=== PATIENT | male | born 1940 | race Caucasian/White ===

== ENCOUNTER 2023-02-01 13:19 | Outpatient (OUT) | payer MEDICARE, OTHER, SELFPAY ==
[2023-02-01 13:39] LABS: Basophils Percent Auto 0.4 % (0.2-2.0); Eosinophils Absolute Auto 0.1 10^3/uL (0.0-0.7); Hemoglobin 14.3 g/dL (14.0-18.0); Immature Granulocytes Abs Auto 0.03 10^3/uL (0.00-0.03); Immature Granulocytes Pct Auto 0.4 % (0.0-0.5); Lymphocytes Absolute Auto 1.8 10^3/uL (1.2-3.8); Lymphocytes Percent Auto 23.4 % (20.5-60.0); Mean Corpuscular HGB Conc 32.5 g/dL (29.9-35.2); Mean Corpuscular Hemoglobin 28.2 pg (25.9-34.0); Mean Corpuscular Volume 86.8 fL (80.0-94.0); Mean Platelet Volume 9.3 fL (9.5-13.5); Monocytes Absolute Auto 0.8 10^3/uL (0.3-0.8); Monocytes Percent Auto 9.8 % (1.7-12.0); Neutrophils Absolute Auto 5.1 10^3/uL (1.4-6.5); Platelet Count 203 10^3/uL (150-450); Red Blood Count 5.07 10^6/uL (4.70-6.10); Red Cell Distribution Width 19.1 % (11.0-15.0); White Blood Count 7.8 10^3/uL (4.0-11.0)
[2023-02-01 14:01] LABS: Percent Iron Saturation 22.3 %
[2023-08-15 13:37] LABS: Reticulocyte Count 1.58 % (0.60-3.10)
== END 2023-02-01 13:20 | disposition home or self-care (01) ==
PROVIDERS: PCP Internal Medicine; Visit Provider Internal Medicine
DX: D64.9 Anemia, unspecified (principal)
CPT/HCPCS: 36415; 82728; 83540; 83550; 85025; 85045

== ENCOUNTER 2023-10-13 15:43 | Outpatient (OUT) | payer MEDICARE, OTHER, SELFPAY ==
[2023-10-13 16:31] LABS: Basophils Percent Auto 0.4 % (0.2-2.0); Eosinophils Absolute Auto 0.2 10^3/uL (0.0-0.7); Eosinophils Percent Auto 2.9 % (0.9-7.0); Hematocrit 43.4 % (42.0-54.0); Hemoglobin 13.1 g/dL (14.0-18.0); Immature Granulocytes Abs Auto 0.01 10^3/uL (0.00-0.03); Immature Granulocytes Pct Auto 0.1 % (0.0-0.5); Lymphocytes Absolute Auto 2.2 10^3/uL (1.2-3.8); Lymphocytes Percent Auto 27.5 % (20.5-60.0); Mean Corpuscular HGB Conc 30.2 g/dL (29.9-35.2); Mean Platelet Volume 10.1 fL (9.5-13.5); Monocytes Percent Auto 12.1 % (1.7-12.0); Neutrophils Absolute Auto 4.5 10^3/uL (1.4-6.5); Platelet Count 236 10^3/uL (150-450); Red Blood Count 5.23 10^6/uL (4.70-6.10); Red Cell Distribution Width 22.1 % (11.0-15.0)
[2023-10-13 17:13] LABS: Percent Iron Saturation 11.2 %
[2023-10-17 15:07] LABS: Alpha-1-Globulin 0.3 g/dL (0.0-0.4); Alpha-2-Globulin 0.7 g/dL (0.4-1.0); Gamma Globulin 0.8 g/dL (0.4-1.8); Immunoglobulin A, Qn, Serum 151 mg/dL (61-437); Immunoglobulin G, Qn, Serum 911 mg/dL (603-1613); Immunoglobulin M, Qn, Serum 53 mg/dL (15-143); Protein, Total 6.8 g/dL (6.0-8.5)
== END 2023-10-13 15:44 | disposition home or self-care (01) ==
LOC: LAB 15:47
PROVIDERS: PCP Internal Medicine; Visit Provider Internal Medicine Hematology & Oncology
DX: D50.9 Iron deficiency anemia, unspecified (principal); R71.8 Other abnormality of red blood cells; K90.9 Intestinal malabsorption, unspecified
CPT/HCPCS: 36415; 82728; 82784; 83540; 83550; 84155; 84165; 85025; 86334

== ENCOUNTER 2023-10-20 15:10 | Outpatient (OUT) | payer MEDICARE, OTHER, SELFPAY ==
[2023-10-20 16:14] LABS: Erythrocyte Sedimentation Rate 12 mm/hr (<=20)
[2023-10-20 16:25] LABS: C Reactive Protein <0.50 mg/dL (<=0.50); Thyroid Stimulating Hormone 1.511 uIU/mL (0.358-3.740)
[2023-10-21 14:59] LABS: C. Difficile PCR NEGATIVE (NEGATIVE)
[2023-10-22 07:09] LABS: HIV Ab/p24 Ag Screen Non Reactive (Non Reactive)
[2023-10-24 15:08] LABS: Deamidated Gliadin Abs, IgA 3 units (0-19); Deamidated Gliadin Abs, IgG 2 units (0-19); Endomysial Antibody IgA Negative (Negative); Immunoglobulin A, Qn, Serum 150 mg/dL (61-437); t-Transglutaminase (tTG) IgA <2 U/mL (0-3); t-Transglutaminase (tTG) IgG 3 U/mL (0-5)
[2023-10-25 19:09] LABS: Ova + Parasite Exam Final report (.)
[2023-10-28 00:08] LABS: Calprotectin, Fecal 102 ug/g (0-120)
== END 2023-10-20 15:11 | disposition home or self-care (01) ==
LOC: LAB 15:11
PROVIDERS: PCP Internal Medicine; Visit Provider Internal Medicine
DX: R00.1 Bradycardia, unspecified (principal); T50.905A Adverse effect of unspecified drugs, medicaments and biological substances, initial encounter; R15.2 Fecal urgency; R19.5 Other fecal abnormalities; K92.89 Other specified diseases of the digestive system; R10.9 Unspecified abdominal pain; D50.8 Other iron deficiency anemias
CPT/HCPCS: 36415; 82656; 82784; 83993; 84443; 85652; 86140; 86231; 86258; 86364; 87045; 87046; 87177; 87209; 87389; 87427; 87493

== ENCOUNTER 2023-10-24 07:54 | Outpatient (RCR) | payer MEDICARE, OTHER, SELFPAY ==
[2023-10-24 12:45] VITALS: BP 145/73; PULSE 63; TEMP 36.8; O2SAT 95
[2023-10-24] MEDS: FERUMOXYTOL 510 MG in 0.9 % SODIUM CHLORIDE 100 ML 234 MG IV (12:57)
--- NOTE | 2023-10-24 13:03 | PC.NURSE ---
1245: Pt to [facility] amb. for iron infusion. Seated in recliner. VSS. Educated benefits of IV iron. Denies questions. IV initiated to right forearm, see documentation. Tolerated without c/o.
--- NOTE | 2023-10-24 13:06 | PC.NURSE ---
1257: IV Feraheme initiated as ordered. Pt given Pepsi. Denies needs.
== END 2023-10-25 23:59 | disposition home or self-care (01) ==
LOC: INF 07:54
PROVIDERS: PCP Internal Medicine; Visit Provider Internal Medicine Hematology & Oncology
DX: D50.9 Iron deficiency anemia, unspecified (principal); R71.8 Other abnormality of red blood cells; K90.9 Intestinal malabsorption, unspecified; D64.9 Anemia, unspecified
CPT/HCPCS: 96365; G0463; Q0138

== ENCOUNTER 2023-11-22 07:31 | Outpatient (RCR) | payer MEDICARE, OTHER, SELFPAY ==
[2023-10-31 12:45] VITALS: BP 157/78; PULSE 65; TEMP 36.2; O2SAT 95
[2023-10-31] MEDS: FERUMOXYTOL 510 MG in 0.9 % SODIUM CHLORIDE 100 ML 234 MG IV (12:55)
--- NOTE | 2023-10-31 13:00 | PC.NURSE ---
1245: Pt. to [facility] amb. for iron infusion. Seated in recliner. VSS. IV initiated, see documentation. Denies needs or c/o. IV Feraheme initiated.
--- NOTE | 2023-10-31 13:37 | PC.NURSE ---
1330: IV Feraheme completed without adverse reaction. IV d/c'd pressure to site. 1335: Pt. d/c'd amb. to home.
[2023-11-22 08:17] LABS: Basophils Percent Auto 0.6 % (0.2-2.0); Eosinophils Absolute Auto 0.2 10^3/uL (0.0-0.7); Eosinophils Percent Auto 2.6 % (0.9-7.0); Hematocrit 47.9 % (42.0-54.0); Hemoglobin 15.3 g/dL (14.0-18.0); Immature Granulocytes Abs Auto 0.02 10^3/uL (0.00-0.03); Immature Granulocytes Pct Auto 0.3 % (0.0-0.5); Lymphocytes Absolute Auto 1.8 10^3/uL (1.2-3.8); Lymphocytes Percent Auto 25.3 % (20.5-60.0); Mean Corpuscular HGB Conc 31.9 g/dL (29.9-35.2); Mean Corpuscular Hemoglobin 27.8 pg (25.9-34.0); Mean Corpuscular Volume 86.9 fL (80.0-94.0); Mean Platelet Volume 9.7 fL (9.5-13.5); Monocytes Absolute Auto 0.9 10^3/uL (0.3-0.8); Monocytes Percent Auto 12.3 % (1.7-12.0); Neutrophils Absolute Auto 4.3 10^3/uL (1.4-6.5); Neutrophils Percent Auto 58.9 % (43.0-75.0); Platelet Count 184 10^3/uL (150-450); Red Blood Count 5.51 10^6/uL (4.70-6.10); Red Cell Distribution Width 24.3 % (11.0-15.0); White Blood Count 7.2 10^3/uL (4.0-11.0)
[2023-11-22 09:49] LABS: Percent Iron Saturation 28.3 %
== END 2023-11-25 23:59 | disposition home or self-care (01) ==
LOC: INF 07:31
PROVIDERS: PCP Internal Medicine; Visit Provider Internal Medicine Hematology & Oncology
DX: D50.9 Iron deficiency anemia, unspecified (principal); K90.9 Intestinal malabsorption, unspecified; D64.9 Anemia, unspecified; Z85.46 Personal history of malignant neoplasm of prostate; Z79.01 Long term (current) use of anticoagulants; R19.7 Diarrhea, unspecified; K21.9 Gastro-esophageal reflux disease without esophagitis
CPT/HCPCS: 36415; 82728; 83540; 83550; 85025; 96365; G0463; Q0138

== ENCOUNTER 2023-12-16 19:57 | Emergency (ER) | payer MEDICARE, OTHER, SELFPAY ==
[2023-12-16] VITALS (8 sets, daily range): BP systolic 146–171; BP diastolic 70–79; PULSE 47–54; O2SAT 92–94
--- OUTSIDE RECORDS SUMMARY | 2023-12-16 20:06 | XMS_ITS | CCD ---
Author Organization [facility] Care Team Providers Care 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 Name Role Phone AHMED, ANNA Unavailable Unavailable AHMED, ANNA Unavailable Unavailable ROLA, IRVING Unavailable Unavailable AHMED, ANNA Unavailable Unavailable PHYSICIAN, DEFAULT Unavailable Unavailable PHYSICIAN, DEFAULT Unavailable Unavailable ROLA, IRVING Unavailable Unavailable Irving Canela Unavailable Unavailable Unavailable Rola, DO Villatoro Primary Care Provider [phone] DO Alfred Baron Attending Provider [phone] Rola, DO Villatoro Primary Care Provider DO Alfred Baron Attending Provider [phone] Irving Canela Unavailable Rola, DO Villatoro Primary Care Provider DO Alfred Baron Attending Provider [phone] ROLA, DR VILLATORO Primary Care Unavailable MISC, DR DUMONT Attending Unavailable MISC, DR DUMONT Admitting Unavailable MISC, DR DUMONT Consulting Unavailable SIM ., DR BEAU Ferrer Attending Unavailable ROLA, DR VILLATORO Primary Care Unavailable SIM ., DR BEAU Ferrer Admitting Unavailable RUBY .RADHA Consulting Unavailable RUBY ., RADHA Consulting Unavailable ROLA, DR VILLATORO Primary Care Unavailable SIM ., DR BEAU Ferrer Admitting Unavailable SIM ., DR BEAU Ferrer Attending Unavailable SIM ., DR BEAU Ferrer Attending Unavailable ROLA, DR VILLATORO Primary Care Unavailable SIM ., DR BEAU Ferrer Admitting Unavailable SIM ., DR BEAU Ferrer Consulting Unavailable SIM ., DR BEAU Ferrer Admitting Unavailable ROLA, DR VILLATORO Consulting Unavailable ROLA, DR VILLATORO Primary Care Unavailable SIM ., DR BEAU Ferrer Attending Unavailable SIM ., DR BEAU Ferrer Consulting Unavailable EUBANKS, DR PHILL Floyd Primary Care Unavailable SIM ., DR BEAU Ferrer Attending Unavailable SIM ., DR BEAU Frerer Admitting Unavailable SIM ., DR BEAU Ferrer Consulting Unavailable SIM ., DR BEAU Ferrer Attending Unavailable BALL, DR VILLATORO Primary Care Unavailable SIM ., DR BEAU Ferrer Admitting Unavailable SIM ., DR BEAU Ferrer Consulting Unavailable JARRED GRIFFITH Consulting Unavailable SIM ., DR BEAU Ferrer Attending Unavailable SIM ., DR BEAU Ferrer Admitting Unavailable SIM ., DR BEAU Ferrer Consulting Unavailable BALL, DR VILLATORO Primary Care Unavailable BALL, DR VILLATORO Primary Care Unavailable EUBANKS, DR PHILL Floyd Attending Unavailable EUBANKS, DR PHILL Floyd Admitting Unavailable BALL, DR VILLATORO Primary Care Unavailable SIM ., DR BEAU Ferrer Attending Unavailable SIM ., DR BEAU Ferrer Admitting Unavailable SIM ., DR BEAU Ferrer Consulting Unavailable EUBANKS, DR PHILL Floyd Admitting Unavailable EUBANKS, DR PHILL Floyd Attending Unavailable BALL, DR VILLATORO Primary Care Unavailable MANILA, DR KIKA Carranza Consulting Unavailable EUBANKS, DR PHILL Floyd Consulting Unavailable EUBANKS, DR PHILL Floyd Attending Unavailable BALL, DR VILLATORO Primary Care Unavailable ZIEBER, DR LYNDA Burgess Consulting Unavailable EUBANKS, DR PHILL Floyd Admitting Unavailable EUBANKS, DR PHILL Floyd Consulting Unavailable BALL, DR VILLATORO Primary Care Unavailable BALL, DR VILLATORO Consulting Unavailable BALL, DR VILLATORO Attending Unavailable BALL, DR VILLATORO Admitting Unavailable BALL, DR VILLATORO Consulting Unavailable BALL, DR VILLATORO Attending Unavailable BALL, DR VILLATORO Admitting Unavailable BALL, DR VILLATORO Primary Care Unavailable MD Carlos Corbett Jr Emergency Provider MD Karol Sage Admit Provider MD Karol Sage Attending Provider [phone] Markell Garza Unavailable DO Irving Canela Primary Care Provider [phone] DO Alfred Baron Attending Provider [phone] Dr. Irving Canela Primary Care Hayden Baron, Dr. Brendon Carrion Attending Eliezer Baron, Dr. Brendon Carrion Referring Eliezer Aden, Ms. Florence Vergara Referring Hayden Aden, Ms. Florence Vergara Attending Hayden Canela, Dr. Irving Dumont Primary Care Hayden Aden, Ms. Florence Vergara Attending Hayden Canela, Dr. Irving Dumont Primary Care Rose Ochoa Attending Unavailable Rose Green Referring Unavailable Rola, Dr. Irving Dumont Primary Care Hayden Aden, Florencecatalina Vergara Referring Hayden Canela, Dr. Irving Dumont Primary Care Hayden Aden, MsPam Florencecatalina Vergara Attending Hayden Aden, Florencecatalina Vergara Referring Eliezerthai Canela, Dr. Irving Dumont Primary Care Hayden Aden, Florencecatalina Vergara Attending Hayden Aden, Florencecatalina Vergara Referring Beatrisvai alyciaama Canela, Dr. Irving Dumont Primary Care Hayden Aden, Ms. Florence Vergara Attending MD Markell Rosales Attending Provider Irving Canela DO Primary Care Provider DO Irving Canela Primary Care Provider [phone] DO Alfred Baron Attending Provider [phone] Bethel CHAIREZ Attending Unavailable BRENDON BARON Attending Unavailable IRVING CANELA Primary Care Unavailable BASHIR BARBOSA Attending Unavailable BASHIR BARBOSA Attending Unavailable BASHIR BARBOSA Attending Unavailable BASHIR BARBOSA Attending Unavailable MD Colleen Ochoa Attending Provider MD Miriam Juarez Attending Provider Miriam Juarez Admitting Unavailable Miriam Juarez Attending Unavailable Alfred Baron Attending Unavailable Irving Canela Primary Care Unavailable Alfred Baron Admitting Unavailable Alfred Baron Admitting Unavailable Alfred Baron Attending Unavailable Irving Canela Primary Care Unavailable Irving Canela Primary Care Unavailable Asafely Imad Admitting Unavailable Colleen Ochoa Attending Unavailable Irving Canela Primary Care Unavailable Markell Garza Admitting UnavailMarkell Crook Attending Unavailemre floyd Allergies Allergy Classification Reported Allergen(s) Allergy Type Date of Onset Reaction(s) Facility Platelet Inhibitors (P2Y12, not including aspirin) (1 source) clopidogrel Drug Allergy 11-15-2023 [facility] Repository (3 sources) clopidogrel; Translations: [Plavix] Drug Allergy 06-09-2016 [facility] (1 source) Ticagrelor Drug Allergy 06-09-2016 [facility] (20 sources) clopidogrel; Translations: [Plavix] Drug Allergy 06-24-2023 [facility] (7 sources) clopidogrel; Translations: [CLOPIDOGREL] Drug Allergy 06-12-[address] [facility] (1 source) prasugrel Drug Allergy [facility] Repository Medications Current Medications Medication Drug Class(es) Dates Sig (Normalized) Sig (Original) amiodarone hydrochloride 100 mg oral tablet (20 sources) Antiarrhythmic Start: 04-21-2023 Amiodarone Active 50 MG PO MoWeFr@0900 April 21, 2023 8:09am Start: 10-29-2022 End: 10-29-2022 Amiodarone Discontinued 0 .R OUTE .COMPLEX October 29, 2022 12:00am October 29, 2022 2:17pm 100 mg orally Start: 10-29-2022 End: 04-21-2023 Amiodarone Discontinued 100 MG PO MoWeFr@0900 October 29, 2022 12:00am April 21, 2023 8:09am Start: 10-15-2022 take 1 tablet by tavo th once daily Amiodarone HCl - 100 MG Oral Tablet TAKE 1 TABLET DAILY. Quantity: 90 Refills: 1 Ordered: 15-Oct-2022 Brendon Baron DO Start : 15-Oct-2022 Active Start: 01-05-2022 amiodarone (Pa cerone) 200 mg tablet Take 1 tablet (200 mg) by mouth. Take one tablet by mouth every Tue, Tue, Tue 0 01/05/2022 Active Start: 01-05-2022 Amiodarone HCl - 200 MG Oral Tablet 0.5 tablet tuesday through Fridays only Quantity: 60 Refills: 1 Ordered: 18-Jan-2022 Brendon Baron DO Start : 05-Jan-2022 Active dose decreased Start: 10-07-2021 take 1 tablet by tavo th once daily Amiodarone HCl - 200 MG Oral Tablet TAKE 1 TABLET BY MOUTH EVERY DAY Quantity: 90 Refills: 2 Ordered: 29-Oct-2021 Florence Zamarripa Start : 07-Oct-2021 Active take 1 tablet by tavo th every other day Amiodarone HCl 100 MG 1 tablet Orally qod Active amLODIPine 2.5 mg oral tablet (20 sources) Dihydropyridine Calcium Channel Mulugeta Start: 09-13-2023 take 2.5 mg by mouth once daily Amlodipine Active 2.5 MG PO Daily September 13, 2023 12:00am Start: 10-26-2022 take 1 tablet by tavo th every twenty-four hours amLODIPine Besylate 2.5 MG 1 tablet Orally Once a day October, Active Start: 10-26-2022 take 1 tablet by tavo th every twenty-four hours amLODIPine Besylate 5 MG 1 tablet Orally Once a day October, Active Start: 09-02-2021 take 1 tablet by mouth once da [facility] amLODIPine Besylate 10 MG Oral Tablet TAKE 1 TABLET BY MOUTH EVERY DAY Quantity: 90 Refills: 3 Ordered: 02-Sep-2021 Florence Zamarripa Start : 02-Sep-2021 Active Start: 06-12-2021 End: 06-13-2021 take 10 mg by mouth once daily Amlodipine Discontinued 10 MG PO Daily June 12, 2021 1:00am June 13, 2021 12:21pm apixaban 5 mg oral tablet (20 sources) Factor Xa Inhibitor Start: 09-25-2021 take 1 tablet by mouth twice daily Apixaban (Eliquis) 5 mg Tablet Active 5 MG PO Twice daily October 29, 2022 12:00am aspirin 81 mg delayed release oral tablet (20 sources) Platelet Aggregation Inhibitor, Nonsteroidal Anti-inflammatory Drug Start: 01-05-2022 aspirin 81 mg EC tablet Take 1 tablet (81 mg) by mouth. Take one tablet by mouth every Mon, Wed, Fri 0 01/05/2022 Active Start: 06-12-2021 End: 09-13-2023 take 81 mg by mouth three times weekly Aspirin Discontinued 81 MG PO 3 Times a week June 12, 2021 1:00am September 13, 2023 11:53am Start: 06-12-2021 take 81 mg by mouth once daily Aspirin Active 81 MG PO Daily June 12, 2021 1:00am take 1 tablet by tavo th once daily Aspirin EC 81 MG Oral Tablet Delayed Release TAKE 1 TABLET DAILY. Quantity: 90 Refills: 3 Ordered: 02-Sep-2021 DO Active atorvastatin 80 mg oral tablet (20 sources) HMG-CoA Reductase Inhibitor Start: 10-29-2022 take 40 mg by mouth once daily at bedtime Atorvastatin Active 40 MG PO Daily at bedtime October 29, 2022 12:21am Start: 01-05-2022 End: 07-24-2024 take 1 tablet by mouth once daily at bedtime atorvastatin (Lipitor) 40 mg tablet Indications: H/O non-ST elevation myocardial infarction (NSTEMI) Take 1 tablet (40 mg) by mouth once daily at bedtime. 90 tablet 3 07/25/2023 07/24/2024 Active Start: 06-13-2021 End: 10-29-2022 take 80 mg by mouth once daily Atorvastatin Discontinu ed 80 MG PO Daily June 13, 2021 1:00am October 29, 2022 12:22am Start: 06-12-2021 End: 06-13-2021 take 20 mg by mouth once daily Atorvastatin Discontinu ed 20 MG PO Daily June 12, 2021 1:00am June 13, 2021 12:21pm 24 hr isosorbide mononitrate 30 mg extended release oral tablet (20 sources) Nitrate Vasodilator Start: 06-12-2021 End: 07-24-2024 take 30 mg by mouth once daily Isosorbide Mononitrate Active 30 MG PO Daily June 12, 2021 1:00am loratadine 10 mg oral tablet (20 sources) Start: 06-12-2021 take 10 mg by mouth once daily Loratadine Active 10 MG PO Daily June 12, 2021 1:00am take 1 tablet by mouth once darwin y loratadine 10 mg capsule Take 1 tablet by mouth once daily. 0 Active nitroglycerin 0.4 mg sublingual tablet (20 sources) Nitrate Vasodilator Start: 09-13-2023 Nitroglyce rin Active 0.4 MG SUBLINGUAL .COMPLEX September 13, 2023 12:00am 0.4 mg sublingually PRN; do not exceed 3 doses per episode Start: 11-29-2022 Nitroglycerin 0.4 MG Sublingual Tablet Sublingual DISSOLVE 1 TABLET UNDER THE TONGUE NEEDED FOR CHEST PAIN. Quantity: 25 Refills: 3 Ordered: 29-Nov-2022 Jai Aden APRN-Florence BENSON Start : 29-Nov-2022 Active Nitroglycerin 0. 4 MG 1 tablet Sublingual prn chest pain Active pantoprazole 40 mg delayed release oral tablet (20 sources) Proton Pump Inhibitor Start: 04-21-2023 take 40 mg by mouth once daily Pantoprazole Active 40 MG PO Daily April 21, 2023 12:00am polysaccharide iron complex 150 mg oral capsule (9 sources) Start: 09-09-2022 take 1 capsule by mouth every twenty-four hours Ferrex 150 150 MG 1 capsule Orally Once a day for 30 days Aug, Active sulfamethoxazole 800 mg / trimethoprim 160 mg oral tablet (2 sources) Dihydrofolate Reductase Inhibitor Antibacterial, Sulfonamide Antimicrobial Start: 11-15-2023 take 1 tablet by mouth twice daily Sulfamethoxazole- Trimethoprim Active 1 TAB PO Twice daily 15 04November 15, 2023 12:00am zinc gluconate 50 mg oral tablet (20 sources) take 1 tablet by mouth once daily zinc gluconate 50 mg tablet Take 1 tablet (50 mg) by mouth once daily. 0 Active Completed/Discontinued Medications Medication Drug Class(es) Dates Sig (Normalized) Sig (Original) amitriptyline hydrochloride 10 mg oral tablet (20 sources) Tricyclic Antidepressant Start: 09-13-2023 End: 10-17-2023 take 10 mg by mouth once daily at bedtime Amitriptyline Discontinued 10 MG PO Daily at bedtime September 13, 2023 12:00am October 17, 2023 2:29pm take 1 tablet by tavo th every twenty-four hours Amitriptyline HCl 10 MG 1 tablet at bedtime Orally Once a day Active cholecalciferol 0.05 mg oral capsule (20 sources) Vitamin D Start: 06-12-2021 End: 09-13-2023 take 1 capsule by mouth once daily Cholecalciferol (Vitamin D3) (Vitamin D3) 50 mcg (2,000 unit) Capsule Discontinued 50 MCG PO Daily June 12, 2021 1:00am September 13, 2023 11:53am 24 hr metoprolol succinate 50 mg extended release oral tablet (13 sources) beta-Adrenergic Mulugeta Start: 06-13-2021 End: 10-29-2022 take 50 mg by mouth once daily Metoprolol Succinate Discontinued 50 MG PO Daily June 13, 2021 1:00am October 29, 2022 12:18am ticagrelor 90 mg oral tablet (20 sources) Start: 06-13-2021 End: 10-29-2022 take 1 tablet by mouth twice daily Ticagrelor (Brilinta) 90 mg tablet Discontinued 90 MG PO Twice daily 60 June 13, 2021 1:00am October 29, 2022 12:18am traZODone hydrochloride 50 mg oral tablet (11 sources) Serotonin Reuptake Inhibitor Start: 08-26-2023 End: 10-26-2023 take 50 mg by mouth once daily at bedtime Trazodone Discontinued 50 MG PO Daily at bedtime August 26, 2023 6:03pm October 26, 2023 8:34am Start: 08-04-2023 take 0.5-1 tablets b y mouth once at bedtime traZODone HCl 50 MG 1/2 - 1 tablet Orally q HS for 30 days Jul, Active Zinc (11 sources) Start: 06-12-2021 End: 04-21-2023 take 50 mg by mouth once daily Zinc Discontinued 50 MG PO Daily June 12, 2021 1:00am April 21, 2023 8:09am Start: 06-12-2021 take 50 mg by mouth once daily Zinc Active 50 MG PO Daily June 12, 2021 12:00am Start: 06-12-2021 take 50 mg by mouth once daily Zinc Active 50 MG PO Daily June 12, 2021 1:00am Problems Active Problems Problem Classification Problem Date Documented Da te Episodic/Chronic Abdominal pain (13 sources) Right upper quadrant pain; Translations: [Right upper quadrant pain] Onset: 6 10-17-2023 Episodic Acute bronchitis (4 sources) Acute bronchitis; Translations: [Acute bronchitis due to other specified organisms] Episodic Acute myocardial infarction (20 sources) Myocardial infarction; Translations: [Non-ST elevation (NSTEMI) myocardial infarction] Onset: 1 06-12-2021 Chronic Anxiety disorders (4 sources) Generalized anxiety disorder; Translations: [Generalized anxiety disorder] Onset: 8 Chronic Attention-deficit, conduct, and disruptive behavior disorders (4 sources) Attention deficit hyperactivity disorder; Translations: [Attention-deficit hyperactivity disorder, unspecified type] Chronic Cancer of prostate (4 sources) Malignant tumor of prostate; Translations: [Malignant neoplasm of prostate] Onset: 6 Chronic Cancer of prostate (20 sources) Personal history of malignant neoplasm of prostate; Translations: [History of malignant neoplasm of prostate] Onset: 8 Episodic Cardiac dysrhythmias (20 sources) Paroxysmal atrial fibrillation; Translations: [Atrial fibrillation] Onset: 3 Chronic Conditions associated with dizziness or vertigo (8 sources) Dizziness; Translations: [Dizziness and giddiness] 10-28-2022 Episodic Coronary atherosclerosis and other heart disease (20 sources) Unstable angina; Translations: [Old myocardial infarction] Onset: 5 06-13-2021 Chronic Deficiency and other anemia (7 sources) Iron deficiency anemia due to blood loss; Translations: [Iron deficiency anemia secondary to blood loss (chronic)] 09-14-2023 Chronic Deficiency and other anemia (9 sources) Iron deficiency anemia secondary to blood loss (chronic); Translations: [Iron deficiency anemia secondary to blood loss (chronic)] Chronic Deficiency and other anemia (16 sources) Iron deficiency anemia; Translations: [Iron deficiency anemia, unspecified] 09-13-2023 Episodic Deficiency and other anemia (8 sources) Iron deficiency anemia, unspecified; Translations: [Iron deficiency anemia, unspecified] Onset: 3 Episodic Deficiency and other anemia (1 source) Anemia, unspecified Episodic Disorders of lipid metabolism (20 sources) Hyperlipidemia, unspecified; Translations: [Mixed hyperlipidemia] Onset: 5 06-13-2021 Chronic Disorders of teeth and jaw (1 source) Jaw pain; Translations: [JAW PAIN] Onset: 8 Episodic Esophageal disorders (20 sources) Gastro-esophageal reflux disease with esophagitis; Translations: [Gastroesophageal reflux disease with esophagitis without hemorrhage] Onset: 3 Chronic Essential hypertension (20 sources) Essential (primary) hypertension; Translations: [Benign hypertension] Onset: 8 06-12-2021 Chronic Gastrointestinal hemorrhage (12 sources) Rectal hemorrhage; Translations: [Hemorrhage of anus and rectum] Episodic Headache; including migraine (12 sources) Episodic tension-type headache; Translations: [Episodic tension-type headache, not intractable] 09-13-2023 Chronic Immunizations and screening for infectious disease (4 sources) Vaccination given; Translations: [Encounter for immunization] Episodic Inflammatory conditions of male genital organs (2 sources) Orchitis; Translations: [Orchitis] 11-15-2023 Episodic Influenza (4 sources) Influenza due to Influenza A virus with upper respiratory signs; Translations: [Influenza due to other identified influenza virus with other respiratory manifestations] Episodic Melanomas of skin (20 sources) Malignant melanoma; Translations: [Malignant melanoma of skin, unspecified] 09-13-2023 Chronic Melanomas of skin (1 source) Personal history of malignant melanoma of skin; Translations: [PERSONAL HISTORY OF MALIGNANT MELANOMA OF SKIN] Onset: 8 Episodic Miscellaneous mental health disorders (20 sources) Primary insomnia; Translations: [Primary insomnia] Chronic Occlusion or stenosis of precerebral arteries (4 sources) Carotid artery occlusion; Translations: [Occlusion and stenosis of unspecified carotid artery] Onset: 7 Chronic Osteoarthritis (20 sources) Arthritis of right hip; Translations: [Unilateral primary osteoarthritis, right hip] Chronic Other aftercare (1 source) watermaster (current) use of aspirin; Translations: [[facility] (CURRENT) USE OF ASPIRIN] Onset: 8 Episodic Other aftercare (20 sources) Drug therapy finding; Translations: [Long-term (current) use of anticoagulants] Episodic Other aftercare (1 source) Other oil heaterman (current) drug therapy; Translations: [Other penitentiary (current) drug therapy] Onset: 4 Episodic Other and unspecified benign neoplasm (17 sources) Benign neoplasm of colon; Translations: [Benign neoplasm of descending colon] Episodic Other and unspecified benign neoplasm (1 source) Benign neoplasm of descending colon Episodic Other and unspecified benign neoplasm (4 sources) Benign neoplasm of descending colon; Translations: [Benign neoplasm of descending colon] Episodic Other and unspecified benign neoplasm (5 sources) Adenomatous polyp of colon ; Translations: [Benign neoplasm of descending colon] 09-13-2023 Episodic Other circulatory disease (20 sources) Cardiac function test normal; Translations: [Normal cardiac ejection fraction] Episodic Other circulatory disease (20 sources) Cardiovascular symptoms; Translations: [Other specified symptoms and signs involving the circulatory and respiratory systems] Episodic Other gastrointestinal disorders (20 sources) Irritable bowel syndrome with diarrhea; Translations: [Irritable bowel syndrome with diarrhea] 09-13-2023 Chronic Other gastrointestinal disorders (11 sources) Irritable bowel syndrome with diarrhea; Translations: [Irritable bowel syndrome] Chronic Other gastrointestinal disorders (4 sources) Irritable bowel syndrome characterized by constipation; Translations: [Irritable bowel syndrome with constipation] Onset: 8 Chronic Other gastrointestinal disorders (4 sources) Fecal urgency; Translations: [Fecal urgency] Episodic Other gastrointestinal disorders (1 source) Change in bowel habit Episodic Other gastrointestinal disorders (2 sources) Altered bowel function; Translations: [Other specified symptoms and signs involving the digestive system and abdomen] 04-21-2023 Episodic Other gastrointestinal disorders (3 sources) Loose stool; Translations: [Other fecal abnormalities] 10-17-2023 Episodic Other gastrointestinal disorders (3 sources) Disorder of gastrointestinal tract; Translations: [Other specified diseases of the digestive system] 10-17-2023 Episodic Other gastrointestinal disorders (3 sources) Urgent desire for stool; Translations: [Fecal urgency] 10-17-2023 Episodic Other gastrointestinal disorders (3 sources) Other specified diseases of the digestive system; Translations: [Other specified disorders of intestine] 10-17-2023 Episodic Other gastrointestinal disorders (3 sources) Other fecal abnormalities; Translations: [Abnormal feces] 10-17-2023 Episodic Other gastrointestinal disorders (1 source) Diarrhea, unspecified; Translations: [Diarrhea, unspecified] Onset: Episodic Other inflammatory condition of skin (12 sources) Pruritic rash; Translations: [Other prurigo] 09-13-2023 Episodic Other injuries and conditions due to external causes (4 sources) History of fall; Translations: [History of falling] Episodic Other lower respiratory disease (1 source) Shortness of breath; Translations: [SHORTNESS OF BREATH] Onset: 8 Episodic Other lower respiratory disease (20 sources) Solitary nodule of lung; Translations: [Solitary pulmonary nodule] Episodic Other lower respiratory disease (4 sources) Dyspnea; Translations: [Dyspnea, unspecified] 10-28-2022 Episodic Other lower respiratory disease (1 source) Dyspnea, unspecified; Translations: [Other respiratory abnormalities] 10-28-2022 Episodic Other lower respiratory disease (5 sources) Nodule of lung; Translations: [Solitary pulmonary nodule] 09-13-2023 Episodic Other nervous system disorders (11 sources) Hereditary disorder of nervous system; Translations: [Hereditary and idiopathic neuropathy, unspecified] Chronic Other nervous system disorders (1 source) Other chronic pain; Translations: [OTHER CHRONIC PAIN] Onset: 2 Chronic Other nervous system disorders (5 sources) Neuropathy; Translations: [Hereditary and idiopathic neuropathy, unspecified] 09-13-2023 Chronic Other nervous system disorders (20 sources) Paresthesia; Translations: [Paresthesia of skin] 09-13-2023 Episodic Other non-epithelial cancer of skin (16 sources) Basal cell carcinoma; Translations: [Basal cell carcinoma of skin, unspecified] 09-13-2023 Episodic Other non-traumatic joint disorders (7 sources) Arthralgia of the pelvic region and thigh; Translations: [Pain in right hip] Episodic Other non-traumatic joint disorders (4 sources) Pain in right hip joint; Translations: [Pain in right hip] Episodic Other nutritional; endocrine; and metabolic disorders (4 sources) Simple obesity ; Translations: [Other obesity due to excess calories] Onset: 5 Chronic Other nutritional; endocrine; and metabolic disorders (4 sources) Obesity; Translations: [Obesity, unspecified] Onset: 5 Chronic Other nutritional; endocrine; and metabolic disorders (20 sources) Overweight in adulthood with body mass index of 25 or more but less than 30; Translations: [Overweight] Episodic Other nutritional; endocrine; and metabolic disorders (4 sources) Overweight; Translations: [Overweight] Episodic Other nutritional; endocrine; and metabolic disorders (2 sources) Overweight Episodic Other upper respiratory disease (11 sources) Allergic rhinitis due to pollen; Translations: [Allergic rhinitis due to pollen] Chronic Otitis media and related conditions (1 source) Unspecified Eustachian salpingitis, bilateral Episodic Residual codes; unclassified (1 source) Personal history of irradiation; Translations: [PERSONAL HISTORY OF IRRADIATION] Onset: 8 Episodic Residual codes; unclassified (7 sources) Edema; Translations: [Localized edema] Episodic Residual codes; unclassified (4 sources) Localized edema; Translations: [Localized edema] Episodic Residual codes; unclassified (4 sources) Tobacco user; Translations: [Tobacco use] Episodic Residual codes; unclassified (3 sources) Bilateral lower limb edema; Translations: [Localized edema] 09-13-2023 Episodic Retinal detachments; defects; vascular occlusion; and retinopathy (4 sources) Retinal disorder; 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] Onset: 5 Chronic Screening and history of mental health and substance abuse codes (20 sources) Personal history of nicotine dependence; Translations: [Ex-smoker] Onset: 8 Episodic Comment on above: quit 1995ish; Spondylosis; intervertebral disc disorders; other back problems (20 sources) Lumbar spondylosis; Translations: [Spondylosis without myelopathy or radiculopathy, lumbar region] Onset: 4 Chronic Spondylosis; intervertebral disc disorders; other back problems (12 sources) Low back pain; Translations: [Lumbar pain] 09-13-2023 Episodic Sprains and strains (5 sources) Strain of biceps brachii muscle and/or tendon; Translations: [Strain of muscle, fascia and tendon of other parts of biceps, left arm, initial encounter] Episodic Syncope (5 sources) Near syncope; Translations: [Syncope and collapse] 10-28-2022 Episodic Unclassified (2 sources) Unknown / UNK(Unknown) Onset: 8 Unclassified (4 sources) CONTACT W/AND (SUSP) EXPOS COVID-19; Translations: [CONTACT W/AND (SUSP) EXPOS COVID-19] Onset: 2 Unclassified (4 sources) LOW BACK PAIN, UNSPECIFIED; Translations: [LOW BACK PAIN, UNSPECIFIED] Onset: 2 Unclassified (4 sources) Exposure to acute respiratory syndrome coronavirus 2; Translations: [Contact with and (suspected) exposure to COVID-19] Viral infection (4 sources) Viral disease; Translations: [Viral infection, unspecified] Episodic Viral infection (4 sources) Disease caused by 2019-nCoV; Translations: [COVID-19] Past or Other Problems Problem Classification Problem Date Documented Da te Episodic/Chronic Allergic reactions (8 sources) Allergic contact dermatitis due to plants, except food; Translations: [Allergic contact dermatitis due to plants, except food] Onset: 06-14-2016 Resolved: 04-13-2021 Episodic Cardiac dysrhythmias (20 sources) Bradycardia; Translations: [Other specified cardiac dysrhythmias] Onset: 06-24-2023 Episodic Coronary atherosclerosis and other heart disease (20 sources) Presence of coronary angioplasty implant and graft; Translations: [Patient post percutaneous transluminal coronary angioplasty] Onset: 05-09-2018 10-28-2022 Episodic E Codes: Adverse effects of medical drugs (4 sources) Adverse effect of antithrombotic drugs, initial encounter; Translations: [Adverse effect of antithrombotic drugs, initial encounter] Onset: 06-14-2016 Episodic Esophageal disorders (2 sources) Esophageal disorders Genitourinary symptoms and ill-defined conditions (4 sources) Dysuria; Translations: [Dysuria] Onset: 07-14-2018 Episodic Hypertension with complications and secondary hypertension (4 sources) Malignant hypertensive chronic kidney disease; Translations: [Hypertensive chronic kidney disease with stage 1 through stage 4 chronic kidney disease, or unspecified chronic kidney disease] Resolved: 06-02-2022 Chronic Nonspecific chest pain (9 sources) Chest pain, unspecified; Translations: [Chest pain] Onset: 04-21-2015 Episodic Other connective tissue disease (1 source) Myalgia, unspecified site; Translations: [MYALGIA UNSPECIFIED SITE] Onset: 01-23-2022 Episodic Other eye disorders (4 sources) Dermatochalasis of unspecified eye, unspecified eyelid; Translations: [DERMATOCHALASIS UNS EYE UNS EYELID] Onset: 04-20-2022 Episodic Other eye disorders (1 source) Unspecified ptosis of unspecified eyelid; Translations: [UNSPEC PTOSIS OF UNS EYELID] Onset: 04-25-2022 Episodic Other gastrointestinal disorders (4 sources) Flatulence, eructation and gas pain; Translations: [Abdominal distension (gaseous)] Onset: 04-13-2016 Episodic Other gastrointestinal disorders (2 sources) Other specified symptoms and signs involving the digestive system and abdomen; Translations: [Other symptoms involving digestive system] Onset: 04-21-2023 04-21-2023 Episodic Other inflammatory condition of skin (4 sources) Itching of skin; Translations: [Pruritus, unspecified] Onset: 02-06-2018 Episodic Other inflammatory condition of skin (4 sources) Intertrigo; Translations: [Erythema intertrigo] Onset: 03-26-2015 Episodic Other lower respiratory disease (4 sources) Cough; Translations: [Cough, unspecified] Onset: 07-10-2014 Episodic Other lower respiratory disease (4 sources) Lung field abnormal; Translations: [Other nonspecific abnormal finding of lung field] Onset: 06-14-2016 Episodic Other non-traumatic joint disorders (4 sources) Pain in right hip; Translations: [PAIN IN RIGHT HIP] Onset: 12-29-2021 Episodic Other screening for suspected conditions (not mental disorders or infectious disease) (4 sources) Blood chemistry abnormal; Translations: [Other specified abnormal findings of blood chemistry] Resolved: 06-02-2022 Episodic Unclassified (1 source) CONTACT W/AND (SUSP) EXPOS COVID-19; Translations: [CONTACT W/AND (SUSP) EXPOS COVID-19] Onset: 06-15-2022 Unclassified (1 source) LOW BACK PAIN, UNSPECIFIED; Translations: [LOW BACK PAIN, UNSPECIFIED] Onset: 02-09-2022 Unclassified (1 source) Onset: 07-25-2023 07-25-2023 Results Test Name Value Interpretation Reference Range Facility Basophils Auto (Bld) [#/Vol] on 11-22-2023 Basophils (Bld) [#/Vol] 0.0 10 3/uL 0.0-0.1 [facility] Basophils/100 WBC Auto (Bld) on 11-22-2023 Basophils/100 WBC (Bld) 0.6 % 0.2-2.0 [facility] Eosinophils/100 WBC Auto (Bl d)on 11-22-2023 Eosinophils/100 WBC (Bld) 2.6 % 0.9-7.0 [facility] Erythrocyte distribution wid th Auto (RBC) [Ratio]on 11-22-2023 Erythrocyte distribution width (RBC) [Ratio] 24.3 % 11.0-15.0 [facility] Ferritinon 11-22-2023 Ferritin [Mass/Vol] 146.7 ng/mL Normal 23.9-336.2 [facility] Comment on above: Result Comment: PERF ORMED BY: [place] [id number] PATHOLOGIST CABIN SUPERVISOR GABINO ARCOS M.D. Performed By: #### F ER #### [address] Ferritin [Mass/volume] in Se rum or PlasmaOrdered By: Miriam Juarez on 11-22-2023 Ferritin [Mass/Vol] 146.7 ng/mL 23.9-336.2 [facility] Hematocrit Auto (Bld) [Volum e fraction]on 11-22-2023 Hematocrit (Bld) [Volume fraction] 47.9 % 42.0-54.0 [facility] Hemoglobin [Mass/volume] in Bloodon 11-22-2023 Hemoglobin (Bld) [Mass/Vol] 15.3 g/dL 14.0-18.0 [facility] Iron binding capacity [Mass/ volume] in Serum or Plasmaon 11-22-2023 Iron binding capacity [Mass/Vol] 293.0 ug/dL 250.0-450.0 [facility] Iron saturation [Mass Fracti on] in Serum or Plasmaon 11-22-2023 Iron saturation [Mass fraction] 28.3 % [facility] - Chemistry and C hemistry - challengeon 11-22-2023 Iron [Mass/Vol] 83.0 ug/dL 65.0-175.0 [facility] - Hematology and Cell countson 11-22-2023 Immature granulocytes/100 WBC (Bld) 0.3 % 0.0-0.5 [facility] Leukocytes [#/volume] correc augustine for nucleated erythrocytes in Blood by Automated counon 11-22-2023 WBC corrected for nucl RBC Auto (Bld) [#/Vol] 7.2 10 3/uL 4.0-11.0 [facility] Lymphocytes Auto (Bld) [#/Vo l]on 11-22-2023 Lymphocytes (Bld) [#/Vol] 1.8 10 3/uL 1.2-3.8 [facility] Lymphocytes/100 WBC Auto (Bl d)on 11-22-2023 Lymphocytes/100 WBC (Bld) 25.3 % 20.5-60.0 [facility] MCH Auto (RBC) [Entitic mass ]on 11-22-2023 MCH (RBC) [Entitic mass] 27.8 pg 25.9-34.0 [facility] MCHC Auto (RBC) [Mass/Vol]on 11-22-2023 MCHC (RBC) [Mass/Vol] 31.9 g/dL 29.9-35.2 [facility] MCV Auto (RBC) [Entitic vol] on 11-22-2023 MCV (RBC) [Entitic vol] 86.9 fL 80.0-94.[address] [facility] Monocytes Auto (Bld) [#/Vol] on 11-22-2023 Monocytes (Bld) [#/Vol] 0.9 10 3/uL 0.3-0.8 [facility] Monocytes/100 WBC Auto (Bld) on 11-22-2023 Monocytes/100 WBC (Bld) 12.3 % 1.7-12.[address] [facility] Neutrophils Auto (Bld) [#/Vo l]on 11-22-2023 Neutrophils (Bld) [#/Vol] 4.3 10 3/uL 1.4-6.5 [facility] Neutrophils/100 WBC Auto (Bl d)on 11-22-2023 Neutrophils/100 WBC (Bld) 58.9 % 43.0-75.0 [facility] No Panel Informationon 11-21 Eosinophils # (Auto) 0.2 10 3/uL 0.0-0.7 [facility] Immature Granulocyte # (Auto) 0.02 10 3/uL 0.00-0.03 [facility] Platelet mean volume Auto (B ld) [Entitic vol]on 11-22-2023 Platelet mean volume (Bld) [Entitic vol] 9.7 fL 9.5-13.5 [facility] Platelets Auto (Bld) [#/Vol] on 11-22-2023 Platelets (Bld) [#/Vol] 184 10 3/uL 150-450 [facility] RBC Auto (Bld) [#/Vol]on RBC (Bld) [#/Vol] 5.51 10 6/uL 4.70-6.10 [facility] Paulo 10-26-2023 L Specimen: [id number] Received: 10/26/23 Status: ANSHUL Zraate Num: [id number] Spec Type: Surgical Subm Dr: Colleen Ochoa MD Tissues: A Colon Biopsy (RANDOM COLON BX) B Colon Biopsy (RECTAL POLYPS) Procedures: HE/4, Gross/Micro L4/2 Age/ Patient Sex Location Account Attending Physician Valentín Buckner 83/M [id number] Colleen Ochoa MD SPEC NUM: [id number] RECD: 10/26/23 STATUS: ANSHUL ZARATE NUM: [id number] MODESTA: 10/26/23- [facility] DR: Colleen Ochoa MD ENTERED: 10/26/23 [facility] DR: SPEC TYPE: Surgical DEPT: S ORDERED: HE/4, Gross/Micro L4/2 ORDERED: HE/4, Gross/Micro L4/2 Pathological Diagnosis A. Colon, biopsies: ? No active colitis, features of microscopic (lymphocytic) colitis, collagenous colitis or other diagnostic abnormalities. B. Rectal polyps, biopsies: ? Hyperplastic polyps with focal mucosal erosion, inflammation, mucosal vascular telangiectasia and mucosal vascular thrombi. ? Adenomatous epithelium not identified. Gross Description A. Received in formalin, labeled with the patient's name, date of and random colon BX are 2 escobar mucosal tissue fragments measuring 0.6 x 0.2 x 0.1 cm and 0.4 x 0.2 x 0.1 cm, entirely submitted in A1. B. Received in formalin, labeled with the patient's name, date of and rectal polyp are 3 escobar polypoid tissue fragments ranging from 0.3 x 0.2 x 0.1 cm to 0.2 x 0.1 x 0.1 cm, entirely submitted in B1. Clinical history: Loose stools. Rule out microscopic colitis -------- Specimen: [id number] Received: 10/26/23 Status: ANSHUL Zarate Num: [id number] Spec Type: Surgical Subm Dr: Colleen Ochoa MD Tissues: A Colon Biopsy (RANDOM COLON BX) B Colon Biopsy (RECTAL POLYPS) Procedures: HE/4, Gross/Micro L4/2 -------- Patient: Valentín Buckner [id number] (Continued) -------- Specimen: [id number] Received: 10/26/23 (Continued) Signed (signature on file) Kkia Jade MD 10/27/231126 -------- Specimen: [id number] Received: 10/26/23 Status: ANSHUL Zarate Num: [id number] Spec Type: Surgical Subm Dr: Colleen Ochoa MD Tissues: A Colon Biopsy (RANDOM COLON BX) B Colon Biopsy (RECTAL POLYPS) Procedures: MARCELA/Silver, Gross/Micro L4/2 -------- Patient: Valentín Buckner [id number] (Continued) -------- Specimen: [id number] Received: 10/26/23 (Continued) CPT Codes 24353t0 -------- -------- Specimen: [id number] Received: 10/26/23 Status: ANSHUL Zarate Num: [id number] Spec Type: Surgical Subm Dr: Colleen Ochoa MD Tissues: A Colon Biopsy (RANDOM COLON BX) B Colon Biopsy (RECTAL POLYPS) Procedures: HE/Silver, Gross/Micro L4/2 -------- Patient: Valentín Buckner [id number] (Continued) -------- Signed (signature on file) Kika Jade MD 10/27/23 1127 Normal [facility] Elastase.pancreatic [Mass/ma ss] in Stoolon 10-20-2023 Elastase.pancreatic (Stl) [Mass/Mass] [address] >200 [facility] Comment on above: Result Units: ug Marissa st./g Severe Pancreatic Insufficiency: <100 Moderate Pancreatic Insufficiency: 100 - 200 Normal: >200Performed at: - [facility] [id number] Director: Christophe Matthew MD, Phone: [phone] HIV 1 and HIV-2 antibody ass ay with HIV-1 p24 antigen detectionon 10-20-2023 HIV 1+2 Ab+HIV1 p24 Ag IA Ql Non-Reactive Non Reactive [facility] Comment on above: HIV NegativeHIV-1/HI V-2 antibodies and HIV-1 p24 antigen were NOTdetected. There is no laboratory evidence of HIV infection.Performed at: [place] [facility] [address] [id number] Director: Terell Silva PhD, Phone: [phone] IgA [Mass/volume] in Serum o r Plasmaon 10-20-2023 IgA [Mass/Vol] 150 mg/dL 61-437 [facility] Comment on above: Performed at: [place] [facility] [address] [id number] Director: Terell Silva PhD, Phone: [phone] Laboratory - Chemistry and C hemistry - challengeon 10-20-2023 TSH Qn 1.511 m[IU]/L 0.358-3.740 [facility] - Hematology and Cell countson 10-20-2023 ESR (Bld) [Velocity] 12 mm/h <=20 [facility] No Panel Informationon 10-19 C-Reactive Protein, Quantitative <0.50 mg/dL <=0.50 [facility] Endomysial IgA Antibody Negative Negative F [facility] Clostridium difficile (PCR)(LAB) Negative NEGATIVE [facility] Miscellaneous Test Comment See comment [facility] Comment on above: Specimen Source: ST - Stool - Stool - 700.100 Ova & Parasite Result [address] [facility] Comment on above: No ova, cysts, or pa rasites seen.One negative specimen does not rule out the possibility ofa parasitic infection.Performed at: - [facility] [id number] Director: Terell Silva PhD, Phone: [phone] Ova and Parasites (LAB) Final report . [facility] Comment on above: These results were o btained using wet preparation(s) andtrichrome stained smear. This test does not include testingfor Cryptosporidium parvum, Cyclospora, or Microsporidia. Stool Calprotectin 102 ug/g 0-120 [facility] Comment on above: Concentration Interp retation Follow-Up< 5 - 50 ug/g Normal None>50 -120 ug/g Borderline Re-evaluate in 4-6 weeks >120 ug/g Abnormal Repeat as clinically indicatedPerformed at: - [facility] [id number] Director: Christophe Matthew MD, Phone: [phone] Stool Campylobacter Culture Res [address] [facility] Comment on above: [facility], No Panel InformationOrdered By: Colleen Ochoa on 10-20-2023 E coli Shiga Toxin EIA [facility] Salmonella/Shigella Screen [facility] Serum gliadin peptide IgA an tibody assay (units/volume)on 10-20-2023 Gliadin peptide IgA Qn (S) 3 units 0-19 [facility] Comment on above: Negative 0 - 19 Weak Positive 20 - 30 Moderate to Strong Positive >30 Serum gliadin peptide IgG an tibody assay (units/volume)on 10-20-2023 Gliadin peptide IgG Qn (S) 2 units 0-19 [facility] Comment on above: Negative 0 - 19 Weak Positive 20 - 30 Moderate to Strong Positive >30 Serum tissue transglutaminas e (tTG) IgA antibody assay (units/volume)on 10-20-2023 tTG IgA Qn (S) <2 U/mL 0-3 [facility] Comment on above: Negative 0 - 3 Weak Positive 4 - 10 Positive >10 Tissue Transglutaminase (tTG) has been identified as the endomysial antigen. Studies have demonstr- ated that endomysial IgA antibodies have over 99% specificity for gluten sensitive enteropathy. Serum tissue transglutaminas e (tTG) IgG antibody assay (units/volume)on 10-20-2023 tTG IgG Qn (S) 3 U/mL 0-5 [facility] Comment on above: Negative 0 - 5 Weak Positive 6 - 9 Positive >9 Albumin [Mass/volume] in Ser um or Plasmaon 2023 Albumin [Mass/Vol] 4.0 g/dL 2.9-4.4 [facility] Basophils Auto (Bld) [#/Vol] on 2023 Basophils (Bld) [#/Vol] 0.0 10 3/uL 0.0-0.1 [facility] Basophils/100 WBC Auto (Bld) on 2023 Basophils/100 WBC (Bld) 0.4 % 0.2-2.0 [facility] Eosinophils/100 WBC Auto (Bl d)on 2023 Eosinophils/100 WBC (Bld) 2.9 % 0.9-7.0 [facility] Erythrocyte distribution wid th Auto (RBC) [Ratio]on 2023 Erythrocyte distribution width (RBC) [Ratio] 22.1 % 11.0-15.0 [facility] Hematocrit Auto (Bld) [Volum e fraction]on 2023 Hematocrit (Bld) [Volume fraction] 43.4 % 42.0-54.0 [facility] Hemoglobin [Mass/volume] in Bloodon 2023 Hemoglobin (Bld) [Mass/Vol] 13.1 g/dL 14.0-18.0 [facility] IgA [Mass/volume] in Serum o r Plasmaon 2023 IgA [Mass/Vol] 151 mg/dL 61-437 [facility] IgG [Mass/volume] in Serum o r Plasmaon 2023 IgG [Mass/Vol] 911 mg/dL 603-1613 [facility] IgM [Mass/volume] in Serum o r Plasmaon 2023 IgM [Mass/Vol] 53 mg/dL 15-143 [facility] Iron binding capacity [Mass/ volume] in Serum or Plasmaon 2023 Iron binding capacity [Mass/Vol] 411.0 ug/dL 250.0-450.0 [facility] Iron saturation [Mass Fracti on] in Serum or Plasmaon 2023 Iron saturation [Mass fraction] 11.2 % [facility] - Chemistry and C hemistry - challengeon 2023 Ferritin [Mass/Vol] 13.0 ng/mL 26.0-388.0 [facility] Iron [Mass/Vol] 46.0 ug/dL 65.0-175.0 [facility] - Hematology and Cell countson 2023 Immature granulocytes/100 WBC (Bld) 0.1 % 0.0-0.5 [facility] Leukocytes [#/volume] correc augustine for nucleated erythrocytes in Blood by Automated counon 2023 WBC corrected for nucl RBC Auto (Bld) [#/Vol] 8.0 10 3/uL 4.0-11.0 [facility] Lymphocytes Auto (Bld) [#/Vo l]on 2023 Lymphocytes (Bld) [#/Vol] 2.2 10 3/uL 1.2-3.8 [facility] Lymphocytes/100 WBC Auto (Bl d)on 2023 Lymphocytes/100 WBC (Bld) 27.5 % 20.5-60.0 [facility] MCH Auto (RBC) [Entitic mass ]on 2023 MCH (RBC) [Entitic mass] 25.0 pg 25.9-34.0 [facility] MCHC Auto (RBC) [Mass/Vol]on 2023 MCHC (RBC) [Mass/Vol] 30.2 g/dL 29.9-35.2 [facility] MCV Auto (RBC) [Entitic vol] on 2023 MCV (RBC) [Entitic vol] 83.0 fL 80.0-94.[address] [facility] Monocytes Auto (Bld) [#/Vol] on 2023 Monocytes (Bld) [#/Vol] 1.0 10 3/uL 0.3-0.8 [facility] Monocytes/100 WBC Auto (Bld) on 2023 Monocytes/100 WBC (Bld) 12.1 % 1.7-12.[address] [facility] Neutrophils Auto (Bld) [#/Vo l]on 2023 Neutrophils (Bld) [#/Vol] 4.5 10 3/uL 1.4-6.5 [facility] Neutrophils/100 WBC Auto (Bl d)on 2023 Neutrophils/100 WBC (Bld) 57.0 % 43.0-75.0 [facility] No Panel Informationon 10-12 Eosinophils # (Auto) 0.2 10 3/uL 0.0-0.7 [facility] Immature Granulocyte # (Auto) 0.01 10 3/uL 0.00-0.03 [facility] Protein Electrophoresis M-Johnnie Not Observed g/dL Not Observed [facility] Protein Electrophoresis Note Comment . [facility] Comment on above: Protein electrophore sis scan will follow via computer,mail, or lead enterprise architect delivery.Performed at: [address] [id number] Director: Terell Silva PhD, Phone: [phone] Platelet mean volume Auto (B ld) [Entitic vol]on 2023 Platelet mean volume (Bld) [Entitic vol] 10.1 fL 9.5-13.5 [facility] Platelets Auto (Bld) [#/Vol] on 2023 Platelets (Bld) [#/Vol] 236 10 3/uL 150-450 [facility] Protein [Mass/volume] in Ser um or Plasmaon 2023 Protein [Mass/Vol] 6.8 g/dL 6.0-8.5 [facility] RBC Auto (Bld) [#/Vol]on RBC (Bld) [#/Vol] 5.23 10 6/uL 4.70-6.10 [facility] Serum globulin measurement ( mass/volume)on 2023 Globulin (S) [Mass/Vol] 2.8 g/dL 2.2-3.9 [facility] Serum or plasma albumin/glob ulin mass ratioon 2023 Albumin/Globulin [Mass ratio] 1.5 {ratio} 0.7-1.7 [facility] Serum or plasma alpha 1 glob ulin measurement by electrophoresis (mass/volume)on 2023 Alpha 1 globulin Elph [Mass/Vol] 0.3 g/dL 0.0-0.4 [facility] Serum or plasma alpha 2 glob ulin measurement by electrophoresis (mass/volume)on 2023 Alpha 2 globulin Elph [Mass/Vol] 0.7 g/dL 0.4-1.0 [facility] Serum or plasma beta globuli n measurement by electrophoresis (mass/volume)on 2023 Beta globulin Elph [Mass/Vol] 1.0 g/dL 0.7-1.3 [facility] Serum or plasma gamma globul in measurement by electrophoresis (mass/volume)on 2023 Gamma globulin Elph [Mass/Vol] 0.8 g/dL 0.4-1.8 [facility] Serum or plasma immunoelectr ophoresis interpretationon 2023 Interpretation IEP [Interp] Comment . [facility] Comment on above: No monoclonality det ected. Aspartate Amino Transferaseo n 08-29-2023 AST [Catalytic activity/Vol] 15 U/L Normal 13-39 [facility] Comment on above: Performed By: #### B MP, TSH3, AST #### [address] Aspartate aminotransferase [ Enzymatic activity/volume] in Serum or PlasmaOrdered By: Florence Aden on 08-29-2023 AST [Catalytic activity/Vol] 15 U/L 13-39 [facility] Basic Metabolic Panelon 03-0 Anion gap [Moles/Vol] 10.5 mmol/L Normal 6.0-15.0 e [facility] Comment on above: Performed By: #### B CONRADO, TSH3, AST #### [facility] [address] [place] [address] [place] Calcium [Mass/Vol] 8.7 mg/dL Normal 8.6-10.3 [facility] Comment on above: Performed By: #### B CONRADO, TSH3, AST #### [facility] [address] [place] [address] [place] Chloride [Moles/Vol] 108 mmol/L High 98-107 [facility] Comment on above: Performed By: #### B CONRADO, TSH3, AST #### [facility] [address] [place] [address] [place] CO2 [Moles/Vol] 26.9 mmol/L Normal 21.0-31.0 [facility] Comment on above: Performed By: #### B CONRADO, TSH3, AST #### [facility] [address] [place] [address] [place] Creatinine [Mass/Vol] 1.11 mg/dL Normal 0.70-1.30 [facility] Comment on above: Performed By: #### B CONRADO, TSH3, AST #### [facility] [address] [place] [id number] [place] GFR/1.73 sq M.predicted MDRD (S/P/Bld) [Vol rate/Area] mL/min/{1.73_m2} Normal [facility] Comment on above: Performed By: #### B CONRADO, TSH3, AST #### [facility] [address] [place] [address] [place] Glucose [Mass/Vol] 95 mg/dL Normal 70-100 [facility] Comment on above: Result Comment: [place] Glucose Reference Range is dependent on time and content of last meal. Glucose of more than 200 mg/dL in a nonstressed, ambulatory subject supports the diagnosis of Diabetes Mellitus. ADA recommended reference range Performed By: #### B MP, TSH3, AST #### [facility] [address] [place] [id number] [place] Potassium [Moles/Vol] 4.4 mmol/L Normal 3.5-5.1 [facility] Comment on above: Performed By: #### B CONRADO, TSH3, AST #### [facility] [address] [place] [id number] [place] Sodium [Moles/Vol] 141 mmol/L Normal 136-145 [facility] Comment on above: Performed By: #### B CONRADO, TSH3, AST #### [facility] [address] [place] [address] [place] Urea nitrogen [Mass/Vol] 22 mg/dL Normal 7-25 [facility] Comment on above: Performed By: #### B CONRADO, TSH3, AST #### [facility] [address] [place] [phone] [place] Calcium [Mass/volume] in Ser um or PlasmaOrdered By: Florence Aden on 08-29-2023 Calcium [Mass/Vol] 8.7 mg/dL 8.6-10.3 [facility] Carbon dioxide, total [Moles /volume] in Serum or PlasmaOrdered By: Florence Aden on 08-29-2023 CO2 [Moles/Vol] 26.9 mmol/L 21.0-31.0 [facility] Chloride [Moles/volume] in S ky or PlasmaOrdered By: Florence Aden on 08-29-2023 Chloride [Moles/Vol] 108 mmol/L 98-107 [facility] Creatinine [Mass/volume] in Serum or PlasmaOrdered By: Florence Aden on 08-29-2023 Creatinine [Mass/Vol] 1.11 mg/dL 0.70-1.30 [facility] Glucose [Mass/volume] in Ser um or PlasmaOrdered By: Florence Aden on 08-29-2023 Glucose [Mass/Vol] 95 mg/dL 70-100 [facility] Comment on above: ADA recommended refe rence rangeRandom Glucose Reference Range is dependent on time and content of last meal. Glucose of more than 200 mg/dL in a nonstressed, ambulatory subject supports the diagnosis of Diabetes Mellitus. No Panel InformationOrdered By: Florence Aden on 08-29-2023 Estimated GFR (CKD-EPI) > 60.0 mL/Min [facility] [facility] Creatinine Clearance (Chem N/A [facility] Potassium [Moles/volume] in Serum or PlasmaOrdered By: Florence Aden on 08-29-2023 Potassium [Moles/Vol] 4.4 mmol/L 3.5-5.1 [facility] Serum or plasma anion gap de terminationOrdered By: Florence Aden on 08-29-2023 Anion gap [Moles/Vol] 10.5 mmol/L 6.0-15.0 [facility] Sodium [Moles/volume] in Ser um or PlasmaOrdered By: Florence Aden on 08-29-2023 Sodium [Moles/Vol] 141 mmol/L 136-145 [facility] Thyroid Stimulating Hormoneo n 08-29-2023 TSH Qn 2.16 m[IU]/L Normal 0.45-5.33 [facility] Comment on above: Result Comment: PERF ORMED BY: [place] [address] PATHOLOGIST CABIN SUPERVISOR GABINO ARCOS M.D. Performed By: #### B MP, TSH3, AST #### [address] Thyrotropin [Units/volume] i n Serum or PlasmaOrdered By: Florence Aden on 08-29-2023 TSH Qn 2.16 m[IU]/L 0.45-5.33 [facility] Urea nitrogen [Mass/volume] in Serum or PlasmaOrdered By: Florence Aden on 08-29-2023 Urea nitrogen [Mass/Vol] 22 mg/dL 7-25 [facility] XR chest 2V*on 08-29-2023 XR chest 2V* [facility] [place] [address] XRay Report Signed Patient: Valentín Buckner MR#: [id number] : 1940 Acct:[id number] Age/Sex: 82 / M ADM Date: 08/29/23 Loc: RT Room: Type: [facility] Attending Dr: Alfred Baron DO Copies to: Alfred Baron DO Ordering Provider: Alfred Baron DO Date of Service: 08/29/23 XR/XR chest 2V*: I48.0,Z79.899 PA AND LATERAL CHEST: CLINICAL HISTORY: High risk medication for atrial fibrillation COMPARISON: 03/21/2023 There is mild hyperinflation. A similar nodular asymmetry is present at the right upper lung, probably granuloma. There is no developing consolidation, effusion or pneumothorax. The cardiac, hilar and mediastinal silhouettes are within normal limits. There is no vascular congestion. The visualized bony thorax is intact. Degenerative change is present at the spine. XR/XR chest 2V* IMPRESSION: NO ACUTE CARDIOPULMONARY ABNORMALITY. Impression dictated by: Erica Landry M.D.08/29/2023 3:43 PM Dictation Location: [place] [address] Transcribed By: [facility] 08/29/23 1543 Dictated By: Erica Landry MD 08/29/23 1539 Signed By: 08/29/23 1543 Normal [facility] ECG 12 [place] 07-25-2023 Sinus bradycardia, first-degree AV block [facility] Work Phone: [facility] Work Phone: [facility] 04-21-2023 L - -------- Specimen: [id number] Received: 04/21/23 Status: ANSHUL Siddiqimaranda Num: [id number] Spec Type: Surgical Subm Dr: Markell Garza MD Tissues: A Duodenum - Biopsy (DUODENUM BX) B STOMACH FOR HP (ANTRAL HP) C Duodenum - Biopsy (DESCENDING DUODENUM) D Esophagus Biopsy (ESOPHAGEAL BX) Procedures: HE/8, Gross/Micro L4/4, H PYLORI, IHC First AB -------- Age/ Patient Sex Location Account Attending Physician -------- Valentín Buckner /[facility] [id number] Markell Garza MD -------- SPEC NUM: [id number] RECD: 04/21/23 STATUS: ANSHUL ZARATE NUM: [id number] [place]STA: 04/21/[address] [facility] [address]: Markell Garza MD ENTERED: 04/21/23 [facility] DR: LEONCIO TYPE: Surgical DEPT: S ORDERED: HE/8, Gross/Micro L4/4, H PYLORI, IHC First AB ORDERED: HE/8, Gross/Micro L4/4, H PYLORI, IHC First AB Pathological Diagnosis A. Ulcerative duodenitis biopsy: - Duodenal mucosa with mild peptic congestion but without any abnormal stromal chronic inflammation, active erosion, or any obvious features of celiac sprue observed B. Gastric antral biopsy: - Antral mucosa with mild chronic reactive gastropathy, including minor congestion and minor insignificant stromal chronic inflammation, otherwise also without intestinal metaplasia, erosion, or any significant stromal chronic inflammation observed - H. pylori immunostain with appropriate control is also negative for identified Helicobacter organisms C. Descending duodenum biopsy: - Duodenal mucosa with adequate presence of villous structures and only mild insignificant stromal chronic inflammation observed. - There are also only occasional and overall probably still insignificant intraepithelial lymphocytosis identifiable, therefore also no obvious features of celiac sprue observed D. Esophageal biopsy: - Squamous mucosa with mild squamous acanthosis and only occasional lymphocytic -------- Specimen: [id number] Received: 04/21/23 Status: ANSHUL Siddiqimaranda Num: [id number] Spec Type: Surgical Subm Dr: Markell Garza MD Tissues: A Duodenum - Biopsy (DUODENUM BX) B STOMACH FOR HP (ANTRAL HP) C Duodenum - Biopsy (DESCENDING DUODENUM) D Esophagus Biopsy (ESOPHAGEAL BX) Procedures: HE/8, Gross/Micro L4/4, H PYLORI, IHC First AB -------- Patient: Valentín Buckner [id number] (Continued) -------- Specimen: [id number] Received: 04/21/23 (Continued) Pathological Diagnosis (Continued) Signed (signature on file) Martha Sevilla MD 04/29/23 0933 -------- Specimen: [id number] Received: 04/21/23 Status: ANSHUL Zarate Num: [id number] Spec Type: Surgical Subm Dr: Markell Garza MD Tissues: A Duodenum - Biopsy (DUODENUM BX) B STOMACH FOR HP (ANTRAL HP) C Duodenum - Biopsy (DESCENDING DUODENUM) D Esophagus Biopsy (ESOPHAGEAL BX) Procedures: HE/8, Gross/Micro L4/4, H PYLORI, IHC First AB -------- Patient: Valentín Buckner [id number] (Continued) -------- Specimen: [id number] Received: 04/21/23 (Continued) Pathological Diagnosis (Continued) exocytosis noted, otherwise also without eosinophilic exocytosis, or any other significant histopathological changes observed Clinical Information GERD, change in bowel habits, rule out H. pylori IHC, rule out sprue, rule out erosive esophagitis Gross Description A. Received in formalin labeled with the patient's name, date of and ulcerative duodenitis biopsy are two escobar tissues measuring 0.1 cm and 0.3 x 0.2 x 0.1 cm. Entirely submitted in one cassette labeled A1. B. Received in formalin labeled with the patient's name, date of and antral biopsy rule out H. pylori for IHC is one escobar tissue measuring 0.4 x 0.2 x 0.2 cm. Entirely submitted in one cassette labeled B1. C. Received in formalin labeled with the patient's name, date of and descending duodenum biopsy rule out sprue is one escobar tissue measuring 0.3 cm. Entirely submitted in one cassette labeled C1. D. Received in formalin labeled with the patient's name, date of and esophageal bio (more content not included)... Normal [facility] Office Visit (Cardiology)on 03-23-2023 Follow-up visit Diagnoses/Problems Assessed Hypertension, benign (401.1) (I10) Borderline in office today Overweight with body mass index (BMI) of 28 to 28.9 in adult (278.02,V85.24) (E66.3,Z68.28) Reviewed the merits of healthy lifestyle choices on overall cardiovascular health. Paroxysmal atrial fibrillation (427.31) (I48.0) Identified August 2021 Holter Amiodarone initiated September 2021. EKG in office sinus bradycardia with first-degree AV block, QTc 437 Anticoagulated (V58.61) (Z79.01) CHADS VASc 4 on full dose Eliquis (81, creatinine 1.2, weight 197 pounds) Denies bleeding diatheses High risk medication use (V58.69) (Z79.899) Amiodarone start date September 2021 Surveillance testing completed Feb 2023 Mixed hyperlipidemia (272.2) (E78.2) High intensity statin October 2022 HDL 46, LDL 51 CAD (coronary artery disease) (414.00) (I25.10) Multivessel PCI at outside facility May 2021 NSTEMI admit at [facility] May 2021 cardiac cath: pLAD patent stent pCX patent stent oOM2 50-70% RCA patent stent Current daily activity greater than 4 METS without concerning symptoms Normal cardiac ejection fraction May 2021 cardiac cath LVEF 60% Bradycardia (427.89) (R00.1) August 2021 Holter average HR 64 on no AVN agents Likely element of SSS (although PAF rates > 100) November 2022 [facility] nocturnal bradycardia, no high-grade heart block. Orders Overweight with body mass index (BMI) of 28 to 28.9 in adult Healthy Weight Tips; Status:Complete; Done: [id number] Patient Instructions Please bring all medicines, vitamins, and herbal supplements with you when you come to the office. Prescriptions will not be filled unless you are compliant with your follow up appointments or have a follow up appointment scheduled as per instruction of your physician. Refills should be requested at the time of your visit. PLAN: Through informed decision making process incorporating patients unique circumstances, the following treatment plan will be initiated: 1. Prescription drug management of cardiovascular medication for efficacy, adherence to treatment, side effect assessment and polypharmacy. Current treatment clinically warranted and to continue without modifications. 2. Return for follow-up; in the interim, contact the office if new symptoms arise. Dr. Baron as scheduled Chief Complaint Blood pressure f/u: 'doing pretty good' VALENTÍN BUCKNER is being seen for a 2 month follow-up of hypertension. Patient presents to the office ambulatory with steady gait. Last evaluated in clinic by myself December 2022. At that time, added amlodipine 2.5 mg daily to medical regimen. Patient has been compliant, denying any type of side effects. Patient presents to the office today overall reporting doing pretty good . He remains aerobically active and was splitting firewood over the weekend. He denies any type of exertional complaints. There is no dizziness or lightheadedness. Blood pressure in the office this is optimal today. Otherwise, patient denies any change in overall cardiovascular status since last evaluation in clinic. History of Present Illness The patient presents for follow-up of essential hypertension. The patient states he has been doing well with his blood pressure control since the last visit. Comorbid Illnesses: coronary artery disease. Symptoms: denies impaired vision, denies dyspnea, denies chest pain, denies intermittent leg claudication and denies lower extremity edema. Associated symptoms include no headache. Home monitoring: The patient checks his blood pressure regularly. Blood pressure control has been good. Medications: the patient is adherent with his medication regimen. He denies medication side effects. Surgical History Problems History of Back surgery History of Complete colonoscopy History of Percutaneous transluminal coronary angioplasty History of Prostate surgery History of Radiofrequency ablation Current Meds Medication NameInstruction Amiodarone HCl - 200 MG Oral TabletTAKE 0.5 TABLET tue,,Tuesday amLODIPine Besylate 2.5 MG Oral TabletTAKE 1 TABLET DAILY DIRECTED. Aspirin 81 MG Oral Tablet Delayed ReleaseTAKE 1 TABLET Ngu-The-Ukvfze Atorvastatin Calcium 40 MG Oral TabletTAKE 1 TABLET BY MOUTH EVERYDAY AT BEDTIME Eliquis 5 MG Oral TabletTake 1 tablet twice daily Isosorbide Mononitrate ER 30 MG Oral Tablet Extended Release 24 HourTAKE 1 TABLET ONCE DAILY. Loratadine 10 MG Oral CapsuleTAKE 1 CAPSULE Daily prn Nitroglycerin 0.4 MG Sublingual Tablet SublingualDISSOLVE 1 TABLET UNDER THE TONGUE NEEDED FOR CHEST PAIN. Pantoprazole Sodium 40 MG Oral Tablet Delayed ReleaseTAKE 1 TABLET DAILY. as needed Vitamin D3 50 MCG (1999) Oral CapsuleTAKE 1 CAPSULE Daily Zinc 50 MG Oral TabletTAKE 1 TABLET DAILY. Patient did not bring medication list or bottles. Updated verbally with patient Allergies Medication Plavix Allergy; Rash; Recorded By: Sarah King; 07/01/2021 11:55:50 AM Social (more content not included)... Normal [facility] Aspartate Amino Transferaseo n 03-21-2023 AST [Catalytic activity/Vol] 13 U/L Normal -39 [facility] Comment on above: Performed By: #### T SH3, BMP, AST #### [address] Aspartate aminotransferase [ Enzymatic activity/volume] in Serum or PlasmaOrdered By: Alfred Baron on 03-21-2023 AST [Catalytic activity/Vol] 13 U/L 13-39 [facility] Basic Metabolic Panelon 02-26 Anion gap [Moles/Vol] 7.8 mmol/L Normal 6.0-15.0 [facility] Comment on above: Performed By: #### T SH3, BMP, AST #### [address] Calcium [Mass/Vol] 8.5 mg/dL Low 8.6-10.3 [facility] Comment on above: Performed By: #### T SH3, BMP, AST #### [facility] [address] [place] [address] [place] Chloride [Moles/Vol] 107 mmol/L Normal 98-107 [facility] Comment on above: Performed By: #### T EM BMP, AST #### [facility] [address] [place] [address] [place] CO2 [Moles/Vol] 29.7 mmol/L Normal 21.0-31.0 [facility] Comment on above: Performed By: #### T EM BMP, AST #### [facility] [address] [place] [address] [place] Creatinine [Mass/Vol] 0.97 mg/dL Normal 0.70-1.30 [facility] Comment on above: Performed By: #### T EM BMP, AST #### [place] [address] [place] GFR/1.73 sq M.predicted MDRD (S/P/Bld) [Vol rate/Area] mL/min/{1.73_m2} Normal [facility] Comment on above: Performed By: #### T SYDNI STRICKLAND, AST #### [place] [address] [place] Glucose [Mass/Vol] 83 mg/dL Normal 70-100 [facility] Comment on above: Result Comment: [place] Glucose Reference Range is dependent on time and content of last meal. Glucose of more than 200 mg/dL in a nonstressed, ambulatory subject supports the diagnosis of Diabetes Mellitus. ADA recommended reference range Performed By: #### T EM BMP, AST #### [facility] [address] [place] [address] [place] Potassium [Moles/Vol] 4.5 mmol/L Normal 3.5-5.1 [facility] Comment on above: Performed By: #### T EM BMP, AST #### [facility] [address] [place] [address] [place] Sodium [Moles/Vol] 140 mmol/L Normal 136-145 [facility] Comment on above: Performed By: #### T EM BMP, AST #### [address] [place] [address] [place] Urea nitrogen [Mass/Vol] 18 mg/dL Normal 7-25 [facility] Comment on above: Performed By: #### T SH3, BMP, AST #### [facility] [address] [place] [id number] [facility] Calcium [Mass/volume] in Ser um or PlasmaOrdered By: Alfred Baron on 03-21-2023 Calcium [Mass/Vol] 8.5 mg/dL 8.6-10.3 [facility] Carbon dioxide, total [Moles /volume] in Serum or PlasmaOrdered By: Alfred Baron on 03-21-2023 CO2 [Moles/Vol] 29.7 mmol/L 21.0-31.0 [facility] Chloride [Moles/volume] in [place] or PlasmaOrdered By: Alfred Baron on 03-21-2023 Chloride [Moles/Vol] 107 mmol/L 98-107 [facility] Creatinine [Mass/volume] in Serum or PlasmaOrdered By: Alfred Baron on 03-21-2023 Creatinine [Mass/Vol] 0.97 mg/dL 0.70-1.30 [facility] Glucose [Mass/volume] in Ser um or PlasmaOrdered By: Alfred Baron on 03-21-2023 Glucose [Mass/Vol] 83 mg/dL 70-100 [facility] Comment on above: ADA recommended refe rence rangeRandom Glucose Reference Range is dependent on time and content of last meal. Glucose of more than 200 mg/dL in a nonstressed, ambulatory subject supports the diagnosis of Diabetes Mellitus. No Panel InformationOrdered By: Alfred Baron on 03-21-2023 Estimated GFR (CKD-EPI) > 60.0 mL/Min [facility] Creatinine Clearance (Chem N/A [facility] No Panel Informationon 03-21 > 60.0 Normal [facility] [address] DO Work Phone: 7.8\S\7.8 Normal 6.0-15.0 [facility] [address] DO Work Phone: 8.5\S\8.5 below low threshold 8.6-10.3 [facility] Michael barrios 250 DO Work Phone: 29.7\S\29.7 Normal 21.0-31.0 [facility] Michael barrios 250 DO Work Phone: 107\S\107 Normal 98-107 [facility] Michael barrios 250 DO Work Phone: 4.5\S\4.5 Normal 3.5-5.1 [facility] Michael barrios 250 DO Work Phone: 140\S\140 Normal 136-145 [facility] Michael Crandall DO Work Phone: 0.97\S\0.97 Normal 0.70-1.30 [facility] Michael barrios 250 DO Work Phone: 18\S\18 Normal 7-25 [facility] Michael barrios 250 DO Work Phone: 83\S\83 Normal 70-100 [facility] Michael barrios 250 DO Work Phone: Comment on above: Random Glucose Refer ence Range is dependent on time and content of last meal. Glucose of more than 200 mg/dL in a nonstressed, ambulatory subject supports the diagnosis of Diabetes Mellitus. ADA recommended reference range 13\S\13 Normal 13-39 [facility] Michael barrios 250 DO Work Phone: 1.36\S\1.36 Normal 0.45-5.33 [facility] Michael barrios 250 DO Work Phone: Comment on above: PERFORMED BY:[place] [id number] [place] [id number] MEDICAL DIRECTORGABINO ARCOS M.D. Potassium [Moles/volume] in Serum or PlasmaOrdered By: Alfred Baron on 03-21-2023 Potassium [Moles/Vol] 4.5 mmol/L 3.5-5.1 [facility] Radiologyon 03-21-2023 XR Chest 2 Views Normal [facility] [place] [address] DO Work Phone: Serum or plasma anion gap de terminationOrdered By: Alfred Baron on 03-21-2023 Anion gap [Moles/Vol] 7.8 mmol/L 6.0-15.0 [facility] Sodium [Moles/volume] in Ser um or PlasmaOrdered By: Alfred Baron on 03-21-2023 Sodium [Moles/Vol] 140 mmol/L 136-145 [facility] Thyroid Stimulating Hormoneo n 03-21-2023 TSH Qn 1.36 m[IU]/L Normal 0.45-5.33 [facility] Comment on above: Result Comment: PERF ORMED BY: [place] [address] PATHOLOGIST CABIN SUPERVISOR GABINO ARCOS M.D. Performed By: #### T SH3, BMP, AST #### [address] Thyrotropin [Units/volume] i n Serum or PlasmaOrdered By: Alfred Baron on 03-21-2023 TSH Qn 1.36 m[IU]/L 0.45-5.33 [facility] Urea nitrogen [Mass/volume] in Serum or PlasmaOrdered By: Alfred Baron on 03-21-2023 Urea nitrogen [Mass/Vol] 18 mg/dL 01-18 [facility] XR chest 2V*on 03-21-2023 XR chest 2V* [facility] Main [place] [address] [place] [address] XRay Report Signed Patient: Valentín Buckner MR#: [id number] : 1940 Acct:[id number] Age/Sex: 82 / M ADM Date: 03/21/23 Loc: RT [facility]: [facility]: Alfred Baron DO Copies to: Alfred Baron DO Ordering Provider: Alfred Baron DO Date of Service: 03/21/23 XR/XR chest 2V*: I48.0, Z79.899 Chest 2 views CLINICAL HISTORY: High risk medication use. COMPARISON: Chest 10/28/2022 FINDINGS: Heart normal in size. Evidence old granulomatous disease. No consolidation pneumothorax pleural effusion or free air. XR/XR chest 2V* IMPRESSION: NO ACUTE CARDIOPULMONARY ABNORMALITY. Impression dictated by: Alex Nixon Jr., D.OPam03/21/2023 3:22 PM Dictation Location: [facility] Transcribed By: [facility] 03/21/23 1522 Dictated By: Alex Nixon Jr, DO 03/21/23 152 Signed By: 03/21/23 152 Normal [facility] Office Visit (Cardiology)on 01-03-2023 Follow-up visit Diagnoses/Problems Assessed Bradycardia (427.89) (R00.1) August 2021 Holter average HR 64 on no AVN agents Likely element of SSS (although PAF rates > 100) November 2022 [facility] nocturnal bradycardia, no high-grade heart block. Paroxysmal atrial fibrillation (427.31) (I48.0) Identified August 2021 Holter Amiodarone initiated September 2021. EKG in office sinus bradycardia with first-degree AV block, QTc 416 Anticoagulated (V58.61) (Z79.01) CHADS VASc 4 on full dose Eliquis (81, creatinine 1.2, weight 197 pounds) Denies bleeding diatheses CAD (coronary artery disease) (414.00) (I25.10) Multivessel PCI at outside facility May 2021 NSTEMI admit at [facility] May 2021 cardiac cath: pLAD patent stent pCX patent stent oOM2 50-70% RCA patent stent Current daily activity greater than 4 METS without concerning symptoms Normal cardiac ejection fraction May 2021 cardiac cath LVEF 60% Hypertension, benign (401.1) (I10) Borderline in office today High risk medication use (V58.69) (Z79.899) Amiodarone start date September 2021 Surveillance testing completed September 2022 Mixed hyperlipidemia (272.2) (E78.2) High intensity statin October 2022 HDL 46, LDL 51 Overweight with body mass index (BMI) of 29 to 29.9 in adult (278.02,V85.25) (E66.3,Z68.29) Reviewed the merits of healthy lifestyle choices on overall cardiovascular health. Orders Hypertension, benign Start: amLODIPine Besylate 2.5 MG Oral Tablet; TAKE 1 TABLET DAILY DIRECTED Overweight with body mass index (BMI) of 29 to 29.9 in adult Healthy Weight Tips; Status:Complete; Done: [id number] Patient Instructions Please bring all medicines, vitamins, and herbal supplements with you when you come to the office. Prescriptions will not be filled unless you are compliant with your follow up appointments or have a follow up appointment scheduled as per instruction of your physician. Refills should be requested at the time of your visit. PLAN: Through informed decision making process incorporating patients unique circumstances, the following treatment plan will be initiated: 1. Prescription drug management of cardiovascular medication for efficacy, adherence to treatment, side effect assessment and polypharmacy. Current treatment clinically warranted and to continue without modifications. - Begin amlodipine 2.5mg daily 2. Return for follow-up; in the interim, contact the office if new symptoms arise. Dr. Baron as scheduled BP check in 2 months Chief Complaint Routine f/u: 'doing pretty good' VALENTÍN BUCKNER is being seen for a 1 month follow-up of atrial fibrillation and bradycardia. Patient presents to the office ambulatory with steady gait. Last evaluated in clinic by myself approximately 1 months ago. At that time, patient was extremely anxious regarding bradycardia and he completed a 14-day [employer]a [place]. Results reviewed including no evidence of high-grade heart block, nocturnal bradycardia and 1 brief atrial fibrillation episode -no indication for pacemaker. Patient continues to deny dizziness, lightheadedness, syncopal episodes, change in exercise capacity or functional tolerance -he remains aerobically active riding a bicycle approximately 4 times a week, walking 1 mile daily and playing golf for exercise. He has been educated to update office if starts to experience any type of dizziness, near syncope or significant change in overall functional status. During the brief episode of atrial fibrillation he was completely asymptomatic. He continues to maintain sinus bradycardia in the office today on amiodarone 100 mg 3 times weekly. Remains compliant with anticoagulation denies any bleeding diatheses. His blood pressure was slightly elevated at last visit, remains borderline in the office today. Discussed the importance of secondary prevention and will add low-dose Norvasc to medical regimen. Overall patient is pleased with current state of cardiovascular health. At this time there are no indications for additional cardiovascular testing or need for medication changes. History of Present Illness The patient states he has been generally doing well since the last visit. Comorbid Illnesses: hypertension and hyperlipidemia. Symptoms: denies chest pain at rest, denies exertional chest pain, denies dyspnea, stable fatigue, denies exercise intolerance, denies palpitations, denies edema, denies orthopnea, denies dizziness and denies orthostatic dizziness. Associated symptoms: no syncope. His symptoms do not limit his activities. Disease Monitoring: The patient has had a stable weight. Medications: the patient is adherent with his medication regimen. He denies medication side effects. Surgical History Problems History of Back surgery History of Complete colonoscopy History of Percutaneous transluminal coronary angioplasty History of Prostate surgery History of Radiofrequency ablation Current Meds Medication NameInstruction Amiodarone HCl - 200 (more content not included)... Normal Play With Pictures / HangPic Tobacco Screening.on 023 Fall risk assessment a) No falls within the last year -[facility] [place] [address] DO Work Phone: Tobacco use status CPHS b) No M [facility] [place] Work Phone: Cardiovasc Arrhythmia Result son 12-08-2022 Cardiovasc Arrhythmia Results Reason For Visit Event Monitor: VALENTÍN is here for the application of a 30 day event monitor in office., Diagnosis: bradycardia, afib Ordering Physician: Florence Mora NP Enrollment sent to: [employer] Monitor number [id number] applied. Holter monitor printed and placed on Dr. Rose Green MD desk to dictate. Procedure Patient was monitored between 12/08/2022 and 12/22/2022 for 14 days for history of bradycardia. During the 2 weeks of observation the patient had 1 episode of atrial fibrillation with a heart rate 111 bpm which was not symptomatic. The rest of the tracings revealed normal sinus rhythm with a heart rate that ranged between 37 bpm and 61 bpm. Patient did not report any symptoms while carrying the monitor Diagnosis/Problems Assessed Bradycardia (427.89) (R00.1) Paroxysmal atrial fibrillation (427.31) (I48.0) Future Appointments Date/TimeProviderSpec ialtySite 01/03/2023 11:00 Florence Sales, BRIM IRONER [id number] [facility] [address] [place] 250 DO 07/20/2023 10:00 [facility] Henness[facility]ardiology703 [facility] [place] [facility] DO Signatures Electronically signed by : Rose Green MD; Dec 28 2022 10:28PM EST (Author) Normal [employer] Office Visit (Cardiology)on 11-29-2022 Follow-up visit Diagnoses/Problems Assessed Paroxysmal atrial fibrillation (427.31) (I48.0) Identified August 2021 Holter Amiodarone initiated September 2021. EKG in office sinus bradycardia with first-degree AV block, QTc 430 Anticoagulated (V58.61) (Z79.01) CHADS VASc 4 on full dose Eliquis (81, creatinine 1.2, weight 197 pounds) Denies bleeding diatheses Bradycardia (427.89) (R00.1) August 2021 Holter average HR 64 on no AVN agents Likely element of SSS (although PAF rates > 100) CAD (coronary artery disease) (414.00) (I25.10) Multivessel PCI at outside facility May 2021 cardiac cath: pLAD patent stent pCX patent stent oOM2 50-70% RCA patent stent Current daily activity greater than 4 METS without concerning symptoms May [address] [facility] Intolerant to plavix and eliquis Daily activity >4 METs without concerning symptoms Normal cardiac ejection fraction May 2021 cardiac cath LVEF 60% Mixed hyperlipidemia (272.2) (E78.2) High intensity statin October 2022 HDL 46, LDL 51 Hypertension, benign (401.1) (I10) optimal in office Overweight with body mass index (BMI) of 29 to 29.9 in adult (278.02,V85.25) (E66.3,Z68.29) Reviewed the merits of healthy lifestyle choices on overall cardiovascular health. High risk medication use (V58.69) (Z79.899) Amiodarone start date September 2021 Surveillance testing completed September 2022 Orders Bradycardia, Paroxysmal atrial fibrillation IO Event Monitor 30 days; Status:Complete; Done: 29Nov2022 CAD (coronary artery disease) Start: Nitroglycerin 0.4 MG Sublingual Tablet Sublingual; DISSOLVE 1 TABLET UNDER THE TONGUE NEEDED FOR CHEST PAIN Overweight with body mass index (BMI) of 29 to 29.9 in adult Healthy Weight Tips; Status:Complete; Done: 29Nov2022 Patient Instructions Please bring all medicines, vitamins, and herbal supplements with you when you come to the office. Prescriptions will not be filled unless you are compliant with your follow up appointments or have a follow up appointment scheduled as per instruction of your physician. Refills should be requested at the time of your visit. PLAN: Through informed decision making process incorporating patients unique circumstances, the following treatment plan will be initiated: 1. Prescription drug management of cardiovascular medication for efficacy, adherence to treatment, side effect assessment and polypharmacy. Current treatment clinically warranted and to continue without modifications. 2. GARFIELD 14 days (PAF, bradycardia) 3. Return for follow-up; in the interim, contact the office if new symptoms arise. Dr. Baron as prior 4. Blood pressure check at time of GARFIELD Chief Complaint Hospital f/u: 'doing ok' VALENTÍN BUCKNER is being seen for follow-up of a hospitalization for dizziness. Patient presents to the office ambulatory steady gait, is accompanied by his . Last evaluated in clinic Dr. Baron June 2022. At that time dose of amiodarone reduced 100 mg daily. October [address] [facility] due to dizziness. Seen in consultation by . Both consultation and discharge summary document chronic atrial fibrillation with slow ventricular rate: Heart rate 50-55, lowest heart rate 47 with ambulatory rate in the 60s. EKG with sinus bradycardia with first-degree AV block. Dose of amiodarone was reduced to 100 mg 3 times weekly. His prior PAF heart rate greater than 100. Patient reports that [place] the day of admit [place], when he raised up he felt dizzy . He had significant anxiety and presented to the emergency department. He denies any additional episodes. He remains a very aerobically active 82-year-old he does yard work, rakes up leaves, rides a bicycle approximately 3 miles daily, goes golfing. His prior PCI symptoms were jaw aching and he denies any reoccurrence, no nitroglycerin usage. He denies any fatigability, no near syncope, no prior syncopal episode. No change in exercise capacity or functional tolerance. EKG in office maintaining sinus bradycardia with first-degree AV block. Once again discussed with patient and that this is inconsequential in the absence of symptoms. Reviewed concerns that on lower dose of amiodarone could have additional atrial fibrillation. We will proceed with 14-day Compa [employer]. At this time amiodarone has been reduced greater than 30 days. He otherwise continues to tolerate anticoagulation without any bleeding diatheses. Secondary prevention has been reviewed. History of Present Illness The patient states he has been generally doing well since the last visit. Comorbid Illnesses: hypertension and hyperlipidemia. Symptoms: denies chest pain at rest, denies exertional chest pain, denies dyspnea, stable fatigue, denies exercise intolerance, denies palpitations, denies edema, resolved dizziness and denies orthostatic dizziness. Associated symptoms: no syncope. Disease Monitoring: Surgical History Problems History of Back surgery History (more content not included)... Normal [employer] Pictures / Hang[employer] Tobacco Screening.on 023 Adult depression screening assessment No [facility] [employer] 250 DO Work Phone: Fall risk assessment a) No falls within the last year [facility] [employer] 250 DO Work Phone: Tobacco use status CPHS b) No M [facility] [employer] 250 DO Work Phone: Alanine aminotransferase [En zymatic activity/volume] in Serum or PlasmaOrdered By: Carlos Corbett on 10-28-2022 ALT [Catalytic activity/Vol] 16 U/L 7-52 [facility] Albumin [Mass/volume] in Ser um or Plasma by Bromocresol green (BCG) dye binding methoOrdered By: Carlos Corbett on 10-28-2022 Albumin BCG dye [Mass/Vol] 4.0 g/dL 3.5-5.7 [facility] Alkaline phosphatase [Enzyma tic activity/volume] in Serum or PlasmaOrdered By: Carlos Corbett on 10-28-2022 ALP [Catalytic activity/Vol] 66 U/L 34-104 [facility] Aspartate aminotransferase [ Enzymatic activity/volume] in Serum or PlasmaOrdered By: Carlos Corbett on 10-28-2022 AST [Catalytic activity/Vol] 17 U/L 13-39 [facility] Basophils Auto (Bld) [#/Vol] Ordered By: Carlos Corbett on 10-28-2022 Basophils (Bld) [#/Vol] 0.0 10*3/uL 0.0-0.2 [facility] Basophils/100 WBC Auto (Bld) Ordered By: Carlos Corbett on 10-28-2022 Basophils/100 WBC (Bld) 0.4 % . [facility] Bilirubin.total [Mass/volume ] in Serum or PlasmaOrdered By: Carlos Corbett on 10-28-2022 Bilirubin [Mass/Vol] 0.3 mg/dL 0.3-1.0 [facility] Calcium [Mass/volume] in Ser um or PlasmaOrdered By: Carlos Corbett on 10-28-2022 Calcium [Mass/Vol] 8.4 mg/dL 8.6-10.3 [facility] Carbon dioxide, total [Moles /volume] in Serum or PlasmaOrdered By: Carlos Corbett on 10-28-2022 CO2 [Moles/Vol] 26.2 mmol/L 21.0-31.0 [facility] Chloride [Moles/volume] in S ky or PlasmaOrdered By: Carlos Corbett on 10-28-2022 Chloride [Moles/Vol] 106 mmol/L 98-107 [facility] Creatine kinase [Enzymatic a ctivity/volume] in Serum or PlasmaOrdered By: Carlos Corbett on 10-28-2022 CK [Catalytic activity/Vol] 84 U/L 30-223 [facility] Creatinine [Mass/volume] in Serum or PlasmaOrdered By: Carlos Corbett on 10-28-2022 Creatinine [Mass/Vol] 1.20 mg/dL 0.70-1.30 [facility] Eosinophils Auto (Bld) [#/Vo l]Ordered By: Carlos Corbett on 10-28-2022 Eosinophils (Bld) [#/Vol] 0.1 10*3/uL 0.0-0.45 [facility] Eosinophils/100 WBC Auto (Bl d)Ordered By: Carlos Corbett on 10-28-2022 Eosinophils/100 WBC (Bld) 0.9 % . [facility] Erythrocyte distribution wid th Auto (RBC) [Ratio]Ordered By: Carlos Corbett on 10-28-2022 Erythrocyte distribution width (RBC) [Ratio] 19.8 % 12.0-14.8 [facility] Globulin Calc (S) [Mass/Vol] Ordered By: Carlos Corbett on 10-28-2022 Globulin (S) [Mass/Vol] 2.5 g/dL F [facility] Glucose [Mass/volume] in Ser um or PlasmaOrdered By: Carlos Corbett on 10-28-2022 Glucose [Mass/Vol] 103 mg/dL 70-100 [facility] Comment on above: ADA recommended refe rence rangeRandom Glucose Reference Range is dependent on time and content of last meal. Glucose of more than 200 mg/dL in a nonstressed, ambulatory subject supports the diagnosis of Diabetes Mellitus. Hematocrit Auto (Bld) [Volum e fraction]Ordered By: Carlos Corbett on 10-28-2022 Hematocrit (Bld) [Volume fraction] 40.4 % 38.8-50.0 [facility] Hemoglobin [Mass/volume] in BloodOrdered By: Carlos Corbett on 10-28-2022 Hemoglobin (Bld) [Mass/Vol] 12.9 g/dL 13.0-17.0 [facility] Leukocytes [#/volume] correc augustine for nucleated erythrocytes in Blood by Automated counOrdered By: Carlos Corbett on 10-28-2022 WBC corrected for nucl RBC Auto (Bld) [#/Vol] 8.9 10*3/uL 4.1-10.5 [facility] Lymphocytes Auto (Bld) [#/Vo l]Ordered By: Carlos Corbett on 10-28-2022 Lymphocytes (Bld) [#/Vol] 2.2 10*3/uL 1.00-4.8 [facility] Lymphocytes/100 WBC Auto (Bl d)Ordered By: Carlos Corbett on 10-28-2022 Lymphocytes/100 WBC (Bld) 24.4 % . [facility] MCH Auto (RBC) [Entitic mass ]Ordered By: Carlos Corbett on 10-28-2022 MCH (RBC) [Entitic mass] 25.3 pg 27.5-35.2 [facility] MCHC Auto (RBC) [Mass/Vol]Or dered By: Carlos Corbett on 10-28-2022 MCHC (RBC) [Mass/Vol] 31.8 g/dL 32.5-35.6 [facility] MCV Auto (RBC) [Entitic vol] Ordered By: Carlos Corbett on 10-28-2022 MCV (RBC) [Entitic vol] 79.6 fL 83.5-[address] [facility] Magnesium [Mass/volume] in S ky or PlasmaOrdered By: Trena Pena on 10-28-2022 Magnesium [Mass/Vol] 1.9 mg/dL 1.9-2.7 [facility] Monocyte distribution width [Entitic volume] in Blood by AutomatedOrdered By: Carlos Corbett on 10-28-2022 Monocyte distribution width Auto (Bld) [Entitic vol] 16.55 % 0.00-20.00 [facility] Monocytes Auto (Bld) [#/Vol] Ordered By: Carlos Corbett on 10-28-2022 Monocytes (Bld) [#/Vol] 1.0 10*3/uL 0.0-0.8 [facility] Monocytes/100 WBC Auto (Bld) Ordered By: Carlos Corbett on 10-28-2022 Monocytes/100 WBC (Bld) 11.8 % . F [facility] Natriuretic peptide B [Mass/ Vol]Ordered By: Carlos Corbett on 10-28-2022 Natriuretic peptide B (Bld) [Mass/Vol] 148.0 pg/mL 5-100 [facility] Neutrophils Auto (Bld) [#/Vo l]Ordered By: Carlos Corbett on 10-28-2022 Neutrophils (Bld) [#/Vol] 5.6 10*3/uL 1.8-7.7 [facility] Neutrophils/100 WBC Auto (Bl d)Ordered By: Carlos Corbett on 10-28-2022 Neutrophils/100 WBC (Bld) 62.5 % . [facility] No Panel InformationOrdered By: Carlos Corbett on 10-28-2022 Estimated GFR (CKD-EPI) > 60.0 mL/Min [facility] Creatinine Clearance (Chem 53.74 [facility] Nucleated erythrocytes [Pres ence] in Blood by Automated countOrdered By: Carlos Corbett on 10-28-2022 Nucleated RBC Auto Ql (Bld) 0.0 /100{WBC} 0-0.5 [facility] Platelet mean volume Auto (B ld) [Entitic vol]Ordered By: Carlos Corbett on 10-28-2022 Platelet mean volume (Bld) [Entitic vol] 7.8 fL 6.6-10.1 [facility] Platelets Auto (Bld) [#/Vol] Ordered By: Carlos Corbett on 10-28-2022 Platelets (Bld) [#/Vol] 215 10*3/uL 150-450 [facility] Potassium [Moles/volume] in Serum or PlasmaOrdered By: Carlos Corbett on 10-28-2022 Potassium [Moles/Vol] 4.2 mmol/L 3.5-5.1 [facility] Protein [Mass/volume] in Ser um or PlasmaOrdered By: Carlos Corbett on 10-28-2022 Protein [Mass/Vol] 6.5 g/dL 6.4-8.9 [facility] RBC Auto (Bld) [#/Vol]Ordere d By: Carlos Corbett on 10-28-2022 RBC (Bld) [#/Vol] 5.08 10*6/uL 3.90-5.60 [facility] Serum or plasma albumin/glob ulin mass ratioOrdered By: Carlos Corbett on 10-28-2022 Albumin/Globulin [Mass ratio] 1.6 {ratio} [facility] Serum or plasma anion gap de terminationOrdered By: Carlos Corbett on 10-28-2022 Anion gap [Moles/Vol] 11.0 mmol/L 6.0-15.0 [facility] Sodium [Moles/volume] in Ser um or PlasmaOrdered By: Carlos Corbett on 10-28-2022 Sodium [Moles/Vol] 139 mmol/L 136-145 [facility] Thyrotropin [Units/volume] i n Serum or PlasmaOrdered By: Karol Sage on 10-28-2022 TSH Qn 2.15 m[IU]/L 0.45-5.33 [facility] Troponin I.cardiac [Mass/vol ume] in Serum or Plasma by Detection limit <= 0.01 ng/Ordered By: Carlos Corbett on 10-28-2022 Troponin I.cardiac DL <= 0.01 ng/mL [Mass/Vol] 7.4 pg/mL 0.0-20.0 [facility] Urea nitrogen [Mass/volume] in Serum or PlasmaOrdered By: Carlos Corbtet on 10-28-2022 Urea nitrogen [Mass/Vol] 23 mg/dL 7-25 [facility] WBC Auto (Bld) [#/Vol]Ordere d By: Carlos Corbett on 10-28-2022 WBC (Bld) [#/Vol] 8.9 10*3/uL 4.1-10.5 [facility] CBC AUTO DIFFon 10-20-2022 BASO # 0.0 103/ul Normal 0.0-0.1 [facility] Comment on above: Performed By: #### C VDTBH #### [facility] [address] [place] [address] Dr. Steve Sevilla Basophils/100 WBC (Bld) 0.4 % Normal 0.2-2.0 [facility] Comment on above: Performed By: #### C VDTBH #### [facility] [address] [place] [address] Dr. Steve Sevilla EO # 0.1 103/ul Normal 0.0-0.7 [facility] Comment on above: Performed By: #### C VDTBH #### [facility] [address] [address] [address] Steve Sevilla Eosinophils/100 WBC (Bld) 1.1 % Normal 0.9-7.0 [facility] Comment on above: Performed By: #### C VDTBH #### [facility] [address] [place] [address] Dr. Steve Sevilla Erythrocyte distribution width (RBC) [Ratio] 18.6 % Critically high 11.0-15.0 [facility] Comment on above: Performed By: #### C VDTBH #### [facility] [address] [place] [address] Dr. Steve Sevilla Hematocrit (Bld) [Volume fraction] 42.9 % Normal 42.0-54.0 [facility] Comment on above: Performed By: #### C VDTBH #### [facility] [address] [place] [address] Dr. Steve Sevilla Hemoglobin (Bld) [Mass/Vol] 13.0 g/dL Critically low 14.0-18.0 [facility] Comment on above: Performed By: #### C VDTBH #### [facility] [address] [place] [address] Dr. Steve Sevilla IG # 0.03 10e3/ul Normal 0.00-0.03 [facility] Comment on above: Performed By: #### C VDTBH #### [facility] [address] [place] [address] Dr. Steve Sevilla IG % 0.3 % Normal 0.0-0.5 [facility] Comment on above: Performed By: #### C VDTBH #### [facility] [address] [place] [address] Dr. Steve Sevilla LYMPH # 2.6 103/ul Normal 1.2-3.8 [facility] Comment on above: Performed By: #### C VDTBH #### [facility] [address] [place] [address] Dr. Steve Sevilla Lymphocytes/100 WBC (Bld) 23.1 % Normal 20.5-60.0 [facility] Comment on above: Performed By: #### C VDTBH #### [facility] [address] [place] [address] Dr. Steve Sevilla MANUAL DIFF REQ NO Normal [facility] Comment on above: Performed By: #### C VDTBH #### [facility] [address] [place] [address] Dr. Steve Sevilla MCH (RBC) [Entitic mass] 25.0 pg Critically low 25.9-34 .0 [facility] Comment on above: Performed By: #### C VDTBH #### [facility] [address] [place] [address] Dr. Steve Sevilla MCHC (RBC) [Mass/Vol] 30.3 g/dL Normal 29.9-35.2 [facility] Comment on above: Performed By: #### C VDTBH #### [facility] [address] [place] [address] Dr. Steve Sevilla MCV (RBC) [Entitic vol] 82.7 fL Normal 80.0-94.0 [facility] Comment on above: Performed By: #### C VDTBH #### [facility] [address] [address] [address] Steve Sevilla MONO # 1.2 103/ul Critically high 0.3-0.8 [facility] Comment on above: Performed By: #### C VDTBH #### [facility] [address] [place] [address] Dr. Steve Sevilla Monocytes/100 WBC (Bld) 10.6 % Normal 1.7-12.0 [facility] Comment on above: Performed By: #### C VDTBH #### [facility] [address] [place] [address] Dr. Steve Sevilla NEUT # 7.2 103/ul Critically high 1.4-6.5 [facility] Comment on above: Performed By: #### C VDTBH #### [facility] [address] [place] [address] Dr. Steve Sevilla Neutrophils/100 WBC (Bld) 64.5 % Normal 43.0-75.0 [facility] Comment on above: Performed By: #### C VDTBH #### [facility] [address] [place] [address] Dr. Steve Sevilla Platelet mean volume (Bld) [Entitic vol] 8.9 fL Critically low 9.5-13.5 [facility] Comment on above: Performed By: #### C VDTBH #### [facility] [address] [place] [address] Dr. Steve Sevilla PLT 248 103/ul Normal 150-450 [facility] Comment on above: Performed By: #### C VDTBH #### [facility] [address] [place] [address] Dr. Steve Sevilla RBC 5.19 106/ul Normal 4.70-6.10 [facility] Comment on above: Performed By: #### C VDTBH #### [facility] [address] [place] [address] Dr. Steve Sevilla WBC 11.2 103/ul Critically high 4.0-11.0 [facility] Comment on above: Performed By: #### C VDTBH #### [facility] [address] [place] [address] Dr. Steve Sevilla FERRITINon 10-20-2022 Ferritin [Mass/Vol] 12.0 ng/mL Critically low 26.0-388.0 [facility] Comment on above: Performed By: #### F ETIBC, FERR #### [facility] [address] [place] [address] Dr. Steve Sevilla IRON AND TIBCon 10-20-2022 % SATURATION 12.1 % Normal [facility] Comment on above: Performed By: #### F ETIBC, FERR #### [facility] [address] [place] [address] Dr. Steve Sevilla Iron [Mass/Vol] 47.0 ug/dL Critically low 65.0-175.0 [facility] Comment on above: Performed By: #### F ETIBC, FERR #### [facility] [address] [place] [address] Dr. Steve Sevilla TIBC DIRECT 387.0 ug/dL Normal 250.0-450.0 [facility] Comment on above: Performed By: #### F ETIBC, FERR #### [facility] [address] [place] [address] Dr. Steve Sevilla Aspartate aminotransferase [ Enzymatic activity/volume] in Serum or PlasmaOrdered By: Alfred Baron on 10-15-2022 AST [Catalytic activity/Vol] 23 U/L 13-39 [facility] Calcium [Mass/volume] in Ser um or PlasmaOrdered By: Alfred Baron on 10-15-2022 Calcium [Mass/Vol] 8.4 mg/dL 8.6-10.3 [facility] Carbon dioxide, total [Moles /volume] in Serum or PlasmaOrdered By: Alfred Baron on 10-15-2022 CO2 [Moles/Vol] 28.2 mmol/L 21.0-31.0 [facility] Chloride [Moles/volume] in S ky or PlasmaOrdered By: Alfred Baron on 10-15-2022 Chloride [Moles/Vol] 106 mmol/L 98-107 [facility] Creatinine [Mass/volume] in Serum or PlasmaOrdered By: Alfred Baron on 10-15-2022 Creatinine [Mass/Vol] 1.13 mg/dL 0.70-1.30 [facility] Glucose [Mass/volume] in Ser um or PlasmaOrdered By: Alfred Baron on 10-15-2022 Glucose [Mass/Vol] 88 mg/dL 70-100 [facility] Comment on above: ADA recommended refe rence rangeRandom Glucose Reference Range is dependent on time and content of last meal. Glucose of more than 200 mg/dL in a nonstressed, ambulatory subject supports the diagnosis of Diabetes Mellitus. No Panel InformationOrdered By: Alfred Baron on 10-15-2022 Estimated GFR (CKD-EPI) > 60.0 mL/Min [facility] Creatinine Clearance (Chem N/A [facility] No Panel Informationon 10-15 > 60.0 Normal [facility] [employer] [place] [address] DO Work Phone: [phone] 10.4\S\10.4 Normal 6.0-15.0 [facility] [employer] [place] [address] DO Work Phone: 8.4\S\8.4 below low threshold 8.6-10.3 [facility] [employer] [place] [address] DO Work Phone: 28.2\S\28.2 Normal 21.0-31.0 [facility] [employer] [place] [address] DO Work Phone: 106\S\106 Normal 98-107 [facility] [employer] [place] [address] DO Work Phone: 4.6\S\4.6 Normal 3.5-5.1 [facility] [employer] [place] [address] DO Work Phone: 140\S\140 Normal 136-145 [facility] [employer] [place] [address] DO Work Phone: 1.13\S\1.13 Normal 0.70-1.30 [facility] [employer] [place] [address] DO Work Phone: 19\S\19 [facility] 7-25 [facility] Work Phone: 88\S\88 Normal 70-100 [facility] [place] 250 DO Work Phone: Comment on above: Random Glucose Refer ence Range is dependent on time and content of last meal. Glucose of more than 200 mg/dL in a nonstressed, ambulatory subject supports the diagnosis of Diabetes Mellitus. ADA recommended reference range 23\S\23 Normal 13-39 [facility] [place] 250 DO Work Phone: 1.66\S\1.66 Normal 0.45-5.33 [facility] [place] 250 DO Work Phone: Comment on above: PERFORMED BY:[address] [id number] [place], [place] [id number] MEDICAL DIRECTORGABINO ARCOS M.D. Potassium [Moles/volume] in Serum or PlasmaOrdered By: Alfred Baron on 10-15-2022 Potassium [Moles/Vol] 4.6 mmol/L 3.5-5.1 [facility] Radiologyon 10-15-2022 XR Chest [address] [facility] denis Crandall DO Work Phone: Serum or plasma anion gap de terminationOrdered By: Alfred Baron on 10-15-2022 Anion gap [Moles/Vol] 10.4 mmol/L 6.0-15.0 [facility] Sodium [Moles/volume] in Ser um or PlasmaOrdered By: Alfred Baron on 10-15-2022 Sodium [Moles/Vol] 140 mmol/L 136-145 [facility] Thyrotropin [Units/volume] i n Serum or PlasmaOrdered By: Alfred Baron on 10-15-2022 TSH Qn 1.66 m[IU]/L 0.45-5.33 [facility] Urea nitrogen [Mass/volume] in Serum or PlasmaOrdered By: Alfred Baron on 10-15-2022 Urea nitrogen [Mass/Vol] 19 mg/dL 7-25 [facility] Office Visit (Cardiology)on 07-15-2022 Follow-up visit Diagnoses/Problems Assessed CAD (coronary artery disease) (414.00) (I25.10) H/O non-ST elevation myocardial infarction (NSTEMI) (412) (I25.2) S/P PTCA (percutaneous transluminal coronary angioplasty) (V45.82) (Z98.61) High risk medication use (V58.69) (Z79.899) Anticoagulated (V58.61) (Z79.01) Mixed hyperlipidemia (272.2) (E78.2) Paroxysmal atrial fibrillation (427.31) (I48.0) Former smoker (V15.82) (Z87.891) quit 1995ish Overweight with body mass index (BMI) of 28 to 28.9 in adult (278.02,V85.24) (E66.3,Z68.28) Orders Anticoagulated, H/O non-ST elevation myocardial infarction (NSTEMI), S/P PTCA (percutaneous transluminal coronary angioplasty) Changed: From Aspirin EC Adult Low Strength 81 MG TBEC 1 tablet twice weekly To Aspirin 81 81 MG Oral Tablet Delayed Release 1 tablet twice weekly CAD (coronary artery disease), Mixed hyperlipidemia, S/P PTCA (percutaneous transluminal coronary angioplasty) Renew: Atorvastatin Calcium 40 MG Oral Tablet; TAKE 1 TABLET AT BEDTIME Overweight with body mass index (BMI) of 28 to 28.9 in adult Healthy Weight Tips; Status:Complete - Retrospective Authorization; Done: 15Jul2022 Some eating tips that can help you lose weight.; Status:Complete - Retrospective Authorization; Done: 15Jul2022 Paroxysmal atrial fibrillation IO EKG Electrocardiogram- 12 Lead; Status:Complete; Done: 15Jul2022 SocHx: Former smoker Tobacco Use Screening; Status:Complete; Done: 15Jul2022 Patient Instructions Please bring all medicines, vitamins, and herbal supplements with you when you come to the office. Prescriptions will not be filled unless you are compliant with your follow up appointments or have a follow up appointment scheduled as per instruction of your physician. Refills should be requested at the time of your visit. Follow up in 1 year Amiodarone follow up per routine Chief Complaint VALENTÍN BUCKNER is being seen for a 6 month follow-up of. 81-year-old gentleman who is here for follow-up he is doing well he has no cardiovascular complaints. He status post non-ST elevation CO May 2021, with a history of ASHD and prior three-vessel PCI in [place]. 1 of those events was for an inferior CO with revascularization of the RCA. Patient is notably severely allergic to Plavix and Effient. He has no history of stroke or bleeding disorder cancer peripheral vascular disease Has had mild paroxysmal atrial fibrillation, successfully treated with low-dose amiodarone, Eliquis with no bleeding or thromboembolic events recurrence of A. fib Today's ECG reveals sinus bradycardia with a W[place] interval 266, QT corrected interval 457, and evidence of Q waves inferior CO indeterminate age. Heart catheterization in May 2021 performed by myself revealed patent LAD and circumflex stents, first OM branch was occluded and treated conservatively. Is otherwise doing well without any angina or recurrent A. fib He is asking about coming off of Eliquis and because of his elevated [id number] score I recommended he stay on Eliquis with alternative dosing aspirin as noted. Will otherwise follow-up in 1 year and obtain appropriate laboratories Surgical History Problems History of Back surgery History of Complete colonoscopy History of Percutaneous transluminal coronary angioplasty History of Prostate surgery History of Radiofrequency ablation Current Meds Medication NameInstruction Amiodarone HCl - 200 MG Oral Tablet0.5 tablet tuesday through Fridays only Aspirin EC Adult Low Strength 81 MG TBEC1 tablet twice weekly Atorvastatin Calcium 40 MG Oral TabletTAKE 1 TABLET AT BEDTIME. Eliquis 5 MG Oral TabletTake 1 tablet twice daily Isosorbide Mononitrate ER 30 MG Oral Tablet Extended Release 24 HourTAKE 1 TABLET ONCE DAILY. Loratadine 10 MG Oral CapsuleTAKE 1 CAPSULE Daily prn Pantoprazole Sodium 40 MG Oral Tablet Delayed ReleaseTAKE 1 TABLET DAILY. as needed Vitamin D3 50 MCG (1999) Oral CapsuleTAKE 1 CAPSULE Daily Zinc 50 MG Oral TabletTAKE 1 TABLET DAILY. Allergies Medication Plavix Allergy; Rash; Recorded By: Sarah King; 07/01/2021 11:55:50 AM Social History Problems Consumes alcohol occasionally (V49.89) (Z78.9) Daily caffeine consumption 1-2 cups daily Former smoker (V15.82) (Z87.891) quit 1995ish No illicit drug use Review of Systems Constitutional: not feeling tired. Cardiovascular: no intermittent leg claudication and as noted in HPI. Respiratory: no cough and no shortness of breath. Gastrointestinal: no change in bowel habits and no blood in stools. Integumentary: no skin rashes. Neurological: no seizures and no frequent falls. All other systems have been reviewed and are negative for complaint. Vitals Vital Signs Recorded: 15Jul2022 10:06AM Heart Rate50, Apical Ocnjatir658, LUE, Sitting Qvgxjgsdw54, LUE, Sitting Height5 ft 9 in Fspkdj460 lb BMI Frrzzuoxjo42.94 kg/m2 BSA Calculated2.05 Tobacco Useb) No PHQ-2 #1. Over the (more content not included)... Normal [employer] Tobacco Screening.on 023 Adult depression screening assessment No [facility] [employer] DO Work Phone: Fall risk assessment b) One or more fall s in the last year [facility] [employer] DO Work Phone: Tobacco use status [facility] b) No M [facility] [employer] DO Work Phone: Creatinine and Glomerular fi ltration rate.predicted panel (S/P/Bld)Ordered By: Alfred Baron on 07-12-2022 Creatinine [Mass/Vol] 1.02 mg/dL 0.64-1.27 [facility] Estimated glomerular filtrat ion rate (GFR) non- AmericanOrdered By: Alfred Baron on 07-12-2022 GFR/1.73 sq M.predicted among non-blacks MDRD (S/P/Bld) [Vol rate/Area] > 60 mL/Min [facility] No Panel InformationOrdered By: Alfred Baron on 07-12-2022 Estimated GFR () > 60 mL/Min [facility] Comment on above: GFR estimated refere nce range: According to KDOQI guidelines, <60 ml/min/1.73m2 is sufficient to diagnose a patient with chronic kidney disease. Pharmacy Creatinine Clearance (Chem N/A [facility] No Panel Informationon 07-12 10.7\S\10.7 Normal 6.0-15.0 [facility] [employer] DO Work Phone: 9.0\S\9.0 Normal 8.2-10.2 [facility] Michael barrios 250 DO Work Phone: 26.7\S\26.7 Normal 22.0-30.0 [facility] Michael barrios 250 DO Work Phone: 106\S\106 Normal 95-114 [facility] Michael barrios 250 DO Work Phone: 4.4\S\4.4 Normal 3.5-5.1 [facility] Michael barrios 250 DO Work Phone: 139\S\139 Normal 136-146 [facility] Michael barrios 250 DO Work Phone: > 60 Normal [facility] Michael barrios 250 DO Work Phone: Comment on above: GFR estimated refere nce range: According to KDOQI guidelines, <60 ml/min/1.73m2 is sufficient to diagnose a patient with chronic kidney disease. 1.02\S\1.02 Normal 0.64-1.27 [facility] Michael barrios 250 DO Work Phone: 18\S\18 Normal 9-23 [facility] Michael barrios 250 DO Work Phone: 86\S\86 Normal 70-100 [facility] Michael barrios 250 DO Work Phone: Comment on above: Random Glucose Refer ence Range is dependent on time and content of last meal. Glucose of more than 200 mg/dL in a nonstressed, ambulatory subject supports the diagnosis of Diabetes Mellitus. ADA recommended reference range 22\S\22 Normal 10-42 [facility] Michael barrios 250 DO Work Phone: [phone] 1.82\S\1.82 Normal 0.45-5.33 [facility] Michael barrios 250 DO Work Phone: Comment on above: PERFORMED BY:[address] [place] [place], [place] [id number] MEDICAL DIRECTORGABINO ARCOS M.D. Radiologyon 07-12-2022 XR Chest 2 Views Normal [facility] [address] DO Work Phone: Serum or plasma anion gap de terminationOrdered By: Alfred Baron on 07-12-2022 Anion gap [Moles/Vol] 10.7 mmol/L 6.0-15.0 [facility] Serum or plasma aspartate am inotransferase measurement (enzymatic activity/volume)Ordered By: Alfred Baron on 07-12-2022 AST [Catalytic activity/Vol] 22 U/L 10-42 [facility] Serum or plasma calcium sean urement (mass/volume)Ordered By: Alfred Baron on 07-12-2022 Calcium [Mass/Vol] 9.0 mg/dL 8.2-10.2 [facility] Serum or plasma chloride nicolasa surement (moles/volume)Ordered By: Alfred Baron on 07-12-2022 Chloride [Moles/Vol] 106 mmol/L 95-114 [facility] Serum or plasma glucose sean urement (mass/volume)Ordered By: Alfred Baron on 07-12-2022 Glucose [Mass/Vol] 86 mg/dL 70-100 [facility] Comment on above: ADA recommended refe rence rangeRandom Glucose Reference Range is dependent on time and content of last meal. Glucose of more than 200 mg/dL in a nonstressed, ambulatory subject supports the diagnosis of Diabetes Mellitus. Serum or plasma potassium me asurement (moles/volume)Ordered By: Alfred Baron on 07-12-2022 Potassium [Moles/Vol] 4.4 mmol/L 3.5-5.1 [facility] Serum or plasma sodium measu rement (moles/volume)Ordered By: Alfred Baron on 07-12-2022 Sodium [Moles/Vol] 139 mmol/L 136-146 [facility] Serum or plasma total carbon dioxide measurement (moles/volume)Ordered By: Alfred Baron on 07-12-2022 CO2 [Moles/Vol] 26.7 mmol/L 22.0-30.0 [facility] Serum or plasma urea nitroge n measurement (mass/volume)Ordered By: Alfred Baron on 07-12-2022 Urea nitrogen [Mass/Vol] 18 mg/dL 03-19 [facility] TSH DL <= 0.005 mIU/L QnOrde red By: Alfred BrownTod on 07-12-2022 TSH Qn 1.82 m[IU]/L 0.45-5.33 [facility] Covid-19 PCR ([facility])on 05-28 SARS-CoV-2 (COVID-19) RNA LO+probe Ql (Unsp spec) Not detected Normal NOT DETECTED [facility] Comment on above: Result Comment: This test is not yet approved or cleared by the [place] FDA. When there are no FDA-approved or cleared tests available, and other criteria are met, FDA can make tests available under an emergency access mechanism called an Emergency Use Authorization (EUA). The EUA for this test is supported by the [place] of Health and Human Service's (HHS's) declaration that circumstances exist to justify the emergency use of in vitro diagnostics for the detection and/or diagnosis of the virus that causes COVID-19. This EUA will remain in effect (meaning this test can be used) for the duration of the COVID-19 declaration justifying emergency of IVDs, unless it is terminated or revoked by FDA (after which the test may no longer be used). When diagnostic testing is negative, the possibility of a false negative should be considered in the context of a patient's recent exposures and the presence of clinical signs and symptoms consistent with SARS-CoV-2. Performed By: #### C VDTBH #### [facility] [address] [place] [address] Dr. Steve Sevilla INFLUENZA A AND B AGon 06-15 INFLUBNEGH SEE BELOW Normal [facility] Comment on above: Result Comment: Nega tive for Flu B protein antigen. Infection due to Flu B cannot be ruled out. Flu B antigen in the sample may be below the detection limit of the test. Performed By: #### C VDTBH #### [facility] [address] [place] [address] Dr. Steve Sevilla INFLUENZA A AG Positive Abnormal NEGATIVE SEE COMMENT [facility] Comment on above: Performed By: #### C VDTBH #### [facility] [address] [place] [address] Dr. Steve Sevilla INFLUENZA B AG Negative Normal NEGATIVE SEE COMMENT [facility] Comment on above: Performed By: #### C VDTBH #### [facility] [address] [place] [address] Dr. Steve Sevlila INFLUPOSH SEE BELOW Normal [facility] Comment on above: Result Comment: NOTE : Live attenuated influenzae vaccine viruses can cause a positive result for a rapid influenza diagnostic test if administered up to 7 days prior to rapid testing. Performed By: #### C VDTBH #### [facility] [address] [place] [address] Dr. Steve Sevilla INTERNAL CONTROLS Within Normal Limits Normal Wi thin Normal Limits [facility] Comment on above: Performed By: #### C VDTBH #### [facility] [address] [place] [address] Dr. Steve Sevilla CBC AUTO DIFFon 04-20-2022 BASO # 0.0 103/ul Normal 0.0-0.1 [facility] Comment on above: Performed By: #### C BC #### [facility] [address] [place] [address] Dr. Steve Sevilla Basophils/100 WBC (Bld) 0.4 % Normal 0.2-2.0 [facility] Comment on above: Performed By: #### C BC #### [facility] [address] [place] [address] Dr. Steve Sevilla EO # 0.1 103/ul Normal 0.0-0.7 [facility] Comment on above: Performed By: #### C BC #### [facility] [address] [place] [address] Dr. Steve Sevilla Eosinophils/100 WBC (Bld) 1.5 % Normal 0.9-7.0 [facility] Comment on above: Performed By: #### C BC #### [facility] [address] [place] [address] Dr. Steve Sevilla Erythrocyte distribution width (RBC) [Ratio] 16.5 % Critically high 11.0-15.0 [facility] Comment on above: Performed By: #### C BC #### [facility] [address] [place] [address] Dr. Steve Sevilla Hematocrit (Bld) [Volume fraction] 43.1 % Normal 42.0-54.0 [facility] Comment on above: Performed By: #### C BC #### [facility] [address] [place] [address] Dr. Steve Sevilla Hemoglobin (Bld) [Mass/Vol] 13.3 g/dL Critically low 14.0-18.0 [facility] Comment on above: Performed By: #### C BC #### [facility] [address] [place] [address] Dr. Steve Sevilla IG # 0.02 10e3/ul Normal 0.00-0.03 [facility] Comment on above: Performed By: #### C BC #### [facility] [address] [place] [address] Dr. Steve Sevilla IG % 0.2 % Normal 0.0-0.5 [facility] Comment on above: Performed By: #### C BC #### [facility] [address] [place] [address] Dr. Steve Sevilla LYMPH # 2.6 103/ul Normal 1.2-3.8 [facility] Comment on above: Performed By: #### C BC #### [facility] [address] [place] [address] Dr. Steve Sevilla Lymphocytes/100 WBC (Bld) 27.8 % Normal 20.5-60.0 [facility] Comment on above: Performed By: #### C BC #### [facility] [address] [place] [address] Dr. Steve Sevilla MANUAL DIFF REQ NO Normal [facility] Comment on above: Performed By: #### C BC #### [facility] [address] [place] [address] Dr. Steve Sevilla MCH (RBC) [Entitic mass] 27.3 pg Normal 25.9-34.0 [facility] Comment on above: Performed By: #### C BC #### [facility] [address] [address] [address] Steve Sevilla MCHC (RBC) [Mass/Vol] 30.9 g/dL Normal 29.9-35.2 [facility] Comment on above: Performed By: #### C BC #### [facility] [address] [address] [address] Steve Sevilla MCV (RBC) [Entitic vol] 88.3 fL Normal 80.0-94.0 [facility] Comment on above: Performed By: #### C BC #### [facility] [address] [address] [address] Steve Sevilla MONO # 1.5 103/ul Critically high 0.3-0.8 [facility] Comment on above: Performed By: #### C BC #### [facility] [address] [place] [address] Dr. Steve Sevilla Monocytes/100 WBC (Bld) 15.8 % Critically high 1.7-12. 0 [facility] Comment on above: Performed By: #### C BC #### [facility] [address] [address] [address] Steve Sevilla NEUT # 5.0 103/ul Normal 1.4-6.5 [facility] Comment on above: Performed By: #### C BC #### [facility] [address] [place] [address] Dr. Steve Sevilla Neutrophils/100 WBC (Bld) 54.3 % Normal 43.0-75.0 [facility] Comment on above: Performed By: #### C BC #### [facility] [address] [place] [address] Dr. Steve Sevilla Platelet mean volume (Bld) [Entitic vol] 9.2 fL Critically low 9.5-13.5 [facility] Comment on above: Performed By: #### C BC #### [facility] [address] [place] [address] Dr. Steve Sevilla PLT 239 103/ul Normal 150-450 [facility] Comment on above: Performed By: #### C BC #### [facility] [address] [address] [address] Steve Sevilla RBC 4.88 106/ul Normal 4.70-6.10 [facility] Comment on above: Performed By: #### C BC #### [facility] [address] [address] [address] Steve Sevilla WBC 9.3 103/ul Normal 4.0-11.0 [facility] Comment on above: Performed By: #### C BC #### [facility] [address] [address] [address] Steve Sevilla Covid-19 PCR ([facility])on 03-27 SARS-CoV-2 (COVID-19) RNA LO+probe Ql (Unsp spec) Not detected Normal NOT DETECTED [facility] Comment on above: Result Comment: This test is not yet approved or cleared by the [place] FDA. When there are no FDA-approved or cleared tests available, and other criteria are met, FDA can make tests available under an emergency access mechanism called an Emergency Use Authorization (EUA). The EUA for this test is supported by the [place] of Health and Human Service's (HHS's) declaration that circumstances exist to justify the emergency use of in vitro diagnostics for the detection and/or diagnosis of the virus that causes COVID-19. This EUA will remain in effect (meaning this test can be used) for the duration of the COVID-19 declaration justifying emergency of IVDs, unless it is terminated or revoked by FDA (after which the test may no longer be used). When diagnostic testing is negative, the possibility of a false negative should be considered in the context of a patient's recent exposures and the presence of clinical signs and symptoms consistent with SARS-CoV-2. Performed By: #### C VDTBH #### [facility] [address] [address] [address] Steve Sevilla Creatinine and Glomerular fi ltration rate.predicted panel (S/P/Bld)Ordered By: Alfred Baron on 03-24-2022 Creatinine [Mass/Vol] 1.17 mg/dL 0.64-1.27 [facility] Estimated glomerular filtrat ion rate (GFR) non- AmericanOrdered By: Alfred Baron on 03-24-2022 GFR/1.73 sq M.predicted among non-blacks MDRD (S/P/Bld) [Vol rate/Area] 60 mL/Min [facility] No Panel InformationOrdered By: Alfred Baron on 03-24-2022 Estimated GFR () > 60 mL/Min [facility] Comment on above: GFR estimated refere nce range: According to KDOQI guidelines, <60 ml/min/1.73m2 is sufficient to diagnose a patient with chronic kidney disease. Pharmacy Creatinine Clearance (Chem N/A [facility] Serum or plasma anion gap de terminationOrdered By: Alfred Baron on 03-24-2022 Anion gap [Moles/Vol] 13.5 mmol/L 6.0-15.0 [facility] Serum or plasma aspartate am inotransferase measurement (enzymatic activity/volume)Ordered By: Alfred Baron on 03-24-2022 AST [Catalytic activity/Vol] 19 U/L 10-42 [facility] Serum or plasma calcium sean urement (mass/volume)Ordered By: Alfred Baron on 03-24-2022 Calcium [Mass/Vol] 8.7 mg/dL 8.2-10.2 [facility] Serum or plasma chloride nicolasa surement (moles/volume)Ordered By: Alfred Baron on 03-24-2022 Chloride [Moles/Vol] 100 mmol/L 95-114 [facility] Serum or plasma glucose sean urement (mass/volume)Ordered By: Alfred Baron on 03-24-2022 Glucose [Mass/Vol] 147 mg/dL 70-100 [facility] Comment on above: ADA recommended refe rence rangeRandom Glucose Reference Range is dependent on time and content of last meal. Glucose of more than 200 mg/dL in a nonstressed, ambulatory subject supports the diagnosis of Diabetes Mellitus. Serum or plasma potassium me asurement (moles/volume)Ordered By: Alfred Baron on 03-24-2022 Potassium [Moles/Vol] 4.2 mmol/L 3.5-5.1 [facility] Serum or plasma sodium measu rement (moles/volume)Ordered By: Alfred Baron on 09-28-2022 Sodium [Moles/Vol] 138 mmol/L 136-146 [facility] Serum or plasma total carbon dioxide measurement (moles/volume)Ordered By: Alfred Baron on 03-24-2022 CO2 [Moles/Vol] 28.7 mmol/L 22.0-30.0 [facility] Serum or plasma urea nitroge n measurement (mass/volume)Ordered By: Alfred Baron on 03-24-2022 Urea nitrogen [Mass/Vol] 17 mg/dL 9-23 [facility] TSH DL <= 0.005 mIU/L QnOrde red By: Alfred Baron on 03-24-2022 TSH Qn 2.20 m[IU]/L 0.45-5.33 [facility] MRI LSPINE WO CONon 01-09-20 MRI LSPINE WO CON EXAMINATION: MRI LSPINE WO CON HISTORY: Low back pain COMPARISON: No relevant comparison available. TECHNIQUE: A variety of imaging planes and parameters were utilized for visualization of suspected pathology. FINDINGS: For the purposes of numbering, sagittal T2 image # 8 extends from the T11 vertebral body superiorly to the S2-S3 level inferiorly. PARASPINAL AREA: Normal with no visible mass. BONES: Normal alignment with no acute fracture or spondylolisthesis. Mild to moderate degenerative spondylosis. Area of decreased T1 increased T2 and STIR signal along the superior anterior margin of the L2 and inferior margin of the L4 vertebral bodies. Findings are consistent with inflammatory changes CORD/CAUDA EQUINA: Normal caliber, contour, and signal intensity. DISC LEVELS: 12-L1: Early degenerative disc disease is present without focal protrusion or neural impingement. L1-L2: Early degenerative disc disease is present without focal protrusion or neural impingement. L2-L3: No significant disc/facet abnormality, spinal stenosis, or foraminal stenosis. L3-L4: Mild disc desiccation. Mild posterior disc bulging. Severe ligamentum flavum hypertrophy and facet osteoarthropathy resulting in mild canal stenosis axial image 21. No foraminal stenosis. L4-L5: Moderate disc desiccation. Endplate sclerosis. Mild posterior disc/osteophyte complex. Mild ligamentum flavum hypertrophy and facet osteoarthropathy. No central canal stenosis. Mild narrowing of the right neural foramen L5-S1: Severe disc space narrowing with endplate sclerosis. Mild diffuse disc/osteophyte complex and facet osteoarthropathy. No central canal stenosis. Bilateral foraminal stenosis IMPRESSION: Degenerative changes with L3-L4 central canal stenosis and multilevel foraminal stenosis as above Electronically authenticated by: KIKA CHO Date: 2022-01-07 22:16 Normal [facility] Tobacco Screening.on Fall risk assessment a) No falls within the last year [facility] [employer] 250 DO Work Phone: [phone] Tobacco use status CP b) No M [facility] [place] [address] DO Work Phone: [phone] XR LSPINE MIN 4 VIEWSon 07 XR LSPINE MIN 4 VIEWS EXAMINATION: XR LSPINE MIN 4 VIEWS HISTORY: Low back pain , chronic COMPARISON: No relevant comparison available. FINDINGS: BONES: Minimal grade 1 anterior listhesis of L4 on 5. Moderate degenerative facet arthropathy L3-L4 through L5-S1. No fracture. DISC SPACES: Mild narrowing L4-L5. Moderate marked narrowing L5-S1. PARASPINOUS: Negative. No paraspinous abnormality is seen. OTHER: Negative. IMPRESSION: 1. 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 Consider MRI for further evaluation. Electronically authenticated by: LYNDA BYNUM Date: 2021-12-30 12:12 Normal [facility] Tobacco Screening.on Fall risk assessment a) No falls within the last year [facility] [employer] 250 DO Work Phone: [phone] Tobacco use status [facility] [facility] b) No M [facility] [employer] 250 DO Work Phone: Tobacco Screening.on Adult depression screening assessment No [facility] [employer] 250 DO Work Phone: [phone] Tobacco use status [facility] b) No M [facility] [employer] 250 DO Work Phone: [phone] [facility] Adult depression screening assessment No [facility] [employer] 250 DO Work Phone: Tobacco Screening.on Fall risk assessment a) No falls within the last year [facility] 250 DO Work Phone: Tobacco use status [facility] b) No M -[facility] [place] 250 DO Work Phone: Tobacco Screening.on 022 Fall risk assessment a) No falls within the last year [facility] [place] 250 DO Work Phone: Tobacco use status [facility] b) No M -[facility] [place] 250 DO Work Phone: BASIC METABOLIC PANELon 04-27 Calcium mass conc 8.5 mg/dL Low 8.6-10.3 [facility] Comment on above: Order Comment: No: D o not add to previous draw Performed By: #### 3 0910, [id number] ####[facility] [place] [address], [facility] Chloride molar conc 107 mmol/L Normal 98-107 [facility] Comment on above: Order Comment: No: D o not add to previous draw Performed By: #### 3 0, 03511 ####[facility] [place] [address], [facility] CO2 molar conc 29 mmol/L Normal 21-31 [facility] Comment on above: Order Comment: No: D o not add to previous draw Performed By: #### 3 0, [id number] ####[facility] [place] [address], [facility] Creatinine mass conc 0.89 mg/dL Normal 0.70-1.30 [facility] Comment on above: Order Comment: No: D o not add to previous draw Performed By: #### 3 0, 29626 ####[facility] [place] [address], [facility] GFR/1.73 sq M predicted among blacks MDRD vol rate/area (S/P/Bld) mL/min/{1.73_m2} Normal >60 [facility] Comment on above: Order Comment: No: D o not add to previous draw Result Comment: Calc ulation may not be valid for patients over 70 years Performed By: #### 3 5199, 07403 ####[facility] [id number], [facility] GFR/1.73 sq M predicted among non-blacks MDRD vol rate/area (S/P/Bld) mL/min/{1.73_m2} Normal >60 [facility] Comment on above: Order Comment: No: D o not add to previous draw Result Comment: Calc ulation may not be valid for patients over 70 years Performed By: #### 3 5199, 98417 ####[facility] [place] [address], [facility] Glucose mass conc 95 mg/dL Normal 70-100 [facility] Comment on above: Order Comment: No: D o not add to previous draw Performed By: #### 3 5199, 27842 ####[facility] [place] [address], [place] Potassium molar conc 3.8 mmol/L Normal 3.5-5.1 [facility] Comment on above: Order Comment: No: D o not add to previous draw Performed By: #### 3 5199, 92303 ####[facility] [place] [address], [place] Sodium molar conc 141 mmol/L Normal 136-145 [facility] Comment on above: Order Comment: No: D o not add to previous draw Performed By: #### 3 5199, 76680 ####[facility] [place] [address], [place] Urea nitrogen mass conc 19 mg/dL Normal 7-25 [facility] Comment on above: Order Comment: No: D o not add to previous draw Performed By: #### 3 5199, 29082 ####[facility] [place] [address], [place] CBC COMPLETE BLOOD COUNTon 07-10-2017 Erythrocyte distribution width Auto Ratio (RBC) 13.2 % Normal 11.5-15.0 [facility] Comment on above: Order Comment: No: D o not add to previous draw Performed By: #### 5 0608 ####[facility] Hematocrit Auto Volume Fraction (Bld) 44.5 % Normal 39.0-50.0 [facility] Comment on above: Order Comment: No: D o not add to previous draw Performed By: #### 5 0608 ####[facility] Hemoglobin mass conc (Bld) 15.0 g/dL Normal 13.0-17.0 [facility] Comment on above: Order Comment: No: D o not add to previous draw Performed By: #### 5 0608 ####[facility] MCH Auto Entitic mass (RBC) 31.1 pg Normal 27.0-33.0 [facility] Comment on above: Order Comment: No: D o not add to previous draw Performed By: #### 5 0608 ####[facility] MCHC Auto mass conc (RBC) 33.7 g/dL Normal 32.0-35.0 [facility] Comment on above: Order Comment: No: D o not add to previous draw Performed By: #### 5 0608 ####[facility] MCV Auto Entitic volume (RBC) 92.1 fL Normal 82.0-98.0 [facility] Comment on above: Order Comment: No: D o not add to previous draw Performed By: #### 5 0608 ####[facility] Nucleated RBC/100 WBC Ratio (Bld) 0 % Normal 0-0 [facility] Comment on above: Order Comment: No: D o not add to previous draw Performed By: #### 5 0608 ####[facility] PLAT CNT 179 10*3/uL Normal 150-400 [facility] Comment on above: Order Comment: No: D o not add to previous draw Performed By: #### 5 0608 ####[facility] RBC Auto #/vol (Bld) 4.83 10*6/uL Normal 4.20-5.70 [facility] Comment on above: Order Comment: No: D o not add to previous draw Performed By: #### 5 0608 ####[facility] WBC Auto #/vol (Bld) 7.52 10*3/uL Normal 4.00-10.60 [facility] Comment on above: Order Comment: No: D o not add to previous draw Performed By: #### 5 0608 ####[facility] History and Physicalon 05-10 History and Physical MR[id number] Valentín Buckner Admitted: 05/09/2018 Date of : 1940 Attending Physician: Niki Ross MD Room #: 3CD [id number] Discharge Date: HISTORY AND PHYSICALHISTORY OF PRESENT ILLNESS: The [facility] is a 77[facility] was concern for unstable angina typesymptoms and transferred over here for further management. The patient isover there had an EKG, which showed sinus rhythm without any significantEKG changes and troponins were negative as well as chest x-ray. Duringinterview, the patient tells me that he has been for the last 3-4 daysfeels somewhat short of breath without any particular chest pain, but hedid comment of some jaw discomfort. His symptoms seems there are noalleviating or aggravating factors. The patient denies any cold sweats orany dizziness or nausea or vomiting.PAST MEDICAL HISTORY: Significant for NSTEMI with initially stent tocircumflex and RCA 2014 and subsequent stent to LAD in 2016 and these aredrug-eluting stents. Also past medical history of hypertension andhyperlipidemia.MED ICATIONS: The patient takes Norvasc 10 mg daily, loratadine 10 mgdaily, Imdur 30 mg daily, Xanax 0.25 at bedtime, Lipitor 20 mg daily,aspirin 81 mg daily, and nitroglycerin sublingual. The patient does notseem to be on any beta-blockers.ALLERGI ES: The patient has allergy to Brilinta as well as Plavix.SOCIAL HISTORY: Ex-smoker, quit about 30 years ago, and he is occasionaldrinker.PAS T SURGICAL HISTORY: Beside cardiac cath and stents, the patient hadprostatectomy for prostate cancer and he had recurrence that requiredradiation treatment. The patient also had right shoulder melanoma removedand he had also lower back surgery, what looks like laminectomy.FAMILY HISTORY: Dad had what the patient describes as colon cancer. Momdied from old age and he had a brother in the 40s with CO.REVIEW OF SYSTEMS: Again, mostly the 2 things bothering him somehow littlebit his shortness of breath as well as this jaw discomfort.PHYSICAL EXAMINATION: HEENT: Eyes; extraocular muscles intact. NECK:Supple. No JVD or lymphadenopathy.LUNGS : Clear to auscultation.HEART: S1, S2.ABDOMEN: Soft. Positive bowel sounds. EXTREMITIES: Positive pulses.NEUROLOGIC: The patient alert, awake, oriented x3. No focal neurodeficit. MUSCULOSKELETAL: No major joint deformities or tenderness oredema.PSYCHIATRIC: He is little bit anxious, otherwise, denies feeling depressedor suicidal. SKIN: Intact.LABORATORY DATA: Again at [facility], the patient had EKG, whichshowed sinus rhythm. Troponins x2 negative. Sodium 136, potassium 4.0,chloride 101, CO2 of 27.4, BUN 17, creatinine 0.99. ProBNP 149. WBC 7.9,hemoglobin 16.8, hematocrit 48.7, and platelet of 189. Troponins less than0.012. CK-MB was 1.31 and the 2nd one as well remain the same negative.Chest x-ray was negative.ASSESSMENT AND PLAN:1. Shortness of breath and jaw pain, cannot rule out unstable angina. The patient will be admitted to the floor and his home medications will be resumed including Imdur or aspirin as well as nitroglycerin sublingual. The patient also will have serial troponins as well as telemetry monitoring. At this moment, the patient seems resting comfortably. I will not start him on any heparin drip at this moment.2. Coronary artery disease status post myocardial infarction with stents to circumflex, RCA and LAD. Again, his medications will be resumed in particular Imdur and Lipitor as well as Xanax. I am not sure why the patient is not on any beta-mulugeta, but in the room, I noticed that his heart rate is in the 50s and could be the reason why.3. Hypertension. Continue Norvasc 10 mg daily. Again, Cardiology will be on-board and if by any mean overnight the patient starts having some chest discomfort or worsening jaw pain, I will consider heparin drip.Electronically Signed by:Niki Ross MD 05/11/2018 05:48 P Niki Ross MDDate Dict: 05/09/2018/09:16 P/Niki Ross MDDate Trans: 05/10/2018 05:14 A/[id number] Normal [facility] TROPONIN-Ion 05-10-2018 Troponin I.cardiac mass conc 0.01 ng/mL Normal 0.00-0.04 [facility] Comment on above: Order Comment: No: D o not add to previous draw Result Comment: REFE ALFREDA RANGES: 0.00 - 0.04 ng/ml NORMAL 0.05 - 0.50 ng/ml INDETERMINATE > 0.50 ng/ml CONSISTENT WITH AN M.I. Performed By: #### 3 8150, 00343 ####[facility] Troponin I.cardiac mass conc 0.01 ng/mL Normal 0.00-0.04 [facility] Comment on above: Order Comment: No: D o not add to previous draw Result Comment: REFE RENCE RANGES: 0.00 - 0.04 ng/ml NORMAL 0.05 - 0.50 ng/ml INDETERMINATE > 0.50 ng/ml CONSISTENT WITH AN M.I. Performed By: #### 3 5200 ####[facility] TROPONIN-Ion 05-09-2018 Troponin I.cardiac mass conc 0.00 ng/mL Normal 0.00-0.04 [facility] Comment on above: Order Comment: No: D o not add to previous draw Result Comment: REFE RENCE RANGES: 0.00 - 0.14 ng/ml NEGATIVE 0.15 - 0.25 ng/ml INDETERMINATE > 0.25 ng/ml INDICATIVE OF AN M.I. Performed By: #### 3 5200 ####[facility] Vital Signs Date Time Vital Sign Value Performing Clinician Facility 11-15-2023 11:30-0400 Body height 175.26 cm DO Irving Ball Work Phone: [facility] 11-15-2023 11:30-0400 Body mass index (BMI) [Ratio] 29.2 kg/m2 DO Irving Ball Work Phone: [facility] 11-15-2023 11:30-0400 Body weight 89.81 kg DO Irving Ball Work Phone: [facility] 11-15-2023 11:30-0400 Diastolic blood pressure 73 mm[Hg] DO Irving Ball Work Phone: [facility] 11-15-2023 11:30-0400 Heart rate 56 /min DO Irving Ball Work Phone: [facility] 11-15-2023 11:30-0400 Respiratory rate 12 /min DO Irving Ball Work Phone: [facility] 11-15-2023 11:30-0400 Systolic blood pressure 125 mm[Hg] DO Irving Ball Work Phone: [facility] 10-26-2023 10:24-0400 Diastolic blood pressure 75 mm[Hg] DO Irving Ball Work Phone: [facility] 10-26-2023 10:24-0400 Heart rate 43 /min DO Irving Ball Work Phone: [facility] 10-26-2023 10:24-0400 Respiratory rate 18 /min DO Irving Ball Work Phone: [facility] 10-26-2023 10:24-0400 SaO2% (BldA) [Mass fraction] 96 % DO Irving Ball Work Phone: [facility] 10-26-2023 10:24-0400 Systolic blood pressure 131 mm[Hg] DO Irving Ball Work Phone: [facility] 10-26-2023 08:35-0400 Body height 175.26 cm DO Irving Ball Work Phone: [facility] 10-26-2023 08:35-0400 Body weight 89.35 kg DO Irving Ball Work Phone: [facility] 10-17-2023 14:27-0400 Body height 175.26 cm DO Irving Ball Work Phone: [facility] 10-17-2023 14:27-0400 Body mass index (BMI) [Ratio] 23.1 kg/m2 DO Irving Ball Work Phone: [facility] 10-17-2023 14:27-0400 Body weight 71 kg DO Irving Ball Work Phone: [facility] 09-23-2023 11:12-0400 Body height 175.26 cm DO Irving Ball Work Phone: [facility] 09-23-2023 11:12-0400 Body mass index (BMI) [Ratio] 29.5 kg/m2 DO Irving Ball Work Phone: [facility] 09-23-2023 11:12-0400 Body weight 90.71 kg DO Irving Ball Work Phone: [facility] 09-23-2023 11:12-0400 Diastolic blood pressure 75 mm[Hg] DO Irving Ball Work Phone: [facility] 09-23-2023 11:12-0400 Heart rate 53 /min DO Irving Ball Work Phone: [facility] 09-23-2023 11:12-0400 Respiratory rate 12 /min DO Irving Ball Work Phone: [facility] 09-23-2023 11:12-0400 Systolic blood pressure 165 mm[Hg] DO Irving Ball Work Phone: [facility] 09-14-2023 09:27-0400 Body height 175.26 cm DO Irving Ball Work Phone: [facility] 09-14-2023 09:27-0400 Body mass index (BMI) [Ratio] 30 kg/m2 DO Irving Ball Work Phone: [facility] 09-14-2023 09:27-0400 Body weight 92.24 kg DO Irving Ball Work Phone: [facility] 09-14-2023 09:27-0400 Diastolic blood pressure 75 mm[Hg] DO Irving Ball Work Phone: [facility] 09-14-2023 09:27-0400 Heart rate 67 /min DO Irving Ball Work Phone: [facility] 09-14-2023 09:27-0400 Respiratory rate 16 /min DO Irving Ball Work Phone: [facility] 09-14-2023 09:27-0400 Systolic blood pressure 134 mm[Hg] DO Irving Ball Work Phone: [facility] 08-04-2023 11:00-0500 Body height 175.26 cm Irving Ball Other [facility] Other 08-04-2023 11:00-0500 Body mass index (BMI) [Ratio] 29.89 kg/m2 Irving Ball Other [facility] Other 08-04-2023 11:00-0500 Body weight 91.81 kg Irving Ball Other [facility] Other 08-04-2023 11:00-0500 Diastolic blood pressure 53 mm[Hg] Irving Ball Other [facility] Other 08-04-2023 11:00-0500 Respiratory rate 12 /min Irving Ball Other [facility] Other 08-04-2023 11:00-0500 Systolic blood pressure 132 mm[Hg] Irving Ball Other [facility] Other 07-25-2023 13:04-0500 Body height 175.3 cm Brendon Baron DO Work Phone: [facility] 07-25-2023 13:04-0500 Body mass index (BMI) [Ratio] 29.98 kg/m2 Brendon Baron DO Work Phone: [facility] 07-25-2023 13:04-0500 Body weight 92.08 kg Brendon Baron DO Work Phone: [facility] 07-25-2023 13:04-0500 Diastolic blood pressure 70 mm[Hg] Brendon Baron DO Work Phone: [facility] 07-25-2023 13:04-0500 Heart rate 44 /min Brendon Baron DO Work Phone: [facility] 07-25-2023 13:04-0500 Systolic blood pressure 102 mm[Hg] Brendon Baron DO Work Phone: [facility] 05-13-2023 11:15-0500 Body height 175.26 cm Irving Ball Other [facility] Other 05-13-2023 11:15-0500 Body mass index (BMI) [Ratio] 29.15 kg/m2 Irving Ball Other [facility] Other 05-13-2023 11:15-0500 Body weight 89.54 kg Irving Ball Other [facility] Other 05-13-2023 11:15-0500 Diastolic blood pressure 62 mm[Hg] Irving Ball Other [facility] Other 05-13-2023 11:15-0500 Respiratory rate 12 /min Irving Ball Other [facility] Other 05-13-2023 11:15-0500 Systolic blood pressure 114 mm[Hg] Irving Ball Other [facility] Other 05-04-2023 11:30-0500 Body height 175.26 cm Irving Ball Other [facility] Other 05-04-2023 11:30-0500 Body mass index (BMI) [Ratio] 29.12 kg/m2 Ivring Ball Other [facility] Other 05-04-2023 11:30-0500 Body weight 89.45 kg Irving Ball Other [facility] Other 05-04-2023 11:30-0500 Diastolic blood pressure 65 mm[Hg] Irving Ball Other [facility] Other 05-04-2023 11:30-0500 Respiratory rate 12 /min Irving Ball Other [facility] Other 05-04-2023 11:30-0500 Systolic blood pressure 124 mm[Hg] Irving Ball Other [facility] Other 04-21-2023 11:11-0400 Diastolic blood pressure 70 mm[Hg] DO Irving Ball Work Phone: [facility] 04-21-2023 11:11-0400 Heart rate 51 /min DO Irving Ball Work Phone: [facility] 04-21-2023 11:11-0400 Respiratory rate 16 /min DO Irving Ball Work Phone: [facility] 04-21-2023 11:11-0400 SaO2% (BldA) [Mass fraction] 95 % DO Irving Ball Work Phone: [facility] 04-21-2023 11:11-0400 Systolic blood pressure 133 mm[Hg] DO Irving Ball Work Phone: [facility] 04-21-2023 08:03-0400 Body height 175.26 cm DO Irving Ball Work Phone: [facility] 04-21-2023 08:03-0400 Body temperature 98.2 [degF] DO Irving Ball Work Phone: [facility] 04-21-2023 08:03-0400 Body weight 86.18 kg DO Irving Ball Work Phone: [facility] 03-01-2023 15:30-0400 Body height 175.26 cm Markell Garza Other [facility] Other 03-01-2023 15:30-0400 Body mass index (BMI) [Ratio] 28.94 kg/m2 Markell Garza Other [facility] Other 03-01-2023 15:30-0400 Body weight 88.91 kg Markell Garza Other [facility] Other 03-01-2023 15:30-0400 Diastolic blood pressure 78 mm[Hg] Markell Garza Other [facility] Other 03-01-2023 15:30-0400 Systolic blood pressure 130 mm[Hg] Markell Garza Other [facility] Other 02-01-2023 11:30-0400 Body height 175.26 cm Irving Ball Other [facility] Other 02-01-2023 11:30-0400 Body mass index (BMI) [Ratio] 28.91 kg/m2 Irving Ball Other [facility] Other 02-01-2023 11:30-0400 Body weight 88.81 kg Irving Ball Other [facility] Other 02-01-2023 11:30-0400 Diastolic blood pressure 71 mm[Hg] Riving Ball Other [facility] Other 02-01-2023 11:30-0400 Respiratory rate 12 /min Irving Ball Other [facility] Other 02-01-2023 11:30-0400 Systolic blood pressure 126 mm[Hg] Irving Ball Other [facility] Other 01-03-2023 11:01-0400 Heart rate 46 /min Irving E Ball Work Phone: [facility] DO Work Phone: 01-03-2023 10:58-0400 Body height 175.26 cm Irving E Ball Work Phone: [facility] DO Work Phone: 01-03-2023 10:58-0400 Body mass index (BMI) [Ratio] 29.24 kg/m2 Irving Floyd Ball Work Phone: [facility] 250 DO Work Phone: 01-03-2023 10:58-0400 Body surface area Derived from formula 2.06 m2 Irving E Ball Work Phone: [facility] [place] 250 DO Work Phone: 01-03-2023 10:58-0400 Body weight 89.81 kg Irving Floyd Ball Work Phone: [facility] 250 DO Work Phone: 01-03-2023 10:58-0400 Diastolic blood pressure 80 mm[Hg] Irving Floyd Ball Work Phone: [facility] 250 DO Work Phone: 01-03-2023 10:58-0400 Systolic blood pressure 150 mm[Hg] Irving Floyd Ball Work Phone: [facility] 250 DO Work Phone: 12-08-2022 11:55-0400 Diastolic blood pressure 66 mm[Hg] Irving Floyd Ball Work Phone: [facility] 250 DO Work Phone: 12-08-2022 11:55-0400 Heart rate 52 /min Irving Floyd Ball Work Phone: [facility] 250 DO Work Phone: 12-08-2022 11:55-0400 Systolic blood pressure 124 mm[Hg] Irving E Ball Work Phone: [facility] 250 DO Work Phone: 12-08-2022 11:54-0400 Body height 175.26 cm Irving E Ball Work Phone: [facility] 250 DO Work Phone: 12-08-2022 11:54-0400 Body mass index (BMI) [Ratio] 29.24 kg/m2 Irving E Ball Work Phone: [facility] 250 DO Work Phone: 12-08-2022 11:54-0400 Body surface area Derived from formula 2.06 m2 Irving E Ball Work Phone: [facility] 250 DO Work Phone: 12-08-2022 11:54-0400 Body weight 89.81 kg Irving E Ball Work Phone: [facility] 250 DO Work Phone: 12-08-2022 11:54-0400 Diastolic blood pressure 70 mm[Hg] Irving E Ball Work Phone: [facility] 250 DO Work Phone: 12-08-2022 11:54-0400 Systolic blood pressure 130 mm[Hg] Irving E Ball Work Phone: [facility] 250 DO Work Phone: 11-29-2022 09:30-0400 Body height 175.26 cm Irving E Ball Work Phone: [facility] 250 DO Work Phone: 11-29-2022 09:30-0400 Body mass index (BMI) [Ratio] 29.09 kg/m2 Irving E Ball Work Phone: [facility] 250 DO Work Phone: 11-29-2022 09:30-0400 Body surface area Derived from formula 2.05 m2 Irving E Ball Work Phone: [facility] 250 DO Work Phone: 11-29-2022 09:30-0400 Body weight 89.36 kg Irving E Ball Work Phone: [facility] 250 DO Work Phone: 11-29-2022 09:30-0400 Diastolic blood pressure 82 mm[Hg] Irving E Ball Work Phone: [facility] 250 DO Work Phone: 11-29-2022 09:30-0400 Heart rate 44 /min Irving E Ball Work Phone: [facility] 250 DO Work Phone: 11-29-2022 09:30-0400 Systolic blood pressure 142 mm[Hg] Irving E Ball Work Phone: [facility] 250 DO Work Phone: 11-02-2022 12:30-0400 Body height 175.26 cm Irving Ball Other [facility] Other 11-02-2022 12:30-0400 Body mass index (BMI) [Ratio] 28.88 kg/m2 Irving Ball Other [facility] Other 11-02-2022 12:30-0400 Body weight 88.72 kg Irving Ball Other [facility] Other 11-02-2022 12:30-0400 Diastolic blood pressure 70 mm[Hg] Irving Ball Other [facility] Other 11-02-2022 12:30-0400 Respiratory rate 12 /min Irving Ball Other [facility] Other 11-02-2022 12:30-0400 Systolic blood pressure 148 mm[Hg] Irving Ball Other [facility] Other 10-28-2022 21:03-0400 Diastolic blood pressure 66 mm[Hg] DO Irving Ball Work Phone: [facility] 10-28-2022 21:03-0400 Heart rate 57 /min DO Irving Ball Work Phone: [facility] 10-28-2022 21:03-0400 Respiratory rate 16 /min DO Irving Ball Work Phone: [facility] 10-28-2022 21:03-0400 SaO2% (BldA) [Mass fraction] 96 % DO Irving Ball Work Phone: [facility] 10-28-2022 21:03-0400 Systolic blood pressure 135 mm[Hg] DO Irving Ball Work Phone: [facility] 10-28-2022 20:17-0400 Body height 175.26 cm DO Irving Ball Work Phone: [facility] 10-28-2022 20:17-0400 Body temperature 98.3 [degF] DO Irving Ball Work Phone: [facility] 10-28-2022 20:17-0400 Body weight 90.7 kg DO Irving Ball Work Phone: [facility] 10-26-2022 14:30-0400 Body height 175.26 cm Irving Ball Other [facility] Other 10-26-2022 14:30-0400 Body mass index (BMI) [Ratio] 29.32 kg/m2 Irving Ball Other [facility] Other 10-26-2022 14:30-0400 Body weight 90.08 kg Irving Ball Other [facility] Other 10-26-2022 14:30-0400 Diastolic blood pressure 80 mm[Hg] Irving Ball Other [facility] Other 10-26-2022 14:30-0400 Systolic blood pressure 147 mm[Hg] Irving Ball Other [facility] Other 10-01-2022 09:45-0400 Body height 175.26 cm Irving Ball Other [facility] Other 10-01-2022 09:45-0400 Body mass index (BMI) [Ratio] 29.41 kg/m2 Irving Ball Other [facility] Other 10-01-2022 09:45-0400 Body weight 90.36 kg Irving Ball Other [facility] Other 10-01-2022 09:45-0400 Diastolic blood pressure 74 mm[Hg] Irving Ball Other [facility] Other 10-01-2022 09:45-0400 Respiratory rate 12 /min Irving Ball Other [facility] Other 10-01-2022 09:45-0400 Systolic blood pressure 157 mm[Hg] Irving Ball Other [facility] Other 09-02-2022 11:30-0500 Body height 175.26 cm Irving Ball Other [facility] Other 09-02-2022 11:30-0500 Body mass index (BMI) [Ratio] 29.5 kg/m2 Irving Ball Other [facility] Other 09-02-2022 11:30-0500 Body weight 90.63 kg Irving Ball Other [facility] Other 09-02-2022 11:30-0500 Diastolic blood pressure 70 mm[Hg] Irving Ball Other [facility] Other 09-02-2022 11:30-0500 Respiratory rate 12 /min Irving Ball Other [facility] Other 09-02-2022 11:30-0500 Systolic blood pressure 112 mm[Hg] Irving Ball Other [facility] Other 08-18-2022 09:45-0500 Body height 175.26 cm Irving Ball Other [facility] Other 08-18-2022 09:45-0500 Body mass index (BMI) [Ratio] 29.59 kg/m2 Irving Ball Other [facility] Other 08-18-2022 09:45-0500 Body weight 90.9 kg Irving Ball Other [facility] Other 08-18-2022 09:45-0500 Diastolic blood pressure 86 mm[Hg] Irving Ball Other [facility] Other 08-18-2022 09:45-0500 Respiratory rate 12 /min Irving Ball Other [facility] Other 08-18-2022 09:45-0500 Systolic blood pressure 142 mm[Hg] Irving Ball Other [facility] Other 07-15-2022 10:06-0500 Body height 175.26 cm Irving E Ball Work Phone: [employer] [employer] DO Work Phone: 07-15-2022 10:06-0500 Body mass index (BMI) [Ratio] 28.94 kg/m2 Irving E Ball Work Phone: [employer] [employer] [facility] DO Work Phone: 07-15-2022 10:06-0500 Body surface area Derived from formula 2.05 m2 Irving E Ball Work Phone: [facility] [employer] [facility] DO Work Phone: 07-15-2022 10:06-0500 Body weight 88.91 kg Irving Floyd Ball Work Phone: [facility] 250 DO Work Phone: 07-15-2022 10:06-0500 Diastolic blood pressure 78 mm[Hg] Irving E Ball Work Phone: [facility] 250 DO Work Phone: 07-15-2022 10:06-0500 Heart rate 50 /min Irving E Ball Work Phone: [facility] 250 DO Work Phone: 07-15-2022 10:06-0500 Systolic blood pressure 118 mm[Hg] Irving E Ball Work Phone: [facility] 250 DO Work Phone: 01-05-2022 13:30-0400 Body height 175.26 cm Irving Floyd Ball Work Phone: [facility] 250 DO Work Phone: 01-05-2022 13:30-0400 Body mass index (BMI) [Ratio] 29.09 kg/m2 Irving Floyd Ball Work Phone: [facility] 250 DO Work Phone: 01-05-2022 13:30-0400 Body surface area Derived from formula 2.05 m2 Irving Floyd Ball Work Phone: [facility] 250 DO Work Phone: 01-05-2022 13:30-0400 Body weight 89.36 kg Irving E Ball Work Phone: [facility] 250 DO Work Phone: 01-05-2022 13:30-0400 Diastolic blood pressure 62 mm[Hg] Irving E Ball Work Phone: [facility] 250 DO Work Phone: 01-05-2022 13:30-0400 Heart rate 50 /min Irving E Ball Work Phone: [facility] 250 DO Work Phone: 01-05-2022 13:30-0400 Systolic blood pressure 120 mm[Hg] Irving E Ball Work Phone: [facility] 250 DO Work Phone: 12-14-2021 12:42-0400 Body height 175.26 cm Irving E Ball Work Phone: [facility] 250 DO Work Phone: 12-14-2021 12:42-0400 Body mass index (BMI) [Ratio] 28.65 kg/m2 Irving E Ball Work Phone: [facility] 250 DO Work Phone: 12-14-2021 12:42-0400 Body surface area Derived from formula 2.04 m2 Irving E Ball Work Phone: [facility] 250 DO Work Phone: 12-14-2021 12:42-0400 Body weight 88 kg Irving E Ball Work Phone: [facility] 250 DO Work Phone: 12-14-2021 12:42-0400 Diastolic blood pressure 80 mm[Hg] Irving E Ball Work Phone: [facility] 250 DO Work Phone: 12-14-2021 12:42-0400 Heart rate 50 /min Irving E Ball Work Phone: [facility] 250 DO Work Phone: 12-14-2021 12:42-0400 Systolic blood pressure 134 mm[Hg] Irving E Ball Work Phone: [facility] 250 DO Work Phone: 12-14-2021 08:42-0400 Body height 175.26 cm Irving E Ball Work Phone: [facility] 250 DO Work Phone: 12-14-2021 08:42-0400 Body mass index (BMI) [Ratio] 28.65 kg/m2 Irving E Ball Work Phone: [facility] 250 DO Work Phone: 12-14-2021 08:42-0400 Body surface area Derived from formula 2.04 m2 Irving E Ball Work Phone: [facility] 250 DO Work Phone: 12-14-2021 08:42-0400 Body weight 88 kg Irving E Ball Work Phone: [facility] 250 DO Work Phone: 12-14-2021 08:42-0400 Diastolic blood pressure 80 mm[Hg] Irving E Ball Work Phone: [facility] 250 DO Work Phone: 12-14-2021 08:42-0400 Heart rate 49 /min Irving E Ball Work Phone: [facility] 250 DO Work Phone: 12-14-2021 08:42-0400 Systolic blood pressure 154 mm[Hg] Irving E Ball Work Phone: [facility] 250 DO Work Phone: 10-16-2021 14:16-0400 Body height 175.26 cm Irving E Ball Work Phone: [facility] 250 DO Work Phone: 10-16-2021 14:16-0400 Body mass index (BMI) [Ratio] 29.54 kg/m2 Irving E Ball Work Phone: [facility] 250 DO Work Phone: 10-16-2021 14:16-0400 Body surface area Derived from formula 2.07 m2 Irving E Ball Work Phone: [facility] 250 DO Work Phone: 10-16-2021 14:16-0400 Body weight 90.72 kg Irving E Ball Work Phone: [facility] 250 DO Work Phone: 10-16-2021 14:16-0400 Diastolic blood pressure 70 mm[Hg] Irving E Ball Work Phone: [facility] 250 DO Work Phone: 10-16-2021 14:16-0400 Heart rate 59 /min Irving E Ball Work Phone: [facility] 250 DO Work Phone: 10-16-2021 14:16-0400 Systolic blood pressure 134 mm[Hg] Irving E Ball Work Phone: [facility] 250 DO Work Phone: 10-07-2021 09:36-0400 Body height 175.26 cm Irving E Ball Work Phone: [facility] 250 DO Work Phone: 10-07-2021 09:36-0400 Body mass index (BMI) [Ratio] 28.86 kg/m2 Irving E Ball Work Phone: [facility] 250 DO Work Phone: 10-07-2021 09:36-0400 Body surface area Derived from formula 2.05 m2 Irving E Ball Work Phone: [facility] 250 DO Work Phone: 10-07-2021 09:36-0400 Body weight 88.63 kg Irving E Ball Work Phone: [facility] 250 DO Work Phone: 10-07-2021 09:36-0400 Diastolic blood pressure 70 mm[Hg] Irving E Ball Work Phone: [facility] 250 DO Work Phone: 10-07-2021 09:36-0400 Heart rate 68 /min Irving E Ball Work Phone: [facility] 250 DO Work Phone: 10-07-2021 09:36-0400 Systolic blood pressure 136 mm[Hg] Irving E Ball Work Phone: [facility] 250 DO Work Phone: 09-02-2021 09:57-0500 Body height 175.26 cm Irving E Ball Work Phone: [facility] 250 DO Work Phone: 09-02-2021 09:57-0500 Body mass index (BMI) [Ratio] 29.39 kg/m2 Irving E Ball Work Phone: [facility] 250 DO Work Phone: 09-02-2021 09:57-0500 Body surface area Derived from formula 2.06 m2 Irving E Ball Work Phone: [facility] 250 DO Work Phone: 09-02-2021 09:57-0500 Body weight 90.27 kg Irving E Ball Work Phone: [facility] 250 DO Work Phone: 09-02-2021 09:57-0500 Diastolic blood pressure 98 mm[Hg] Irving E Ball Work Phone: [facility] 250 DO Work Phone: 09-02-2021 09:57-0500 Diastolic blood pressure 102 mm[Hg] Irving E Ball Work Phone: [facility] 250 DO Work Phone: 09-02-2021 09:57-0500 Systolic blood pressure 180 mm[Hg] Irving Floyd Ball Work Phone: [facility] 250 DO Work Phone: 09-02-2021 09:57-0500 Systolic blood pressure 172 mm[Hg] Irving E Ball Work Phone: [facility] 250 DO Work Phone: 09-02-2021 09:57-0500 Systolic blood pressure 152 mm[Hg] Irving Mariel Ball Work Phone: [facility] 250 DO Work Phone: 09-02-2021 09:57-0500 66 1 Irving E Ball Work Phone: [facility] 250 DO Work Phone: Comment on above: [employer]UL[employer]Ly [employer] 09-02-2021 09:57-0500 58 1 Irving Floyd Ball Work Phone: [facility] 250 DO Work Phone: Comment on above: [employer] 07-01-2021 11:57-0500 Body height 175.26 cm Irving Floyd Ball Work Phone: [facility] 250 DO Work Phone: 07-01-2021 11:57-0500 Body mass index (BMI) [Ratio] 28.8 kg/m2 Irving Floyd Ball Work Phone: [facility] 250 DO Work Phone: 07-01-2021 11:57-0500 Body surface area Derived from formula 2.04 m2 Irving E Ball Work Phone: [facility] 250 DO Work Phone: 07-01-2021 11:57-0500 Body weight 88.45 kg Irving Canela Work Phone: [facility] 250 DO Work Phone: 07-01-2021 11:57-0500 Diastolic blood pressure 76 mm[Hg] Irving Canela Work Phone: [facility] 250 DO Work Phone: 07-01-2021 11:57-0500 Heart rate 42 /min Irving Canela Work Phone: [facility] 250 DO Work Phone: 07-01-2021 11:57-0500 Systolic blood pressure 145 mm[Hg] Irving Canela Work Phone: [facility] 250 DO Work Phone: Encounters Encounter Date Encounter Type Care Provider Facility Start: 02-13-2024 ambulatory Bethel Lopez ty:[facility] [place] Start: 11-22-2023 End: 11-22-2023 ambulatory Miriam Ann Facility:[facility] Start: 11-22-2023 Non-patient / Non-visit DO Levar Canela Work Phone: [facility] Work Phone: Start: 11-22-2023 End: 11-22-2023 ambulatory DO Irving Canela Work Phone: [facility] Work Phone: Start: 11-22-2023 End: 11-22-2023 Departed Referred DO Irving Canela Work Phone: [facility] Start: 11-15-2023 End: 11-15-2023 ambulatory DO Irving Canela Work Phone: [facility] Work Phone: Start: 11-15-2023 End: 11-15-2023 Patient encounter procedure DO Irving Canela Work Phone: [facility] Work Phone: Start: 11-14-2023 End: 11-14-2023 ambulatory BASHIR BARBOSA Not Available Start: 10-29-2023 Non-patient / Non-visit DO Levar tania Ball Work Phone: [facility] Work Phone: Start: 10-26-2023 End: 10-26-2023 ambulatory Irving Ball Facility:[facility] Start: 10-26-2023 Non-patient / Non-visit DO Levar tania Ball Work Phone: [facility] Gastroenterology Work Phone: Start: 10-26-2023 End: 10-26-2023 Admission to same day surgery center DO Irving Ball Work Phone: [facility] Work Phone: Start: 10-20-2023 Non-patient / Non-visit DO Levar tania Ball Work Phone: [facility] Work Phone: Start: 10-17-2023 End: 10-17-2023 ambulatory DO Irving Ball Work Phone: [facility] Work Phone: Start: 10-17-2023 End: 10-17-2023 Patient encounter procedure DO Irving Ball Work Phone: [facility] Gastroenterology Work Phone: Start: 2023 Non-patient / Non-visit DO Levar tania Ball Work Phone: [facility] Work Phone: Start: 09-23-2023 End: 09-23-2023 ambulatory DO Irving Ball Work Phone: [facility] Work Phone: Start: 09-23-2023 End: 09-23-2023 Patient encounter procedure DO Irving Ball Work Phone: [facility] Work Phone: Start: 09-14-2023 End: 09-14-2023 ambulatory DO Irving Canela Work Phone: [facility] Work Phone: Start: 09-14-2023 End: 09-14-2023 Patient encounter procedure DO Irving Canela Work Phone: [facility] Work Phone: Start: 09-01-2023 Non-patient / Non-visit DO Levar Canela Work Phone: [facility] Pulmonary Disease Work Phone: Start: 08-29-2023 End: 08-29-2023 ambulatory W Murali Tod Facility:[facility] Start: 08-29-2023 End: 08-29-2023 Patient encounter procedure DO Irving Canela Work Phone: [facility] Work Phone: Start: 08-26-2023 Non-patient / Non-visit DO Levar Canela Work Phone: [facility] Work Phone: Start: 08-15-2023 End: 08-15-2023 ambulatory BASHIR Buchanan CHELSEY Not Available Start: 08-04-2023 End: 08-04-2023 ambulatory Irving Canela Other [facility] [employer] Other Start: 08-04-2023 Office outpatient vi sit 25 minutes Irving Canela [facility] Start: 07-25-2023 End: 07-25-2023 ambulatory [facility] Ambulatory Start: 07-25-2023 End: 07-25-2023 Office outpatient visit 25 minutes Brendon Ferrer [place] DO Work Phone: [facility] Comment on above: Bradycardia; H/O non-ST elevation myocardial infarction (NSTEMI); Paroxysmal atrial fibrillation (CMS/HCC); S/P PTCA (percutaneous transluminal coronary angioplasty) Start: 06-14-2023 End: 06-14-2023 ambulatory BASHIR A PETITTI Not Available Start: 05-13-2023 End: 05-13-2023 ambulatory Irving Canela Other [facility] Other Start: 05-13-2023 Office outpatient vi sit 15 minutes Irving Canela [facility] Start: 05-12-2023 End: 05-12-2023 ambulatory BASHIR A PETITTI Not Available Start: 05-04-2023 End: 05-04-2023 ambulatory Irving Canela Other [facility] Other Start: 05-04-2023 Office outpatient vi sit 25 minutes Irving Canela [facility] Start: 04-21-2023 Telephone encounter Markell Montes myah [facility] Start: 04-21-2023 End: 04-21-2023 ambulatory Irving Canela Facility:[facility] Start: 04-21-2023 End: 04-21-2023 Admission to same day surgery center DO Irving Canela Work Phone: [facility]-Dig[facility] Work Phone: Start: 04-21-2023 End: 04-21-2023 ambulatory DO Irving Canela Work Phone: [facility] Work Phone: Start: 03-25-2023 End: 03-25-2023 ambulatory Irving Canela Other [facility] Other Start: 03-25-2023 Telephone encounter Irving Canela [facility] Start: 03-23-2023 FUV, Provider: Florence Norman, Status: Pen, Time: 12:30 PM Irving Canela Work Phone: [facility] DO Work Phone: Start: 03-23-2023 ambulatory Ms. Florence Lingvalente Aden Facility: Start: 03-22-2023 Chart Update Irving Rg l Work Phone: [facility] 250 DO Work Phone: Start: 03-21-2023 Chart Update Irving shelby Work Phone: [facility] 250 DO Work Phone: Start: 03-21-2023 End: 03-21-2023 ambulatory W Murali Baron Facility:[facility] Start: 03-21-2023 End: 03-21-2023 ambulatory DO Irving Canela Work Phone: [facility] Work Phone: Start: 03-21-2023 End: 03-21-2023 Patient encounter procedure DO Irving Canela Work Phone: [facility]-Respiratory Therapy Work Phone: Start: 03-07-2023 ambulatory Ms. Florence Aden Facility: Start: 03-01-2023 End: 03-01-2023 ambulatory Markell Garza Other [facility] Other Start: 03-01-2023 Office outpatient ne w 45 minutes Markell Garza [facility] Gastroenterology Start: 02-01-2023 End: 02-01-2023 ambulatory Irving Canela Other [facility] Other Start: 02-01-2023 Office outpatient vi sit 25 minutes Irving Canela [facility] Start: 01-13-2023 Rx Renewal Irving shelby Work Phone: [facility] 250 DO Work Phone: Start: 01-03-2023 Office outpatient vi sit 15 minutes [facility] Work Phone: Start: 01-03-2023 Patient encounter procedure Irving [facility]iel [facility] Work Phone: Start: 01-03-2023 ambulatory Ms. Florence Aden Facility: Start: 12-31-2022 Rx Renewal Irving Mariel Bal l Work Phone: [facility] 250 DO Work Phone: Start: 12-28-2022 ambulatory Rose Green Facility : Start: 12-08-2022 Office outpatient vi sit 5 minutes Irving Mariel Ball Work Phone: [facility] 250 DO Work Phone: Start: 12-08-2022 Patient encounter procedure Irving Mariel Ball Work Phone: [facility] 250 DO Work Phone: Start: 12-08-2022 ambulatory Ms. Florence Aden Facility: Start: 11-29-2022 Office outpatient vi sit 25 minutes Irving Mariel Ball Work Phone: [facility] 250 DO Work Phone: Start: 11-29-2022 ambulatory Ms. Florence Aden Facility: Start: 11-02-2022 End: 11-02-2022 ambulatory Irving Canela Other [facility] Other Start: 11-02-2022 Transitional care manage srvc 14 day discharge Irving Canela [facility] Start: 11-01-2022 End: 11-01-2022 ambulatory Irving Rola Other [facility] Other Start: 11-01-2022 Telephone encounter Irving Canela [facility] Start: 10-31-2022 End: 10-31-2022 ambulatory Irving Canela Other [facility] Other Start: 10-31-2022 Telephone encounter Irving Rola VAN[facility] Start: 10-29-2022 End: 10-29-2022 ambulatory Irving Canela Other [facility] Other Start: 10-29-2022 Telephone encounter Irving [facility] Start: 10-28-2022 Evaluation and management of inpatient DO Irving Canela Work Phone: [facility] Work Phone: Start: 10-28-2022 observation encounter DO Miguel Canela Work Phone: [facility] Work Phone: Start: 10-26-2022 End: 10-26-2022 ambulatory Irving Canela Other [facility] Other Start: 10-26-2022 Patient encounter procedure Irving AMBRIZ oRla [facility] Start: 10-20-2022 End: 10-21-[address] IRVING CANELA Facility: Start: 10-15-2022 Rx Renewal [facility] Work Phone: Start: 10-15-2022 End: 10-15-2022 ambulatory DO Irving Canela Work Phone: [facility] Work Phone: Start: 10-15-2022 End: 10-15-2022 Patient encounter procedure DO Irving Canela Work Phone: [facility] Work Phone: Start: 10-01-2022 End: 10-01-2022 ambulatory Irving Canela Other [facility] Other Start: 10-01-2022 Office outpatient vi sit 25 minutes Irving Canela [facility] Start: 09-30-2022 End: 09-30-2022 ambulatory Irving Canela Other [facility] Other Start: 09-30-2022 Telephone encounter Irving [facility] Start: 09-08-2022 Patient encounter procedure Irving Canela Work Phone: [facility] [place] [facility] DO Work Phone: Start: 09-07-2022 End: 09-07-2022 ambulatory Irving Canela Other [facility] Other Start: 09-07-2022 Telephone encounter Irving Canela [facility] Start: 09-02-2022 End: 09-02-2022 ambulatory Irving Canela Other [facility] Other Start: 09-02-2022 Office outpatient vi sit 15 minutes Irving Rola [facility] Start: 08-18-2022 Rx Renewal Irving Rg l Work Phone: [facility] 250 DO Work Phone: Start: 08-18-2022 End: 08-18-2022 ambulatory Irving Canela Other [facility] Other Start: 08-18-2022 Office outpatient vi sit 25 minutes Irving Canela [facility] Start: 07-15-2022 Office outpatient vi sit 15 minutes Irving Canela Work Phone: [facility] DO Work Phone: Start: 07-15-[address] Irving Canela Facility: Start: 07-12-2022 End: 07-12-2022 ambulatory DO Irving Canela Work Phone: [facility] Work Phone: Start: 07-12-2022 End: 07-12-2022 Patient encounter procedure DO Irving Canela Work Phone: [facility]-Respiratory Therapy Work Phone: Start: 06-15-2022 End: 06-15-[address] IRVING CANELA Facility:[facility] Start: 06-03-2022 Patient encounter procedure Irving Canela Work Phone: [facility] [place] 250 DO Work Phone: Start: 05-31-[address] IRVING CANELA Facili ty:[facility] Start: 05-13-2022 End: 05-14-2022 ambulatory RADHA RUBY . Facility:[facility] Start: 04-20-2022 End: 04-21-[address] IRVING CANELA Facility:[facility] Start: 04-13-2022 End: 04-13-[address] BEAU SIM . Facility:[facility] Start: 04-12-2022 Encounter for preprocedural laboratory examination [facility] Start: 04-10-2022 End: 04-11-[address] IRVING CANELA Facility:[facility] Start: 04-10-2022 End: 04-11-2022 Encounter for preprocedural laboratory examination DR IRVING CANELA Facility:[facility] Start: 03-25-2022 End: 03-26-[address] BEAU SIM . Facility:[facility] Start: 03-24-2022 End: 03-24-2022 ambulatory DO Irving Canela Work Phone: [facility] Work Phone: Start: 03-24-2022 End: 03-24-2022 Patient encounter procedure DO Irving Canela Work Phone: [facility]-Respiratory Therapy Start: 03-09-2022 End: 03-09-[address] BEAU SIM . Facility:[facility] Start: 02-26-2022 Patient encounter procedure [facility] Work Phone: Start: 02-09-2022 End: 02-10-[address] BEAU SIM . Facility:[facility] Start: 01-26-2022 End: 01-26-[address] BEAU SIM . Facility:[facility] Start: 01-19-2022 End: 01-20-[address] PHILL EUBANKS Facility:[facility] Start: 01-18-2022 Patient encounter procedure Irving Canela Work Phone: [facility] [place] 250 DO Work Phone: Start: 01-07-2022 End: 01-08-[address] PHILL EUBANKS Facility:[facility] Start: 01-05-2022 Office outpatient vi sit 40 minutes Irving E Ball Work Phone: [facility] [place] 250 DO Work Phone: Start: 12-29-2021 End: 12-30-[address] PHILL EUBANKS Facility: Start: 12-14-2021 Office outpatient vi sit 25 minutes Irving E Ball Work Phone: [facility] [place] 250 DO Work Phone: Start: 11-09-2021 Adult health examination Irving Canela Other [facility] Other Start: 10-29-2021 Patient encounter procedure Irving E Ball Work Phone: [facility] 250 DO Work Phone: Start: 10-29-2021 Rx Renewal Irving Floyd Bal l Work Phone: [facility] 600 DO Work Phone: Start: 10-16-2021 Patient encounter procedure Irving E Ball Work Phone: [facility] 250 DO Work Phone: Start: 10-07-2021 Office outpatient vi sit 25 minutes Irving E Ball Work Phone: [facility] DO Work Phone: Start: 10-07-2021 Patient encounter procedure Irving E Ball Work Phone: [facility] 250 DO Work Phone: Start: 09-25-2021 AUDIT Irving Floyd Bal l Work Phone: [facility] 250 DO Work Phone: Start: 09-07-2021 Patient encounter procedure Irving E Ball Work Phone: [facility] 250 DO Work Phone: Start: 03-11-2022 Telephone encounter Irving E Ball Work Phone: [facility] 250 DO Work Phone: Start: 08-14-2021 AUDIT Irving shelby Work Phone: [facility] 250 DO Work Phone: Start: 07-06-2021 Rx Renewal Irving shelby Work Phone: [facility] 250 DO Work Phone: Start: 07-01-2021 Office outpatient vi sit 25 minutes Irving Canela Work Phone: [facility] 250 DO Work Phone: Start: 06-24-2021 Patient encounter procedure Florence Felipeenmanuel Aden BRIM IRONER HAND-MD DO [facility] Work Phone: [facility] 250 DO Work Phone: Start: 06-15-2018 End: 06-16-2018 Patient encounter procedure DEFAULT PHYSICIAN Facility:[facility] Start: 05-09-2018 End: 05-10-2018 Patient encounter procedure ANNA HOYT Facility:[facility] Procedures Date Procedure Procedure Detail Performing Clinician Start: 10-26-2023 Flexible fiberoptic sigmoidoscopy DO Levar Canela Work Phone: Start: 10-20-2023 E coli Shiga Toxin EIA DO Irving Canela Work Phone: Start: 10-20-2023 Salmonella/Shigella Screen DO Irving Coppola all Work Phone: Start: 08-29-2023 Plain chest X-ray DO Irving Canela Work Phone: Start: 07-25-2023 ECG 12-LEAD BRENDON BARON Start: 07-25-2023 Ecg routine ecg w/least 12 lds w/i&r Brendon Baron DO Work Phone: Start: 04-21-2023 Esophagogastroduodenoscopy DO Irving B all Work Phone: Start: 03-21-2023 Plain chest X-ray DO Irving Canela Work Phone: Start: 10-15-2022 Plain chest X-ray DO Irving Canela Work Phone: Start: 07-12-2022 Plain chest X-ray DO Irving Canela Work Phone: Start: 03-24-2022 Plain chest X-ray DO Irving Canela Work Phone: Start: 06-27-2020 Total colonoscopy Irving Canela Work Phone: Start: 03-12-2016 Screening for malignant neoplasm of colon Irving Canela Other Depression screening Diogo Canela Other Destructive procedure Benjam in [place] Work Phone: History of placement of stent for coronary artery disease History of heart artery stent DO Irving Canela Work Phone: Percutaneous translu igor coronary angioplasty Irving Canela Work Phone: Procedure on back Irving E Rola Work Phone: Procedure on prostate Benjam in [place] Work Phone: Plan of Treatment Date Care Activity Detail Author Start: 09-02-2029 DTaP/Tdap/Td Vaccines (2 - Td or Tdap) DTaP/Tdap/Td Vaccines (2 - Td or Tdap) [facility] Start: 07-24-2024 End: 07-24-2024 Patient encounter procedure 07/24/2024 2:00 PM EST Office Visit [facility] [address] [id number] Brendon Baron, DO [address] [place] [address] 2, [address] [place] [address] [facility] Start: 10-26-2023 [facility] Start: 09-14-2023 Patient referral [facility] Work Phone: Start: 07-20-2023 FUV, Provider: Brendon Baron, Status: Pen, Time: 10:00 AM FUV, Provider: Brendon Baron, Status: Pen, Time: 10:00 AM [facility] 250 DO Work Phone: Start: 04-21-2023 [facility] Start: 03-07-2023 FUV, Provider: Florence Norman, Status: Pen, Time: 9:00 AM FUV, Provider: Florence Norman, Status: Pen, Time: 9:00 AM [facility] 250 DO Work Phone: Start: 01-03-2023 FUV, Provider: Florence Norman, Status: Pen, Time: 11:00 AM FUV, Provider: Florence Norman, Status: Pen, Time: 11:00 AM [facility] 250 DO Work Phone: Start: 12-08-2022 BPTANISHA, Provider: LILLIANA MORALEZ BOAT HOIST OPERATOR 1,[id number], Status: Pen, Time: 11:15 AM BPTANISHA, Provider: LILLIANA MORALEZ BOAT HOIST OPERATOR 1,[id number], Status: Pen, Time: 11:15 AM [facility] 250 DO Work Phone: Start: 12-08-2022 EVENT BEBE, Provider: LILLIANA MORALEZ BOAT HOIST OPERATOR 1,[id number], Status: Pen, Time: 11:00 AM EVENT [facility]BE, Provider: LILLIANA MORALEZ BOAT HOIST OPERATOR 1,[id number], Status: Pen, Time: 11:00 AM [facility] 250 DO Work Phone: Start: 10-29-2022 [facility] Start: 10-28-[address] [facility] Start: 10-28-2022 Referral to envelope fold operator [facility] Start: 10-28-2022 [facility] Start: 10-28-2022 Plain chest X-ray XR chest 2V* [facility] Start: 10-28-2022 XR Chest [address] [facility] Start: 07-15-2022 FUV, Provider: Brendon Baron, Status: Pen, Time: 10:20 AM FUV, Provider: Brendon Baron, Status: Pen, Time: 10:20 AM -[facility] 250 DO Work Phone: Start: 01-05-2022 FUV, Provider: Brendon Baron, Status: Pen, Time: 1:30 PM FUV, Provider: Brendon Baron, Status: Pen, Time: 1:30 PM -[facility] 250 DO Work Phone: Start: 12-14-2021 FUV, Provider: Brendon Ceja, Status: Pen, Time: 8:30 AM FUV, Provider: Brendon Ceja, Status: Pen, Time: 8:30 AM -[facility] 250 DO Work Phone: Start: 11-20-2021 FUV, Provider: Brendon Ceja, Status: Pen, Time: 3:30 PM FUV, Provider: Brendon Ceja, Status: Pen, Time: 3:30 PM -[facility] 250 DO Work Phone: Start: 10-15-2021 EKG, Provider: LILLIANA MORALEZ BOAT HOIST OPERATOR 1,[id number], Status: Pen, Time: 1:00 PM EKG, Provider: LILLIANA MORALEZ BOAT HOIST OPERATOR 1,[id number], Status: Pen, Time: 1:00 PM -[facility] 250 DO Work Phone: Start: 10-07-2021 FUV, Provider: Florence Norman, Status: Pen, Time: 9:30 AM FUV, Provider: Florence Norman, Status: Pen, Time: 9:30 AM -[facility] 250 DO Work Phone: Start: 09-07-2021 HOLTER MON, Provider: LILLIANA MORALEZ BOAT HOIST OPERATOR 1,[id number], Status: Pen, Time: 9:30 AM HOLTER MON, Provider: LILLIANA MORALEZ BOAT HOIST OPERATOR 1,[id number], Status: Pen, Time: 9:30 AM [facility] 250 DO Work Phone: Start: 09-02-2021 FUV, Provider: Florence Norman, Status: Pen, Time: 9:00 AM FUV, Provider: Florence Norman, Status: Pen, Time: 9:00 AM [facility] 250 DO Work Phone: Start: 07-01-2021 FUV, Provider: Brendon Baron, Status: Pen, Time: 11:20 AM FUV, Provider: Brendon Baron, Status: Pen, Time: 11:20 AM [facility] 250 DO Work Phone: Start: 03-14-2018 Pneumococcal Vaccine: 65+ Years (2 - PCV) Pneumococcal Vaccine: 65+ Years (2 - PCV) [facility] Start: 10-14-1959 Diabetes mellitus screening Diabetes Screening [facility] Start: 1940 Lipid panel Lipid Panel [facility] Start: 1940 Medicare Annual Wellness Visit Medicare Annual Wellness Visit (AWV) [facility] Start: 1941 Thyroid stimulating hormone measurement TSH Level [facility] Bacteria identified in Stool by Culture [facility] Calculated LDL cholesterol level [facility] Cholesterol.total/Ch oles terol in HDL [Mass Ratio] in Serum or Plasma [facility] Elastase.pancreatic [Mass/mass] in Stool [facility] Glucose measurement estimated from glycated hemoglobin [facility] Hemoglobin A1c/Hemoglobin.total in Blood [facility] Patient Education [facility] Work Phone: Patient referral [facility] Work Phone: VLDL cholesterol measurement [facility] Immunizations Immunization Date Immunization Notes Care Provider Kanwal peterson 05-04-2023 influenza virus vaccine, unspecified formulation DO Irving Canela Work Phone: [facility] 05-04-2023 influenza, high dose seasonal, preservative-free Irving Canela Other [facility] Other 04-29-2022 COVID-19 Moderna (BIvalent) Irving Canela Other [facility] 04-29-2022 Moderna SARS-CoV-2 Vaccination Brendon Baron DO Work Phone: [facility] Work Phone: 04-15-2022 Fluad Quadrivalent 0 .5 ML Intramuscular Prefilled Syringe Irving Canela Work Phone: [facility] 250 DO Work Phone: 04-15-2022 influenza virus vaccine, split virus (incl. purified surface antigen) Irving Canela Other [facility] Other 04-15-2022 influenza virus vaccine, unspecified formulation DO Irving Canela Work Phone: [facility] 04-15-2022 influenza, injectabl e, quadrivalent, preservative free Brendon Baron DO Work Phone: [facility] Work Phone: 03-27-2022 influenza virus vaccine, unspecified formulation DO Irving Canela Work Phone: [facility] 03-27-2022 influenza, high dose seasonal, preservative-free Irving Canela Work Phone: [place] [address] DO Work Phone: Comment on above: Series: 04-17-2021 Moderna COVID-19 Vaccine 100 MCG/0.5ML Intramuscular Suspension Irving Canela Work Phone: [facility] 03-30-2021 influenza virus vaccine, split virus (incl. purified surface antigen) Irving Canela Other [facility] Other 03-30-2021 influenza virus vaccine, unspecified formulation DO Irving Canela Work Phone: [facility] 08-14-2020 Moderna COVID-19 Vaccine 100 MCG/0.5ML Intramuscular Suspension Irving Canela Work Phone: [facility] 07-14-2020 Moderna COVID-19 Vaccine 100 MCG/0.5ML Intramuscular Suspension Irving Canela Work Phone: [facility] 04-14-2020 influenza virus vaccine, split virus (incl. purified surface antigen) Irving Canela Other [facility] Other 04-14-2020 influenza virus vaccine, unspecified formulation DO Irving Canela Work Phone: [facility] 03-07-2019 influenza, high dose seasonal, preservative-free Brendon Baron DO Work Phone: [facility] Work Phone: 03-07-2019 Seasonal trivalent influenza vaccine, adjuvanted, preservative free Irving Canela Work Phone: [facility] 250 DO Work Phone: 06-24-2018 zoster vaccine recombinant Irving Canela Work Phone: [facility] 250 DO Work Phone: 04-11-2018 influenza, injectabl e, quadrivalent, preservative free Irving Canela Work Phone: [facility] 250 DO Work Phone: 03-08-2018 influenza virus vaccine, split virus (incl. purified surface antigen) Irving Canela Other [facility] Other 03-08-2018 influenza virus vaccine, unspecified formulation DO Irving Canela Work Phone: [facility] 03-14-2017 influenza virus vaccine, split virus (incl. purified surface antigen) Irving Canela Other [facility] Other 03-14-2017 influenza virus vaccine, unspecified formulation DO Irving Canela Work Phone: [facility] 03-14-2017 influenza, high dose seasonal, preservative-free Irving Canela Work Phone: [facility] 250 DO Work Phone: 03-14-2017 pneumococcal polysaccharide vaccine, 23 valent Irving Canela Work Phone: [facility] 03-12-2016 influenza virus vaccine, split virus (incl. purified surface antigen) Irving Canela Other [facility] Other 03-12-2016 influenza virus vaccine, unspecified formulation DO Irving Canela Work Phone: [facility] 03-12-2016 pneumococcal conjuga te vaccine, 13 valent Irving Canela Other [facility] 03-26-2015 influenza virus vaccine, split virus (incl. purified surface antigen) Irving Canela Other [facility] Other 03-26-2015 influenza virus vaccine, unspecified formulation DO Irving Canela Work Phone: [facility] 11-12-2014 zoster vaccine, live Benjami thomas Canela Work Phone: [facility] 04-03-2014 tetanus and diphther ia toxoids, adsorbed, preservative free, for adult use (5 Lf of tetanus toxoid and 2 Lf of diphtheria toxoid) Irving Canela Other [facility] Payers Date Payer Category Payer Medicare [id number] 2006 Medicare MEDICARE MEDICAR E PART A AND B [id number] 2006-Present [address] [place] [address] [id number] 1959 Medicare [id number] 1959 Private Health Insurance [id number] 1959 Self-pay [id number] 1941 Unknown [id number] 2.16.840.1.335285.3.579.2 .647 1941 Unknown [id number] 2.16.840.1.879122.3.579.2 .647 1941 Unknown [id number] 2.16.840.1.244364.3.579.2 .593 1941 Unknown [id number] 2.16.840.1.567792.3.579.2 .593 1941 Unknown [id number] 2.16.840.1.846165.3.579.2 .593 1941 Unknown [id number] 2.16.840.1.568994.3.579.2 .593 1941 Unknown [id number] 2.16.840.1.538657.3.579.2 .593 1941 Unknown [id number] 2.16.840.1.753497.3.579.2 .593 1941 Unknown [id number] 2.16.840.1.305199.3.579.2 .593 1941 Unknown [id number] 2.16.840.1.920787.3.579.2 .593 1941 Unknown [id number] 2.16.840.1.230279.3.579.2 .593 1941 Unknown [id number] 2.16.840.1.436858.3.579.2 .593 1941 Unknown [id number] 2.16.840.1.788851.3.579.2 .593 1941 Unknown [id number] 2.16.840.1.693440.3.579.2 .593 1941 Unknown [id number] 2.16.840.1.879701.3.579.2 .593 1941 Unknown [id number] 2.16.840.1.916776.3.579.2 .356 1941 Unknown [id number] 2.16.840.1.378219.3.579.2 .356 1941 Unknown [id number] 2.16.840.1.510125.3.579.2 .356 1941 Unknown [id number] 2.16.840.1.967510.3.579.2 .356 1941 Unknown [id number] 2.16.840.1.877172.3.579.2 .356 1941 Unknown [id number] 2.16.840.1.211276.3.579.2 .356 1941 Unknown [id number] 2.16.840.1.072376.3.579.2 .356 1941 Unknown [id number] 2.16.840.1.927040.3.579.2 .727 1941 Unknown [id number] 2.16.840.1.047700.3.579.2 .1244 1941 Unknown [id number] 2.16.840.1.718661.3.579.2 .1259 1941 Unknown [id number] 2.16.840.1.978722.3.579.2 .1259 1941 Unknown [id number] 2.16.840.1.033866.3.579.2 .1259 1941 Unknown [id number] 2.16.840.1.650468.3.579.2 .1259 Medicare [id number] Private Health Insurance [facility] [id number] Unknown Unknown [id number] 2.16.840.1.836444.3.579.2 .593 Unknown [id number] 2.16.840.1.123150.3.579.2 .531 Unknown [id number] 2.16.840.1.246428.3.579.2 .531 Unknown [id number] 2.16.840.1.815544.3.579.2 .531 Unknown [id number] 2.16.840.1.500967.3.579.2 .531 Unknown [id number] 2.16.840.1.257263.3.579.2 .531 Social History Date Type Detail Facility Start: 07-25-2023 Consumes alcohol occasionally Consumes alcohol occasionally -[facility] 250 DO Work Phone: Comment on above: 1-2 cups daily; quit 1995ish; Start: 03-10-2022 End: 10-29-2022 Tobacco smoking status [facility] Never smoked tobacco (finding) [facility] Start: 1940 Sex Assigned At Male F [facility] Start: 07-25-2023 Sex Assigned At N [facility] Other Start: 04-21-2023 End: 10-26-2023 Tobacco smoking status DEIS Ex-smoker (finding) [facility] History of tobacco use Current smoker [facility] Work Phone: History of tobacco use Cigarette Smoker [facility] Work Phone: Start: 07-25-2023 Alcohol intake Current drinke r of alcohol (finding) [facility] Work Phone: Start: 06-24-2023 Alcohol Comment occasional [facility] Work Phone: Start: 1940 Sex Assigned At Not on file [facility] Work Phone: Start: 07-15-2023 End: 07-25-2023 Exposure to SARS-CoV-2 (event) Not sure [facility] Goals Date Patient Goal Desired Activity /State Clinical Notes 12-30-2021 to 10-17-2023 Note Date & Type Note Facility 10-17-2023 Evaluation note Authored October 17, 2023 2:5 5pm 83-year-old man referred to the GI clinic for evaluation of diarrhea. + Diarrhea x 1 year Colonoscopy in 03/2023 was normal. However colonic biopsies were not done Duodenal biopsies in 03/2023 was negative for celiac. - Will get Labs including TSH, ESR, CRP, fecal calprotectin HIV ab, fecal elastase and stool infectious workup -Will arrange for flex sig to get random colonic biopsies to assess for microscopic colitis [facility] Work Phone: 1(160) 924-316702-08-2024 Evaluation note* Encounter Date Diagnosis Assessment Notes Treatment Notes Treatment Clinical Notes Jul, ASHD (arteriosclerotic heart disease) (ICD-10 - I25.10) This patient is stable without activity related CP, dyspnea or lightheadedness. They are instructed to continue exercise and AHA diet plan. Continue secondary prevention measures. Jul, Paroxysmal atrial fibrillation (ICD-10 - I48.0) This patient is in NSR or rate controlled. This patient is anticoagulated to prevent thromboembolic events. They are maintaining regular scheduled appts with their envelope fold operator.TT Jul, Primary hypertension (ICD-10 - I10) This patient is instructed to consume a healthy, low-fat, low-salt diet. They are also encouraged to continue exercise to achieve/maintain a normal BMI. Patient is instructed on home BP measurements: - rest for 5 minutes w/o talking.- positioned w/ feet on floor and arm supported.- average best 2/3 readings w/ goal < 135/85.- update office w/ home readings in 2 weeks. Jul, Hyperlipidemia type II (ICD-10 - E78.01) Instructed on diet and exercise with continued statin therapy.Discussed the beneficial effects of lowering cholesterol in reducing the risk for cerebrovascular and cardiovascular disease. Jul, Irritable bowel syndrome with diarrhea (ICD-10 - K58.0) INstructed on health, high fiber diet. INstructed to continue Metamucil. Avoid juices, milk and alcohol Jul, Bradycardia (ICD-10 - R00.1) Asymptomatic. Reduced Amiodarone to 100mg M/W/F Denies lightheadedness. No change necessasry Jul, Iron deficiency anemia (ICD-10 - D50.9) Completed GI evaluation and found to have esophagitis and duodenitis. COmpleted 3 mo course of PPI. He denies any further epigastric discomfort Jul, Overweight (ICD-10 - E66.3) This patient has been instructed on a low-fat, high-fiber diet. They are instructed to reduce calories, portion sizes and snacks. It is recommended that they exercise for 30 minutes, 3-5 times weekly. Jul, Primary insomnia (ICD-10 - F51.01) Healthy diet and exercise. COnsistent sleep routine. Avoid phone, TV, exercise and eating prior to HS [facility] Other 01-29-2024 History of Present illness Narrative* Brendon Baron, DO - 07/25/2023 1:00 PM EST Subjective Valentín Buckner is a 82 y.o. male Chief Complaint Annual Exam 82-year-old gentleman returns for follow-up and is doing well he has no anginal complaints, heart failure or recurrent hospitalizations. He status post non-ST elevation CO May 2021, with a history of ASHD and prior three-vessel PCIin Alexander. 1 of those events was for an inferior CO with revascularization of the RCA. Patient is notably severely allergic to Plavix and Effient. Catheterization from 06/16 is reviewed revealing patent obtuse marginal branch stent with second OM branch stenosis at the origin, bifurcating with the above-mentioned stent and we treated this conservatively. He has no history of stroke or bleeding disorder cancer peripheral vascular disease Has had mild paroxysmal atrial fibrillation, successfully treated with low-dose amiodarone, Eliquiswith no bleeding or thromboembolic events recurrence of A. fib current ECG reveals sinus bradycardia at a rate of 44 with a QT corrected interval 401 ms with first-degree AV block. Current amiodaronedosing is anywhere between 100 to 200 mg Tuesday his will call to confirm his dosing. Recommendations, continue current therapies, reviewed dosing of amiodarone with upon phone call follow-up, will follow-up in 8 months Review of Systems All other systems reviewed and are negative. Visit Vitals BP 102/70 (BP Location: Left arm, Patient Position: Sitting) Pulse (!) 44 Ht 1.753 m (5' 9 ) Wt 92.1 kg (203 lb) BMI 29.98 kg/m Smoking Status Former BSA 2.12 m EKG done in office today Objective Physical Exam Constitutional: Appearance: Normal appearance. He is normal weight. HENT: Nose: Nose normal. Neck: Vascular: No carotid bruit. Cardiovascular: Rate and Rhythm: Normal rate. Pulses: Normal pulses. Heart sounds: Normal heart sounds. Pulmonary: Effort: Pulmonary effort is normal. Abdominal: General: Bowel sounds are normal. Palpations: Abdomen is soft. Genitourinary: Rectum: Normal. Musculoskeletal: General: Normal range of motion. Cervical back: Normal range of motion. Right lower leg: No edema. Left lower leg: No edema. Skin: General: Skin is warm and dry. Neurological: General: No focal deficit present. Mental Status: He is alert. Psychiatric: Mood and Affect: Mood normal. Behavior: Behavior normal. Thought Content: Thought content normal. Judgment: Judgment normal. Current Medications Current Outpatient Medications: amiodarone (Pacerone) 200 mg tablet, Take 1 tablet (200 mg) by mouth. Take one tablet by mouth every Tue, Tue, Tue, Disp: , Rfl: apixaban (Eliquis) 5 mg tablet, Take 1 tablet (5 mg) by mouth 2 times a day., Disp: , Rfl: aspirin 81 mg EC tablet, Take 1 tablet (81 mg) by mouth. Take one tablet by mouth every Tue, Tue, Tue, Disp: , Rfl: atorvastatin (Lipitor) 40 mg tablet, Take 1 tablet (40 mg) by mouth once daily at bedtime., Disp: ,Rfl: cholecalciferol (Vitamin D-3) 50 mcg (2,000 unit) capsule, Take 1 capsule (50 mcg) by mouth once daily., Disp: , Rfl: isosorbide mononitrate ER (Imdur) 30 mg 24 hr tablet, Take 1 tablet (30 mg) by mouth once daily., Disp: , Rfl: loratadine 10 mg capsule, Take 1 tablet by mouth once daily., Disp: , Rfl: pantoprazole (ProtoNix) 40 mg EC tablet, Take 1 tablet (40 mg) by mouth once daily., Disp: , Rfl: zinc gluconate 50 mg tablet, Take 1 tablet (50 mg) by mouth once daily., Disp: , Rfl: Scribe Attestation By signing my name below, Janie Seay LPN , Karenibmariel attest that this documentation has been prepared under the direction and in the presence of Cassandra Baron DO. Assessment/Plan 1. Bradycardia 2. H/O non-ST elevation myocardial infarction (NSTEMI) 3. Paroxysmal atrial fibrillation (CMS/HCC) 4. S/P PTCA (percutaneous transluminal coronary angi[facility]) [facility] 1(730) 217-859801-29-2024 Instructions* Patient Instructions* Janie Delgado LPN - 07/25/2023 1:00 PM EST Please bring all medicines, vitamins, and herbal supplements with you when you come to the office. Prescriptions will not be filled unless you are compliant with your follow up appointments or have a follow up appointment scheduled as per instruction of your physician. Refills should be requested at the time of your visit. 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 Tylenol as needed Apr, Strain of right rotator cuff capsule, initial encounter (ICD-10 - S46.011A) Ice, heat and ROM exercises. Tylenol, Lidocaine and Voltaren Gel. Call if pain increases. [facility] Other 11-08-2023 Evaluation note* Encounter Date Diagnosis Assessment Notes Treatment Notes Treatment Clinical Notes Apr, ASHD (arteriosclerotic heart disease) (ICD-10 - I25.10) This patient is stable without activity related CP, dyspnea or lightheadedness. They are instructed to continue exercise and AHA diet plan. Continue secondary prevention measures. Apr, Paroxysmal atrial fibrillation (ICD-10 - I48.0) This patient is in NSR or rate controlled. This patient is anticoagulated to prevent thromboembolic events. They are maintaining regular scheduled appts with their envelope fold operator. Apr, Primary hypertension (ICD-10 - I10) This patient is instructed to consume a healthy, low-fat, low-salt diet. They are also encouraged to continue exercise to achieve/maintain a normal BMI. Apr, Hyperlipidemia type II (ICD-10 - E78.01) Instructed on diet and exercise with continued statin therapy.Discussed the beneficial effects of lowering cholesterol in reducing the risk for cerebrovascular and cardiovascular disease. Apr, Irritable bowel syndrome with diarrhea (ICD-10 - K58.0) Diet instructions and exercise. Reassured that all is normal s/p colonoscopy Apr, Bradycardia (ICD-10 - R00.1) Asymptomatic w/o CP, dyspnea or lightheadedness Cardiology decreased AMiodarone to 100mg M/W/F Apr, Iron deficiency anemia (ICD-10 - D50.9) Due to donating blood and esophagitis. Much improved, no longer taking Fe supplements. Continue PPI for now Apr, Overweight (ICD-10 - E66.3) This patient has been instructed on a low-fat, high-fiber diet. They are instructed to reduce calories, portion sizes and snacks. It is recommended that they exercise for 30 minutes, 3-5 times weekly. Apr, Other Normal [facility] Encounter Date Diagnosis Assessment Notes Treatment Notes Treatment Clinical Notes Feb, Primary hypertension (ICD-10 - I10) [facility] Other 09-05-2023 Evaluation note* Encounter Date Diagnosis Assessment Notes Treatment Notes Treatment Clinical Notes Feb, Iron deficiency anemia (ICD-10 - D50.9) Feb, GERD (gastroesophageal reflux disease) (ICD-10 - K21.9) Patient reports nocturnal GERD and is not currently taking any medication to relieve this Paitent is to have EGD scheduled and prep instructions given today Risks and benefits of procedure explained to patient; patient verbalizes understanding. Feb, Frequent bowel movements (ICD-10 - R19.4) Patient reports multiple bowel movements daily that are very soft Patient reports that he never can completely evacuate his bowels Patient is to have colonosocopy scheduled today and prep instructions given today Risks and benefits of procedure explained to patient; patient verbalizes understanding. [facility] Other 08-08-2023 Evaluation note* Encounter Date Diagnosis Assessment Notes Treatment Notes Treatment Clinical Notes Jan, ASHD (arteriosclerotic heart disease) (ICD-10 - I25.10) This patient is stable without activity related CP, dyspnea or lightheadedness. They are instructed to continue exercise and AHA diet plan. Jan, Paroxysmal atrial fibrillation (ICD-10 - I48.0) This patient is in NSR. This patient is anticoagulated to prevent thromboembolic events. They are maintaining regular scheduled appts with their envelope fold operator. No obvious bleeding complications Jan, Primary hypertension (ICD-10 - I10) This patient is instructed to consume a healthy, low-fat, low-salt diet. They are also encouraged to continue exercise to achieve/maintain a normal BMI. Jan, Hyperlipidemia type II (ICD-10 - E78.01) Instructed on diet and exercise with continued statin therapy.Discussed the beneficial effects of lowering cholesterol in reducing the risk for cerebrovascular and cardiovascular disease. Jan, Irritable bowel syndrome with diarrhea (ICD-10 - K58.0) Healthy, high fiber diet. Stopped PPI and Fe Continue Metamucil f/u GI Jan, Bradycardia (ICD-10 - R00.1) Adjusted Amiodarone to 100mg qod HR remains in 50s but no adverse effects on endurance or ADL Jan, Anemia, unspecified type (ICD-10 - D64.9) Fe deficiency - donates blood - AC - no obvious GI source of bleeding - recheck labs - GI referral later this month [facility] Other 05-09-2023 Evaluation note* Encounter Date Diagnosis Assessment Notes Treatment Notes Treatment Clinical Notes October, ASHD (arteriosclerotic heart disease) (ICD-10 - I25.10) This patient is stable without activity related CP, dyspnea or lightheadedness. They are instructed to continue exercise and AHA diet plan. October, Paroxysmal atrial fibrillation (ICD-10 - I48.0) This patient is in NSR or rate controlled. This patient is anticoagulated to prevent thromboembolic events. They are maintaining regular scheduled appts with their envelope fold operator. October, Primary hypertension (ICD-10 - I10) This patient is instructed to consume a healthy, low-fat, low-salt diet. They are also encouraged to continue exercise to achieve/maintain a normal BMI. Patient is instructed on home BP measurements: - rest for 5 minutes w/o talking- positioned w/ feet on floor and arm supported- average best 2/3 readings w/ goal < 135-85 October, Hyperlipidemia type II (ICD-10 - E78.01) Instructed on diet and exercise with continued statin therapy.Discussed the beneficial effects of lowering cholesterol in reducing the risk for cerebrovascular and cardiovascular disease. October, Irritable bowel syndrome with diarrhea (ICD-10 - K58.0) Reassured, heatlh/high fiber diet. No N/V, melena or hematochezia October, Bradycardia (ICD-10 - R00.1) Secondary to Amiodarone. Recently decreased to 100mg qod. F/U Cardiology [facility] Other 05-05-2023 Evaluation note* Encounter Date Diagnosis Assessment Notes Treatment Notes Treatment Clinical Notes October, Paroxysmal atrial fibrillation (ICD-10 - I48.0) [facility] Other 05-02-2023 Evaluation note* Encounter Date Diagnosis Assessment Notes Treatment Notes Treatment Clinical Notes October, Medicare annual wellness visit, subsequent (ICD-10 - Z00.00) Personalized health advice was given to the beneficiary including a written plan for screenings discussed and provided. Advanced care planning reviewed and/or information given as requested. Additional counseling was provided here today in regards to, [ ]. The above visit was performed by [ ], under direct supervision of [ ]. Document reviewed and amended by provider signed below. Healthy diet and exercise. Reviewed age-appropriate preventive testing recommended. October, ASHD (arteriosclerotic heart disease) (ICD-10 - I25.10) This patient is stable without activity related CP, dyspnea or lightheadedness. They are instructed to continue exercise and AHA diet plan. October, Essential hypertension (ICD-10 - I10) This patient is instructed to consume a healthy, low-fat, low-salt diet. They are also encouraged to continue exercise to achieve/maintain a normal BMI. October, Paroxysmal atrial fibrillation (ICD-10 - I48.0) This patient is in NSR or rate controlled. This patient is anticoagulated to prevent thromboembolic events. They are maintaining regular scheduled appts with their envelope fold operator. October, Hyperlipidemia type II (ICD-10 - E78.01) Instructed on diet and exercise with continued statin therapy.Discussed the beneficial effects of lowering cholesterol in reducing the risk for cerebrovascular and cardiovascular disease. October, Gastroesophageal reflux disease with esophagitis without hemorrhage (ICD-10 - K21.00) Diet instructions: Smaller portions, avoid eating and laying flat, avoid eating or drinking prior to bedtime. Weight loss. Resume PPI Referral to GI to consider EGD October, Iron deficiency anemia due to chronic blood loss (ICD-10 - D50.0) Colonoscopy 2020 w/o abnormal findings. EGD to r/o PUD, gastritis, esophagitis etc Malabsorption due to PPI ? [facility] Other 04-07-2023 Evaluation note* Encounter Date Diagnosis Assessment Notes Treatment Notes Treatment Clinical Notes Sep, Essential hypertensi on (ICD-10 - I10) This patient is instructed to consume a healthy, low-fat, low-salt diet. They are also encouraged to continue exercise to achieve/maintain a normal BMI. Sep, ASHD (arteriosclerot ic heart disease) (ICD-10 - I25.10) This patient is stable without activity related CP, dyspnea or lightheadedness. They are instructed to continue exercise and AHA diet plan. Sep, Paroxysmal atrial fibrillation (ICD-10 - I48.0) This patient is in NSR or rate controlled. This patient is anticoagulated to prevent thromboembolic events. They are maintaining regular scheduled appts with their envelope fold operator. Sep, Iron deficiency anem ia due to chronic blood loss (ICD-10 - D50.0) Fe supplements qod. Recheck Ferritin, Fe, H/H in October. MOnitor for ongoing bleeding Sep, Rectal bleeding (ICD-10 - K62.5) This has resolved. AC continued. Avoid straining, healthy high fiber diet Metamucil Sep, Adenomatous polyp of descending colon (ICD-10 - D12.4) Last scope 2 years ago. Recent change in bowel habits to diarrhea. Dietary changes, d/c PPI, start Metamucil May require referral back to GI Sep, Gastroesophageal reflux disease without esophagitis (ICD-10 - K21.9) Asymptomatic Diet instructions Hold PPI and monitor for recurrent symptoms Sep, Irritable bowel syndrome with diarrhea (ICD-10 - K58.0) Healthy diet Start Metamucil May trial Levsin if continues Sep, Hyperlipidemia type II (ICD-10 - E78.01) Diet and exercise with continued statin therapy. [facility] Other 03-09-2023 Evaluation note* Encounter Date Diagnosis Assessment Notes Treatment Notes Treatment Clinical Notes Aug, Salpingitis of both eustachian tubes (ICD-10 - H68.003) Flonase bid x 5 days, than qd. Valsalva multiple times No improvement, may require referral to ENT Aug, Fecal urgency (ICD-10 - R15.2) Diet instructions. Restart Metamucil [facility] Other 02-22-2023 Evaluation note* Encounter Date Diagnosis Assessment Notes Treatment Notes Treatment Clinical Notes Jul, Paroxysmal atrial fibrillation (ICD-10 - I48.0) This patient is in NSR. This patient is anticoagulated to prevent thromboembolic events. They are maintaining regular scheduled appts with their envelope fold operator. Jul, ASHD (arteriosclerot ic heart disease) (ICD-10 - I25.10) This patient is stable without activity related CP, dyspnea or lightheadedness. They are instructed to continue exercise and AHA diet plan. Jul, Essential hypertensi on (ICD-10 - I10) This patient is instructed to consume a healthy, low-fat, low-salt diet. They are also encouraged to continue exercise to achieve/maintain a normal BMI. Jul, Hyperlipidemia type II (ICD-10 - E78.01) Diet and exercise with continued statin therapy. Jul, Lumbar spondylosis (ICD-10 - M47.816) The patient is instructed to avoid bending, twisting or lifting. They are to use intermittent heat and ice as needed. They may schedule a massage or gentle manipulation. They may safely use Tylenol as needed. Reviewed his MRI - offered referral to PT Jul, Gastroesophageal reflux disease with esophagitis without hemorrhage (ICD-10 - K21.00) Diet instructions: Smaller portions, avoid eating and laying flat, avoid eating or drinking prior to bedtime. Weight loss. Jul, Irritable bowel syndrome with diarrhea (ICD-10 - K58.0) Diet instructions, add Metamucl [facility] Other [id number] NoteCONSULTATION CONSULTATION DATE: 05/13/2022 This is a pleasant 81-year-old gentleman who returned to the clinic status post bilateral RFAs of L2, L3 and L4, L5 completed on 04/13/2022. The patient thus far has received 75% relief. He feels that his endurance and physical activity and exercise has increased. Yesterday he worked in the yard all day, tolerated it well. For the first time she is able to sleep in his bed instead of the recliner. His pain is 3 out of 10 today. It is aggravated by twisting, pushing, pulling, lifting and bending. Medications include baby aspirin, vitamin regimen and Tylenol. He does take Eliquis and avoids NSAIDs. REVIEW OF SYSTEMS, PAST MEDICAL HISTORY, ALLERGIES AND IMAGES: Have been reviewed and noted in the chart. PHYSICAL EXAM: VITAL SIGNS: Blood pressure 133/71, heart rate is 46, temperature is 96.4. Height is 5'9 , weighs 98.5 kg. GENERAL APPEARANCE: Pleasant, appropriate and in no acute distress. FOCUSED EXAM: BACK: Range of motion is functional in lateral rotation and flexion/extension. Paravertebral muscles are non-spasmodic. Upon compression to the lumbar facets, no spinoaxial pain is reproduced. Cristopher's point is nontender bilaterally. MUSCULOSKELETAL: Motor is 4 out of 5 bilaterally, does not use assistive device to ambulate. No muscle weakness noted bilaterally. NEUROLOGICAL: Radicular sensory is intact. The patient is cognitively intact. Patellar and Achilles are +1 bilaterally. DIAGNOSIS: Lumbar degenerative disease, lumbar spondylosis, chronic lower back pain. PLAN: I did recommend the patient use Voltaren gel mixed with Vicks VapoRub to lower back and hips as needed. The patient did inquire about back stretches and those were demonstrated for today. I did recommend the use of heat twice a day as well to help his arthritic stiffness. At this point the patient will return to the clinic on the PRN basis and the patient is in agreement to this. [facility] [id number] NoteCONSULTATION CONSULTATION DATE: 03/25/2022 HISTORY OF PRESENT ILLNESS: This is a very pleasant, 81-year-old gentleman, returning to the clinic status post #2 bilateral MBB of L2, L3 and L4, L5 completed on 03/09/2022 that afforded him 80% relief for three days. Today, he rates his pain as a 6/10 in the morning, which is his worst time. His pain is aggravated by lying in the supine position at night. The patient has trouble sleeping due to his night time pain only. During the day and in upright position, his pain is about a 3-4/10. Medications include the Mirapex 0.5 mg q. h.s., Tylenol, aspirin and Eliquis. He is unable to take NSAIDs secondary to stage 3 kidney disease. The patient was placed on Mirapex in the past, but stated he only took it two nights. He stated it did not help, but admits he did not give it a chance. He was educated on this medication by Dr. Sim at his last office visit. Since the procedure, patient states he is sleeping somewhat better initially. He denies any vasomotor weakness or overt radicular pain. Patient's REVIEW OF SYSTEMS / PAST MEDICAL HISTORY / ALLERGIES and IMAGES have been reviewed and they are noted on the chart. PHYSICAL EXAM: VITAL SIGNS: Blood pressure 143/70, heart rate is 53. Temperature is 97.3. He is 5'9, weigh 88 kg. GENERAL IMPRESSION: Pleasant, appropriate, no acute distress. FOCUSED EXAM: Back is guarded in lateral rotation and flexion/extension. Paravertebral muscles are non-spasmodic. Reproduction of patient's spinal axial pain noted to direct compression along the posterior elements of the lumbar facets, but does not extend below the knee. Fullness palpated along the facets indicative of facet arthropathy, lumbar spondylosis at L2, L3 and L4, L5 bilaterally. Cristopher's point is non-tender. Negative FABERs and compression. MUSCULOSKELETAL: Muscle atrophy noted bilateral lower extremities diffusely. Motor is intact, 4/5 bilaterally. Patient walks with a stable, antalgic gait. Does not use an assistive device. NEUROLOGICAL: Radicular sensory is intact. Negative polyneuropathy. DIAGNOSIS: Lumbar degenerative disc, lumbar spondylosis, spinal axial lower back pain. PLAN: We will move forward with the radiofrequency ablation bilateral of L2, L3 and L4, L5. We will also get approval to hold his Eliquis prior to the procedure. I did recommend the patient hold off on the inversion table until post procedure, as this did increase his pain. He is to continue with a vitamin regimen, which he is compliant with, as well as a menthol heat rub and heat application. Patient agrees with the plan of care and would like to proceed. He will be followed up in the clinic post procedure.[facility] [id number] NoteCONSULTATION CONSULTATION DATE: 02/09/2022 CHIEF COMPLAINT: Low back pain. HISTORY OF PRESENT ILLNESS: This is a very pleasant, 81-year-old gentleman, who has chronic pain. The patient was unable to sleep in bed for the past 3-4 months. We performed a lumbar medial branch block at the level of L2, 3 and 4, 5. For the first time, the patient has been able to sleep in bed and in a comfortable manner. The patient has stage 3 kidney disease. The patient takes Tylenol 1000 mg on a p.r.n. basis. The patient enjoys golfing; however, finds this difficult, especially the rotational component. Sitting down in the recliner is the most comfortable position for the patient. Laying down aggravates the patient's pain. The patient is a very active, very vital individual, who has pain in the middle of the night. The patient was started on Mirapex; however, due to misunderstandings, has not started it as of yet. The patient is accompanied by his . The patient's PAST MEDICAL HISTORY / SURGICAL HISTORY / REVIEW OF SYSTEMS are noted on the chart, along with the MEDICATION LIST, ALLERGIES and RADIOLOGICAL IMAGES. PHYSICAL EXAMINATION: GENERAL: Upon physical examination, this is a pleasant, cooperative gentleman, who does not appear to be in any acute distress. VITAL SIGNS: Stable at 131/72, with a heart rate of 45. At a height of 5'9 , the patient weighs 87 kg. HEAD: Atraumatic, normocephalic. NECK: No crepitus is noted. HEART: Regular rate. LUNGS: Normal expansion. No audible wheezing. ABDOMEN: Soft, non-distended. BACK: Paravertebral tightness is present. Extension, compression, direct palpation aggravate a component of the patient's pain symptomatology. EXTREMITIES: No pedal edema. MUSCULOSKELETAL: Intact in the lower extremities at 5/5 bilaterally. IMPRESSION: Low back pain, lumbar disc displacement, lumbar spondylosis, responsive with 90+% improvement of his pain secondary to the first diagnostic medial branch block. PLAN: We will repeat the diagnostic medial branch block at the level of L2, 3 and 4, 5. Education was done with regards to taking Mirapex on a regular basis. The patient understands and would like to proceed. CC: Irving Canela D.O.[facility]07-26-2022 NoteCONSULTATION CONSULTATION DATE: 01/19/2022 CHIEF COMPLAINT: Chronic low back pain. HISTORY OF PRESENT ILLNESS: This is a very pleasant, 81-year-old gentleman, who is accompanied by his . The patient has had chronic low back pain. The patient is a very active individual. 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 The patient has stage 3 kidney disease and, as such, cannot take NSAIDs. He is taking Tylenol 1000 mg on a p.r.n. basis. The patient states that early in the morning is when he has a problem. The patient states laying down aggravates the patient's pain, where he has significant difficulty in getting out of bed, to the patient where the patient sleeps in a recliner. Heavy lifting also aggravates the patient's pain. Sleep disturbances are noted by the patient. The patient is also an avid golfer. The patient, approximately a year ago, was started on anticoagulant, and currently he is on Eliquis 5 mg b.i.d. as prescribed by Dr. Ceja. The patient's PAST MEDICAL HISTORY / SURGICAL HISTORY / REVIEW OF SYSTEMS are noted on the chart, along with the MEDICATION LIST / ALLERGIES and the MRI, which was reviewed in office today. PHYSICAL EXAM: GENERAL: Upon physical examination, this is a pleasant, cooperative gentleman who does not appear to be in any acute distress. VITAL SIGNS: Stable at 134/64 with a heart rate of 87. At a height of 5'9 , the patient weighs 197 pounds. HEAD: Atraumatic, normocephalic. NECK: Crepitus is noted along the cervical spine. HEART: Regular rate. LUNGS: Normal expansion. ABDOMEN: Soft.. BACK: Loss of lumbar lordosis is noted. Significant paravertebral tightness is present. Extension, compression, direct palpation along the posterior elements aggravate and reproduce the patient's pain symptomatology concordant with facet arthropathy, lumbar spondylosis. EXTREMITIES: Well developed muscles are noted. The patient has a slight drift in his right lateral aspect of his foot. The patient favors it; however, the motor strength is still maintained at 4+/5 bilaterally. NEUROLOGICALLY: Hypoesthesia is present along the L5 distribution. PSYCHIATRICALLY: The patient is distraught with regards to this interference with regards to his pain and the chronicity. The patient also describes generalized muscle ache and joint aches; however, notes that this had increased subsequent to increasing of the statin medications by Dr. Ceja. IMPRESSION: Current working diagnosis is chronic low back pain, lumbar degenerative disc disease, lumbar spondylosis, generalized myalgia and joint pain, possibly secondary to statin effect. PLAN: Education was done with regards to the patient and his . The patient will apply a heat rub to his low back. The patient will be scheduled for diagnostic medial branch block under fluoroscopy. With regards to the statin, we instructed the patient to discuss this with Dr. Ceja and/or Dr. Levar Canela, and possibly look to reduce the statin to 20 mg from 40 mg, with the goal to be able to improve the myofascial pain and also the generalized arthritic pain. The patient and his understand and would like to proceed. CC: Brendon Ceja M.D. Irving Canela D.O.[facility] [id number] NotePROCEDURE: XR HIP RT 2 3V W PELVIS HISTORY: Pain in right hip joint COMPARISON: None. FINDINGS: BONES:Mild narrowing of the superior hip joint space on the right eighth at its lateral aspect. No fracture, dislocation, bone lesion. SOFT TISSUES:Numerous surgical clips within the pelvis. EFFUSION:None visible. OTHER: Negative. IMPRESSION: 1. Mild degenerative changes of the right hip joint. No acute bone abnormality. Electronically authenticated by: LYNDA BYNUM Date: 2021-12-30 11:33[facility] noteNo assessment information [facility] Work Phone: Evaluation noteNo InformationNort [facility] Other Evaluation note* Diagnosis Onset Date Resolution Status Coronary artery disease acut e Dizziness acute Dyspnea acute Essential hypertension acute History of heart artery stent acute Hyperlipidemia acute Pre-syncope acute [facility] Work Phone: Evaluation note* Diagnosis Onset Date Resolution Status Change in bowel function acu te [facility] Work Phone: Evaluation note* Diagnosis Bradycardia Other specified cardiac dysrhythmias H/O non-ST elevation myocardial infarction (NSTEMI) Paroxysmal atrial fibrillation (CMS/HCC) Atrial fibrillation S/P PTCA (percutaneous transluminal coronary angioplasty) Postsurgical percutaneous transluminal coronary angioplasty status documented in this encounter [facility] Work Phone: Evaluation note* Diagnosis Onset Date Resolution Status ASHD (arteriosclerotic heart disease) acute Essential hypertension acute Gastroesophageal reflux dise ase with esophagitis without hemorrhage acute Iron deficiency anemia due to chronic blood loss acute Paroxysmal atrial fibrillation acute [facility] Work Phone: Evaluation note* Diagnosis Onset Date Resolution Status ASHD (arteriosclerotic heart disease) acute Essential hypertension acute Gastroesophageal reflux dise ase with esophagitis without hemorrhage acute Iron deficiency anemia due to chronic blood loss acute Paroxysmal atrial fibrillation acute Abdominal pain acute Iron deficiency anemia acute Irritable bowel syndrome with diarrhea acute Abdominal pain acute Fecal urgency acute Gas bloat syndrome acute Groin pain acute Iron deficiency anemia due to chronic blood loss acute Loose stools acute [facility] Work Phone: History and physical note Author Karol Sage [facility] October 28, 2022 11:21pm Note Date/Time October 28, 2022 11:01p [place] [facility] [address] [place] [address] Hospitalist H&P Signed Patient: Valentín Buckner MR#: [id number] : 1940 Acct:[id number] Age/Sex: 82 / M Adm Date: 3 Loc: 3T Room: [id number] Type: ADM INOo Attending Dr: Karol Sage MD Copies to: DO Trena Vinson DO, NANDINI Sage MD~ HPI DATE OF EXAMINATION: 10/28/22 CHIEF COMPLAINT: Shortness of breath HISTORY OF PRESENT ILLNESS: 82-year-old male with past medical history of hypertension, hyperlipidemia, history of prostate cancer, coronary artery disease, and history of cardiac stents 06/16 presents with episodic dizziness, lightheadedness and dyspnea. Patient reports he was out golfing today around 4 PM and had 5 random episodes of feeling dizzy and shortness of breath that lasted for few seconds and then went away throughout his time golfing. Reports feeling as if he was going to pass out. Denies any chest pain during the episodes. reports not worse on exertion or leaning forward. Denies losing consciousness or falling. Denies cough or wheezing. Reports normal appetite today and was drinking Gatorade while golfing. Reports history of heart stents placed in May 2021. Patient states he does occasionally get dizzy when he stands up too quickly due to his blood pressure medications, but he states this felt different. Patient is anxious due to his cardiac history. Reports he is on Eliquis twice daily andhas not taken his nighttime dose today. He reports he is allergic to Plavix. Denies any fevers, chills, nausea, vomiting, diarrhea, dysuria, hematochezia, melena, dysuria, weakness, or numbness or tingling. Lives at home with his . Reports he is very active and rides his bike and walks often without any chest pain or shortness of breath. Denies any tobacco use. Reports occasional alcohol use. Denies any other illicit drug use. In ED, vital signs within normal limits. EKG pending. Chest x-ray without acute findings on prelim read. CBC shows hemoglobin slightly low at 12.9 with MCV low at 79.6. White blood cell count and platelets within normal limits. BMP unremarkable. Troponin not elevated at 7.4. BNP mildly elevated at 148. Patient will be admitted under observation for further evaluation and treatment. Review of Systems Review of Systems All other systems reviewed & are negative unless noted below or in HPI PMFSH Vaccinated for COVID-19?: Unknown Medical History Bulging discs GERD (gastroesophageal reflux disease) High cholesterol Hypertension Prostate cancer Surgical History H/O heart artery stent H/O prostatectomy Social History Smoking Status: Never smoker Substance Use Type: None Meds Medications and Allergies Allergies clopidogrel [From Plavix] Adverse Reaction (Verified 10/28/22 20:24) Swelling Home Medications aspirin 81 mg tablet 81 mg PO DAILY 06/12/21 [History Confirmed 06/12/21] cholecalciferol (vitamin D3) 50 mcg (2,000 unit) capsule (Vitamin D3) 50 mcg PO DAILY 06/12/21 [History Confirmed 06/12/21] isosorbide mononitrate 30 mg tablet,extended release 24 hr 30 mg PO DAILY 06/12/21 [History Confirmed 06/12/21] loratadine 10 mg tablet 10 mg PO DAILY 06/12/21 [History Confirmed 06/12/21] zinc 50 mg capsule 50 mg PO DAILY 06/12/21 [History Confirmed 06/12/21] atorvastatin 80 mg tablet 80 mg PO DAILY #30 tabs 06/13/21 [Rx] metoprolol succinate 50 mg tablet,extended release 24 hr 50 mg PO DAILY #30 tabs 06/13/21 [Rx] ticagrelor 90 mg tablet (Brilinta) 90 mg PO BID #60 tabs 06/13/21 [Rx] Exam Physical Exam Vital Signs: Temp Pulse Resp BP Pulse Ox O2 Del Method 98.3 F 57 L 16 135/66 96 Room Air 10/28/22 20:17 10/28/22 21:03 10/28/22 21:03 10/28/22 21:03 10/28/22 21:03 10/28/22 21:03 Narrative: Constitutional: Alert and oriented x3, no obvious distress, well appearing, well nourished HENT: Normocephalic, atraumatic. MMs moist, posterior pharynx symmetric Eyes: Conjunctiva clear, Pupils equal bilaterally Neck: supple, no masses, trachea midline Lungs: CTA Bilaterally, no wheezing/rales/rhonchi CV: RRR, no murmur, gallops, or rubs Abdomen: soft, nontender, nondistended, normal bowel sounds x4 Extremities: warm, well perfused. No LE edema or calf tenderness, Distal pulses intact. Neuro: CN II-XII grossly intact. No focal sensory or motor deficits. Moves all limbs. Skin: warm and dry, no rashes/wounds on visualized areas Psych: Anxious affect, cooperative Results Lab Results Labs: Laboratory Last Values Corrected WBC 8.9 X10E3/uL (4.1-10.5) 10/28/22 21:10 Uncorrected WBC Count 8.9 x10E3/uL (4.1-10.5) 10/28/22 21:10 RBC 5.08 X10E6/uL (3.90-5.60) 10/28/22 21:10 Hgb 12.9 g/dL (13.0-17.0) L 10/28/22 21:10 Hct 40.4 % (38.8-50.0) 10/28/22 21:10 MCV 79.6 fl (83.5-101) L 10/28/22 21:10 MCH 25.3 pg (27.5-35.2) L 10/28/22 21:10 MCHC 31.8 g/dL (32.5-35.6) L 10/28/22 21:10 RDW 19.8 % (12.0-14.8) H 10/28/22 21:10 Plt Count 215 x10E3/uL (150-450) 10/28/22 21:10 MPV 7.8 fl (6.6-10.1) 10/28/22 21:10 Neut % (Auto) 62.5 % (.) 10/28/22 21:10 Lymph % (Auto) 24.4 % (.) 10/28/22 21:10 [place] % (Auto) 11.8 % (.) 10/28/22 21:10 Eos % (Auto) 0.9 % (.) 10/28/22 21:10 Baso % (Auto) 0.4 % (.) 10/28/22 21:10 Nucleat RBC Rel Count 0.0 /100 WBC (0-0.5) 10/28/22 21:10 Neut # (Auto) 5.6 x10E3/uL (1.8-7.7) 10/28/22 21:10 Lymph # (Auto) 2.2 x10E3/uL (1.00-4.8) 10/28/22 21:10 [place] # (Auto) 1.0 x10E3/uL (0.0-0.8) H 10/28/22 21:10 Eos # (Auto) 0.1 x10E3/uL (0.0-0.45) 10/28/22 21:10 Baso # (Auto) 0.0 x10E3/uL (0.0-0.2) 10/28/22 21:10 Monocyte Dist Width 16.55 % (0.00-20.00) 10/28/22 21:10 PHA Creatinine Clear 53.74 10/28/22 21:10 Sodium 139 mmol/L (136-145) 10/28/22 21:10 Potassium 4.2 mmol/L (3.5-5.1) 10/28/22 21:10 Chloride 106 mmol/L (98-107) 10/28/22 21:10 Carbon Dioxide 26.2 mmol/L (21.0-31.0) 10/28/22 21:10 Anion Gap 11.0 mEq/L (6.0-15.0) 10/28/22 21:10 BUN 23 mg/dL (7-25) 10/28/22 21:10 Creatinine 1.20 mg/dL (0.70-1.30) 10/28/22 21:10 Est GFR (CKD-EPI) > 60.0 mL/Min 10/28/22 21:10 Glucose 103 mg/dL (70-100) H 10/28/22 21:10 Calcium 8.4 mg/dL (8.6-10.3) L 10/28/22 21:10 Total Bilirubin 0.3 mg/dl (0.3-1.0) 10/28/22 21:10 AST 17 U/L (13-39) 10/28/22 21:10 ALT 16 U/L (7-52) 10/28/22 21:10 Alkaline Phosphatase 66 U/L (34-104) 10/28/22 21:10 Total Creatine Kinase 84 U/L (30-223) 10/28/22 21:10 Troponin I High Sens 7.4 pg/mL (0.0-20.0) 10/28/22 21:10 B-Natriuretic Peptide 148.0 pg/mL (5-100) H 10/28/22 21:10 Total Protein 6.5 gm/dL (6.4-8.9) 10/28/22 21:10 Albumin 4.0 gm/dL (3.5-5.7) 10/28/22 21:10 Globulin 2.5 gm/dL 10/28/22 21:10 Albumin/Globulin Ratio 1.6 10/28/22 21:10 A&P - Hospitalist Assessment/Plan (1) Pre-syncope: (2) Dizziness: (3) Dyspnea: (4) Coronary artery disease: (5) History of heart artery stent: (6) Essential hypertension: (7) Hyperlipidemia: Plan 82-year-old male with past medical history of hypertension, hyperlipidemia, history of prostate cancer, coronary artery disease, and history of cardiac stents 06/16 presents with episodic dizziness, lightheadedness and dyspnea. 1. Presyncope -Vital signs within normal limits -EKG pending -Chest x-ray prelim read without acute findings. -Troponin not elevated at 7.4 -BNP mildly elevated at 148 -Received 1 L NS in ED -Apply telemetry -Trend troponin -Obtain lipid panel -Check magnesium -Check TSH -Check A1c -Obtain Echo -Consult cardiology Clarify home medications. Diet: Regular Admission: Observation DVT prophylaxis: SCDs CODE STATUS: Full code The patient has been seen and examined. H&P written by resident Trena Pena DO. I personally obtained the cramer and critical portions of the history and physical exam. I reviewed the chart, the team's documentation, and discussed the patient care with the team. I agree with the team's medical decision making and have edited the note to reflect my clinical findings and my assessment and plan. MD Milly Documented By: Karol Sage MD 10/28/226 Signed By: <Electronically signed by Karol Sage MD> 10/28/221 <Electronically signed by DO NANDINI Pena> 10/28/22 [id number] [facility] Work Phone: History general Narrative - Reported* Type Description Date Medical History Paroxysmal atrial fibrillation Medical History NSTEMI (non-ST elevated myocardi al infarction) Medical History Arthritis of hand, right Medical History Rectal bleeding Medical History Pruritic rash Medical History Arthritis of right hip Medical History Primary insomnia Medical History Adenomatous polyp of descending colon Medical History Lung nodule Medical History Episodic tension-typ e headache, not intractable Medical History Acute seasonal allergic rhinitis due to pollen Medical History Paresthesia Medical History Left carotid bruit Medical History H/O prostate cancer Medical History Lumbar spondylosis Medical History Essential hypertension Medical History Hyperlipidemia type II Medical History Acute right hip pain Medical History Lumbar pain Medical History Edema of both lower extremities Medical History ASHD (arteriosclerotic heart dis ease) Medical History Malignant melanoma Medical History Idiopathic neuropathy Medical History Basal cell carcinoma Medical History BRADYCARDIA, DRUG INDUCED Surgical History CATHERIZATION, HEART, LEFT 2020 Surgical History COLONOSCOPY 2011,2017,2020 Surgical History DISECTOMY, LUMBAR Surgical History PTCA/STENT Surgical History PCI/STENT LAD 2015 Hospitalization History SEE SURGICAL HX [facility] Other Hismqae general Narrative - Reported* Type Description Date Medical History Paroxysmal atrial fibrillation Medical History NSTEMI (non-ST elevated myocardi al infarction) Medical History Arthritis of hand, right Medical History Rectal bleeding Medical History Pruritic rash Medical History Arthritis of right hip Medical History Primary insomnia Medical History Adenomatous polyp of descending colon Medical History Lung nodule Medical History Episodic tension-typ e headache, not intractable Medical History Acute seasonal allergic rhinitis due to pollen Medical History Paresthesia Medical History Left carotid bruit Medical History H/O prostate cancer Medical History Lumbar spondylosis Medical History Essential hypertension Medical History Hyperlipidemia type II Medical History Acute right hip pain Medical History Lumbar pain Medical History Edema of both lower extremities Medical History ASHD (arteriosclerotic heart dis ease) Medical History Malignant melanoma Medical History Idiopathic neuropathy Medical History Basal cell carcinoma Medical History BRADYCARDIA, DRUG INDUCED Medical History Erosive esophagitis, duodenitis Surgical History CATHERIZATION, HEART, LEFT 2020 Surgical History COLONOSCOPY 2011,2017,2020 Surgical History DISECTOMY, LUMBAR Surgical History PTCA/STENT Surgical History PCI/STENT LAD 2016 Surgical History Colonoscopy 03/2023 Surgical History EGD w/ bx 03/2023 Hospitalization History SEE SURGICAL HX [facility] Other History of Present illness Narrative* The patient states he has been generally doing well since the last visit. Comorbid Illnesses: hypertension and hyperlipidemia. * Symptoms: denies chest pain at rest, denies exertional chest pain, denies dyspnea, denies fatigue, denies exercise intolerance, denies palpitations, denies edema, denies orthopnea, resolved dizzinessand resolved orthostatic dizziness. * Associated symptoms: no syncope. * His symptoms do not limit his activities. * Disease Monitoring: The patient has had a stable weight. * Medications: the patient is adherent with his medication regimen. He denies medication side effects. [facility] [place] 250 DO Work Phone: History of Present illness Narrative* The patient states he has been generally doing well since the last visit. Comorbid Illnesses: hypertension and hyperlipidemia. * Symptoms: denies chest pain at rest, denies exertional chest pain, denies dyspnea, denies fatigue, denies exercise intolerance, denies palpitations, denies edema, denies orthopnea, resolved dizzinessand resolved orthostatic dizziness. * Associated symptoms: no syncope. * His symptoms do not limit his activities. * Disease Monitoring: The patient has had a stable weight. * Medications: the patient is adherent with his medication regimen. He denies medication side effects. [facility] 600 DO Work Phone: History of Present illness Narrative* Patient returns in follow-up of problems as noted. This first time I am seeing him. In the past he was under the care of Dr. Baron and Florence Aden for coronary disease with intervention. Recently he is having problems with paroxysmal atrial fibrillation and bradycardia. Ultimately he was switchedto amiodarone with jainism of sinus rhythm, today, and a better heart rate. The reason and rationale for this approach was discussed in detail and I endorsed that. His blood pressure and cholesterol appear to be adequately managed and no other risk factors or need of adjustment or management. * Detailed discussion was undertaken explaining to the patient hemodynamics. He is very worried aboutlow heart rate. Advised him its inconsequential in the absence of symptoms and I suggested that he and his stop checking his blood pressure and his concurs, happily. * Other problems including blood pressure cholesterol and risk factor management as well as symptoms to watch for were discussed and the patient was educated extensively. They are very pleased regarding my explanation of these matters and they will continue as is. The 1 change I did recommend was cutting amiodarone down to 200 mg once a day now that sinus rhythm appears to be restored and we will clinically reassess in several months and make additional recommendations. [facility] [employer] DO Work Phone: History of Present illness Narrative* Patient returns in follow-up of problems as noted. This first time I am seeing him. In the past he was under the care of Dr. Baron and Florence Aden for coronary disease with intervention. Recently he is having problems with paroxysmal atrial fibrillation and bradycardia. Ultimately he was switchedto amiodarone with jainism of sinus rhythm, today, and a better heart rate. The reason and rationale for this approach was discussed in detail and I endorsed that. His blood pressure and cholesterol appear to be adequately managed and no other risk factors or need of adjustment or management. * Detailed discussion was undertaken explaining to the patient hemodynamics. He is very worried aboutlow heart rate. Advised him its inconsequential in the absence of symptoms and I suggested that he and his stop checking his blood pressure and his concurs, happily. * Other problems including blood pressure cholesterol and risk factor management as well as symptoms to watch for were discussed and the patient was educated extensively. They are very pleased regarding my explanation of these matters and they will continue as is. The 1 change I did recommend was cutting amiodarone down to 200 mg once a day now that sinus rhythm appears to be restored and we will clinically reassess in several months and make additional recommendations. [facility] [employer] DO Work Phone: History of Present illness Narrative* The patient states he has been generally doing well since the last visit. Comorbid Illnesses: hypertension and hyperlipidemia. * Symptoms: denies chest pain at rest, denies exertional chest pain, denies dyspnea, stable fatigue, denies exercise intolerance, denies palpitations, denies edema, resolved dizziness and denies orthostatic dizziness. * Associated symptoms: no syncope. * Disease Monitoring: [facility] [employer] 250 DO Work Phone: History of Present illness Narrative* The patient states he has been generally doing well since the last visit. Comorbid Illnesses: hypertension and hyperlipidemia. * Symptoms: denies chest pain at rest, denies exertional chest pain, denies dyspnea, stable fatigue, denies exercise intolerance, denies palpitations, denies edema, denies orthopnea, denies dizziness and denies orthostatic dizziness. * Associated symptoms: no syncope. * His symptoms do not limit his activities. * Disease Monitoring: The patient has had a stable weight. * Medications: the patient is adherent with his medication regimen. He denies medication side effects. [facility] [employer] DO Work Phone: History of Present illness Narrative* The patient states he has been generally doing well since the last visit. Comorbid Illnesses: hypertension and hyperlipidemia. * Symptoms: denies chest pain at rest, denies exertional chest pain, denies dyspnea, stable fatigue, denies exercise intolerance, denies palpitations, denies edema, denies orthopnea, denies dizziness and denies orthostatic dizziness. * Associated symptoms: no syncope. * His symptoms do not limit his activities. * Disease Monitoring: The patient has had a stable weight. * Medications: the patient is adherent with his medication regimen. He denies medication side effects. [facility] [employer] DO Work Phone: Hospital Discharge instructions Additional Instructions DISCHARGE INSTRUCTIONS FOR ENDOSCOPY FOR COLONOSCOPY: -Expect a gassy or full feeling after a colonoscopy. Report any NEW abdominal pain or vomiting. -Watch for rectal bleeding. You may have oozing, but notify the doctor if you pass clots. -Avoid aspirin for 2 days IF a polyp is removed. -It is important to keep your appointments for follow up examinations because polyps can grow back. FOR SINGH/EGD/ERCP/PEG: -Your throat may feel sore today from the scope that the doctor passed through your throat to visualize your stomach. Take a throat lozenge or suck on ice to ease the discomfort. -Do NOT smoke. -You may notice some streaks of blood in your sputum if the doctor has taken a biopsy. Notify the doctor if you cough up large amounts of blood. -Expect a gassy or full feeling after esophagoscopy. Report any persistent pain or vomiting. -Take it easy today. You need not stay in bed, but avoid strenuous activities such as jogging. FOR SEDATION FOR 24 HOURS: -NO driving -Do NOT operate machinery such as power tools, lawn mowers, snow blowers, sewing machines, etc. -Avoid alcoholic beverages and drugs for allergies, nerves, or sleep. -Do NOT stay alone. Do NOT leave your child unattended. -Do NOT make important personal or business decisions or sign any legal documents. -Eat solid foods and drink liquids in smaller amounts than usual until normal appetite returns. If you should experience an upset stomach, liquids high in sugar content (soda, Pal-aid, non-acid juices) are recommended. -You can resume normal activities tomorrow. FOLLOW UP Please call the office and make a follow up appointment to see me in 6-8 weeks. Pantoprazole 40 mg p.o. every morning -Notify the doctor if you have any problems. -Office number [phone] Work Phone: Reason for referral (narrative)* Reason Referral for Fe defi ciency anemia and GERD Diagnosis 1 Gastroesophageal ref lux disease with esophagitis without hemorrhage (K21.00) Referral Organization [facility] Rola Garcia C lin[place]rad Referring Provider First Name Irving Referring Provider Last Name Rola Referring Provider Specialty Internal Me dicine Referred Organization [facility] Gastroenterolo gy Referred Provider Michael Bahena Referred Address [address] [place] [phone] Referred Provider Specialty Gastroentero logy Referral Priority Routine [facility] Other Summary Purpose Family History No Family History Records FoundUnknown Family Member Name Dates Details Family history of malignant neoplasm of colon: Father(V16.0, Z80.0) Status:Active Family history of lung cance r: Father(V16.1, Z80.1) Status:Active Family history of malignant neoplasm of breast: Sister(V16.3, Z80.3) Status:Active Family history of PTCA: Sist er(V17.49, Z82.49) Status:Active Family history of dementia: Sister(V17.2, Z81.8) Status:Active Family history of myocardial infarction: Brother(V17.3, Z82.49) Status:Active Unknown Family Member Name Dates Details Family history of malignant neoplasm of colon: Father(V16.0, Z80.0) Status:Active Family history of lung cance r: Father(V16.1, Z80.1) Status:Active Family history of malignant neoplasm of breast: Sister(V16.3, Z80.3) Status:Active Family history of PTCA: Sist er(V17.49, Z82.49) Status:Active Family history of dementia: Sister(V17.2, Z81.8) Status:Active Family history of myocardial infarction: Brother(V17.3, Z82.49) Status:Active Unknown Family Member Name Dates Details Family history of malignant neoplasm of colon: Father(V16.0, Z80.0) Status:Active Family history of lung cance r: Father(V16.1, Z80.1) Status:Active Family history of malignant neoplasm of breast: Sister(V16.3, Z80.3) Status:Active Family history of PTCA: Sist er(V17.49, Z82.49) Status:Active Family history of dementia: Sister(V17.2, Z81.8) Status:Active Family history of myocardial infarction: Brother(V17.3, Z82.49) Status:Active Unknown Family Member Name Dates Details Family history of malignant neoplasm of colon: Father(V16.0, Z80.0) Status:Active Family history of lung cance r: Father(V16.1, Z80.1) Status:Active Family history of malignant neoplasm of breast: Sister(V16.3, Z80.3) Status:Active Family history of PTCA: Sist er(V17.49, Z82.49) Status:Active Family history of dementia: Sister(V17.2, Z81.8) Status:Active Family history of myocardial infarction: Brother(V17.3, Z82.49) Status:Active Unknown Family Member Name Dates Details Family history of malignant neoplasm of colon: Father(V16.0, Z80.0) Status:Active Family history of lung cance r: Father(V16.1, Z80.1) Status:Active Family history of malignant neoplasm of breast: Sister(V16.3, Z80.3) Status:Active Family history of PTCA: Sist er(V17.49, Z82.49) Status:Active Family history of dementia: Sister(V17.2, Z81.8) Status:Active Family history of myocardial infarction: Brother(V17.3, Z82.49) Status:Active Unknown Family Member Name Dates Details Family history of malignant neoplasm of colon: Father(V16.0, Z80.0) Status:Active Family history of lung cance r: Father(V16.1, Z80.1) Status:Active Family history of malignant neoplasm of breast: Sister(V16.3, Z80.3) Status:Active Family history of PTCA: Sist er(V17.49, Z82.49) Status:Active Family history of dementia: Sister(V17.2, Z81.8) Status:Active Family history of myocardial infarction: Brother(V17.3, Z82.49) Status:Active Unknown Family Member Name Dates Details Family history of malignant neoplasm of colon: Father(V16.0, Z80.0) Status:Active Family history of lung cance r: Father(V16.1, Z80.1) Status:Active Family history of malignant neoplasm of breast: Sister(V16.3, Z80.3) Status:Active Family history of PTCA: Sist er(V17.49, Z82.49) Status:Active Family history of dementia: Sister(V17.2, Z81.8) Status:Active Family history of myocardial infarction: Brother(V17.3, Z82.49) Status:Active Unknown Family Member Name Dates Details Family history of malignant neoplasm of colon: Father(V16.0, Z80.0) Status:Active Family history of lung cance r: Father(V16.1, Z80.1) Status:Active Family history of malignant neoplasm of breast: Sister(V16.3, Z80.3) Status:Active Family history of PTCA: Sist er(V17.49, Z82.49) Status:Active Family history of dementia: Sister(V17.2, Z81.8) Status:Active Family history of myocardial infarction: Brother(V17.3, Z82.49) Status:Active Unknown Family Member Name Dates Details Family history of malignant neoplasm of colon: Father(V16.0, Z80.0) Status:Active Family history of lung cance r: Father(V16.1, Z80.1) Status:Active Family history of malignant neoplasm of breast: Sister(V16.3, Z80.3) Status:Active Family history of PTCA: Sist er(V17.49, Z82.49) Status:Active Family history of dementia: Sister(V17.2, Z81.8) Status:Active Family history of myocardial infarction: Brother(V17.3, Z82.49) Status:Active Unknown Family Member Name Dates Details Family history of malignant neoplasm of colon: Father(V16.0, Z80.0) Status:Active Family history of lung cance r: Father(V16.1, Z80.1) Status:Active Family history of malignant neoplasm of breast: Sister(V16.3, Z80.3) Status:Active Family history of PTCA: Sist er(V17.49, Z82.49) Status:Active Family history of dementia: Sister(V17.2, Z81.8) Status:Active Family history of myocardial infarction: Brother(V17.3, Z82.49) Status:Active Unknown Family Member Name Dates Details Family history of malignant neoplasm of colon: Father(V16.0, Z80.0) Status:Active Family history of lung cance r: Father(V16.1, Z80.1) Status:Active Family history of malignant neoplasm of breast: Sister(V16.3, Z80.3) Status:Active Family history of PTCA: Sist er(V17.49, Z82.49) Status:Active Family history of dementia: Sister(V17.2, Z81.8) Status:Active Family history of myocardial infarction: Brother(V17.3, Z82.49) Status:Active Unknown Family Member Name Dates Details Family history of malignant neoplasm of colon: Father(V16.0, Z80.0) Status:Active Family history of lung cance r: Father(V16.1, Z80.1) Status:Active Family history of malignant neoplasm of breast: Sister(V16.3, Z80.3) Status:Active Family history of PTCA: Sist er(V17.49, Z82.49) Status:Active Family history of dementia: Sister(V17.2, Z81.8) Status:Active Family history of myocardial infarction: Brother(V17.3, Z82.49) Status:Active Unknown Family Member Name Dates Details Family history of malignant neoplasm of colon: Father(V16.0, Z80.0) Status:Active Family history of lung cance r: Father(V16.1, Z80.1) Status:Active Family history of malignant neoplasm of breast: Sister(V16.3, Z80.3) Status:Active Family history of PTCA: Sist er(V17.49, Z82.49) Status:Active Family history of dementia: Sister(V17.2, Z81.8) Status:Active Family history of myocardial infarction: Brother(V17.3, Z82.49) Status:Active Unknown Family Member Name Dates Details Family history of malignant neoplasm of colon: Father(V16.0, Z80.0) Status:Active Family history of lung cance r: Father(V16.1, Z80.1) Status:Active Family history of malignant neoplasm of breast: Sister(V16.3, Z80.3) Status:Active Family history of PTCA: Sist er(V17.49, Z82.49) Status:Active Family history of dementia: Sister(V17.2, Z81.8) Status:Active Family history of myocardial infarction: Brother(V17.3, Z82.49) Status:Active Unknown Family Member Name Dates Details Family history of malignant neoplasm of colon: Father(V16.0, Z80.0) Status:Active Family history of lung cance r: Father(V16.1, Z80.1) Status:Active Family history of malignant neoplasm of breast: Sister(V16.3, Z80.3) Status:Active Family history of PTCA: Sist er(V17.49, Z82.49) Status:Active Family history of dementia: Sister(V17.2, Z81.8) Status:Active Family history of myocardial infarction: Brother(V17.3, Z82.49) Status:Active Unknown Family Member Name Dates Details Family history of malignant neoplasm of colon: Father(V16.0, Z80.0) Status:Active Family history of lung cance r: Father(V16.1, Z80.1) Status:Active Family history of malignant neoplasm of breast: Sister(V16.3, Z80.3) Status:Active Family history of PTCA: Sist er(V17.49, Z82.49) Status:Active Family history of dementia: Sister(V17.2, Z81.8) Status:Active Family history of myocardial infarction: Brother(V17.3, Z82.49) Status:Active Unknown Family Member Name Dates Details Family history of malignant neoplasm of colon: Father(V16.0, Z80.0) Status:Active Family history of lung cance r: Father(V16.1, Z80.1) Status:Active Family history of malignant neoplasm of breast: Sister(V16.3, Z80.3) Status:Active Family history of PTCA: Sist er(V17.49, Z82.49) Status:Active Family history of dementia: Sister(V17.2, Z81.8) Status:Active Family history of myocardial infarction: Brother(V17.3, Z82.49) Status:Active Unknown Family Member Name Dates Details Family history of malignant neoplasm of colon: Father(V16.0, Z80.0) Status:Active Family history of lung cance r: Father(V16.1, Z80.1) Status:Active Family history of malignant neoplasm of breast: Sister(V16.3, Z80.3) Status:Active Family history of PTCA: Sist er(V17.49, Z82.49) Status:Active Family history of dementia: Sister(V17.2, Z81.8) Status:Active Family history of myocardial infarction: Brother(V17.3, Z82.49) Status:Active Unknown Family Member Name Dates Details Family history of malignant neoplasm of colon: Father(V16.0, Z80.0) Status:Active Family history of lung cance r: Father(V16.1, Z80.1) Status:Active Family history of malignant neoplasm of breast: Sister(V16.3, Z80.3) Status:Active Family history of PTCA: Sist er(V17.49, Z82.49) Status:Active Family history of dementia: Sister(V17.2, Z81.8) Status:Active Family history of myocardial infarction: Brother(V17.3, Z82.49) Status:Active Unknown Family Member Name Dates Details Family history of malignant neoplasm of colon: Father(V16.0, Z80.0) Status:Active Family history of lung cance r: Father(V16.1, Z80.1) Status:Active Family history of malignant neoplasm of breast: Sister(V16.3, Z80.3) Status:Active Family history of PTCA: Sist er(V17.49, Z82.49) Status:Active Family history of dementia: Sister(V17.2, Z81.8) Status:Active Family history of myocardial infarction: Brother(V17.3, Z82.49) Status:Active Unknown Family Member Name Dates Details Family history of malignant neoplasm of colon: Father(V16.0, Z80.0) Status:Active Family history of lung cance r: Father(V16.1, Z80.1) Status:Active Family history of malignant neoplasm of breast: Sister(V16.3, Z80.3) Status:Active Family history of PTCA: Sist er(V17.49, Z82.49) Status:Active Family history of dementia: Sister(V17.2, Z81.8) Status:Active Family history of myocardial infarction: Brother(V17.3, Z82.49) Status:Active Unknown Family Member Name Dates Details Family history of malignant neoplasm of colon: Father(V16.0, Z80.0) Status:Active Family history of lung cance r: Father(V16.1, Z80.1) Status:Active Family history of malignant neoplasm of breast: Sister(V16.3, Z80.3) Status:Active Family history of PTCA: Sist er(V17.49, Z82.49) Status:Active Family history of dementia: Sister(V17.2, Z81.8) Status:Active Family history of myocardial infarction: Brother(V17.3, Z82.49) Status:Active Unknown Family Member Name Dates Details Family history of malignant neoplasm of colon: Father(V16.0, Z80.0) Status:Active Family history of lung cance r: Father(V16.1, Z80.1) Status:Active Family history of malignant neoplasm of breast: Sister(V16.3, Z80.3) Status:Active Family history of PTCA: Sist er(V17.49, Z82.49) Status:Active Family history of dementia: Sister(V17.2, Z81.8) Status:Active Family history of myocardial infarction: Brother(V17.3, Z82.49) Status:Active Unknown Family Member Name Dates Details Family history of malignant neoplasm of colon: Father(V16.0, Z80.0) Status:Active Family history of lung cance r: Father(V16.1, Z80.1) Status:Active Family history of malignant neoplasm of breast: Sister(V16.3, Z80.3) Status:Active Family history of PTCA: Sist er(V17.49, Z82.49) Status:Active Family history of dementia: Sister(V17.2, Z81.8) Status:Active Family history of myocardial infarction: Brother(V17.3, Z82.49) Status:Active Unknown Family Member Name Dates Details Family history of malignant neoplasm of colon: Father(V16.0, Z80.0) Status:Active Family history of lung cance r: Father(V16.1, Z80.1) Status:Active Family history of malignant neoplasm of breast: Sister(V16.3, Z80.3) Status:Active Family history of PTCA: Sist er(V17.49, Z82.49) Status:Active Family history of dementia: Sister(V17.2, Z81.8) Status:Active Family history of myocardial infarction: Brother(V17.3, Z82.49) Status:Active Unknown Family Member Name Dates Details Family history of malignant neoplasm of colon: Father(V16.0, Z80.0) Status:Active Family history of lung cance r: Father(V16.1, Z80.1) Status:Active Family history of malignant neoplasm of breast: Sister(V16.3, Z80.3) Status:Active Family history of PTCA: Sist er(V17.49, Z82.49) Status:Active Family history of dementia: Sister(V17.2, Z81.8) Status:Active Family history of myocardial infarction: Brother(V17.3, Z82.49) Status:Active Unknown Family Member Name Dates Details Family history of malignant neoplasm of colon: Father(V16.0, Z80.0) Status:Active Family history of lung cance r: Father(V16.1, Z80.1) Status:Active Family history of malignant neoplasm of breast: Sister(V16.3, Z80.3) Status:Active Family history of PTCA: Sist er(V17.49, Z82.49) Status:Active Family history of dementia: Sister(V17.2, Z81.8) Status:Active Family history of myocardial infarction: Brother(V17.3, Z82.49) Status:Active Unknown Family Member Name Dates Details Family history of malignant neoplasm of colon: Father(V16.0, Z80.0) Status:Active Family history of lung cance r: Father(V16.1, Z80.1) Status:Active Family history of malignant neoplasm of breast: Sister(V16.3, Z80.3) Status:Active Family history of PTCA: Sist er(V17.49, Z82.49) Status:Active Family history of dementia: Sister(V17.2, Z81.8) Status:Active Family history of myocardial infarction: Brother(V17.3, Z82.49) Status:Active Unknown Family Member Name Dates Details Family history of malignant neoplasm of colon: Father(V16.0, Z80.0) Status:Active Family history of lung cance r: Father(V16.1, Z80.1) Status:Active Family history of malignant neoplasm of breast: Sister(V16.3, Z80.3) Status:Active Family history of PTCA: Sist er(V17.49, Z82.49) Status:Active Family history of dementia: Sister(V17.2, Z81.8) Status:Active Family history of myocardial infarction: Brother(V17.3, Z82.49) Status:Active Unknown Family Member Name Dates Details Family history of malignant neoplasm of colon: Father(V16.0, Z80.0) Status:Active Family history of lung cance r: Father(V16.1, Z80.1) Status:Active Family history of malignant neoplasm of breast: Sister(V16.3, Z80.3) Status:Active Family history of PTCA: Sist er(V17.49, Z82.49) Status:Active Family history of dementia: Sister(V17.2, Z81.8) Status:Active Family history of myocardial infarction: Brother(V17.3, Z82.49) Status:Active Relationship Condition Age at Onset Recorded Date/T gary brother Myocardial infarction Unknown Unknown Family Member Name Dates Details Family history of malignant neoplasm of colon: Father(V16.0, Z80.0) Status:Active Family history of lung cance r: Father(V16.1, Z80.1) Status:Active Family history of malignant neoplasm of breast: Sister(V16.3, Z80.3) Status:Active Family history of PTCA: Sist er(V17.49, Z82.49) Status:Active Family history of dementia: Sister(V17.2, Z81.8) Status:Active Family history of myocardial infarction: Brother(V17.3, Z82.49) Status:Active Relationship Condition Age at Onset Recorded Date/T gary brother Myocardial infarction Unknown brother Unknown Heart disease Unknown father Malignant neoplasm Unknown Family history of colon cancer Unknown Unknown Not Specified Unknown Advance Directives No Advanced Directives Records Found Advance Directive Response Recorded Date/ Time Advance Directives No February 2:38pm Advance Directive Response Recorded Date/ Time Advance Directives No February 1:38pm Hospital Course Note MR#: [id number] [facility] Pt. Name: Valentín Buckner Admitted: 05/09/2018 Discharged: 05/10/2018 Date of : 1940 Physician: Anna Hoyt MD [facility] PH[facility]IAN: Dr. Irving Canela.PRINCIPAL PROBLEM:1. Chest pain, rule out acute coronary syndrome.2. History of CAD status post stents.3. Hypertension, well controlled.4. Unspecified dyslipidemia.CONSULTANTS: Cardiology.HOSPITAL COURSE: This is a 77-year-old male, who was seen at [facility] for concern for unstable angina. The patient reports a 3-4 dayhistory of jaw pain and some slight shortness of breath. He said therewere no aggravating factors. He states that he did have an NSTEMI in 2015with a subsequent stent to his RCA as well as stent to his LAD in 2016. Hestated at that time he did not have the typical chest pain symptoms aswell. Workup at [facility] revealed an EKG that was normal andnormal troponin. However, given the patient's cardiac history, they feltthat i (more content not included)... Chief Complaint * VALENTÍN BUCKNER is being seen for follow-up of a hospitalization for. 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 He was treated conservatively. He has no recurrent angina is doing very well he has been chopping wood and actually walking and riding his bicycle on the local bike path. * He has a history of PCI's of the LAD and circumflex remotely the stents are all widely patent. He remains on Brilinta and aspirin with no bleeding or thromboembolic or ischemic events * Recommendations proceed with cardiac rehab we filled out his rehab prescription and paper this morning, follow-up otherwise in 6 months on same therapy * I have been having bleeding from my rectum * Not really worse since added Eliquis. * Saw PCP - no hemorrhoid, is scheduled to see GI * Reports colonoscopy one year ago * BRBPR no melena, no weakness/dizziness * VALENTÍN BUCKNER is being seen for a 1 month follow-up of bradycardia. * Patient presents accompanied by . * Patient is ambulatory with steady gait. * Patient was last evaluated by myself August 2021. At that, heart slow and metoprolol had been reduced by PCP. I stopped metoprolol and resumed norvasc for BP. * F/U holter showed PAF - Dr. Baron started on Eliquis. * A chronological chart review from last in clinic evaluation was completed. * Continues to attend CR - no afib identified. * HR at home no longer in 40s - he reports 'feeling better' off metoprolol. * Went to ER last week due to episode 'not feeling good' - treated IVF, unremarkable work-up. * At time of holter monitor did not have any symptoms. * Remains active chopping wood without anginal complaints or ntg use. * Lengthy discussion re: treatment options. * No betapace due to bradycardia * Tikosyn requires inpt drug load * Amiodarone and testing requirements * I have been having bleeding from my rectum * Not really worse since added Eliquis. * Saw PCP - no hemorrhoid, is scheduled to see GI * Reports colonoscopy one year ago * BRBPR no melena, no weakness/dizziness * VALENTÍN BUCKNER is being seen for a 1 month follow-up of bradycardia. * Patient presents accompanied by . * Patient is ambulatory with steady gait. * Patient was last evaluated by myself August 2021. At that, heart slow and metoprolol had been reduced by PCP. I stopped metoprolol and resumed norvasc for BP. * F/U holter showed PAF - Dr. Baron started on Eliquis. * A chronological chart review from last in clinic evaluation was completed. * Continues to attend CR - no afib identified. * HR at home no longer in 40s - he reports 'feeling better' off metoprolol. * Went to ER last week due to episode 'not feeling good' - treated IVF, unremarkable work-up. * At time of holter monitor did not have any symptoms. * Remains active chopping wood without anginal complaints or ntg use. * Lengthy discussion re: treatment options. * No betapace due to bradycardia * Tikosyn requires inpt drug load * Amiodarone and testing requirements Patient here for EKG ordered by Florence Mora NP/ Dr. Brendon Ceja MD for AFIB. Dr. Abida MD in suite. At last OV patient was started on 200 mg of Amiodarone. Med list reviewed andupdated. Patient has no cardiac complaints. EKG reviewed by Blue Mccurdy RN prior to discharge. To Dr. Brendon Ceja MD for review.Amiodarone Order sent to [facility] for testing due in October VALENTÍN BUCKNER is being seen for a 6 week follow-up of.VALENTÍN BUCKNER is being seen for a 6 week follow-up of.* VALENTÍN BUCKNER is being seen for a 6 month follow-up of. * 81-year-old gentleman who returns for routine follow-up and doing very well other than evidence of multiple ecchymoses in the left bicipital hematoma from playing golf. Patient has had a previous small non-ST elevation CO in May 2021 associated with a small OM branch occlusion and underwent con servative based management with no intervention. He subsequently developed paroxysmal A. fib currently in sinus rhythm on a high risk medical therapies including amiodarone and Eliquis. Today's ECG reveals sinus bradycardia at a rate of 50 with a QT corrected interval 457 ms with first-degree AV block. * He also complains of worsening joint and muscle aches likely associated with high-dose atorvastatin. * Because of the above mentioned complaints, we will go ahead and discontinue Brilinta altogether, continue with Eliquis, and decrease amiodarone to 100 mg Tuesday through Tuesday, decrease atorvastatin 40 mg daily, decrease aspirin to 81 mg twice a week have him report to us in regards to his symptoms, bruising and myalgias otherwise follow-up in 6 months Amiodarone Order sent to [facility] for testing due in FebruaryAmiodarone Order sent to [facility] for testing due in July 19Amiodarone Order sent to [facility] for testing due in September* Hospital f/u: 'doing ok' * VALENTÍN BUCKNER is being seen for follow-up of a hospitalization for dizziness. * Patient presents to the office ambulatory steady gait, is accompanied by his . Last evaluated in clinic Dr. Baron June 2022. At that time dose of amiodarone reduced 100 mg daily. * October [address] [facility] due to dizziness. Seen in consultation by . Both consultation anddischarge summary document chronic atrial fibrillation with slow ventricular rate: Heart rate 50-55, lowest heart rate 47 with ambulatory rate in the 60s. EKG with sinus bradycardia with first-degreeAV block. Dose of amiodarone was reduced to 100 mg 3 times weekly. * His prior PAF heart rate greater than 100. * Patient reports that on the day of admit [place], when he raised up he felt dizzy . He had significant anxiety and presented to the emergency department. He denies any additional episodes. * He remains a very aerobically active 82-year-old he does yard work, rakes up leaves, rides a bicycle approximately 3 miles daily, goes golfing. His prior PCI symptoms were jaw aching and he denies any reoccurrence, no nitroglycerin usage. He denies any fatigability, no near syncope, no prior syncopal episode. No change in exercise capacity or functional tolerance. * EKG in office maintaining sinus bradycardia with first-degree AV block. Once again discussed with patient and that this is inconsequential in the absence of symptoms. Reviewed concerns that on lower dose of amiodarone could have additional atrial fibrillation. We will proceed with 14-day Head Held High. At this time amiodarone has been reduced greater than 30 days. He otherwise continues to tolerate anticoagulation without any bleeding diatheses. * Secondary prevention has been reviewed. Patient is here today for a BP check ordered by Florence Mora NP due to hypertenstion. Florence Mora NP in suite. Patient is here after office visit 11/29/22 where patient was bradycardic and blood pressure was 142/82. Patient's Amiodarone was decreased, denies any current cardiac symptoms. Medication list was reviewed verbally with patient. Discussed with Enmanuel Lu RN prior to discharge. To Florence Mora NP for review.* Routine f/u: 'doing pretty good' * VALENTÍN BUCKNER is being seen for a 1 month follow-up of atrial fibrillation and bradycardia. * Routine f/u: 'doing pretty good' * VALENTÍN BUCKNER is being seen for a 1 month follow-up of atrial fibrillation and bradycardia. * Patient presents to the office ambulatory with steady gait. Last evaluated in clinic by myself approximately 1 months ago. At that time, patient was extremely anxious regarding bradycardia and he completed a 14-day Head Held High. Results reviewed including no evidence of high-grade heart block, noc turnal bradycardia and 1 brief atrial fibrillation episode -no indication for pacemaker. Patient continues to deny dizziness, lightheadedness, syncopal episodes, change in exercise capacity or functional tolerance -he remains aerobically active riding a bicycle approximately 4 times a week, walking1 mile daily and playing golf for exercise. He has been educated to update office if starts to experience any type of dizziness, near syncope or significant change in overall functional status. * During the brief episode of atrial fibrillation he was completely asymptomatic. He continues to maintain sinus bradycardia in the office today on amiodarone 100 mg 3 times weekly. Remains compliant with anticoagulation denies any bleeding diatheses. His blood pressure was slightly elevated at last visit, remains borderline in the office today. Discussed the importance of secondary prevention and will add low-dose Norvasc to medical regimen. * Overall patient is pleased with current state of cardiovascular health. At this time there are no indications for additional cardiovascular testing or need for medication changes. Chief Complaint and Reason for Visit Chief Complaint i48.0 z79.899 Chief Complaint i48.0 z79.899 SOB/Dizziness Reason for Visit Coronary artery dise ase Dizziness Dyspnea Essential hypertension History of heart artery stent Hyperlipidemia Pre-syncope Chief Complaint i48.0 z79.899 GERD, Change in Bowel Habits Reason for Visit Change in bowel func tion Chief Complaint Amb Documentation i48.0 z79.899 i48.0 z79.899 discuss low iron treatments Chief Complaint Amb Documentation i48.0 z79.899 i48.0 z79.899 discuss low iron treatments stomach pain Reason for Visit ASHD (arteriosclerot ic heart disease) Essential hypertension Gastroesophageal reflux disease with esophagitis without hemorrhage Iron deficiency anemia due to chronic blood loss Paroxysmal atrial fibrillation Chief Complaint Amb Documentation i48.0 z79.899 i48.0 z79.899 discuss low iron treatments stomach pain iron def anemia Reason for Visit ASHD (arteriosclerot ic heart disease) Essential hypertension Gastroesophageal reflux disease with esophagitis without hemorrhage Iron deficiency anemia due to chronic blood loss Paroxysmal atrial fibrillation Abdominal pain Iron deficiency anemia Irritable bowel syndrome with diarrhea Abdominal pain Fecal urgency Gas bloat syndrome Groin pain Iron deficiency anemia due to chronic blood loss Loose stools Chief Complaint Amb Documentation i48.0 z79.899 i48.0 z79.899 discuss low iron treatments stomach pain iron def anemia loose stool loose stool Amb Documentation Medicare Wellness Reason for Visit ASHD (arteriosclerot ic heart disease) Essential hypertension Gastroesophageal reflux disease with esophagitis without hemorrhage Iron deficiency anemia due to chronic blood loss Paroxysmal atrial fibrillation Abdominal pain Irritable bowel syndrome with diarrhea Fecal urgency Gas bloat syndrome Loose stools ASHD (arteriosclerotic heart disease) Essential hypertension Gastroesophageal reflux disease with esophagitis without hemorrhage Iron deficiency anemia due to chronic blood loss Irritable bowel syndrome with diarrhea Paroxysmal atrial fibrillation Medicare annual wellness visit, subsequent Chief Complaint Amb Documentation i48.0 z79.899 i48.0 z79.899 discuss low iron treatments stomach pain iron def anemia loose stool loose stool Amb Documentation Medicare Wellness Unknown Reason for Visit ASHD (arteriosclerot ic heart disease) Essential hypertension Gastroesophageal reflux disease with esophagitis without hemorrhage Iron deficiency anemia due to chronic blood loss Paroxysmal atrial fibrillation Abdominal pain Irritable bowel syndrome with diarrhea Fecal urgency Gas bloat syndrome Loose stools ASHD (arteriosclerotic heart disease) Essential hypertension Gastroesophageal reflux disease with esophagitis without hemorrhage Iron deficiency anemia due to chronic blood loss Irritable bowel syndrome with diarrhea Orchitis of both testicles Paroxysmal atrial fibrillation Medicare annual wellness visit, subsequent Reason for Referral Specialty Diagnoses / Procedures Referred By Contac t Referred To Contact Diagnoses Bradycardia Procedures ECG 12 Lead Brendon Baron, DO [address] [facility] [address] [place] [id number] Referral ID Status Reason Start Date Expiration Date V isits Requested Visits Authorized [id number] Authorized 07/25/2023 07/24/2024 1 1 Specialty Diagnoses / Procedures Referred By Contac t Referred To Contact Cardiology Diagnoses Bradycardia H/O non-ST elevation myocardial infarction (NSTEMI) S/P PTCA (percutaneous transluminal coronary angioplasty) Procedures Follow Up In Cardiology Tod Brendon Carissa, DO [address] [facility] [address] [place] [phone] Brendon Baron, DO [address] [facility] [address] [place] [id number] Referral ID Status Reason Start Date Expiration Date V isits Requested Visits Authorized [id number] Authorized 07/25/2023 07/24/2024 1 1 Additional Source Comments (unrecognized sect ion and content) No Status Records FoundNo Status Records FoundNo Status Records FoundNo Status Records FoundNo Status Records FoundNo Status Records FoundNo Status Records FoundNo Status Records Found INFORMATION SOURCE (unrecogn ized section and content) DATE CREATED AUTHOR 06/18/2018 [facility] DATE CREATED AUTHOR AUTHOR'S ORGANIZ ATION 10/24/2022 [facility] DATE CREATED AUTHOR AUTHOR'S ORGANIZ ATION 03/31/2023 [facility] DATE CREATED AUTHOR AUTHOR'S ORGANIZ ATION 04/01/2023 [facility] DATE CREATED AUTHOR AUTHOR'S ORGANIZ ATION 10/18/2023 [facility] DATE CREATED AUTHOR AUTHOR'S ORGANIZ ATION 11/06/2023 [facility] DATE CREATED AUTHOR AUTHOR'S ORGANIZ ATION 11/16/2023 [facility] EPIC DATE CREATED AUTHOR AUTHOR'S ORGANIZ ATION 11/23/2023 [facility] Reason for Visit (unrecogniz ed section and content) Reason Comments Annual Exam Care Teams (unrecognized sec tion and content) Team Status: Active Member Role Status Dates Irving Canela DO Primary Care Provider Active Team Status: Active Member Role Status Dates Irving Canela DO Primary Care Provider Active Start: August 26, 2023 RAHEL Perez Attending Provider Active Start : August 26, 2023 Team Status: Inactive Member Role Status Dates Irving Canela DO Primary Care Provider Active Start: August 29, 2023 End: August 29, 2023 Alfred Baron DO Attending Provider Active S tart: August 29, 2023 End: August 29, 2023 Team Status: Active Member Role Status Dates Irving Canela DO Primary Care Provider Active Start: September 01, 2023 Alfred Baron DO Other Provider Active Start : September 01, 2023 Monty Cruz MD Attending Provider Active Start: September 01, 2023 Team Status: Inactive Member Role Status Dates Irving Canela DO Primary Care Provide r, Attending Provider Active Start: September 14, 2023 End: September 14, 2023 Team Status: Inactive Member Role Status Dates Irving Canela DO Primary Care Provider Active W Murali Baron DO Attending Provider Active Team Status: Active Member Role Status Dates Irving Canela DO Primary Care Provider Active Carlos Corbett Jr, MD Emergency Provider Active Karol Sage MD Admit Provider, Attending Provide r Active Team Status: Inactive Member Role Status Dates Irving Canela DO Primary Care Provider Active Markell Garza MD Attending Provider Active 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 Relationship Specialty Start Date End Date Irving Canela DO PCP - General 06/27/99 Team Status: Inactive Member Role Status Dates Irving Canela DO Primary Care Provide r, Attending Provider Active Start: September 23, 2023 End: September 23, 2023 Team Status: Active Member Role Status Dates Irving Canela DO Primary Care Provide r, Attending Provider Active Start: 2023 Team Status: Inactive Member Role Status Dates Irving Canela DO Primary Care Provider Active Start: October 17, 2023 End: October 17, 2023 Colleen Ochoa MD Attending Provider Active Start: October 17, 2023 End: October 17, 2023 Team Status: Active Member Role Status Dates Irving Canela DO Primary Care Provider Active Start: October 20, 2023 Colleen Ochoa MD Attending Provider Active Start: October 20, 2023 Team Status: Inactive Member Role Status Dates Irving Canela DO Primary Care Provider Active Start: October 26, 2023 End: October 26, 2023 Colleen Ochoa MD Attending Provider Active Start: October 26, 2023 End: October 26, 2023 Team Status: Active Member Role Status Dates Irving Canela DO Primary Care Provider Active Start: October 26, 2023 Colleen Ochoa MD Attending Provider, Other Provider Act andrew Start: October 26, 2023 Team Status: Active Member Role Status Cindy Canela DO Primary Care Provider Active Start: October 29, 2023 Nora Sanchez Attending Provider Active Start: October 29, 2023 Team Status: Inactive Member Role Status Dates Irving Canela DO Primary Care Provide r, Attending Provider Active Start: November 15, 2023 End: November 15, 2023 Team Status: Inactive Member Role Status Dates Miriam Juarez MD Attending Provider Active St art: November 22, 2023 End: November 22, 2023 Team Status: Active Member Role Status Dates Irving Canela DO Primary Care Provider Active Start: November 22, 2023 Miriam Juarez MD Attending Provider Active St art: November 22, 2023 Goals (unrecognized section and content) Goals may be documented in a n alternate sectionGoals may be documented in an alternate sectionNo InformationNo InformationNo InformationNo InformationNo InformationGoals may be documented in an alternate sectionNo InformationGoals may be documented in an alternate sectionNo InformationNo InformationNo InformationNo InformationNo InformationNo InformationGoals may be documented in an alternate sectionNo InformationNo InformationNo InformationNo InformationNo InformationGoals may be documented in an alternate sectionGoals may be documented in an alternate sectionGoals may be documented in an alternate section FOR RECORDS PERTAINING TO PATIENTS WHO ARE OR HAVE BEEN ENROLLED IN A CHEMICAL DEPENDENCY/SUBSTANCEABUSE PROGRAM, SOME INFORMATION MAY BE OMITTED. This clinical summary was aggregated from multiple sources. Caution should be exercised in using it in the provision of clinical care. This summary normalizes information from multiple sources, and as a consequence, information in this document may materially change the coding, format and clinical context of patient data. In addition, data may be omitted in some cases. CLINICAL DECISIONS SHOULD BE BASED ON THE PRIMARY CLINICAL RECORDS. [facility] [employer] [facility]. provides no warranty or guarantee of the accuracy or completeness of information in this document.
--- NOTE | 2023-12-16 20:14 | ECG_ITS ---
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
--- NOTE | 2023-12-16 20:31 | ED.CHESTPAI1 ---
HPI - Chest Pain General Chief Complaint: Chest Pain Stated Complaint: ARM AND JAW PAIN, SAME FEELING BEFORE STENTS PLACE Time Seen by Provider: 12/16/23 20:21 History of Present Illness HPI narrative: past history of CAD s/p stent placement followed by Dr Baron at [facility]. Yesterday jaw discomfort and left arm discomfort. This AM went on 3 mile bike ride and 1 mile walk without symptoms. Afterwards again felt sensation in the jaw and arm discomfort that have resolved. States doesn't feel right. may be anxious. no nausea. Ate before coming here. No dyspnea or diaphoresis. Related Data Home Medications ?Medication ?Instructions ?Recorded ?Confirmed amiodarone 200 mg tablet mg 12/16/23 amlodipine 2.5 mg tablet mg 12/16/23 atorvastatin 40 mg tablet mg 12/16/23 isosorbide mononitrate 30 mg mg PO 12/16/23 tablet,extended release 24 hr loratadine 10 mg tablet mg 12/16/23 pantoprazole 40 mg tablet,delayed mg PO 12/16/23 release trazodone 50 mg tablet mg 12/16/23 Allergies Allergy/AdvReac Type Severity Reaction Status Date / Time clopidogrel [From Plavix] Allergy Mild Verified 12/16/23 20:17 Review of Systems ROS Status of ROS 10 or more systems reviewed and unremarkable except as noted in history and below Exam Constitutional Vital Signs, click to edit/add: Last Vital Signs Pulse 50 L 12/16/23 20:45 Resp 16 12/16/23 20:45 BP 156/73 H 12/16/23 20:45 Pulse Ox 94 L 12/16/23 20:45 Common normals: no apparent distress, average body habitus, oriented x3, no limitations, healthy appearing, alert and well nourished [facility] Common normals: normocephalic and head/scalp atraumatic Eye Common normals: EOMs intact bilaterally and conjunctivae normal Respiratory Common normals: normal respiratory effort, no retractions, no use of accessory muscles and clear to auscultation bilaterally Cardio Common normals: regular rate, regular rhythm, S1 normal heart sound and S2 normal heart sound GI Common normals: Normal to inspection, nondistended, normoactive bowel sounds present, soft to palpation and non-tender Extremity Common normals: normal to inspection and full ROM Neuro Common normals: oriented x3, CN's II-XII intact bilaterally, moves all extremities, no focal motor deficits and no sensory deficits noted Psych Appearance: grossly normal Course Vital Signs Vital signs: Vital Signs Blood Pressure 171/79 H 12/16/23 20:15 Pulse Rate 50 L 12/16/23 20:45 Respiratory Rate 16 12/16/23 20:45 Blood Pressure 156/73 H 12/16/23 20:45 Pulse Oximetry 94 L 12/16/23 20:45 MDM - Chest Pain MDM Narrative Medical decision making narrative: patient with known CAD and stent placement. Has bradycardia that is chronic. no associated symptoms. states experienced jaw ache and left arm pain yesterday that resolved. This AM he went on 3 mile bike ride followed by 1 mile walk and was asymptomatic. later today again felt discomfort in the jaw and left arm pain. Not certain if it is him feeling anxious. Resolved. presents asymptomatic. EKG without acute changes. D-dimer and Troponin neg. cxray without acute findings. Discussed with his transition of care specialist Dr Baron who recommended no changes in his medication and that he could be discharged and follow up within the next 10 days in the office. Patient and informed of the above and patient discharged home with questions answered Lab Data Labs: Lab Results 12/16/23 Range/Units 20:15 WBC 8.8 (4.0-11.0) 10^3/uL RBC 5.43 (4.70-6.10) 10^6/uL Hgb 15.6 (14.0-18.0) g/dL Hct 47.6 (42.0-54.0) % MCV 87.7 (80.0-94.0) fL MCH 28.7 (25.9-34.0) pg MCHC 32.8 (29.9-35.2) g/dL RDW 22.2 H (11.0-15.0) % Plt Count 178 (150-450) 10^3/uL MPV 9.8 (9.5-13.5) fL Neut % (Auto) 62.3 (43.0-75.0) % Lymph % (Auto) 27.3 (20.5-60.0) % [place] % (Auto) 9.0 (1.7-12.0) % Eos % (Auto) 1.0 (0.9-7.0) % Baso % (Auto) 0.3 (0.2-2.0) % Neut # (Auto) 5.5 (1.4-6.5) 10^3/uL Lymph # (Auto) 2.4 (1.2-3.8) 10^3/uL [place] # (Auto) 0.8 (0.3-0.8) 10^3/uL Eos # (Auto) 0.1 (0.0-0.7) 10^3/uL Baso # (Auto) 0.0 (0.0-0.1) 10^3/uL Abs Immat Gran (auto) 0.01 (0.00-0.03) 10^3/uL Imm/Tot Granulo (auto) 0.1 (0.0-0.5) % D-Dimer <0.19 (<=0.59) mg/L FEU Sodium 139 (136-145) mmol/L Potassium 4.0 (3.5-5.1) mmol/L Chloride 105 (98-107) mmol/L Carbon Dioxide 27.8 (21.0-32.0) mmol/L Anion Gap 10.2 BUN 20.0 H (7.0-18.0) mg/dL Creatinine 1.12 (0.70-1.30) mg/dL Est GFR ( Amer) >60 (>=60) Est GFR (Non-Af Amer) >60 (>=60) BUN/Creatinine Ratio 17.9 Glucose 174 H (74-106) mg/dL Calcium 9.0 (8.5-10.1) mg/dL Troponin I High Sens 7.3 (4.0-76.1) pg/mL NT-Pro-B Natriuret Pep 129.0 (<=1800.0) pg/mL Discharge Plan Discharge Stand Alone Forms: Portal Instructions Chief Complaint: Chest Pain Clinical Impression: Atypical chest pain, Bradycardia Patient Disposition: Home, Self-Care Prescriptions / Home Meds: No Action atorvastatin 40 mg tablet trazodone 50 mg tablet amiodarone 200 mg tablet isosorbide mononitrate 30 mg tablet extended release 24 hr PO amlodipine 2.5 mg tablet pantoprazole 40 mg tablet,delayed release (DR/EC) PO loratadine 10 mg tablet Print Language: Brazilian Instructions: Chest Pain (ED), Bradycardia (ED) Additional Instructions: call Dr Baron'saeid off tuesday for follow up next week Referrals: Irving Cooley DO [Primary Care Provider] - 1 week
--- NOTE | 2023-12-16 20:37 | XR_ITS ---
The [place] [id number] Patient Name: ADELE BUCKNER MRN: [id number] date: 1940 Sex: M Assigned Patient Location: ER Current Patient Location: Accession/Order Number: [id number] Exam Date: 12/16/2023 20:48 Report Date: 12/16/2023 21:47 At the request of: LAURA RICCI Procedure: XR chest 1V EXAM: XR chest 1V HISTORY: chest pain COMPARISON: 10/01/2021 TECHNIQUE: AP upright chest x-ray for FINDINGS: Lungs clear without infiltrate or edema. Heart size magnified felt to be stable. No pleural effusion or pneumothorax. XR/XR chest 1V IMPRESSION: Stable chest x-ray, no acute findings. Electronically authenticated by: ALFREDITO OWENS Date: 12/16/2023 21:47
[2023-12-16 20:45] LABS: Basophils Percent Auto 0.3 % (0.2-2.0); Eosinophils Absolute Auto 0.1 10^3/uL (0.0-0.7); Hematocrit 47.6 % (42.0-54.0); Hemoglobin 15.6 g/dL (14.0-18.0); Immature Granulocytes Abs Auto 0.01 10^3/uL (0.00-0.03); Immature Granulocytes Pct Auto 0.1 % (0.0-0.5); Lymphocytes Absolute Auto 2.4 10^3/uL (1.2-3.8); Lymphocytes Percent Auto 27.3 % (20.5-60.0); Mean Corpuscular HGB Conc 32.8 g/dL (29.9-35.2); Mean Corpuscular Hemoglobin 28.7 pg (25.9-34.0); Mean Corpuscular Volume 87.7 fL (80.0-94.0); Mean Platelet Volume 9.8 fL (9.5-13.5); Monocytes Absolute Auto 0.8 10^3/uL (0.3-0.8); Neutrophils Absolute Auto 5.5 10^3/uL (1.4-6.5); Neutrophils Percent Auto 62.3 % (43.0-75.0); Platelet Count 178 10^3/uL (150-450); Red Blood Count 5.43 10^6/uL (4.70-6.10); Red Cell Distribution Width 22.2 % (11.0-15.0); White Blood Count 8.8 10^3/uL (4.0-11.0)
--- NOTE | 2023-12-16 20:47 | PC.NURSE ---
Stents placed 2 years ago
[2023-12-16 20:57] LABS: D Dimer <0.19 mg/L FEU (<=0.59)
[2023-12-16 21:10] LABS: Anion Gap 10.2; BUN Creatinine Ratio 17.9; Carbon Dioxide 27.8 mmol/L (21.0-32.0); Chloride 105 mmol/L (98-107); Estimated GFR (African America >60 (>=60); Estimated GFR (Non-African Ame >60 (>=60); Glucose 174 mg/dL (74-106); Sodium 139 mmol/L (136-145); Troponin I High Sensitivity 7.3 pg/mL (4.0-76.1)
== END 2023-12-16 21:33 | disposition home or self-care (01) ==
PROVIDERS: Emergency Provider Internal Medicine; PCP Internal Medicine
DX: R07.89 Other chest pain (principal); R00.1 Bradycardia, unspecified; I25.10 Atherosclerotic heart disease of native coronary artery without angina pectoris; Z95.5 Presence of coronary angioplasty implant and graft
CPT/HCPCS: 36415; 71045; 80048; 83880; 84484; 85025; 85378; 93005; 99285

== ENCOUNTER 2024-02-03 13:15 | Outpatient (OUT) | payer MEDICARE, OTHER, SELFPAY ==
--- NOTE | 2024-02-03 13:30 | XR_ITS ---
The [address] [id number] Patient Name: ADELE BUCKNER MRN: [id number] date: 1940 Sex: M Assigned Patient Location: [facility] Current Patient Location: Accession/Order Number: [id number] Exam Date: 02/03/2024 13:25 Report Date: 02/07/2024 06:39 At the request of: DARRICK WHEAT Procedure: XR abdomen 1V EXAMINATION: XR abdomen 1V HISTORY: Loose Stools, Rectal Urgency COMPARISON: No relevant comparison available. FINDINGS: BOWEL GAS PATTERN: No abnormal dilation or deviation. No significant stool burden or large amount of stool within the rectal vault. CALCIFICATIONS: None significant. OTHER: Negative. No abnormal gaseous collections. XR/XR abdomen 1V IMPRESSION: 1. No suspicious findings to account for patient's symptoms. Electronically authenticated by: LYNDA BYNUM Date: 02/07/2024 06:39
--- OUTSIDE RECORDS SUMMARY | 2024-02-03 13:35 | XMS_ITS | CCD ---
Author Organization [facility] Care Team Providers Care Combiner Name Role Phone AHMED, ANNA Unavailable Unavailable AHMED, ANNA Unavailable Unavailable ROLA, IRVING Unavailable Unavailable AHMED, ANNA Unavailable Unavailable PHYSICIAN, DEFAULT Unavailable Unavailable PHYSICIAN, DEFAULT Unavailable Unavailable ROLA, IRVING Unavailable Unavailable Irving Canela Unavailable Unavailable Unavailable Rola, DO Villatoro Primary Care Provider [phone] DO Alfred Baron Attending Provider [phone] Rola, DO Villatoro Primary Care Provider DO Alfred Baron Attending Provider [phone] Irving Canela Unavailable Rola, DO Villatoro Primary Care Provider DO Alfred Baron Attending Provider [phone] ROLA, DR VILLATORO Primary Care Unavailable MISC, [...] Unavailable BALL, DR VILLATORO Primary Care Unavailable SEYMOUR, DR KIKA Carranza Consulting Unavailable EUBANKS, DR [...] Emergency Provider MD Karol Sage Admit Provider [phone] MD Karol Sage Attending Provider [phone] Markell Garza Unavailable [phone] DO Irving Canela Primary Care Provider DO Alfred Baron Attending Provider Dr. Irving Canela Primary Care Hayden Baron, Dr. Brendon Carrion Attending Eliezer Baron, Dr. Brendon Carrion Referring Eliezer Aden, Ms. Florence Vergara Referring Hayden Aden, Ms. Florence Vergara Attending Hayden Canela, Dr. Irving Dumont Primary Care Hayden Aden, Ms. Florence Vergara Attending Hayden Canela, Dr. Irvign Dumont Primary Care Rose Ochoa Attending Unavailable Rose Green Referring Unavailable Ball, Dr. Irving Dumont Primary Care Hayden Aden, Ms. Florence Vergara Referring Hayden Canela, Dr. Irving Dumont Primary Care Hayden Aden, MsPam Vergara Attending Hayden Aden, Ms. Florence Vergara Referring Hayden julius Canela, Dr. Irving Dumont Primary Care Hayden Aden, Ms. Florence Vergara Attending Hayden Aden, Ms. Florence Vergara Referring Hayden tongama Canela, Dr. Irving Dumont Primary Care Hayden Aden, Ms. Florence Vergara Attending MD Markell Rosales Attending Provider Irving Canela DO Primary Care Provider DO Irving Canela Primary Care Provider DO Alfred Baron Attending Provider Bethel CHAIREZ Attending Unavailable PETITTBASHIR Seay Attending Unavailable PETITTDawood, BASHIR Buchanan Attending Unavailable PETBASHIR OWENS Attending Unavailable CHELSEY, BASHIR Buchanan Attending Unavailable MD Colleen Ochoa Attending Provider MD Miriam Juarez Attending Provider [phone] Miriam Juarez Admitting Unavailable Miriam Juarez Attending Unavailable Alfred Baron Attending Unavailable Rola Irving Primary Care Unavailable Alfred Baron Admitting Unavailable Alfred Baron Admitting Unavailable Alfred Baron Attending Unavailable Irving Canela Primary Care Unavailable Rola Irving Primary Care Unavailable Asaad, Imfely Admitting Unavailable AsaadColleen Attending Unavailable Irving Canela Primary Care Unavailable Markell Garza Admitting UnavailMarkell Crook Attending Unavailemre e BRENDON BARON Referring Unavailable IRVING CANELA Primary Care Unavailable BRENDON BARON Referring Unavailable IRVING CANELA E Primary Care Unavailable BRENDON BARON Attending Unavailable IRVING CANELA Primary Care Unavailable TODBRENDON CONKLIN Attending Unavailable IRVING CANELA E Primary Care Unavailable Allergies Allergy Classification Reported Allergen(s) Allergy Type Date of Onset Reaction(s) Facility Platelet Inhibitors (P2Y12, not including aspirin) (1 source) clopidogrel Drug Allergy 11-15-2023 [facility] Repository (3 sources) clopidogrel; Translations: [Plavix] Drug Allergy 06-09-2016 [facility] Repository (1 source) Ticagrelor Drug Allergy 06-09-2016 [facility] Repository (20 sources) clopidogrel; Translations: [Plavix] Drug Allergy 06-24-2023 [facility] (8 sources) clopidogrel; Translations: [CLOPIDOGREL] Drug Allergy 06-12-2021 [facility] (1 source) prasugrel Drug Allergy [facility] Repository Medications Current Medications Medication Drug Class(es) [...] MG PO Daily June 12, 2021 1:00am nitroglycerin 0.4 mg sublingual tablet (20 sources) Nitrate Vasodilator Start: 09-13-2023 Nitroglycerin Active 0.4 MG SUBLINGUAL .COMPLEX September 13, [...] a day for 30 days Aug, Active zinc gluconate 50 mg oral tablet (20 [...] 12, 2021 1:00am September 13, 2023 11:53am Loratadine (20 sources) Start: 12-15-2023 End: 02-02-2024 take 1 tablet by mouth once daily Loratadine Discontinued 0 .ROUTE .COMPLEX December 15, 2023 8:40am February 02, 2024 11:26am TAKE 1 TABLET BY MOUTH EVERY DAY Start: 06-12-2021 End: 12-15-2023 take 10 mg by mouth once daily Loratadine Discontinued 10 MG PO Daily June 12, 2021 1:00am December 15, 2023 8:40am take 1 tablet by tavo th once daily loratadine 10 mg capsule Take 1 tablet by mouth once daily. 0 Active 24 hr metoprolol succinate 50 mg extended release oral tablet (14 sources) beta-Adrenergic Mulugeta Start: 06-13-2021 End: 10-29-2022 take 50 mg by mouth once daily Metoprolol Succinate Discontinued 50 MG PO Daily June 13, 2021 1:00am October 29, 2022 12:18am sulfamethoxazole 800 mg / trimethoprim 160 mg oral tablet (3 sources) Dihydrofolate Reductase Inhibitor Antibacterial, Sulfonamide Antimicrobial Start: 11-15-2023 End: 02-02-2024 take 1 tablet by mouth twice daily Sulfamethoxazole- Trimethoprim Discontinued 1 TAB PO Twice daily 15 04November 15, 2023 12:00am February 02, 2024 11:26am ticagrelor 90 mg oral tablet (20 sources) Start: 06-13-2021 End: 10-29-2022 take 1 tablet by mouth twice daily Ticagrelor (Brilinta) 90 mg tablet Discontinued 90 MG PO Twice daily June 13, 2021 1:00am October 29, 2022 12:18am traZODone hydrochloride 50 mg oral tablet (13 sources) Serotonin Reuptake Inhibitor Start: 08-26-2023 End: 10-26-2023 take 50 mg by mouth once daily at bedtime Trazodone Discontinued 50 MG PO Daily at bedtime August 26, 2023 6:03pm October 26, 2023 8:34am Start: 08-04-2023 take 0.5-1 tablets b y mouth once at bedtime traZODone HCl 50 MG 1/2 - 1 tablet Orally q HS for 30 days Jul, Active Zinc (12 sources) Start: 06-12-2021 End: 04-21-2023 take 50 [...] Date Documented Da te Episodic/Chronic Abdominal pain (14 sources) Right upper quadrant pain; Translations: [Right [...] 5 06-13-2021 Chronic Deficiency and other anemia (8 sources) Iron deficiency anemia due to blood loss; Translations: [Iron deficiency anemia secondary to blood loss (chronic)] 09-14-2023 Chronic Deficiency and other anemia (10 sources) Iron deficiency anemia secondary to blood [...] anus and rectum] Episodic Headache; including migraine (13 sources) Episodic tension-type headache; Translations: [Episodic tension-type headache, not intractable] 09-13-2023 Chronic Immunizations and screening for infectious disease (4 sources) Vaccination given; Translations: [Encounter for immunization] Episodic Inflammatory conditions of male genital organs (4 sources) Orchitis; Translations: [Orchitis] 11-15-2023 Episodic Influenza [...] sources) Primary insomnia; Translations: [Primary insomnia] Chronic Nonspecific chest pain (13 sources) Chest pain, unspecified; Translations: [Chest pain] Onset: 5 Episodic Occlusion or stenosis of precerebral arteries (4 sources) Carotid artery occlusion; Translations: [Occlusion and stenosis of unspecified carotid artery] Onset: 7 Chronic Osteoarthritis (20 sources) Arthritis of right hip; Translations: [Unilateral primary osteoarthritis, right hip] Chronic Other aftercare (1 source) penitentiary (current) use of aspirin; Translations: [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 (CURRENT) USE OF ASPIRIN] Onset: 8 Episodic Other aftercare (20 sources) Drug therapy finding; Translations: [Long-term (current) use of anticoagulants] Episodic Other aftercare (3 sources) Other middle or intermediate school principal (current) drug therapy; Translations: [Other middle or intermediate school principal (current) drug therapy] Onset: 4 Episodic Other and unspecified benign neoplasm (17 sources) Benign neoplasm of colon; Translations: [Benign neoplasm of descending colon] Episodic Other and unspecified benign neoplasm (1 source) Benign neoplasm of descending colon Episodic Other and unspecified benign neoplasm (4 sources) Benign neoplasm of descending colon; Translations: [Benign neoplasm of descending colon] Episodic Other and unspecified benign neoplasm (6 sources) Adenomatous polyp of colon ; Translations: [...] with diarrhea] 09-13-2023 Chronic Other gastrointestinal disorders (12 sources) Irritable bowel syndrome with diarrhea; Translations: [Irritable bowel syndrome] Chronic Other gastrointestinal disorders (4 sources) Irritable bowel syndrome characterized by constipation; Translations: [Irritable bowel syndrome with constipation] Onset: Chronic Other gastrointestinal disorders (4 sources) Fecal urgency; Translations: [Fecal urgency] Episodic Other gastrointestinal disorders (1 source) Change in bowel habit Episodic Other gastrointestinal disorders (2 sources) Altered bowel function; Translations: [Other specified symptoms and signs involving the digestive system and abdomen] 04-21-2023 Episodic Other gastrointestinal disorders (4 sources) Loose stool; Translations: [Other fecal abnormalities] 10-17-2023 Episodic Other gastrointestinal disorders (4 sources) Disorder of gastrointestinal tract; Translations: [Other specified diseases of the digestive system] 10-17-2023 Episodic Other gastrointestinal disorders (4 sources) Urgent desire for stool; Translations: [Fecal [...] abnormalities] 10-28-2022 Episodic Other lower respiratory disease (6 sources) Nodule of lung; Translations: [Solitary pulmonary nodule] 09-13-2023 Episodic Other nervous system disorders (11 sources) Hereditary disorder of nervous system; Translations: [Hereditary and idiopathic neuropathy, unspecified] Chronic Other nervous system disorders (1 source) Other chronic pain; Translations: [OTHER CHRONIC PAIN] Onset: 2 Chronic Other nervous system disorders (6 sources) Neuropathy; Translations: [Hereditary and idiopathic neuropathy, unspecified] 09-13-2023 Chronic Other nervous system disorders (20 sources) Paresthesia; Translations: [Paresthesia of skin] 09-13-2023 Episodic Other non-epithelial cancer of skin (17 sources) Basal cell carcinoma; Translations: [Basal cell [...] metabolic disorders (2 sources) Overweight Episodic Other nutritional; endocrine; and metabolic disorders (2 sources) Body mass index (BMI) 28.0-28.9, adult; Translations: [Body mass index (BMI) 28.0-28.9, adult] Onset: 4 Episodic Other upper respiratory disease (11 sources) [...] unspecified chronic kidney disease] Resolved: 06-02-2022 Chronic Other connective tissue disease (1 source) Myalgia, [...] Test Name Value Interpretation Reference Range Facility NUCLEAR STRESS TESTon 2023 NUCLEAR STRESS TEST Interpreted By: Rose Green and Giannuzzi Michael STUDY: MYOCARDIAL PERFUSION STRESS TEST WITH EXERCISE Performing facility: [facility], [address] [place] [address], [address], [place] [id number] [facility] Provider: August Baron DO [facility] PCP: Dr. Nohemy Canela Supervising provider: August Baron DO, FACC INDICATION: Chest Pain; HISTORY: Gender: M; Age: 83 y/o ; Height: HT 175.3 cm cm; Weight: WT 88.451 kg kg. CAD; High Cholesterol; Previous DE; HTN; Arrhythmias; Chest Pain; Quit smoking Unknown years ago. Cardiac catheterization on 2014, 2015, 2020. PTCA on 2014,2015, 2020. COMPARISON: Previous nuclear testing completed [id number] at [facility]. ACCESSION NUMBER(S): [id number] ORDERING CLINICIAN: BRENDON BARON TECHNIQUE: ONE DAY protocol. Stress injection: Date:01-02-24, 34.6 mCi of Myoview IV at peak exercise. Rest injection: Date: 01-02-24, 11.3 mCi of Myoview IV at rest. Imaging was performed by gated tomographic technique. STRESS TEST DATA: Resting heart rate was 49 BPM. Resting blood pressure was 122/82 mmHg. The patient exercised using a Vito exercise protocol. 9:51 minutes exercised. 99 % of MPHR achieved for age. 11.40 METS achieved. Maximum heart rate was 137 BPM. Maximum blood pressure was 158/82 mmHg. DTS N/A. TEST TERMINATED DUE TO: Fatigue FINDINGS: STRESS TEST RESULTS: Resting electrocardiogram revealed sinus bradycardia with first-degree AV block. The patient had no significant ECG changes with maximal stress. The patient did not have chest pains/symptoms during the procedure. There was a normal recovery phase. There were no significant dysrhythmias. IMAGING RESULTS: Image quality was good. Rest and stress tomographic images were reviewed and revealed normal perfusion without evidence of ischemia, myocardial infarction, or left ventricular dilatation with stress. Overall left ventricular systolic function appeared to be normal without regional wall motion abnormalities. LV ejection fraction was 57 %. TID is 0.94 and is normal. There was evidence of diaphragmatic attenuation artifact. IMPRESSION: Normal exercise Myoview cardiac perfusion stress test. No evidence of ischemia or myocardial infarction by perfusion imaging. Normal left ventricular systolic function, ejection fraction 57%. No exercise provoked significant ischemic ECG changes or chest pain symptoms. No previous studies are available for comparison. Signed by: Rose Green 01/04/2024 4:22 PM Dictation workstation: [id number] [facility] Basophils Auto (Bld) [#/Vol] on 12-16-2023 Basophils (Bld) [#/Vol] 0.0 10 3/uL 0.0-0.1 [facility] Basophils/100 WBC Auto (Bld) on 12-16-2023 Basophils/100 WBC (Bld) 0.3 % 0.2-2.0 [facility] Eosinophils/100 WBC Auto (Bl d)on 12-16-2023 Eosinophils/100 WBC (Bld) 1.0 % 0.9-7.0 [facility] Erythrocyte distribution wid th Auto (RBC) [Ratio]on 12-16-2023 Erythrocyte distribution width (RBC) [Ratio] 22.2 % High 11.0-15.0 [facility] Estimated glomerular filtrat ion rate (GFR) non- Americanon 12-16-2023 GFR/1.73 sq M.predicted among non-blacks MDRD (S/P/Bld) [Vol rate/Area] mL/min/{1.73_m2} >=60 [facility] Fibrin D-dimer [Presence] in Platelet poor plasma by Latex agglutinationon 12-16-2023 Fibrin D-dimer LA Ql (PPP) <0.19 mg/L FEU <=0.59 [facility] Comment on above: Increases in D-Dimer concentration observed withthromboembolic events can be variable due to localization,size, and age of the thrombus. Therefore, a thromboembolicevent cannot be diagnosed with certainty on the basis of thereference range. D-Dimers may also be elevated for a varietyof disorders including advanced age, , coronarydisease, cancer, liver disease, infection, inflammation,hematoma, DIC, trauma, post-surgery, diabetes, thrombolyticor anticoagulant therapy, stress, and generalizedhospitalization. Hematocrit Auto (Bld) [Volum e fraction]on 12-16-2023 Hematocrit (Bld) [Volume fraction] 47.6 % 42.0-54.0 [facility] Hemoglobin [Mass/volume] in Bloodon 12-16-2023 Hemoglobin (Bld) [Mass/Vol] 15.6 g/dL 14.0-18.0 [facility] Laboratory - Chemistry and C hemistry - challengeon 12-16-2023 Calcium [Mass/Vol] 9.0 mg/dL 8.5-10.1 [facility] Chloride [Moles/Vol] 105 mmol/L 98-107 [facility] CO2 [Moles/Vol] 27.8 mmol/L 21.0-32.0 [facility] Creatinine [Mass/Vol] 1.12 mg/dL 0.70-1.30 [facility] GFR/1.73 sq M.predicted MDRD (S/P/Bld) [Vol rate/Area] mL/min/{1.73_m2} >=60 [facility] Glucose [Mass/Vol] 174 mg/dL High 74-106 [facility] Natriuretic peptide B (Bld) [Mass/Vol] 129.0 pg/mL <=1800.0 [facility] Potassium [Moles/Vol] 4.0 mmol/L 3.5-5.1 [facility] Sodium [Moles/Vol] 139 mmol/L 136-145 [facility] Urea nitrogen [Mass/Vol] 20.0 mg/dL High 7.0-18.0 [facility] Urea nitrogen/Creatinine [Mass ratio] 17.9 mg/mg [facility] Laboratory - Hematology and Cell countson 12-16-2023 Immature granulocytes/100 WBC (Bld) 0.1 % 0.0-0.5 [facility] Leukocytes [#/volume] correc augustine for nucleated erythrocytes in Blood by Automated counon 12-16-2023 WBC corrected for nucl RBC Auto (Bld) [#/Vol] 8.8 10 3/uL 4.0-11.0 [facility] Lymphocytes Auto (Bld) [#/Vo l]on 12-16-2023 Lymphocytes (Bld) [#/Vol] 2.4 10 3/uL 1.2-3.8 [facility] Lymphocytes/100 WBC Auto (Bl d)on 12-16-2023 Lymphocytes/100 WBC (Bld) 27.3 % 20.5-60.0 [facility] MCH Auto (RBC) [Entitic mass ]on 12-16-2023 MCH (RBC) [Entitic mass] 28.7 pg 25.9-34.0 [facility] MCHC Auto (RBC) [Mass/Vol]on 12-16-2023 MCHC (RBC) [Mass/Vol] 32.8 g/dL 29.9-35.2 [facility] MCV Auto (RBC) [Entitic vol] on 12-16-2023 MCV (RBC) [Entitic vol] 87.7 fL 80.0-94.0 [facility] Monocytes Auto (Bld) [#/Vol] on 12-16-2023 Monocytes (Bld) [#/Vol] 0.8 10 3/uL 0.3-0.8 [facility] Monocytes/100 WBC Auto (Bld) on 12-16-2023 Monocytes/100 WBC (Bld) 9.0 % 1.7-12.0 [facility] Neutrophils Auto (Bld) [#/Vo l]on 12-16-2023 Neutrophils (Bld) [#/Vol] 5.5 10 3/uL 1.4-6.5 [facility] Neutrophils/100 WBC Auto (Bl d)on 12-16-2023 Neutrophils/100 WBC (Bld) 62.3 % 43.0-75.0 [facility] No Panel Informationon 12-15 Eosinophils # (Auto) 0.1 10 3/uL 0.0-0.7 [facility] Immature Granulocyte # (Auto) 0.01 10 3/uL 0.00-0.03 [facility] Troponin I High Sensitivity 7.3 pg/mL 4.0-76.1 [facility] Comment on above: CUT-OFF POINTS HAVE BEEN ESTABLISHED BASED ON THE FOURTHUNIVERSAL DEFINITION OF MYOCARDIAL INFARCTION. THE UPPERREFERENCE LIMIT (URL) OF TROPONIN, DEFINED THE 99THPERCENTILE OF cTnI DISTRIBUTION IN A REFERENCE POPULATION,HAS BEEN CONFIRMED THE DECISION THRESHOLD FOR MIDIAGNOSIS.99TH PERCENTILE = 76.2 PG/MLNOTE: HIGH-SENSITIVITY TROPONIN ASSAY IS NOT INTENDED TO BEUSED IN ISOLATION BUT SHOULD BE INTERPRETED IN CONJUNCTIONWITH OTHER DIAGNOSTIC AND CLINICAL INFORMATION. Platelet mean volume Auto (B ld) [Entitic vol]on 12-16-2023 Platelet mean volume (Bld) [Entitic vol] 9.8 fL 9.5-13.5 [facility] Platelets Auto (Bld) [#/Vol] on 12-16-2023 Platelets (Bld) [#/Vol] 178 10 3/uL 150-450 [facility] RBC Auto (Bld) [#/Vol]on RBC (Bld) [#/Vol] 5.43 10 6/uL 4.70-6.10 [facility] Serum or plasma anion gap de terminationon 12-16-2023 Anion gap [Moles/Vol] 10.2 mmol/L [facility] Basophils Auto (Bld) [#/Vol] on 11-22-2023 Basophils (Bld) [#/Vol] 0.0 10 3/uL 0.0-0.1 [facility] Basophils/100 WBC Auto (Bld) on 11-22-2023 Basophils/100 WBC (Bld) 0.6 % 0.2-2.0 [facility] Eosinophils/100 WBC Auto (Bl d)on 11-22-2023 Eosinophils/100 WBC (Bld) 2.6 % 0.9-7.0 [facility] Erythrocyte distribution wid th Auto (RBC) [Ratio]on 11-22-2023 Erythrocyte distribution width (RBC) [Ratio] 24.3 % High 11.0-15.0 [facility] Ferritinon 11-22-2023 Ferritin [Mass/Vol] 146.7 ng/mL Normal 23.9-336.2 [facility] Comment on above: Result Comment: PERF ORMED BY: [place] [address] PATHOLOGIST WHARFMASTER GABINO ARCOS M.D. Performed By: #### F ER #### [address] Ferritin [Mass/volume] in Se rum or PlasmaOrdered By: Miriam Juarez on 11-22-2023 Ferritin [Mass/Vol] 146.7 ng/mL 23.9-336.2 [facility] Hematocrit Auto (Bld) [Volum e fraction]on 11-22-2023 Hematocrit (Bld) [Volume fraction] 47.9 % 42.0-54.0 [facility] Hemoglobin [Mass/volume] in Bloodon 11-22-2023 Hemoglobin (Bld) [Mass/Vol] 15.3 g/dL 14.0-18.0 [facility] Iron binding capacity [Mass/ volume] in Serum or Plasmaon 11-22-2023 Iron binding capacity [Mass/Vol] 293.0 ug/dL 250.0-450.0 [facility] Iron saturation [Mass Fracti on] in Serum or Plasmaon 11-22-2023 Iron saturation [Mass fraction] 28.3 % [facility] Laboratory - Chemistry and C hemistry - challengeon 11-22-2023 Iron [Mass/Vol] 83.0 ug/dL 65.0-175.0 [facility] Laboratory - Hematology and Cell countson 11-22-2023 Immature granulocytes/100 WBC (Bld) 0.3 % 0.0-0.5 [facility] Leukocytes [#/volume] correc augustine for nucleated erythrocytes in Blood by Automated counon 11-22-2023 WBC corrected for nucl RBC Auto (Bld) [#/Vol] 7.2 10 3/uL 4.0-11.0 [facility] Lymphocytes Auto (Bld) [#/Vo l]on 11-22-2023 Lymphocytes (Bld) [#/Vol] 1.8 10 3/uL 1.2-3.8 [facility] Lymphocytes/100 WBC Auto (Bl d)on 11-22-2023 Lymphocytes/100 WBC (Bld) 25.3 % 20.5-60.0 [facility] MCH Auto (RBC) [Entitic mass ]on 11-22-2023 MCH (RBC) [Entitic mass] 27.8 pg 25.9-34.0 [facility] MCHC Auto (RBC) [Mass/Vol]on 11-22-2023 MCHC (RBC) [Mass/Vol] 31.9 g/dL 29.9-35.2 [facility] MCV Auto (RBC) [Entitic vol] on 11-22-2023 MCV (RBC) [Entitic vol] 86.9 fL 80.0-94.0 [facility] Monocytes Auto (Bld) [#/Vol] on 11-22-2023 Monocytes (Bld) [#/Vol] 0.9 10 3/uL High 0.3-0.8 [facility] Monocytes/100 WBC Auto (Bld) on 11-22-2023 Monocytes/100 WBC (Bld) 12.3 % High 1.7-12.0 [facility] Neutrophils Auto (Bld) [#/Vo l]on 11-22-2023 Neutrophils (Bld) [#/Vol] 4.3 10 3/uL 1.4-6.5 [facility] Neutrophils/100 WBC Auto (Bl d)on 11-22-2023 Neutrophils/100 WBC (Bld) 58.9 % 43.0-75.0 [facility] No Panel Informationon 11-21 Eosinophils # (Auto) 0.2 10 3/uL 0.0-0.7 [facility] Immature Granulocyte # (Auto) 0.02 10 3/uL 0.00-0.03 [facility] Platelet mean volume Auto (B ld) [Entitic vol]on 11-22-2023 Platelet mean volume (Bld) [Entitic vol] 9.7 fL 9.5-13.5 [facility] Platelets Auto (Bld) [#/Vol] on 11-22-2023 Platelets (Bld) [#/Vol] 184 10 3/uL 150-450 [facility] RBC Auto (Bld) [#/Vol]on RBC (Bld) [#/Vol] 5.51 10 6/uL 4.70-6.10 [facility] Paulo 10-26-2023 L Specimen: [id number] Received: 10/26/23 Status: ANSHUL Zarate Num: [id number] Spec Type: Surgical Subm Dr: Colleen Ochoa MD Tissues: A Colon Biopsy (RANDOM COLON BX) B Colon Biopsy (RECTAL POLYPS) Procedures: HE/4, Gross/Micro L4/2 Age/ Patient Sex Location Account Attending Physician Valentín Buckner 83/M [id number] Colleen Ochoa MD SPEC NUM: [id number] RECD: 10/26/23 STATUS: ANSHUL ELLIOT NUM: [id number] MODESTA: 10/26/23- SUBM DR: Colleen Ochoa MD ENTERED: 10/26/[address]: SPEC TYPE: Surgical DEPT: S ORDERED: [...] history: Loose stools. Rule out microscopic colitis ---- Specimen: [id number] Received: 10/26/23 Status: ANSHUL Zarate Num: [id number] Spec Type: Surgical Subm Dr: Colleen Ochoa MD Tissues: A Colon Biopsy (RANDOM COLON BX) B Colon Biopsy (RECTAL POLYPS) Procedures: MARCELASilver, Gross/Micro L4/2 ---- Patient: Valentín Buckner [id number] ([facility]) ---- Specimen: [id number] Received: 10/26/23 (Continued) Signed (signature on file) Kika Jade MD 10/27/237 ---- Specimen: Received: 10/26/23 Status: ANSHUL Elliot Num: [id number] Spec Type: Surgical Subm Dr: Colleen Ochoa MD Tissues: A Colon Biopsy (RANDOM COLON BX) B Colon Biopsy (RECTAL POLYPS) Procedures: Naga RIVERA/Jose L4/2 ---- Patient: Valentín Buckner [id number] (Continued) ---- Specimen: Received: 10/26/23 (Continued) CPT Codes 51232i1 ---- ---- Specimen: [id number] Received: 10/26/23 Status: KOJOMiguel Elliot Num: [id number] Spec Type: Surgical Subm Dr: Colleen Ochoa MD Tissues: A Colon Biopsy (RANDOM COLON BX) B Colon Biopsy (RECTAL POLYPS) Procedures: MARCELA/Silver, Naga/Jose L4/2 ---- Patient: Valentín Buckner [id number] (Continued) ---- Signed (signature on file) Kika Jade MD 10/27/23 1127 Normal [facility] Elastase.pancreatic [Mass/ma ss] in Stoolon 10-20-2023 Elastase.pancreatic (Stl) [Mass/Mass] 242 >200 [facility] Comment on above: Result Units: ug Marissa st./g Severe Pancreatic Insufficiency: <100 Moderate Pancreatic Insufficiency: 100 - 200 Normal: >200Performed at: - [facility] [id number] Director: Christophe Matthew MD, Phone: [phone] HIV 1 and HIV-2 antibody ass ay with HIV-1 p24 antigen detectionon 10-20-2023 HIV 1+2 Ab+HIV1 p24 Ag IA Ql Non-Reactive Non Reactive [facility] Comment on above: HIV NegativeHIV-1/HI V-2 antibodies and HIV-1 p24 antigen were NOTdetected. There is no laboratory evidence of HIV infection.Performed at: - [facility] [address] [id number] Director: Terell Silva PhD, Phone: [phone] IgA [Mass/volume] in Serum o r Plasmaon 10-20-2023 IgA [Mass/Vol] 150 mg/dL 61-437 [facility] Comment on above: Performed at: CB - L [facility] [address] [id number] Director: Terell Silva PhD, Phone: [phone] Laboratory - Chemistry and C hemistry - challengeon 10-20-2023 TSH Qn 1.511 m[IU]/L 0.358-3.740 [facility] Laboratory - Hematology and Cell countson 10-20-2023 ESR (Bld) [Velocity] 12 mm/h <=20 [facility] No Panel Informationon 10-19 C-Reactive Protein, Quantitative <0.50 mg/dL <=0.50 [facility] Endomysial IgA Antibody Negative Negative [facility] Clostridium difficile (PCR)(LAB) Negative NEGATIVE [facility] Miscellaneous Test Comment See comment [facility] Comment on above: Specimen Source: ST - Stool - Stool - 700.100 Ova & Parasite Result 1 Comment . [facility] Comment on above: No ova, cysts, or pa rasites seen.One negative specimen does not rule out the possibility ofa parasitic infection.Performed at: - [facility] [address] [id number] Director: Terell Silva PhD, Phone: [phone] Ova and Parasites (LAB) Final report . [facility] Comment on above: These results were o btained using wet preparation(s) andtrichrome stained smear. This test does not include testingfor Cryptosporidium parvum, Cyclospora, or Microsporidia. Stool Calprotectin 102 ug/g 0-120 [facility] Comment on above: Concentration Interp retation Follow-Up< 5 - 50 ug/g Normal None>50 -120 ug/g Borderline Re-evaluate in 4-6 weeks >120 ug/g Abnormal Repeat as clinically indicatedPerformed at: - [facility] [id number] Director: Christophe Matthew MD, Phone: [phone] Stool Campylobacter Culture Res 1 See comment [facility] Comment on above: [facility], No Panel InformationOrdered By: Colleen Ochoa on 10-20-2023 E coli Shiga Toxin EIA [facility] Salmonella/Shigella Screen [facility] Serum gliadin peptide IgA an tibody assay (units/volume)on 10-20-2023 Gliadin peptide IgA Qn (S) 3 units 0- [facility] Comment on above: Negative 0 - 19 Weak Positive 20 - 30 Moderate to Strong Positive >30 Serum gliadin peptide IgG an tibody assay (units/volume)on 10-20-2023 Gliadin peptide IgG Qn (S) 2 units 0- [facility] Comment on above: Negative 0 - 19 Weak Positive 20 - 30 Moderate to Strong Positive >30 Serum tissue transglutaminas e (tTG) IgA antibody assay (units/volume)on 10-20-2023 tTG IgA Qn (S) <2 U/mL 0-3 [facility] Comment on above: Negative 0 - 3 Weak Positive 4 - 10 Positive >10 Tissue Transglutaminase (tTG) has been identified as the endomysial antigen. Studies have demonstr- ated that endomysial IgA antibodies have over 99% specificity for gluten sensitive enteropathy. Serum tissue transglutaminas e (tTG) IgG antibody assay (units/volume)on 10-20-2023 tTG IgG Qn (S) 3 U/mL 0-5 [facility] Comment on above: Negative 0 - 5 Weak Positive 6 - 9 Positive >9 Albumin [Mass/volume] in Ser um or Plasmaon 2023 Albumin [Mass/Vol] 4.0 g/dL 2.9-4.4 [facility] Basophils Auto (Bld) [#/Vol] on 2023 Basophils (Bld) [#/Vol] 0.0 10 3/uL 0.0-0.1 [facility] Basophils/100 WBC Auto (Bld) on 2023 Basophils/100 WBC (Bld) 0.4 % 0.2-2.0 [facility] Eosinophils/100 WBC Auto (Bl d)on 2023 Eosinophils/100 WBC (Bld) 2.9 % 0.9-7.0 [facility] Erythrocyte distribution wid th Auto (RBC) [Ratio]on 2023 Erythrocyte distribution width (RBC) [Ratio] 22.1 % 11.0-15.0 [facility] Hematocrit Auto (Bld) [Volum e fraction]on 2023 Hematocrit (Bld) [Volume fraction] 43.4 % 42.0-54.0 [facility] Hemoglobin [Mass/volume] in Bloodon 2023 Hemoglobin (Bld) [Mass/Vol] 13.1 g/dL 14.0-18.0 [facility] IgA [Mass/volume] in Serum o r Plasmaon 2023 IgA [Mass/Vol] 151 mg/dL 61-437 [facility] IgG [Mass/volume] in Serum o r Plasmaon 2023 IgG [Mass/Vol] 911 mg/dL 603-1613 [facility] IgM [Mass/volume] in Serum o r Plasmaon 2023 IgM [Mass/Vol] 53 mg/dL 15-143 [facility] Iron binding capacity [Mass/ volume] in Serum or Plasmaon 2023 Iron binding capacity [Mass/Vol] 411.0 ug/dL 250.0-450.0 [facility] Iron saturation [Mass Fracti on] in Serum or Plasmaon 2023 Iron saturation [Mass fraction] 11.2 % [facility] Laboratory - Chemistry and C hemistry - challengeon 2023 Ferritin [Mass/Vol] 13.0 ng/mL 26.0-388.0 [facility] Iron [Mass/Vol] 46.0 ug/dL 65.0-175.0 [facility] Laboratory - Hematology and Cell countson 2023 Immature granulocytes/100 WBC (Bld) 0.1 % 0.0-0.5 [facility] Leukocytes [#/volume] correc augustine for nucleated erythrocytes in Blood by Automated counon 2023 WBC corrected for nucl RBC Auto (Bld) [#/Vol] 8.0 10 3/uL 4.0-11.0 [facility] Lymphocytes Auto (Bld) [#/Vo l]on 2023 Lymphocytes (Bld) [#/Vol] 2.2 10 3/uL 1.2-3.8 [facility] Lymphocytes/100 WBC Auto (Bl d)on 2023 Lymphocytes/100 WBC (Bld) 27.5 % 20.5-60.0 [facility] MCH Auto (RBC) [Entitic mass ]on 2023 MCH (RBC) [Entitic mass] 25.0 pg 25.9-34.0 [facility] MCHC Auto (RBC) [Mass/Vol]on 2023 MCHC (RBC) [Mass/Vol] 30.2 g/dL 29.9-35.2 [facility] MCV Auto (RBC) [Entitic vol] on 2023 MCV (RBC) [Entitic vol] 83.0 fL 80.0-94.0 [facility] Monocytes Auto (Bld) [#/Vol] on 2023 Monocytes (Bld) [#/Vol] 1.0 10 3/uL 0.3-0.8 [facility] Monocytes/100 WBC Auto (Bld) on 2023 Monocytes/100 WBC (Bld) 12.1 % 1.7-12.0 [facility] Neutrophils Auto (Bld) [#/Vo l]on 2023 Neutrophils (Bld) [#/Vol] 4.5 10 3/uL 1.4-6.5 [facility] Neutrophils/100 WBC Auto (Bl d)on 2023 Neutrophils/100 WBC (Bld) 57.0 % 43.0-75.0 [facility] No Panel Informationon 10-12 Eosinophils # (Auto) 0.2 10 3/uL 0.0-0.7 [facility] Immature Granulocyte # (Auto) 0.01 10 3/uL 0.00-0.03 [facility] Protein Electrophoresis M-Johnnie Not Observed g/dL Not Observed [facility] Protein Electrophoresis Note Comment . [facility] Comment on above: Protein electrophore sis scan will follow via computer,mail, or cook helper dessert delivery.Performed at: [facility] [id number] Director: Terell Silva PhD, Phone: [phone] Platelet mean volume Auto (B ld) [Entitic vol]on 2023 Platelet mean volume (Bld) [Entitic vol] 10.1 fL 9.5-13.5 [facility] Platelets Auto (Bld) [#/Vol] on 2023 Platelets (Bld) [#/Vol] 236 10 3/uL 150-450 [facility] Protein [Mass/volume] in Ser um or Plasmaon 2023 Protein [Mass/Vol] 6.8 g/dL 6.0-8.5 [facility] RBC Auto (Bld) [#/Vol]on RBC (Bld) [#/Vol] 5.23 10 6/uL 4.70-6.10 [facility] Serum globulin measurement ( mass/volume)on 2023 Globulin (S) [Mass/Vol] 2.8 g/dL 2.2-3.9 [facility] Serum or plasma albumin/glob ulin mass ratioon 2023 Albumin/Globulin [Mass ratio] 1.5 {ratio} 0.7-1.7 [facility] Serum or plasma alpha 1 glob ulin measurement by electrophoresis (mass/volume)on 2023 Alpha 1 globulin Elph [Mass/Vol] 0.3 g/dL 0.0-0.4 [facility] Serum or plasma alpha 2 glob ulin measurement by electrophoresis (mass/volume)on 2023 Alpha 2 globulin Elph [Mass/Vol] 0.7 g/dL 0.4-1.0 [facility] Serum or plasma beta globuli n measurement by electrophoresis (mass/volume)on 2023 Beta globulin Elph [Mass/Vol] 1.0 g/dL 0.7-1.3 [facility] Serum or plasma gamma globul in measurement by electrophoresis (mass/volume)on 2023 Gamma globulin Elph [Mass/Vol] 0.8 g/dL 0.4-1.8 [facility] Serum or plasma immunoelectr ophoresis interpretationon 2023 Interpretation IEP [Interp] Comment . [facility] Comment on above: No monoclonality det ected. Aspartate Amino Transferaseo n 08-29-2023 AST [Catalytic activity/Vol] 15 U/L Normal 13-39 [facility] Comment on above: Performed By: #### B MP, TSH3, AST #### [facility] [address] Aspartate aminotransferase [ Enzymatic activity/volume] in Serum or PlasmaOrdered By: Florence Aden on 08-29-2023 AST [Catalytic activity/Vol] 15 U/L 13-39 [facility] Basic Metabolic Panelon Anion gap [Moles/Vol] 10.5 mmol/L Normal 6.0-15.0 [facility] Comment on above: Performed By: #### B MP, TSH3, AST #### [facility] [address] Calcium [Mass/Vol] 8.7 mg/dL Normal 8.6-10.3 [facility] Comment on above: Performed By: #### B CONRADO TSH3, AST #### [facility] [address] [place] [address] [place] Chloride [Moles/Vol] 108 mmol/L High 98-107 [facility] Comment on above: Performed By: #### B CONRADO TSH3, AST #### [facility] [address] [place] [address] [place] CO2 [Moles/Vol] 26.9 mmol/L Normal 21.0-31.0 [facility] Comment on above: Performed By: #### B CONRADO TSH3, AST #### [facility] [address] Creatinine [Mass/Vol] 1.11 mg/dL Normal 0.70-1.30 [facility] Comment on above: Performed By: #### B CONRADO TSH3, AST #### [facility] [address] [place] [address] [place] GFR/1.73 sq M.predicted MDRD (S/P/Bld) [Vol rate/Area] mL/min/{1.73_m2} Normal [facility] Comment on above: Performed By: #### B CONRADO TSH3, AST #### [facility] [address] Glucose [Mass/Vol] 95 mg/dL Normal 70-100 [facility] Comment on above: Result Comment: [place] Glucose Reference Range is dependent on time and content of last meal. Glucose of more than 200 mg/dL in a nonstressed, ambulatory subject supports the diagnosis of Diabetes Mellitus. ADA recommended reference range Performed By: #### B CONRADO TSH3, AST #### [facility] [address] [place] [address] [place] Potassium [Moles/Vol] 4.4 mmol/L Normal 3.5-5.1 [facility] Comment on above: Performed By: #### B CONRADO, TSH3, AST #### [facility] [address] [place] [address] [place] Sodium [Moles/Vol] 141 mmol/L Normal 136-145 [facility] Comment on above: Performed By: #### B MP, TSH3, AST #### [facility] [address] [place] [address] [place] Urea nitrogen [Mass/Vol] 22 mg/dL Normal 7-25 [facility] Comment on above: Performed By: #### B MP, TSH3, AST #### [facility] [address] [place] [id number] [facility] Calcium [Mass/volume] in Ser um or PlasmaOrdered By: Florence Aden on 08-29-2023 Calcium [Mass/Vol] 8.7 mg/dL 8.6-10.3 [facility] Carbon dioxide, total [Moles /volume] in Serum or PlasmaOrdered By: Florence Aden on 08-29-2023 CO2 [Moles/Vol] 26.9 mmol/L 21.0-31.0 [facility] Chloride [Moles/volume] in S ky or PlasmaOrdered By: Florence Aden on 08-29-2023 Chloride [Moles/Vol] 108 mmol/L 98-107 [facility] Creatinine [Mass/volume] in Serum or PlasmaOrdered By: Florence Aden on 08-29-2023 Creatinine [Mass/Vol] 1.11 mg/dL 0.70-1.30 [facility] Glucose [Mass/volume] in Ser um or PlasmaOrdered By: Florence Aden on 08-29-2023 Glucose [Mass/Vol] 95 mg/dL 70-100 [facility] Comment on above: ADA recommended refe rence rangeRandom Glucose Reference Range is dependent on time and content of last meal. Glucose of more than 200 mg/dL in a nonstressed, ambulatory subject supports the diagnosis of Diabetes Mellitus. No Panel InformationOrdered By: Florence Aden on 08-29-2023 Estimated GFR (CKD-EPI) > 60.0 mL/Min [facility] Creatinine Clearance (Chem N/A [facility] Potassium [Moles/volume] in Serum or PlasmaOrdered By: Florence Aden on 08-29-2023 Potassium [Moles/Vol] 4.4 mmol/L 3.5-5.1 [facility] Serum or plasma anion gap de terminationOrdered By: Florence Aden on 08-29-2023 Anion gap [Moles/Vol] 10.5 mmol/L 6.0-15.0 [facility] Sodium [Moles/volume] in Ser um or PlasmaOrdered By: Florence Aden on 08-29-2023 Sodium [Moles/Vol] 141 mmol/L 136-145 [facility] Thyroid Stimulating Hormoneo n 08-29-2023 TSH Qn 2.16 m[IU]/L Normal 0.45-5.33 [facility] Comment on above: Result Comment: PERF ORMED BY: [place] [address] PATHOLOGIST [employer] GABINO ARCOS M.D. Performed By: #### B MP, TSH3, AST #### [address] Thyrotropin [Units/volume] i n Serum or PlasmaOrdered By: Florence Aden on 08-29-2023 TSH Qn 2.16 m[IU]/L 0.45-5.33 [facility] Urea nitrogen [Mass/volume] in Serum or PlasmaOrdered By: Florence Aden on 08-29-2023 Urea nitrogen [Mass/Vol] 22 mg/dL 01-18 [facility] XR chest 2V*on 08-29-2023 XR chest 2V* [facility] [place] [address] XRay Report Signed Patient: Valentín Buckner MR#: [id number] : 1940 Acct:[id number] Age/Sex: 82 / M ADM Date: 08/29/23 Loc: RT Room: Type: [facility] Attending Dr: Alfred Baron DO Copies to: [...] Erica Landry M.D.08/29/2023 3:43 PM Dictation Location: [place] [address] Transcribed By: LUCRECIA 08/29/23 1543 Dictated By: Erica Landry MD 08/29/23 1539 Signed By: 08/29/23 154 Normal [facility] ECG 12 Leadon 07-25-2023 Sinus bradycardia, first-degree AV block [facility] Work Phone: [facility] Work Phone: [facility] 04-21-2023 L -- ---- Specimen: [id number] Received: 04/21/23 Status: ANSHUL Siddiqimaranda Num: [id number] Spec Type: Surgical Subm Dr: Markell Garza MD Tissues: A Duodenum - Biopsy (DUODENUM BX) B STOMACH FOR HP (ANTRAL HP) C Duodenum - Biopsy (DESCENDING DUODENUM) D Esophagus Biopsy (ESOPHAGEAL BX) Procedures: HE/8, Gross/Micro L4/4, H PYLORI, IHC First AB ---- Age/ Patient Sex Location Account Attending Physician ---- Valentín Buckner /[facility] [id number] Markell Garza MD ---- SPEC NUM: [id number] RECD: 04/21/23 STATUS: ANSHUL ZARATE NUM: [id number] MODESTA: 04/21/23 DR: Markell Garza MD ENTERED: 04/21/[address] [facility] DR: LEONCIO TYPE: Surgical DEPT: S ORDERED: [...] mild squamous acanthosis and only occasional lymphocytic ---- Specimen: [id number] Received: 04/21/23 Status: ANSHUL Zarate Num: [id number] Spec Type: Surgical Subm Dr: Markell Garza MD Tissues: A Duodenum - Biopsy (DUODENUM BX) B STOMACH FOR HP (ANTRAL HP) C Duodenum - Biopsy (DESCENDING DUODENUM) D Esophagus Biopsy (ESOPHAGEAL BX) Procedures: MARCELA/[place], Gross/Micro L4/4, H PYLORI, IHC First AB ---- Patient: Valentín Buckner [id number] (Continued) ---- Specimen: [id number] Received: 04/21/23 (Continued) Pathological Diagnosis (Continued) Signed (signature on file) Martha Sevilla MD 04/29/23 0933 ---- Specimen: [id number] Received: 04/21/23 Status: ANSHUL Zarate Num: [id number] Spec Type: Surgical Subm Dr: Markell Garza MD Tissues: A Duodenum - Biopsy (DUODENUM BX) B STOMACH FOR HP (ANTRAL HP) C Duodenum - Biopsy (DESCENDING DUODENUM) D Esophagus Biopsy (ESOPHAGEAL BX) Procedures: HE/8, Gross/Micro L4/4, H PYLORI, IHC First AB ---- Patient: Valentín Buckner [id number] (Continued) ---- Specimen: [id number] Received: 04/21/23 (Continued) Pathological Diagnosis (Continued) exocytosis [...] bio (more content not included)... Normal [facility] Office Visit (Cardiology)on 03-23-2023 Follow-up [...] outside facility May 2021 NSTEMI admit at [facility] May 2021 cardiac cath: pLAD patent stent [...] in adult Healthy Weight Tips; Status:Complete; Done: [id number] Patient Instructions Please bring all medicines, vitamins, [...] - 200 MG Oral TabletTAKE 0.5 TABLET tue,Tues,Tuesday amLODIPine Besylate 2.5 MG Oral TabletTAKE 1 TABLET DAILY DIRECTED. Aspirin 81 MG Oral Tablet Delayed ReleaseTAKE 1 TABLET [id number] Atorvastatin Calcium 40 MG Oral TabletTAKE 1 [...] DAILY. as needed Vitamin D3 50 MCG (1999 [place]) Oral CapsuleTAKE 1 CAPSULE Daily Zinc 50 MG Oral TabletTAKE 1 TABLET DAILY. Patient did not bring medication list or bottles. Updated verbally with patient Allergies Medication Plavix Allergy; Rash; Recorded By: Sarah King; 07/01/2021 11:55:50 AM Social (more content not included)... Normal [facility] Aspartate Amino Transferaseo n 03-21-2023 AST [Catalytic activity/Vol] 13 U/L Normal 13-39 [facility] Comment on above: Performed By: #### T SH3, BMP, AST #### [facility] [address] [place] [address] [place] Aspartate aminotransferase [ Enzymatic activity/volume] in Serum or PlasmaOrdered By: Alfred Baron on 03-21-2023 AST [Catalytic activity/Vol] 13 U/L 13-39 [facility] Basic Metabolic Panelon 02-26 Anion gap [Moles/Vol] 7.8 mmol/L Normal 6.0-15.0 [facility] Comment on above: Performed By: #### T SH3, BMP, AST #### [facility] [address] Calcium [Mass/Vol] 8.5 mg/dL Low 8.6-10.3 [facility] Comment on above: Performed By: #### T SH3, BMP, AST #### [facility] [address] [place] [id number] [place] Chloride [Moles/Vol] 107 mmol/L Normal 98-107 [facility] Comment on above: Performed By: #### T SH3, BMP, AST #### [facility] [address] [place] [id number] [place] CO2 [Moles/Vol] 29.7 mmol/L Normal 21.0-31.0 [facility] Comment on above: Performed By: #### T SH3, BMP, AST #### [facility] [address] [place] [address] [place] Creatinine [Mass/Vol] 0.97 mg/dL Normal 0.70-1.30 [facility] Comment on above: Performed By: #### T SH3, BMP, AST #### [facility] [address] [place] [address] [place] GFR/1.73 sq M.predicted MDRD (S/P/Bld) [Vol rate/Area] mL/min/{1.73_m2} Normal [facility] Comment on above: Performed By: #### T SH3, BMP, AST #### [facility] [address] Glucose [Mass/Vol] 83 mg/dL Normal 70-100 [facility] Comment on above: Result Comment: [place] Glucose Reference Range is dependent on time and content of last meal. Glucose of more than 200 mg/dL in a nonstressed, ambulatory subject supports the diagnosis of Diabetes Mellitus. ADA recommended reference range Performed By: #### T SH3, BMP, AST #### [facility] [address] [place] [address] [place] Potassium [Moles/Vol] 4.5 mmol/L Normal 3.5-5.1 [facility] Comment on above: Performed By: #### T SH3, BMP, AST #### [facility] [address] [place] [id number] [place] Sodium [Moles/Vol] 140 mmol/L Normal 136-145 [facility] Comment on above: Performed By: #### T SH3, BMP, AST #### [facility] [address] [place] [id number] [place] Urea nitrogen [Mass/Vol] 18 mg/dL Normal 7-25 [facility] Comment on above: Performed By: #### T SH3, BMP, AST #### [facility] [address] [place] [id number] [place] Calcium [Mass/volume] in Ser um or PlasmaOrdered By: Alfred Baron on 03-21-2023 Calcium [Mass/Vol] 8.5 mg/dL 8.6-10.3 [facility] Carbon dioxide, total [Moles /volume] in Serum or PlasmaOrdered By: Alfred Baron on 03-21-2023 CO2 [Moles/Vol] 29.7 mmol/L 21.0-31.0 [facility] Chloride [Moles/volume] in S ky or PlasmaOrdered By: Alfred Baron on 03-21-2023 Chloride [Moles/Vol] 107 mmol/L 98-107 [facility] Creatinine [Mass/volume] in Serum or PlasmaOrdered By: Alfred Baron on 03-21-2023 Creatinine [Mass/Vol] 0.97 mg/dL 0.70-1.30 [facility] Glucose [Mass/volume] in Ser um or PlasmaOrdered By: Alfred Baron on 03-21-2023 Glucose [Mass/Vol] 83 mg/dL 70-100 [facility] Comment on above: ADA recommended refe rence rangeRandom Glucose Reference Range is dependent on time and content of last meal. Glucose of more than 200 mg/dL in a nonstressed, ambulatory subject supports the diagnosis of Diabetes Mellitus. No Panel InformationOrdered By: Alfred Baron on 03-21-2023 Estimated GFR (CKD-EPI) > 60.0 mL/Min [facility] Creatinine Clearance (Chem N/A [facility] No Panel Informationon 03-21 > 60.0 Normal [facility] [employer] [place] [address] DO Work Phone: 7.8\S\7.8 Normal 6.0-15.0 [facility] [employer] [address] DO Work Phone: [phone] 8.5\S\8.5 below low threshold 8.6-10.3 [facility] [employer] [address] DO Work Phone: 29.7\S\29.7 Normal 21.0-31.0 [facility] [employer] [address] DO Work Phone: 107\S\107 Normal 98-107 [facility] [employer] [place] [address] DO Work Phone: 4.5\S\4.5 Normal 3.5-5.1 [facility] Michael barrios 250 DO Work Phone: [phone] 140\S\140 Normal 136-145 [facility] Michael barrios 250 DO Work Phone: [phone] 0.97\S\0.97 Normal 0.70-1.30 [facility] Michael [address]rios 250 DO Work Phone: [phone] 18\S\18 Normal 7-25 [facility] Michael barrios 250 DO Work Phone: [phone] 83\S\83 Normal 70-100 [facility] Michael barrios 250 DO Work Phone: [phone] Comment on above: Random Glucose Refer ence Range is dependent on time and content of last meal. Glucose of more than 200 mg/dL in a nonstressed, ambulatory subject supports the diagnosis of Diabetes Mellitus. ADA recommended reference range 13\S\13 Normal 13-39 [facility] Michael barrios 250 DO Work Phone: [phone] 1.36\S\1.36 Normal 0.45-5.33 [facility] Michael barrios 250 DO Work Phone: [phone] Comment on above: PERFORMED BY:[place] [address] [address] [place], [place] [id number] MEDICAL DIRECTORGABINO ARCOS M.D. Potassium [Moles/volume] in Serum or PlasmaOrdered By: Alfred Baron on 03-21-2023 Potassium [Moles/Vol] 4.5 mmol/L 3.5-5.1 [facility] Radiologyon 03-21-2023 XR Chest 2 Views Normal [facility] Michael [address]rios 250 DO Work Phone: [phone] Serum or plasma anion gap de terminationOrdered By: Alfred Baron on 03-21-2023 Anion gap [Moles/Vol] 7.8 mmol/L 6.0-15.0 [facility] Sodium [Moles/volume] in Ser um or PlasmaOrdered By: Alfred Baron on 03-21-2023 Sodium [Moles/Vol] 140 mmol/L 136-145 [facility] Thyroid Stimulating Hormoneo n 03-21-2023 TSH Qn 1.36 m[IU]/L Normal 0.45-5.33 [facility] Comment on above: Result Comment: PERF ORMED BY: [place] [address] PATHOLOGIST [employer] GABINO ARCOS M.D. Performed By: #### T SH3, BMP, AST #### [address] Thyrotropin [Units/volume] i n Serum or PlasmaOrdered By: Alfred Baron on 03-21-2023 TSH Qn 1.36 m[IU]/L 0.45-5.33 [facility] Urea nitrogen [Mass/volume] in Serum or PlasmaOrdered By: Alfred Baron on 03-21-2023 Urea nitrogen [Mass/Vol] 18 mg/dL 01-18 [facility] XR chest 2V*on 03-21-2023 XR chest 2V* [facility] [place] [address] [place] [address] XRay Report Signed Patient: Valentín Buckner MR#: [id number] : 1940 Acct:[id number] Age/Sex: 82 / M ADM Date: 03/21/23 Loc: RT Room: Type: [facility] Attending Dr: Alfred Baron DO Copies to: [...] Nixon Jr., D.OPam03/21/2023 3:22 PM Dictation Location: [place] [address] Transcribed By: [facility] 03/21/23 1522 Dictated By: Alex Nixon Jr DO 03/21/23 1521 Signed By: 03/21/23 1522 Normal [facility] Office Visit (Cardiology)on 01-03-2023 Follow-up visit Diagnoses/Problems Assessed Bradycardia (427.89) (R00.1) August 2021 Holter average HR 64 on no AVN agents Likely element of SSS (although PAF rates > 100) November 2022 [facility] nocturnal bradycardia, no high-grade heart block. Paroxysmal [...] outside facility May 2021 NSTEMI admit at [facility] May 2021 cardiac cath: pLAD patent stent [...] in adult Healthy Weight Tips; Status:Complete; Done: [id number] Patient Instructions Please bring all medicines, vitamins, [...] bradycardia and he completed a 14-day Compa [employer]. Results reviewed including no evidence of high-grade [...] - 200 (more content not included)... Normal [facility]aman Tobacco Screening.on 023 Fall risk assessment a) No falls within the last year [facility] [place] [address] DO Work Phone: Tobacco use status CPHS b) No M -[facility] [address] DO Work Phone: Cardiovasc Arrhythmia Result son 12-08-2022 Cardiovasc Arrhythmia Results Reason For Visit Event Monitor: VALENTÍN is here for the application of a 30 day event monitor in office., Diagnosis: bradycardia, afib Ordering Physician: Florence Mora NP Enrollment sent to: [employer] Monitor number [id number] applied. Holter monitor printed and placed on [...] Paroxysmal atrial fibrillation (427.31) (I48.0) Future Appointments Date/TimeProvider[facility] 01/03/2023 11:00 Florence Sales APRN-XNCGenzpcihnu[address] [place] 250 DO 07/20/2023 10:00 Brendon Hennessy DOCardiology[address] [place] 250 DO Signatures Electronically signed by : Rose Green MD; Dec 28 2022 10:28PM EST (Author) Normal Jaman Office Visit (Cardiology)on 11-29-2022 Follow-up visit Diagnoses/Problems [...] concerning symptoms May 2021 NSTEMI admit at [facility] Intolerant to plavix and eliquis Daily activity [...] 100 mg daily. October 2022 presented to [facility] due to dizziness. Seen in consultation by [...] day of admit [place], when he raised up he felt [...] We will proceed with 14-day Compa [employer]. At this time amiodarone has been reduced [...] surgery History (more content not included)... Normal [employer] Tobacco Screening.on 023 Adult depression screening assessment No [facility] [employer] [place] 250 DO Work Phone: Fall risk assessment a) No falls within the last year [facility] [employer] 250 DO Work Phone: Tobacco use status CPHS b) No M [facility] [employer] 250 DO Work Phone: Alanine aminotransferase [En zymatic activity/volume] in Serum or PlasmaOrdered By: Carlos Corbett on 10-28-2022 ALT [Catalytic activity/Vol] 16 U/L 7-52 [facility] Albumin [Mass/volume] in Ser um or Plasma by Bromocresol green (BCG) dye binding methoOrdered By: Carlos Corbett on 10-28-2022 Albumin BCG dye [Mass/Vol] 4.0 g/dL 3.5-5.7 [facility] Alkaline phosphatase [Enzyma tic activity/volume] in Serum or PlasmaOrdered By: Carlos Corbett on 10-28-2022 ALP [Catalytic activity/Vol] 66 U/L 34-104 [facility] Aspartate aminotransferase [ Enzymatic activity/volume] in Serum or PlasmaOrdered By: Carlos Corbett on 10-28-2022 AST [Catalytic activity/Vol] 17 U/L 13-39 [facility] Basophils Auto (Bld) [#/Vol] Ordered By: Carlos Corbett on 10-28-2022 Basophils (Bld) [#/Vol] 0.0 10*3/uL 0.0-0.2 [facility] Basophils/100 WBC Auto (Bld) Ordered By: Carlos Corbett on 10-28-2022 Basophils/100 WBC (Bld) 0.4 % . F [facility] Bilirubin.total [Mass/volume ] in Serum or PlasmaOrdered By: Carlos Corbett on 10-28-2022 Bilirubin [Mass/Vol] 0.3 mg/dL 0.3-1.0 [facility] Calcium [Mass/volume] in Ser um or PlasmaOrdered By: Carlos Corbett on 10-28-2022 Calcium [Mass/Vol] 8.4 mg/dL 8.6-10.3 [facility] Carbon dioxide, total [Moles /volume] in Serum or PlasmaOrdered By: Carlos Corbett on 10-28-2022 CO2 [Moles/Vol] 26.2 mmol/L 21.0-31.0 [facility] Chloride [Moles/volume] in S ky or PlasmaOrdered By: Carlos Corbett on 10-28-2022 Chloride [Moles/Vol] 106 mmol/L 98-107 [facility] Creatine kinase [Enzymatic a ctivity/volume] in Serum or PlasmaOrdered By: Carlos Corbett on 10-28-2022 CK [Catalytic activity/Vol] 84 U/L 30-223 [facility] Creatinine [Mass/volume] in Serum or PlasmaOrdered By: Carlos Corbett on 10-28-2022 Creatinine [Mass/Vol] 1.20 mg/dL 0.70-1.30 [facility] Eosinophils Auto (Bld) [#/Vo l]Ordered By: Carlos Corbett on 10-28-2022 Eosinophils (Bld) [#/Vol] 0.1 10*3/uL 0.0-0.45 [facility] Eosinophils/100 WBC Auto (Bl d)Ordered By: Carlos Corbett on 10-28-2022 Eosinophils/100 WBC (Bld) 0.9 % . [facility] Erythrocyte distribution wid th Auto (RBC) [Ratio]Ordered By: Carlos Corbett on 10-28-2022 Erythrocyte distribution width (RBC) [Ratio] 19.8 % 12.0-14.8 [facility] Globulin Calc (S) [Mass/Vol] Ordered By: Carlos Corbett on 10-28-2022 Globulin (S) [Mass/Vol] 2.5 g/dL F [facility] Glucose [Mass/volume] in Ser um or PlasmaOrdered By: Carlos Corbett on 10-28-2022 Glucose [Mass/Vol] 103 mg/dL 70-100 [facility] Comment on above: ADA recommended refe rence rangeRandom Glucose Reference Range is dependent on time and content of last meal. Glucose of more than 200 mg/dL in a nonstressed, ambulatory subject supports the diagnosis of Diabetes Mellitus. Hematocrit Auto (Bld) [Volum e fraction]Ordered By: Carlos Corbett on 10-28-2022 Hematocrit (Bld) [Volume fraction] 40.4 % 38.8-50.0 [facility] Hemoglobin [Mass/volume] in BloodOrdered By: Carlos Corbett on 10-28-2022 Hemoglobin (Bld) [Mass/Vol] 12.9 g/dL 13.0-17.0 [facility] Leukocytes [#/volume] correc augustine for nucleated erythrocytes in Blood by Automated counOrdered By: Carlos Corbett on 10-28-2022 WBC corrected for nucl RBC Auto (Bld) [#/Vol] 8.9 10*3/uL 4.1-10.5 [facility] Lymphocytes Auto (Bld) [#/Vo l]Ordered By: Carlos Corbett on 10-28-2022 Lymphocytes (Bld) [#/Vol] 2.2 10*3/uL 1.00-4.8 [facility] Lymphocytes/100 WBC Auto (Bl d)Ordered By: Carlos Corbett on 10-28-2022 Lymphocytes/100 WBC (Bld) 24.4 % . [facility] MCH Auto (RBC) [Entitic mass ]Ordered By: Carlos Corbett on 10-28-2022 MCH (RBC) [Entitic mass] 25.3 pg 27.5-35.2 [facility] MCHC Auto (RBC) [Mass/Vol]Or dered By: Carlos Corbett on 10-28-2022 MCHC (RBC) [Mass/Vol] 31.8 g/dL 32.5-35.6 [facility] MCV Auto (RBC) [Entitic vol] Ordered By: Carlos Corbett on 10-28-2022 MCV (RBC) [Entitic vol] 79.6 fL 83.5-101 F [facility] Magnesium [Mass/volume] in S ky or PlasmaOrdered By: Trena Pena on 10-28-2022 Magnesium [Mass/Vol] 1.9 mg/dL 1.9-2.7 [facility] Monocyte distribution width [Entitic volume] in Blood by AutomatedOrdered By: Carlos Corbett on 10-28-2022 Monocyte distribution width Auto (Bld) [Entitic vol] 16.55 % 0.00-20.00 [facility] Monocytes Auto (Bld) [#/Vol] Ordered By: Carlos Corbett on 10-28-2022 Monocytes (Bld) [#/Vol] 1.0 10*3/uL 0.0-0.8 [facility] Monocytes/100 WBC Auto (Bld) Ordered By: Carlos Corbett on 10-28-2022 Monocytes/100 WBC (Bld) 11.8 % . [facility] Natriuretic peptide B [Mass/ Vol]Ordered By: Carlos Corbett on 10-28-2022 Natriuretic peptide B (Bld) [Mass/Vol] 148.0 pg/mL 5-100 [facility] Neutrophils Auto (Bld) [#/Vo l]Ordered By: Carlos Corbett on 10-28-2022 Neutrophils (Bld) [#/Vol] 5.6 10*3/uL 1.8-7.7 [facility] Neutrophils/100 WBC Auto (Bl d)Ordered By: Carlos Corbett on 10-28-2022 Neutrophils/100 WBC (Bld) 62.5 % . [facility] No Panel InformationOrdered By: Carlos Corbett on 10-28-2022 Estimated GFR (CKD-EPI) > 60.0 mL/Min [facility] Creatinine Clearance (Chem 53.74 [facility] Nucleated erythrocytes [Pres ence] in Blood by Automated countOrdered By: Carlos Corbett on 10-28-2022 Nucleated RBC Auto Ql (Bld) 0.0 /100{WBC} 0-0.5 [facility] Platelet mean volume Auto (B ld) [Entitic vol]Ordered By: Carlos Corbett on 10-28-2022 Platelet mean volume (Bld) [Entitic vol] 7.8 fL 6.6-10.1 [facility] Platelets Auto (Bld) [#/Vol] Ordered By: Carlos Corbett on 10-28-2022 Platelets (Bld) [#/Vol] 215 10*3/uL 150-450 [facility] Potassium [Moles/volume] in Serum or PlasmaOrdered By: Carlos Corbett on 10-28-2022 Potassium [Moles/Vol] 4.2 mmol/L 3.5-5.1 [facility] Protein [Mass/volume] in Ser um or PlasmaOrdered By: Carlos Corbett on 10-28-2022 Protein [Mass/Vol] 6.5 g/dL 6.4-8.9 [facility] RBC Auto (Bld) [#/Vol]Ordere d By: Carlos Corbett on 10-28-2022 RBC (Bld) [#/Vol] 5.08 10*6/uL 3.90-5.60 [facility] Serum or plasma albumin/glob ulin mass ratioOrdered By: Carlos Corbett on 10-28-2022 Albumin/Globulin [Mass ratio] 1.6 {ratio} [facility] Serum or plasma anion gap de terminationOrdered By: Carlos Corbett on 10-28-2022 Anion gap [Moles/Vol] 11.0 mmol/L 6.0-15.0 [facility] Sodium [Moles/volume] in Ser um or PlasmaOrdered By: Carlos Corbett on 10-28-2022 Sodium [Moles/Vol] 139 mmol/L 136-145 [facility] Thyrotropin [Units/volume] i n Serum or PlasmaOrdered By: Karol Sage on 10-28-2022 TSH Qn 2.15 m[IU]/L 0.45-5.33 [facility] Troponin I.cardiac [Mass/vol ume] in Serum or Plasma by Detection limit <= 0.01 ng/Ordered By: Carlos Corbett on 10-28-2022 Troponin I.cardiac DL <= 0.01 ng/mL [Mass/Vol] 7.4 pg/mL 0.0-20.0 [facility] Urea nitrogen [Mass/volume] in Serum or PlasmaOrdered By: Carlos Corbett on 10-28-2022 Urea nitrogen [Mass/Vol] 23 mg/dL 7-25 [facility] WBC Auto (Bld) [#/Vol]Ordere d By: Carlos Corbett on 10-28-2022 WBC (Bld) [#/Vol] 8.9 10*3/uL 4.1-10.5 [facility] CBC AUTO DIFFon 10-20-2022 BASO # 0.0 103/ul Normal 0.0-0.1 [facility] Comment on above: Performed By: #### C VDTBH #### [facility] [address] [place] [address] Dr. Steve Sevilla Basophils/100 WBC (Bld) 0.4 % Normal 0.2-2.0 [facility] Comment on above: Performed By: #### C VDTBH #### [facility] [address] [place] [address] Dr. Steve Sevilla EO # 0.1 103/ul Normal 0.0-0.7 [facility] Comment on above: Performed By: #### C VDTBH #### [facility] [address] [place] [address] Dr. Steve Sevilla Eosinophils/100 WBC (Bld) 1.1 % Normal 0.9-7.0 [facility] Comment on above: Performed By: #### C VDTBH #### [facility] [address] [place] [address] Dr. Steve Sevilla Erythrocyte distribution width (RBC) [Ratio] 18.6 % Critically high 11.0-15.0 [facility] Comment on above: Performed By: #### C VDTBH #### [facility] [address] [place] [address] Dr. Steve Sevilla Hematocrit (Bld) [Volume fraction] 42.9 % Normal 42.0-54.0 [facility] Comment on above: Performed By: #### C VDTBH #### [facility] [address] [place] [address] Dr. Steve Sevilla Hemoglobin (Bld) [Mass/Vol] 13.0 g/dL Critically low 14.0-18.0 [facility] Comment on above: Performed By: #### C VDTBH #### [facility] [address] [place] [address] Dr. Steve Sevilla IG # 0.03 10e3/ul Normal 0.00-0.03 [facility] Comment on above: Performed By: #### C VDTBH #### [facility] [address] [place] [address] Dr. Steve Sevilla IG % 0.3 % Normal 0.0-0.5 [facility] Comment on above: Performed By: #### C VDTBH #### [facility] [address] [place] [address] [address] Steve Sevilla LYMPH # 2.6 103/ul Normal 1.2-3.8 [facility] Comment on above: Performed By: #### C VDTBH #### [facility] [address] [place] [address] Dr. Steve Sevilla Lymphocytes/100 WBC (Bld) 23.1 % Normal 20.5-60.0 [facility] Comment on above: Performed By: #### C VDTBH #### [facility] [address] [place] [address] Dr. Steve Sevilla MANUAL DIFF REQ NO Normal [facility] Comment on above: Performed By: #### C VDTBH #### [facility] [address] [place] [address] Dr. Steve Sevilla MCH (RBC) [Entitic mass] 25.0 pg Critically low 25.9-34 .0 [facility] Comment on above: Performed By: #### C VDTBH #### [facility] [address] [place] [address] Dr. Steve Sevilla MCHC (RBC) [Mass/Vol] 30.3 g/dL Normal 29.9-35.2 [facility] Comment on above: Performed By: #### C VDTBH #### [facility] [address] [place] [address] Dr. Steve Sevilla MCV (RBC) [Entitic vol] 82.7 fL Normal 80.0-94.0 [facility] Comment on above: Performed By: #### C VDTBH #### [facility] [address] [place] [address] Dr. Steve Sevilla MONO # 1.2 103/ul Critically high 0.3-0.8 [facility] Comment on above: Performed By: #### C VDTBH #### [facility] [address] [place] [address] Dr. Steve Sevilla Monocytes/100 WBC (Bld) 10.6 % Normal 1.7-12.0 [facility] Comment on above: Performed By: #### C VDTBH #### [facility] [address] [place] [address] Dr. Steve Sevilla NEUT # 7.2 103/ul Critically high 1.4-6.5 [facility] Comment on above: Performed By: #### C VDTBH #### [facility] [address] [place] [address] Dr. Steve Sevilla Neutrophils/100 WBC (Bld) 64.5 % Normal 43.0-75.0 [facility] Comment on above: Performed By: #### C VDTBH #### [facility] [address] [place] [address] Dr. Steve Sevilla Platelet mean volume (Bld) [Entitic vol] 8.9 fL Critically low 9.5-13.5 [facility] Comment on above: Performed By: #### C VDTBH #### [facility] [address] [place] [address] Dr. Steve Sevilla PLT 248 103/ul Normal 150-450 [facility] Comment on above: Performed By: #### C VDTBH #### [facility] [address] [place] [address] Dr. Steve Sevilla RBC 5.19 106/ul Normal 4.70-6.10 [facility] Comment on above: Performed By: #### C VDTBH #### [facility] [address] [place] [address] Dr. Steve Sevilla WBC 11.2 103/ul Critically high 4.0-11.0 [facility] Comment on above: Performed By: #### C VDTBH #### [facility] [address] [place] [address] Dr. Steve Sevilla FERRITINon 10-20-2022 Ferritin [Mass/Vol] 12.0 ng/mL Critically low 26.0-388.0 [facility] Comment on above: Performed By: #### F ETIBC, FERR #### [facility] [address] [place] [address] Dr. Steve Sevilla IRON AND TIBCon 10-20-2022 % SATURATION 12.1 % Normal [facility] Comment on above: Performed By: #### F ETIBC, FERR #### [facility] [address] [address] [address] Steve Sevilla Iron [Mass/Vol] 47.0 ug/dL Critically low 65.0-175.0 [facility] Comment on above: Performed By: #### F ETIBC, FERR #### [facility] [address] [address] [address] Steve Sevilla TIBC DIRECT 387.0 ug/dL Normal 250.0-450.0 [facility] Comment on above: Performed By: #### F ETIBC, FERR #### [facility] [address] [address] [address] Steve Sevilla Aspartate aminotransferase [ Enzymatic activity/volume] in Serum or PlasmaOrdered By: Alfred Baron on 10-15-2022 AST [Catalytic activity/Vol] 23 U/L 13-39 [facility] Calcium [Mass/volume] in Ser um or PlasmaOrdered By: Alfred Baron on 10-15-2022 Calcium [Mass/Vol] 8.4 mg/dL 8.6-10.3 [facility] Carbon dioxide, total [Moles /volume] in Serum or PlasmaOrdered By: Alfred Baron on 10-15-2022 CO2 [Moles/Vol] 28.2 mmol/L 21.0-31.0 [facility] Chloride [Moles/volume] in S ky or PlasmaOrdered By: Alfred Baron on 10-15-2022 Chloride [Moles/Vol] 106 mmol/L 98-107 [facility] Creatinine [Mass/volume] in Serum or PlasmaOrdered By: Alfred Baron on 10-15-2022 Creatinine [Mass/Vol] 1.13 mg/dL 0.70-1.30 [facility] Glucose [Mass/volume] in Ser um or PlasmaOrdered By: Alfred Baron on 10-15-2022 Glucose [Mass/Vol] 88 mg/dL 70-100 [facility] Comment on above: ADA recommended refe rence rangeRandom Glucose Reference Range is dependent on time and content of last meal. Glucose of more than 200 mg/dL in a nonstressed, ambulatory subject supports the diagnosis of Diabetes Mellitus. No Panel InformationOrdered By: Alfred Baron on 10-15-2022 Estimated GFR (CKD-EPI) > 60.0 mL/Min [facility] Creatinine Clearance (Chem N/A [facility] No Panel Informationon 10-15 > 60.0 Normal [facility] [employer] denis 250 DO Work Phone: 10.4\S\10.4 Normal 6.0-15.0 [facility] [employer] denis 250 DO Work Phone: [phone] 8.4\S\8.4 below low threshold 8.6-10.3 [facility] [employer]Carmen barrios 250 DO Work Phone: 28.2\S\28.2 Normal 21.0-31.0 [facility] [employer]Carmen barrios 250 DO Work Phone: [phone] 106\S\106 Normal 98-107 [facility] [employer]Carmen barrios 250 DO Work Phone: [phone] 4.6\S\4.6 Normal 3.5-5.1 [facility] [employer]Carmen barrios 250 DO Work Phone: [phone] 140\S\140 Normal 136-145 [facility] [employer] denis 250 DO Work Phone: [phone] 1.13\S\1.13 Normal 0.70-1.30 [facility] [employer]Carmen barrios 250 DO Work Phone: [phone] 19\S\19 Normal 7-25 [facility] [employer] denis 250 DO Work Phone: [phone] 88\S\88 Normal 70-100 [facility] [employer] denis 250 DO Work Phone: Comment on above: Random Glucose Refer ence Range is dependent on time and content of last meal. Glucose of more than 200 mg/dL in a nonstressed, ambulatory subject supports the diagnosis of Diabetes Mellitus. ADA recommended reference range 23\S\23 Normal 13-39 [facility] [place] [address] DO Work Phone: 1.66\S\1.66 Normal 0.45-5.33 [facility] [place] 250 DO Work Phone: Comment on above: PERFORMED BY:[facility] [id number] MEDICAL DIRECTORGABINO ARCOS M.D. Potassium [Moles/volume] in Serum or PlasmaOrdered By: Alfred Baron on 10-15-2022 Potassium [Moles/Vol] 4.6 mmol/L 3.5-5.1 [facility] Radiologyon 10-15-2022 XR Chest 2 Views Normal [facility] [place] [facility] DO Work Phone: Serum or plasma anion gap de terminationOrdered By: Alfred Baron on 10-15-2022 Anion gap [Moles/Vol] 10.4 mmol/L 6.0-15.0 [facility] Sodium [Moles/volume] in Ser um or PlasmaOrdered By: Alfred Baron on 10-15-2022 Sodium [Moles/Vol] 140 mmol/L 136-145 [facility] Thyrotropin [Units/volume] i n Serum or PlasmaOrdered By: Alfred Baron on 10-15-2022 TSH Qn 1.66 m[IU]/L 0.45-5.33 [facility] Urea nitrogen [Mass/volume] in Serum or PlasmaOrdered By: Alfred Baron on 10-15-2022 Urea nitrogen [Mass/Vol] 19 mg/dL 7-25 [facility] Office Visit (Cardiology)on 07-15-2022 Follow-up visit Diagnoses/Problems Assessed CAD (coronary artery disease) (414.00) (I25.10) H/O non-ST elevation myocardial infarction (NSTEMI) (412) (I25.2) S/P PTCA (percutaneous transluminal coronary angioplasty) (V45.82) (Z98.61) High risk medication use (V58.69) (Z79.899) Anticoagulated (V58.61) (Z79.01) Mixed hyperlipidemia (272.2) (E78.2) Paroxysmal atrial fibrillation (427.31) (I48.0) Former smoker (V15.82) (Z87.891) quit [facility] Overweight with body mass index (BMI) of [...] cardiovascular complaints. He status post non-ST elevation DE May 2021, with a history of ASHD and prior three-vessel PCI in [place]. 1 of those events was for an inferior DE with revascularization of the RCA. Patient is notably severely allergic to Plavix and Effient. He has no history of stroke or bleeding disorder cancer peripheral vascular disease Has had mild paroxysmal atrial fibrillation, successfully treated with low-dose amiodarone, Eliquis with no bleeding or thromboembolic events recurrence of A. fib Today's ECG reveals sinus bradycardia with a NH interval 266, QT corrected interval 457, and evidence of Q waves inferior DE indeterminate age. Heart catheterization in May 2021 performed by myself revealed patent LAD and circumflex stents, first OM branch was occluded and treated conservatively. Is otherwise doing well without any angina or recurrent A. fib He is asking about coming off of Eliquis and because of his elevated [id number] score I recommended he stay on Eliquis [...] Signs Recorded: 15Jul2022 10:06AM Heart Rate50, Apical Oovejznb380, LUE, Sitting Zimfhpvtb46, LUE, Sitting Height5 ft 9 in Mkxdvc495 lb BMI Xdicdxvtaf79.94 kg/m2 BSA Calculated2.05 Tobacco Useb) No PHQ-2 #1. Over the (more content not included)... Normal [employer] Tobacco Screening.on 023 Adult depression screening assessment No [facility] [employer] denis Crandall DO Work Phone: [phone] Fall risk assessment b) One or more fall s in the last year [facility] [employer]Carmen Crandall DO Work Phone: Tobacco use status CPHS b) No M -[facility] [employer] denis Crandall DO Work Phone: Creatinine and Glomerular fi ltration rate.predicted panel (S/P/Bld)Ordered By: Alfred Baron on 07-12-2022 Creatinine [Mass/Vol] 1.02 mg/dL 0.64-1.27 [facility] Estimated glomerular filtrat ion rate (GFR) non- AmericanOrdered By: Alfred Baron on 07-12-2022 GFR/1.73 sq M.predicted among non-blacks MDRD (S/P/Bld) [Vol rate/Area] > 60 mL/Min [facility] No Panel InformationOrdered By: Alfred Baron on 07-12-2022 Estimated GFR () > 60 mL/Min [facility] Comment on above: GFR estimated refere nce range: According to KDOQI guidelines, <60 ml/min/1.73m2 is sufficient to diagnose a patient with chronic kidney disease. Pharmacy Creatinine Clearance (Chem N/A [facility] No Panel Informationon 07-12 10.7\S\10.7 Normal 6.0-15.0 [facility] [employer] denis 250 DO Work Phone: 9.0\S\9.0 Normal 8.2-10.2 [facility] [employer] denis 250 DO Work Phone: 26.7\S\26.7 Normal 22.0-30.0 [facility] [employer] denis 250 DO Work Phone: 106\S\106 Normal 95-114 [facility] [employer] denis Crandall DO Work Phone: 4.4\S\4.4 Normal 3.5-5.1 [facility] Michael barrios 250 DO Work Phone: [phone]\S\139 Normal 136-146 [facility] Michael barrios 250 DO Work Phone: [phone] > 60 Normal [facility] RosaCarmen barrios 250 DO Work Phone: [phone] Comment on above: GFR estimated refere nce range: According to KDOQI guidelines, <60 ml/min/1.73m2 is sufficient to diagnose a patient with chronic kidney disease. 1.02\S\1.02 Normal 0.64-1.27 [facility] Michael barrios 250 DO Work Phone: [phone] 18\S\18 Normal 9-23 [facility] RosaCarmen Crandall DO Work Phone: [phone] 86\S\86 Normal 70-100 [facility] denis Crandall DO Work Phone: Comment on above: Random Glucose Refer ence Range is dependent on time and content of last meal. Glucose of more than 200 mg/dL in a nonstressed, ambulatory subject supports the diagnosis of Diabetes Mellitus. ADA recommended reference range 22\S\22 Normal 10-42 [facility] Work Phone: [phone] 1.82\S\1.82 Normal 0.45-5.33 [facility] Work Phone: [phone] Comment on above: PERFORMED BY:[place] [address] [place] [place], [place] [phone] MEDICAL DIRECTORGABINO ARCOS M.D. Radiologyon 07-12-2022 XR Chest 2 Views Normal [facility] Karley DO Work Phone: Serum or plasma anion gap de terminationOrdered By: Alfred Baron on 07-12-2022 Anion gap [Moles/Vol] 10.7 mmol/L 6.0-15.0 [facility] Serum or plasma aspartate am inotransferase measurement (enzymatic activity/volume)Ordered By: Alfred Baron on 07-12-2022 AST [Catalytic activity/Vol] 22 U/L 10-42 [facility] Serum or plasma calcium sean urement (mass/volume)Ordered By: Alfred Baron on 07-12-2022 Calcium [Mass/Vol] 9.0 mg/dL 8.2-10.2 [facility] Serum or plasma chloride nicolasa surement (moles/volume)Ordered By: Alfred Baron on 07-12-2022 Chloride [Moles/Vol] 106 mmol/L 95-114 [facility] Serum or plasma glucose sean urement (mass/volume)Ordered By: Alfred Baron on 07-12-2022 Glucose [Mass/Vol] 86 mg/dL 70-100 [facility] Comment on above: ADA recommended refe rence [...] on 07-12-2022 Sodium [Moles/Vol] 139 mmol/L 136-146 [facility] Serum or plasma total carbon dioxide measurement (moles/volume)Ordered By: Alfred Baron on 07-12-2022 CO2 [Moles/Vol] 26.7 mmol/L 22.0-30.0 [facility] Serum or plasma urea nitroge n measurement (mass/volume)Ordered By: Alfred Baron on 07-12-2022 Urea nitrogen [Mass/Vol] 18 mg/dL 9-23 [facility] TSH DL <= 0.005 mIU/L QnOrde red By: Alrfed Baron on 07-12-2022 TSH Qn 1.82 m[IU]/L 0.45-5.33 [facility] Covid-19 PCR ([facility])on 05-28 SARS-CoV-2 (COVID-19) RNA LO+probe Ql (Unsp spec) Not detected Normal NOT DETECTED [facility] Comment on above: Result Comment: This test is not yet approved or cleared by the [place] FDA. When there are no FDA-approved or cleared tests available, and other criteria are met, FDA can make tests available under an emergency access mechanism called an Emergency Use Authorization (EUA). The EUA for this test is supported by the [place] of Health and Human Service's (HHS's) declaration [...] SARS-CoV-2. Performed By: #### C VDTBH #### [facility] [address] [place] [address] Dr. Steve Sevilla INFLUENZA A AND B AGon 06-15 INFLUBNEGH SEE BELOW Normal [facility] Comment on above: Result Comment: Nega tive for Flu B protein antigen. Infection due to Flu B cannot be ruled out. Flu B antigen in the sample may be below the detection limit of the test. Performed By: #### C VDTBH #### [facility] [address] [place] [address] Dr. Steve Sevilla INFLUENZA A AG Positive Abnormal NEGATIVE SEE COMMENT [facility] Comment on above: Performed By: #### C VDTBH #### [facility] [address] [place] [address] Dr. Steve Sevilla INFLUENZA B AG Negative Normal NEGATIVE SEE COMMENT [facility] Comment on above: Performed By: #### C VDTBH #### [facility] [address] [place] [address] Dr. Steve Sevilla INFLUPOSH SEE BELOW Normal [facility] Comment on above: Result Comment: NOTE : Live attenuated influenzae vaccine viruses can cause a positive result for a rapid influenza diagnostic test if administered up to 7 days prior to rapid testing. Performed By: #### C VDTBH #### [facility] [address] [place] [address] Dr. Steve Sevilla INTERNAL CONTROLS Within Normal Limits Normal Wi thin Normal Limits [facility] Comment on above: Performed By: #### C VDTBH #### [facility] [address] [place] [address] Dr. Steve Sevilla CBC AUTO DIFFon 04-20-2022 BASO # 0.0 103/ul Normal 0.0-0.1 [facility] Comment on above: Performed By: #### C BC #### [facility] [address] [place] [address] Dr. Steve Sevilla Basophils/100 WBC (Bld) 0.4 % Normal 0.2-2.0 [facility] Comment on above: Performed By: #### C BC #### [facility] [address] [place] [address] Dr. Steve Sevilla EO # 0.1 103/ul Normal 0.0-0.7 [facility] Comment on above: Performed By: #### C BC #### [facility] [address] [place] [address] Dr. Steve Sevilla Eosinophils/100 WBC (Bld) 1.5 % Normal 0.9-7.0 [facility] Comment on above: Performed By: #### C BC #### [facility] [address] [place] [address] Dr. Steve Sevilla Erythrocyte distribution width (RBC) [Ratio] 16.5 % Critically high 11.0-15.0 [facility] Comment on above: Performed By: #### C BC #### [facility] [address] [place] [address] Dr. Steve Sevilla Hematocrit (Bld) [Volume fraction] 43.1 % Normal 42.0-54.0 [facility] Comment on above: Performed By: #### C BC #### [facility] [address] [place] [address] Dr. Steve Sevilla Hemoglobin (Bld) [Mass/Vol] 13.3 g/dL Critically low 14.0-18.0 [facility] Comment on above: Performed By: #### C BC #### [facility] [address] [place] [address] Dr. Steve Sevilla IG # 0.02 10e3/ul Normal 0.00-0.03 [facility] Comment on above: Performed By: #### C BC #### [facility] [address] [place] [address] Dr. Steve Sevilla IG % 0.2 % Normal 0.0-0.5 [facility] Comment on above: Performed By: #### C BC #### [facility] [address] [place] [address] Dr. Steve Sevilla LYMPH # 2.6 103/ul Normal 1.2-3.8 [facility] Comment on above: Performed By: #### C BC #### [facility] [address] [place] [address] Dr. Steve Sevilla Lymphocytes/100 WBC (Bld) 27.8 % Normal 20.5-60.0 [facility] Comment on above: Performed By: #### C BC #### [facility] [address] [place] [address] Dr. Steve Sevilla MANUAL DIFF REQ NO Normal [facility] Comment on above: Performed By: #### C BC #### [facility] [address] [place] [address] Dr. Steve Sevilla MCH (RBC) [Entitic mass] 27.3 pg Normal 25.9-34.0 [facility] Comment on above: Performed By: #### C BC #### [facility] [address] [place] [address] Dr. Steve Sevilla MCHC (RBC) [Mass/Vol] 30.9 g/dL Normal 29.9-35.2 [facility] Comment on above: Performed By: #### C BC #### [facility] [address] [place] [address] Dr. Steve Sevilla MCV (RBC) [Entitic vol] 88.3 fL Normal 80.0-94.0 [facility] Comment on above: Performed By: #### C BC #### [facility] [address] [address] [address] Steve Sevilla MONO # 1.5 103/ul Critically high 0.3-0.8 [facility] Comment on above: Performed By: #### C BC #### [facility] [address] [address] [address] Steve Sevilla Monocytes/100 WBC (Bld) 15.8 % Critically high 1.7-12. 0 [facility] Comment on above: Performed By: #### C BC #### [facility] [address] [address] [address] Steve Sevilla NEUT # 5.0 103/ul Normal 1.4-6.5 [facility] Comment on above: Performed By: #### C BC #### [facility] [address] [place] [address] Dr. Steve Sevilla Neutrophils/100 WBC (Bld) 54.3 % Normal 43.0-75.0 [facility] Comment on above: Performed By: #### C BC #### [facility] [address] [place] [address] Dr. Steve Sevilla Platelet mean volume (Bld) [Entitic vol] 9.2 fL Critically low 9.5-13.5 [facility] Comment on above: Performed By: #### C BC #### [facility] [address] [place] [address] Dr. Steve Sevilla PLT 239 103/ul Normal 150-450 [facility] Comment on above: Performed By: #### C BC #### [facility] [address] [place] [address] Dr. Steve Sevilla RBC 4.88 106/ul Normal 4.70-6.10 [facility] Comment on above: Performed By: #### C BC #### [facility] [address] [address] [address] Steve Sevilla WBC 9.3 103/ul Normal 4.0-11.0 [facility] Comment on above: Performed By: #### C BC #### [facility] [address] [place] [address] [address] [address] Steve Sevilla [facility]on [facility]27 SARS-CoV-2 (COVID-19) RNA LO+probe Ql (Unsp spec) Not detected Normal NOT DETECTED [facility] Comment on above: Result Comment: This test is not yet approved or cleared by the [place] FDA. When there are no FDA-approved or cleared tests available, and other criteria are met, FDA can make tests available under an emergency access mechanism called an Emergency Use Authorization (EUA). The EUA for this test is supported by the [place] of Health and Human Service's (HHS's) declaration [...] consistent with SARS-CoV-2. Performed By: #### [facility] #### [facility] [address] [place], [place] [id number] Dr. Steve Sevilla Creatinine and Glomerular fi ltration rate.predicted panel (S/P/Bld)Ordered By: Alfred Baron on 03-24-2022 Creatinine [Mass/Vol] 1.17 mg/dL 0.64-1.27 [facility] Estimated glomerular filtrat ion rate (GFR) non- AmericanOrdered By: Alfred Baron on 03-24-2022 GFR/1.73 sq M.predicted among non-blacks MDRD (S/P/Bld) [Vol rate/Area] 60 mL/Min [facility] No Panel InformationOrdered By: Alfred Baron on 03-24-2022 Estimated GFR () > 60 mL/Min [facility] Comment on above: GFR estimated refere nce range: According to KDOQI guidelines, <60 ml/min/1.73m2 is sufficient to diagnose a patient with chronic kidney disease. Pharmacy Creatinine Clearance (Chem N/A [facility] Serum or plasma anion gap de terminationOrdered By: Alfred Baron on 03-24-2022 Anion gap [Moles/Vol] 13.5 mmol/L 6.0-15.0 [facility] Serum or plasma aspartate am inotransferase measurement (enzymatic activity/volume)Ordered By: Alfred Baron on 03-24-2022 AST [Catalytic activity/Vol] 19 U/L 10-42 [facility] Serum or plasma calcium sean urement (mass/volume)Ordered By: Alfred Baron on 03-24-2022 Calcium [Mass/Vol] 8.7 mg/dL 8.2-10.2 [facility] Serum or plasma chloride nicolasa surement (moles/volume)Ordered By: Alfred Baron on 03-24-2022 Chloride [Moles/Vol] 100 mmol/L 95-114 [facility] Serum or plasma glucose sean urement (mass/volume)Ordered By: Alfred Baron on 03-24-2022 Glucose [Mass/Vol] 147 mg/dL 70-100 [facility] Comment on above: ADA recommended refe rence [...] measu rement (moles/volume)Ordered By: Alfred Baron on 03-24-2022 Sodium [Moles/Vol] 138 mmol/L 136-146 [facility] Serum or plasma total carbon dioxide measurement (moles/volume)Ordered By: Alfred Baron on 03-24-2022 CO2 [Moles/Vol] 28.7 mmol/L 22.0-30.0 [facility] Serum or plasma urea nitroge n measurement (mass/volume)Ordered By: Alfred Baron on 03-24-2022 Urea nitrogen [Mass/Vol] 17 mg/dL 9- [facility] TSH DL <= 0.005 mIU/L QnOrde red By: Alfred BrownTod on 03-24-2022 TSH Qn 2.20 m[IU]/L 0.45-5.33 [facility] MRI LSPINE WO CONon 01-09-20 MRI [...] by: KIKA CHO Date: 2022-01-07 22:16 Normal [facility] Tobacco Screening.on 022 Fall risk assessment a) No falls within the last year [facility] 250 DO Work Phone: Tobacco use status [facility] b) No M -[facility] [employer] 250 DO Work Phone: [phone] XR LSPINE MIN 4 VIEWSon 07-0 XR LSPINE MIN 4 VIEWS EXAMINATION: XR LS PINE MIN 4 VIEWS HISTORY: Low back pain [...] LYNDA BYNUM Date: 2021-12-30 12:12 Normal [facility] Tobacco Screening.on Fall risk assessment a) No falls within the last year [facility] [employer] [place] 250 DO Work Phone: [phone] Tobacco use status [facility] b) No M [facility] [place] [place] 250 DO Work Phone: [phone] Tobacco Screening.on Adult depression screening assessment No [facility] [employer] [place] 250 DO Work Phone: [phone] Tobacco use status [facility] b) No M [facility] [employer] [place] 250 DO Work Phone: [phone] PHQ-2 [facility] 09-02-2021 Adult depression screening assessment No [facility] [employer] [place] 250 DO Work Phone: [phone] Tobacco Screening.on Fall risk assessment a) No falls within the last year [facility] [employer] [place] 250 DO Work Phone: [phone] Tobacco use status [facility] b) No M [facility] [place] 250 DO Work Phone: [phone] Tobacco Screening.on Fall risk assessment a) No falls within the last year [facility] [employer] [place] 250 DO Work Phone: [phone] Tobacco use status [facility] b) No M [facility] 250 DO Work Phone: BASIC METABOLIC PANELon - Calcium mass conc 8.5 mg/dL Low 8.6-10.3 [facility] Comment on above: Order Comment: No: D o not add to previous draw Performed By: #### 3 0, [id number] ####[facility] [place] [address], [place] Chloride molar conc 107 mmol/L Normal 98-107 [facility] Comment on above: Order Comment: No: D o not add to previous draw Performed By: #### 3 5199, 15653 ####[facility] [place] [address], [place] CO2 molar conc 29 mmol/L Normal 21-31 [facility] Comment on above: Order Comment: No: D o not add to previous draw Performed By: #### 3 5199, 85501 ####[facility] [place] [address], [place] Creatinine mass conc 0.89 mg/dL Normal 0.70-1.30 [facility] Comment on above: Order Comment: No: D o not add to previous draw Performed By: #### 3 5199, 96580 ####[facility] [place] [address], [place] GFR/1.73 sq M predicted among blacks MDRD vol rate/area (S/P/Bld) mL/min/{1.73_m2} Normal >60 [facility] Comment on above: Order Comment: No: D o not add to previous draw Result Comment: Calc ulation may not be valid for patients over 70 years Performed By: #### 3 268, 22230 ####[facility] [place] [address], [place] GFR/1.73 sq M predicted among non-blacks MDRD vol rate/area (S/P/Bld) mL/min/{1.73_m2} Normal >60 [facility] Comment on above: Order Comment: No: D o not add to previous draw Result Comment: Calc ulation may not be valid for patients over 70 years Performed By: #### 3 5199, 83933 ####[facility] [place] [address], [facility] Glucose mass conc 95 mg/dL Normal 70-100 [facility] Comment on above: Order Comment: No: D o not add to previous draw Performed By: #### 3 5199, 17232 ####[facility] [place] [address], [place] Potassium molar conc 3.8 mmol/L Normal 3.5-5.1 [facility] Comment on above: Order Comment: No: D o not add to previous draw Performed By: #### 3 5199, 02991 ####[facility] [place] [address], [place] Sodium molar conc 141 mmol/L Normal 136-145 [facility] Comment on above: Order Comment: No: D o not add to previous draw Performed By: #### 3 5199, 74520 ####[facility] [id number], [facility] Urea nitrogen mass conc 19 mg/dL Normal 7-25 T [facility] Comment on above: Order Comment: No: D o not add to previous draw Performed By: #### 3 5199, 31170 ####[facility] [place] [address], [facility] CBC COMPLETE BLOOD COUNTon 07-10-2017 Erythrocyte distribution width Auto Ratio (RBC) 13.2 % Normal 11.5-15.0 [facility] Comment on above: Order Comment: No: D o not add to previous draw Performed By: #### 5 0608 ####[facility] [place] [address], [place] Hematocrit Auto Volume Fraction (Bld) 44.5 % Normal 39.0-50.0 [facility] Comment on above: Order Comment: No: D o not add to previous draw Performed By: #### 5 0608 ####[facility] Hemoglobin mass conc (Bld) 15.0 g/dL Normal 13.0-17.0 [facility] Comment on above: Order Comment: No: D o not add to previous draw Performed By: #### 5 0608 ####[facility] MCH Auto Entitic mass (RBC) 31.1 pg Normal 27.0-33.0 [facility] Comment on above: Order Comment: No: D o not add to previous draw Performed By: #### 5 0608 ####[facility] MCHC Auto mass conc (RBC) 33.7 g/dL Normal 32.0-35.0 [facility] Comment on above: Order Comment: No: D o not add to previous draw Performed By: #### 5 0608 ####[place] [address] MCV Auto Entitic volume (RBC) 92.1 fL Normal 82.0-98.0 [facility] Comment on above: Order Comment: No: D o not add to previous draw Performed By: #### 5 0608 ####[facility] Nucleated RBC/100 WBC Ratio (Bld) 0 % Normal 0-0 [facility] Comment on above: Order Comment: No: D o not add to previous draw Performed By: #### 5 0608 ####[address] PLAT CNT 179 10*3/uL Normal 150-400 [facility] Comment on above: Order Comment: No: D o not add to previous draw Performed By: #### 5 0608 ####[facility] RBC Auto #/vol (Bld) 4.83 10*6/uL Normal 4.20-5.70 Th e [facility] Comment on above: Order Comment: No: D o not add to previous draw Performed By: #### 5 0608 ####[facility] WBC Auto #/vol (Bld) 7.52 10*3/uL Normal 4.00-10.60 Th e [facility] Comment on above: Order Comment: No: D o not add to previous draw Performed By: #### 5 0608 ####[place] [address] History and Physicalon 05-10 History and Physical [id number] Buckner Admitted: 05/09/2018 Date of : 1940 Attending Physician: Niki Ross MD Room #: 3CD [id number] Discharge Date: HISTORY AND PHYSICALHISTORY OF PRESENT ILLNESS: The patient is a 77-year-old [facility] and [facility] was concern for unstable [...] stents. Also past medical history of hypertension andhyperlipidemia.MEDI CATIONS: The patient takes Norvasc 10 mg daily, loratadine 10 mgdaily, Imdur 30 mg daily, Xanax 0.25 at bedtime, Lipitor 20 mg daily,aspirin 81 mg daily, and nitroglycerin sublingual. The patient does notseem to be on any beta-blockers.ALLERGIE S: The patient has allergy to Brilinta as well as Plavix.SOCIAL HISTORY: Ex-smoker, quit about 30 years ago, and he is occasionaldrinker.PAST SURGICAL HISTORY: Beside cardiac cath and stents, the patient hadprostatectomy for prostate cancer and he had recurrence that requiredradiation treatment. The patient also had right shoulder melanoma removedand he had also lower back surgery, what looks like laminectomy.FAMILY HISTORY: Dad had what the patient describes as colon cancer. Momdied from old age and he had a brother in the 40s with DE.REVIEW OF SYSTEMS: Again, mostly the 2 things bothering him somehow littlebit his shortness of breath as well as this jaw discomfort.PHYSICAL EXAMINATION: HEENT: Eyes; extraocular muscles intact. NECK:Supple. No JVD or lymphadenopathy.LUNGS: Clear to auscultation.HEART: S1, S2.ABDOMEN: Soft. Positive bowel sounds. EXTREMITIES: Positive pulses.NEUROLOGIC: The patient alert, awake, oriented x3. No focal neurodeficit. MUSCULOSKELETAL: No major joint deformities or tenderness oredema.PSYCHIATRIC: He is little bit anxious, otherwise, denies feeling depressedor suicidal. SKIN: Intact.LABORATORY DATA: Again at [facility], the patient had EKG, whichshowed sinus rhythm. [...] by:Niki Ross MD 05/11/2018 05:48 P Niki Ross, MDDate Dict: 05/09/2018/09:16 P/Niki Ross MDDate Trans: 05/10/2018 05:14 [id number] Normal [facility] TROPONIN-Ion 05-10-2018 Troponin I.cardiac mass conc 0.01 ng/mL Normal 0.00-0.04 [facility] Comment on above: Order Comment: No: D o not add to previous draw Result Comment: REFE RENCE RANGES: 0.00 - 0.04 ng/ml NORMAL 0.05 - 0.50 ng/ml INDETERMINATE > 0.50 ng/ml CONSISTENT WITH AN M.I. Performed By: #### 3 9700, 69435 ####[facility] [place] [address], [facility] Troponin I.cardiac mass conc 0.01 ng/mL Normal 0.00-0.04 [facility] Comment on above: Order Comment: No: D o not add to previous draw Result Comment: REFE RENCE RANGES: 0.00 - 0.04 ng/ml NORMAL 0.05 - 0.50 ng/ml INDETERMINATE > 0.50 ng/ml CONSISTENT WITH AN M.I. Performed By: #### 3 5200 ####[facility] [facility].[address] TROPONIN-Ion 05-09-2018 Troponin I.cardiac mass conc 0.00 ng/mL Normal 0.00-0.04 [facility] Comment on above: Order Comment: No: D o not add to previous draw Result Comment: REFE RENCE RANGES: 0.00 - 0.14 ng/ml NEGATIVE 0.15 - 0.25 ng/ml INDETERMINATE > 0.25 ng/ml INDICATIVE OF AN M.I. Performed By: #### [id number] ####[facility]3000 [facility].[address] Vital Signs Date Time Vital Sign Value Performing Clinician Facility 02-02-2024 11:24-0400 Body height 175.26 cm MD Miriam Juarez Work Phone: [facility] 02-02-2024 11:24-0400 Body mass index (BMI) [Ratio] 28.8 kg/m2 MD Miriam Juarez Work Phone: [facility] 02-02-2024 11:24-0400 Body weight 88.45 kg MD Miriam Juarez Work Phone: [facility] 11-15-2023 11:30-0400 Body height 175.26 cm DO Irving Ball Work Phone: [facility] 11-15-2023 11:30-0400 Body mass index (BMI) [Ratio] 29.2 kg/m2 DO Irving Ball Work Phone: [facility] 11-15-2023 11:30-0400 Body weight 89.81 kg DO Irving Ball Work Phone: [facility] 11-15-2023 11:30-0400 Diastolic blood pressure 73 mm[Hg] DO Irving Ball Work Phone: [facility] 11-15-2023 11:30-0400 Heart rate 56 /min DO Irving Ball Work Phone: [facility] 11-15-2023 11:30-0400 Respiratory rate 12 /min DO Irving Ball Work Phone: [facility] 11-15-2023 11:30-0400 Systolic blood pressure 125 mm[Hg] DO Irving Ball Work Phone: [facility] 10-26-2023 10:24-0400 Diastolic blood pressure 75 mm[Hg] DO Irving Ball Work Phone: [facility] 10-26-2023 10:24-0400 Heart rate 43 /min DO Irving Ball Work Phone: [facility] 10-26-2023 10:24-0400 Respiratory rate 18 /min DO Irving Ball Work Phone: [facility] 10-26-2023 10:24-0400 SaO2% (BldA) [Mass fraction] 96 % DO Irving Ball Work Phone: [facility] 10-26-2023 10:24-0400 Systolic blood pressure 131 mm[Hg] DO Irving Ball Work Phone: [facility] 10-26-2023 08:35-0400 Body height 175.26 cm DO Irving Ball Work Phone: [facility] 10-26-2023 08:35-0400 Body weight 89.35 kg DO Irving Ball Work Phone: [facility] 10-17-2023 14:27-0400 Body height 175.26 cm DO Irving Ball Work Phone: [facility] 10-17-2023 14:27-0400 Body mass index (BMI) [Ratio] 23.1 kg/m2 DO Irving Ball Work Phone: [facility] 10-17-2023 14:27-0400 Body weight 71 kg DO Irving Ball Work Phone: [facility] 09-23-2023 11:12-0400 Body height 175.26 cm DO Irving Ball Work Phone: [facility] 09-23-2023 11:12-0400 Body mass index (BMI) [Ratio] 29.5 kg/m2 DO Irving Ball Work Phone: [facility] 09-23-2023 11:12-0400 Body weight 90.71 kg DO Irving Ball Work Phone: [facility] 09-23-2023 11:12-0400 Diastolic blood pressure 75 mm[Hg] DO Irving Ball Work Phone: [facility] 09-23-2023 11:12-0400 Heart rate 53 /min DO Irving Ball Work Phone: [facility] 09-23-2023 11:12-0400 Respiratory rate 12 /min DO Irving Ball Work Phone: [facility] 09-23-2023 11:12-0400 Systolic blood pressure 165 mm[Hg] DO Irving Ball Work Phone: [facility] 09-14-2023 09:27-0400 Body height 175.26 cm DO Irving Ball Work Phone: [facility] 09-14-2023 09:27-0400 Body mass index (BMI) [Ratio] 30 kg/m2 DO Irving Ball Work Phone: [facility] 09-14-2023 09:27-0400 Body weight 92.24 kg DO Irving Ball Work Phone: [facility] 09-14-2023 09:27-0400 Diastolic blood pressure 75 mm[Hg] DO Irving Ball Work Phone: [facility] 09-14-2023 09:27-0400 Heart rate 67 /min DO Irving Ball Work Phone: [facility] 09-14-2023 09:27-0400 Respiratory rate 16 /min DO Irving Ball Work Phone: [facility] 09-14-2023 09:27-0400 Systolic blood pressure 134 mm[Hg] DO Irving Ball Work Phone: [facility] 08-04-2023 11:00-0500 Body height 175.26 cm Irving Ball Other [employer] Other 08-04-2023 11:00-0500 Body mass index (BMI) [Ratio] 29.89 kg/m2 Irving Ball Other [employer] Other 08-04-2023 11:00-0500 Body weight 91.81 kg Irving Ball Other [employer] Other 08-04-2023 11:00-0500 Diastolic blood pressure 53 mm[Hg] Irving Ball Other [employer] Other 08-04-2023 11:00-0500 Respiratory rate 12 /min Irving Ball Other [employer] Other 08-04-2023 11:00-0500 Systolic blood pressure 132 mm[Hg] Irving Ball Other [employer] Other 07-25-2023 13:04-0500 Body height 175.3 cm Brendon Baron DO Work Phone: [facility] 07-25-2023 13:04-0500 Body mass index (BMI) [Ratio] 29.98 kg/m2 Brendon Baron DO Work Phone: [facility] 07-25-2023 13:04-0500 Body weight 92.08 kg Brendon Baron DO Work Phone: [facility] 07-25-2023 13:04-0500 Diastolic blood pressure 70 mm[Hg] Brendon Baron DO Work Phone: [facility] 07-25-2023 13:04-0500 Heart rate 44 /min Brendon Baron DO Work Phone: [facility] 07-25-2023 13:04-0500 Systolic blood pressure 102 mm[Hg] Brendon Baron DO Work Phone: [facility] 05-13-2023 11:15-0500 Body height 175.26 cm Irving Ball Other [employer] Other 05-13-2023 11:15-0500 Body mass index (BMI) [Ratio] 29.15 kg/m2 Irving Ball Other [employer] Other 05-13-2023 11:15-0500 Body weight 89.54 kg Irving Ball Other [employer] Other 05-13-2023 11:15-0500 Diastolic blood pressure 62 mm[Hg] Irving Ball Other [employer] Other 05-13-2023 11:15-0500 Respiratory rate 12 /min Irving Ball Other [employer] Other 05-13-2023 11:15-0500 Systolic blood pressure 114 mm[Hg] Irving Ball Other [employer] Other 05-04-2023 11:30-0500 Body height 175.26 cm Irving Ball Other [employer] Other 05-04-2023 11:30-0500 Body mass index (BMI) [Ratio] 29.12 kg/m2 Irving Ball Other [employer] Other 05-04-2023 11:30-0500 Body weight 89.45 kg Irving Ball Other [employer] Other 05-04-2023 11:30-0500 Diastolic blood pressure 65 mm[Hg] Irving Ball Other [employer] Other 05-04-2023 11:30-0500 Respiratory rate 12 /min Irving Ball Other [facility] [employer] Other 05-04-2023 11:30-0500 Systolic blood pressure 124 mm[Hg] Irving Ball Other [facility] [employer] Other 04-21-2023 11:11-0400 Diastolic blood pressure 70 mm[Hg] DO Irving Ball Work Phone: [facility] 04-21-2023 11:11-0400 Heart rate 51 /min DO Irving Ball Work Phone: [facility] 04-21-2023 11:11-0400 Respiratory rate 16 /min DO Irving Ball Work Phone: [facility] 04-21-2023 11:11-0400 SaO2% (BldA) [Mass fraction] 95 % DO Irving Ball Work Phone: [facility] 04-21-2023 11:11-0400 Systolic blood pressure 133 mm[Hg] DO Irving Ball Work Phone: [facility] 04-21-2023 08:03-0400 Body height 175.26 cm DO Irving Ball Work Phone: [facility] 04-21-2023 08:03-0400 Body temperature 98.2 [degF] DO Irving Ball Work Phone: [facility] 04-21-2023 08:03-0400 Body weight 86.18 kg DO Irving Ball Work Phone: [facility] 03-01-2023 15:30-0400 Body height 175.26 cm Markell Garza Other [employer] [facility] [employer] Other 03-01-2023 15:30-0400 Body mass index (BMI) [Ratio] 28.94 kg/m2 Markell Garza Other [employer] [facility] [employer] Other 03-01-2023 15:30-0400 Body weight 88.91 kg Markell Garza Other [employer] Other 03-01-2023 15:30-0400 Diastolic blood pressure 78 mm[Hg] Markell Garza Other [employer] Other 03-01-2023 15:30-0400 Systolic blood pressure 130 mm[Hg] Markell Garza Other [employer] Other 02-01-2023 11:30-0400 Body height 175.26 cm Irving Ball Other [employer] Other 02-01-2023 11:30-0400 Body mass index (BMI) [Ratio] 28.91 kg/m2 Irving Ball Other [employer] Other 02-01-2023 11:30-0400 Body weight 88.81 kg Irving Ball Other [employer] Other 02-01-2023 11:30-0400 Diastolic blood pressure 71 mm[Hg] Irving Ball Other [employer] Other 02-01-2023 11:30-0400 Respiratory rate 12 /min Irving Ball Other [employer] Other 02-01-2023 11:30-0400 Systolic blood pressure 126 mm[Hg] Irving Ball Other [employer] Other 01-03-2023 11:01-0400 Heart rate 46 /min Irving E Ball Work Phone: [facility] [employer] DO Work Phone: 01-03-2023 10:58-0400 Body height 175.26 cm Irving E Ball Work Phone: [facility] DO Work Phone: 01-03-2023 10:58-0400 Body mass index (BMI) [Ratio] 29.24 kg/m2 Irving E Ball Work Phone: [facility] DO Work Phone: 01-03-2023 10:58-0400 Body surface area Derived from formula 2.06 m2 Irving E Ball Work Phone: [facility] DO Work Phone: 01-03-2023 10:58-0400 Body weight 89.81 kg Irving E Ball Work Phone: [facility] DO Work Phone: 01-03-2023 10:58-0400 Diastolic blood pressure 80 mm[Hg] Irving E Ball Work Phone: [facility] DO Work Phone: 01-03-2023 10:58-0400 Systolic blood pressure 150 mm[Hg] Irving E Ball Work Phone: [facility] DO Work Phone: 12-08-2022 11:55-0400 Diastolic blood pressure 66 mm[Hg] Irving E [facility] Work Phone: 12-08-2022 11:55-0400 Heart rate 52 /min Irving E Ball Work Phone: [facility] DO Work Phone: 12-08-2022 11:55-0400 Systolic blood pressure 124 mm[Hg] Irving E Ball Work Phone: [facility] DO Work Phone: 12-08-2022 11:54-0400 Body height 175.26 cm Irving E Ball Work Phone: [facility] DO Work Phone: 12-08-2022 11:54-0400 Body mass index (BMI) [Ratio] 29.24 kg/m2 Irving E Ball Work Phone: [facility] DO Work Phone: 12-08-2022 11:54-0400 Body surface area Derived from formula 2.06 m2 Irving E Ball Work Phone: [facility] DO Work Phone: 12-08-2022 11:54-0400 Body weight 89.81 kg Irving E Ball Work Phone: [facility] DO Work Phone: 12-08-2022 11:54-0400 Diastolic blood pressure 70 mm[Hg] Irving E Ball Work Phone: [facility] DO Work Phone: 12-08-2022 11:54-0400 Systolic blood pressure 130 mm[Hg] Irving E Ball Work Phone: [facility] DO Work Phone: 11-29-2022 09:30-0400 Body height 175.26 cm Irving E Ball Work Phone: [facility] DO Work Phone: 11-29-2022 09:30-0400 Body mass index (BMI) [Ratio] 29.09 kg/m2 Irving E Ball Work Phone: [facility] DO Work Phone: 11-29-2022 09:30-0400 Body surface area Derived from formula 2.05 m2 Irving E Ball Work Phone: [facility] DO Work Phone: 11-29-2022 09:30-0400 Body weight 89.36 kg Irving E Ball Work Phone: [facility] [employer] [facility] DO Work Phone: 11-29-2022 09:30-0400 Diastolic blood pressure 82 mm[Hg] Irving E Ball Work Phone: [facility] [employer] [facility] DO Work Phone: 11-29-2022 09:30-0400 Heart rate 44 /min Irving E Ball Work Phone: [facility] [employer] [facility] DO Work Phone: 11-29-2022 09:30-0400 Systolic blood pressure 142 mm[Hg] Irving E Ball Work Phone: [facility] [employer] [facility] DO Work Phone: 11-02-2022 12:30-0400 Body height 175.26 cm Irving Ball Other [facility] [employer] Other 11-02-2022 12:30-0400 Body mass index (BMI) [Ratio] 28.88 kg/m2 Irving Ball Other [employer] Other 11-02-2022 12:30-0400 Body weight 88.72 kg Irving Ball Other [employer] Other 11-02-2022 12:30-0400 Diastolic blood pressure 70 mm[Hg] Irving Ball Other [employer] Other 11-02-2022 12:30-0400 Respiratory rate 12 /min Irving Ball Other [employer] Other 11-02-2022 12:30-0400 Systolic blood pressure 148 mm[Hg] Irving Ball Other [employer] Other 10-28-2022 21:03-0400 Diastolic blood pressure 66 mm[Hg] DO Irving Ball Work Phone: [facility] 10-28-2022 21:03-0400 Heart rate 57 /min DO Irving Ball Work Phone: [facility] 10-28-2022 21:03-0400 Respiratory rate 16 /min DO Irving Ball Work Phone: [facility] 10-28-2022 21:03-0400 SaO2% (BldA) [Mass fraction] 96 % DO Irving Ball Work Phone: [facility] 10-28-2022 21:03-0400 Systolic blood pressure 135 mm[Hg] DO Irving Ball Work Phone: [facility] 10-28-2022 20:17-0400 Body height 175.26 cm DO Irving Ball Work Phone: [facility] 10-28-2022 20:17-0400 Body temperature 98.3 [degF] DO Irving Ball Work Phone: [facility] 10-28-2022 20:17-0400 Body weight 90.7 kg DO Irving Ball Work Phone: [facility] 10-26-2022 14:30-0400 Body height 175.26 cm Irving Ball Other [facility] [employer] Other 10-26-2022 14:30-0400 Body mass index (BMI) [Ratio] 29.32 kg/m2 Irving Ball Other [employer] Other 10-26-2022 14:30-0400 Body weight 90.08 kg Irving Ball Other [employer] Other 10-26-2022 14:30-0400 Diastolic blood pressure 80 mm[Hg] Irving Ball Other [employer] Other 10-26-2022 14:30-0400 Systolic blood pressure 147 mm[Hg] Irving Ball Other [employer] Other 10-01-2022 09:45-0400 Body height 175.26 cm Irving Ball Other [employer] Other 10-01-2022 09:45-0400 Body mass index (BMI) [Ratio] 29.41 kg/m2 Irving Ball Other [employer] Other 10-01-2022 09:45-0400 Body weight 90.36 kg Irving Ball Other [employer] Other 10-01-2022 09:45-0400 Diastolic blood pressure 74 mm[Hg] Irving Ball Other [employer] Other 10-01-2022 09:45-0400 Respiratory rate 12 /min Irving Ball Other [employer] Other 10-01-2022 09:45-0400 Systolic blood pressure 157 mm[Hg] Irving Ball Other [employer] Other 09-02-2022 11:30-0500 Body height 175.26 cm Irving Ball Other [employer] Other 09-02-2022 11:30-0500 Body mass index (BMI) [Ratio] 29.5 kg/m2 Irving Ball Other [employer] Other 09-02-2022 11:30-0500 Body weight 90.63 kg Irving Ball Other [employer] Other 09-02-2022 11:30-0500 Diastolic blood pressure 70 mm[Hg] Irving Ball Other [employer] Other 09-02-2022 11:30-0500 Respiratory rate 12 /min Irving Ball Other [employer] Other 09-02-2022 11:30-0500 Systolic blood pressure 112 mm[Hg] Irving Ball Other [employer] Other 08-18-2022 09:45-0500 Body height 175.26 cm Irving Ball Other [employer] Other 08-18-2022 09:45-0500 Body mass index (BMI) [Ratio] 29.59 kg/m2 Irving Ball Other [employer] Other 08-18-2022 09:45-0500 Body weight 90.9 kg Irving Ball Other [employer] Other 08-18-2022 09:45-0500 Diastolic blood pressure 86 mm[Hg] Irving Ball Other [employer] Other 08-18-2022 09:45-0500 Respiratory rate 12 /min Irving Ball Other [employer] Other 08-18-2022 09:45-0500 Systolic blood pressure 142 mm[Hg] Irving Ball Other [employer] Other 07-15-2022 10:06-0500 Body height 175.26 cm Irving E Ball Work Phone: [facility] [employer] [facility] Work Phone: 07-15-2022 10:06-0500 Body mass index (BMI) [Ratio] 28.94 kg/m2 Irving E Ball Work Phone: [employer] [facility] [employer] [facility] DO Work Phone: 07-15-2022 10:06-0500 Body surface area Derived from formula 2.05 m2 Irving E Ball Work Phone: [facility] DO Work Phone: 07-15-2022 10:06-0500 Body weight 88.91 kg Irving E Ball Work Phone: [facility] DO Work Phone: 07-15-2022 10:06-0500 Diastolic blood pressure 78 mm[Hg] Irving E Ball Work Phone: [facility] DO Work Phone: 07-15-2022 10:06-0500 Heart rate 50 /min Irving E Ball Work Phone: [facility] DO Work Phone: 07-15-2022 10:06-0500 Systolic blood pressure 118 mm[Hg] Irving E Ball Work Phone: [facility] DO Work Phone: 01-05-2022 13:30-0400 Body height 175.26 cm Irving E Ball Work Phone: [facility] DO Work Phone: 01-05-2022 13:30-0400 Body mass index (BMI) [Ratio] 29.09 kg/m2 Irving E Ball Work Phone: [facility] DO Work Phone: 01-05-2022 13:30-0400 Body surface area Derived from formula 2.05 m2 Irving E Ball Work Phone: [facility] DO Work Phone: 01-05-2022 13:30-0400 Body weight 89.36 kg Irving E Ball Work Phone: [facility] DO Work Phone: 01-05-2022 13:30-0400 Diastolic blood pressure 62 mm[Hg] Irving E Ball Work Phone: [facility] DO Work Phone: 01-05-2022 13:30-0400 Heart rate 50 /min Irving E Ball Work Phone: [facility] DO Work Phone: 01-05-2022 13:30-0400 Systolic blood pressure 120 mm[Hg] Irving E Ball Work Phone: [facility] DO Work Phone: 12-14-2021 12:42-0400 Body height 175.26 cm Irving E Ball Work Phone: [facility] DO Work Phone: 12-14-2021 12:42-0400 Body mass index (BMI) [Ratio] 28.65 kg/m2 Irving E Ball Work Phone: [facility] DO Work Phone: 12-14-2021 12:42-0400 Body surface area Derived from formula 2.04 m2 Irving E Ball Work Phone: [facility] DO Work Phone: 12-14-2021 12:42-0400 Body weight 88 kg Irving E Ball Work Phone: [facility] DO Work Phone: 12-14-2021 12:42-0400 Diastolic blood pressure 80 mm[Hg] Irving E Ball Work Phone: [facility] DO Work Phone: 12-14-2021 12:42-0400 Heart rate 50 /min Irving E Ball Work Phone: [facility] 250 DO Work Phone: 12-14-2021 12:42-0400 Systolic blood pressure 134 mm[Hg] Irving E Ball Work Phone: [facility] DO Work Phone: 12-14-2021 08:42-0400 Body height 175.26 cm Irving Floyd Ball Work Phone: [facility] 250 DO Work Phone: 12-14-2021 08:42-0400 Body mass index (BMI) [Ratio] 28.65 kg/m2 Irving Floyd Ball Work Phone: [facility] DO Work Phone: 12-14-2021 08:42-0400 Body surface area Derived from formula 2.04 m2 Irving Floyd Ball Work Phone: [facility] DO Work Phone: 12-14-2021 08:42-0400 Body weight 88 kg Irving Floyd Ball Work Phone: [facility] DO Work Phone: 12-14-2021 08:42-0400 Diastolic blood pressure 80 mm[Hg] Irving Floyd Ball Work Phone: [facility] DO Work Phone: 12-14-2021 08:42-0400 Heart rate 49 /min Irving Floyd Ball Work Phone: [facility] DO Work Phone: 12-14-2021 08:42-0400 Systolic blood pressure 154 mm[Hg] Irving Floyd Ball Work Phone: [facility] DO Work Phone: 10-16-2021 14:16-0400 Body height 175.26 cm Irving E Ball Work Phone: [facility] 250 DO Work Phone: 10-16-2021 14:16-0400 Body mass index (BMI) [Ratio] 29.54 kg/m2 Irving Floyd Ball Work Phone: [facility] DO Work Phone: 10-16-2021 14:16-0400 Body surface area Derived from formula 2.07 m2 Irving E Ball Work Phone: [facility] DO Work Phone: 10-16-2021 14:16-0400 Body weight 90.72 kg Irving Floyd Ball Work Phone: [facility] DO Work Phone: 10-16-2021 14:16-0400 Diastolic blood pressure 70 mm[Hg] Irving Floyd Ball Work Phone: [facility] DO Work Phone: 10-16-2021 14:16-0400 Heart rate 59 /min Irving Floyd Ball Work Phone: [facility] DO Work Phone: 10-16-2021 14:16-0400 Systolic blood pressure 134 mm[Hg] Irving Floyd Ball Work Phone: [facility] DO Work Phone: 10-07-2021 09:36-0400 Body height 175.26 cm Irving Floyd Ball Work Phone: [facility] DO Work Phone: 10-07-2021 09:36-0400 Body mass index (BMI) [Ratio] 28.86 kg/m2 Irving Floyd Ball Work Phone: [facility] DO Work Phone: 10-07-2021 09:36-0400 Body surface area Derived from formula 2.05 m2 Irving Floyd Ball Work Phone: [facility] DO Work Phone: 10-07-2021 09:36-0400 Body weight 88.63 kg Irving Floyd Ball Work Phone: [facility] DO Work Phone: 10-07-2021 09:36-0400 Diastolic blood pressure 70 mm[Hg] Irving E Ball Work Phone: [facility] DO Work Phone: 10-07-2021 09:36-0400 Heart rate 68 /min Irving E Ball Work Phone: [facility] DO Work Phone: 10-07-2021 09:36-0400 Systolic blood pressure 136 mm[Hg] Irving E Ball Work Phone: [facility] DO Work Phone: 09-02-2021 09:57-0500 Body height 175.26 cm Irving Floyd Ball Work Phone: [facility] DO Work Phone: 09-02-2021 09:57-0500 Body mass index (BMI) [Ratio] 29.39 kg/m2 Irving Floyd Ball Work Phone: [facility] DO Work Phone: 09-02-2021 09:57-0500 Body surface area Derived from formula 2.06 m2 Irving Floyd Ball Work Phone: [facility] DO Work Phone: 09-02-2021 09:57-0500 Body weight 90.27 kg Irving E Ball Work Phone: [facility] DO Work Phone: 09-02-2021 09:57-0500 Diastolic blood pressure 98 mm[Hg] Irving E Ball Work Phone: [facility] DO Work Phone: 09-02-2021 09:57-0500 Diastolic blood pressure 102 mm[Hg] Irving Floyd Ball Work Phone: [facility] DO Work Phone: 09-02-2021 09:57-0500 Systolic blood pressure 180 mm[Hg] Irving Floyd Ball Work Phone: [facility] DO Work Phone: 09-02-2021 09:57-0500 Systolic blood pressure 172 mm[Hg] Irving Floyd Ball Work Phone: [facility] DO Work Phone: 09-02-2021 09:57-0500 Systolic blood pressure 152 mm[Hg] Irving Floyd Ball Work Phone: [facility] DO Work Phone: 09-02-2021 09:57-0500 66 1 Irving Floyd Ball Work Phone: [facility] DO Work Phone: Comment on above: [employer] 09-02-2021 09:57-0500 58 1 Irving Floyd Ball Work Phone: [facility] 250 DO Work Phone: Comment on above: [employer] 07-01-2021 11:57-0500 Body height 175.26 cm Irving Floyd Ball Work Phone: [facility] DO Work Phone: 07-01-2021 11:57-0500 Body mass index (BMI) [Ratio] 28.8 kg/m2 Irving Floyd Ball Work Phone: [facility] DO Work Phone: 07-01-2021 11:57-0500 Body surface area Derived from formula 2.04 m2 Irving Floyd Ball Work Phone: [facility] DO Work Phone: 07-01-2021 11:57-0500 Body weight 88.45 kg Irving Floyd Ball Work Phone: [facility] DO Work Phone: 07-01-2021 11:57-0500 Diastolic blood pressure 76 mm[Hg] Irving E Ball Work Phone: [facility] DO Work Phone: 07-01-2021 11:57-0500 Heart rate 42 /min Irving E Ball Work Phone: [facility] DO Work Phone: 07-01-2021 11:57-0500 Systolic blood pressure 145 mm[Hg] Irving Floyd Ball Work Phone: [facility] DO Work Phone: Encounters Encounter Date Encounter Type Care Provider Facility Start: 02-13-2024 ambulatory Bethel Lopez ty:[facility] Start: 02-02-2024 End: 02-02-2024 ambulatory MD Miriam Juarez Work Phone: [facility] Work Phone: Start: 02-02-2024 End: 02-02-2024 Patient encounter procedure MD Miriam Juarez Work Phone: [facility] Work Phone: Start: 01-02-2024 End: 01-02-2024 ambulatory [facility] Start: 12-28-2023 End: 12-28-2023 ambulatory [facility] Start: 12-16-2023 Non-patient / Non-visit MD Deanna Juarez Work Phone: [facility] Work Phone: Start: 11-22-2023 End: 11-22-2023 ambulatory Miriam Ann Facility:[facility] Start: 11-22-2023 Non-patient / Non-visit DO Levar Canela Work Phone: [facility] Work Phone: Start: 11-22-2023 End: 11-22-2023 ambulatory DO Irving Canela Work Phone: [facility] Work Phone: Start: 11-22-2023 End: 11-22-2023 Departed Referred DO Irving Canela Work Phone: [facility] Start: 11-15-2023 End: 11-15-2023 ambulatory DO Irving Canela Work Phone: [facility] Work Phone: Start: 11-15-2023 End: 11-15-2023 Patient encounter procedure DO Irving Canela Work Phone: [facility] Work Phone: Start: 11-14-2023 End: 11-14-2023 ambulatory [facility] BARBOSA Not Available Start: 10-29-2023 Non-patient / Non-visit DO Levar Canela Work Phone: [facility] Work Phone: Start: 10-26-2023 End: 10-26-2023 ambulatory Irving Canela Facility:[facility] Start: 10-26-2023 Non-patient / Non-visit DO Levar tania Ball Work Phone: [facility] Gastroenterology Work Phone: Start: 10-26-2023 End: 10-26-2023 Admission to same day surgery center DO Irving Canela Work Phone: [facility]Dig[facility] Work Phone: Start: 10-20-2023 Non-patient / Non-visit DO Levar marin Ball Work Phone: [facility] Work Phone: Start: 10-17-2023 End: 10-17-2023 ambulatory DO Irving Ball Work Phone: [facility] Work Phone: Start: 10-17-2023 End: 10-17-2023 Patient encounter procedure DO Irving Ball Work Phone: [facility] Gastroenterology Work Phone: Start: 2023 Non-patient / Non-visit DO Levar tania Ball Work Phone: [facility] Work Phone: Start: 09-23-2023 End: 09-23-2023 ambulatory DO Irving Ball Work Phone: [facility] Work Phone: Start: 09-23-2023 End: 09-23-2023 Patient encounter procedure DO Irving Ball Work Phone: [facility] Work Phone: Start: 09-14-2023 End: 09-14-2023 ambulatory DO Irving Ball Work Phone: [facility] Work Phone: Start: 09-14-2023 End: 09-14-2023 Patient encounter procedure DO Irving Ball Work Phone: [facility] Work Phone: Start: 09-01-2023 Non-patient / Non-visit DO Levar tania Ball Work Phone: [facility] Pulmonary Disease Work Phone: Start: 08-29-2023 End: 08-29-2023 ambulatory W Murali Baron Facility:[facility] Start: 08-29-2023 End: 08-29-2023 Patient encounter procedure DO Irving Ball Work Phone: [facility]-Respiratory Therapy Work Phone: Start: 08-26-2023 Non-patient / Non-visit DO Levar Canela Work Phone: [facility] [employer] Work Phone: Start: 08-15-2023 End: 08-15-2023 ambulatory BASHIR A PETITTI Not Available Start: 08-04-2023 End: 08-04-2023 ambulatory Irving Canela Other [facility] [employer] Other Start: 08-04-2023 Office outpatient vi sit 25 minutes Irving Canela [facility] Start: 07-25-2023 End: 07-25-2023 Office outpatient visit 25 minutes Brendon Carissa Nichols DO Work Phone: [facility] Comment on above: Bradycardia; H/O non-ST elevation myocardial infarction (NSTEMI); Paroxysmal atrial fibrillation (CMS/HCC); S/P PTCA (percutaneous transluminal coronary angioplasty) Start: 07-25-2023 End: 07-25-2023 ambulatory [facility] Start: 06-14-2023 End: 06-14-2023 ambulatory BASHIR A PETITTI Not Available Start: 05-13-2023 End: 05-13-2023 ambulatory Irving Canela Other [facility] [employer] Other Start: 05-13-2023 Office outpatient vi sit 15 minutes Irving Canela [facility] Start: 05-12-2023 End: 05-12-2023 ambulatory BASHIR A PETITTI Not Available Start: 05-04-2023 End: 05-04-2023 ambulatory Irving Canela Other [employer] Other Start: 05-04-2023 Office outpatient vi sit 25 minutes Irving Canela [facility] Start: 04-21-2023 Telephone encounter Markell glasgow [facility] Start: 04-21-2023 End: 04-21-2023 ambulatory Irving Ball Facility:[facility] Start: 04-21-2023 End: 04-21-2023 Admission to same day surgery center DO Irving Canela Work Phone: [facility] Work Phone: Start: 04-21-2023 End: 04-21-2023 ambulatory DO Irving Canela Work Phone: [facility] Work Phone: Start: 03-25-2023 End: 03-25-2023 ambulatory Irving Canela Other [facility] [employer] Other Start: 03-25-2023 Telephone encounter Irving Canela [facility] Start: 03-23-2023 FUV, Provider: Florence Norman, Status: Pen, Time: 12:30 PM Irving Canela Work Phone: [facility] DO Work Phone: Start: 03-23-2023 ambulatory Ms. Florence Vergara Aden Facility: Start: 03-22-2023 Chart Update Irving Floyd Arcenio heron Work Phone: [facility] DO Work Phone: Start: 03-21-2023 Chart Update Irving Floyd Arcenio shelby Work Phone: [facility] DO Work Phone: Start: 03-21-2023 End: 03-21-2023 ambulatory Alfred Baron Facility:[facility] Start: 03-21-2023 End: 03-21-2023 ambulatory DO Irving Canela Work Phone: [facility] Work Phone: Start: 03-21-2023 End: 03-21-2023 Patient encounter procedure DO Irving Canela Work Phone: [facility] Work Phone: Start: 03-07-2023 ambulatory Ms. Florence Aden Facility: Start: 03-01-2023 End: 03-01-2023 ambulatory Markell Garza Other [facility] [employer] Other Start: 03-01-2023 Office outpatient ne w 45 minutes Markell Garza [facility] Gastroenterology Start: 02-01-2023 End: 02-01-2023 ambulatory Irving Canela Other [facility] [employer] Other Start: 02-01-2023 Office outpatient vi sit 25 minutes Irving Canela [facility] Start: 01-13-2023 Rx Renewal Irving E Bal l Work Phone: [facility] DO Work Phone: Start: 01-03-2023 Office outpatient vi sit 15 minutes Irving Floyd Ball Work Phone: [facility] DO Work Phone: Start: 01-03-2023 Patient encounter procedure Irving Canela Work Phone: [facility] DO Work Phone: Start: 01-03-2023 ambulatory Ms. Florence Aden Facility: Start: 12-31-2022 Rx Renewal Irving E Bal l Work Phone: [facility] [facility] DO Work Phone: Start: 12-28-2022 ambulatory Rose Green Facility : Start: 12-08-2022 Office outpatient vi sit 5 minutes Irving Floyd Ball Work Phone: [facility] DO Work Phone: Start: 12-08-2022 Patient encounter procedure Irving Floyd Ball Work Phone: [facility] DO Work Phone: Start: 12-08-2022 ambulatory Ms. Florence Aden Facility: Start: 11-29-2022 Office outpatient vi sit 25 minutes Irving Floyd Ball Work Phone: [facility] DO Work Phone: Start: 11-29-2022 ambulatory Ms. Florence Aden Facility: Start: 11-02-2022 End: 11-02-2022 ambulatory Irving Canela Other [employer] Other Start: 11-02-2022 Transitional care manage srvc 14 day discharge Irving Canela [facility] Start: 11-01-2022 End: 11-01-2022 ambulatory Irving Canela Other [employer] Other Start: 11-01-2022 Telephone encounter Irving ROSS [facility] Start: 10-31-2022 End: 10-31-2022 ambulatory Irving Rola Other [employer] Other Start: 10-31-2022 Telephone encounter Irving Canela [facility] Start: 10-29-2022 End: 10-29-2022 ambulatory Irving Canela Other [employer] Other Start: 10-29-2022 Telephone encounter Irving [facility] VANDANA [facility] Start: 10-28-2022 Evaluation and management of inpatient DO Irving Canela Work Phone: [facility] [place] [facility] Work Phone: Start: 10-28-2022 observation encounter DO Miguel Canela Work Phone: [facility] Work Phone: Start: 10-26-2022 End: 10-26-2022 ambulatory Irving Canela Other [employer] Other Start: 10-26-2022 Patient encounter procedure Irving Canela [facility] Start: 10-20-2022 End: 10-21-[address] IRVING CANELA Facility:[facility] Start: 10-15-2022 Rx Renewal Irving shelby Work Phone: [facility] DO Work Phone: Start: 10-15-2022 End: 10-15-2022 ambulatory DO Irving Ball Work Phone: [facility] Work Phone: Start: 10-15-2022 End: 10-15-2022 Patient encounter procedure DO Irving Ball Work Phone: [facility] Work Phone: Start: 10-01-2022 End: 10-01-2022 ambulatory Irving Ball Other [employer] Other Start: 10-01-2022 Office outpatient vi sit 25 minutes Irving Ball [facility] Start: 09-30-2022 End: 09-30-2022 ambulatory Irving Ball Other [employer] Other Start: 09-30-2022 Telephone encounter Irving Canela FP [facility] Start: 09-08-2022 Patient encounter procedure Irving Floyd Ball Work Phone: [facility] DO Work Phone: Start: 09-07-2022 End: 09-07-2022 ambulatory Irving Ball Other [employer] Other Start: 09-07-2022 Telephone encounter Irving Canela [facility] Start: 09-02-2022 End: 09-02-2022 ambulatory Irving Ball Other [employer] Other Start: 09-02-2022 Office outpatient vi sit 15 minutes Irving Ball [facility] Start: 08-18-2022 Rx Renewal Irving E Bal l Work Phone: [facility] DO Work Phone: Start: 08-18-2022 End: 08-18-2022 ambulatory Irving Ball Other [employer] Other Start: 08-18-2022 Office outpatient vi sit 25 minutes Irving Ball [facility] Start: 07-15-2022 Office outpatient vi sit 15 minutes Irving Canela Work Phone: [facility] DO Work Phone: Start: 07-15-[address] Irving Canela Facility: Start: 07-12-2022 End: 07-12-2022 ambulatory DO Irving Canela Work Phone: [facility] Work Phone: Start: 07-12-2022 End: 07-12-2022 Patient encounter procedure DO Irving Canela Work Phone: [facility] Work Phone: Start: 06-15-2022 End: 06-15-[address] IRVING CANELA Facility:[facility] Start: 06-03-2022 Patient encounter procedure Irving Canela Work Phone: [facility] DO Work Phone: Start: 05-31-[address] [facility] Start: 05-13-2022 End: 05-14-2022 ambulatory RADHA RUBY . Facility:[facility] Start: 04-20-2022 End: 04-21-[address] IRVING CANELA Facility:[facility] Start: 04-13-2022 End: 04-13-[address] BEAU SIM . Facility:[facility] Start: 04-12-2022 Encounter for preprocedural laboratory examination DR BEAU SIM . [facility] Start: 04-10-2022 End: 04-11-[address] IRVING CANELA Facility:[facility] Start: 04-10-2022 End: 04-11-2022 Encounter for preprocedural laboratory examination DR IRVING CANELA Facility:[facility] Start: 03-25-2022 End: 03-26-[address] BEAU SIM . Facility:[facility] Start: 03-24-2022 End: 03-24-2022 ambulatory DO Irving Canela Work Phone: [facility] Work Phone: Start: 03-24-2022 End: 03-24-2022 Patient encounter procedure DO Irving Canela Work Phone: [facility] Start: 03-09-2022 End: 03-09-[address] BEAU SIM . Facility:[facility] Start: 02-26-2022 Patient encounter procedure Irving Canela Work Phone: [facility] DO Work Phone: Start: 02-09-2022 End: 02-10-[address] BEAU SIM . Facility:[facility] Start: 01-26-2022 End: 01-26-[address] BEAU SIM . Facility:[facility] Start: 01-19-2022 End: 01-20-[address] PHILL EUBANKS Facility:[facility] Start: 01-18-2022 Patient encounter procedure Irving Canela Work Phone: [facility] DO Work Phone: Start: 01-07-2022 End: 01-08-[address] PHILL EUBANKS Facility:[facility] Start: 01-05-2022 Office outpatient vi sit 40 minutes Irving Canela Work Phone: [facility] DO Work Phone: Start: 12-29-2021 End: 12-30-[address] PHILL EUBANKS Facility:[facility] Start: 12-14-2021 Office outpatient vi sit 25 minutes Irving Mariel [facility]ola Work Phone: [facility] DO Work Phone: Start: 11-09-2021 Adult health examination Irving Canela Other [facility] [employer] Other Start: 10-29-2021 Patient encounter procedure Irving Canela Work Phone: [facility] DO Work Phone: Start: 10-29-2021 Rx Renewal Irving Rg l Work Phone: [facility] [facility] DO Work Phone: Start: 10-16-2021 Patient encounter procedure Irving Floyd Ball Work Phone: [facility] DO Work Phone: Start: 10-07-2021 Office outpatient vi sit 25 minutes Irving E Ball Work Phone: [facility] DO Work Phone: Start: 10-07-2021 Patient encounter procedure Irving Floyd Ball Work Phone: [facility] DO Work Phone: Start: 09-25-2021 AUDIT Irving Floyd Bal l Work Phone: [facility] DO Work Phone: Start: 09-07-2021 Patient encounter procedure Irving Floyd Ball Work Phone: [facility] DO Work Phone: Start: 09-04-2021 Telephone encounter Irving Floyd Ball Work Phone: [facility] DO Work Phone: Start: 08-14-2021 AUDIT Irving Floyd Bal l Work Phone: [facility] DO Work Phone: Start: 07-06-2021 Rx Renewal Irving Floyd Bal l Work Phone: [facility] DO Work Phone: Start: 07-01-2021 Office outpatient vi sit 25 minutes Irving Floyd Ball Work Phone: [facility] DO Work Phone: Start: 06-24-2021 Patient encounter procedure Florence Aden FILM WRITER-LEAF TIER Work Phone: [facility] DO Work Phone: Start: 06-15-2018 End: 06-16-2018 Patient encounter procedure DEFAULT PHYSICIAN Facility:[facility] Start: 05-09-2018 End: 05-10-2018 Patient encounter procedure ANNA HOYT Facility:[facility] Procedures Date Procedure Procedure Detail Performing Clinician [...] Work Phone: Start: 04-21-2023 Esophagogastroduodenoscopy DO Irving Coppola all Work Phone: Start: 03-21-2023 Plain chest [...] of colon Irving Canela Other Depression screening Benjami n Rola Other Destructive procedure Benjam in E Ball Work Phone: History of placement of stent for coronary artery disease History of heart artery stent DO Irving Canela Work Phone: Percutaneous translu igor coronary angioplasty Irving E Ball Work Phone: Procedure on back Irving E Ball Work Phone: Procedure on prostate Benjam in E Ball Work Phone: Plan of Treatment Date Care Activity Detail Author Start: 09-02-2029 DTaP/Tdap/Td Vaccines (2 - Td or Tdap) DTaP/Tdap/Td Vaccines (2 - Td or Tdap) [facility] Start: 07-24-2024 End: 07-24-2024 Patient encounter procedure 07/24/2024 2:00 PM EST Office Visit [facility] [address] [facility] [address] [place] [id number] Brendon Baron, DO [address] [address] [place] [address] [facility] Start: 02-02-2024 Patient referral [facility] Work Phone: Start: 10-26-2023 [facility] Start: 09-14-2023 Patient referral [facility] Work Phone: Start: 07-20-2023 FUV, Provider: Brendon Baron, Status: Pen, Time: 10:00 AM FUV, Provider: Brendon Baron, Status: Pen, Time: 10:00 AM [facility] 250 DO Work Phone: Start: 04-21-2023 [facility] Start: 03-07-2023 FUV, Provider: Florence Norman, Status: Pen, Time: 9:00 AM FUV, Provider: Florence Norman, Status: Pen, Time: 9:00 AM [facility] 250 DO Work Phone: Start: 01-03-2023 FUV, Provider: Florence Norman, Status: Pen, Time: 11:00 AM FUV, Provider: Florence Norman, Status: Pen, Time: 11:00 AM [facility] Work Phone: Start: 12-08-2022 DENIA, Provider: LILLIANA MORALEZ PRIVATE EQUITY ANALYST 1,[id number], Status: Pen, Time: 11:15 AM DENIA, Provider: LILLIANA MORALEZ PRIVATE EQUITY ANALYST 1,[id number], Status: Pen, Time: 11:15 AM [facility] DO Work Phone: Start: 12-08-2022 EVENT BEBE, Provider: LILLIANA MORALEZ PRIVATE EQUITY ANALYST 1,[id number], Status: Pen, Time: 11:00 AM EVENT BEBE, Provider: LILLIANA MORALEZ PRIVATE EQUITY ANALYST 1,[id number], Status: Pen, Time: 11:00 AM [facility] DO Work Phone: Start: 10-29-2022 [facility] Start: 10-28-2022 Hospital admission [facility] Start: 10-28-2022 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 [facility] Start: 10-28-2022 [facility] Start: 10-28-2022 Plain chest X-ray XR chest 2V* [facility] Start: 10-28-2022 XR Chest 2 Views [facility] Start: 07-15-2022 FUV, Provider: Brendon Baron, Status: Pen, Time: 10:20 AM FUV, Provider: Brendon Baron, Status: Pen, Time: 10:20 AM [facility] DO Work Phone: Start: 01-05-2022 FUV, Provider: Brendon Baron, Status: Pen, Time: 1:30 PM FUV, Provider: Brendon Baron, Status: Pen, Time: 1:30 PM [facility] DO Work Phone: Start: 12-14-2021 FUV, Provider: Brendon Ceja, Status: Pen, Time: 8:30 AM FUV, Provider: Brendon Ceja, Status: Pen, Time: 8:30 AM [facility] DO Work Phone: Start: 11-20-2021 FUV, Provider: Brendon Ceja, Status: Pen, Time: 3:30 PM FUV, Provider: Brendon Ceja, Status: Pen, Time: 3:30 PM -[facility] DO Work Phone: Start: 10-15-2021 EKG, Provider: LILLIANA MORALEZ PRIVATE EQUITY ANALYST 1,[id number], Status: Pen, Time: 1:00 PM EKG, Provider: LILLIANA MORALEZ PRIVATE EQUITY ANALYST 1,[id number], Status: Pen, Time: 1:00 PM -[facility] DO Work Phone: Start: 10-07-2021 FUV, Provider: Florence Norman, Status: Pen, Time: 9:30 AM FUV, Provider: Florence Norman, Status: Pen, Time: 9:30 AM [facility] DO Work Phone: Start: 09-07-2021 HOLTER MON, Provider: LILLIANA MORALEZ PRIVATE EQUITY ANALYST 1,[id number], Status: Pen, Time: 9:30 AM HOLTER MON, Provider: LILLIANA MORALEZ PRIVATE EQUITY ANALYST 1,[id number], Status: Pen, Time: 9:30 AM -[facility] DO Work Phone: Start: 09-02-2021 FUV, Provider: Florence Norman, Status: Pen, Time: 9:00 AM FUV, Provider: Florence Norman, Status: Pen, Time: 9:00 AM -[facility] DO Work Phone: Start: 07-01-2021 FUV, Provider: Brendon Baron, Status: Pen, Time: 11:20 AM FUV, Provider: Brendon Baron, Status: Pen, Time: 11:20 AM -[facility] DO Work Phone: Start: 03-14-2018 Pneumococcal Vaccine: 65+ Years (2 - PCV) Pneumococcal Vaccine: 65+ Years (2 - PCV) [facility] Start: 10-14-1959 Diabetes mellitus screening Diabetes Screening [facility] Start: [address] Panel [facility] Start: 1940 Medicare Annual Wellness Visit Medicare Annual Wellness Visit (AWV) [facility] Start: 1941 Thyroid stimulating hormone measurement TSH Level [facility] Bacteria identified in Stool by Culture [facility] Calculated LDL cholesterol level [facility] Cholesterol.total/Ch oles terol in HDL [Mass Ratio] in Serum or Plasma [facility] Elastase.pancreatic [Mass/mass] in Stool [facility] Glucose measurement estimated from glycated hemoglobin [facility] Hemoglobin A1c/Hemoglobin.total in Blood [facility] Patient Education [facility] Work Phone: Patient referral [facility] Work Phone: VLDL cholesterol measurement [facility] XR Abdomen Single view [facility] Immunizations Immunization Date Immunization Notes Care Provider Fa [email or web address] 05-04-2023 influenza virus vaccine, unspecified formulation DO Irving Canela Work Phone: [facility] 05-04-2023 influenza, high dose seasonal, preservative-free Irving Canela Other [employer] [facility] [employer] Other 04-29-2022 COVID-19 Moderna (BIvalent) Irving Canela Other [facility] 04-29-2022 Moderna SARS-CoV-2 Vaccination Brendon Baron DO Work Phone: [facility] Work Phone: 04-15-2022 Fluad Quadrivalent 0 .5 ML Intramuscular Prefilled Syringe Irving Canela Work Phone: [facility] 250 DO Work Phone: 04-15-2022 influenza virus vaccine, split virus (incl. purified surface antigen) Irving Canela Other [facility] [employer] Other 04-15-2022 influenza virus vaccine, unspecified formulation DO Irving Canela Work Phone: [facility] 04-15-2022 influenza, injectabl e, quadrivalent, preservative free Brendon Baron DO Work Phone: [facility] Work Phone: 03-27-2022 influenza virus vaccine, unspecified formulation DO Irving Canela Work Phone: [facility] 03-27-2022 influenza, high dose seasonal, preservative-free Irving E Ball Work Phone: [facility] DO Work Phone: Comment on above: Series: 04-17-2021 Moderna COVID-19 Vaccine 100 MCG/0.5ML Intramuscular Suspension Irving E Ball Work Phone: [facility] 03-30-2021 influenza virus vaccine, split virus (incl. purified surface antigen) Irving Canela Other [facility] [employer] Other 03-30-2021 influenza virus vaccine, unspecified formulation DO Irving Canela Work Phone: [facility] 08-14-2020 Moderna COVID-19 Vaccine 100 MCG/0.5ML Intramuscular Suspension Irving E Rola Work Phone: [facility] 07-14-2020 Moderna COVID-19 Vaccine 100 MCG/0.5ML Intramuscular Suspension Irving E Rola Work Phone: [facility] 04-14-2020 influenza virus vaccine, split virus (incl. purified surface antigen) Irving Canela Other [facility] [employer] Other 04-14-2020 influenza virus vaccine, unspecified formulation DO Irving Canela Work Phone: [facility] 03-07-2019 influenza, high dose seasonal, preservative-free Brendon Baron DO Work Phone: [facility] Work Phone: 03-07-2019 Seasonal trivalent influenza vaccine, adjuvanted, preservative free Irving E Ball Work Phone: [facility] DO Work Phone: 06-24-2018 zoster vaccine recombinant Irving Canela Work Phone: [place] [address] DO Work Phone: 04-11-2018 influenza, injectabl e, quadrivalent, preservative free Irving E Rola Work Phone: [place] [address] DO Work Phone: 03-08-2018 influenza virus vaccine, split virus (incl. purified surface antigen) Irving Canela Other [facility] [employer] Other 03-08-2018 influenza virus vaccine, unspecified formulation DO Irving Canela Work Phone: [facility] 03-14-2017 influenza virus vaccine, split virus (incl. purified surface antigen) Irving Canela Other [facility] [employer] Other 03-14-2017 influenza virus vaccine, unspecified formulation DO Irving Canela Work Phone: [facility] 03-14-2017 influenza, high dose seasonal, preservative-free Irving Canela Work Phone: [place] [address] DO Work Phone: 03-14-2017 pneumococcal polysaccharide vaccine, 23 valent Irving Canela Work Phone: [facility] 03-12-2016 influenza virus vaccine, split virus (incl. purified surface antigen) Irving Canela Other [facility] [employer] Other 03-12-2016 influenza virus vaccine, unspecified formulation DO Irving Canela Work Phone: [facility] 03-12-2016 pneumococcal conjuga te vaccine, 13 valent Irving Canela Other [facility] 03-26-2015 influenza virus vaccine, split virus (incl. purified surface antigen) Irving Canela Other [facility] [employer] Other 03-26-2015 influenza virus vaccine, unspecified formulation DO Irving Canela Work Phone: [facility] 11-12-2014 zoster vaccine, live Benjami n Mariel Rola Work Phone: [facility] 04-03-2014 tetanus and diphther ia toxoids, adsorbed, preservative free, for adult use (5 Lf of tetanus toxoid and 2 Lf of diphtheria toxoid) Irving Rola Other [facility] Payers Date Payer Category Payer Medicare [id number] 2006 Medicare MEDICARE MEDICAR E PART A AND B [id number] 2006-Present [address] [place] [address] [id number] 1959 Medicare [id number] 1959 Private Health Insurance [id number] Self-pay [id number] 1941 Unknown [id number] 1941 Unknown [id number] 2.16.840.1.388527.3.579.2 .647 1940 Unknown [id number] 2.16.840.1.452913.3.579.2 .593 1940 Unknown [id number] 2.16.840.1.541749.3.579.2 .593 1940 Unknown [id number] 2.16.840.1.328860.3.579.2 .593 1940 Unknown [id number] 2.16.840.1.344142.3.579.2 .593 1940 Unknown [id number] 2.16.840.1.666701.3.579.2 .593 1940 Unknown [id number] 2.16.840.1.818770.3.579.2 .593 1940 Unknown [id number] 2.16.840.1.633265.3.579.2 .593 1941 Unknown [id number] 2.16.840.1.602057.3.579.2 .593 1941 Unknown [id number] 2.16.840.1.368442.3.579.2 .593 1941 Unknown [id number] 2.16.840.1.427674.3.579.2 .593 1941 Unknown [id number] 2.16.840.1.521335.3.579.2 .593 1941 Unknown [id number] 2.840.1.035347.3.579.2 .593 1941 Unknown [id number] 2.16.840.1.377720.3.579.2 .593 1941 Unknown [id number] 2.840.1.247331.3.579.2 .356 1941 Unknown [id number] 2.840.1.713091.3.579.2 .356 1941 Unknown [id number] 2.840.1.619474.3.579.2 .356 1941 Unknown [id number] 2.16.840.1.650882.3.579.2 .356 1941 Unknown [id number] 2.16.840.1.899880.3.579.2 .356 1941 Unknown [id number] 2.16.840.1.183120.3.579.2 .356 1941 Unknown [id number] 2.16.840.1.008955.3.579.2 .356 1941 Unknown [id number] 2.16.840.1.003448.3.579.2 .727 1941 Unknown [id number] 2.16.840.1.133688.3.579.2 .1259 1940 Unknown [id number] 2.16.840.1.856127.3.579.2 .9 1941 Unknown [id number] 2.16.840.1.580771.3.579.2 .125 1941 Unknown [id number] 2.16.840.1.442821.3.579.2 .9 1941 Unknown [id number] 2.16.840.1.457622.3.579.2 .124 1941 Unknown [id number] 2.16.840.1.018737.3.579.2 .124 1941 Unknown [id number] 2.16.840.1.808355.3.579.2 .1245 1941 Unknown [id number] 2.16.840.1.105203.3.579.2 .1245 1941 Unknown [id number] 2.16.840.1.646242.3.579.2 .1245 1940 Unknown [id number] 2.16.840.1.620008.3.579.2 .1244 1940 Unknown [id number] 2.16.840.1.621057.3.579.2 .1244 Medicare [id number] Private Health Insurance [facility] [id number] Unknown Unknown [id number] 2.16.840.1.474065.3.579.2 .593 Unknown [id number] 2.16.840.1.333533.3.579.2 .531 Unknown [id number] 2.16.840.1.756057.3.579.2 .531 Unknown [id number] 2.16.840.1.970366.3.579.2 .531 Unknown [id number] 2.16.840.1.557625.3.579.2 .531 Unknown [id number] 2.16.840.1.222396.3.579.2 .531 Social History Date Type Detail Facility Start: 07-25-2023 Consumes alcohol occasionally Consumes alcohol occasionally -[facility] DO Work Phone: Comment on above: 1-2 cups daily; quit 1995ish; Start: 03-10-2022 End: 10-29-2022 Tobacco smoking status [facility] Never smoked tobacco (finding) [facility] Start: 1940 Sex Assigned At Male F [facility] Start: 07-25-2023 Sex Assigned At N [facility] [employer] Other Start: 04-21-2023 End: 10-26-2023 Tobacco smoking status [facility] Ex-smoker (finding) [facility] History of tobacco use Current smoker [facility] Work Phone: History of tobacco use Cigarette Smoker [facility] Work Phone: Start: 07-25-2023 Alcohol intake Current drinke r of alcohol (finding) [facility] Work Phone: Start: 06-24-2023 Alcohol Comment occasional [facility] Work Phone: Start: 1940 Sex Assigned At Not on file [facility] Work Phone: Start: 07-15-2023 End: 07-25-2023 Exposure to SARS-CoV-2 (event) Not sure 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 male Chief Complaint Annual Exam 82-year-old gentleman returns for follow-up and is doing well he has no anginal complaints, heart failure or recurrent hospitalizations. He status post non-ST elevation DE May 2021, with a history of ASHD and prior three-vessel PCIin [place]. 1 of those events was for an inferior DE with revascularization of the RCA. Patient is [...] my name below, Janie Seay LPN , Scribe attest that this documentation has been prepared under the direction and in the presence of Cassandra Baron DO. Assessment/Plan 1. Bradycardia 2. H/O non-ST elevation myocardial infarction (NSTEMI) 3. Paroxysmal atrial fibrillation (CMS/HCC) 4. S/P PTCA (percutaneous transluminal coronary angioplasty) [facility] Work Phone: 1(950) 737-181901-29-2024 Instructions* Patient Instructions* Janie Delgado LPN - [...] follow up per routine 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 Tylenol as needed Apr, Strain of right rotator cuff capsule, initial encounter (ICD-10 - S46.011A) Ice, heat and ROM exercises. Tylenol, Lidocaine and Voltaren Gel. Call if pain increases. 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 Apr, Primary hypertension (ICD-10 - I10) This [...] minutes, 3-5 times weekly. Apr, Other Normal [facility] Other 10-[facility]* Author [facility] Authored February 02, 2024 11: 43am 83-year-old man referred to the GI clinic for evaluation of diarrhea. + Diarrhea x 1 year Colonoscopy in 03/2023 was normal. However colonic biopsies were not done Duodenal biopsies in 03/2023 was negative for celiac. Labs including TSH, ESR, CRP, fecal calprotectin HIV ab, fecal elastase and stool infectious workup were unremarkable -Will arrange for flex sig to get random colonic biopsies to assess for microscopic colitis [facility] Work Phone: [phone]) 301-631709-29-2023 Evaluation note* Encounter Date Diagnosis Assessment Notes Treatment Notes Treatment Clinical Notes Feb, Primary hypertension (ICD-10 - I10) [facility] Other 09-05-2023 Evaluation note* Encounter Date Diagnosis [...] procedure explained to patient; patient verbalizes understanding. 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 October, Primary hypertension (ICD-10 - I10) This [...] Recently decreased to 100mg qod. 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 Sep, Iron deficiency anem ia due to [...] Diet and exercise with continued statin therapy. [facility] Other 03-09-2023 Evaluation note* Encounter Date Diagnosis Assessment Notes Treatment Notes Treatment Clinical Notes Aug, Salpingitis of both eustachian tubes (ICD-10 - H68.003) Flonase bid x 5 days, than qd. Valsalva multiple times No improvement, may require referral to ENT Aug, Fecal urgency (ICD-10 - R15.2) Diet instructions. Restart Metamucil [facility] Other 02-22-2023 Evaluation note* Encounter Date Diagnosis Assessment Notes Treatment Notes Treatment Clinical Notes Jul, Paroxysmal atrial fibrillation (ICD-10 - I48.0) This patient is in NSR. This patient is anticoagulated to prevent thromboembolic events. 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 Jul, ASHD (arteriosclerot ic heart disease) (ICD-10 [...] (ICD-10 - K58.0) Diet instructions, add Metamucl [facility] Other 11-17-2022 NoteCONSULTATION CONSULTATION DATE: 05/13/2022 This is a [...] patient is in agreement to this. [id number] NoteCONSULTATION CONSULTATION DATE: 03/25/2022 HISTORY OF PRESENT [...] followed up in the clinic post procedure.[facility] [id number] NoteCONSULTATION CONSULTATION DATE: 02/09/2022 CHIEF COMPLAINT: Low [...] would like to proceed. CC: Irving Canela D.O.[facility]07-26-2022 NoteCONSULTATION CONSULTATION DATE: 01/19/2022 CHIEF COMPLAINT: Chronic [...] CC: Brendon Ceja M.D. Irving Canela D.O.[facility] [id number] NotePROCEDURE: XR HIP RT 2 3V W [...] authenticated by: LYNDA BYNUM Date: 2021-12-30 11:33[facility] Dublin[facility] noteNo assessment information [facility] Work Phone: Evaluation noteNo InformationNort [employer] Other Evaluation note* Diagnosis Onset Date Resolution Status Coronary artery disease acut e Dizziness acute Dyspnea acute Essential hypertension acute History of heart artery stent acute Hyperlipidemia acute Pre-syncope acute [facility] Work Phone: Evaluation note* Diagnosis Onset Date Resolution Status Change in bowel function acu te [facility] Work Phone: Evaluation note* Diagnosis Bradycardia Other specified cardiac dysrhythmias H/O non-ST elevation myocardial infarction (NSTEMI) Paroxysmal atrial fibrillation (CMS/HCC) Atrial fibrillation S/P PTCA (percutaneous transluminal coronary angioplasty) Postsurgical percutaneous transluminal coronary angioplasty status documented in this encounter [facility] Work Phone: Evaluation note* Diagnosis Onset Date Resolution Status ASHD (arteriosclerotic heart disease) acute Essential hypertension acute Gastroesophageal reflux dise ase with esophagitis without hemorrhage acute Iron deficiency anemia due to chronic blood loss acute Paroxysmal atrial fibrillation acute [facility] Work Phone: Evaluation note* Diagnosis [...] chronic blood loss acute Loose stools acute [facility] Work Phone: History and physical note Author Karol Sage [facility] October 28, 2022 11:21pm Note Date/Time October 28, 2022 11:01p m [facility] [address] [place] [address] Hospitalist H&P Signed Patient: Valentín Buckner MR#: [id number] : 1940 Acct:[id number] Age/Sex: 82 / M Adm Date: 3 Loc: Room: [address] [place] [address] Type: ADM INOo Attending Dr: Karol Sage [...] % (Auto) 24.4 % (.) 10/28/22 21:10 Manati % (Auto) 11.8 % (.) 10/28/22 21:10 Eos % (Auto) 0.9 % (.) 10/28/22 21:10 Baso % (Auto) 0.4 % (.) 10/28/22 21:10 Nucleat RBC Rel Count 0.0 /100 WBC (0-0.5) 10/28/22 21:10 Neut # (Auto) 5.6 x10E3/uL (1.8-7.7) 10/28/22 21:10 Lymph # (Auto) 2.2 x10E3/uL (1.00-4.8) 10/28/22 21:10 Manati # (Auto) 1.0 x10E3/uL (0.0-0.8) H 10/28/22 [...] MD Milly Documented By: Karol Sage MD 10/28/222158 Signed By: <Electronically signed by Karol Sage MD> 10/28/221 <Electronically signed by DO NANDINI Pena> 10/28/22 2319 [facility] Work Phone: History general Narrative - Reported* [...] History PTCA/STENT Surgical History PCI/STENT LAD 2016 Hospitalization History SEE SURGICAL HX [facility] Other Hiscjby general Narrative - Reported* Type Description Date [...] bx 03/2023 Hospitalization History SEE SURGICAL HX [facility] [employer] Other History of Present illness Narrative* The [...] medication regimen. He denies medication side effects. [facility] 250 DO Work Phone: History of Present [...] medication regimen. He denies medication side effects. [facility] 600 DO Work Phone: History of Present illness Narrative* Patient returns in follow-up of problems as noted. This first time I am seeing him. In the past he was under the care of Dr. Baron and Florence Aden for coronary disease with intervention. Recently he is having problems with paroxysmal atrial fibrillation and bradycardia. Ultimately he was switchedto amiodarone with baptism of sinus rhythm, today, and a better [...] in several months and make additional recommendations. [facility] DO Work Phone: History of Present illness Narrative* Patient returns in follow-up of problems as noted. This first time I am seeing him. In the past he was under the care of Dr. Baron and Florence Aden for coronary disease with intervention. Recently he is having problems with paroxysmal atrial fibrillation and bradycardia. Ultimately he was switchedto amiodarone with baptism of sinus rhythm, today, and a better [...] in several months and make additional recommendations. [employer] [facility] [employer] DO Work Phone: History of Present illness Narrative* The patient states he has been generally doing well since the last visit. Comorbid Illnesses: hypertension and hyperlipidemia. * Symptoms: denies chest pain at rest, denies exertional chest pain, denies dyspnea, stable fatigue, denies exercise intolerance, denies palpitations, denies edema, resolved dizziness and denies orthostatic dizziness. * Associated symptoms: no syncope. * Disease Monitoring: [facility] DO Work Phone: History of Present illness [...] medication regimen. He denies medication side effects. [facility] [employer] DO Work Phone: History of Present illness [...] medication regimen. He denies medication side effects. [facility] Center[facility]ram[facility] [employer] DO Work Phone: Hospital Discharge instructions Additional [...] if you have any problems. -Office number [phone] Work Phone: Hospital Discharge instructionsAmbulatory Orders* Breath test for SIBO Time Frame: 02/02/24, Location: None [facility] Work Phone: Reason for referral (narrative)* Reason Referral for Fe defi ciency anemia and GERD Diagnosis 1 Gastroesophageal ref lux disease with esophagitis without hemorrhage (K21.00) Referral Organization [facility] Rola Garcia C kymberly Referring Provider First Name Irving Referring Provider Last Name Rola Referring Provider Specialty Internal Me dicine Referred Organization [facility] Gastroenterolo gy Referred Provider Michael Bahena Referred Address [address],[place] [address] ,[place], [place],[address] Referred Provider Specialty Gastroentero logy Referral Priority Routine [facility] Other Summary Purpose Family History Unknown Family Member Name Dates Details Family [...] colon cancer Unknown Unknown Not Specified Unknown Relationship Condition Age at Onset Recorded Date/T gary brother Myocardial infarction Unknown brother Unknown Heart disease Unknown father Malignant neoplasm Unknown Family history of colon cancer Unknown Unknown mother Unknown Advance Directives Advance Directive Response Recorded Date/ Time Advance Directives No February 2:38pm Advance Directive Response Recorded Date/ Time Advance Directives No February 1:38pm Hospital Course Note MR#: [id number] 2[facility] Pt. Name: Valentín Buckner Admitted: 05/09/2018 Discharged: 05/10/2018 Date of : 1940 Physician: Anna Hoyt MD DISCHARGE SUMMARYPRCLEBURNE [facility] PHYSICIAN: Dr. Irving Canela.PRINCIPAL PROBLEM:1. Chest pain, rule out acute coronary syndrome.2. History of CAD status post stents.3. Hypertension, well controlled.4. Unspecified dyslipidemia.CONSULTANTS: Cardiology.HOSPITAL COURSE: This is a 77-year-old male, who was seen at [facility] for concern for unstable angina. The patient [...] typical chest pain symptoms aswell. Workup at [facility] revealed an EKG that was normal andnormal troponin. However, given the patient's cardiac history, they feltthat i (more content not included)... Chief Complaint * VALENTÍN BUCKNER is being seen for follow-up of a hospitalization for. * Patient is a 80-year-old gentleman returns from recent small non-ST elevation DE associated with small branch disease of the [...] BRBPR no melena, no weakness/dizziness * VALENTÍN SITA is being seen for a 1 month [...] Ceja MD for review.Amiodarone Order sent to [facility] for testing due in October VALENTÍN BUCKNER [...] has had a previous small non-ST elevation DE in May 2021 associated with a small [...] in 6 months Amiodarone Order sent to [facility] for testing due in FebruaryAmiodarone Order sent to [facility] for testing due in July 19Amiodarone Order sent to [facility] for testing due in September* Hospital f/u: 'doing ok' * VALENTÍN BUCKNER is being seen for follow-up of a hospitalization for dizziness. * Patient presents to the office ambulatory steady gait, is accompanied by his . Last evaluated in clinic Dr. Baron June 2022. At that time dose of amiodarone reduced 100 mg daily. * October 2022 presented to [facility] due to dizziness. Seen in consultation by [...] atrial fibrillation. We will proceed with 14-day [employer] At this time amiodarone has been reduced greater than 30 days. He otherwise continues to tolerate anticoagulation without any bleeding diatheses. * Secondary prevention has been reviewed. Patient is here today for a BP check ordered by Florenec Mora NP due to hypertenstion. Florence Mora [...] regarding bradycardia and he completed a 14-day [employer] Results reviewed including no evidence of high-grade [...] Medicare annual wellness visit, subsequent Chief Complaint Medicare Wellness Unknown loose stools/fecal incontinence Reason for Visit ASHD (arteriosclerot ic heart disease) Essential hypertension Gastroesophageal reflux disease with esophagitis without hemorrhage Iron deficiency anemia due to chronic blood loss Irritable bowel syndrome with diarrhea Orchitis of both testicles Paroxysmal atrial fibrillation Medicare annual wellness visit, subsequent Reason for Referral Specialty Diagnoses / Procedures Referred By aSnam riley Referred To Contact Diagnoses Bradycardia Procedures ECG 12 Lead Brendon Baron DO [address] [place] [address], [address] [address] Referral ID Status Reason Start Date Expiration Date V isits Requested Visits Authorized [id number] Authorized 07/25/2023 07/24/2024 1 1 Specialty Diagnoses / Procedures Referred By Sanam riley Referred To Contact Cardiology Diagnoses Bradycardia H/O non-ST elevation myocardial infarction (NSTEMI) S/P PTCA (percutaneous transluminal coronary angioplasty) Procedures Follow Up In Cardiology Brendon Baron DO [address] [place] [address] 2, [address] [address] Brendon Baron DO [address] [place] [address] 2, [address] [address] Referral ID Status Reason Start Date Expiration Date V isits Requested Visits Authorized [id number] Authorized 07/25/2023 07/24/2024 1 1 Additional Source Comments (unrecognized sect ion and content) No Status Records FoundNo Status Records FoundNo Status Records FoundNo Status Records FoundNo Status Records FoundNo Status Records FoundNo Status Records FoundNo Status Records FoundNo Status Records Found INFORMATION SOURCE (unrecogn ized section and content) DATE CREATED AUTHOR 06/18/2018 [facility] DATE CREATED AUTHOR AUTHOR'S ORGANIZ ATION 10/24/2022 [facility] DATE CREATED AUTHOR AUTHOR'S ORGANIZ ATION 03/31/2023 [facility] DATE CREATED AUTHOR AUTHOR'S ORGANIZ ATION 04/01/2023 [employer] DATE CREATED AUTHOR AUTHOR'S ORGANIZ ATION 10/18/2023 [facility] DATE CREATED AUTHOR AUTHOR'S ORGANIZ ATION 11/16/2023 [facility] EPIC DATE CREATED AUTHOR AUTHOR'S ORGANIZ ATION 11/23/2023 [facility] DATE CREATED AUTHOR AUTHOR'S ORGANIZ ATION 01/09/2024 [facility] DATE CREATED AUTHOR AUTHOR'S ORGANIZ ATION 01/26/2024 [facility] Reason for Visit (unrecogniz ed section and content) Reason Comments Annual Exam Care Teams (unrecognized sec tion and content) Team Status: Active Member Role Status Dates NON STAFF Primary Care Provider Active Team Status: Inactive Member Role Status [...] Provider Active St art: November 22, 2023 Team Status: Active Member Role Status Dates Jalen Hutchison MD Attending Provider Active St art: December 16, 2023 Team Status: Inactive Member Role Status Dates Colleen Ochoa MD Attending Provider Active Start: February 02, 2024 End: February 02, 2024 NON STAFF Primary Care Provider Active Start: February 02, 2024 End: February 02, 2024 Team Status: Active Member Role Status Dates [...] Care Provider Active Start: September 01, 2023 W Murali Baron DO Other Provider Active Start : [...] Active Markell Garza MD Attending Provider Active Combiner Relationship Specialty Start Date End Date Irving [...] Provider Active St art: November 22, 2023 Team Status: Active Member Role Status Dates NON STAFF Primary Care Provider Active Team Status: Active Member Role Status Dates Jalen Hutchison MD Attending Provider Active St art: December 16, 2023 Team Status: Inactive Member Role Status Dates Colleen Ochoa MD Attending Provider Active Start: February 02, 2024 End: February 02, 2024 NON STAFF Primary Care Provider Active Start: February 02, 2024 End: February 02, 2024 Goals (unrecognized section and content) Goals may [...] BE BASED ON THE PRIMARY CLINICAL RECORDS. [facility] [employer] [facility]. provides no warranty or guarantee of the accuracy or completeness of information in this document.
== END 2024-02-03 13:16 | disposition home or self-care (01) ==
LOC: RAD 13:17
PROVIDERS: PCP Internal Medicine; Visit Provider Internal Medicine
DX: R19.5 Other fecal abnormalities (principal); R15.2 Fecal urgency
CPT/HCPCS: 74018

== ENCOUNTER 2024-04-17 07:36 | Outpatient (RCR) | payer MEDICARE, OTHER, SELFPAY ==
[2024-04-11 11:03] LABS: Basophils Percent Auto 0.3 % (0.2-2.0); Eosinophils Absolute Auto 0.1 10^3/uL (0.0-0.7); Hematocrit 46.9 % (42.0-54.0); Hemoglobin 15.5 g/dL (14.0-18.0); Immature Granulocytes Abs Auto 0.02 10^3/uL (0.00-0.03); Immature Granulocytes Pct Auto 0.2 % (0.0-0.5); Lymphocytes Percent Auto 19.6 % (20.5-60.0); Mean Corpuscular Volume 96.9 fL (80.0-94.0); Mean Platelet Volume 9.9 fL (9.5-13.5); Monocytes Absolute Auto 1.1 10^3/uL (0.3-0.8); Monocytes Percent Auto 11.1 % (1.7-12.0); Neutrophils Absolute Auto 6.9 10^3/uL (1.4-6.5); Neutrophils Percent Auto 67.8 % (43.0-75.0); Platelet Count 188 10^3/uL (150-450); Red Blood Count 4.84 10^6/uL (4.70-6.10); Red Cell Distribution Width 13.4 % (11.0-15.0); White Blood Count 10.2 10^3/uL (4.0-11.0)
[2024-04-11 11:37] LABS: Percent Iron Saturation 26.9 %
== END 2024-04-26 23:59 | disposition home or self-care (01) ==
LOC: HEMC 07:36
PROVIDERS: PCP Internal Medicine; Visit Provider Internal Medicine Hematology & Oncology
DX: D50.9 Iron deficiency anemia, unspecified (principal); K90.9 Intestinal malabsorption, unspecified; Z85.46 Personal history of malignant neoplasm of prostate; Z79.01 Long term (current) use of anticoagulants; Z90.79 Acquired absence of other genital organ(s); Z87.891 Personal history of nicotine dependence; D64.9 Anemia, unspecified; R19.7 Diarrhea, unspecified; K21.9 Gastro-esophageal reflux disease without esophagitis
CPT/HCPCS: 36415; 82728; 83540; 83550; 85025; G0463

== ENCOUNTER 2024-07-26 09:50 | Outpatient (OUT) | payer MEDICARE, OTHER, SELFPAY ==
--- OUTSIDE RECORDS SUMMARY | 2024-07-26 10:03 | XMS_ITS | CCD ---
Author Organization [facility] CliniSypr Care Team Providers Care Operations Representative Name Role Phone AHMED, ANNA Unavailable Unavailable AHMED, ANNA Unavailable Unavailable ROLA, IRVING Unavailable Unavailable AHMED, ANNA Unavailable Unavailable PHYSICIAN, DEFAULT Unavailable Unavailable PHYSICIAN, DEFAULT Unavailable Unavailable ROLA, IRVING Unavailable Unavailable Rola, Irving E Unavailable Unavailable Unavailable Rola, DO Villatoro Primary Care Provider DO Alfred Baron Attending Provider Rola, DO Villatoro Primary Care Provider DO Alfred Baron Attending Provider Irving Canela Unavailable Rola, DO Villatoro Primary Care Provider DO Alfred Baron Attending Provider ROLA, DR VILLATORO Primary Care Unavailable MISC, DR DUMONT Attending Unavailable MISC, DR DUMONT Admitting Unavailable MISC, DR DUMONT Consulting Unavailable SIM ., DR BEAU Ferrer Attending Unavailable BALL, DR VILLATORO Primary Care Unavailable SIM ., DR BEAU Ferrer Admitting Unavailable RUBY .RADHA Consulting Unavailable RUBY .RADHA Consulting Unavailable ROLA, DR VILLATORO Primary Care [...] SIM ., DR BEAU Ferrer Consulting Unavailable GLADISJARRED Singer Consulting Unavailable SIM ., DR BEAU Ferrer [...] Unavailable BALL, DR VILLATORO Primary Care Unavailable GIPSY, DR KIKA Carranza Consulting Unavailable EUBANKS, DR [...] BALL, DR VILLATORO Primary Care Unavailable MD Pedro Corbett Jr Emergency Provider MD Karol Sage Admit Provider [phone] MD Karol Sage Attending Provider Markell Garza Unavailable DO Irving Canela Primary Care Provider DO Alfred Baron Attending Provider [phone] Dr. Irving Canela Primary Care Hayden Baron, [...] Care Hayden Aden, Ms. Florence Vergara Referring Beatrisvai julius Canela, Dr. Irving Dumont Primary Care Hayden Aden, Ms. Florence Vergara Attending Hayden Aden, Ms. Florence Vergara Referring Unavai julius Canela, Dr. Irving Dumont Primary Care Hayden Aden, Ms. Florence Vergara Attending Hayden Aden, Ms. Florence Vergara Referring Beatrisvai julius Canela, Dr. Irving Dumont Primary Care Hayden Aden, Ms. Florence Vergara Attending MD Markell Rosales Attending Provider [phone] Irving Canela DO Primary Care Provider DO Irving Canela Primary Care Provider [phone] DO Alfred Baron Attending Provider [phone] MD Colleen Ochoa Attending Provider MD Miriam Juarez Attending Provider Miriam Juarez Admitting Unavailable Miriam Juarez Attending Unavailable Alfred Baron Attending Unavailable Irving Canela Primary Care Unavailable Alfred Baron Admitting Unavailable Alfred Baron Admitting Unavailable Alfred Baron Attending Unavailable Irving Canela Primary Care Unavailable Irving Canela Primary Care Unavailable Asaad, Imad Admitting Unavailable Asaad, Imad Attending Unavailable Irving Canela Primary Care Unavailable Markell Garza Admitting UnavailMarkell Crook Attending UnavailBRENDON Pantoja Referring Unavailable IRVING CANELA Primary Care Unavailable BRENDON BARON Referring Unavailable IRVING CANELA Primary Care Unavailable BRENDON BARON Attending Unavailable IRVING CANELA Primary Care Unavailable BRENDON BARON Attending Unavailable IRVING CANELA Primary Care Unavailable IRVING CANELA Primary Care Physician Bethel CHAIREZ Attending Unavailable Irving Canela DO Primary Care Provider Unavailable Primary Care Provider UnavailIrving Medellin DO Primary Care Provider Irving Canela DO Primary Care Provider Irving Canela MD Primary Care Provider PEDRO WAGNER Attending Unavailable IRVING FONSECA Attending Unavailable PEDRO WAGNER Referring Unavailable CHELSEY, BASHIR Buchanan Attending Unavailable PETROMAN, BASHIR Buchanan Attending Unavailable PETROMAN, BASHIR A Attending Unavailable PETROMAN, BASHIR A Attending Unavailable Allergies Allergy Classification Reported Allergen(s) Allergy Type Date of Onset Reaction(s) Facility Platelet Inhibitors (P2Y12, not including aspirin) (1 source) clopidogrel Drug Allergy 4 [facility] Repository (3 sources) clopidogrel; Translations: [Plavix] Drug Allergy 6 [facility] Rep[facility] (1 source) Ticagrelor Drug Allergy 6 [facility] (20 sources) clopidogrel; Translations: [Plavix] Drug Allergy 7 Rash, Eruption of skin (disorder), Hives, Other [facility] (8 sources) clopidogrel; Translations: [CLOPIDOGREL] Drug Allergy 1 Swelling [facility] (1 source) prasugrel Drug Allergy [facility] Repository (11 sources) prednisoLONE Drug Allergy 3 [facility] Medications Current Medications Medication Drug Class(es) Dates Sig (Normalized) Sig (Original) ALPRAZolam 0.25 mg oral tablet (12 sources) Benzodiazepine Start: 03-20-2019 take 4 tablets by mouth three times daily alprazolam 0.25 mg Tab mg tab(s), Oral, TID, Refills(s) 0 Start Date: 03/20/19 Status: Ordered take 1 tablet by mouth at bedtim e ALPRAZolam (Xanax) 0.25 MG tablet TAKE 1 TALBET BY MOUTH AT BEDTIME Active amiodarone hydrochloride 200 mg oral tablet (20 sources) Antiarrhythmic Start: 04-21-2023 Amiodarone 100 mg tablet Active 50 MG PO [id number] 21, 2023 7:09am Start: 04-21-2023 Amiodarone Act andrew 50 MG PO [email or web address] 21, 2023 8:09am Start: 10-29-2022 End: 10-29-2022 Amiodarone 200 mg tablet Discontinued 0 .ROUTE .COMPLEX October 28, 2022 11:00pm October 29, 2022 1:17pm 100 mg orally Start: 10-29-2022 End: 04-21-2023 Amiodarone 100 mg Tablet Discontinued 100 MG PO [email or web address] 30 October 28, 2022 11:00pm April 21, 2023 7:09am Start: 10-29-2022 End: 10-29-2022 Amiodarone Discontinued 0 .R OUTE .COMPLEX October 29, 2022 12:00am October 29, 2022 2:17pm 100 mg orally Start: 10-15-2022 take 1 tablet by tavo th once daily Amiodarone HCl - 100 MG Oral Tablet TAKE 1 TABLET DAILY. Quantity: 90 Refills: 1 Ordered: 15-Oct-2022 Brendon Baron DO Start : 15-Oct-2022 Active Start: 01-05-2022 take 0.5 tablet by m outh three times weekly, then take 1 tablet by mouth once amiodarone (Pacerone) 200 mg tablet Indications: Paroxysmal atrial fibrillation (Multi) Take 0.5 tablets (100 mg) by mouth 3 times a week. Take one tablet by mouth every Mon, Wed, Tue 40 tablet 1 08/29/2023 Active Start: 01-05-2022 amiodarone (Pa cerone) 200 mg tablet Take 1 tablet (200 mg) by mouth. Take one tablet by mouth every Mon, Wed, Fri 0 01/05/2022 Active Start: 10-07-2021 take 1 tablet by tavo [...] Dihydropyridine Calcium Channel Mulugeta Start: 09-13-2023 take 1 tablet by mouth once daily amLODIPine (Norvasc) 2.5 mg tablet Indications: Essential (primary) hypertension TAKE 1 TABLET BY MOUTH EVERY DAY DIRECTED 90 tablet 3 12/23/2023 Active Start: 10-26-2022 take 1 tablet by [...] DAY Quantity: 90 Refills: 3 Ordered: 02-Sep-2021 Jai Aden APRN-Florence BENSON Start : 02-Sep-2021 Active Start: 03-20-2019 End: 06-13-2021 take 1 tablet by mouth once daily Amlodipine 10 mg Tab let Discontinued 10 MG PO Daily June 12, 2021 12:00am June 13, 2021 11:21am apixaban 5 mg oral tablet (20 sources) Factor Xa Inhibitor Start: 09-25-2021 take 1 tablet by mouth twice daily apixaban (Eliquis) 5 mg tablet Take 1 tablet (5 mg) by mouth 2 times a day. 09/25/2021 Active Apixaban (ELIQUI S PO) Take by mouth Active aspirin 81 mg delayed release oral tablet (20 sources) Platelet Aggregation Inhibitor, Nonsteroidal Anti-inflammatory Drug Start: 01-05-2022 aspirin 81 mg EC tablet Take 1 tablet (81 mg) by mouth. Take one tablet by mouth every Mon, Tue, Tue01/05/2022 Active Start: 06-12-2021 End: 09-13-2023 take 1 tablet by mouth three times weekly Aspirin 81 mg Tablet Discontinued 81 MG PO 3 Times a week June 12, 2021 12:00am September 13, 2023 10:53am Start: 03-20-2019 take 81 mg by mouth once daily Aspirin Active 81 MG PO Daily June 12, 2021 1:00am take 1 tablet by tavo th once daily aspirin 81 MG chewable tablet Chew 1 tablet every day by oral route. Active take 1 tablet by tavo th once daily Aspirin EC 81 MG Oral Tablet Delayed Release TAKE 1 TABLET DAILY. Quantity: 90 Refills: 3 Ordered: 02-Sep-2021 DO Active atorvastatin 40 mg oral tablet (20 sources) HMG-CoA Reductase Inhibitor Start: 10-29-2022 Atorvastatin 80 mg tablet Active 40 MG PO Daily at bedtime October 28, 2022 11:21pm Start: 10-29-2022 take 40 mg by mouth once daily at bedtime Atorvastatin Active 40 MG PO Daily at bedtime October 29, 2022 12:21am Start: 01-05-2022 End: 07-24-2024 take 1 tablet by mouth once daily at bedtime atorvastatin (Lipitor) 40 mg tablet Indications: H/O non-ST elevation myocardial infarction (NSTEMI) Take 1 tablet (40 mg) by mouth once daily at bedtime. 90 tablet 3 07/25/2023 Active Start: 06-13-2021 End: 10-29-2022 take 1 tablet by mouth once daily Atorvastatin 80 mg tablet Discontinued 80 MG PO Daily June 13, 2021 12:00am October 28, 2022 11:22pm Start: 07-06-2019 End: 06-13-2021 take 1 tablet by mouth once daily Atorvastatin 20 mg Tablet Discontinued 20 MG PO Daily June 12, 2021 12:00am June 13, 2021 11:21am take 1 tablet by tavo th in the morning atorvastatin (Lipitor) 10 MG tablet Take 1 tablet by mouth in the morning. Active 120 actuat budesonide 0.08 mg/actuat / formoterol fumarate 0.0045 mg/actuat metered dose inhaler (1 source) Corticosteroid, beta2-Adrenergic Agonist Start: 07-10-2024 take 1 puff(s) by inhalation every twelve hours Budesonide-Formoterol 80-4.5 mcg/actuation HFA aerosol inhaler Active 2 PUFF INHALATION Every 12 hours 10.2 July 10, 2024 12:00am cephalexin 500 mg oral capsule (5 sources) Cephalosporin Antibacterial Start: 07-19-2024 take 1 capsule by mouth twice daily cephalexin (Keflex) 500 MG capsule Indications: Basal cell carcinoma of skin of scalp and neck Take 1 capsule, by mouth, bid, 10 days 20 capsule 07/19/2024 Active codeine phosphate 2 mg/ml / guaiFENesin 20 mg/ml oral solution (11 sources) Opioid Agonist guaiFENesin-code ine (Robitussin-AC) 100-10 MG/5ML syrup Active doxycycline hyclate 100 mg oral capsule (3 sources) Tetracycline-class Drug Start: 05-17-2024 End: 07-10-2024 take 1 capsule by mouth twice daily Doxycycline Hyclate 100 mg capsule Active 100 MG PO Twice daily 14 July 10, 2024 2:38pm hydrocortisone acetate 10 mg/ml topical cream (10 sources) Corticosteroid Start: 02-14-2024 Hydrocortisone Acetate 1 % cream Indications: Drug-induced photosensitivity Apply thin layer to affected areas, twice a day as needed for flares, 30 day supply 28.4 g 11 02/14/2024 Active Inhalational Spacing Device (Aerochamber Mini) spacer (1 source) Start: 07-10-2024 Inhalational Spacing Device (Aerochamber Mini) spacer Active 0 .ROUTE .MEDSUPPLY July 10, 2024 12:00am Use with inhaler 24 hr isosorbide mononitrate 30 mg extended release oral tablet (20 sources) Nitrate Vasodilator Start: 03-26-2024 take 1 tablet by mouth once daily Isosorbide Mononitrate 30 mg tablet extended release 24 hr Active 0 .ROUTE .COMPLEX 90 March 26, 2024 11:37am TAKE 1 TABLET BY MOUTH EVERY DAY Start: 06-12-2021 End: 07-24-2024 take 1 tablet by mouth once daily isosorbide mononitrate ER (Imdur) 30 mg 24 hr tablet Indications: H/O non-ST elevation myocardial infarction (NSTEMI) , Paroxysmal atrial fibrillation (Multi) , S/P PTCA (percutaneous transluminal coronary angioplasty) Take 1 tablet (30 mg) by mouth once daily. 90 tablet 3 07/25/2023 Active take 1 tablet by tavo th every twenty-four hours in the morning isosorbide mononitrate ER (Imdur) 30 MG 24 hr tablet Take 1 tablet by mouth in the morning. Active Nitro 0.4 mg Tab (1 source) Start: 07-06-2019 Nitro 0.4 mg T ab = 1 tab(s), SubLingual, q5min, PRN Chest pain Start Date: 07/06/19 Status: Ordered nitroglycerin 0.4 mg sublingual tablet (20 sources) Nitrate Vasodilator Start: 09-13-2023 Nitroglyce rin 0.4 mg tablet, sublingual Active 0.4 MG SUBLINGUAL .COMPLEX as needed for chest pain September 12, 2023 11:00pm 0.4 mg sublingually PRN; do not exceed 3 doses per episode Start: 11-29-2022 Nitroglycerin 0.4 MG Sublingual Tablet Sublingual DISSOLVE 1 TABLET UNDER THE TONGUE NEEDED FOR CHEST PAIN. Quantity: 25 Refills: 3 Ordered: 29-Nov-2022 Jai Aden CREDIT COORDINATORVirgilioTRAFFIC I MANAGERFlorence Start : 29-Nov-2022 Active nitroglycerin (N itrostat) 0.4 MG SL tablet DISSOLVE 1 TABLET UNDER THE TONGUE NEEDED FOR CHEST PAIN Active apply 0.4 mg transde rmal route every hour in the morning nitroglycerin (Nitrodur) 0.4 MG/HR patch Place 1 patch on the skin in the morning. Active pantoprazole 40 mg delayed release oral tablet (20 sources) Proton Pump Inhibitor Start: 04-21-2023 take 1 tablet by mouth once daily Pantoprazole 40 mg tablet,delayed release (DR/EC) Active 40 MG PO Daily April 20, 2023 11:00pm polysaccharide iron complex 150 mg oral capsule (20 sources) Start: 09-09-2022 take 1 capsule by mouth once daily iron polysaccharides (Nu-Iron,Niferex) 150 MG capsule TAKE 1 CAPSULE BY MOUTH EVERY DAY FOR 30 DAYS 09/09/2022 Active prasugrel 10 mg oral tablet (11 sources) P2Y12 Platelet Inhibitor prasugrel (Effient) 10 MG tablet as directed Orally Active rifAXIMin 550 mg oral tablet (6 sources) Rifamycin Antibacterial Start: 05-01-2024 End: 05-07-2024 take 1 tablet by mouth three times daily Rifaximin 550 mg tablet Active 550 MG PO Three times daily May 07, 2024 9:37am traZODone hydrochloride 50 mg oral tablet (20 sources) Serotonin Reuptake Inhibitor Start: 11-24-2023 take 1 tablet by mouth once daily at bedtime traZODone (Desyrel) 50 mg tablet Take 1 tablet (50 mg) by mouth once daily at bedtime. 11/24/2023 Active Start: 08-26-2023 End: 10-26-2023 take 1 tablet by mouth once daily at bedtime Trazodone 50 mg tablet Discontinued 50 MG PO Daily at bedtime August 26, 2023 5:03pm October 26, 2023 7:34am Start: 08-04-2023 take 0.5-1 tablets b y mouth once at bedtime traZODone HCl 50 MG 1/2 - 1 tablet Orally q HS for 30 days Jul, Active zinc gluconate 50 mg oral tablet (20 sources) take 1 tablet by mouth once daily zinc gluconate 50 mg tablet Take 1 tablet (50 mg) by mouth once daily. Active zolpidem tartrate 5 mg oral tablet (3 sources) gamma-Aminobutyric Acid-ergic Agonist Start: 05-17-2024 zolpidem (Ambien) 5 mg tablet 1 tablet (5 mg) once daily at bedtime. 05/17/2024 Active Completed/Discontinued Medications Medication Drug Class(es) Dates Sig (Normalized) Sig (Original) amitriptyline hydrochloride 10 mg oral tablet (20 sources) Tricyclic Antidepressant Start: 09-13-2023 End: 10-17-2023 take 1 tablet by mouth once daily at bedtime Amitriptyline 10 mg tablet Discontinued 10 MG PO Daily at bedtime September 12, 2023 11:00pm October 17, 2023 1:29pm cholecalciferol 0.05 mg oral capsule (20 sources) Vitamin D Start: 06-12-2021 End: 09-13-2023 take 1 capsule by mouth once daily Cholecalciferol (Vitamin D3) (Vitamin D3) 50 mcg (2,000 unit) Capsule Discontinued 50 MCG PO Daily June 12, 2021 12:00am September 13, 2023 10:53am clopidogrel 75 mg oral tablet (10 sources) P2Y12 Platelet Inhibitor End: 07-22-2024 take 1 tablet by mouth once daily clopidogrel (Plavix) 75 MG tablet Take 1 tablet every day by oral route for 90 days. 07/22/2024 Discontinued fluorouracil 50 mg/ml topical cream (20 sources) Nucleoside Metabolic Inhibitor Start: 06-14-2023 End: 07-22-2024 fluorouracil (Efudex) 5 % cream Indications: Actinic keratosis Apply to directed areas on the scalp twice a day x 14 days. Dispense 30 day supply but only use for 14 days. 40 g 06/21/2023 07/22/2024 Discontinued loratadine 10 mg oral tablet (20 sources) Start: 12-15-2023 End: 02-02-2024 take 1 tablet by mouth once daily Loratadine 10 mg tablet Discontinued 0 .ROUTE .COMPLEX 90 December 15, 2023 7:40am February 02, 2024 10:26am TAKE 1 TABLET BY MOUTH EVERY DAY Start: 12-15-2023 End: 02-02-2024 take 1 tablet by mouth once daily Loratadine Discontinued 0 .ROUTE .COMPLEX 90 December 15, 2023 8:40am February 02, 2024 11:26am TAKE 1 TABLET BY MOUTH EVERY DAY Start: 03-20-2019 End: 12-15-2023 take 1 tablet by mouth in the morning loratadine (Claritin) 10 MG tablet Take 10 mg by mouth in the morning. 12/06/2022 Active take 1 tablet by tavo th once daily loratadine 10 mg capsule Take 1 tablet by mouth once daily. Active 24 hr metoprolol succinate 50 mg extended release oral tablet (18 sources) beta-Adrenergic Mulugeta Start: 06-13-2021 End: 10-29-2022 take 1 tablet by mouth once daily Metoprolol Succinate 50 mg tablet extended release 24 hr Discontinued 50 MG PO Daily June 13, 2021 12:00am October 28, 2022 11:18pm oseltamivir 75 mg oral capsule (10 sources) Neuraminidase Inhibitor End: 07-22-2024 Tamiflu 75 MG capsule 07/22/2024 Discontinued sulfamethoxazole 800 mg / trimethoprim 160 mg oral tablet (7 sources) Dihydrofolate Reductase Inhibitor Antibacterial, Sulfonamide Antimicrobial Start: 11-15-2023 End: 02-02-2024 take 1 tablet by mouth twice daily Sulfamethoxazole- Trimethoprim 800-160 mg tablet Discontinued 1 TAB PO Twice daily 15 04November 14, 2023 11:00pm February 02, 2024 10:26am Tc-99m tetrofosmin (Myoview) injection 10 millicurie (1 source) Start: 01-02-2024 End: 01-02-2024 10 millicurie, intravenous, Once in imaging, Starting on Tue01/02/24 at 1226, For 1 dose, Administer 45 to 90 minutes prior to imaging unless otherwise indicated. Tc-99m tetrofosmin (Myoview) injection 30 millicurie (1 source) Start: 01-02-2024 End: 01-02-2024 30 millicurie, intravenous, Once in imaging, Starting on Tue01/02/24 at 1345, For 1 dose, Administer 45 to 90 minutes prior to imaging unless otherwise indicated. ticagrelor 90 mg oral tablet (20 sources) Start: 06-13-2021 End: 10-29-2022 take 1 tablet by mouth twice daily Ticagrelor (Brilinta) 90 mg tablet Discontinued 90 MG PO Twice daily 60 June 13, 2021 12:00am October 28, 2022 11:18pm Zinc (16 sources) Start: 06-12-2021 End: 04-21-2023 take 1 capsule by mouth once daily Zinc 50 mg Capsule Discontinued 50 MG PO Daily June 12, 2021 12:00am April 21, 2023 7:09am Start: 06-12-2021 End: 04-21-2023 take 50 mg [...] Date Documented Da te Episodic/Chronic Abdominal pain (18 sources) Right upper quadrant pain; Translations: [Right upper quadrant pain] Onset: 6 10-17-2023 Episodic Acute bronchitis (8 sources) Acute bronchitis; Translations: [Acute bronchitis due to other specified organisms] 05-17-2024 Episodic Anxiety disorders (4 sources) Generalized anxiety disorder; Translations: [Generalized anxiety disorder] Onset: 8 Chronic Attention-deficit, conduct, and disruptive behavior disorders (4 sources) Attention deficit hyperactivity disorder; Translations: [Attention-deficit hyperactivity disorder, unspecified type] Chronic Cancer of prostate (4 sources) Malignant tumor of prostate; Translations: [Malignant neoplasm of prostate] Onset: 6 Chronic Cardiac dysrhythmias (20 sources) Paroxysmal atrial fibrillation; Translations: [Atrial fibrillation] Onset: 3 Resolved: 5 Chronic Cardiac dysrhythmias (20 sources) Bradycardia; Translations: [Other specified cardiac dysrhythmias] Onset: 3 Resolved: 5 Episodic Chronic obstructive pulmonary disease and bronchiectasis (3 sources) Chronic bronchitis; Translations: [Unspecified chronic bronchitis] 07-10-2024 Chronic Conditions associated with dizziness or vertigo (8 sources) Dizziness; Translations: [Dizziness and giddiness] 10-28-2022 Episodic Coronary atherosclerosis and other heart disease (20 sources) Unstable angina; Translations: [Old myocardial infarction] Onset: 5 Resolved: 5 06-13-2021 Chronic Coronary atherosclerosis and other heart disease (20 sources) Presence of coronary angioplasty implant and graft; Translations: [Patient post percutaneous transluminal coronary angioplasty] Onset: 8 Resolved: 5 10-28-2022 Episodic Deficiency and other anemia (12 sources) Iron deficiency anemia due to blood loss; Translations: [Iron deficiency anemia secondary to blood loss (chronic)] 09-14-2023 Chronic Deficiency and other anemia (13 sources) Iron deficiency anemia secondary to blood [...] Hyperlipidemia, unspecified; Translations: [Mixed hyperlipidemia] Onset: 5 Resolved: 5 06-13-2021 Chronic Disorders of teeth and jaw (1 source) Jaw pain; Translations: [JAW PAIN] Onset: 8 Episodic Esophageal disorders (20 sources) Gastro-esophageal reflux disease with esophagitis; Translations: [Gastroesophageal reflux disease with esophagitis without hemorrhage] Onset: 3 Chronic Essential hypertension (20 sources) Essential (primary) hypertension; Translations: [Benign hypertension] Onset: 8 Resolved: 5 06-12-2021 Chronic Gastrointestinal hemorrhage (12 sources) Rectal hemorrhage; Translations: [Hemorrhage of anus and rectum] Episodic Headache; including migraine (17 sources) Episodic tension-type headache; Translations: [Episodic tension-type headache, not intractable] 09-13-2023 Chronic Immunizations and screening for infectious disease (4 sources) Vaccination given; Translations: [Encounter for immunization] Episodic Inflammatory conditions of male genital organs (8 sources) Orchitis; Translations: [Orchitis] 11-15-2023 Episodic Influenza (4 sources) Influenza due to Influenza A virus with upper respiratory signs; Translations: [Influenza due to other identified influenza virus with other respiratory manifestations] Episodic Melanomas of skin (5 sources) Personal history of malignant melanoma of skin; Translations: [History of malignant melanoma of the skin] Onset: 8 05-21-2024 Episodic Miscellaneous mental health disorders (20 sources) Primary insomnia; Translations: [Primary insomnia] Chronic Neoplasms of unspecified nature or uncertain behavior (2 sources) Neoplastic disease; Translations: [Neoplasm of unspecified behavior of bone, soft tissue, and skin] 05-21-2024 Episodic Other acquired deformities (2 sources) Surgical wound finding; Translations: [Acquired deformity of neck] 07-23-2024 Episodic Other aftercare (1 source) tipple repairer (current) use of aspirin; Translations: [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 (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) USE OF ASPIRIN] Onset: 8 Episodic Other aftercare (20 sources) Drug therapy finding; Translations: [Long-term (current) use of anticoagulants] Episodic Other aftercare (3 sources) Other sports athletic trainer (current) drug therapy; Translations: [Other fdc (current) drug therapy] Onset: 4 Episodic Other aftercare (15 sources) Taking high risk medication; Translations: [Other sports athletic trainer (current) drug therapy] Onset: 4 Resolved: 5 12-28-2023 Episodic Other and unspecified benign neoplasm (17 sources) Benign neoplasm of colon; Translations: [Benign neoplasm of descending colon] Episodic Other and unspecified benign neoplasm (1 source) Benign neoplasm of descending colon Episodic Other and unspecified benign neoplasm (4 sources) Benign neoplasm of descending colon; Translations: [Benign neoplasm of descending colon] Episodic Other and unspecified benign neoplasm (10 sources) Adenomatous polyp of colon ; Translations: [...] with diarrhea] 09-13-2023 Chronic Other gastrointestinal disorders (15 sources) Irritable bowel syndrome with diarrhea; Translations: [...] and abdomen] 04-21-2023 Episodic Other gastrointestinal disorders (8 sources) Loose stool; Translations: [Other fecal abnormalities] 10-17-2023 Episodic Other gastrointestinal disorders (8 sources) Disorder of gastrointestinal tract; Translations: [Other specified diseases of the digestive system] 10-17-2023 Episodic Other gastrointestinal disorders (8 sources) Urgent desire for stool; Translations: [Fecal urgency] 10-17-2023 Episodic Other gastrointestinal disorders (3 sources) Other specified diseases of the digestive system; Translations: [Other specified disorders of intestine] 10-17-2023 Episodic Other gastrointestinal disorders (3 sources) Other fecal abnormalities; Translations: [Abnormal feces] 10-17-2023 Episodic Other gastrointestinal disorders (1 source) Diarrhea, unspecified; Translations: [Diarrhea, unspecified] Onset: Episodic Other gastrointestinal disorders (4 sources) Small bowel bacterial overgrowth syndrome; Translations: [Small intestinal bacterial overgrowth (SIBO)] 05-17-2024 Episodic Other inflammatory condition of skin (12 [...] abnormalities] 10-28-2022 Episodic Other lower respiratory disease (10 sources) Nodule of lung; Translations: [Solitary pulmonary nodule] 09-13-2023 Episodic Other nervous system disorders (11 sources) Hereditary disorder of nervous system; Translations: [Hereditary and idiopathic neuropathy, unspecified] Chronic Other nervous system disorders (1 source) Other chronic pain; Translations: [OTHER CHRONIC PAIN] Onset: 2 Chronic Other nervous system disorders (10 sources) Neuropathy; Translations: [Hereditary and idiopathic neuropathy, unspecified] 09-13-2023 Chronic Other non-epithelial cancer of skin (20 sources) Basal cell carcinoma; Translations: [Basal cell [...] more but less than 30; Translations: [Overweight] Onset: 4 Resolved: 5 12-28-2023 Episodic Other nutritional; endocrine; and metabolic disorders (4 sources) Overweight; Translations: [Overweight] Episodic Other nutritional; endocrine; and metabolic disorders (2 sources) Overweight Episodic Other nutritional; endocrine; and metabolic disorders (2 sources) Body mass index (BMI) 28.0-28.9, adult; Translations: [Body mass index (BMI) 28.0-28.9, adult] Onset: 4 Episodic Other skin disorders (4 sources) Seborrheic keratosis; Translations: [Other seborrheic keratosis] 05-21-2024 Episodic Other skin disorders (4 sources) Lentiginosis; Translations: [Other melanin hyperpigmentation] 05-21-2024 Episodic Other skin disorders (4 sources) Actinic keratosis; Translations: [Actinic keratosis] 05-21-2024 Episodic Other upper respiratory disease (11 sources) [...] limb edema; Translations: [Localized edema] 09-13-2023 Episodic Residual codes; unclassified (2 sources) Insomnia; Translations: [Insomnia, unspecified] 05-17-2024 Episodic Residual codes; unclassified (2 sources) Insomnia, unspecified; Translations: [Insomnia, unspecified] 05-17-2024 Episodic Retinal detachments; defects; vascular occlusion; and retinopathy (4 sources) Retinal disorder; 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] Onset: 5 Chronic Screening and history of mental health and substance abuse codes (20 sources) Personal history of nicotine dependence; Translations: [Ex-smoker] Onset: 8 Resolved: 5 Episodic Comment on above: quit 1995ish; Spondylosis; [...] Classification Problem Date Documented Da te Episodic/Chronic Acute myocardial infarction (20 sources) Myocardial infarction; Translations: [Non-ST elevation (NSTEMI) myocardial infarction] Onset: 06-12-2021 Resolved: 07-22-2024 06-12-2021 Chronic Allergic reactions (10 sources) Allergic contact dermatitis due to plants, except food; Translations: [Allergic contact dermatitis due to plants, except food] Onset: 06-14-2016 Resolved: 04-13-2021 02-14-2024 Episodic Blindness and vision defects (3 sources) Bilateral regular astigmatism; Translations: [Regular astigmatism, bilateral] Onset: 07-22-2024 Resolved: 07-22-2024 07-22-2024 Episodic Cancer of prostate (20 sources) Personal history of malignant neoplasm of prostate; Translations: [History of malignant neoplasm of prostate] Onset: 05-09-2018 Resolved: 07-22-2024 07-06-2019 Episodic E Codes: Adverse effects of medical drugs (4 sources) Adverse effect of antithrombotic drugs, initial encounter; Translations: [Adverse effect of antithrombotic drugs, initial encounter] Onset: 06-14-2016 Episodic Esophageal disorders (2 sources) Esophageal disorders Genitourinary symptoms and ill-defined conditions (4 sources) Urge incontinence of urine; Translations: [Urge incontinence] Onset: 07-22-2024 Resolved: 07-22-2024 07-04-2020 Chronic Genitourinary symptoms and ill-defined conditions (8 sources) Dysuria; Translations: [Dysuria] Onset: 07-14-2018 Resolved: 07-22-2024 07-06-2019 Episodic Hypertension with complications and secondary hypertension (4 sources) Malignant hypertensive chronic kidney disease; Translations: [Hypertensive chronic kidney disease with stage 1 through stage 4 chronic kidney disease, or unspecified chronic kidney disease] Resolved: 06-02-2022 Chronic Melanomas of skin (20 sources) Malignant melanoma; Translations: [Malignant melanoma of skin, unspecified] Onset: 07-22-2024 Resolved: 07-22-2024 09-13-2023 Chronic Mycoses (3 sources) Dermatophytosis; Translations: [Dermatophytosis, unspecified] Onset: 07-22-2024 Resolved: 07-22-2024 07-22-2024 Episodic Nonspecific chest pain (18 sources) Chest pain, unspecified; Translations: [Chest pain] Onset: 04-21-2015 Resolved: 07-22-2024 Episodic Occlusion or stenosis of precerebral arteries (7 sources) Carotid artery occlusion; Translations: [Occlusion and stenosis of unspecified carotid artery] Onset: 06-08-2017 Resolved: 07-22-2024 07-22-2024 Chronic Osteoarthritis (20 sources) Arthritis of right hip; Translations: [Unilateral primary osteoarthritis, right hip] Onset: 07-22-2024 Resolved: 07-22-2024 Chronic Other aftercare (3 sources) Patient encounter status; Translations: [Encounter for therapeutic drug level monitoring] Onset: 07-22-2024 Resolved: 07-22-2024 07-22-2024 Episodic Other aftercare (3 sources) Long-term current use of anticoagulant; 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] Onset: 07-22-2024 Resolved: 07-22-2024 07-22-2024 Episodic Other connective tissue disease (1 source) Myalgia, unspecified site; Translations: [MYALGIA UNSPECIFIED SITE] Onset: 01-23-2022 Episodic Other connective tissue disease (3 sources) Enthesopathy; Translations: [Enthesopathy, unspecified] Onset: 07-22-2024 Resolved: 07-22-2024 07-22-2024 Episodic Other eye disorders (4 sources) Dermatochalasis [...] digestive system] Onset: 04-21-2023 04-21-2023 Episodic Other gastrointestinal disorders (4 sources) Diarrhea; Translations: [Diarrhea, unspecified] Onset: 07-22-2024 Resolved: 07-22-2024 03-29-2024 Episodic Other inflammatory condition of skin (4 [...] of lung field] Onset: 06-14-2016 Episodic Other male genital disorders (4 sources) Erectile dysfunction following radical prostatectomy; Translations: [Erectile dysfunction following radical prostatectomy] Onset: 07-22-2024 Resolved: 07-22-2024 03-20-2019 Chronic Other nervous system disorders (3 sources) Difficulty walking; Translations: [Difficulty in walking, not elsewhere classified] Onset: 07-22-2024 Resolved: 07-22-2024 07-22-2024 Chronic Other nervous system disorders (20 sources) Paresthesia; Translations: [Paresthesia of skin] Onset: 07-22-2024 Resolved: 07-22-2024 09-13-2023 Episodic Other non-traumatic joint disorders (4 sources) Pain in right hip; Translations: [PAIN IN RIGHT HIP] Onset: 12-29-2021 Episodic Other non-traumatic joint disorders (3 sources) Arthralgia of the ankle and/or foot; Translations: [Pain in unspecified ankle and joints of unspecified foot] Onset: 07-22-2024 Resolved: 07-22-2024 5 Episodic Other screening for suspected conditions (not mental disorders or infectious disease) (4 sources) Blood chemistry abnormal; Translations: [Other specified abnormal findings of blood chemistry] Resolved: 06-02-2022 Episodic Residual codes; unclassified (4 sources) H/O: anticoagulant therapy; Translations: [Personal history of other drug therapy] Onset: 07-22-2024 Resolved: 07-22-2024 03-20-2019 Episodic Unclassified (1 source) CONTACT W/AND (SUSP) EXPOS COVID-19; Translations: [CONTACT W/AND (SUSP) EXPOS COVID-19] Onset: 06-15-2022 Unclassified (1 source) LOW BACK PAIN, UNSPECIFIED; Translations: [LOW BACK PAIN, UNSPECIFIED] Onset: 02-09-2022 Unclassified (8 sources) Onset: 07-25-2023 Resolved: 07-24-2024 07-25-2023 Results Test Name Value Interpretation Reference Range Facility ECG 12 Leadon 07-24-2024 Sinus bradycardia, inferior WI age undetermined, abnormal ECG [facility] Work Phone: No Panel Informationon 07-18 Consent obtained: written (The rationale for Mohs as well as the risks, benefits, and alternatives. The risks of infection, scarring, bleeding, prolonged wound healing, incomplete removal, allergy to anesthesia or meds, nerve injury, and recurrence were addressed.) [place] Protocol: Procedure explained and questions answered to patient or proxy's satisfaction: Yes Test results available and properly labeled: Yes Pathology report reviewed: Yes Photo or diagram used for site identification: Yes Site/side marked: Yes Anticoagulation: Is the patient taking prescription anticoagulant and/or aspirin prescribed/recommended by a physician? Yes (81 mg ASA, eliquis, Effient) Was the anticoagulation regimen changed prior to Mohs? No Anesthesia: Anesthesia method: local infiltration Local anesthetic: lidocaine 1% WITH epi and sodium bicarbonate Procedure Details: Biopsy accession number: [id number] Biopsy lab: [facility] Date of biopsy: 05/21/2024 Frozen section biopsy performed: Yes Specimen debulked: No Pre-Op diagnosis: basal cell carcinoma BCC subtype: nodular and infiltrative MohsAIQ Surgical site (if tumor spans multiple areas, please select predominant area): neck Surgery side: right Surgical site (from skin exam): Anterior neck Pre-operative length (cm): 1.3 Pre-operative width (cm): 0.7 Indications for Mohs surgery: anatomic location where tissue conservation is critical and aggressive histology Previously treated? No Mohs Appropriate Use Criteria Score: 9 Details of micrographic surgery: Mohs accession number: [id number] Micrographic Surgery Details: Post-operative length (cm): 2.8 Post-operative width (cm): 2.2 Number of Mohs stages: 3 Stage 1 Comments: The area was prepped with Betadine, draped in a sterile fashion, and infiltrated with local anesthetic. Sterile technique was used throughout the procedure. The marked area of clinical tumor with a small rim of clinically normal surrounding skin was removed using Mohs technique with beveled edges. Hash acosta were placed for orientation of the specimen. Hemostasis was achieved with electrodessication. After hemostasis, the defect was measured and recorded, a temporary sterile dressing was placed over the wound, and the patient was escorted to the waiting area. The specimen was oriented, mapped, and if necessary, divided into sections. A Mohs map was prepared. The specimen was placed in a labeled jhonny dish and was taken to the Mohs lab where it was chromacoded and processed. Mohs sections were prepared with serial tissue sections, stained, and evaluated by Dr. Wagner for interpretation of deep and peripheral margins. The Mohs map was marked accordingly. Amount of lidocaine used: 2.6 cc Estimated blood loss: <1.0 cc Defect size: 1.3 x 1.2 cm Number of blocks per stage: 1 Number of positive blocks: 1 Tumor features identified on Mohs section: basal carcinoma Tumor features identified on Mohs section comment: nodular pattern Depth of defect after stage: dermis Stage 2 Comments: The patient returned to the procedure room, the dressing was removed, the tumor area was re-prepped and draped, and anesthesia was assessed and augmented as necessary. A layer of tissue around the positive margin(s) was removed, and the tissue was oriented, mapped, and processed in an identical fashion as for Stage 1. Hemostasis was achieved and dressing placed as in Stage 1. The patient was escorted to the waiting area. As with Stage 1, Mohs sections were prepared with serial tissue sections, stained, and evaluated by Dr. Wagner for interpretation of deep and peripheral margins. The Mohs map was updated. Assistants: Lev Mckenzie LPN Amount of lidocaine used: 2.4 cc Estimated blood loss: < 1.0 cc Defect size: 2.3 x 2.0 cm Number of blocks: 1 Number of positive blocks: 1 Tumor features identified on Mohs section: basal carcinoma Tumor features identified on Mohs section comment: entire deep margin Depth of defect after stage: subcutaneous fat Stage 3 Comments: The patient returned to the procedure room, the dressing was removed, the tumor area was re-prepped and draped, and anesthesia was assessed and augmented as necessary. A layer of tissue around the positive margin(s) was removed, and the tissue was oriented, mapped, and processed in an identical fashion as for Stage 1. Hemostasis was achieved and dressing placed as in Stage 1. The patient was escorted to the waiting area. As with Stage 1, Mohs sections were prepared with serial tissue sections, stained, and evaluated by Dr. Wagner for interpretation of deep and peripheral margins. The Mohs map was updated. Assistants: Lev Mckenzie LPN Amount of lidocaine used: 2.5 cc Estimated blood loss: < 1.0 cc Defect size: 2.8 x 2.2 cm Number of blocks: 1 Number of positive blocks: 0. Tumor free (more content not included)... [facility] Group Therapy Records No Panel InformationOrdered By: Aniya Meyer on 07-18-2024 [facility] Group Therapy Records No Panel Informationon 05-21 Type of biopsy: tangential Informed consent: discussed and consent obtained Informed consent comment: The risks and benefits of the biopsy were discussed. Risks include but are not limited to bleeding, infection, scarring, pain, and nerve damage. An opportunity to ask questions prior to the procedure was permitted and all questions were answered. Patient was prepped and draped in usual sterile fashion: area cleansed with alcohol. Anesthesia: the lesion was anesthetized in a standard fashion Anesthetic: 1% lidocaine w/ epinephrine 1-100,000 buffered w/ 8.4% NaHCO3 Instrument used: DermaBlade Hemostasis achieved with: electrodesiccation Outcome: patient tolerated procedure well Outcome comment: The specimen was placed in a prelabeled formalin container to be sent for pathology Post-procedure details: sterile dressing applied and wound care instructions given Post-procedure details comment: Emphasized need to contact clinic for any signs of infection, uncontrollable bleeding, or complications. Dressing type: bandage Additional details: Photo taken Amount of lidocaine used: 1.0 cc [facility] Basophils Auto (Bld) [#/Vol] on 04-11-2024 Basophils (Bld) [#/Vol] Automated basoph il count 0.0-0.1 [facility] Basophils/100 WBC Auto (Bld) on 04-11-2024 Basophils/100 WBC (Bld) Automated basophil % 0. 2-2.0 [facility] Eosinophils/100 WBC Auto (Bl d)on 04-11-2024 Eosinophils/100 WBC (Bld) Automated eosinophil % 0.9-7.0 [facility] Erythrocyte distribution wid th Auto (RBC) [Ratio]on 04-11-2024 Erythrocyte distribution width (RBC) [Ratio] Erythrocyte distribution width [Ratio] by Automated count 11.0-15.0 [facility] Hematocrit Auto (Bld) [Volum e fraction]on 04-11-2024 Hematocrit (Bld) [Volume fraction] Hematocrit [Volume Fraction] of Blood by Automated count 42.0-54.0 [facility] Hemoglobin [Mass/volume] in Bloodon 04-11-2024 Hemoglobin (Bld) [Mass/Vol] Hemoglobin [Mass/volume] in Blood 14.0-18.0 [facility] Iron binding capacity [Mass/ volume] in Serum or Plasmaon 04-11-2024 Iron binding capacity [Mass/Vol] Iron binding capacity [Mass/volume] in Serum or Plasma 250.0-450.0 [facility] Iron saturation [Mass Fracti on] in Serum or Plasmaon 04-11-2024 Iron saturation [Mass fraction] Iron saturation [Mass Fraction] in Serum or Plasma [facility] - Chemistry and C hemistry - challengeon 04-11-2024 Ferritin [Mass/Vol] 88.0 ng/mL 26.0-388.0 [facility] Iron [Mass/Vol] 77.0 ug/dL 65.0-175.0 [facility] - Hematology and Cell countson 04-11-2024 Immature granulocytes/100 WBC (Bld) 0.2 % 0.0-0.5 [facility] Leukocytes [#/volume] correc augustine for nucleated erythrocytes in Blood by Automated counon 04-11-2024 WBC corrected for nucl RBC Auto (Bld) [#/Vol] Leukocytes [#/volume] corrected for nucleated erythrocytes in Blood by Automated coun 4.0-11.0 [facility] Lymphocytes Auto (Bld) [#/Vo l]on 04-11-2024 Lymphocytes (Bld) [#/Vol] Lymphocytes [#/volume] in Blood by Automated count 1.2-3.8 [facility] Lymphocytes/100 WBC Auto (Bl d)on 04-11-2024 Lymphocytes/100 WBC (Bld) Lymphocytes/100 leukocytes in Blood by Automated count Low 20.5-60.0 [facility] MCH Auto (RBC) [Entitic mass ]on 04-11-2024 MCH (RBC) [Entitic mass] MCH [Entitic ma ss] by Automated count 25.9-34.0 [facility] MCHC Auto (RBC) [Mass/Vol]on 04-11-2024 MCHC (RBC) [Mass/Vol] MCHC [Mass/volume] by Automated count 29.9-35.2 [facility] MCV Auto (RBC) [Entitic vol] on 04-11-2024 MCV (RBC) [Entitic vol] MCV [Entitic vol ume] by Automated count High 80.0-94.0 [facility] Monocytes Auto (Bld) [#/Vol] on 04-11-2024 Monocytes (Bld) [#/Vol] Automated blood monocyte count High 0.3-0.8 [facility] Monocytes/100 WBC Auto (Bld) on 04-11-2024 Monocytes/100 WBC (Bld) Automated monocyte % 1. 7-12.0 [facility] Neutrophils Auto (Bld) [#/Vo l]on 04-11-2024 Neutrophils (Bld) [#/Vol] Neutrophils [#/volume] in Blood by Automated count High 1.4-6.5 [facility] Neutrophils/100 WBC Auto (Bl d)on 04-11-2024 Neutrophils/100 WBC (Bld) Automated neutrophil % 43.0-75.0 [facility] No Panel Informationon 04-11 Eosinophils # (Auto) 0.1 10 3/uL 0.0-0.7 [facility] [place] [facility] Immature Granulocyte # (Auto) 0.02 10 3/uL 0.00-0.03 [facility] Platelet mean volume Auto (B ld) [Entitic vol]on 04-11-2024 Platelet mean volume (Bld) [Entitic vol] Platelet mean volume [Entitic volume] in Blood by Automated count 9.5-13.5 [facility] Platelets Auto (Bld) [#/Vol] on 04-11-2024 Platelets (Bld) [#/Vol] Platelets [#/vol ume] in Blood by Automated count 150-450 [facility] RBC Auto (Bld) [#/Vol]on RBC (Bld) [#/Vol] Erythrocytes [#/volume] in Blood by Automated count 4.70-6.10 [facility] No Panel Informationon 02-13 [facility] NUCLEAR STRESS TESTon 2023 NUCLEAR STRESS TEST Interpreted By: Rose Green and Giannuzzi Michael STUDY: MYOCARDIAL PERFUSION STRESS TEST WITH EXERCISE Performing facility: [facility], [address] [place] [address], [address] [place] [address] Provider: August Baron DO, FACC PCP: Dr. Nohemy Canela Supervising provider: August Baron DO, FACC INDICATION: Chest Pain; HISTORY: Gender: M; Age: 83 y/o ; Height: HT 175.3 cm cm; Weight: WT 88.451 kg kg. CAD; High Cholesterol; Previous WI; HTN; Arrhythmias; Chest Pain; Quit smoking Unknown years ago. Cardiac catheterization on 2014, 2015, 2020. PTCA on 2014,2015, 2020. COMPARISON: Previous nuclear testing completed [id number] at [place]. ACCESSION NUMBER(S): [id number] ORDERING CLINICIAN: BRENDON BARON TECHNIQUE: ONE DAY [...] Rose Green 01/04/2024 4:22 PM Dictation workstation: [id number] Normal [facility] ECG 12 Leadon 12-28-2023 Sinus bradycardia, first-degree AV block, low voltage, abnormal ECG [facility] Work Phone: [facility] Work Phone: Basophils Auto (Bld) [#/Vol] on 12-16-2023 Basophils (Bld) [#/Vol] 0.0 10 3/uL 0.0-0.1 [facility] Basophils/100 WBC Auto (Bld) on 12-16-2023 Basophils/100 WBC (Bld) 0.3 % 0.2-2.0 [facility] Eosinophils/100 WBC Auto (Bl d)on 12-16-2023 Eosinophils/100 WBC (Bld) 1.0 % 0.9-7.0 [facility] Erythrocyte distribution wid th Auto (RBC) [Ratio]on 12-16-2023 Erythrocyte distribution width (RBC) [Ratio] 22.2 % High 11.0-15.0 [facility] Estimated glomerular filtrat ion rate (GFR) non- Americanon 12-16-2023 GFR/1.73 sq M.predicted among non-blacks MDRD (S/P/Bld) [Vol rate/Area] mL/min/{1.73_m2} >=60 [facility] Fibrin D-dimer [Presence] in Platelet poor plasma by Latex agglutinationon 12-16-2023 Fibrin D-dimer LA Ql (PPP) <0.19 mg/L FEU <=0.59 [facility] Comment on above: Increases in D-Dimer concentration [...] Hematocrit (Bld) [Volume fraction] 47.6 % 42.0-54.0 [facility] Hemoglobin [Mass/volume] in Bloodon 12-16-2023 Hemoglobin (Bld) [Mass/Vol] 15.6 g/dL 14.0-18.0 [facility] Laboratory - Chemistry and C hemistry - challengeon 12-16-2023 Calcium [Mass/Vol] 9.0 mg/dL 8.5-10.1 [facility] Chloride [Moles/Vol] 105 mmol/L 98-107 [facility] CO2 [Moles/Vol] 27.8 mmol/L 21.0-32.0 [facility] Creatinine [Mass/Vol] 1.12 mg/dL 0.70-1.30 [facility] [place] [facility] GFR/1.73 sq M.predicted MDRD (S/P/Bld) [Vol rate/Area] mL/min/{1.73_m2} >=60 [facility] Glucose [Mass/Vol] 174 mg/dL High 74-106 [facility] Natriuretic peptide B (Bld) [Mass/Vol] 129.0 pg/mL <=1800.0 [facility] Potassium [Moles/Vol] 4.0 mmol/L 3.5-5.1 [facility] [place] [facility] Sodium [Moles/Vol] 139 mmol/L 136-145 [facility] Urea nitrogen [Mass/Vol] 20.0 mg/dL High 7.0-18.0 [facility] Urea nitrogen/Creatinine [Mass ratio] 17.9 mg/mg [facility] - Hematology and Cell countson 12-16-2023 Immature granulocytes/100 WBC (Bld) 0.1 % 0.0-0.5 [facility] Leukocytes [#/volume] correc augustine for nucleated erythrocytes in Blood by Automated counon 12-16-2023 WBC corrected for nucl RBC Auto (Bld) [#/Vol] 8.8 10 3/uL 4.0-11.0 [facility] Lymphocytes Auto (Bld) [#/Vo l]on 12-16-2023 Lymphocytes (Bld) [#/Vol] 2.4 10 3/uL 1.2-3.8 [facility] Lymphocytes/100 WBC Auto (Bl d)on 12-16-2023 Lymphocytes/100 WBC (Bld) 27.3 % 20.5-60.0 [facility] MCH Auto (RBC) [Entitic mass ]on 12-16-2023 MCH (RBC) [Entitic mass] 28.7 pg 25.9-34.0 [facility] MCHC Auto (RBC) [Mass/Vol]on 12-16-2023 MCHC (RBC) [Mass/Vol] 32.8 g/dL 29.9-35.2 [facility] [place] [facility] MCV Auto (RBC) [Entitic vol] on 12-16-2023 MCV (RBC) [Entitic vol] 87.7 fL 80.0-94.0 [facility] Monocytes Auto (Bld) [#/Vol] on 12-16-2023 Monocytes (Bld) [#/Vol] 0.8 10 3/uL 0.3-0.8 [facility] Monocytes/100 WBC Auto (Bld) on 12-16-2023 Monocytes/100 WBC (Bld) 9.0 % 1.7-12.0 [facility] Neutrophils Auto (Bld) [#/Vo l]on 12-16-2023 Neutrophils (Bld) [#/Vol] 5.5 10 3/uL 1.4-6.5 [facility] Neutrophils/100 WBC Auto (Bl d)on 12-16-2023 Neutrophils/100 WBC (Bld) 62.3 % 43.0-75.0 [facility] No Panel Informationon 12-15 Eosinophils # (Auto) 0.1 10 3/uL 0.0-0.7 [facility] [place] [facility] Immature Granulocyte # (Auto) 0.01 10 3/uL 0.00-0.03 [facility] Troponin I High Sensitivity 7.3 pg/mL 4.0-76.1 [facility] Comment on above: CUT-OFF POINTS HAVE BEEN [...] volume (Bld) [Entitic vol] 9.8 fL 9.5-13.5 [facility] Platelets Auto (Bld) [#/Vol] on 12-16-2023 Platelets (Bld) [#/Vol] 178 10 3/uL 150-450 [facility] RBC Auto (Bld) [#/Vol]on RBC (Bld) [#/Vol] 5.43 10 6/uL 4.70-6.10 [facility] Serum or plasma anion gap de terminationon 12-16-2023 Anion gap [Moles/Vol] 10.2 mmol[facility] Basophils Auto (Bld) [#/Vol] on 11-22-2023 Basophils (Bld) [#/Vol] 0.0 10 3/uL 0.0-0.1 [facility] Basophils/100 WBC Auto (Bld) on 11-22-2023 Basophils/100 WBC (Bld) 0.6 % 0.2-2.0 [facility] Eosinophils/100 WBC Auto (Bl d)on 11-22-2023 Eosinophils/100 WBC (Bld) 2.6 % 0.9-7.0 [facility] Erythrocyte distribution wid th Auto (RBC) [Ratio]on 11-22-2023 Erythrocyte distribution width (RBC) [Ratio] 24.3 % High 11.0-15.0 [facility] Ferritinon 11-22-2023 Ferritin [Mass/Vol] 146.7 ng/mL Normal 23.9-336.2 [facility] Comment on above: Result Comment: PERF ORMED BY: [place] [address] PATHOLOGIST [employer]ANGE ANALYST GABINO ARCOS M.D. Performed By: #### F ER #### [address] Ferritin [Mass/volume] in Se rum or PlasmaOrdered By: Miriam Juarez on 11-22-2023 Ferritin [Mass/Vol] 146.7 ng/mL 23.9-336.2 [facility] Hematocrit Auto (Bld) [Volum e fraction]on 11-22-2023 Hematocrit (Bld) [Volume fraction] 47.9 % 42.0-54.0 [facility] Hemoglobin [Mass/volume] in Bloodon 11-22-2023 Hemoglobin (Bld) [Mass/Vol] 15.3 g/dL 14.0-18.0 [facility] Iron binding capacity [Mass/ volume] in Serum or Plasmaon 11-22-2023 Iron binding capacity [Mass/Vol] 293.0 ug/dL 250.0-450.0 [facility] Iron saturation [Mass Fracti on] in Serum or Plasmaon 11-22-2023 Iron saturation [Mass fraction] 28.3 % [facility] - Chemistry and C hemistry - challengeon 11-22-2023 Iron [Mass/Vol] 83.0 ug/dL 65.0-175.0 [facility] - Hematology and Cell countson 11-22-2023 Immature granulocytes/100 WBC (Bld) 0.3 % 0.0-0.5 [facility] Leukocytes [#/volume] correc augustine for nucleated erythrocytes in Blood by Automated counon 11-22-2023 WBC corrected for nucl RBC Auto (Bld) [#/Vol] 7.2 10 3/uL 4.0-11.0 [facility] Lymphocytes Auto (Bld) [#/Vo l]on 11-22-2023 Lymphocytes (Bld) [#/Vol] 1.8 10 3/uL 1.2-3.8 [facility] Lymphocytes/100 WBC Auto (Bl d)on 11-22-2023 Lymphocytes/100 WBC (Bld) 25.3 % 20.5-60.0 [facility] MCH Auto (RBC) [Entitic mass ]on 11-22-2023 MCH (RBC) [Entitic mass] 27.8 pg 25.9-34.0 [facility] MCHC Auto (RBC) [Mass/Vol]on 11-22-2023 MCHC (RBC) [Mass/Vol] 31.9 g/dL 29.9-35.2 [facility] MCV Auto (RBC) [Entitic vol] on 11-22-2023 MCV (RBC) [Entitic vol] 86.9 fL 80.0-94.0 [facility] Monocytes Auto (Bld) [#/Vol] on 11-22-2023 Monocytes (Bld) [#/Vol] 0.9 10 3/uL High 0.3-0.8 [facility] Monocytes/100 WBC Auto (Bld) on 11-22-2023 Monocytes/100 WBC (Bld) 12.3 % High 1.7-12.0 [facility] Neutrophils Auto (Bld) [#/Vo l]on 11-22-2023 Neutrophils (Bld) [#/Vol] 4.3 10 3/uL 1.4-6.5 [facility] Neutrophils/100 WBC Auto (Bl d)on 11-22-2023 Neutrophils/100 WBC (Bld) 58.9 % 43.0-75.0 [facility] No Panel Informationon 11-21 Eosinophils # (Auto) 0.2 10 3/uL 0.0-0.7 [facility] Immature Granulocyte # (Auto) 0.02 10 3/uL 0.00-0.03 [facility] Platelet mean volume Auto (B ld) [Entitic vol]on 11-22-2023 Platelet mean volume (Bld) [Entitic vol] 9.7 fL 9.5-13.5 [facility] Platelets Auto (Bld) [#/Vol] on 11-22-2023 Platelets (Bld) [#/Vol] 184 10 3/uL 150-450 [facility] RBC Auto (Bld) [#/Vol]on RBC (Bld) [#/Vol] 5.51 10 6/uL 4.70-6.10 [facility] Paulo 10-26-2023 L Specimen: [id number] Received: 10/26/23 Status: ANSHUL Zarate Num: [id number] Spec Type: Surgical Subm Dr: Colleen Ochoa MD Tissues: A Colon Biopsy (RANDOM COLON BX) B Colon Biopsy (RECTAL POLYPS) Procedures: HE/4, Gross/Micro L4/2 Age/ Patient Sex Location Account Attending Physician Valentín Buckner 83/M [id number] Colleen Ochoa MD SPEC NUM: [id number] RECD: 10/26/23 STATUS: ANSHUL ZARATE NUM: [id number] MODESTA: 10/26/23- SUBM DR: Colleen Ochoa MD ENTERED: 10/26/[address] [facility] [address]: SPEC TYPE: Surgical DEPT: S ORDERED: [...] stools. Rule out microscopic colitis ---- Specimen: [id number] Received: 10/26/23 Status: ANSHUL Siddiqimaranda Num: [id number] Spec Type: Surgical Subm Dr: Colleen Ochoa MD Tissues: A Colon Biopsy (RANDOM COLON BX) B Colon Biopsy (RECTAL POLYPS) Procedures: HE/4, Gross/Micro L4/2 ---- Patient: Valentín Buckner [id number] (Continued) ---- Specimen: [id number] Received: 10/26/23 (Continued) Signed (signature on file) Kika Jade MD 10/27/23 112 ---- Specimen: [id number] Received: 10/26/23 Status: ANSHUL Zarate Num: [id number] Spec Type: Surgical Subm Dr: Colleen Ochoa MD Tissues: A Colon Biopsy (RANDOM COLON BX) B Colon Biopsy (RECTAL POLYPS) Procedures: MARCELA/Silver, Gross/Micro L4/2 ---- Patient: Valentín Buckner [id number] (Continued) ---- Specimen: [id number] Received: 10/26/23 (Continued) CPT Codes 44201b4 ---- ---- Specimen: [id number] Received: 10/26/23 Status: ANSHUL Zarate Num: [id number] Spec Type: Surgical Subm Dr: Colleen Ochoa MD Tissues: A Colon Biopsy (RANDOM COLON BX) B Colon Biopsy (RECTAL POLYPS) Procedures: HE/Silver, Gross/Micro L4/2 ---- Patient: Valentín Buckner [id number] (Continued) ---- Signed (signature on file) Kika Jade MD 10/27/231126 Normal [facility] Elastase.pancreatic [Mass/ma ss] in Stoolon 10-20-2023 Elastase.pancreatic (Stl) [Mass/Mass] 242 >200 [facility] Comment on above: Result Units: ug Marissa st./g Severe Pancreatic Insufficiency: <100 Moderate Pancreatic Insufficiency: 100 - 200 Normal: >200Performed at: [facility] [address] [place], [place] [id number] Director: Christophe Matthew MD, Phone: [phone] HIV 1 and HIV-2 antibody ass ay with HIV-1 p24 antigen detectionon 10-20-2023 HIV 1+2 Ab+HIV1 p24 Ag IA Ql Non-Reactive Non Reactive [facility] Comment on above: HIV NegativeHIV-1/HI V-2 antibodies and HIV-1 p24 antigen were NOTdetected. There is no laboratory evidence of HIV infection.Performed at: [address] [id number] Director: Terell Silva PhD, Phone: [phone] IgA [Mass/volume] in Serum o r Plasmaon 10-20-2023 IgA [Mass/Vol] 150 mg/dL 61-437 [facility] Comment on above: Performed at: [facility] [address] [id number] Director: Terell Silva PhD, Phone: [phone] Laboratory - Chemistry and C hemistry - challengeon 10-20-2023 TSH Qn 1.511 m[IU]/L 0.358-3.740 [facility] Laboratory - Hematology and Cell countson 10-20-2023 ESR (Bld) [Velocity] 12 mm/h <=20 [facility] No Panel Informationon 10-19 C-Reactive Protein, Quantitative <0.50 mg/dL <=0.50 [facility] Endomysial IgA Antibody Negative Negative [facility] Clostridium difficile (PCR)(LAB) Negative NEGATIVE [facility] Miscellaneous Test Comment See comment [facility] Comment on above: Specimen Source: ST - Stool - Stool - 700.100 Ova & Parasite Result 1 Comment . [facility] Comment on above: No ova, cysts, or pa rasites seen.One negative specimen does not rule out the possibility ofa parasitic infection.Performed at: [address] [id number] Director: Terell Silva PhD, Phone: [phone] Ova and Parasites (LAB) Final report . [facility] Comment on above: These results were o btained using wet preparation(s) andtrichrome stained smear. This test does not include testingfor Cryptosporidium parvum, Cyclospora, or Microsporidia. Stool Calprotectin 102 ug/g 0-120 [facility] Comment on above: Concentration Interp retation Follow-Up< 5 - 50 ug/g Normal None>50 -120 ug/g Borderline Re-evaluate in 4-6 weeks >120 ug/g Abnormal Repeat as clinically indicatedPerformed at: - [facility] [address] [id number] Director: Christophe Matthew MD, Phone: [phone] Stool Campylobacter Culture Res 1 See comment [facility] Comment on above: [facility], No Panel InformationOrdered By: Colleen Ochoa on 10-20-2023 E coli Shiga Toxin EIA [facility] Salmonella/Shigella Screen [facility] Serum gliadin peptide IgA an tibody assay (units/volume)on 10-20-2023 Gliadin peptide IgA Qn (S) 3 units 0-19 [facility] Comment on above: Negative 0 - 19 Weak Positive 20 - 30 Moderate to Strong Positive >30 Serum gliadin peptide IgG an tibody assay (units/volume)on 10-20-2023 Gliadin peptide IgG Qn (S) 2 units 0-19 [facility] Comment on above: Negative 0 - 19 Weak Positive 20 - 30 Moderate to Strong Positive >30 Serum tissue transglutaminas e (tTG) IgA antibody assay (units/volume)on 10-20-2023 tTG IgA Qn (S) <2 U/mL 0-3 [facility] Comment on above: Negative 0 - 3 Weak Positive 4 - 10 Positive >10 Tissue Transglutaminase (tTG) has been identified as the endomysial antigen. Studies have demonstr- ated that endomysial IgA antibodies have over 99% specificity for gluten sensitive enteropathy. Serum tissue transglutaminas e (tTG) IgG antibody assay (units/volume)on 10-20-2023 tTG IgG Qn (S) 3 U/mL 0-5 [facility] Comment on above: Negative 0 - 5 Weak Positive 6 - 9 Positive >9 Albumin [Mass/volume] in Ser um or Plasmaon 2023 Albumin [Mass/Vol] 4.0 g/dL 2.9-4.4 [facility] Basophils Auto (Bld) [#/Vol] on 2023 Basophils (Bld) [#/Vol] 0.0 10 3/uL 0.0-0.1 [facility] Basophils/100 WBC Auto (Bld) on 2023 Basophils/100 WBC (Bld) 0.4 % 0.2-2.0 [facility] Eosinophils/100 WBC Auto (Bl d)on 2023 Eosinophils/100 WBC (Bld) 2.9 % 0.9-7.0 [facility] Erythrocyte distribution wid th Auto (RBC) [Ratio]on 2023 Erythrocyte distribution width (RBC) [Ratio] 22.1 % 11.0-15.0 [facility] Hematocrit Auto (Bld) [Volum e fraction]on 2023 Hematocrit (Bld) [Volume fraction] 43.4 % 42.0-54.0 [facility] Hemoglobin [Mass/volume] in Bloodon 2023 Hemoglobin (Bld) [Mass/Vol] 13.1 g/dL 14.0-18.0 [facility] IgA [Mass/volume] in Serum o r Plasmaon 2023 IgA [Mass/Vol] 151 mg/dL 61-437 [facility] IgG [Mass/volume] in Serum o r Plasmaon 2023 IgG [Mass/Vol] 911 mg/dL 603-1613 [facility] IgM [Mass/volume] in Serum o r Plasmaon 2023 IgM [Mass/Vol] 53 mg/dL 15-143 [facility] Iron binding capacity [Mass/ volume] in Serum or Plasmaon 2023 Iron binding capacity [Mass/Vol] 411.0 ug/dL 250.0-450.0 [facility] Iron saturation [Mass Fracti on] in Serum or Plasmaon 2023 Iron saturation [Mass fraction] 11.2 % [facility] Laboratory - Chemistry and C hemistry - challengeon 2023 Ferritin [Mass/Vol] 13.0 ng/mL 26.0-388.0 [facility] Iron [Mass/Vol] 46.0 ug/dL 65.0-175.0 [facility] Laboratory - Hematology and Cell countson 2023 Immature granulocytes/100 WBC (Bld) 0.1 % 0.0-0.5 [facility] Leukocytes [#/volume] correc augustine for nucleated erythrocytes in Blood by Automated counon 2023 WBC corrected for nucl RBC Auto (Bld) [#/Vol] 8.0 10 3/uL 4.0-11.0 [facility] Lymphocytes Auto (Bld) [#/Vo l]on 2023 Lymphocytes (Bld) [#/Vol] 2.2 10 3/uL 1.2-3.8 [facility] Lymphocytes/100 WBC Auto (Bl d)on 2023 Lymphocytes/100 WBC (Bld) 27.5 % 20.5-60.0 [facility] MCH Auto (RBC) [Entitic mass ]on 2023 MCH (RBC) [Entitic mass] 25.0 pg 25.9-34.0 [facility] MCHC Auto (RBC) [Mass/Vol]on 2023 MCHC (RBC) [Mass/Vol] 30.2 g/dL 29.9-35.2 [facility] MCV Auto (RBC) [Entitic vol] on 2023 MCV (RBC) [Entitic vol] 83.0 fL 80.0-94.0 [facility] Monocytes Auto (Bld) [#/Vol] on 2023 Monocytes (Bld) [#/Vol] 1.0 10 3/uL 0.3-0.8 [facility] Monocytes/100 WBC Auto (Bld) on 2023 Monocytes/100 WBC (Bld) 12.1 % 1.7-12.0 [facility] Neutrophils Auto (Bld) [#/Vo l]on 2023 Neutrophils (Bld) [#/Vol] 4.5 10 3/uL 1.4-6.5 [facility] Neutrophils/100 WBC Auto (Bl d)on 2023 Neutrophils/100 WBC (Bld) 57.0 % 43.0-75.0 [facility] No Panel Informationon 10-12 Eosinophils # (Auto) 0.2 10 3/uL 0.0-0.7 [facility] Immature Granulocyte # (Auto) 0.01 10 3/uL 0.00-0.03 [facility] Protein Electrophoresis M-Johnnie Not Observed g/dL Not Observed [facility] Protein Electrophoresis Note Comment . [facility] Comment on above: Protein electrophore sis scan will follow via computer,mail, or housing management representative delivery.Performed at: [facility] [address] [id number] Director: Terell Silva PhD, Phone: [phone] Platelet mean volume Auto (B ld) [Entitic vol]on 2023 Platelet mean volume (Bld) [Entitic vol] 10.1 fL 9.5-13.5 [facility] Platelets Auto (Bld) [#/Vol] on 2023 Platelets (Bld) [#/Vol] 236 10 3/uL 150-450 [facility] Protein [Mass/volume] in Ser um or Plasmaon 2023 Protein [Mass/Vol] 6.8 g/dL 6.0-8.5 [facility] RBC Auto (Bld) [#/Vol]on RBC (Bld) [#/Vol] 5.23 10 6/uL 4.70-6.10 [facility] Serum globulin measurement ( mass/volume)on 2023 Globulin (S) [Mass/Vol] 2.8 g/dL 2.2-3.9 [facility] Serum or plasma albumin/glob ulin mass ratioon 2023 Albumin/Globulin [Mass ratio] 1.5 {ratio} 0.7-1.7 [facility] Serum or plasma alpha 1 glob ulin measurement by electrophoresis (mass/volume)on 2023 Alpha 1 globulin Elph [Mass/Vol] 0.3 g/dL 0.0-0.4 [facility] Serum or plasma alpha 2 glob ulin measurement by electrophoresis (mass/volume)on 2023 Alpha 2 globulin Elph [Mass/Vol] 0.7 g/dL 0.4-1.0 [facility] Serum or plasma beta globuli n measurement by electrophoresis (mass/volume)on 2023 Beta globulin Elph [Mass/Vol] 1.0 g/dL 0.7-1.3 [facility] Serum or plasma gamma globul in measurement by electrophoresis (mass/volume)on 2023 Gamma globulin Elph [Mass/Vol] 0.8 g/dL 0.4-1.8 [facility] Serum or plasma immunoelectr ophoresis interpretationon 2023 Interpretation IEP [Interp] Comment . [facility] Comment on above: No monoclonality det ected. Aspartate Amino Transferaseo n 08-29-2023 AST [Catalytic activity/Vol] 15 U/L Normal 13-39 [facility] Comment on above: Performed By: #### B MP, TSH3, AST #### [facility] [address] [place] [address] [place] Aspartate aminotransferase [ Enzymatic activity/volume] in Serum or PlasmaOrdered By: Florence Aden on 08-29-2023 AST [Catalytic activity/Vol] 15 U/L 13-39 [facility] Basic Metabolic Panelon Anion gap [Moles/Vol] 10.5 mmol/L Normal 6.0-15.0 [facility] Comment on above: Performed By: #### B MP, TSH3, AST #### [facility] [address] [place] [address] [place] Calcium [Mass/Vol] 8.7 mg/dL Normal 8.6-10.3 [facility] Comment on above: Performed By: #### B MP, TSH3, AST #### [facility] [address] [place] [id number] [place] Chloride [Moles/Vol] 108 mmol/L High 98-107 [facility] Comment on above: Performed By: #### B MP, TSH3, AST #### [facility] [address] [place] [address] [place] CO2 [Moles/Vol] 26.9 mmol/L Normal 21.0-31.0 [facility] Comment on above: Performed By: #### B CONRADO TSH3, AST #### [facility] [address] [place] [address] [place] Creatinine [Mass/Vol] 1.11 mg/dL Normal 0.70-1.30 [facility] Comment on above: Performed By: #### B CONRADO TSH3, AST #### [facility] [address] [place] [address] [place] GFR/1.73 sq M.predicted MDRD (S/P/Bld) [Vol rate/Area] mL/min/{1.73_m2} Normal [facility] Comment on above: Performed By: #### B CONRADO TSH3, AST #### [facility] [address] [place] [address] [place] Glucose [Mass/Vol] 95 mg/dL Normal 70-100 [facility] Comment on above: Result Comment: [facility] Glucose Reference Range is dependent on time and content of last meal. Glucose of more than 200 mg/dL in a nonstressed, ambulatory subject supports the diagnosis of Diabetes Mellitus. ADA recommended reference range Performed By: #### B CONRADO TSH3, AST #### [facility] [address] [place] [address] [place] Potassium [Moles/Vol] 4.4 mmol/L Normal 3.5-5.1 [facility] Comment on above: Performed By: #### B CONRADO TSH3, AST #### [facility] [address] [place] [address] [place] Sodium [Moles/Vol] 141 mmol/L Normal 136-145 [facility] Comment on above: Performed By: #### B CONRADO TSH3, AST #### [facility] [address] [place] [address] [place] Urea nitrogen [Mass/Vol] 22 mg/dL Normal 7-25 [facility] Comment on above: Performed By: #### B CONRADO TSH3, AST #### [facility] [address] [place] [id number] [facility] Calcium [Mass/volume] in Ser um or PlasmaOrdered By: Florence Aden on 08-29-2023 Calcium [Mass/Vol] 8.7 mg/dL 8.6-10.3 [facility] Carbon dioxide, total [Moles /volume] in Serum or PlasmaOrdered By: Florence Aden on 08-29-2023 CO2 [Moles/Vol] 26.9 mmol/L 21.0-31.0 [facility] Chloride [Moles/volume] in S ky or PlasmaOrdered By: Florence Aden on 08-29-2023 Chloride [Moles/Vol] 108 mmol/L 98-107 [facility] Creatinine [Mass/volume] in Serum or PlasmaOrdered By: Florence Aden on 08-29-2023 Creatinine [Mass/Vol] 1.11 mg/dL 0.70-1.30 [facility] Glucose [Mass/volume] in Ser um or PlasmaOrdered By: Florence Aden on 08-29-2023 Glucose [Mass/Vol] 95 mg/dL 70-100 [facility] Comment on above: ADA recommended refe rence rangeRandom Glucose Reference Range is dependent on time and content of last meal. Glucose of more than 200 mg/dL in a nonstressed, ambulatory subject supports the diagnosis of Diabetes Mellitus. No Panel InformationOrdered By: Florence Aden on 08-29-2023 Estimated GFR (CKD-EPI) > 60.0 mL/Min [facility] Creatinine Clearance (Chem N/A [facility] Potassium [Moles/volume] in Serum or PlasmaOrdered By: Florence Aden on 08-29-2023 Potassium [Moles/Vol] 4.4 mmol/L 3.5-5.1 [facility] Serum or plasma anion gap de terminationOrdered By: Florence Aden on 08-29-2023 Anion gap [Moles/Vol] 10.5 mmol/L 6.0-15.0 [facility] Sodium [Moles/volume] in Ser um or PlasmaOrdered By: Florence Aden on 08-29-2023 Sodium [Moles/Vol] 141 mmol/L 136-145 [facility] Thyroid Stimulating Hormoneo n 08-29-2023 TSH Qn 2.16 m[IU]/L Normal 0.45-5.33 [facility] Comment on above: Result Comment: PERF ORMED BY: [place] [address] PATHOLOGIST [employer]LO[employer]IMATE CHANGE ANALYST GABINO ARCOS M.D. Performed By: #### B MP, TSH3, AST #### [address] Thyrotropin [Units/volume] i n Serum or PlasmaOrdered By: Florence Aden on 08-29-2023 TSH Qn 2.16 m[IU]/L 0.45-5.33 [facility] Urea nitrogen [Mass/volume] in Serum or PlasmaOrdered By: Florence Aden on 08-29-2023 Urea nitrogen [Mass/Vol] 22 mg/dL 7-25 [facility] XR chest 2V*on 08-29-2023 XR chest 2V* [facility] [place] [address] [place] [address] XRay Report Signed Patient: Valentín Buckner MR#: [id number] : 1940 Acct:[id number] Age/Sex: 82 / M ADM Date: 08/29/23 Loc: RT Room: Type: [facility] Attending Dr: Alfred Baron DO [...] Erica Landry M.D.08/29/2023 3:43 PM Dictation Location: [facility] Transcribed By: LUCRECIA 08/29/23 154 Dictated By: Erica Landry MD 08/29/23 1539 Signed By: 08/29/23 154 Normal [facility] ECG 12 Leadon 07-25-2023 Sinus bradycardia, first-degree AV block [facility] Work Phone: [facility] Work Phone: Paulo 04-21-2023 L -- ---- Specimen: [id number] Received: 04/21/23 Status: ANSHUL Zarate Num: [id number] Spec Type: Surgical Subm Dr: Markell Garza MD Tissues: A Duodenum - Biopsy (DUODENUM BX) B STOMACH FOR HP (ANTRAL HP) C Duodenum - Biopsy (DESCENDING DUODENUM) D Esophagus Biopsy (ESOPHAGEAL BX) Procedures: HE/8, Gross/Micro L4/4, H PYLORI, IHC First AB ---- Age/ Patient Sex Location Account Attending Physician ---- Valentín Buckner 82/M [id number] Markell Garza MD ---- SPEC NUM: [id number] RECD: 04/21/23 STATUS: ANSHUL ZARATE NUM: [id number] MODESTA: 04/21/23 DR: Markell Garza MD ENTERED: 04/21/[address]: LEONCIO TYPE: Surgical DEPT: S ORDERED: [...] acanthosis and only occasional lymphocytic ---- Specimen: [id number] Received: 04/21/23 Status: ANSHUL Zarate Num: [id number] Spec Type: Surgical Subm Dr: Markell Garza MD Tissues: A Duodenum - Biopsy (DUODENUM BX) B STOMACH FOR HP (ANTRAL HP) C Duodenum - Biopsy (DESCENDING DUODENUM) D Esophagus Biopsy (ESOPHAGEAL BX) Procedures: HE/8, Gross/Micro L4/4, H PYLORI, IHC First AB ---- Patient: Valentín Buckner [id number] (Continued) ---- Specimen: Received: 04/21/23 (Continued) Pathological Diagnosis (Continued) Signed (signature on file) Martha Sevilla MD 04/29/23 0933 ---- Specimen: Received: 04/21/23 Status: ANSHUL Zarate Num: [id number] Spec Type: Surgical Subm Dr: Markell Garza MD Tissues: A Duodenum - Biopsy (DUODENUM BX) B STOMACH FOR HP (ANTRAL HP) C Duodenum - Biopsy (DESCENDING DUODENUM) D Esophagus Biopsy (ESOPHAGEAL BX) Procedures: HE/8, Gross/Micro L4/4, H PYLORI, IHC First AB ---- Patient: Valentín Buckner [id number] (Continued) ---- Specimen: [id number] Received: 04/21/23-114 (Continued) Pathological Diagnosis (Continued) exocytosis noted, otherwise [...] bio (more content not included)... Normal [facility] Office Visit (Cardiology)on 03-23-2023 Follow-up [...] outside facility May 2021 NSTEMI admit at [facility] May 2021 cardiac cath: pLAD patent stent pCX patent stent oOM2 50-70% RCA patent stent Current daily activity greater than 4 METS without concerning symptoms Normal cardiac ejection fraction May 2021 cardiac cath LVEF 60% Bradycardia (427.89) (R00.1) August 2021 Holter average HR 64 on no AVN agents Likely element of SSS (although PAF rates > 100) November [address] [facility] nocturnal bradycardia, no high-grade heart block. Orders Overweight with body mass index (BMI) of 28 to 28.9 in adult Healthy Weight Tips; Status:Complete; Done: [id number] Patient Instructions Please bring all medicines, vitamins, [...] MG Oral Tablet Delayed ReleaseTAKE 1 TABLET Gws-Qal-Tbdghx Atorvastatin Calcium 40 MG Oral TabletTAKE 1 [...] DAILY. as needed Vitamin D3 50 MCG (2000 UT) Oral CapsuleTAKE 1 CAPSULE Daily Zinc 50 MG Oral TabletTAKE 1 TABLET DAILY. Patient did not bring medication list or bottles. Updated verbally with patient Allergies Medication Plavix Allergy; Rash; Recorded By: Sarah King; 07/01/2021 11:55:50 AM Social (more content not included)... Normal [facility] Aspartate Amino Transferaseo n 03-21-2023 AST [Catalytic activity/Vol] 13 U/L Normal 13-39 [facility] Comment on above: Performed By: #### T SH3, BMP, AST #### [address] Aspartate aminotransferase [ Enzymatic activity/volume] in Serum or PlasmaOrdered By: Alfred Baron on 03-21-2023 AST [Catalytic activity/Vol] 13 U/L 13-39 [facility] Basic Metabolic Panelon 02-26 Anion gap [Moles/Vol] 7.8 mmol/L Normal 6.0-15.0 [facility] Comment on above: Performed By: #### T SH3, BMP, AST #### [address] Calcium [Mass/Vol] 8.5 mg/dL Low 8.6-10.3 [facility] Comment on above: Performed By: #### T SH3, BMP, AST #### [address] Chloride [Moles/Vol] 107 mmol/L Normal 98-107 [facility] Comment on above: Performed By: #### T SH3, BMP, AST #### [address] CO2 [Moles/Vol] 29.7 mmol/L Normal 21.0-31.0 [facility] Comment on above: Performed By: #### T SH3, BMP, AST #### [address] Creatinine [Mass/Vol] 0.97 mg/dL Normal 0.70-1.30 [facility] Comment on above: Performed By: #### T SH3, BMP, AST #### [address] [place] [address] [place] GFR/1.73 sq M.predicted MDRD (S/P/Bld) [Vol rate/Area] mL/min/{1.73_m2} Normal [facility] Comment on above: Performed By: #### T SYDNI STRICKLAND, AST #### [facility] [address] Glucose [Mass/Vol] 83 mg/dL Normal 70-100 [facility] Comment on above: Result Comment: [facility] Glucose Reference Range is dependent on time and content of last meal. Glucose of more than 200 mg/dL in a nonstressed, ambulatory subject supports the diagnosis of Diabetes Mellitus. ADA recommended reference range Performed By: #### T SYDNI STRICKLAND, AST #### [address] Potassium [Moles/Vol] 4.5 mmol/L Normal 3.5-5.1 [facility] Comment on above: Performed By: #### T SYDNI STRICKLAND, AST #### [place] [address] [place] Sodium [Moles/Vol] 140 mmol/L Normal 136-145 [facility] Comment on above: Performed By: #### T SYDNI STRICKLAND, AST #### [address] Urea nitrogen [Mass/Vol] 18 mg/dL Normal 7-25 [facility] Comment on above: Performed By: #### T SYDNI STRICKLAND, AST #### [address] Calcium [Mass/volume] in Ser um or PlasmaOrdered By: Alfred Baron on 03-21-2023 Calcium [Mass/Vol] 8.5 mg/dL 8.6-10.3 [facility] Carbon dioxide, total [Moles /volume] in Serum or PlasmaOrdered By: Alfred Baron on 03-21-2023 CO2 [Moles/Vol] 29.7 mmol/L 21.0-31.0 [facility] Chloride [Moles/volume] in S ky or PlasmaOrdered By: Alfred Baron on 03-21-2023 Chloride [Moles/Vol] 107 mmol/L 98-107 [facility] Creatinine [Mass/volume] in Serum or PlasmaOrdered By: Alfred Baron on 03-21-2023 Creatinine [Mass/Vol] 0.97 mg/dL 0.70-1.30 [facility] Glucose [Mass/volume] in Ser um or PlasmaOrdered By: Alfred Baron on 03-21-2023 Glucose [Mass/Vol] 83 mg/dL 70-100 [facility] Comment on above: ADA recommended refe rence rangeRandom Glucose Reference Range is dependent on time and content of last meal. Glucose of more than 200 mg/dL in a nonstressed, ambulatory subject supports the diagnosis of Diabetes Mellitus. No Panel InformationOrdered By: Alfred Baron on 03-21-2023 Estimated GFR (CKD-EPI) > 60.0 mL/Min [facility] Creatinine Clearance (Chem N/A [facility] No Panel Informationon 03-21 > 60.0 Normal [facility] [place] [address] DO Work Phone: [phone] 7.8\S\7.8 Normal 6.0-15.0 [facility] [place] DO Work Phone: 8.5\S\8.5 below low threshold 8.6-10.3 [facility] [address] DO Work Phone: 29.7\S\29.7 Normal 21.0-31.0 [facility] [address] DO Work Phone: 107\S\107 Normal 98-107 [facility] [address] DO Work Phone: 4.5\S\4.5 Normal 3.5-5.1 [facility] [address] DO Work Phone: 140\S\140 Normal 136-145 [facility] [address] DO Work Phone: 0.97\S\0.97 Normal 0.70-1.30 [facility] Michael barrios 250 DO Work Phone: 18\S\18 Normal 7-25 [facility] Michael Crandall DO Work Phone: 83\S\83 Normal 70-100 [facility] Michael Crandall DO Work Phone: Comment on above: Random Glucose Refer ence Range is dependent on time and content of last meal. Glucose of more than 200 mg/dL in a nonstressed, ambulatory subject supports the diagnosis of Diabetes Mellitus. ADA recommended reference range 13\S\13 Normal 13-39 [facility] Michael Crandall DO Work Phone: 1.36\S\1.36 Normal 0.45-5.33 [facility] Michael Crandall DO Work Phone: Comment on above: PERFORMED BY:[facility] LICHA QUICK [id number] MEDICAL DIRECTORGABINO ARCOS M.D. Potassium [Moles/volume] in Serum or PlasmaOrdered By: Alfred Baron on 03-21-2023 Potassium [Moles/Vol] 4.5 mmol/L 3.5-5.1 [facility] Radiologyon 03-21-2023 XR Chest 2 Views Normal [facility] Michael Crandall DO Work Phone: Serum or plasma anion gap de terminationOrdered By: Alfred Baron on 03-21-2023 Anion gap [Moles/Vol] 7.8 mmol/L 6.0-15.0 [facility] Sodium [Moles/volume] in Ser um or PlasmaOrdered By: Alfred Baron on 03-21-2023 Sodium [Moles/Vol] 140 mmol/L 136-145 [facility] Thyroid Stimulating Hormoneo n 03-21-2023 TSH Qn 1.36 m[IU]/L Normal 0.45-5.33 [facility] Comment on above: Result Comment: PERF ORMED BY: [facility] [address] [place] [address] PATHOLOGIST GLOBAL CLIMATE CHANGE ANALYST GABINO ARCOS M.D. Performed By: #### T SH3, BMP, AST #### [facility] [address] Thyrotropin [Units/volume] i n Serum or PlasmaOrdered By: Alfred Baron on 03-21-2023 TSH Qn 1.36 m[IU]/L 0.45-5.33 [facility] Urea nitrogen [Mass/volume] in Serum or PlasmaOrdered By: Alfred Baron on 03-21-2023 Urea nitrogen [Mass/Vol] 18 mg/dL 01-18 [facility] XR chest 2V*on 03-21-2023 XR chest 2V* [facility] [place] [address] [place] [address] XRay Report Signed Patient: Valentín Buckner MR#: [id number] : 1940 Acct:[id number] Age/Sex: 82 / M ADM Date: 03/21/23 Loc: RT Room: Type: [facility] Attending Dr: Alfred Baron DO [...] Nixon Jr., D.OPam03/21/2023 3:22 PM Dictation Location: [place] [address] Transcribed By: [facility] 03/21/23 152 Dictated By: Alex Nixon Jr, DO 03/21/23 152 Signed By: 03/21/23 152 Normal [facility] Office Visit (Cardiology)on 01-03-2023 Follow-up visit Diagnoses/Problems Assessed Bradycardia (427.89) (R00.1) August 2021 Holter average HR 64 on no AVN agents Likely element of SSS (although PAF rates > 100) November 2022 [facility] nocturnal bradycardia, no high-grade heart block. Paroxysmal [...] outside facility May 2021 NSTEMI admit at [facility] May 2021 cardiac cath: pLAD [...] in adult Healthy Weight Tips; Status:Complete; Done: [id number] Patient Instructions Please bring all medicines, vitamins, [...] regarding bradycardia and he completed a 14-day [employer]. Results reviewed including no evidence of high-grade [...] - 200 (more content not included)... Normal raksul Tobacco Screening.on 023 Fall risk assessment a) No falls within the last year [facility] [address] DO Work Phone: Tobacco use status CPHS b) No M P-[facility] [address] DO Work Phone: Cardiovasc Arrhythmia Result son 12-08-2022 Cardiovasc Arrhythmia Results Reason For Visit Event Monitor: VALENTÍN is here for the application of a 30 day event monitor in office., Diagnosis: bradycardia, afib Ordering Physician: Florence Mora NP Enrollment sent to: [employer] Monitor number [id number] applied. Holter monitor printed and placed on [...] atrial fibrillation (427.31) (I48.0) Future Appointments Date/TimeProviderSpeci altySite 01/03/2023 11:00 Florence Sales APRN-[id number] [place] [address] DO 07/20/2023 10:00 Brendon Hennessy DOCardiology[address] [place] 250 DO Signatures Electronically signed by : Rose Green MD; Dec 28 2022 10:28PM EST (Author) Normal raksul Office Visit (Cardiology)on 11-29-2022 Follow-up visit Diagnoses/Problems [...] concerning symptoms May 2021 NSTEMI admit at [facility] Intolerant to plavix and eliquis [...] 100 mg daily. October 2022 presented to [facility] due to dizziness. Seen in [...] day of admit he was at the [email or web address] [place], when he raised up he felt [...] surgery History (more content not included)... Normal raksul Tobacco Screening.on 023 Adult depression screening assessment No [facility] [address] DO Work Phone: Fall risk assessment a) No falls within the last year [facility] [facility] [address] DO Work Phone: Tobacco use status CPHS b) No M [facility] [address] DO Work Phone: Alanine aminotransferase [En zymatic activity/volume] in Serum or PlasmaOrdered By: Pedro Corbett on 10-28-2022 ALT [Catalytic activity/Vol] 16 U/L 7-52 [facility] Albumin [Mass/volume] in Ser um or Plasma by Bromocresol green (BCG) dye binding methoOrdered By: Pedro Corbett on 10-28-2022 Albumin BCG dye [Mass/Vol] 4.0 g/dL 3.5-5.7 [facility] Alkaline phosphatase [Enzyma tic activity/volume] in Serum or PlasmaOrdered By: Pedro Corbett on 10-28-2022 ALP [Catalytic activity/Vol] 66 U/L 34-104 [facility] Aspartate aminotransferase [ Enzymatic activity/volume] in Serum or PlasmaOrdered By: Pedro Corbett on 10-28-2022 AST [Catalytic activity/Vol] 17 U/L 13-39 [facility] Basophils Auto (Bld) [#/Vol] Ordered By: Pedro Corbett on 10-28-2022 Basophils (Bld) [#/Vol] 0.0 10*3/uL 0.0-0.2 [facility] Basophils/100 WBC Auto (Bld) Ordered By: Pedro Corbett on 10-28-2022 Basophils/100 WBC (Bld) 0.4 % . [facility] Bilirubin.total [Mass/volume ] in Serum or PlasmaOrdered By: Pedro Corbett on 10-28-2022 Bilirubin [Mass/Vol] 0.3 mg/dL 0.3-1.0 [facility] Calcium [Mass/volume] in Ser um or PlasmaOrdered By: Pedro Corbett on 10-28-2022 Calcium [Mass/Vol] 8.4 mg/dL 8.6-10.3 [facility] Carbon dioxide, total [Moles /volume] in Serum or PlasmaOrdered By: Pedro Corbett on 10-28-2022 CO2 [Moles/Vol] 26.2 mmol/L 21.0-31.0 [facility] Chloride [Moles/volume] in S ky or PlasmaOrdered By: Pedro Corbett on 10-28-2022 Chloride [Moles/Vol] 106 mmol/L 98-107 [facility] Creatine kinase [Enzymatic a ctivity/volume] in Serum or PlasmaOrdered By: Pedro Corbett on 10-28-2022 CK [Catalytic activity/Vol] 84 U/L 30-223 [facility] Creatinine [Mass/volume] in Serum or PlasmaOrdered By: Pedro Corbett on 10-28-2022 Creatinine [Mass/Vol] 1.20 mg/dL 0.70-1.30 [facility] Eosinophils Auto (Bld) [#/Vo l]Ordered By: Pedro Corbett on 10-28-2022 Eosinophils (Bld) [#/Vol] 0.1 10*3/uL 0.0-0.45 [facility] Eosinophils/100 WBC Auto (Bl d)Ordered By: Pedro Corbett on 10-28-2022 Eosinophils/100 WBC (Bld) 0.9 % . [facility] Erythrocyte distribution wid th Auto (RBC) [Ratio]Ordered By: Pedro Corbett on 10-28-2022 Erythrocyte distribution width (RBC) [Ratio] 19.8 % 12.0-14.8 [facility] Globulin Calc (S) [Mass/Vol] Ordered By: Pedro Corbett on 10-28-2022 Globulin (S) [Mass/Vol] 2.5 g/dL [facility] Glucose [Mass/volume] in Ser um or PlasmaOrdered By: Pedro Corbett on 10-28-2022 Glucose [Mass/Vol] 103 mg/dL 70-100 [facility] Comment on above: ADA recommended refe rence rangeRandom Glucose Reference Range is dependent on time and content of last meal. Glucose of more than 200 mg/dL in a nonstressed, ambulatory subject supports the diagnosis of Diabetes Mellitus. Hematocrit Auto (Bld) [Volum e fraction]Ordered By: Pedro Corbett on 10-28-2022 Hematocrit (Bld) [Volume fraction] 40.4 % 38.8-50.0 [facility] Hemoglobin [Mass/volume] in BloodOrdered By: Pedro Corbett on 10-28-2022 Hemoglobin (Bld) [Mass/Vol] 12.9 g/dL 13.0-17.0 [facility] Leukocytes [#/volume] correc augustine for nucleated erythrocytes in Blood by Automated counOrdered By: Pedro Corbett on 10-28-2022 WBC corrected for nucl RBC Auto (Bld) [#/Vol] 8.9 10*3/uL 4.1-10.5 [facility] Lymphocytes Auto (Bld) [#/Vo l]Ordered By: Pedro Corbett on 10-28-2022 Lymphocytes (Bld) [#/Vol] 2.2 10*3/uL 1.00-4.8 [facility] Lymphocytes/100 WBC Auto (Bl d)Ordered By: Pedro Corbett on 10-28-2022 Lymphocytes/100 WBC (Bld) 24.4 % . [facility] MCH Auto (RBC) [Entitic mass ]Ordered By: Pedro Corbett on 10-28-2022 MCH (RBC) [Entitic mass] 25.3 pg 27.5-35.2 [facility] MCHC Auto (RBC) [Mass/Vol]Or dered By: Pedro Corbett on 10-28-2022 MCHC (RBC) [Mass/Vol] 31.8 g/dL 32.5-35.6 [facility] MCV Auto (RBC) [Entitic vol] Ordered By: Pedro Corbett on 10-28-2022 MCV (RBC) [Entitic vol] 79.6 fL 83.5-101 [facility] Magnesium [Mass/volume] in S ky or PlasmaOrdered By: Trena Pena on 10-28-2022 Magnesium [Mass/Vol] 1.9 mg/dL 1.9-2.7 [facility] Monocyte distribution width [Entitic volume] in Blood by AutomatedOrdered By: Pedro Corbett on 10-28-2022 Monocyte distribution width Auto (Bld) [Entitic vol] 16.55 % 0.00-20.00 [facility] Monocytes Auto (Bld) [#/Vol] Ordered By: Pedro Corbett on 10-28-2022 Monocytes (Bld) [#/Vol] 1.0 10*3/uL 0.0-0.8 [facility] Monocytes/100 WBC Auto (Bld) Ordered By: Pedro Corbett on 10-28-2022 Monocytes/100 WBC (Bld) 11.8 % . [facility] Natriuretic peptide B [Mass/ Vol]Ordered By: Pedro Corbett on 10-28-2022 Natriuretic peptide B (Bld) [Mass/Vol] 148.0 pg/mL 5-100 [facility] Neutrophils Auto (Bld) [#/Vo l]Ordered By: Pedro Corbett on 10-28-2022 Neutrophils (Bld) [#/Vol] 5.6 10*3/uL 1.8-7.7 [facility] Neutrophils/100 WBC Auto (Bl d)Ordered By: Pedro Corbett on 10-28-2022 Neutrophils/100 WBC (Bld) 62.5 % . [facility] No Panel InformationOrdered By: Pedro Corbett on 10-28-2022 Estimated GFR (CKD-EPI) > 60.0 mL/Min [facility] Creatinine Clearance (Chem 53.74 [facility] Nucleated erythrocytes [Pres ence] in Blood by Automated countOrdered By: Pedro Corbett on 10-28-2022 Nucleated RBC Auto Ql (Bld) 0.0 /100{WBC} 0-0.5 [facility] Platelet mean volume Auto (B ld) [Entitic vol]Ordered By: Pedro Corbett on 10-28-2022 Platelet mean volume (Bld) [Entitic vol] 7.8 fL 6.6-10.1 [facility] Platelets Auto (Bld) [#/Vol] Ordered By: Pedro Corbett on 10-28-2022 Platelets (Bld) [#/Vol] 215 10*3/uL 150-450 [facility] Potassium [Moles/volume] in Serum or PlasmaOrdered By: Pedro Corbett on 10-28-2022 Potassium [Moles/Vol] 4.2 mmol/L 3.5-5.1 [facility] Protein [Mass/volume] in Ser um or PlasmaOrdered By: Pedro Corbett on 10-28-2022 Protein [Mass/Vol] 6.5 g/dL 6.4-8.9 [facility] RBC Auto (Bld) [#/Vol]Ordere d By: Pedro Corbett on 10-28-2022 RBC (Bld) [#/Vol] 5.08 10*6/uL 3.90-5.60 [facility] Serum or plasma albumin/glob ulin mass ratioOrdered By: Pedro Corbett on 10-28-2022 Albumin/Globulin [Mass ratio] 1.6 {ratio} [facility] Serum or plasma anion gap de terminationOrdered By: Pedro Corbett on 10-28-2022 Anion gap [Moles/Vol] 11.0 mmol/L 6.0-15.0 [facility] Sodium [Moles/volume] in Ser um or PlasmaOrdered By: Pedro Corbett on 10-28-2022 Sodium [Moles/Vol] 139 mmol/L 136-145 [facility] Thyrotropin [Units/volume] i n Serum or PlasmaOrdered By: Karol Sage on 10-28-2022 TSH Qn 2.15 m[IU]/L 0.45-5.33 [facility] Troponin I.cardiac [Mass/vol ume] in Serum or Plasma by Detection limit <= 0.01 ng/Ordered By: Pedro Corbett on 10-28-2022 Troponin I.cardiac DL <= 0.01 ng/mL [Mass/Vol] 7.4 pg/mL 0.0-20.0 [facility] Urea nitrogen [Mass/volume] in Serum or PlasmaOrdered By: Pedro Corbett on 10-28-2022 Urea nitrogen [Mass/Vol] 23 mg/dL 7-25 [facility] WBC Auto (Bld) [#/Vol]Ordere d By: Pedro Corbett on 10-28-2022 WBC (Bld) [#/Vol] 8.9 10*3/uL 4.1-10.5 [facility] CBC AUTO DIFFon 10-20-2022 BASO # 0.0 103/ul Normal 0.0-0.1 [facility] Comment on above: Performed By: #### C VDTB #### [facility] [address] [place] [address] Dr. Steve Sevilla Basophils/100 WBC (Bld) 0.4 % Normal 0.2-2.0 [facility] Comment on above: Performed By: #### C VDTBH #### [facility] [address] [place] [address] Dr. Steve Sevilla EO # 0.1 103/ul Normal 0.0-0.7 [facility] Comment on above: Performed By: #### C VDTBH #### [facility] [address] [place] [address] Dr. Steve Sevilla Eosinophils/100 WBC (Bld) 1.1 % Normal 0.9-7.0 [facility] Comment on above: Performed By: #### C VDTBH #### [facility] [address] [place] [address] Dr. Steve Sevilla Erythrocyte distribution width (RBC) [Ratio] 18.6 % Critically high 11.0-15.0 [facility] Comment on above: Performed By: #### C VDTBH #### [facility] [address] [place] [address] Dr. Steve Sevilla Hematocrit (Bld) [Volume fraction] 42.9 % Normal 42.0-54.0 [facility] Comment on above: Performed By: #### C VDTBH #### [facility] [address] [place] [address] Dr. Steve Sevilla Hemoglobin (Bld) [Mass/Vol] 13.0 g/dL Critically low 14.0-18.0 [facility] Comment on above: Performed By: #### C VDTBH #### [facility] [address] [place] [address] Dr. Steve Sevilla IG # 0.03 10e3/ul Normal 0.00-0.03 [facility] Comment on above: Performed By: #### C VDTBH #### [facility] [address] [place] [address] Dr. Steve Sevilla IG % 0.3 % Normal 0.0-0.5 [facility] Comment on above: Performed By: #### C VDTBH #### [facility] [address] [place] [address] Dr. Steve Sevilla LYMPH # 2.6 103/ul Normal 1.2-3.8 [facility] Comment on above: Performed By: #### C VDTBH #### [facility] [address] [place] [address] Dr. Steve Sevilla Lymphocytes/100 WBC (Bld) 23.1 % Normal 20.5-60.0 [facility] Comment on above: Performed By: #### C VDTBH #### [facility] [address] [place] [address] Dr. Steve Sevilla MANUAL DIFF REQ NO Normal [facility] Comment on above: Performed By: #### C VDTBH #### [facility] [address] [place] [address] Dr. Steve Sevilla MCH (RBC) [Entitic mass] 25.0 pg Critically low 25.9-34 .0 [facility] Comment on above: Performed By: #### C VDTBH #### [facility] [address] [place] [address] Dr. Steve Sevilla MCHC (RBC) [Mass/Vol] 30.3 g/dL Normal 29.9-35.2 [facility] Comment on above: Performed By: #### C VDTBH #### [facility] [address] [place] [address] Dr. Steve Sevilla MCV (RBC) [Entitic vol] 82.7 fL Normal 80.0-94.0 [facility] Comment on above: Performed By: #### C VDTBH #### [facility] [address] [place] [address] Dr. Steve Sevilla MONO # 1.2 103/ul Critically high 0.3-0.8 [facility] Comment on above: Performed By: #### C VDTBH #### [facility] [address] [place] [address] Dr. Steve Sevilla Monocytes/100 WBC (Bld) 10.6 % Normal 1.7-12.0 [facility] Comment on above: Performed By: #### C VDTBH #### [facility] [address] [place] [address] Dr. Steve Sevilla NEUT # 7.2 103/ul Critically high 1.4-6.5 [facility] Comment on above: Performed By: #### C VDTBH #### [facility] [address] [place] [address] [address] Steve Sevilla Neutrophils/100 WBC (Bld) 64.5 % Normal 43.0-75.0 [facility] Comment on above: Performed By: #### C VDTBH #### [facility] [address] [place] [address] [address] Steve Sevilla Platelet mean volume (Bld) [Entitic vol] 8.9 fL Critically low 9.5-13.5 [facility] Comment on above: Performed By: #### C VDTBH #### [facility] [address] [place] [address] [address] Steve Sevilla PLT 248 103/ul Normal 150-450 [facility] Comment on above: Performed By: #### C VDTBH #### [facility] [address] [place] [address] Dr. Steve Sevilla RBC 5.19 106/ul Normal 4.70-6.10 [facility] Comment on above: Performed By: #### C VDTBH #### [facility] [address] [place] [address] Dr. Steve Sevilla WBC 11.2 103/ul Critically high 4.0-11.0 [facility] Comment on above: Performed By: #### C VDTBH #### [facility] [address] [place] [address] Dr. Steve Sevilla FERRITINon 10-20-2022 Ferritin [Mass/Vol] 12.0 ng/mL Critically low 26.0-388.0 [facility] Comment on above: Performed By: #### F ETIBC, FERR #### [facility] [address] [place] [address] Dr. Steve Sevilla IRON AND TIBCon 10-20-2022 % SATURATION 12.1 % Normal [facility] Comment on above: Performed By: #### F ETIBC, FERR #### [facility] [address] [place] [address] Dr. Steve Sevilla Iron [Mass/Vol] 47.0 ug/dL Critically low 65.0-175.0 [facility] Comment on above: Performed By: #### F ETIBC, FERR #### [facility] [address] [place], [place] [address] Dr. Steve Sevilla TIBC DIRECT 387.0 ug/dL Normal 250.0-450.0 [facility] Comment on above: Performed By: #### F ETIBC, FERR #### [facility] [address] [place], [place] [address] Dr. Steve Sevilla Aspartate aminotransferase [ Enzymatic activity/volume] in Serum or PlasmaOrdered By: Alfred Baron on 10-15-2022 AST [Catalytic activity/Vol] 23 U/L 13-39 [facility] Calcium [Mass/volume] in Ser um or PlasmaOrdered By: Alfred Baron on 10-15-2022 Calcium [Mass/Vol] 8.4 mg/dL 8.6-10.3 [facility] Carbon dioxide, total [Moles /volume] in Serum or PlasmaOrdered By: Alfred Baron on 10-15-2022 CO2 [Moles/Vol] 28.2 mmol/L 21.0-31.0 [facility] Chloride [Moles/volume] in S ky or PlasmaOrdered By: Alfred Baron on 10-15-2022 Chloride [Moles/Vol] 106 mmol/L 98-107 [facility] Creatinine [Mass/volume] in Serum or PlasmaOrdered By: Alfred Baron on 10-15-2022 Creatinine [Mass/Vol] 1.13 mg/dL 0.70-1.30 [facility] Glucose [Mass/volume] in Ser um or PlasmaOrdered By: Alfred Baron on 10-15-2022 Glucose [Mass/Vol] 88 mg/dL 70-100 [facility] Comment on above: ADA recommended refe rence rangeRandom Glucose Reference Range is dependent on time and content of last meal. Glucose of more than 200 mg/dL in a nonstressed, ambulatory subject supports the diagnosis of Diabetes Mellitus. No Panel InformationOrdered By: Alfred Baron on 10-15-2022 Estimated GFR (CKD-EPI) > 60.0 mL/Min [facility] Creatinine Clearance (Chem N/A [facility] No Panel Informationon 10-15 > 60.0 Normal [facility] 250 DO Work Phone: [phone] 10.4\S\10.4 Normal 6.0-15.0 [facility] [place] 250 DO Work Phone: [phone] 8.4\S\8.4 below low threshold 8.6-10.3 [facility] Michael barrios 250 DO Work Phone: [phone] 28.2\S\28.2 Normal 21.0-31.0 [facility] [place] 250 DO Work Phone: [phone] 106\S\106 Normal 98-107 [facility] [place] 250 DO Work Phone: [phone] 4.6\S\4.6 Normal 3.5-5.1 [facility] 250 DO Work Phone: [phone] 140\S\140 Normal 136-145 [facility] 250 DO Work Phone: [phone] 1.13\S\1.13 Normal 0.70-1.30 [facility] Michael barrios 250 DO Work Phone: [phone] 19\S\19 Normal 7-25 [facility] Michael barrios 250 DO Work Phone: [phone] 88\S\88 Normal 70-100 [facility] Michael barrios 250 DO Work Phone: Comment on above: Random Glucose Refer ence Range is dependent on time and content of last meal. Glucose of more than 200 mg/dL in a nonstressed, ambulatory subject supports the diagnosis of Diabetes Mellitus. ADA recommended reference range 23\S\23 Normal 13-39 [facility] 250 DO Work Phone: [phone] 1.66\S\1.66 Normal 0.45-5.33 [facility] [place] 250 DO Work Phone: Comment on above: PERFORMED BY:[facility] LICHA QUICK [id number] MEDICAL DIRECTORGABINO ARCOS M.D. Potassium [Moles/volume] in Serum or PlasmaOrdered By: Alfred Baron on 10-15-2022 Potassium [Moles/Vol] 4.6 mmol/L 3.5-5.1 [facility] Radiologyon 10-15-2022 XR Chest 2 Views Normal -[facility]erged With [facility] [address] DO Work Phone: Serum or plasma anion gap de terminationOrdered By: Alfred Baron on 10-15-2022 Anion gap [Moles/Vol] 10.4 mmol/L 6.0-15.0 [facility] Sodium [Moles/volume] in Ser um or PlasmaOrdered By: Alfred Baron on 10-15-2022 Sodium [Moles/Vol] 140 mmol/L 136-145 [facility] Thyrotropin [Units/volume] i n Serum or PlasmaOrdered By: Alfred Baron on 10-15-2022 TSH Qn 1.66 m[IU]/L 0.45-5.33 [facility] Urea nitrogen [Mass/volume] in Serum or PlasmaOrdered By: Alfred Baron on 10-15-2022 Urea nitrogen [Mass/Vol] 19 mg/dL 7-25 [facility] Office Visit (Cardiology)on 07-15-2022 Follow-up visit Diagnoses/Problems [...] cardiovascular complaints. He status post non-ST elevation [place] May 2021, with a history of ASHD and prior three-vessel PCI in [place]. 1 of those events was for an inferior [place] with revascularization of the RCA. Patient is notably severely allergic to Plavix and Effient. He has no history of stroke or bleeding disorder cancer peripheral vascular disease Has had mild paroxysmal atrial fibrillation, successfully treated with low-dose amiodarone, Eliquis with no bleeding or thromboembolic events recurrence of A. fib Today's ECG reveals sinus bradycardia with a SC interval 266, QT corrected interval 457, and evidence of Q waves inferior [place] indeterminate age. Heart catheterization in May 2021 performed by myself revealed patent LAD and circumflex stents, first OM branch was occluded and treated conservatively. Is otherwise doing well without any angina or recurrent A. fib He is asking about coming off of Eliquis and because of his elevated [id number] score I recommended he stay on Eliquis [...] Signs Recorded: 15Jul2022 10:06AM Heart Rate50, Apical Ychujlne751, LUE, Sitting Qwyumcbrn79, LUE, Sitting Height5 ft 9 in Lacmgm103 lb BMI Xrmyeeporn21.94 kg/m2 BSA Calculated2.05 Tobacco Useb) No PHQ-2 #1. Over the (more content not included)... Normal raksul Tobacco Screening.on 023 Adult depression screening assessment No [facility] [employer] 250 DO Work Phone: Fall risk assessment b) One or more fall s in the last year [facility] [employer] 250 DO Work Phone: [phone] Tobacco use status CPHS b) No M [facility] 250 DO Work Phone: [phone] Creatinine and Glomerular fi ltration rate.predicted panel (S/P/Bld)Ordered By: Alfred Baron on 07-12-2022 Creatinine [Mass/Vol] 1.02 mg/dL 0.64-1.27 [facility] Estimated glomerular filtrat ion rate (GFR) non- AmericanOrdered By: Alfred Baron on 07-12-2022 GFR/1.73 sq M.predicted among non-blacks MDRD (S/P/Bld) [Vol rate/Area] > 60 mL/Min [facility] No Panel InformationOrdered By: Alfred Baron on 07-12-2022 Estimated GFR () > 60 mL/Min [facility] Comment on above: GFR estimated refere nce range: According to KDOQI guidelines, <60 ml/min/1.73m2 is sufficient to diagnose a patient with chronic kidney disease. Pharmacy Creatinine Clearance (Chem N/A [facility] No Panel Informationon 07-12 10.7\S\10.7 Normal 6.0-15.0 [facility] 250 DO Work Phone: [phone] 9.0\S\9.0 Normal 8.2-10.2 [facility] 250 DO Work Phone: [phone] 26.7\S\26.7 Normal 22.0-30.0 [facility] 250 DO Work Phone: 106\S\106 Normal 95-114 [facility] 250 DO Work Phone: 4.4\S\4.4 Normal 3.5-5.1 [facility] 250 DO Work Phone: 139\S\139 Normal 136-146 [facility] 250 DO Work Phone: [phone] > 60 Normal [facility] 250 DO Work Phone: Comment on above: GFR estimated refere nce range: According to KDOQI guidelines, <60 ml/min/1.73m2 is sufficient to diagnose a patient with chronic kidney disease. 1.02\S\1.02 Normal 0.64-1.27 [facility] denis 250 DO Work Phone: [phone] 18\S\18 Normal 9-23 [facility] 250 DO Work Phone: [phone] 86\S\86 Normal 70-100 [facility] 250 DO Work Phone: Comment on above: Random Glucose Refer ence Range is dependent on time and content of last meal. Glucose of more than 200 mg/dL in a nonstressed, ambulatory subject supports the diagnosis of Diabetes Mellitus. ADA recommended reference range 22\S\22 Normal 10-42 [facility] 250 DO Work Phone: 1.82\S\1.82 Normal 0.45-5.33 [facility] 250 DO Work Phone: Comment on above: PERFORMED BY:[place] [address] [place], [place] [id number] MEDICAL DIRECTORGABINO ARCOS M.D. Radiologyon 07-12-2022 XR Chest 2 Views Normal [facility] 250 DO Work Phone: Serum or plasma anion gap de terminationOrdered By: Alfred Baron on 07-12-2022 Anion gap [Moles/Vol] 10.7 mmol/L 6.0-15.0 [facility] Serum or plasma aspartate am inotransferase measurement (enzymatic activity/volume)Ordered By: Alfred Baron on 07-12-2022 AST [Catalytic activity/Vol] 22 U/L 10-42 [facility] Serum or plasma calcium sean urement (mass/volume)Ordered By: Alfred Baron on 07-12-2022 Calcium [Mass/Vol] 9.0 mg/dL 8.2-10.2 [facility] Serum or plasma chloride nicolasa surement (moles/volume)Ordered By: Alfred Baron on 07-12-2022 Chloride [Moles/Vol] 106 mmol/L 95-114 [facility] Serum or plasma glucose sean urement (mass/volume)Ordered By: Alfred Baron on 07-12-2022 Glucose [Mass/Vol] 86 mg/dL 70-100 [facility] Comment on above: ADA recommended refe rence rangeRandom Glucose Reference Range is dependent on time and content of last meal. Glucose of more than 200 mg/dL in a nonstressed, ambulatory subject supports the diagnosis of Diabetes Mellitus. Serum or plasma potassium me asurement (moles/volume)Ordered By: Alfred Baron on 07-12-2022 Potassium [Moles/Vol] 4.4 mmol/L 3.5-5.1 [facility] Serum or plasma sodium measu rement (moles/volume)Ordered By: Alfred Baron on 07-12-2022 Sodium [Moles/Vol] 139 mmol/L 136-146 [facility] Serum or plasma total carbon dioxide measurement (moles/volume)Ordered By: Alfred Baron on 07-12-2022 CO2 [Moles/Vol] 26.7 mmol/L 22.0-30.0 [facility] Serum or plasma urea nitroge n measurement (mass/volume)Ordered By: Alfred Baron on 07-12-2022 Urea nitrogen [Mass/Vol] 18 mg/dL 9-23 [facility] TSH DL <= 0.005 mIU/L QnOrde red By: Alfred Baron on 07-12-2022 TSH Qn 1.82 m[IU]/L 0.45-5.33 [facility] Covid-19 PCR (CVDTBH)on 05-28 SARS-CoV-2 (COVID-19) RNA LO+probe Ql (Unsp spec) Not detected Normal NOT DETECTED [facility] Comment on above: Result Comment: This test is not yet approved or cleared by the [place] FDA. When there are no FDA-approved or cleared tests available, and other criteria are met, FDA can make tests available under an emergency access mechanism called an Emergency Use Authorization (EUA). The EUA for this test is supported by the [place] of Health and Human Service's (HHS's) declaration [...] SARS-CoV-2. Performed By: #### C VDTBH #### [facility] [address] [place] [address] Dr. Steve Sevilla INFLUENZA A AND B AGon 06-15 INFLUBNEGH SEE BELOW Normal [facility] Comment on above: Result Comment: Nega tive for Flu B protein antigen. Infection due to Flu B cannot be ruled out. Flu B antigen in the sample may be below the detection limit of the test. Performed By: #### C VDTBH #### [facility] [address] [place] [address] Dr. Steve Sevilla INFLUENZA A AG Positive Abnormal NEGATIVE SEE COMMENT [facility] Comment on above: Performed By: #### C VDTBH #### [facility] [address] [place] [address] Dr. Steve Sevilla INFLUENZA B AG Negative Normal NEGATIVE SEE COMMENT [facility] Comment on above: Performed By: #### C VDTBH #### [facility] [address] [place] [address] Dr. Steve Sevilla INFLUPOSH SEE BELOW Normal [facility] Comment on above: Result Comment: NOTE : Live attenuated influenzae vaccine viruses can cause a positive result for a rapid influenza diagnostic test if administered up to 7 days prior to rapid testing. Performed By: #### C VDTBH #### [facility] [address] [place] [address] Dr. Steve Sevilla INTERNAL CONTROLS Within Normal Limits Normal Wi thin Normal Limits [facility] Comment on above: Performed By: #### C VDTBH #### [facility] [address] [place] [address] Dr. Steve Sevilla CBC AUTO DIFFon 04-20-2022 BASO # 0.0 103/ul Normal 0.0-0.1 [facility] Comment on above: Performed By: #### C BC #### [facility] [address] [place] [address] Dr. Steve Sevilla Basophils/100 WBC (Bld) 0.4 % Normal 0.2-2.0 [facility] Comment on above: Performed By: #### C BC #### [facility] [address] [place] [address] Dr. Steve Sevilla EO # 0.1 103/ul Normal 0.0-0.7 [facility] Comment on above: Performed By: #### C BC #### [facility] [address] [place] [address] Dr. Steve Sevilla Eosinophils/100 WBC (Bld) 1.5 % Normal 0.9-7.0 [facility] Comment on above: Performed By: #### C BC #### [facility] [address] [place] [address] Dr. Steve Sevilla Erythrocyte distribution width (RBC) [Ratio] 16.5 % Critically high 11.0-15.0 [facility] Comment on above: Performed By: #### C BC #### [facility] [address] [place] [address] Dr. Steve Sevilla Hematocrit (Bld) [Volume fraction] 43.1 % Normal 42.0-54.0 [facility] Comment on above: Performed By: #### C BC #### [facility] [address] [place] [address] Dr. Steve Sevilla Hemoglobin (Bld) [Mass/Vol] 13.3 g/dL Critically low 14.0-18.0 [facility] Comment on above: Performed By: #### C BC #### [facility] [address] [place] [address] Dr. Steve Sevilla IG # 0.02 10e3/ul Normal 0.00-0.03 [facility] Comment on above: Performed By: #### C BC #### [facility] [address] [place] [address] Dr. Steve Sevilla IG % 0.2 % Normal 0.0-0.5 [facility] Comment on above: Performed By: #### C BC #### [facility] [address] [place] [address] Dr. Steve Sevilla LYMPH # 2.6 103/ul Normal 1.2-3.8 [facility] Comment on above: Performed By: #### C BC #### [facility] [address] [place] [address] Dr. Steve Sevilla Lymphocytes/100 WBC (Bld) 27.8 % Normal 20.5-60.0 [facility] Comment on above: Performed By: #### C BC #### [facility] [address] [place] [address] Dr. Steve Sevilla MANUAL DIFF REQ NO Normal [facility] Comment on above: Performed By: #### C BC #### [facility] [address] [place] [address] Dr. Steve Sevilla MCH (RBC) [Entitic mass] 27.3 pg Normal 25.9-34.0 [facility] Comment on above: Performed By: #### C BC #### [facility] [address] [place] [address] Dr. Steve Sevilla MCHC (RBC) [Mass/Vol] 30.9 g/dL Normal 29.9-35.2 [facility] Comment on above: Performed By: #### C BC #### [facility] [address] [place] [address] Dr. Steve Sevilla MCV (RBC) [Entitic vol] 88.3 fL Normal 80.0-94.0 [facility] Comment on above: Performed By: #### C BC #### [facility] [address] [place] [address] Dr. Steve Sevilla MONO # 1.5 103/ul Critically high 0.3-0.8 [facility] Comment on above: Performed By: #### C BC #### [facility] [address] [place] [address] Dr. Steve Sevilla Monocytes/100 WBC (Bld) 15.8 % Critically high 1.7-12. 0 [facility] Comment on above: Performed By: #### C BC #### [facility] [address] [place] [address] Dr. Steve Sevilla NEUT # 5.0 103/ul Normal 1.4-6.5 [facility] Comment on above: Performed By: #### C BC #### [facility] [address] [place] [address] Dr. Steve Sevilla Neutrophils/100 WBC (Bld) 54.3 % Normal 43.0-75.0 [facility] Comment on above: Performed By: #### C BC #### [facility] [address] [place] [address] Dr. Steve Sevilla Platelet mean volume (Bld) [Entitic vol] 9.2 fL Critically low 9.5-13.5 [facility] Comment on above: Performed By: #### C BC #### [facility] [address] [place] [address] Dr. Steve Sevilla PLT 239 103/ul Normal 150-450 [facility] Comment on above: Performed By: #### C BC #### [facility] [address] [place] [address] Dr. Steve Sevilla RBC 4.88 106/ul Normal 4.70-6.10 [facility] Comment on above: Performed By: #### C BC #### [facility] [address] [place] [address] Dr. Steve Sevilla WBC 9.3 103/ul Normal 4.0-11.0 [facility] Comment on above: Performed By: #### C BC #### [facility] [address] [place] [address] Dr. Steve Sevilla [facility]27 SARS-CoV-2 (COVID-19) RNA LO+probe Ql (Unsp spec) Not detected Normal NOT DETECTED [facility] Comment on above: Result Comment: This test is not yet approved or cleared by the [place] FDA. When there are no FDA-approved or cleared tests available, and other criteria are met, FDA can make tests available under an emergency access mechanism called an Emergency Use Authorization (EUA). The EUA for this test is supported by the [place] of Health and Human Service's (HHS's) declaration [...] consistent with SARS-CoV-2. Performed By: #### C [facility] #### [facility] [address] [place] [address] Dr. Steve Sevilla Creatinine and Glomerular fi ltration rate.predicted panel (S/P/Bld)Ordered By: Alfred Baron on 03-24-2022 Creatinine [Mass/Vol] 1.17 mg/dL 0.64-1.27 [facility] Estimated glomerular filtrat ion rate (GFR) non- AmericanOrdered By: Alfred Baron on 03-24-2022 GFR/1.73 sq M.predicted among non-blacks MDRD (S/P/Bld) [Vol rate/Area] 60 mL/Min [facility] No Panel InformationOrdered By: Alfred Baron on 03-24-2022 Estimated GFR () > 60 mL/Min [facility] Comment on above: GFR estimated refere nce range: According to KDOQI guidelines, <60 ml/min/1.73m2 is sufficient to diagnose a patient with chronic kidney disease. Pharmacy Creatinine Clearance (Chem N/A [facility] Serum or plasma anion gap de terminationOrdered By: Alfred Baron on 03-24-2022 Anion gap [Moles/Vol] 13.5 mmol/L 6.0-15.0 [facility] Serum or plasma aspartate am inotransferase measurement (enzymatic activity/volume)Ordered By: Alfred Baron on 03-24-2022 AST [Catalytic activity/Vol] 19 U/L 10-42 [facility] Serum or plasma calcium sean urement (mass/volume)Ordered By: Alfred Baron on 03-24-2022 Calcium [Mass/Vol] 8.7 mg/dL 8.2-10.2 [facility] Serum or plasma chloride nicolasa surement (moles/volume)Ordered By: Alfred Baron on 03-24-2022 Chloride [Moles/Vol] 100 mmol/L 95-114 [facility] Serum or plasma glucose sean urement (mass/volume)Ordered By: Alfred Baron on 03-24-2022 Glucose [Mass/Vol] 147 mg/dL 70-100 [facility] Comment on above: ADA recommended refe rence rangeRandom Glucose Reference Range is dependent on time and content of last meal. Glucose of more than 200 mg/dL in a nonstressed, ambulatory subject supports the diagnosis of Diabetes Mellitus. Serum or plasma potassium me asurement (moles/volume)Ordered By: Alfred Baron on 03-24-2022 Potassium [Moles/Vol] 4.2 mmol/L 3.5-5.1 [facility] Serum or plasma sodium measu rement (moles/volume)Ordered By: Alfred Baron on 03-24-2022 Sodium [Moles/Vol] 138 mmol/L 136-146 [facility] Serum or plasma total carbon dioxide measurement (moles/volume)Ordered By: Alfred Baron on 03-24-2022 CO2 [Moles/Vol] 28.7 mmol/L 22.0-30.0 [facility] Serum or plasma urea nitroge n measurement (mass/volume)Ordered By: Alfred Baron on 03-24-2022 Urea nitrogen [Mass/Vol] 17 mg/dL 9-23 [facility] TSH DL <= 0.005 mIU/L QnOrde red By: Alfred Baron on 03-24-2022 TSH Qn 2.20 m[IU]/L 0.45-5.33 [facility] MRI LSPINE WO CONon 01-09-20 MRI LSPINE [...] by: KIKA CHO Date: 2022-01-07 22:16 Normal [facility] Tobacco Screening.on 022 Fall risk assessment a) No falls within the last year [facility] [place] 250 DO Work Phone: Tobacco use status CPHS b) No M [facility] [place] 250 DO Work Phone: XR LSPINE MIN 4 VIEWSon 07- XR LSPINE MIN 4 VIEWS EXAMINATION: XR [...] by: LYNDA BYNUM Date: 2021-12-30 12:12 Normal [facility] Tobacco Screening.on Fall risk assessment a) No falls within the last year [facility] 250 DO Work Phone: [phone] Tobacco use status CPHS b) No [facility] 250 DO Work Phone: [phone] Tobacco Screening.on Adult depression screening assessment No [facility] 250 DO Work Phone: [phone] Tobacco use status CP b) No M [facility] 250 DO Work Phone: [phone] PHQ-2 [facility] 09-02-2021 Adult depression screening assessment No [facility] 250 DO Work Phone: [phone] Tobacco Screening.on Fall risk assessment a) No falls within the last year [facility] 250 DO Work Phone: [phone] Tobacco use status CPHS b) No [facility] 250 DO Work Phone: [phone] Tobacco Screening.on Fall risk assessment a) No falls within the last year [facility] 250 DO Work Phone: [phone] Tobacco use status CPHS b) No [facility] 250 DO Work Phone: [phone] BASIC METABOLIC PANELon 04-27 Calcium mass conc 8.5 mg/dL Low 8.6-10.3 [facility] Comment on above: Order Comment: No: D o not add to previous draw Performed By: #### 3 9565, 66771 ####[facility] [place] [address], [facility] Chloride molar conc 107 mmol/L Normal 98-107 [facility] Comment on above: Order Comment: No: D o not add to previous draw Performed By: #### 3 0, 10906 ####[facility] [place] [address], [place] CO2 molar conc 29 mmol/L Normal 21-31 [facility] Comment on above: Order Comment: No: D o not add to previous draw Performed By: #### 3 0, 67692 ####[facility] [place] [address], [facility] Creatinine mass conc 0.89 mg/dL Normal 0.70-1.30 [facility] Comment on above: Order Comment: No: D o not add to previous draw Performed By: #### 3 5199, 81256 ####[facility] [place] [address], [place] GFR/1.73 sq M predicted among blacks MDRD vol rate/area (S/P/Bld) mL/min/{1.73_m2} Normal >60 [facility] Comment on above: Order Comment: No: D o not add to previous draw Result Comment: Calc ulation may not be valid for patients over 70 years Performed By: #### 3 5199, 22101 ####[facility] [place] [address], [place] GFR/1.73 sq M predicted among non-blacks MDRD vol rate/area (S/P/Bld) mL/min/{1.73_m2} Normal >60 [facility] Comment on above: Order Comment: No: D o not add to previous draw Result Comment: Calc ulation may not be valid for patients over 70 years Performed By: #### 3 5199, 98504 ####[facility] [place] [address], [place] Glucose mass conc 95 mg/dL Normal 70-100 [facility] Comment on above: Order Comment: No: D o not add to previous draw Performed By: #### 3 0, 04815 ####[facility] [place] [address], [facility] Potassium molar conc 3.8 mmol/L Normal 3.5-5.1 [facility] Comment on above: Order Comment: No: D o not add to previous draw Performed By: #### 3 0, 43269 ####[facility] [place] [address], [facility] Sodium molar conc 141 mmol/L Normal 136-145 [facility] Comment on above: Order Comment: No: D o not add to previous draw Performed By: #### 3 5199, 81472 ####[facility] [place] [address], [facility] Urea nitrogen mass conc 19 mg/dL Normal 7-25 T [facility] Comment on above: Order Comment: No: D o not add to previous draw Performed By: #### 3 0, 51847 ####[facility] [facility].[address] CBC COMPLETE BLOOD COUNTon 07-10-2017 Erythrocyte distribution width Auto Ratio (RBC) 13.2 % Normal 11.5-15.0 [facility] Comment on above: Order Comment: No: D o not add to previous draw Performed By: #### 5 0608 ####[facility] [facility] [place] [address], [facility] Hematocrit Auto Volume Fraction (Bld) 44.5 % Normal 39.0-50.0 [facility] Comment on above: Order Comment: No: D o not add to previous draw Performed By: #### 5 0608 ####[facility] [place] [address], [facility] Hemoglobin mass conc (Bld) 15.0 g/dL Normal 13.0-17.0 [facility] Comment on above: Order Comment: No: D o not add to previous draw Performed By: #### 5 0608 ####[facility] MCH Auto Entitic mass (RBC) 31.1 pg Normal 27.0-33.0 [facility] Comment on above: Order Comment: No: D o not add to previous draw Performed By: #### 5 0608 ####[facility] MCHC Auto mass conc (RBC) 33.7 g/dL Normal 32.0-35.0 [facility] Comment on above: Order Comment: No: D o not add to previous draw Performed By: #### 5 0608 ####[facility] MCV Auto Entitic volume (RBC) 92.1 fL Normal 82.0-98.0 [facility] Comment on above: Order Comment: No: D o not add to previous draw Performed By: #### 5 0608 ####[place] [id number] Nucleated RBC/100 WBC Ratio (Bld) 0 % Normal 0-0 [facility] Comment on above: Order Comment: No: D o not add to previous draw Performed By: #### 5 0608 ####[facility] PLAT CNT 179 10*3/uL Normal 150-400 [facility] Comment on above: Order Comment: No: D o not add to previous draw Performed By: #### 5 0608 ####[facility] [place] [address] RBC Auto #/vol (Bld) 4.83 10*6/uL Normal 4.20-5.70 [facility] Comment on above: Order Comment: No: D o not add to previous draw Performed By: #### 5 0608 ####[facility] WBC Auto #/vol (Bld) 7.52 10*3/uL Normal 4.00-10.60 [facility] Comment on above: Order Comment: No: D o not add to previous draw Performed By: #### 5 0608 ####[facility] History and Physicalon 05-10 History and Physical [id number] Valent[facility] Buckner Admitted: 05/09/2018 Date of : 1940 Attending Physician: Niki Ross MD Room #: 3CD [id number] Discharge Date: HISTORY AND PHYSICALHISTORY OF PRESENT ILLNESS: The patient is a 77[facility] was concern for unstable [...] had a brother in the 40s with [place].REVIEW OF SYSTEMS: Again, mostly the 2 things [...] depressedor suicidal. SKIN: Intact.LABORATORY DATA: Again at [facility], the patient had EKG, whichshowed sinus rhythm. [...] 05/09/2018/09:16 P/Niki Ross MDDate Trans: 05/10/2018 05:14 [id number] Normal [facility] TROPONIN-Ion 05-10-2018 Troponin I.cardiac mass conc 0.01 ng/mL Normal 0.00-0.04 [facility] Comment on above: Order Comment: No: D o not add to previous draw Result Comment: REFE RENCE RANGES: 0.00 - 0.04 ng/ml NORMAL 0.05 - 0.50 ng/ml INDETERMINATE > 0.50 ng/ml CONSISTENT WITH AN M.I. Performed By: #### 3 5200, 98333 ####[facility] [facility].[address] Troponin I.cardiac mass conc 0.01 ng/mL Normal 0.00-0.04 [facility] Comment on above: Order Comment: No: D o not add to previous draw Result Comment: REFE RENCE RANGES: 0.00 - 0.04 ng/ml NORMAL 0.05 - 0.50 ng/ml INDETERMINATE > 0.50 ng/ml CONSISTENT WITH AN M.I. Performed By: #### [id number] ####[facility] [facility] [place] [address], [facility] TROPONIN-Ion 05-09-2018 Troponin I.cardiac mass conc 0.00 ng/mL Normal 0.00-0.04 [facility] Comment on above: Order Comment: No: D o not add to previous draw Result Comment: REFE RENCE RANGES: 0.00 - 0.14 ng/ml NEGATIVE 0.15 - 0.25 ng/ml INDETERMINATE > 0.25 ng/ml INDICATIVE OF AN M.I. Performed By: #### [id number] ####[facility]ANCIA.[address] Vital Signs Date Time Vital Sign Value Performing Clinician Facility 07-24-2024 14:15-0500 Body mass index (BMI) [Ratio] 29.24 kg/m2 Brendon Baron DO Work Phone: [facility] 07-24-2024 14:15-0500 Body weight 89.81 kg Brendon Baron DO Work Phone: [facility] 07-24-2024 14:15-0500 Diastolic blood pressure 62 mm[Hg] Brendon Baron DO Work Phone: [facility] 07-24-2024 14:15-0500 Heart rate 54 /min Brendon Baron DO Work Phone: [facility] 07-24-2024 14:15-0500 Systolic blood pressure 110 mm[Hg] Brendon Baron DO Work Phone: [facility] 07-23-2024 13:06-0500 Body height 175.3 cm Irving Goodwojciech Work Phone: [facility] 07-23-2024 13:06-0500 Body mass index (BMI) [Ratio] 29.24 kg/m2 Irving Fonseca DO Work Phone: [facility] 07-23-2024 13:06-0500 Body weight 89.81 kg Irving Fonseca DO Work Phone: [facility] 07-19-2024 14:07-0500 Diastolic blood pressure 88 mm[Hg] Pedro Wagner MD Work Phone: [facility] 07-19-2024 14:07-0500 Systolic blood pressure 136 mm[Hg] Pedro Wagner MD Work Phone: [facility] 07-19-2024 11:35-0500 Body height 175.26 cm [facility] 07-19-2024 11:35-0500 Body mass index (BMI) [Ratio] 28.8 kg/m2 [facility] 07-19-2024 11:35-0500 Body weight 88.56 kg [facility] 07-19-2024 11:35-0500 Diastolic blood pressure 86 mm[Hg] [facility] 07-19-2024 11:35-0500 Heart rate 62 /min [facility] 07-19-2024 11:35-0500 Respiratory rate 12 /min [facility] 07-19-2024 11:35-0500 Systolic blood pressure 126 mm[Hg] [facility] 07-10-2024 14:07-0500 Body height 175.26 cm [facility] 07-10-2024 14:07-0500 Body mass index (BMI) [Ratio] 29.1 kg/m2 [facility] 07-10-2024 14:07-0500 Body weight 89.58 kg [facility] 07-10-2024 14:07-0500 Diastolic blood pressure 77 mm[Hg] [facility] 07-10-2024 14:07-0500 Heart rate 59 /min [facility] 07-10-2024 14:07-0500 Respiratory rate 12 /min [facility] 07-10-2024 14:07-0500 Systolic blood pressure 153 mm[Hg] [facility] 05-17-2024 08:31-0500 Body height 175.26 cm [facility] 05-17-2024 08:31-0500 Body mass index (BMI) [Ratio] 29.4 kg/m2 [facility] 05-17-2024 08:31-0500 Body weight 90.43 kg [facility] 05-17-2024 08:31-0500 Diastolic blood pressure 81 mm[Hg] [facility] 05-17-2024 08:31-0500 Heart rate 50 /min [facility] 05-17-2024 08:31-0500 Respiratory rate 12 /min [facility] 05-17-2024 08:31-0500 Systolic blood pressure 153 mm[Hg] [facility] 03-19-2024 11:28-0400 Body height 175.26 cm [facility] 03-19-2024 11:28-0400 Body mass index (BMI) [Ratio] 29 kg/m2 [facility] 03-19-2024 11:28-0400 Body weight 89.35 kg [facility] 03-19-2024 11:28-0400 Diastolic blood pressure 78 mm[Hg] [facility] 03-19-2024 11:28-0400 Heart rate 55 /min [facility] 03-19-2024 11:28-0400 SaO2% (BldA) [Mass fraction] 96 % [facility] 03-19-2024 11:28-0400 Systolic blood pressure 136 mm[Hg] [facility] 02-02-2024 11:24-0400 Body height 175.26 cm MD Miriam Juarez Work Phone: [facility] 02-02-2024 11:24-0400 Body mass index (BMI) [Ratio] 28.8 kg/m2 MD Miriam Juarez Work Phone: [facility] 02-02-2024 11:24-0400 Body weight 88.45 kg MD Miriam Juarez Work Phone: [facility] 01-02-2024 13:25-0400 Diastolic blood pressure 82 mm[Hg] Radha [address] [place] [address] 01-02-2024 13:25-0400 Heart rate 49 /min Radha [address] [place] [address] 01-02-2024 13:25-0400 Systolic blood pressure 122 mm[Hg] Radha [address] [place] [address] 12-28-2023 10:27-0400 Body height 175.3 cm Brendon Baron DO Work Phone: [facility] 12-28-2023 10:27-0400 Body mass index (BMI) [Ratio] 28.8 kg/m2 Brendon Baron DO Work Phone: [facility] 12-28-2023 10:27-0400 Body weight 88.45 kg Brendon Baron DO Work Phone: [facility] 12-28-2023 10:27-0400 Diastolic blood pressure 80 mm[Hg] Brendon Baron DO Work Phone: [facility] 12-28-2023 10:27-0400 Heart rate 48 /min Brendon Baron DO Work Phone: [facility] 12-28-2023 10:27-0400 Systolic blood pressure 136 mm[Hg] Brendon Baron DO Work Phone: [facility] 11-15-2023 11:30-0400 Body height 175.26 cm DO Irving Ball Work Phone: [facility] 11-15-2023 11:30-0400 Body mass index (BMI) [Ratio] 29.2 kg/m2 DO Irving Ball Work Phone: [facility] 11-15-2023 11:30-0400 Body weight 89.81 kg DO Ivring Ball Work Phone: [facility] 11-15-2023 11:30-0400 Diastolic blood pressure 73 mm[Hg] DO Irving Ball Work Phone: [facility] 11-15-2023 11:30-0400 Heart rate 56 /min DO Irving Ball Work Phone: [facility] 11-15-2023 11:30-0400 Respiratory rate 12 /min DO Irving Ball Work Phone: [facility] 11-15-2023 11:30-0400 Systolic blood pressure 125 mm[Hg] DO Irving Ball Work Phone: [facility] 10-26-2023 10:24-0400 Diastolic blood pressure 75 mm[Hg] DO Irving Ball Work Phone: [facility] 10-26-2023 10:24-0400 Heart rate 43 /min DO Irving Ball Work Phone: [facility] 10-26-2023 10:24-0400 Respiratory rate 18 /min DO Irving Ball Work Phone: [facility] 10-26-2023 10:24-0400 SaO2% (BldA) [Mass fraction] 96 % DO Irving Ball Work Phone: [facility] 10-26-2023 10:24-0400 Systolic blood pressure 131 mm[Hg] DO Irving Ball Work Phone: [facility] 10-26-2023 08:35-0400 Body height 175.26 cm DO Irving Ball Work Phone: [facility] 10-26-2023 08:35-0400 Body weight 89.35 kg DO Irving Ball Work Phone: [facility] 10-17-2023 14:27-0400 Body height 175.26 cm DO Irving Ball Work Phone: [facility] 10-17-2023 14:27-0400 Body mass index (BMI) [Ratio] 23.1 kg/m2 DO Irving Ball Work Phone: [facility] 10-17-2023 14:27-0400 Body weight 71 kg DO Irving Ball Work Phone: [facility] 09-23-2023 11:12-0400 Body height 175.26 cm DO Irving Ball Work Phone: [facility] 09-23-2023 11:12-0400 Body mass index (BMI) [Ratio] 29.5 kg/m2 DO Irving Ball Work Phone: [facility] 09-23-2023 11:12-0400 Body weight 90.71 kg DO Irving Ball Work Phone: [facility] 09-23-2023 11:12-0400 Diastolic blood pressure 75 mm[Hg] DO Irving Ball Work Phone: [facility] 09-23-2023 11:12-0400 Heart rate 53 /min DO Irving Ball Work Phone: [facility] 09-23-2023 11:12-0400 Respiratory rate 12 /min DO Irving Ball Work Phone: [facility] 09-23-2023 11:12-0400 Systolic blood pressure 165 mm[Hg] DO Irving Ball Work Phone: [facility] 09-14-2023 09:27-0400 Body height 175.26 cm DO Irving Ball Work Phone: [facility] 09-14-2023 09:27-0400 Body mass index (BMI) [Ratio] 30 kg/m2 DO Irving Ball Work Phone: [facility] 09-14-2023 09:27-0400 Body weight 92.24 kg DO Irving Ball Work Phone: [facility] 09-14-2023 09:27-0400 Diastolic blood pressure 75 mm[Hg] DO Irving Ball Work Phone: [facility] 09-14-2023 09:27-0400 Heart rate 67 /min DO Irving Ball Work Phone: [facility] 09-14-2023 09:27-0400 Respiratory rate 16 /min DO Irving Ball Work Phone: [facility] 09-14-2023 09:27-0400 Systolic blood pressure 134 mm[Hg] DO Irving Ball Work Phone: [facility] 08-04-2023 11:00-0500 Body height 175.26 cm Irving Ball Other [facility] [employer] Other 08-04-2023 11:00-0500 Body mass index (BMI) [Ratio] 29.89 kg/m2 Irving Ball Other [facility] [employer] Other 08-04-2023 11:00-0500 Body weight 91.81 kg Irving Ball Other [facility] [employer] Other 08-04-2023 11:00-0500 Diastolic blood pressure 53 mm[Hg] Irving Ball Other [employer] Other 08-04-2023 11:00-0500 Respiratory rate 12 /min Irving Ball Other [employer] Other 08-04-2023 11:00-0500 Systolic blood pressure 132 mm[Hg] Irving Ball Other [employer] Other 07-25-2023 13:04-0500 Body height 175.3 cm Brendon Baron DO Work Phone: [facility] 07-25-2023 13:04-0500 Body mass index (BMI) [Ratio] 29.98 kg/m2 Brendon Baron DO Work Phone: [facility] 07-25-2023 13:04-0500 Body weight 92.08 kg Brendon Baron DO Work Phone: [facility] 07-25-2023 13:04-0500 Diastolic blood pressure 70 mm[Hg] Brendon Baron DO Work Phone: [facility] 07-25-2023 13:04-0500 Heart rate 44 /min Brendon Baron DO Work Phone: [facility] 07-25-2023 13:04-0500 Systolic blood pressure 102 mm[Hg] Brendon Baron DO Work Phone: [facility] 05-13-2023 11:15-0500 Body height 175.26 cm Irving Ball Other [employer] Other 05-13-2023 11:15-0500 Body mass index (BMI) [Ratio] 29.15 kg/m2 Irving Ball Other [employer] Other 05-13-2023 11:15-0500 Body weight 89.54 kg Irving Ball Other [employer] Other 05-13-2023 11:15-0500 Diastolic blood pressure 62 mm[Hg] Irving Ball Other [employer] Other 05-13-2023 11:15-0500 Respiratory rate 12 /min Irving Ball Other [employer] Other 05-13-2023 11:15-0500 Systolic blood pressure 114 mm[Hg] Irving Ball Other [employer] Other 05-04-2023 11:30-0500 Body height 175.26 cm Irving Ball Other [employer] Other 05-04-2023 11:30-0500 Body mass index (BMI) [Ratio] 29.12 kg/m2 Irving Ball Other [employer] Other 05-04-2023 11:30-0500 Body weight 89.45 kg Irving Ball Other [employer] Other 05-04-2023 11:30-0500 Diastolic blood pressure 65 mm[Hg] Irving Ball Other [employer] Other 05-04-2023 11:30-0500 Respiratory rate 12 /min Irving Ball Other [employer] Other 05-04-2023 11:30-0500 Systolic blood pressure 124 mm[Hg] Irving Ball Other [employer] Other 04-21-2023 11:11-0400 Diastolic blood pressure 70 mm[Hg] DO Irving Ball Work Phone: [facility] 04-21-2023 11:11-0400 Heart rate 51 /min DO Irving Ball Work Phone: [facility] 04-21-2023 11:11-0400 Respiratory rate 16 /min DO Irving Ball Work Phone: [facility] 04-21-2023 11:11-0400 SaO2% (BldA) [Mass fraction] 95 % DO Irving Ball Work Phone: [facility] 04-21-2023 11:11-0400 Systolic blood pressure 133 mm[Hg] DO Irving Ball Work Phone: [facility] 04-21-2023 08:03-0400 Body height 175.26 cm DO Irving Ball Work Phone: [facility] 04-21-2023 08:03-0400 Body temperature 98.2 [degF] DO Irving Ball Work Phone: [facility] 04-21-2023 08:03-0400 Body weight 86.18 kg DO Irving Ball Work Phone: [facility] 03-01-2023 15:30-0400 Body height 175.26 cm Markell Garza Other [employer] Other 03-01-2023 15:30-0400 Body mass index (BMI) [Ratio] 28.94 kg/m2 Markell Garza Other [employer] Other 03-01-2023 15:30-0400 Body weight 88.91 kg Markell Garza Other [employer] Other 03-01-2023 15:30-0400 Diastolic blood pressure 78 mm[Hg] Markell Garza Other [employer] Other 03-01-2023 15:30-0400 Systolic blood pressure 130 mm[Hg] Markell Garza Other [employer] Other 02-01-2023 11:30-0400 Body height 175.26 cm Irving Ball Other [employer] Other 02-01-2023 11:30-0400 Body mass index (BMI) [Ratio] 28.91 kg/m2 Irving Ball Other [employer] Other 02-01-2023 11:30-0400 Body weight 88.81 kg Irving Ball Other [employer] Other 02-01-2023 11:30-0400 Diastolic blood pressure 71 mm[Hg] Irving Ball Other [employer] Other 02-01-2023 11:30-0400 Respiratory rate 12 /min Irving Ball Other [employer] Other 02-01-2023 11:30-0400 Systolic blood pressure 126 mm[Hg] Irving Ball Other [employer] Other 01-03-2023 11:01-0400 Heart rate 46 /min Irving E Ball Work Phone: [facility] [employer] 250 DO Work Phone: 01-03-2023 10:58-0400 Body height 175.26 cm Irving E Ball Work Phone: [facility] [employer] 250 DO Work Phone: 01-03-2023 10:58-0400 Body mass index (BMI) [Ratio] 29.24 kg/m2 Irving E Ball Work Phone: [employer] 250 DO Work Phone: 01-03-2023 10:58-0400 Body surface area Derived from formula 2.06 m2 Irving E Ball Work Phone: [employer] 250 DO Work Phone: 01-03-2023 10:58-0400 Body weight 89.81 kg Irving Floyd Ball Work Phone: [facility] 250 DO Work Phone: 01-03-2023 10:58-0400 Diastolic blood pressure 80 mm[Hg] Irving E Ball Work Phone: [facility] 250 DO Work Phone: 01-03-2023 10:58-0400 Systolic blood pressure 150 mm[Hg] Irving Floyd Ball Work Phone: [facility] 250 DO Work Phone: 12-08-2022 11:55-0400 Diastolic blood pressure 66 mm[Hg] Irving Floyd Ball Work Phone: [facility] [place] 250 DO Work Phone: 12-08-2022 11:55-0400 Heart rate 52 /min Irving Floyd Ball Work Phone: [facility] 250 DO Work Phone: 12-08-2022 11:55-0400 Systolic blood pressure 124 mm[Hg] Irving Floyd Ball Work Phone: [facility] [employer] 250 DO Work Phone: 12-08-2022 11:54-0400 Body height 175.26 cm Irving Floyd Ball Work Phone: [facility] 250 DO Work Phone: 12-08-2022 11:54-0400 Body mass index (BMI) [Ratio] 29.24 kg/m2 Irving Floyd Ball Work Phone: [facility] 250 DO Work Phone: 12-08-2022 11:54-0400 Body surface area Derived from formula 2.06 m2 Irving Floyd Ball Work Phone: [facility] 250 DO Work Phone: 12-08-2022 11:54-0400 Body weight 89.81 kg Irving Floyd Ball Work Phone: [facility] [place] 250 DO Work Phone: 12-08-2022 11:54-0400 Diastolic blood pressure 70 mm[Hg] Irving E Ball Work Phone: [facility] [place] 250 DO Work Phone: 12-08-2022 11:54-0400 Systolic blood pressure 130 mm[Hg] Irving E Ball Work Phone: [facility] [place] 250 DO Work Phone: 11-29-2022 09:30-0400 Body height 175.26 cm Irving E Ball Work Phone: [facility] 250 DO Work Phone: 11-29-2022 09:30-0400 Body mass index (BMI) [Ratio] 29.09 kg/m2 Irving Floyd Ball Work Phone: [facility] 250 DO Work Phone: 11-29-2022 09:30-0400 Body surface area Derived from formula 2.05 m2 Irving E Ball Work Phone: [facility] 250 DO Work Phone: 11-29-2022 09:30-0400 Body weight 89.36 kg Irving Floyd Ball Work Phone: [facility] 250 DO Work Phone: 11-29-2022 09:30-0400 Diastolic blood pressure 82 mm[Hg] Irving E Ball Work Phone: [facility] 250 DO Work Phone: 11-29-2022 09:30-0400 Heart rate 44 /min Irving E Ball Work Phone: [facility] 250 DO Work Phone: 11-29-2022 09:30-0400 Systolic blood pressure 142 mm[Hg] Irving E Ball Work Phone: [facility] 250 DO Work Phone: 11-02-2022 12:30-0400 Body height 175.26 cm Irving Ball Other [facility] [employer] Other 11-02-2022 12:30-0400 Body mass index (BMI) [Ratio] 28.88 kg/m2 Irving Ball Other [facility] [employer] Other 11-02-2022 12:30-0400 Body weight 88.72 kg Irving Ball Other [facility] [employer] Other 11-02-2022 12:30-0400 Diastolic blood pressure 70 mm[Hg] Irving Ball Other [facility] [employer] Other 11-02-2022 12:30-0400 Respiratory rate 12 /min Irving Ball Other [facility] [employer] Other 11-02-2022 12:30-0400 Systolic blood pressure 148 mm[Hg] Irving Ball Other [facility] [employer] Other 10-28-2022 21:03-0400 Diastolic blood pressure 66 mm[Hg] DO Irving Ball Work Phone: [facility] 10-28-2022 21:03-0400 Heart rate 57 /min DO Irving Ball Work Phone: [facility] 10-28-2022 21:03-0400 Respiratory rate 16 /min DO Irving Ball Work Phone: [facility] 10-28-2022 21:03-0400 SaO2% (BldA) [Mass fraction] 96 % DO Irving Ball Work Phone: [facility] 10-28-2022 21:03-0400 Systolic blood pressure 135 mm[Hg] DO Irving Ball Work Phone: [facility] 10-28-2022 20:17-0400 Body height 175.26 cm DO Irving Ball Work Phone: [facility] 10-28-2022 20:17-0400 Body temperature 98.3 [degF] DO Irving Ball Work Phone: [facility] 10-28-2022 20:17-0400 Body weight 90.7 kg DO Irving Ball Work Phone: [facility] 10-26-2022 14:30-0400 Body height 175.26 cm Irving Ball Other [facility] [employer] Other 10-26-2022 14:30-0400 Body mass index (BMI) [Ratio] 29.32 kg/m2 Irving Ball Other [facility] [employer] Other 10-26-2022 14:30-0400 Body weight 90.08 kg Irving Ball Other [employer] Other 10-26-2022 14:30-0400 Diastolic blood pressure 80 mm[Hg] Irving Ball Other [employer] Other 10-26-2022 14:30-0400 Systolic blood pressure 147 mm[Hg] Irving Ball Other [employer] Other 10-01-2022 09:45-0400 Body height 175.26 cm Irving Ball Other [employer] Other 10-01-2022 09:45-0400 Body mass index (BMI) [Ratio] 29.41 kg/m2 Irving Ball Other [employer] Other 10-01-2022 09:45-0400 Body weight 90.36 kg Irving Ball Other [employer] Other 10-01-2022 09:45-0400 Diastolic blood pressure 74 mm[Hg] Irving Ball Other [employer] Other 10-01-2022 09:45-0400 Respiratory rate 12 /min Irving Ball Other [employer] Other 10-01-2022 09:45-0400 Systolic blood pressure 157 mm[Hg] Irving Ball Other [employer] Other 09-02-2022 11:30-0500 Body height 175.26 cm Irving Ball Other [employer] Other 09-02-2022 11:30-0500 Body mass index (BMI) [Ratio] 29.5 kg/m2 Irving Ball Other [employer] Other 09-02-2022 11:30-0500 Body weight 90.63 kg Irving Ball Other [employer] Other 09-02-2022 11:30-0500 Diastolic blood pressure 70 mm[Hg] Irving Ball Other [employer] Other 09-02-2022 11:30-0500 Respiratory rate 12 /min Irving Ball Other [employer] Other 09-02-2022 11:30-0500 Systolic blood pressure 112 mm[Hg] Irving Ball Other [employer] Other 08-18-2022 09:45-0500 Body height 175.26 cm Irving Ball Other [employer] Other 08-18-2022 09:45-0500 Body mass index (BMI) [Ratio] 29.59 kg/m2 Irving Ball Other [employer] Other 08-18-2022 09:45-0500 Body weight 90.9 kg Irving Ball Other [employer] Other 08-18-2022 09:45-0500 Diastolic blood pressure 86 mm[Hg] Irving Ball Other [employer] Other 08-18-2022 09:45-0500 Respiratory rate 12 /min Irving Ball Other [facility] [employer] Other 08-18-2022 09:45-0500 Systolic blood pressure 142 mm[Hg] Irving Ball Other [facility] [employer] Other 07-15-2022 10:06-0500 Body height 175.26 cm Irving E Ball Work Phone: [facility] [employer] 250 DO Work Phone: 07-15-2022 10:06-0500 Body mass index (BMI) [Ratio] 28.94 kg/m2 Irving E Ball Work Phone: [facility] [employer] 250 DO Work Phone: 07-15-2022 10:06-0500 Body surface area Derived from formula 2.05 m2 Irving E Ball Work Phone: [facility] [employer] 250 DO Work Phone: 07-15-2022 10:06-0500 Body weight 88.91 kg Irving E Ball Work Phone: [facility] [employer] 250 DO Work Phone: 07-15-2022 10:06-0500 Diastolic blood pressure 78 mm[Hg] Irving E Ball Work Phone: [facility] [employer] 250 DO Work Phone: 07-15-2022 10:06-0500 Heart rate 50 /min Irving E Ball Work Phone: [facility] 250 DO Work Phone: 07-15-2022 10:06-0500 Systolic blood pressure 118 mm[Hg] Irving Floyd Ball Work Phone: [facility] 250 DO Work Phone: 01-05-2022 13:30-0400 Body height 175.26 cm Irving Floyd Ball Work Phone: [facility] [employer] 250 DO Work Phone: 01-05-2022 13:30-0400 Body mass index (BMI) [Ratio] 29.09 kg/m2 Irving Floyd Ball Work Phone: [facility] [employer] 250 DO Work Phone: 01-05-2022 13:30-0400 Body surface area Derived from formula 2.05 m2 Irving Floyd Ball Work Phone: [facility] [employer] 250 DO Work Phone: 01-05-2022 13:30-0400 Body weight 89.36 kg Irving Floyd Ball Work Phone: [facility] [employer] 250 DO Work Phone: 01-05-2022 13:30-0400 Diastolic blood pressure 62 mm[Hg] Irving Floyd Ball Work Phone: [facility] 250 DO Work Phone: 01-05-2022 13:30-0400 Heart rate 50 /min Irving Floyd Ball Work Phone: [facility] 250 DO Work Phone: 01-05-2022 13:30-0400 Systolic blood pressure 120 mm[Hg] Irving Floyd Ball Work Phone: [facility] [employer] 250 DO Work Phone: 12-14-2021 12:42-0400 Body height 175.26 cm Irving Floyd Ball Work Phone: [facility] 250 DO Work Phone: 12-14-2021 12:42-0400 Body mass index (BMI) [Ratio] 28.65 kg/m2 Irving E Ball Work Phone: [facility] 250 DO Work Phone: 12-14-2021 12:42-0400 Body surface area Derived from formula 2.04 m2 Irving E Ball Work Phone: [facility] 250 DO Work Phone: 12-14-2021 12:42-0400 Body weight 88 kg Irving E Ball Work Phone: [facility] [employer] 250 DO Work Phone: 12-14-2021 12:42-0400 Diastolic blood pressure 80 mm[Hg] Irving Floyd Ball Work Phone: [facility] [place] 250 DO Work Phone: 12-14-2021 12:42-0400 Heart rate 50 /min Irving Floyd Ball Work Phone: [facility] [employer] 250 DO Work Phone: 12-14-2021 12:42-0400 Systolic blood pressure 134 mm[Hg] Irving Floyd Ball Work Phone: [facility] 250 DO Work Phone: 12-14-2021 08:42-0400 Body height 175.26 cm Irving E Ball Work Phone: [facility] 250 DO Work Phone: 12-14-2021 08:42-0400 Body mass index (BMI) [Ratio] 28.65 kg/m2 Irving Floyd Ball Work Phone: [facility] 250 DO Work Phone: 12-14-2021 08:42-0400 Body surface area Derived from formula 2.04 m2 Irving E Ball Work Phone: [facility] 250 DO Work Phone: 12-14-2021 08:42-0400 Body weight 88 kg Irving E Ball Work Phone: [facility] 250 DO Work Phone: 12-14-2021 08:42-0400 Diastolic blood pressure 80 mm[Hg] Irving E Ball Work Phone: [facility] [place] 250 DO Work Phone: 12-14-2021 08:42-0400 Heart rate 49 /min Irving E Ball Work Phone: [facility] 250 DO Work Phone: 12-14-2021 08:42-0400 Systolic blood pressure 154 mm[Hg] Irving E Ball Work Phone: [facility] 250 DO Work Phone: 10-16-2021 14:16-0400 Body height 175.26 cm Irving E Ball Work Phone: [facility] [employer] 250 DO Work Phone: 10-16-2021 14:16-0400 Body mass index (BMI) [Ratio] 29.54 kg/m2 Irving E Ball Work Phone: [facility] 250 DO Work Phone: 10-16-2021 14:16-0400 Body surface area Derived from formula 2.07 m2 Irving E Ball Work Phone: [facility] [place] 250 DO Work Phone: 10-16-2021 14:16-0400 Body weight 90.72 kg Irving E Ball Work Phone: [facility] 250 DO Work Phone: 10-16-2021 14:16-0400 Diastolic blood pressure 70 mm[Hg] Irving E Ball Work Phone: [facility] [place] 250 DO Work Phone: 10-16-2021 14:16-0400 Heart rate 59 /min Irving E Ball Work Phone: [facility] 250 DO Work Phone: 10-16-2021 14:16-0400 Systolic blood pressure 134 mm[Hg] Irving E Ball Work Phone: [facility] 250 DO Work Phone: 10-07-2021 09:36-0400 Body height 175.26 cm Irving E Ball Work Phone: [facility] 250 DO Work Phone: 10-07-2021 09:36-0400 Body mass index (BMI) [Ratio] 28.86 kg/m2 Irving E Ball Work Phone: [facility] 250 DO Work Phone: 10-07-2021 09:36-0400 Body surface area Derived from formula 2.05 m2 Irving E Ball Work Phone: [facility] 250 DO Work Phone: 10-07-2021 09:36-0400 Body weight 88.63 kg Irving E Ball Work Phone: [facility] 250 DO Work Phone: 10-07-2021 09:36-0400 Diastolic blood pressure 70 mm[Hg] Irving E Ball Work Phone: [facility] 250 DO Work Phone: 10-07-2021 09:36-0400 Heart rate 68 /min Irving E Ball Work Phone: [facility] 250 DO Work Phone: 10-07-2021 09:36-0400 Systolic blood pressure 136 mm[Hg] Irving E Ball Work Phone: [facility] 250 DO Work Phone: 09-02-2021 09:57-0500 Body height 175.26 cm Irving E Ball Work Phone: [facility] 250 DO Work Phone: 09-02-2021 09:57-0500 Body mass index (BMI) [Ratio] 29.39 kg/m2 Irving E Ball Work Phone: [facility] 250 DO Work Phone: 09-02-2021 09:57-0500 Body surface area Derived from formula 2.06 m2 Irving E Ball Work Phone: [facility] 250 DO Work Phone: 09-02-2021 09:57-0500 Body weight 90.27 kg Irving Floyd Ball Work Phone: [facility] 250 DO Work Phone: 09-02-2021 09:57-0500 Diastolic blood pressure 98 mm[Hg] Irving E Ball Work Phone: [facility] 250 DO Work Phone: 09-02-2021 09:57-0500 Diastolic blood pressure 102 mm[Hg] Irving E Ball Work Phone: [facility] 250 DO Work Phone: 09-02-2021 09:57-0500 Systolic blood pressure 180 mm[Hg] Irving E Ball Work Phone: [facility] 250 DO Work Phone: 09-02-2021 09:57-0500 Systolic blood pressure 172 mm[Hg] Irving E Ball Work Phone: [facility] 250 DO Work Phone: 09-02-2021 09:57-0500 Systolic blood pressure 152 mm[Hg] Irving Floyd Ball Work Phone: [facility] 250 DO Work Phone: 09-02-2021 09:57-0500 66 1 Irving E Ball Work Phone: [facility] 250 DO Work Phone: Comment on above: PULRateLy PULRateSit 09-02-2021 09:57-0500 58 1 Irving Floyd Ball Work Phone: [facility] 250 DO Work Phone: Comment on above: [employer]UL[employer]St 07-01-2021 11:57-0500 Body height 175.26 cm Irving Floyd Ball Work Phone: [facility] 250 DO Work Phone: 07-01-2021 11:57-0500 Body mass index (BMI) [Ratio] 28.8 kg/m2 Irving Floyd Ball Work Phone: [facility] 250 DO Work Phone: 07-01-2021 11:57-0500 Body surface area Derived from formula 2.04 m2 Irving Floyd Ball Work Phone: [facility] 250 DO Work Phone: 07-01-2021 11:57-0500 Body weight 88.45 kg Irving E Ball Work Phone: [facility] 250 DO Work Phone: 07-01-2021 11:57-0500 Diastolic blood pressure 76 mm[Hg] Irving E Ball Work Phone: [facility] 250 DO Work Phone: 07-01-2021 11:57-0500 Heart rate 42 /min Irving E Ball Work Phone: [facility] 250 DO Work Phone: 07-01-2021 11:57-0500 Systolic blood pressure 145 mm[Hg] Irving Canela Work Phone: [facility] 250 DO Work Phone: Encounters Encounter Date Encounter Type Care Provider Facility Start: 07-24-2024 End: 07-24-2024 Office outpatient visit 25 minutes Brendon Ferrer Tod DO Work Phone: [facility] Comment on above: 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; Bradycardia; H/O non-ST elevation myocardial infarction (NSTEMI); S/P PTCA (percutaneous transluminal coronary angioplasty); High risk medication use; Paroxysmal atrial fibrillation (Multi); Mixed hyperlipidemia; Former smoker; BMI 29.0-29.9,adult Start: 07-23-2024 End: 07-23-2024 Bamboo flowsheet Irving Fonseca DO Work Phone: [facility] Start: 07-23-2024 End: 07-23-2024 Bamboo flowsheet Irving Simon Latishaadrianasuzy DO Work Phone: [facility] Start: 07-23-2024 End: 07-23-2024 Office outpatient new 45 minutes Irving Fonseca DO Work Phone: [facility] Comment on above: Mohs defect of neck Start: 07-23-2024 End: 07-23-2024 ambulatory IRVING FONSECA Not Available Start: 07-19-2024 End: 07-19-2024 ambulatory PEDRO WAGNER Not Available Start: 07-19-2024 End: 07-19-2024 Patient encounter procedure Pedro Wagner MD Work Phone: [facility] Comment on above: Basal cell carcinoma of skin of scalp and neck (Primary Dx) Start: 07-19-2024 End: 07-19-2024 [facility] Work Phone: Start: 07-19-2024 End: 07-19-2024 Patient encounter procedure [facility] Phys[facility] Work Phone: Start: 07-10-2024 End: 07-10-2024 ambulatory [facility] Work Phone: Start: 07-10-2024 End: 07-10-2024 Patient encounter procedure [facility] Work Phone: Start: 05-21-2024 End: 05-21-2024 Lisandra Girard MD Work Phone: [facility] Start: 05-21-2024 End: 05-21-2024 Lisandra Girard MD Work Phone: [facility] Start: 05-21-2024 End: 05-21-2024 Office outpatient visit 15 minutes Bashir Girard MD Work Phone: [facility] Comment on above: Seborrheic keratosis (Primary Dx); Lentigines; History of SCC (squamous cell carcinoma) of skin; History of malignant melanoma of skin; Actinic keratosis; Neoplasm of unspecified behavior of bone, soft tissue, and skin Start: 05-21-2024 End: 05-21-2024 ambulatory BASHIR GIRARD Not Available Start: 05-17-2024 End: 05-17-2024 [facility] Work Phone: Start: 05-17-2024 End: 05-17-2024 Patient encounter procedure [facility] Work Phone: Start: 04-11-2024 Non-patient / Non-visit [facility] Work Phone: Start: 03-29-2024 End: 03-29-2024 Nursing evaluation of patient and report Breath Test Sree [facility] Work Phone: [facility] Comment on above: Diarrhea, unspecifie d type (Primary Dx) Start: 03-19-2024 End: 03-19-2024 ambulatory [facility] Work Phone: Start: 03-19-2024 End: 03-19-2024 Patient encounter procedure [facility] Work Phone: Start: 02-14-2024 End: 02-14-2024 Bamboo flowsheet Bashir Girard MD Work Phone: [facility] Start: 02-14-2024 End: 02-14-2024 Bamboo flowsheet Bashir Girard MD Work Phone: [facility] Start: 02-14-2024 End: 02-14-2024 Office outpatient visit 25 minutes Bashir Girard MD Work Phone: [facility] Comment on above: Drug-induced photose nsitivity (Primary Dx); Seborrheic keratosis; Lentigines; Actinic keratosis; History of malignant melanoma of skin Start: 02-14-2024 End: 02-14-2024 ambulatory BASHIR GIRARD Not Available Start: 02-13-2024 End: 02-13-2024 ambulatory Bethel CHAIREZ Facility:[facility] Start: 02-13-2024 End: 02-13-2024 Patient encounter procedure Bethel CHAIREZ [facility] Start: 02-02-2024 End: 02-02-2024 ambulatory MD Miriam Juarez Work Phone: [facility] Work Phone: Start: 02-02-2024 End: 02-02-2024 Patient encounter procedure MD Miriam Juarez Work Phone: [facility] Gastroenterology Work Phone: Start: 01-02-2024 End: 01-02-2024 Subsequent hospital visit by physician Radha Pierce Stress Room [address] [facility] Comment on above: Chest pain, unspecif ied type Start: 01-02-2024 End: 01-02-2024 ambulatory [facility] Start: 12-28-2023 End: 12-28-2023 Office outpatient visit 25 minutes Brendon Baron DO Work Phone: [facility] Comment on above: 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; Bradycardia; S/P PTCA (percutaneous transluminal coronary angioplasty); H/O non-ST elevation myocardial infarction (NSTEMI); Paroxysmal atrial fibrillation (Multi); High risk medication use; Hypertension, benign; Mixed hyperlipidemia; BMI 28.0-28.9,adult; Former smoker; Chest pain, unspecified type Start: 12-28-2023 End: 12-28-2023 ambulatory [facility] Start: 12-16-2023 Non-patient / Non-visit MD Deanna Juarez Work Phone: [facility] Physician [facility] Work Phone: Start: 11-22-2023 End: 11-22-2023 ambulatory Miriam Juarez Facility:[facility] Start: 11-22-2023 Non-patient / Non-visit DO Levar Canela Work Phone: [facility] Work Phone: Start: 11-22-2023 End: 11-22-2023 ambulatory DO Irving Canela Work Phone: [facility] Work Phone: Start: 11-22-2023 End: 11-22-2023 Departed Referred DO Irving Canela Work Phone: [facility] Start: 11-15-2023 End: 11-15-2023 ambulatory DO Irving Canela Work Phone: [facility] Work Phone: Start: 11-15-2023 End: 11-15-2023 Patient encounter procedure DO Irving Canela Work Phone: [facility] Physician [facility] Work Phone: Start: 11-14-2023 End: 11-14-2023 ambulatory BASHIR GIRARD Not Available Start: 10-29-2023 Non-patient / Non-visit DO Levar tania Ball Work Phone: [facility] Physician [facility] Work Phone: Start: 10-26-2023 End: 10-26-2023 ambulatory Irving Ball Facility:[facility] Start: 10-26-2023 Non-patient / Non-visit DO Levar tania Ball Work Phone: [facility] Gastroenterology Work Phone: Start: 10-26-2023 End: 10-26-2023 Admission to same day surgery center DO Irving Ball Work Phone: [facility] Work Phone: Start: 10-20-2023 Non-patient / Non-visit DO Levar tania Ball Work Phone: [facility] Work Phone: Start: 10-17-2023 End: 10-17-2023 ambulatory DO Irving Ball Work Phone: [facility] Work Phone: Start: 10-17-2023 End: 10-17-2023 Patient encounter procedure DO Irving Ball Work Phone: [facility] Physician [facility] Gastroenterology Work Phone: Start: 2023 Non-patient / Non-visit DO Levar tania Ball Work Phone: [facility] Work Phone: Start: 09-23-2023 End: 09-23-2023 ambulatory DO Irving Ball Work Phone: [facility] Work Phone: Start: 09-23-2023 End: 09-23-2023 Patient encounter procedure DO Irving Ball Work Phone: [facility] Work Phone: Start: 09-14-2023 End: 09-14-2023 ambulatory DO Irving Canela Work Phone: [facility] Work Phone: Start: 09-14-2023 End: 09-14-2023 Patient encounter procedure DO Irving Canela Work Phone: [facility] Work Phone: Start: 09-01-2023 Non-patient / Non-visit DO Levar Canela Work Phone: [facility] Physician [facility] Pulmonary Disease Work Phone: Start: 08-29-2023 End: 08-29-2023 ambulatory Murali Browndon Facility:[facility] Start: 08-29-2023 End: 08-29-2023 Patient encounter procedure DO Irving Canela Work Phone: [facility]-Respiratory Therapy Work Phone: Start: 08-26-2023 Non-patient / Non-visit DO Levar Canela Work Phone: [facility] Physician [facility] Work Phone: Start: 08-15-2023 End: 08-15-2023 ambulatory BASHIR Buchanan CHELSEY Not Available Start: 08-04-2023 End: 08-04-2023 ambulatory Irving Canela Other [facility] Professional [employer] Other Start: 08-04-2023 Office outpatient vi sit 25 minutes Irving Canela [facility] Start: 07-25-2023 End: 07-25-2023 Office outpatient visit 25 minutes Brendon Baron DO Work Phone: [facility] Comment on above: Bradycardia; H/O non-ST elevation myocardial infarction (NSTEMI); Paroxysmal atrial fibrillation (CMS/HCC); S/P PTCA (percutaneous transluminal coronary angioplasty) Start: 07-25-2023 End: 07-25-2023 ambulatory [facility] Start: 05-13-2023 End: 05-13-2023 ambulatory Irving Canela Other [employer] Other Start: 05-13-2023 Office outpatient vi sit 15 minutes Irving Canela [facility] Start: 05-04-2023 End: 05-04-2023 ambulatory Irving Canela Other [employer] Other Start: 05-04-2023 Office outpatient vi sit 25 minutes Irving Canela [facility] Start: 04-21-2023 Telephone encounter Markell glasgow [facility] Start: 04-21-2023 End: 04-21-2023 ambulatory Irving Canela Facility:[facility] Start: 04-21-2023 End: 04-21-2023 Admission to same day surgery center DO Irving Canela Work Phone: [facility] Work Phone: Start: 04-21-2023 End: 04-21-2023 ambulatory DO Irving Canela Work Phone: [facility] Work Phone: Start: 03-25-2023 End: 03-25-2023 ambulatory Irving Canela Other [facility] [employer] Other Start: 03-25-2023 Telephone encounter Irving Canela [facility] Start: 03-23-2023 FUV, Provider: Florence Norman, Status: Pen, Time: 12:30 PM Irving Canela Work Phone: [facility] 250 DO Work Phone: Start: 03-23-2023 ambulatory Ms. Henriquez Lupe Aden Facility: Start: 03-22-2023 Chart Update Irving shelby Work Phone: [facility] 250 DO Work Phone: Start: 03-21-2023 Chart Update Irving shelby Work Phone: [facility] 250 DO Work Phone: Start: 03-21-2023 End: 03-21-2023 ambulatory Alfred Baron Facility:[facility] Start: 03-21-2023 End: 03-21-2023 ambulatory DO Irving Canela Work Phone: [facility] Work Phone: Start: 03-21-2023 End: 03-21-2023 Patient encounter procedure DO Irving Ball Work Phone: [facility]-Respiratory Therapy Work Phone: Start: 03-07-2023 ambulatory Ms. Florence Aden Facility: Start: 03-01-2023 End: 03-01-2023 ambulatory Markell Garza Other [employer] Other Start: 03-01-2023 Office outpatient ne w 45 minutes Markell Garza [facility] Gastroenterology Start: 02-01-2023 End: 02-01-2023 ambulatory Irving Canela Other [employer] Other Start: 02-01-2023 Office outpatient vi sit 25 minutes Irving Canela [facility] Start: 01-13-2023 Rx Renewal Irving Rg l Work Phone: [facility] 250 DO Work Phone: Start: 01-03-2023 Office outpatient vi sit 15 minutes Irving E Ball Work Phone: [facility] 250 DO Work Phone: Start: 01-03-2023 Patient encounter procedure Irving E Ball Work Phone: [facility] 250 DO Work Phone: Start: 01-03-2023 ambulatory Ms. Florence Aden Facility: Start: 12-31-2022 Rx Renewal Irving E Bal l Work Phone: [facility] 250 DO Work Phone: Start: 12-28-2022 ambulatory Rose Green Facility : Start: 12-08-2022 Office outpatient vi sit 5 minutes Irving Floyd Ball Work Phone: [facility] 250 DO Work Phone: Start: 12-08-2022 Patient encounter procedure Irving Canela Work Phone: [facility] 250 DO Work Phone: Start: 12-08-2022 ambulatory Ms. Florence Aden Facility: Start: 11-29-2022 Office outpatient vi sit 25 minutes Irving Canela Work Phone: [facility] 250 DO Work Phone: Start: 11-29-2022 ambulatory Ms. Florence Aden Facility: Start: 11-02-2022 End: 11-02-2022 ambulatory Irving Canela Other [employer] Other Start: 11-02-2022 Transitional care echo [place] srvc 14 day discharge Irving Canela [facility] Start: 11-01-2022 End: 11-01-2022 ambulatory Irving Canela Other [employer] Other Start: 11-01-2022 Telephone encounter Irving [facility]S [facility] Start: 10-31-2022 End: 10-31-2022 ambulatory Irving Rola Other [employer] Other Start: 10-31-2022 Telephone encounter Irving [facility] Start: 10-29-2022 End: 10-29-2022 ambulatory Irving Rola Other [employer] Other Start: 10-29-2022 Telephone encounter Irving [facility] Start: 10-28-2022 Evaluation and manag ement of inpatient DO Irving Canela Work Phone: [facility] Work Phone: Start: 10-28-2022 observation encounter DO Miguel Canela Work Phone: [facility] Work Phone: Start: 10-26-2022 End: 10-26-2022 ambulatory Irving Canela Other [employer] Other Start: 10-26-2022 Patient encounter procedure Irving Canela [facility] Start: 10-20-2022 End: 10-21-[address] IRVING CANELA Facility: Start: 10-15-2022 Rx Renewal Irving shelby [facility] Work Phone: Start: 10-15-2022 End: 10-15-2022 ambulatory DO Irving Canela Work Phone: [facility] Work Phone: Start: 10-15-2022 End: 10-15-2022 Patient encounter procedure DO Irving Canela Work Phone: [facility]-Respiratory Therapy Work Phone: Start: 10-01-2022 End: 10-01-2022 ambulatory Irving Canela Other [employer] Other Start: 10-01-2022 Office outpatient vi sit 25 minutes Irving Canela [facility] Start: 09-30-2022 End: 09-30-2022 ambulatory Irving Canela Other [employer] Other Start: 09-30-2022 Telephone encounter Irving Canela FP [facility] Start: 09-08-2022 Patient encounter procedure Irving Canela Work Phone: [facility] [employer] 250 DO Work Phone: Start: 09-07-2022 End: 09-07-2022 ambulatory Irving Rola Other [employer] Other Start: 09-07-2022 Telephone encounter Irving Canela FP [facility] Start: 09-02-2022 End: 09-02-2022 ambulatory Irving Canela Other [facility] [employer] Other Start: 09-02-2022 Office outpatient vi sit 15 minutes Irving Canela [facility] Start: 08-18-2022 Rx Renewal Irving Floyd Bal l Work Phone: [facility] 250 DO Work Phone: Start: 08-18-2022 End: 08-18-2022 ambulatory Irving Canela Other [facility] [employer] Other Start: 08-18-2022 Office outpatient vi sit 25 minutes Irving Canela [facility] Start: 07-15-2022 Office outpatient vi sit 15 minutes Irving Canela Work Phone: [facility] 250 DO Work Phone: Start: 07-15-[address] Irving Canela Facility: Start: 07-12-2022 End: 07-12-2022 ambulatory DO Irving Canela Work Phone: [facility] Work Phone: Start: 07-12-2022 End: 07-12-2022 Patient encounter procedure DO Irving Canela Work Phone: [facility]-Respiratory Therapy Work Phone: Start: 06-15-2022 End: 06-15-[address] IRVING CANELA Facility:[facility] Start: 06-03-2022 Patient encounter procedure Irving Canela Work Phone: [facility] 250 DO Work Phone: Start: 05-31-[address] IRVING Downsi ty:[facility] Start: 05-13-2022 End: 05-14-2022 ambulatory RADHA Oroczo Facility:[facility] Start: 04-20-2022 End: 04-21-[address] IRVING CANELA Facility:[facility] Start: 04-13-2022 End: 04-13-[address] BEAU SIM . Facility:[facility] Start: 04-12-2022 Encounter for preprocedural laboratory examination DR BEAU SIM . [facility] Start: 04-10-2022 End: 04-11-[address] IRVING CANELA Facility:[facility] Start: 04-10-2022 End: 04-11-2022 Encounter for preprocedural laboratory examination DR IRVING CANELA Facility:[facility] Start: 03-25-2022 End: 03-26-[address] BEAU SIM . Facility:[facility] Start: 03-24-2022 End: 03-24-2022 ambulatory DO Irving Canela Work Phone: [facility] Work Phone: Start: 03-24-2022 End: 03-24-2022 Patient encounter procedure DO Irving Canela Work Phone: [facility]-Respiratory Therapy Start: 03-09-2022 End: 03-09-[address] BEAU SIM . Facility:[facility] Start: 02-26-2022 Patient encounter procedure Irving Canela Work Phone: [facility] 250 DO Work Phone: Start: 02-09-2022 End: 02-10-[address] BEAU SIM . Facility:[facility] Start: 01-26-2022 End: 01-26-[address] BEAU SIM . Facility:[facility] Start: 01-19-2022 End: 01-20-[address] PHILL EUBANKS Facility:[facility] Start: 01-18-2022 Patient encounter procedure Irving Mariel Canela Work Phone: [facility] 250 DO Work Phone: Start: 01-07-2022 End: 01-08-[address] PHILL EUBANKS Facility:[facility] Start: 01-05-2022 Office outpatient vi sit 40 minutes Irving Mariel Ball Work Phone: [facility] 250 DO Work Phone: Start: 12-29-2021 End: 12-30-[address] PHILL EUBANKS Facility:[facility] Start: 12-14-2021 Office outpatient vi sit 25 minutes Irving E [facility] Work Phone: [facility] Work Phone: Start: 11-09-2021 Adult health examination Miguel Canela Other [facility] [employer] Other Start: 10-29-2021 Patient encounter procedure Irving E Ball Work Phone: [facility] 250 DO Work Phone: Start: 10-29-2021 Rx Renewal Irving shelby Work Phone: [facility] 600 DO Work Phone: Start: 10-16-2021 Patient encounter procedure Irving E Ball Work Phone: [facility] 250 DO Work Phone: Start: 10-07-2021 Office outpatient vi sit 25 minutes Irving E Ball Work Phone: [facility] 600 DO Work Phone: Start: 10-07-2021 Patient encounter procedure Irving E Ball Work Phone: [facility] 250 DO Work Phone: Start: 09-25-2021 AUDIT Irving Rg l Work Phone: [facility] 250 DO Work Phone: Start: 09-07-2021 Patient encounter procedure Irving E Ball Work Phone: [facility] 250 DO Work Phone: Start: 09-04-2021 Telephone encounter Irving E Ball Work Phone: [facility] 250 DO Work Phone: Start: 08-14-2021 AUDIT Irving Rg l Work Phone: [facility] 250 DO Work Phone: Start: 07-06-2021 Rx Renewal Irving shelby Work Phone: [facility] 250 DO Work Phone: Start: 07-01-2021 Office outpatient vi sit 25 minutes Irving Canela Work Phone: [facility] 250 DO Work Phone: Start: 06-24-2021 Patient encounter procedure Florence Aden CREDIT COORDINATOR-TRAFFIC I MANAGER Work Phone: [facility] 250 DO Work Phone: Start: 06-15-2018 End: 06-16-2018 Patient encounter procedure DEFAULT PHYSICIAN Facility:[facility] Start: 05-09-2018 End: 05-10-2018 Patient encounter procedure ANNA HOYT Facility:[facility] Procedures Date Procedure Procedure Detail Performing Clinician Start: 07-24-2024 Ecg routine ecg w/least 12 lds w/i&r Brendon Baron DO Work Phone: Start: 07-18-2024 MOHS SURGERY Pedro Wagner MD Work Phone: Start: 05-21-2024 SKIN / NAIL BIOPSY Bashir Girard MD Work Phone: Start: 05-21-2024 CRYOTHERAPY SKIN LESION Bashir Girard MD Work Phone: Start: 02-14-2024 CRYOTHERAPY SKIN LESION Bashir Girard MD Work Phone: Start: 12-28-2023 Ecg routine ecg w/least 12 lds w/i&r Brendon Baron DO Work Phone: Start: 10-26-2023 Flexible fiberoptic sigmoidoscopy DO Levar Canela Work Phone: Start: 10-20-2023 E coli Shiga Toxin EIA DO Irving Canela Work Phone: Start: 10-20-2023 Salmonella/Shigella Screen DO Irving B all Work Phone: Start: 08-29-2023 Plain chest X-ray DO Irving Canela Work Phone: Start: 07-25-2023 ECG 12-LEAD BRENDON BARON Start: 07-25-2023 Ecg routine ecg w/least 12 lds w/i&r Brendon Baron DO Work Phone: Start: 04-21-2023 Esophagogastroduodenoscopy DO Irving B all Work Phone: Start: 03-21-2023 Plain chest X-ray DO Irving Caenla Work Phone: Start: 10-15-2022 Plain chest X-ray DO Irving Canela Work Phone: Start: 07-12-2022 Plain chest X-ray DO Irving Canela Work Phone: Start: 03-24-2022 Plain chest X-ray DO Irving Canela Work Phone: Start: 06-27-2020 Total colonoscopy Irving Canela Work Phone: Start: 03-12-2016 Screening for malignant neoplasm of colon Irving Canela Other Start: 04-26-2010 History of external beam radiation therapy Bethel CHAIREZ Start: 10-26-2007 Cystoscopy Bethel CHAIREZ Start: 08-24-2007 Radical prostatectomy Bethel CHAIREZ Start: 05-02-2007 Transrectal biopsy of prostate using ultrasound guidance Bethel CHAIREZ back surgery Bethel CHAIREZ Colonoscopy Bethel CHAIREZ Depression screening Diogo n Rola Other Destructive procedure Sukhjinder alex Mariel Canela Work Phone: History of placement of stent for coronary artery disease History of heart artery stent DO Irving Canela Work Phone: Percutaneous translu igor coronary angioplasty Irving Canela Work Phone: Placement of stent Bethel AMARO Procedure on back Irving E Rola Work Phone: Procedure on prostate Benjam in E Ball Work Phone: Tonsillectomy Bethel CHAIREZ Plan of Treatment Date Care Activity Detail Author Start: 09-02-2029 DTaP/Tdap/Td Vaccines (2 - Td or Tdap) DTaP/Tdap/Td Vaccines (2 - Td or Tdap) [facility] Start: 09-02-2029 Urine microalbumin profile DTaP,Tdap,Td Vaccine (2 - Td or Tdap) [facility] Start: 08-28-2026 Diabetes Screening Diabetes Screening [facility] Start: 11-15-2024 Medicare Annual Wellness Visit Medicare Annual Wellness Visit (AWV) [facility] Start: 08-27-2024 End: 08-27-2024 Patient encounter procedure 08/27/2024 1:05 PM EST Office Visit [facility] [address] [place] [address] Basihr Girard MD [address] [place] [address] [facility] Start: 07-24-2024 End: 07-24-2025 Aspartate aminotransferase [Enzymatic activity/volume] in Serum or Plasma by With P-5'-P Aspartate Aminotransferase Lab Routine High risk medication use Paroxysmal atrial fibrillation (Multi) Expected: 07/24/2024 (Approximate), Expires: 07/24/2025 [facility] Service Area Work Phone: Comment on above: Expected: 07/24/2024 (Approximate), Expi res: 07/24/2025 Start: 07-24-2024 End: 07-24-2025 Basic metabolic 2000 panel - Serum or Plasma Basic Metabolic Panel Lab Routine High risk medication use Paroxysmal atrial fibrillation (Multi) Expected: 07/24/2024 (Approximate), Expires: 07/24/2025 [facility] Work Phone: Comment on above: Expected: 07/24/2024 (Approximate), Expi res: 07/24/2025 Start: 07-24-2024 End: 07-24-2025 Complete Pulmonary Function Test (Spirometry/DLCO/Lung Volumes) Complete Pulmonary Function Test (Spirometry/DLCO/Lung Volumes) PFT Routine High risk medication use Paroxysmal atrial fibrillation (Multi) Expected: 07/24/2024 (Approximate), Expires: 07/24/2025 [facility] Work Phone: Comment on above: Expected: 07/24/2024 (Approximate), Expi res: 07/24/2025 Start: 07-24-2024 End: 07-24-2024 Patient encounter procedure 07/24/2024 2:00 PM EST Office Visit [facility] [address] [place] [phone] Brendon Baron DO [address] [place] [address] [facility] Start: 07-24-2024 End: 07-24-2025 Thyrotropin [Units/volume] in Serum or Plasma Thyroid Stimulating Hormone Lab Routine High risk medication use Paroxysmal atrial fibrillation (Multi) Expected: 07/24/2024 (Approximate), Expires: 07/24/2025 [facility] Work Phone: Comment on above: Expected: 07/24/2024 (Approximate), Expi res: 07/24/2025 Start: 07-24-2024 End: 07-24-2025 XR Chest 2 Views XR chest 2 views Imaging Routine High risk medication use Paroxysmal atrial fibrillation (Multi) Expected: 07/24/2024 (Approximate), Expires: 07/24/2025 [facility] Work Phone: Comment on above: Expected: 07/24/2024 (Approximate), Expi res: 07/24/2025 Start: 07-23-2024 End: 07-23-2024 Patient encounter procedure 07/23/2024 12:45 PM EST Office Visit [facility] [address] [facility] [place] [phone] Irving Fonseca W, DO [address] [place] [address] Basal cell carcinoma of skin of scalp and neck [facility] Comment on above: Basal cell carcinoma of skin of scalp an d neck Start: 05-21-2024 End: 05-21-2024 Patient encounter procedure [facility] Comment on above: Arrived Start: 03-29-2024 End: 12-27-2024 Aspartate aminotransferase [Enzymatic activity/volume] in Serum or Plasma by With P-5'-P Aspartate Aminotransferase Lab Routine Paroxysmal atrial fibrillation (Multi) High risk medication use Expected: 03/29/2024 (Approximate), Expires: 12/27/2024 [facility] Service Area Work Phone: Comment on above: Expected: 03/29/2024 (Approximate), Expi res: 12/27/2024 Start: 03-29-2024 End: 12-27-2024 Basic metabolic 2000 panel - Serum or Plasma Basic Metabolic Panel Lab Routine Paroxysmal atrial fibrillation (Multi) High risk medication use Expected: 03/29/2024 (Approximate), Expires: 12/27/2024 [facility] Work Phone: Comment on above: Expected: 03/29/2024 (Approximate), Expi res: 12/27/2024 Start: 03-29-2024 End: 12-27-2024 Lipid 1996 panel - Serum or Plasma Lipid Panel Lab Routine Mixed hyperlipidemia Expected: 03/29/2024 (Approximate), Expires: 12/27/2024 [facility] Work Phone: Comment on above: Expected: 03/29/2024 (Approximate), Expi res: 12/27/2024 Start: 03-29-2024 End: 12-27-2024 Thyrotropin [Units/volume] in Serum or Plasma Thyroid Stimulating Hormone Lab Routine Paroxysmal atrial fibrillation (Multi) High risk medication use Expected: 03/29/2024 (Approximate), Expires: 12/27/2024 [facility] Work Phone: Comment on above: Expected: 03/29/2024 (Approximate), Expi res: 12/27/2024 Start: 02-26-2024 COVID-19 Vaccine () COVID-19 Vaccine () [facility] Start: 02-26-2024 Covid-19 Vaccine () Covid-19 Vaccine () [facility] Start: 02-26-2024 Influenza vaccination [facility] Start: 02-14-2024 End: 02-14-2024 Patient encounter procedure 02/14/2024 1:15 PM EDT Office Visit [facility] [address] [place] [address] Bashir Girard MD [address] [place] [address] Arrived [facility] Comment on above: Arrived Start: 02-02-2024 Patient referral [facility] Work Phone: Start: 12-28-2023 End: 12-27-2025 NM Heart Perfusion W stress and W radionuclide IV Nuclear Stress Test Cardiac Nuclear Medicine Routine Chest pain, unspecified type Expected: 12/28/2023 (Approximate), Expires: 12/27/2025 [facility] Work Phone: Comment on above: Expected: 12/28/2023 (Approximate), Expi res: 12/27/2025 Start: 10-26-2023 [facility] Start: 09-14-2023 Patient referral [facility] Work Phone: Start: 09-03-2023 COVID-19 Vaccine () COVID-19 Vaccine () [facility] Start: 07-20-2023 FUV, Provider: Brendon Baron, Status: Pen, Time: 10:00 AM FUV, Provider: Brendon Baron, Status: Eddy, Time: 10:00 AM [facility] [place] [address] DO Work Phone: Start: 06-27-2023 Advance Directive Discussion Advance Directive Discussion [facility] Start: 04-21-2023 [facility] Start: 03-07-2023 FUV, Provider: Florence Norman, Status: Pen, Time: 9:00 AM FUV, Provider: Florence Norman, Status: Pen, Time: 9:00 AM [facility] [place] [address] DO Work Phone: Start: 01-03-2023 FUV, Provider: Florence Norman, Status: Pen, Time: 11:00 AM FUV, Provider: Florence Norman, Status: Pen, Time: 11:00 AM [facility] [place] [address] DO Work Phone: Start: 12-08-2022 BPTANISHA, Provider: LILLIANA MORALEZ EVENTS MANAGER 1,[id number], Status: Pen, Time: 11:15 AM BPCHECK, Provider: LILLIANA MORALEZ EVENTS MANAGER 1,[id number], Status: Pen, Time: 11:15 AM [facility] [place] [address] DO Work Phone: Start: 12-08-2022 EVENT BEBE, Provider: LILLIANA MORALEZ EVENTS MANAGER 1,[id number], Status: Pen, Time: 11:00 AM EVENT BEBE, Provider: LILLIANA MORALEZ EVENTS MANAGER 1,[id number], Status: Pen, Time: 11:00 AM [facility] [address] DO Work Phone: Start: 10-29-2022 [facility] Start: 10-28-2022 Hospital admission [facility] Start: 10-28-2022 Referral to appointment clerk [facility] Start: 10-28-2022 [facility] Start: 10-28-2022 Plain chest X-ray XR chest 2V* [facility] Start: 10-28-2022 XR Chest 2 Views [facility] Start: 07-15-2022 FUV, Provider: Brendon Baron, Status: Pen, Time: 10:20 AM FUV, Provider: Brendon Baron, Status: Pen, Time: 10:20 AM -[facility]erged With [facility] [place] [address] DO Work Phone: Start: 01-05-2022 FUV, Provider: Brendon Baron, Status: Pen, Time: 1:30 PM FUV, Provider: Brendon Baron, Status: Pen, Time: 1:30 PM -[facility]erged With [facility] [address] DO Work Phone: Start: 12-14-2021 FUV, Provider: Brendon Ceja, Status: Pen, Time: 8:30 AM FUV, Provider: Brendon Ceja, Status: Pen, Time: 8:30 AM [facility] [place] [address] DO Work Phone: Start: 11-20-2021 FUV, Provider: Brendon Ceja, Status: Pen, Time: 3:30 PM FUV, Provider: Brendon Ceja, Status: Pen, Time: 3:30 PM [facility] [place] [address] DO Work Phone: Start: 10-15-2021 EKG, Provider: LILLIANA MORALEZ EVENTS MANAGER 1,[id number], Status: Pen, Time: 1:00 PM EKG, Provider: LILLIANA MORALEZ EVENTS MANAGER 1,[id number], Status: Pen, Time: 1:00 PM [facility] [place] [address] DO Work Phone: Start: 10-07-2021 FUV, Provider: Florence Norman, Status: Pen, Time: 9:30 AM FUV, Provider: Florence Norman, Status: Pen, Time: 9:30 AM [facility] [place] [address] DO Work Phone: Start: 09-07-2021 HOLTER MON, Provider: LILLIANA MORALEZ EVENTS MANAGER 1,[id number], Status: Pen, Time: 9:30 AM HOLTER MON, Provider: LILLIANA MORALEZ EVENTS MANAGER 1,[id number], Status: Pen, Time: 9:30 AM [facility] [address] DO Work Phone: Start: 09-02-2021 FUV, Provider: Florence Norman, Status: Pen, Time: 9:00 AM FUV, Provider: Florence Norman, Status: Pen, Time: 9:00 AM -[facility]ed With [facility] [place] [address] DO Work Phone: Start: 07-01-2021 FUV, Provider: Brendon Baron, Status: Pen, Time: 11:20 AM FUV, Provider: Brendon Baron, Status: Pen, Time: 11:20 AM -[facility]ed With [facility] [place] [address] DO Work Phone: Start: 03-14-2018 Pneumococcal vaccination Pneumococcal Vaccine (2 of 2 - PCV) [facility] Start: 03-14-2018 Pneumococcal Vaccine: 65+ Years (2 - PCV) Pneumococcal Vaccine: 65+ Years (2 - PCV) [facility] Start: 03-14-2018 Pneumococcal Vaccine: 65+ Years (2 of 2 - PCV) Pneumococcal Vaccine: 65+ Years (2 of 2 - PCV) [facility] Start: 2016 RSV High Risk: (Elderly (60+) or Population) (1 - 1-dose 75+ series) RSV High Risk: (Elderly (60+) or Population) (1 - 1-dose 75+ series) [facility] Start: 2016 RSV Vaccine (1 - 1-dose 75+ series) RSV Vaccine (1 - 1-dose 75+ series) [facility] Start: 01-07-2015 Zoster Vaccines (2 of 3) Zoster Vaccines (2 of 3) [facility] Start: 2001 RSV patients and/or patients aged 60+ years (1 - 1-dose 60+ series) RSV patients and/or patients aged 60+ years (1 - 1-dose 60+ series) [facility] Start: 10-14-1963 DTaP/Tdap/Td Vaccines (1 - Tdap) DTaP/Tdap/Td Vaccines (1 - Tdap) [facility] Start: 10-14-1959 Anxiety Screening Anxiety Screening [facility] Start: 10-14-1959 Depression Screening Depression Screening [facility] Start: 10-14-1959 Diabetes mellitus screening Diabetes Screening [facility] Start: 1941 Lipid panel Lipid Panel [facility] Start: 1941 Medicare Annual Wellness Visit Medicare Annual Wellness Visit (AWV) [facility] Start: 1941 Thyroid stimulating hormone measurement TSH Level [facility] Bacteria identified in Stool by Culture [facility] Calculated LDL cholesterol level [facility] Cholesterol.total/Ch olest stuart in HDL [Mass Ratio] in Serum or Plasma [facility] Dermatopathology exam Dermatopat hology exam Pathology and Cytology Timed Neoplasm of unspecified behavior of bone, soft tissue, and skin Release Upon Ordering for 1 Occurrences starting 05/21/2024 [facility] Work Phone: Comment on above: Release Upon Ordering for 1 Occurrences starting 05/21/2024 Elastase.pancreatic [Mass/mass] in Stool [facility] Glucose measurement estimated from glycated hemoglobin [facility] Hemoglobin A1c/Hemoglobin.total in Blood [facility] End: 01-02-2024 NM Heart Perfusion W stress and W radionuclide IV [facility] Service Area Work Phone: Comment on above: Once for 1 Occurrences starting 01/02/20 until 01/02/2024 Patient Education [facility] Work Phone: Patient referral [facility] Work Phone: VLDL cholesterol measurement [facility] XR Abdomen Single view [facility] Immunizations Immunization Date Immunization Notes Care Provider Fa shahab 04-26-2024 Seasonal trivalent influenza vaccine, adjuvanted, preservative free Irving Fonseca DO Work Phone: [facility] 04-26-2024 influenza virus vaccine, unspecified formulation Bashir Girard MD Work Phone: [facility] 05-05-2023 Influenza, Seasonal, Quadrivalent, Adjuvanted Irving Fonseca DO Work Phone: [facility] 05-05-2023 SARS-COV-2 (COVID-19 ) vaccine, mRNA, spike protein, LNP, PF, 50 mcg/0.5 mL Irving Fonseca DO Work Phone: [facility] 05-05-2023 influenza virus vaccine, unspecified formulation Brendon Baron DO Work Phone: [facility] Work Phone: 05-04-2023 influenza virus vaccine, unspecified formulation DO Irving Canela Work Phone: [facility] 05-04-2023 influenza, high dose seasonal, preservative-free Irving Canela Other [facility] [employer] Other 04-29-2022 COVID-19 Moderna (BIvalent) Irving Canela Other [facility] 04-29-2022 Moderna SARS-CoV-2 Vaccination Brendon Baron DO Work Phone: [facility] Work Phone: 04-15-2022 Fluad Quadrivalent 0 .5 ML Intramuscular Prefilled Syringe Irving Canela Work Phone: [facility] [employer] DO Work Phone: 04-15-2022 influenza virus vaccine, split virus (incl. purified surface antigen) Irving Canela Other [facility] [employer] Other 04-15-2022 influenza virus vaccine, unspecified formulation DO Irving Canela Work Phone: [facility] 04-15-2022 influenza, injectabl e, quadrivalent, preservative free Brendon Baron DO Work Phone: [facility] Work Phone: 03-27-2022 influenza virus vaccine, unspecified formulation DO Irving Canela Work Phone: [facility] 03-27-2022 influenza, high dose seasonal, preservative-free Irving Canela Work Phone: [facility] [employer] 250 DO Work Phone: Comment on above: Series: 08-14-2021 Moderna SARS-CoV-2 Vaccination Irving Fonseca DO Work Phone: [facility] 07-14-2021 Moderna SARS-CoV-2 Vaccination Irving Fonseca DO Work Phone: [facility] 04-17-2021 Moderna COVID-19 Vaccine 100 MCG/0.5ML Intramuscular Suspension Irving Canela Work Phone: [facility] 03-30-2021 influenza virus vaccine, split virus (incl. purified surface antigen) Irving Canela Other [facility] [employer] Other 03-30-2021 influenza virus vaccine, unspecified formulation DO Irving Canela Work Phone: [facility] 03-27-2021 influenza virus vaccine, unspecified formulation Irving Fonseca DO Work Phone: [facility] 08-14-2020 Moderna COVID-19 Vaccine 100 MCG/0.5ML Intramuscular Suspension Irving Canela Work Phone: [facility] 07-14-2020 Moderna COVID-19 Vaccine 100 MCG/0.5ML Intramuscular Suspension Irving Canela Work Phone: [facility] 04-14-2020 influenza virus vaccine, split virus (incl. purified surface antigen) Irving Canela Other [facility] [employer] Other 04-14-2020 influenza virus vaccine, unspecified formulation DO Irving Canela Work Phone: [facility] 03-27-2020 influenza virus vaccine, unspecified formulation Irving Fonseca DO Work Phone: [facility] 09-03-2019 tetanus toxoid, redu praneeth diphtheria toxoid, and acellular pertussis vaccine, adsorbed Irving Fonseca DO Work Phone: [facility] 03-07-2019 influenza, high dose seasonal, preservative-free Brendon Tod DO Work Phone: [facility] Work Phone: 03-07-2019 Seasonal trivalent influenza vaccine, adjuvanted, preservative free Irving Canela Work Phone: [facility] [employer] DO Work Phone: 02-25-2019 influenza virus vaccine, unspecified formulation Irving Fonseca DO Work Phone: [facility] 09-07-2018 zoster vaccine recombinant Irving Fonseca DO Work Phone: [facility] 06-24-2018 zoster vaccine recombinant [facility] Canela [facility] Work Phone: 06-07-2018 zoster vaccine recombinant Irving Fonseca DO Work Phone: [facility] 04-11-2018 influenza, injectabl e, quadrivalent, preservative free Irving Canela Work Phone: [facility] DO Work Phone: 03-27-2018 influenza virus vaccine, unspecified formulation Irving Fonseca DO Work Phone: [facility] 03-08-2018 influenza virus vaccine, split virus (incl. purified surface antigen) Irving Canela Other [facility] [employer] Other 03-08-2018 influenza virus vaccine, unspecified formulation DO Irving Canela Work Phone: [facility] 04-27-2017 influenza virus vaccine, unspecified formulation Irving Fonseca DO Work Phone: [facility] 03-14-2017 influenza virus vaccine, split virus (incl. purified surface antigen) Irving Canela Other [facility] [employer] Other 03-14-2017 influenza virus vaccine, unspecified formulation DO Irving Canela Work Phone: [facility] 03-14-2017 influenza, high dose seasonal, preservative-free Irving Canela [facility] Work Phone: 03-14-2017 pneumococcal polysaccharide vaccine, 23 valent Irving Canela Work Phone: [facility] 03-27-2016 influenza virus vaccine, unspecified formulation Irving Fonseca DO Work Phone: [facility] 03-12-2016 influenza virus vaccine, split virus (incl. purified surface antigen) Irving Canela Other [facility] [employer] Other 03-12-2016 influenza virus vaccine, unspecified formulation DO Irivng Canela Work Phone: [facility] 03-12-2016 pneumococcal conjuga te vaccine, 13 valent Irving Canela Other [facility] 03-26-2015 influenza virus vaccine, split virus (incl. purified surface antigen) Irving Canela Other [facility] [employer] Other 03-26-2015 influenza virus vaccine, unspecified formulation DO Irving Canela Work Phone: [facility] 11-12-2014 zoster vaccine, live Benjami thomas Canela Work Phone: [facility] 04-03-2014 tetanus and diphther ia toxoids, adsorbed, preservative free, for adult use (5 Lf of tetanus toxoid and 2 Lf of diphtheria toxoid) Irving Canela Other [facility] 04-03-2009 influenza virus vaccine, unspecified formulation Irving Fonseca DO Work Phone: [facility] 03-27-2008 influenza virus vaccine, unspecified formulation Irving Fonseca DO Work Phone: [facility] 11-07-2007 pneumococcal vaccine , unspecified formulation Irving Fonseca DO Work Phone: [facility] Healthcare Payers Date Payer Category Payer Medicare supplementa l policy (as second payer) [employer] SUPPLEMENT [id number] 2019 Medicare [id number] 2015 Private Health Insurance [id number] 2006 Medicare [id number]. [id number] 1959 Medicare [id number] 1959 Private Health Insurance [id number] 1959 Self-pay [id number] 1941 Unknown [id number] 2.16.840.1.575993.3.579. 2.647 1941 Unknown [id number] 2.16.840.1.170395.3.579. 2.647 1941 Unknown [id number] 2.16.840.1.793198.3.579. 2.593 1941 Unknown [id number] 2.16.840.1.439684.3.579. 2.593 1941 Unknown [id number] 2.16.840.1.021625.3.579. 2.593 1941 Unknown [id number] 2.16.840.1.143344.3.579. 2.593 1941 Unknown [id number] 2.16.840.1.364908.3.579. 2.593 1941 Unknown [id number] 2.16.840.1.426170.3.579. 2.593 1941 Unknown [id number] 2.16.840.1.191477.3.579. 2.593 1941 Unknown [id number] 2.16.840.1.078059.3.579. 2.593 1941 Unknown [id number] 2.16.840.1.955541.3.579. 2.593 1941 Unknown [id number] 2.16.840.1.417356.3.579. 2.593 1941 Unknown [id number] 2.16.840.1.318079.3.579. 2.593 1941 Unknown [id number] 2.16.840.1.619887.3.579. 2.593 1941 Unknown [id number] 2.16.840.1.360351.3.579. 2.593 1941 Unknown [id number] 2.16.840.1.954841.3.579. 2.356 1941 Unknown [id number] 2.16.840.1.925305.3.579. 2.356 1941 Unknown [id number] 2.16.840.1.472654.3.579. 2.356 1941 Unknown [id number] 2.16.840.1.677498.3.579. 2.356 1941 Unknown [id number] 2.16.840.1.997890.3.579. 2.356 1941 Unknown [id number] 2.16.840.1.523335.3.579. 2.356 1941 Unknown [id number] 2.16.840.1.059929.3.579. 2.356 1941 Unknown [id number] 2.16.840.1.994610.3.579. 2.1246 1941 Unknown [id number] 2.16.840.1.478814.3.579. 2.124 1941 Unknown [id number] 2.16.840.1.254250.3.579. 2.1245 1941 Unknown [id number] 2.16.840.1.150852.3.579. 2.124 1941 Unknown [id number] 2.16.840.1.468999.3.579. 2.1245 1941 Unknown [id number] 2.16.840.1.338615.3.579. 2.1243 1941 Unknown [id number] 2.16.840.1.827587.3.579. 2.1243 1941 Unknown [id number] 2.16.840.1.957747.3.579. 2.727 1941 Unknown [id number] 2.16.840.1.631628.3.579. 2.1258 1941 Unknown [id number] 2.16.840.1.200633.3.579. 2.1258 1941 Unknown [id number] 2.16.840.1.353638.3.579. 2.1258 1941 Unknown [id number] 2.16.840.1.373579.3.579. 2.1258 1941 Unknown [id number] 2.16.840.1.973833.3.579. 2.125 1941 Unknown [id number] 2.16.840.1.037017.3.579. 2.1259 Medicare [id number] Private Health Insurance [facility] [id number] Unknown Unknown [id number] 2.16.840.1.924689.3.579. 2.593 Unknown [id number] 2.16840.1.509721.3.579. 2.531 Unknown [id number] 2.16.840.1.640914.3.579. 2.531 Unknown [id number] 2.16.840.1.106841.3.579. 2.531 Unknown [id number] 2.16.840.1.470342.3.579. 2.531 Unknown [id number] 2.16.840.1.189068.3.579. 2.531 Social History Date Type Detail Facility Start: 07-25-2023 End: 07-24-2024 Consumes alcohol occasionally Consumes alcohol occasionally [facility] [place] [address] DO Work Phone: Comment on above: 1-2 cups daily; quit 1995ish; Start: 03-10-2022 End: 05-12-2023 Tobacco smoking status ARIS Never smoked tobacco (finding) [facility] Start: 1940 Sex Assigned At Male F [facility] Start: 07-25-2023 End: 07-24-2024 Sex Assigned At [facility] Start: 04-21-2023 End: 12-28-2023 Tobacco smoking status ARIS Ex-smoker (finding) [facility] History of tobacco use Current smoker [facility] Work Phone: History of tobacco use Cigarette Smoker U [facility] Work Phone: Start: 07-25-2023 End: 07-24-2024 Alcohol intake Current drinker of alcohol (finding) [facility] Work Phone: Start: 06-24-2023 Alcohol Comment occasional [facility] Work Phone: Start: 1940 Sex Assigned At Not on file [facility] Work Phone: Start: 07-15-2023 End: 07-24-2024 Exposure to SARS-CoV-2 (event) Not sure [facility] National Score (1-100), lower number is lower risk 63 [facility] Start: 05-17-2024 End: 07-19-2024 Sex Male (finding) [facility] Start: 05-12-2023 End: 12-28-2023 Tobacco use and exposure Smokeless tobacco non-user [facility] Work Phone: NEGATED: Highlighted rowStart: NINF History of tobacco use Passive smoker [facility] Goals Date Patient Goal Desired Activity /State Clinical Notes 12-30-2021 to 07-24-2024 Brendon Baron, DO - 07/24/2024 2:00 PM ESTPatient InstructionsIrving Fonseca, DO - 07/23/2024 12:45 PM Flip Wagner MD - 07/19/2024 1:30 PM EST Note Date & Type Note Facility 07-24-2024 History of Present illness Narrative Subjective Valentín Buckner is a 83 y.o. male Chief Complaint Annual Exam 83-year-old gentleman returns for follow-up, he has an elective skin graft surgery to be performed tomorrow by Dr. Torres, following extensive resection for basal cell cancer on his right anterior neck. Patient is otherwise doing well from a cardiovascular standpoint even underwent stress imaging December 2023 that was completely normal with normal ejection fraction. He has a history of ASHD with three-vessel PCI's in [place], last catheterization performed by myself, from 06/16 is reviewed revealing patent obtuse [...] A. fib Today's ECG reveals sinus bradycardia rate of 54 with a QT corrected interval 436 ms with first-degree AV block, prior inferior infarction pattern age undetermined. Recommendations, patient may proceed with his elective skin grafting, apixaban has already been on hold for 2 days as well as aspirin, will follow-up otherwise in 1 year Review of Systems All other systems reviewed and are negative. Vitals: 01/28/25 1415 BP: 110/62 BP Location: Left arm Patient Position: Sitting Pulse: 54 Weight: 89.8 kg (198 lb) EKG done in office today Objective Physical Exam Constitutional: Appearance: Normal appearance. HENT: Nose: Nose normal. Neck: Vascular: No carotid bruit. Cardiovascular: Rate and Rhythm: Normal rate. Pulses: Normal pulses. Heart sounds: Normal heart sounds. Pulmonary: Effort: Pulmonary effort is normal. Abdominal: General: Bowel sounds are normal. Palpations: Abdomen is soft. Musculoskeletal: General: Normal range of motion. Cervical back: Normal range of motion. Right lower leg: No edema. Left lower leg: No edema. Skin: General: Skin is warm and dry. Neurological: General: No focal deficit present. Mental Status: He is alert. Psychiatric: Mood and Affect: Mood normal. Behavior: Behavior normal. Thought Content: Thought content normal. Judgment: Judgment normal. Allergies Clopidogrel Current Medications Current Outpatient Medications: amiodarone (Pacerone) 200 mg tablet, Take 0.5 tablets (100 mg) by mouth 3 times a week. Take one tablet by mouth every Tue, Tue, Tue, Disp: 40 tablet, Rfl: 1 amLODIPine (Norvasc) 2.5 mg tablet, TAKE 1 TABLET BY MOUTH EVERY DAY DIRECTED, Disp: 90 tablet, Rfl: 3 apixaban (Eliquis) 5 mg tablet, Take 1 tablet (5 mg) by mouth 2 times a day., Disp: , Rfl: aspirin 81 mg EC tablet, Take 1 tablet (81 mg) by mouth. Take one tablet by mouth every Tue, Tue, Tue, Disp: , Rfl: atorvastatin (Lipitor) 40 mg tablet, Take 1 tablet (40 mg) by mouth once daily at bedtime., Disp: 90 tablet, Rfl: 3 cholecalciferol (Vitamin D-3) 50 mcg (2,000 unit) capsule, Take 1 capsule (50 mcg) by mouth once daily., Disp: , Rfl: isosorbide mononitrate ER (Imdur) 30 mg 24 hr tablet, Take 1 tablet (30 mg) by mouth once daily., Disp: 90 tablet, Rfl: 3 loratadine 10 mg capsule, Take 1 tablet by mouth once daily., Disp: , Rfl: pantoprazole (ProtoNix) 40 mg EC tablet, Take 1 tablet (40 mg) by mouth once daily., Disp: , Rfl: traZODone (Desyrel) 50 mg tablet, Take 1 tablet (50 mg) by mouth once daily at bedtime., Disp: , Rfl: zinc gluconate 50 mg tablet, Take 1 tablet (50 mg) by mouth once daily., Disp: , Rfl: zolpidem (Ambien) 5 mg tablet, 1 tablet (5 mg) once daily at bedtime., Disp: , Rfl: Assessment/Plan 1. 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 Bradycardia Follow Up In Cardiology 3. H/O non-ST elevation myocardial infarction (NSTEMI) Follow Up In Cardiology 4. S/P PTCA (percutaneous transluminal coronary angioplasty) Follow Up In Cardiology 5. High risk medication use 6. Paroxysmal atrial fibrillation (Multi) 7. Mixed hyperlipidemia 8. Former smoker 9. BMI 29.0-29.9,adult Scribe Attestation By signing my name below, I, Bita Monroy RN , Scribe attest that this documentation has been prepared under the direction and in the presence of Brendon Baron DO. Provider Attestation - Scribe documentation All medical record entries made by the Scribe were at my direction and personally dictated by me. I have reviewed the chart and agree that the record accurately reflects my personal performance of the history, physical exam, discussion and plan. documented in this encounter [facility] Work Phone: 07-24-2024 Instructions Bita Cox RN - 07/24/2024 2:00 PM EST Please bring all medicines, vitamins, and herbal supplements with you when you come to the office. Prescriptions will not be filled unless you are compliant with your follow up appointments or have a follow up appointment scheduled as per instruction of your physician. Refills should be requested at the time of your visit. BMI was above normal measurement. Current weight: 89.8 kg (198 lb) Weight change since last visit (-) denotes wt loss 3 lbs Weight loss needed to achieve BMI 25: Lbs Weight loss needed to achieve BMI 30: Lbs Provided instructions on dietary changes Provided instructions on exercise. documented in this encounter [facility] Work Phone: 07-23-2024 History of Present illness Narrative Allergies as of 07/23/2024 - Reviewed 07/19/2024 Allergen Reaction Noted Prednisolone 02/08/2023 Clopidogrel Hives, Other, and Rash 08/27/2016 Past Medical History: Diagnosis Date Actinic keratosis Basal cell carcinoma Melanoma (CMS/HCC) Current Outpatient Medications: ALPRAZolam (Xanax) 0.25 MG tablet, TAKE 1 TALBET BY MOUTH AT BEDTIME, Disp: , Rfl: amiodarone (Pacerone) 200 MG tablet, TAKE 1/2 TABLET BY MOUTH TUESDAY THROUGH TUESDAY ONLY, Disp: , Rfl: amitriptyline (Elavil) 10 MG tablet, Take 1 tablet by mouth at bedtime., Disp: , Rfl: amLODIPine (Norvasc) 10 MG tablet, Take 1 tablet by mouth in the morning., Disp: , Rfl: Apixaban (ELIQUIS PO), Take by mouth, Disp: , Rfl: aspirin 81 MG chewable tablet, Chew 1 tablet every day by oral route., Disp: , Rfl: atorvastatin (Lipitor) 10 MG tablet, Take 1 tablet by mouth in the morning., Disp: , Rfl: atorvastatin (Lipitor) 40 MG tablet, Take 40 mg by mouth at bedtime., Disp: , Rfl: cephalexin (Keflex) 500 MG capsule, Take 1 capsule, by mouth, bid, 10 days, Disp: 20 capsule, Rfl: 0 clopidogrel (Plavix) 75 MG tablet, Take 1 tablet every day by oral route for 90 days. (Patient not taking: Reported on 07/19/2024), Disp: , Rfl: fluorouracil (Efudex) 5 % cream, Apply to directed areas on the scalp twice a day x 14 days. Dispense 30 day supply but only use for 14 days., Disp: 40 g, Rfl: 0 fluorouracil (Efudex) 5 % cream, Apply to directed areas on the scalp twice a day x 14 days. Dispense 30 day supply but only use for 14 days., Disp: 40 g, Rfl: 0 fluorouracil (Efudex) 5 % cream, Apply to directed areas on the scalp twice a day x 14 days. Dispense 30 day supply but only use for 14 days., Disp: 40 g, Rfl: 0 guaiFENesin-codeine (Robitussin-AC) 100-10 MG/5ML syrup, , Disp: , Rfl: Hydrocortisone Acetate 1 % cream, Apply thin layer to affected areas, twice a day as needed for flares, 30 day supply, Disp: 28.4 g, Rfl: 11 iron polysaccharides (Nu-Iron,Niferex) 150 MG capsule, TAKE 1 CAPSULE BY MOUTH EVERY DAY FOR 30 DAYS, Disp: , Rfl: isosorbide mononitrate ER (Imdur) 30 MG 24 hr tablet, Take 1 tablet by mouth in the morning., Disp: , Rfl: loratadine (Claritin) 10 MG tablet, Take 10 mg by mouth in the morning., Disp: , Rfl: Loratadine 10 MG capsule, Take 1 capsule every day by oral route., Disp: , Rfl: nitroglycerin (Nitrodur) 0.4 MG/HR patch, Place 1 patch on the skin in the morning., Disp: , Rfl: nitroglycerin (Nitrostat) 0.4 MG SL tablet, DISSOLVE 1 TABLET UNDER THE TONGUE NEEDED FOR CHEST PAIN, Disp: , Rfl: pantoprazole (ProtoNix) 40 MG EC tablet, TAKE 1 TABLET BY MOUTH DAILY ON AN EMPTY STOMACH FOLLOWED IN 30 MINUTES BY BREAKFAST, Disp: , Rfl: prasugrel (Effient) 10 MG tablet, as directed Orally, Disp: , Rfl: Tamiflu 75 MG capsule, , Disp: , Rfl: Past Surgical History: Procedure Laterality Date BACK SURGERY CORONARY STENT PLACEMENT 05/2016 PROSTATE SURGERY prostate cancer Social History Socioeconomic History Marital status: Spouse name: Not on file Number of children: Not on file Years of education: Not on file Highest education level: Not on file Occupational History Not on file Tobacco Use Smoking status: Never Passive exposure: Never Smokeless tobacco: Never Vaping Use Vaping status: Never Used Substance and Sexual Activity Alcohol use: Yes Drug use: Not on file Sexual activity: Not on file Other Topics Concern Not on file Social History Narrative Not on file Social Drivers of Health Financial Resource Strain: Not on file Food Insecurity: Not on file Transportation Needs: Not on file Physical Activity: Not on file Stress: Not on file Social Connections: Not on file Intimate Partner Violence: Not on file Housing Stability: Not on file Subjective Patient ID: HPI Patient is an 83-year-old male referred from Dermatology following Mohs resection of a skin cancer of the right upper neck. Defect about 2.5 or so cm in size down through the platysma. Review of Systems ROS The specialty specific review of systems is noncontributory except for that recorded in the intake questionnaire and /or described in the history of present illness. Objective ENT Physical Exam Physical Exam Constitutional: Appearance: Normal appearance. HENT: Head: Atraumatic. Ears: External ear shows no abnormality Bilateral ear canals are clear Tympanic membranes intact, no evidence of middle ear fluid or other pathology. Nose: External nose appears to be normal Nares patent. Septal deviation to the left No evidence of polyp, mass or pus bilaterally. Oral Cavity: No evidence of trismus Lips appear normal Dental Tongue of normal size and configuration, floor of mouth mucosa clear. Buccal mucosa shows no evidence of ulceration, mass or other abnormality Hard palate soft palate mucosa intact with no evidence of mass, ulceration or other abnormality Uvula of normal size and configuration Oropharynx: Tonsils surgically absent Posterior pharyngeal wall normal Neck: No evidence of palpable abnormality Thyroid without evidence of thyromegaly or mass. No cervical lymphadenopathy present. Cardiovascular: Rate and Rhythm: Normal rate and regular rhythm. . Skin: General: See description of skin defect of right neck above Neurological: General: No focal deficit present. Mental Status: alert and oriented to person, place, and time. Assessment/Plan Valentín was seen today for mohs reconstruction. Diagnoses and all orders for this visit: Mohs defect of neck Comments: I will be able to close this the small flap. Orders: - Ambulatory referral to ENT The r/b of excision of skin cancer with recontruction(primary closure, skin graft or flap) were discussed with the patient. These include but are not limited to disfigurment, scarring, poor cosemetic results, difficuty with function of the organ/site involved with the resection a/o flap, bleeding, infection, of the flap, numbness, neuro/vascular injury, need for additional surgery a/o treatment, etc. The pateint has consented to proceed. documented in this encounter [facility] 07-19-2024 History of Present illness Narrative Images from the original note were not included. Mohs Surgery Location: Anterior neck Date of biopsy: 05/21/2024 Diagnosis: Basal Cell Carcinoma All pertinent medical history, medications, and allergies were reviewed. General Exam: alert, oriented to person, place, and time, normal affect, well appearing Unaccompanied A focused exam completed based on patient reported problems, see below: 1. Basal cell carcinoma of skin of scalp and neck Anterior neck Erythematous macule at the biopsy site. Mohs surgery Consent obtained: written (The rationale for Mohs as well as the risks, benefits, and alternatives. The risks of infection, scarring, bleeding, prolonged wound healing, incomplete removal, allergy to anesthesia or meds, nerve injury, and recurrence were addressed.) [place] Protocol: Procedure explained and questions answered to patient or proxy's satisfaction: Yes Test results available and properly labeled: Yes Pathology report reviewed: Yes Photo or diagram used for site identification: Yes Site/side marked: Yes Anticoagulation: Is the patient taking prescription anticoagulant and/or aspirin prescribed/recommended by a physician? Yes (81 mg ASA, eliquis, Effient) Was the anticoagulation regimen changed prior to Mohs? No Anesthesia: Anesthesia method: local infiltration Local anesthetic: lidocaine 1% WITH epi and sodium bicarbonate Procedure Details: Biopsy accession number: [id number] Biopsy lab: [facility] Date of biopsy: 05/21/2024 Frozen section biopsy performed: Yes Specimen debulked: No Pre-Op diagnosis: basal cell carcinoma BCC subtype: nodular and infiltrative MohsAIQ Surgical site (if tumor spans multiple areas, please select predominant area): neck Surgery side: right Surgical site (from skin exam): Anterior neck Pre-operative length (cm): 1.3 Pre-operative width (cm): 0.7 Indications for Mohs surgery: anatomic location where tissue conservation is critical and aggressive histology Previously treated? No Mohs Appropriate Use Criteria Score: 9 Details of micrographic surgery: Mohs accession number: [id number] Micrographic Surgery Details: Post-operative length (cm): 2.8 Post-operative width (cm): 2.2 Number of Mohs stages: 3 Stage 1 Comments: The area was prepped with Betadine, draped in a sterile fashion, and infiltrated with local anesthetic. Sterile technique was used throughout the procedure. The marked area of clinical tumor with a small rim of clinically normal surrounding skin was removed using Mohs technique with beveled edges. Hash acosta were placed for orientation of the specimen. Hemostasis was achieved with electrodessication. After hemostasis, the defect was measured and recorded, a temporary sterile dressing was placed over the wound, and the patient was escorted to the waiting area. The specimen was oriented, mapped, and if necessary, divided into sections. A Mohs map was prepared. The specimen was placed in a labeled jhonny dish and was taken to the Mohs lab where it was chromacoded and processed. Mohs sections were prepared with serial tissue sections, stained, and evaluated by Dr. Wagner for interpretation of deep and peripheral margins. The Mohs map was marked accordingly. Amount of lidocaine used: 2.6 cc Estimated blood loss: <1.0 cc Defect size: 1.3 x 1.2 cm Number of blocks per stage: 1 Number of positive blocks: 1 Tumor features identified on Mohs section: basal carcinoma Tumor features identified on Mohs section comment: nodular pattern Depth of defect after stage: dermis Stage 2 Comments: The patient returned to the procedure room, the dressing was removed, the tumor area was re-prepped and draped, and anesthesia was assessed and augmented as necessary. A layer of tissue around the positive margin(s) was removed, and the tissue was oriented, mapped, and processed in an identical fashion as for Stage 1. Hemostasis was achieved and dressing placed as in Stage 1. The patient was escorted to the waiting area. As with Stage 1, Mohs sections were prepared with serial tissue sections, stained, and evaluated by Dr. Wagner for interpretation of deep and peripheral margins. The Mohs map was updated. Assistants: Lev Mckenzie LPN Amount of lidocaine used: 2.4 cc Estimated blood loss: < 1.0 cc Defect size: 2.3 x 2.0 cm Number of blocks: 1 Number of positive blocks: 1 Tumor features identified on Mohs section: basal carcinoma Tumor features identified on Mohs section comment: entire deep margin Depth of defect after stage: subcutaneous fat Stage 3 Comments: The patient returned to the procedure room, the dressing was removed, the tumor area was re-prepped and draped, and anesthesia was assessed and augmented as necessary. A layer of tissue around the positive margin(s) was removed, and the tissue was oriented, mapped, and processed in an identical fashion as for Stage 1. Hemostasis was achieved and dressing placed as in Stage 1. The patient was escorted to the waiting area. As with Stage 1, Mohs sections were prepared with serial tissue sections, stained, and evaluated by Dr. Wagnre for interpretation of deep and peripheral margins. The Mohs map was updated. Assistants: Lev Mckenzie LPN Amount of lidocaine used: 2.5 cc Estimated blood loss: < 1.0 cc Defect size: 2.8 x 2.2 cm Number of blocks: 1 Number of positive blocks: 0. Tumor free margins were obtained and the Mohs procedure was considered complete. Tumor features identified on Mohs section: no tumor identified Depth of defect after stage: subcutaneous fat Patient tolerance of procedure: tolerated well, no immediate complications Reconstruction: Was the defect reconstructed? Yes Was reconstruction performed by the same Mohs surgeon? No If no, what is the specialty of the surgeon who did the reconstruction? ENT facial plastics When was reconstruction performed? different day Antibiotics: Were antibiotics given on the day of surgery? Yes When were antibiotics given? post-operative cephalexin (Keflex) 500 MG capsule Take 1 capsule, by mouth, bid, 10 days Ambulatory referral to ENT Mohs Post Operative Type of repair: Referred for repair to Nohemy Fonseca DO Wound Care: A pressure dressing was placed on the surgical wound. Post-operative instructions were given in writing and were reviewed with the patient. A follow-up appointment was made, and instructions were given to follow-up sooner if necessary. Next visit: 08/27/2024 documented in this encounter [facility] 05-21-2024 History of Present illness Narrative Images from the original note were not included. Skin Check Location: Patient requests a full body skin examination Dermatologic history: history of Actinic Keratosis, history of Squamous Cell Carcinoma, history of Melanoma Last visit: 02/14/2024 Melanoma History Location: right shoulder Date of Melanoma dx: 08/2017 Melanoma details: Malignant Melanoma Breslow's depth: 0.6 mm Mitotic rate: 0/mm squared Ulceration: not present Melanoma treatment: wide excision All pertinent medical history, medications, and allergies were reviewed. General Exam: alert, oriented to person, place, and time, normal affect, well appearing Unaccompanied Areas not examined despite medical recommendation: Scalp, Examined Right leg Examined Head, Face Examined Left leg Examined Neck Examined Right foot Examined Chest Examined Left foot Examined Back Examined Buttocks Examined Abdomen Examined Digits,nails: Examined Right arm Examined Left arm Examined Lymphatics: examined Hands Examined no cervical lymphadenopathy, no supraclavicular lymphadenopathy, no axillary lymphadenopathy 1. Seborrheic keratosis Stuck on verrucous, escobar-brown papules and plaques. Patient was counseled regarding these benign growths. Removal is normally not necessary, but they may be removed if they are symptomatic or for cosmetic reasons. 2. Lentigines Scattered escobar macules in sun-exposed areas. The patient was informed that lentigines are benign pigmented lesions that occur on sun-exposed and sun-damaged skin. No treatment is necessary. Recommended regular use of broad spectrum sunscreen SPF 30 or higher 3. History of SCC (squamous cell carcinoma) of skin Right Cheek No evidence of recurrence at SCC scar. The patient was counseled that scars from excisional sites of nonmelanoma skin cancers should be monitored closely for recurrence. The patient was instructed to contact the office for any new, changing, or symptomatic moles. The patient was also instructed to contact the office for any new lesions that develop within or around the previous surgery scar. 4. History of malignant melanoma of skin Right Shoulder No evidence of recurrence at melanoma scar. The patient was counseled that scars from excisional sites of melanoma should be monitored closely for recurrence. The patient was instructed to contact the office for any new, changing, or symptomatic moles. The patient was also instructed to contact the office for any new lesions that develop within or around the previous melanoma scar. 5. Actinic keratosis (8) Head - Anterior (Face), Left Forearm - Anterior (2), Mid Frontal Scalp, Mid Occipital Scalp (2), Mid Parietal Scalp (2) Erythematous scaly papules Patient was counseled regarding these sun-induced growths that can develop into squamous cell carcinoma if left untreated. Discussed treatment with cryotherapy. It was emphasized that any treated lesions that fail to resolve should be re-evaluated. Cryotherapy performed today; see procedure note Diagnosis: Actinic keratosis Indication: Precancerous Location: see skin exam Consent: Verbal consent was obtained and risks were discussed, including, but not limited to risks of scarring, darker or farm machine tender pigmentary changes, recurrence, incomplete removal and infection. Method: Liquid nitrogen was used to treat the lesion(s) with two 5-10 second freeze-thaw cycles. Number of lesions treated: 8 Post-procedure instructions: Instructions were given orally and in writing. The office will be contacted if the lesion fails to resolve despite treatment, or if a side effect develops such as abnormal crusting, scabbing, redness or tenderness Cryotherapy, skin lesion - Head - Anterior (Face), Left Forearm - Anterior (2), Mid Frontal Scalp, Mid Occipital Scalp (2), Mid Parietal Scalp (2) Related Medications fluorouracil (Efudex) 5 % cream Apply to directed areas on the scalp twice a day x 14 days. Dispense 30 day supply but only use for 14 days. fluorouracil (Efudex) 5 % cream Apply to directed areas on the scalp twice a day x 14 days. Dispense 30 day supply but only use for 14 days. fluorouracil (Efudex) 5 % cream Apply to directed areas on the scalp twice a day x 14 days. Dispense 30 day supply but only use for 14 days. 6. Neoplasm of unspecified behavior of bone, soft tissue, and skin anterior neck [place] pearly papule Lesion biopsy Type of biopsy: tangential Informed consent: discussed and consent obtained Informed consent comment: The risks and benefits of the biopsy were discussed. Risks include but are not limited to bleeding, infection, scarring, pain, and nerve damage. An opportunity to ask questions prior to the procedure was permitted and all questions were answered. Patient was prepped and draped in usual sterile fashion: area cleansed with alcohol. Anesthesia: the lesion was anesthetized in a standard fashion Anesthetic: 1% lidocaine w/ epinephrine 1-100,000 buffered w/ 8.4% NaHCO3 Instrument used: DermaBlade Hemostasis achieved with: electrodesiccation Outcome: patient tolerated procedure well Outcome comment: The specimen was placed in a prelabeled formalin container to be sent for pathology Post-procedure details: sterile dressing applied and wound care instructions given Post-procedure details comment: Emphasized need to contact clinic for any signs of infection, uncontrollable bleeding, or complications. Dressing type: bandage Additional details: Photo taken Amount of lidocaine used: 1.0 cc Specimen A - Dermatopathology exam Differential Diagnosis: BCC Check Margins: No Size of lesion: 1.3 x 0.7 cm Shave biopsy today, see procedure note. Patient will be notified of results. Follow up pending biopsy results. Next Visit: pending biopsy results, 3 month skin exam documented in this encounter [facility] 05-17-2024 Evaluation note Diagnosis Onset Date Resolution Acute bronchitis due to other specified organisms acute May 17, 024 8:16am Insomnia acute May 17, 2024 8:16am Small intestinal bacterial overgrowth (SIBO) acute May 17 8:16am [facility] Work Phone: 1([phone]) 202-430311-21-2024 Evaluation note* Diagnosis Onset Date Resolution Status Admit Date Acute bronchitis due to othe r specified organisms acute April 8:16am Insomnia acute May 17, 2024 8:16am Small intestinal bacterial overgrowth (SIBO) acute May 17, 2024 8:16am Essential hypertension acute [facility] 2024 1:46pm Chronic obstructive pulmonar y disease with (acute) lower respiratory infection noneactive July 102024 1:46pm Acute exacerbation of chroni c obstructive airways disease noneactive Edinson latasha2024 1:46pm ASHD (arteriosclerotic heart disease) acute July 19 11:23am Essential hypertension acute [facility] 2024 11:23am Gastroesophageal reflux disease with esophagitis without hemorrhage acute July 19, 2024 11:23am Iron deficiency anemia due t o chronic blood loss acute July 19, 2024 11:23am Irritable bowel syndrome wit h diarrhea acute July 19 11:23am Paroxysmal atrial fibrillation acute July 19, 2024 11:23am Primary insomnia acute July 19, 2024 11:23am [facility] Work Phone: 1([phone]) 294-181810-03-2024 History of Present illness Narrative* Keiko Naik, [facility] - 03/29/2024 2:43 PM EDT Glucose - SIBO CPT 07803 Hydrogen Breath Test Valentín Buckner 1940 March 29, 2024 Referring Physician: Dr. Sung Ochoa Indication: NSG TEST INDICATIONS: Diarrhea R19.7 Weight: 196 lbs Location: [facility] Duration of Test: 2 Hours Hydrogen Methane CO2 MEASURED CORRECTION FACTOR TESTERS NAME Baseline 8:45 am 4 4 4.1 1.34 Sharmin Beauchamp MA Test Solution Given: 100 mg of Glucose 10 oz liquid Sharmin Beauchamp MA #1 - 15 minutes 9:00 am 9 6 3.6 1.52 Sharmin Beauchamp MA #2 - 30 minutes 9:15 am 18 8 3.4 1.61 Sharmin Beauchamp MA #3 - 45 minutes 9:30 am 20 8 3.5 1.57 Sharmin Beauchamp MA #4 - 60 minutes 9:45 am 24 8 3.5 1.57 Sharmin Beauchamp MA #5 - 75 minutes 10:00 am 17 8 3.5 1.57 Sharmin Beauchamp MA #6 - 90 minutes 10:15 am 6 5 3.6 1.52 Sharmin Beauchamp MA #7 - 105 minutes 10:30 am 17 8 3.3 1.66 Sharmin Beauchamp MA #8 - 120 minutes 10:45 am 12 7 3.3 1.66 Sharmin Beauchamp MA Guidelines Baseline < 10 ppm Hydrogen (H2) > 20 ppm over baseline Methane (CH4) > 20 ppm over baseline Final Test Results: positive Physician Signature: Keiko Naik APRN.CNP [facility]* Diagnosis Onset Date Resolution Status Admit Date ASHD (arteriosclerotic heart disease) acute March 19, 2024 11:25am Essential hypertension acute Se ptember 2023 11:25am Gastroesophageal reflux dise ase with esophagitis without hemorrhage acute March 19, 2024 11:25am Iron deficiency anemia due t o chronic blood loss acute February 11:25am Irritable bowel syndrome wit h diarrhea acute March 19, 2024 11:25am Paroxysmal atrial fibrillation acute March 19, 2024 11:25am Primary insomnia acute Septembe r 2023 11:25am [facility] Work Phone: 1(752) 909-668608-20-2024 History of Present illness Narrative* Bashir Girard MD - 02/14/2024 1:15 PM EDT Images from the original note were not included. Skin Check Location: Patient requests a full body skin examination Dermatologic history: history of Melanoma, history of Actinic Keratosis, history of Squamous Cell Carcinoma Last visit: 3 months ago Melanoma History Location: right shoulder Date of Melanoma dx: 08/2017 Melanoma details: Malignant Melanoma Breslow's depth: 0.6 mm Mitotic rate: 0/mm squared Ulceration: not present Melanoma treatment: wide excision Established patient All pertinent medical history, medications, and allergies were reviewed. General Exam: alert , oriented to person, place, and time , normal affect, well appearing Unaccompanied Scalp, Examined , exam limited by hair Right leg Examined Head, Face Examined Left leg Examined Neck Examined Right foot Examined Chest Examined Left foot Examined Back Examined Buttocks Examined Abdomen Examined Digits,nails: Examined Right arm Examined Left arm Examined Lymphatics: Examined Hands Examined no cervical lymphadenopathy, no supraclavicular lymphadenopathy, no axillary lymphadenopathy 1. Drug-induced photosensitivity Scalp Erythema and pruritus on the scalp. Counseled on the occurrence of sun sensitivity due to amiodarone use. Patient advised to use sun protective clothing and sunscreen. Start hydrocortisone 2.5% cream as needed when flared, set aside when clear. Avoid eyes/periocular area. Notify office if flaring despite treatment. Hydrocortisone Acetate 1 % cream - Scalp Apply thin layer to affected areas, twice a day as needed for flares, 30 day supply 2. Seborrheic keratosis Stuck on verrucous, escobar-brown papules and plaques. Patient was counseled regarding these benign growths. Removal is normally not necessary, but they may be removed if they are symptomatic or for cosmetic reasons. 3. Lentigines Scattered escobar macules in sun-exposed areas. The patient was informed that lentigines are benign pigmented lesions that occur on sun-exposed andsun-damaged skin. No treatment is necessary. Recommended regular use of broad spectrum sunscreen SPF 30 or higher 4. Actinic keratosis (13) Left Antecubital Fossa, Left Buccal Cheek, Left Forearm - Posterior (6), Left Shoulder - Anterior, Left Superior [place], Left Orthodox, Right Forearm - Posterior (2) Erythematous scaly papules Patient was counseled regarding these sun-induced growths that can develop into squamous cell carcinoma if left untreated. Discussed treatment with cryotherapy. It was emphasized that any treated lesions that fail to resolve should be re- evaluated. Cryotherapy performed today; see procedure note Diagnosis: Actinic keratosis Indication: Precancerous Location: see skin exam Consent: Verbal consent was obtained and risks were discussed, including, but not limited to risks of scarring, darker or farm machine tender pigmentary changes, recurrence, incomplete removal and infection. Method: Liquid nitrogen was used to treat the lesion(s) with two 5-10 second freeze-thaw cycles. Eyes were shielded using cotton pad during procedure Number of lesions treated: 14 Post-procedure instructions: Instructions were given orally and in writing. The office will be contacted if the lesion fails to resolve despite treatment, or if a side effect develops such as abnormal crusting, scabbing, redness or tenderness Cryotherapy, skin lesion - Left Antecubital Fossa, Left Buccal Cheek, Left Forearm - Posterior (6),Left Shoulder - Anterior, Left Superior [place], Left Orthodox, Right Forearm - Posterior (2) Related Medications fluorouracil (Efudex) 5 % cream Apply to directed areas on the scalp twice a day x 14 days. Dispense 30 day supply but only use for14 days. fluorouracil (Efudex) 5 % cream Apply to directed areas on the scalp twice a day x 14 days. Dispense 30 day supply but only use for14 days. fluorouracil (Efudex) 5 % cream Apply to directed areas on the scalp twice a day x 14 days. Dispense 30 day supply but only use for14 days. 5. History of malignant melanoma of skin Right Shoulder No evidence of recurrence at melanoma scar. The patient was counseled that scars from excisional sites of melanoma should be monitored closely for recurrence. The patient was instructed to contact the office for any new, changing, or symptomatic moles. The patient was also instructed to contact the office for any new lesions that develop within or around the previous melanoma scar. Next Visit: 3 months documented in [place] encounter[place]enn[place] [id number] Evaluation note* Author [facility] Authored February 02, 2024 11: 45am 83-year-old man referred to the GI clinic for evaluation of diarrhea. + Diarrhea x 1 year Colonoscopy in 03/2023 was normal. However colonic biopsies were not done. Flexible sigmoidoscopy on 10/26/2023 showed hyperplastic polyps and internal hemorrhoids, random biopsies were negative for microscopic colitis. Duodenal biopsies in 03/2023 was negative for celiac. Labs including TSH, ESR, CRP, fecal calprotectin HIV ab, fecal elastase and stool infectious workup were unremarkable -Will arrange for hydrogen breath test to evaluate for SIBO. -Etiology could be overflow diarrhea, will get KUB to evaluate stool burden -If the rest of the workup is negative will consider Imodium or Bentyl [facility] Work Phone: [phone]) 806-877707-03-2024 History of Present illness Narrative* Brendon Baron, DO - 12/28/2023 10:30 AM EDT Subjective Valentín Buckner is a 83 y.o. male Chief Complaint Follow-up 83-year-old gentleman here for follow-up and had 1 emergency room visit for jaw/chest discomfort following a 3 mile bike ride. He was seen at [facility], details of the ER note, ECGs and labs are reviewed Since that time, he has had no further events, he is even ridden his bike 3 miles and walked 1 milewithout any events. He has a history of ASHD with three-vessel PCI's in [place], last catheterization performed by myself, from 06/16 is reviewed revealing patent obtuse marginal branch stent with second OM branch stenosis at the origin, bifurcating with the above-mentioned stent and we treated this conservatively. He has no history of stroke or bleeding disorder cancer peripheral vascular disease Has had mild paroxysmal atrial fibrillation, successfully treated with low-dose amiodarone, Eliquiswith no bleeding or thromboembolic events recurrence of APam bob Remains in sinus bradycardia today with first-degree AV block, low voltage and QT interval of 455 ms He remains on amiodarone 100 mg every other day, Eliquis 5 mg twice daily. Recommendations: Proceed with stress perfusion imaging, lipid panel, follow-up in 6 months. Review of Systems All other systems reviewed and are negative. Vitals: 12/28/23 1027 BP: 136/80 BP Location: Right arm Patient Position: Sitting Pulse: (!) 48 Weight: 88.5 kg (195 lb) Height: 1.753 m (5' 9 ) EKG done in office today Objective Physical Exam Constitutional: Appearance: Normal appearance. HENT: Nose: Nose normal. Neck: Vascular: No carotid bruit. Cardiovascular: Rate and Rhythm: Bradycardia present. Pulses: Normal pulses. Heart sounds: Normal heart sounds. Pulmonary: Effort: Pulmonary effort is normal. Abdominal: General: Bowel sounds are normal. Palpations: Abdomen is soft. Musculoskeletal: General: Normal range of motion. Cervical back: Normal range of motion. Right lower leg: No edema. Left lower leg: No edema. Skin: General: Skin is warm and dry. Neurological: General: No focal deficit present. Mental Status: He is alert. Psychiatric: Mood and Affect: Mood normal. Behavior: Behavior normal. Thought Content: Thought content normal. Judgment: Judgment normal. Allergies Clopidogrel Current Medications Current Outpatient Medications: amiodarone (Pacerone) 200 mg tablet, Take 0.5 tablets (100 mg) by mouth 3 times a week. Take one tablet by mouth every Tue, Tue, Tue, Disp: 40 tablet, Rfl: 1 amLODIPine (Norvasc) 2.5 mg tablet, TAKE 1 TABLET BY MOUTH EVERY DAY DIRECTED, Disp: 90 tablet, Rfl: 3 apixaban (Eliquis) 5 mg tablet, Take 1 tablet (5 mg) by mouth 2 times a day., Disp: , Rfl: aspirin 81 mg EC tablet, Take 1 tablet (81 mg) by mouth. Take one tablet by mouth every Tue, Tue, Tue, Disp: , Rfl: atorvastatin (Lipitor) 40 mg tablet, Take 1 tablet (40 mg) by mouth once daily at bedtime., Disp: 90 tablet, Rfl: 3 cholecalciferol (Vitamin D-3) 50 mcg (2,000 unit) capsule, Take 1 capsule (50 mcg) by mouth once daily., Disp: , Rfl: isosorbide mononitrate ER (Imdur) 30 mg 24 hr tablet, Take 1 tablet (30 mg) by mouth once daily., Disp: 90 tablet, Rfl: 3 loratadine 10 mg capsule, Take 1 tablet by mouth once daily., Disp: , Rfl: pantoprazole (ProtoNix) 40 mg EC tablet, Take 1 tablet (40 mg) by mouth once daily., Disp: , Rfl: zinc gluconate 50 mg tablet, Take 1 tablet (50 mg) by mouth once daily., Disp: , Rfl: Assessment/Plan 1. 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 Bradycardia 3. S/P PTCA (percutaneous transluminal coronary angioplasty) 4. H/O non-ST elevation myocardial infarction (NSTEMI) 5. Paroxysmal atrial fibrillation (Multi) 6. High risk medication use 7. Hypertension, benign 8. Mixed hyperlipidemia 9. BMI 28.0-28.9,adult 10. Former smoker Scribe Attestation By signing my name below, ICass LPN , Scribe attest that this documentation has been prepared under the direction and in the presence of Cassandra Baron DO. Provider Attestation - Scribe documentation All medical record entries made by the Scribe were at my direction and personally dictated by me. Ihave reviewed the chart and agree that the record accurately reflects my personal performance of the history, physical exam, discussion and plan. documented in this [facility] Work Phone: 1(373) 108-726907-03-2024 Instructions* Patient Instructions* Cass Rogers LPN - 12/28/2023 10:30 AM EDT Please bring all medicines, vitamins, and herbal supplements with you when you come to the office. Prescriptions will not be filled unless you are compliant with your follow up appointments or have a follow up appointment scheduled as per instruction of your physician. Refills should be requested at the time of your visit. Amiodarone follow up per routine BMI was above normal measurement. Current weight: 88.5 kg (195 lb) Weight change since last visit (-) denotes wt loss -8 lbs Weight loss needed to achieve BMI 25: 26.1 Lbs Weight loss needed to achieve BMI 30: -7.7 Lbs Provided instructions on dietary changes. * Attachments The following attachments cannot be sent through Care Everywhere. * Heart Healthy Diet (Mosotho) [facility] Work Phone: 1([phone]) 675-158604-22-2024 Hospital Discharge instructions Follow Up Care 10/17/2023 15:55:07 With:MIHAELA MORALES, Bethel Burgess, URL Address: [facility] [address], [place] [address] [phone] When: Unknown [facility] 04-22-2024 Evaluation note* [facility]ored October 17, 2023 2:5 5pm 83-year-old [...] colonic biopsies to assess for microscopic colitis [facility] Work Phone: [phone]) 192-853302-08-2024 Evaluation note* Encounter Date Diagnosis Assessment Notes [...] are maintaining regular scheduled appts with their appointment clerk.TT Jul, Primary hypertension (ICD-10 - I10) This [...] TV, exercise and eating prior to HS [facility] Other 01-29-2024 History of Present illness Narrative* Brendon Baron, DO - 07/25/2023 1:00 PM EST Subjective Valentín Buckner is a 82 y.o. male Chief Complaint Annual Exam 82-year-old gentleman returns for follow-up and is doing well he has no anginal complaints, heart failure or recurrent hospitalizations. He status post non-ST elevation [place] May 2021, with a history of ASHD and prior three-vessel PCIin [place]. 1 of those events was for an inferior [place] with revascularization of the RCA. Patient is [...] Scribe Attestation By signing my name below, I, Janie Prather LPN , Elizabeth attest that this documentation has been prepared under the direction and in the presence of Cassandra Baron DO. Assessment/Plan 1. Bradycardia 2. H/O non-ST elevation myocardial infarction (NSTEMI) 3. Paroxysmal atrial fibrillation (CMS/HCC) 4. 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 Tylenol as needed Apr, Strain of right rotator cuff capsule, initial encounter (ICD-10 - S46.011A) Ice, heat and ROM exercises. Tylenol, Lidocaine and Voltaren Gel. Call if pain increases. [facility] Other [id number] Evaluation note* Encounter Date Diagnosis Assessment Notes [...] are maintaining regular scheduled appts with their appointment clerk. Apr, Primary hypertension (ICD-10 - I10) This [...] minutes, 3-5 times weekly. Apr, Other Normal [facility] Other 10-26-2023 [facility]* [facility] Authored February 02, 2024 11: 43am 83-year-old [...] colonic biopsies to assess for microscopic colitis [facility] Work Phone: [phone]) 429-190809-29-2023 Evaluation note* Encounter Date Diagnosis Assessment Notes Treatment Notes Treatment Clinical Notes Feb, Primary hypertension (ICD-10 - I10) [facility] Other 09-05-2023 Evaluation note* Encounter Date Diagnosis [...] procedure explained to patient; patient verbalizes understanding. [facility] Other 08-08-2023 Evaluation note* Encounter Date Diagnosis [...] are maintaining regular scheduled appts with their appointment clerk. No obvious bleeding complications Jan, Primary hypertension [...] labs - GI referral later this month [facility] Other 05-09-2023 Evaluation note* Encounter Date Diagnosis [...] are maintaining regular scheduled appts with their appointment clerk. October, Primary hypertension (ICD-10 - I10) This [...] Recently decreased to 100mg qod. F/U Cardiology [facility] Other 05-05-2023 Evaluation note* Encounter Date Diagnosis Assessment Notes Treatment Notes Treatment Clinical Notes October, Paroxysmal atrial fibrillation (ICD-10 - I48.0) [facility] Other 05-02-2023 Evaluation note* Encounter Date Diagnosis [...] are maintaining regular scheduled appts with their appointment clerk. 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 [facility] Other 04-07-2023 Evaluation note* Encounter Date Diagnosis [...] are maintaining regular scheduled appts with their appointment clerk. Sep, Iron deficiency anem ia due to [...] Diet and exercise with continued statin therapy. 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 Valsalva multiple times No improvement, may require referral to ENT Aug, Fecal urgency (ICD-10 - R15.2) Diet instructions. Restart Metamucil [facility] Other 02-22-2023 Evaluation note* Encounter Date Diagnosis Assessment Notes Treatment Notes Treatment Clinical Notes Jul, Paroxysmal atrial fibrillation (ICD-10 - I48.0) This patient is in NSR. This patient is anticoagulated to prevent thromboembolic events. They are maintaining regular scheduled appts with their appointment clerk. Jul, ASHD (arteriosclerot ic heart disease) (ICD-10 [...] (ICD-10 - K58.0) Diet instructions, add Metamucl [facility] Other 11-17-2022 NoteCONSULTATION CONSULTATION DATE: 05/13/2022 This [...] patient is in agreement to this. [id number] NoteCONSULTATION CONSULTATION DATE: 03/25/2022 HISTORY OF PRESENT [...] followed up in the clinic post procedure.[id number] NoteCONSULTATION CONSULTATION DATE: 02/09/2022 CHIEF COMPLAINT: Low [...] would like to proceed. CC: Irving Canela D.O.[facility]07-26-2022 NoteCONSULTATION CONSULTATION DATE: 01/19/2022 CHIEF COMPLAINT: Chronic [...] CC: Brendon Ceja M.D. Irving Canela D.O.[facility] [id number] NotePROCEDURE: XR HIP RT 2 3V W [...] authenticated by: LYNDA BYNUM Date: 2021-12-30 11:33[facility]edo[facility] + Plan note No data available for this section [facility] evaluation noteNo assessment information available [facility] Work Phone: Evaluation noteNo InformationNort [employer] Other Evaluation note* Diagnosis Onset Date Resolution Status Coronary artery disease acut e Dizziness acute Dyspnea acute Essential hypertension acute History of heart artery stent acute Hyperlipidemia acute Pre-syncope acute [facility] Work Phone: Evaluation note* Diagnosis Onset Date Resolution Status Change in bowel function acu te [facility] Work Phone: Evaluation note* Diagnosis Bradycardia Other specified cardiac dysrhythmias H/O non-ST elevation myocardial infarction (NSTEMI) Paroxysmal atrial fibrillation (CMS/HCC) Atrial fibrillation S/P PTCA (percutaneous transluminal coronary angioplasty) Postsurgical percutaneous transluminal coronary angioplasty status documented in this encounter [facility] Work Phone: Evaluation note* Diagnosis Onset Date Resolution Status ASHD (arteriosclerotic heart disease) acute Essential hypertension acute Gastroesophageal reflux dise ase with esophagitis without hemorrhage acute Iron deficiency anemia due to chronic blood loss acute Paroxysmal atrial fibrillation acute [facility] Work Phone: Evaluation note* Diagnosis Onset [...] chronic blood loss acute Loose stools acute [facility] Work Phone: Evaluation note* Diagnosis Diarrhea, unspecified type- Primary [facility] Diagnosis Seborrheic keratosis- Primary Lentigines History of SCC (squamous cell carcinoma) of skin Personal history of other malignant neoplasm of skin History of malignant melanoma of skin Personal history of malignant melanoma of skin Actinic keratosis Neoplasm of unspecified behavior of bone, soft tissue, and skin [facility] Diagnosis 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 Bradycardia Other specified cardiac dysrhythmias S/P PTCA (percutaneous transluminal coronary angioplasty) Postsurgical percutaneous transluminal coronary angioplasty status H/O non-ST elevation myocardial infarction (NSTEMI) Paroxysmal atrial fibrillation (Multi) Atrial fibrillation High risk medication use Hypertension, benign Essential hypertension, benign Mixed hyperlipidemia BMI 28.0-28.9,adult Former smoker Personal history of tobacco use, presenting hazards to health Chest pain, unspecified type documented in this encounter [facility] Work Phone: Evaluation note* Diagnosis Chest pain, unspecified type documented in this encounter [facility] Work Phone: Evaluation note* Diagnosis Drug-induced photosensitivity- Primary Acute dermatitis due to solar radiation Seborrheic keratosis Lentigines Actinic keratosis History of malignant melanoma of skin Personal history of malignant melanoma of skin documented in this encounter [facility] HealthcareEvaluation [facility]* Diagnosis Basal cell carcinoma of skin of scalp and neck- Primary documented in this encounter [facility] HealthcareEvaluation note* Diagnosis Mohs defect of neck documented in this encounter [facility] HealthcareEvaluation note* Diagnosis 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 Bradycardia Other specified cardiac dysrhythmias H/O non-ST elevation myocardial infarction (NSTEMI) S/P PTCA (percutaneous transluminal coronary angioplasty) Postsurgical percutaneous transluminal coronary angioplasty status High risk medication use Paroxysmal atrial fibrillation (Multi) Atrial fibrillation Mixed hyperlipidemia Former smoker Personal history of tobacco use, presenting hazards to health BMI 29.0-29.9,adult documented in this encounter [facility] Work Phone: History and physical note Author Karol Sage [facility] October 28, 2022 11:21pm Note Date/Time October 28, 2022 11:01p m [facility] [address] [place] [address] Hospitalist H&P Signed Patient: Valentín Buckner MR#: [id number] : 1940 Acct:[id number] Age/Sex: 82 / M Adm Date: 3 Loc: Room: [address] [place] [address] Type: ADM INOo Attending Dr: Karol Sage MD Copies to: DO Trena Vinson DO, RES Karol Sage MD~ HPI DATE OF EXAMINATION: 10/28/22 [...] % (Auto) 24.4 % (.) 10/28/22 21:10 [place] % (Auto) 11.8 % (.) 10/28/22 21:10 Eos % (Auto) 0.9 % (.) 10/28/22 21:10 Baso % (Auto) 0.4 % (.) 10/28/22 21:10 Nucleat RBC Rel Count 0.0 /100 WBC (0-0.5) 10/28/22 21:10 Neut # (Auto) 5.6 x10E3/uL (1.8-7.7) 10/28/22 21:10 Lymph # (Auto) 2.2 x10E3/uL (1.00-4.8) 10/28/22 21:10 [place] # (Auto) 1.0 x10E3/uL (0.0-0.8) H 10/28/22 [...] <Electronically signed by DO NANDINI Pena> 10/28/22 2317 [facility] Work Phone: History general Narrative - [...] CATHERIZATION, HEART, LEFT 2020 Surgical History COLONOSCOPY 2011 Surgical History DISECTOMY, LUMBAR Surgical History PTCA/STENT Surgical History PCI/STENT LAD 2015 Hospitalization History SEE SURGICAL HX milabent Other History general Narrative - Reported* Type Description [...] CATHERIZATION, HEART, LEFT 2020 Surgical History COLONOSCOPY 2011, Surgical History DISECTOMY, LUMBAR Surgical History PTCA/STENT Surgical History PCI/STENT LAD 2015 Surgical History Colonoscopy 03/2023 Surgical History EGD w/ bx 03/2023 Hospitalization History SEE SURGICAL HX milabent Other History of Present illness Narrative* The [...] medication regimen. He denies medication side effects. [facility] 250 DO Work Phone: History of Present [...] medication regimen. He denies medication side effects. [facility] 600 DO Work Phone: History of Present illness Narrative* Patient returns in follow-up of problems as noted. This first time I am seeing him. In the past he was under the care of Dr. Kay Aden for coronary disease with intervention. Recently he is having problems with paroxysmal atrial fibrillation and bradycardia. Ultimately he was switchedto amiodarone with tenriism of sinus rhythm, today, and a better [...] in several months and make additional recommendations. [facility] 250 DO Work Phone: History of Present illness Narrative* Patient returns in follow-up of problems as noted. This first time I am seeing him. In the past he was under the care of Dr. Kay Aden for coronary disease with intervention. Recently he is having problems with paroxysmal atrial fibrillation and bradycardia. Ultimately he was switchedto amiodarone with tenriism of sinus rhythm, today, and a better [...] in several months and make additional recommendations. [employer] DO Work Phone: History of Present illness Narrative* The patient states he has been generally doing well since the last visit. Comorbid Illnesses: hypertension and hyperlipidemia. * Symptoms: denies chest pain at rest, denies exertional chest pain, denies dyspnea, stable fatigue, denies exercise intolerance, denies palpitations, denies edema, resolved dizziness and denies orthostatic dizziness. * Associated symptoms: no syncope. * Disease Monitoring: -Merged With [facility] [employer] DO Work Phone: History of Present illness [...] medication regimen. He denies medication side effects. [facility] [employer] DO Work Phone: history of Present illness Narrative* The patient states [...] medication regimen. He denies medication side effects. [facility]erged [facility] 250 DO Work Phone: Hospital Discharge instructions Additional [...] if you have any problems. -Office number [phone] Work Phone: Hospital Discharge instructionsAmbulatory Orders* Breath test for SIBO Time Frame: 02/02/24, Location: None Selected [facility] Work Phone: Progress note No data available for this section [facility] Gian reason for referral (narrative)* Reason Referral for Fe defi ciency anemia and GERD Diagnosis 1 Gastroesophageal ref lux disease with esophagitis without hemorrhage (K21.00) Referral Organization [facility] Referring Provider First Name Irving Referring Provider Last Name Rola Referring Provider Specialty Internal Me dicine Referred Organization [facility] Referred Provider Michael Bahena Referred Address [address],[facility] [address] ,[place], [place],[address] Referred Provider Specialty Gastroentero logy Referral Priority Routine [employer] Other Summary Purpose Family History Unknown Family [...] February 1:38pm Hospital Course Note MR#: [id number] 2[facility] Pt. Name: Valentín Buckner Admitted: 05/09/2018 Discharged: 05/10/2018 Date of : 1940 Physician: Anna Hoyt MD DISCHARGE SUMMARYPR[facility]AREPART[facility]ITAL[facility] C[facility] PHYSICIAN: Dr. Irving Canela.PRINCIPAL PROBLEM:1. Chest pain, rule out acute coronary syndrome.2. History of CAD status post stents.3. Hypertension, well controlled.4. Unspecified dyslipidemia.CONSULTANTS: Cardiology.HOSPITAL COURSE: This is a 77-year-old male, who was seen at [facility] for concern for unstable angina. The patient [...] typical chest pain symptoms aswell. Workup at [facility] revealed an EKG that was normal andnormal troponin. However, given the patient's cardiac history, they feltthat i (more content not included)... Chief Complaint * VALENTÍN BUCKNER is being seen for follow-up of a hospitalization for. * Patient is a 80-year-old gentleman returns from recent small non-ST elevation WI associated with small branch disease of the [...] Ceja MD for review.Amiodarone Order sent to [facility] for testing due in October VALENTÍN SITA is being seen for a 6 week [...] has had a previous small non-ST elevation WI in May 2021 associated with a small [...] in 6 months Amiodarone Order sent to [facility] for testing due in FebruaryAmiodarone Order sent to [facility] for testing due in July 19Amiodarone Order sent to [facility] for testing due in September* Hospital f/u: 'doing ok' * VALENTÍN BUCKNER is being seen for follow-up of a hospitalization for dizziness. * Patient presents to the office ambulatory steady gait, is accompanied by his . Last evaluated in clinic Dr. Baron June 2022. At that time dose of amiodarone reduced 100 mg daily. * October 2022 presented to [facility] due to dizziness. Seen in [...] day of admit he was at the [email or web address] course, when he raised up he felt [...] regarding bradycardia and he completed a 14-day [employer]. Results reviewed including no evidence of high-grade [...] Medicare annual wellness visit, subsequent Chief Complaint loose stools/fecal i ncontinence 4 month follow up Reason for Visit ASHD (arteriosclerot ic heart disease) Essential hypertension Gastroesophageal reflux disease with esophagitis without hemorrhage Iron deficiency anemia due to chronic blood loss Irritable bowel syndrome with diarrhea Paroxysmal atrial fibrillation Chief Complaint Admit Date 4 month follow up March 19, 2024 11:25am cough May 17, 2024 8:16am Reason for Visit Admit Date ASHD (arteriosclerotic heart disease) Se ptember 2023 11:25am Essential hypertension March 19 024 11:25am Gastroesophageal reflux dise ase with esophagitis without hemorrhage March 19, 2024 11:25am Iron deficiency anemia due to chronic bl ood loss March 19, 2024 11:25am Irritable bowel syndrome with diarrhea S eptember 2023 11:25am Paroxysmal atrial fibrillation March 19, 2024 11:25am Primary insomnia March 19, 2024 11:25am Chief Complaint Admit Date cough May 17, 2024 8:16am cough w yellow/green mucus, phlegm Janua ry 2024 1:46pm Reason for Visit Admit Date Acute bronchitis due to other specified organisms May 17, 2024 8:16am Insomnia May 17, 2024 8:16am Small intestinal bacterial overgrowth (S IBO) May 17, 2024 8:16am Chief Complaint Admit Date cough May 17, 2024 8:16am cough w yellow/green mucus, phlegm Janua ry 2024 1:46pm 4 month f/u July 19, 2024 1 1:23am Reason for Visit Admit Date Acute bronchitis due to other specified organisms May 17, 2024 8:16am Insomnia May 17, 2024 8:16am Small intestinal bacterial overgrowth (S IBO) May 17, 2024 8:16am Essential hypertension July 10 1:46pm Chronic obstructive pulmonar y disease with (acute) lower respiratory infection July 10, 2024 1:46pm Acute exacerbation of chronic obstructiv e airways disease July 10, 2024 1:46pm ASHD (arteriosclerotic heart disease) Pablo guerrero 2024 11:23am Essential hypertension July 19 11:23am Gastroesophageal reflux dise ase with esophagitis without hemorrhage July 19, 2024 11:23am Iron deficiency anemia due to chronic bl ood loss July 19, 2024 11:23am Irritable bowel syndrome with diarrhea J anuary 2024 11:23am Paroxysmal atrial fibrillation June 282024 11:23am Primary insomnia July 19, 2024 1 1:23am Reason for Referral Specialty Diagnoses / Procedures Referred By Contac t Referred To Contact Cardiology Diagnoses Chest pain, unspecified type Procedures Nuclear Stress Test CHG MYOCARDIAL SPECT MULTIPLE STUDIES Brendon Baron, DO [address] [place] [address] Referral ID Status Reason Start Date Expiration Date Visits Requested Visits Authorized [id number] Pending Review Perform Procedure 12/28/2023 12/27/2024 5 5 Specialty Diagnoses / Procedures Referred By Contac t Referred To Contact Diagnoses Paroxysmal atrial fibrillation (Multi) Procedures ECG 12 Lead Brendon Baron, DO [address] [place] [address] Referral ID Status Reason Start Date Expiration Date V isits Requested Visits Authorized [id number] Authorized 12/28/2023 12/27/2024 1 1 Specialty Diagnoses / Procedures Referred By Contac t Referred To Contact Cardiology Diagnoses 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 Procedures Follow Up In Cardiology Brendon Baron, DO [address] [place] [address] Brendon Baron, DO [address] [place] [address] Referral ID Status Reason Start Date Expiration Date V isits Requested Visits Authorized [id number] Authorized 12/28/2023 12/27/2024 1 1 Specialty Diagnoses / Procedures Referred By Contac t Referred To Contact Diagnoses Bradycardia Procedures ECG 12 Lead Brendon Baron, DO [address] [place] [address] Referral ID Status Reason Start Date Expiration Date V isits Requested Visits Authorized [id number] Authorized 07/25/2023 07/24/2024 1 1 Specialty Diagnoses / Procedures Referred By Sanam t Referred To Contact Cardiology Diagnoses Bradycardia H/O non-ST elevation myocardial infarction (NSTEMI) S/P PTCA (percutaneous transluminal coronary angioplasty) Procedures Follow Up In Cardiology Brendon Baron, DO [address] [place] [address] Brendon Baron, DO [address] [place] [address] Referral ID Status Reason Start Date Expiration Date V isits Requested Visits Authorized [id number] Authorized 07/25/2023 07/24/2024 1 1 Additional Source Comments (unrecognized sect ion and content) No Status Records FoundNo Status Records FoundNo Status Records FoundNo Status Records FoundNo Status Records FoundNo Status Records FoundNo Status Records FoundNo Status Records FoundNo Status Records Found INFORMATION SOURCE (unrecogn ized section and content) DATE CREATED AUTHOR 06/18/2018 [facility] DATE CREATED AUTHOR AUTHOR'S ORGANIZ ATION 10/24/2022 [facility] DATE CREATED AUTHOR AUTHOR'S ORGANIZ ATION 03/31/2023 [facility] DATE CREATED AUTHOR AUTHOR'S ORGANIZ ATION 04/01/2023 [employer] DATE CREATED AUTHOR AUTHOR'S ORGANIZ ATION 11/23/2023 [facility] DATE CREATED AUTHOR AUTHOR'S ORGANIZ ATION 01/09/2024 [facility] DATE CREATED AUTHOR AUTHOR'S ORGANIZ ATION 01/26/2024 [facility] DATE CREATED AUTHOR AUTHOR'S ORGANIZ ATION 02/15/2024 [facility] DATE CREATED AUTHOR AUTHOR'S ORGANIZ ATION 07/24/2024 [facility] EPIC Reason for Visit (unrecogniz ed section and content) Reason Comments Annual Exam Reason Comments Breath Hydrogen Test SIBO Hydrogen Breat h Test Results. Reason Comments Skin Check Reason Comments Follow-up [facility] 12/15 Specialty Diagnoses / Procedures Referred By Contac t Referred To Contact Cardiology Diagnoses Chest pain, unspecified type Procedures Nuclear Stress Test CHG MYOCARDIAL SPECT MULTIPLE STUDIES Brendon Baron, [address] [place] [address] [address], [address] [address] Referral ID Status Reason Start Date Expiration Date Visits Requested Visits Authorized [id number] Pending Review Perform Procedure 12/28/2023 12/27/2024 5 5 Reason Comments Mohs Micrographic Surgery Reason Comments Mohs Reconstruction New patient mohs nec k Specialty Diagnoses / Procedures Referred By Contac t Referred To Contact Otolaryngology Diagnoses Basal cell carcinoma of skin of scalp and neck Procedures SC OFFICE/OUTPATIENT NEW HIGH MDM 60 MINUTES Pedro Wagner MD [address] [facility] [address] [place] [address] Phone: tel: fax: Irving Fonseca, DO [address] [facility] [place] [address] Phone: tel: fax: Referral ID Status Reason Start Date Expiration Date V isits Requested Visits Authorized [id number] Closed Specialty Services Required 07/19/2024 01/15/2025 1 1 Reason Comments Annual Exam Specialty Diagnoses / Procedures Referred By Contac t Referred To Contact Cardiology Diagnoses Bradycardia H/O non-ST elevation myocardial infarction (NSTEMI) S/P PTCA (percutaneous transluminal coronary angioplasty) Procedures Follow Up In Cardiology Brendon Baron, [address] [place] [address] [address], [address] [address] Phone: tel: fax: Brendon Baron, [address] [place] [address] 2, [address] [address] Phone: tel: fax: Referral ID Status Reason Start Date Expiration Date V isits Requested Visits Authorized [id number] Authorized 07/25/2023 07/24/2024 1 1 Care Teams (unrecognized sec tion and content) Team Status: Active Member Role Status Dates Irving Canela DO Primary Care Provider Active Team Status: Inactive Member Role Status Dates NON STAFF Primary Care Provider Active Start: May 17, 2024 End: May 17, 2024 Irving Canela DO Attending Provider Active Sta rt: May 17, 2024 End: May 17, 2024 Team Status: Inactive Member Role Status Dates Irving Canela DO Primary Care Provide r, Attending Provider Active Start: July 10, 2024 End: July 10, 2024 Team Status: Inactive Member Role Status Dates Irving Canela DO Primary Care Provide r, Attending Provider Active Start: July 19, 2024 End: July 19, 2024 Team Status: Active Member Role Status [...] Team Status: Inactive Member Role Status Dates rIving Canela DO Primary Care Provider Active Start: [...] Irving Canela DO Primary Care Provider Active Alfred Baron DO Attending Provider Active Team Status: Active Member Role Status Dates Irving Canela DO Primary Care Provider Active Pedro Corbett Jr, MD Emergency Provider Active Karol Sage MD Admit Provider, Attending Provide r Active Team Status: Inactive Member Role Status Dates Irving Canela DO Primary Care Provider Active Markell Garza MD Attending Provider Active Operations Representative Relationship Specialty Start Date End Date Irving Canela DO PCP - General 06/27/99 Team Status: Inactive Member Role Status Cindy Canela DO Primary Care Provide r, Attending Provider Active Start: September 23, 2023 End: September 23, 2023 Team Status: Active Member Role Status Cindy Canela DO Primary Care Provide r, Attending Provider Active Start: 2023 Team Status: Inactive Member Role Status Cindy Canela DO Primary [...] Member Role Status Dates Irving Canela DO Attending Provider Active Sta rt: March 19, 2024 End: March 19, 2024 NON STAFF Primary Care Provider Active Start: March 19, 2024 End: March 19, 2024 Operations Representative Relationship Specialty Start Date End Date Irving Canela DO [address] [place], [place] [id number] PCP - General Internal Medicine 03/29/24 Team Status: Active Member Role Status Dates NON STAFF Primary Care Provider Active Start: April 11, 2024 Miriam Juarez MD Attending Provider Active St art: April 11, 2024 Operations Representative Relationship Specialty Start Date End Date Irving Canela DO PCP - General 06/27/99 Operations Representative Relationship Specialty Start Date End Date Irving Canela DO [address] [place] [address] PCP - General Internal Medicine 12/28/23 Operations Representative Relationship Specialty Start Date End Date Irving Canela DO [address] [place] [address] PCP - General Internal Medicine 12/28/23 Operations Representative Relationship Specialty Start Date End Date Irving Canela DO [address] [place] [address] PCP - General Internal Medicine 12/28/23 Operations Representative Relationship Specialty Start Date End Date Irving Canela DO [address] [place] [address] PCP - General Internal Medicine 12/28/23 Operations Representative Relationship Specialty Start Date End Date Irving Canela MD [address] [place] [address] PCP - General Internal Medicine 07/23/24 Operations Representative Relationship Specialty Start Date End Date Irving Canela MD [address] [place] [address] PCP - General Internal Medicine 07/23/24 Operations Representative Relationship Specialty Start Date End Date Irving Canela DO [address] [place] [address] PCP - General Internal Medicine 12/28/23 Goals (unrecognized section and content) Goals may [...] may be documented in an alternate section No data available for this sectionGoals may be documented in an alternate sectionGoals may be documented in an alternate sectionGoals may be documented in an alternate sectionGoals may be documented in an alternate section Source Comments (unrecognize d section and content) In the event this informatio n is protected by the Federal Confidentiality of Alcohol and Drug Abuse Patient Records regulations: The Federal rules restrict any use of the information to criminally investigate or prosecute any alcohol or drug abuse patient.[facility] FOR RECORDS PERTAINING TO PATIENTS WHO ARE [...] BE BASED ON THE PRIMARY CLINICAL RECORDS. [employer] provides no warranty or guarantee of the accuracy or completeness of information in this document.
[2024-07-26 11:09] LABS: Anion Gap 9.9; Aspartate Amino Transferase 15 U/L (15-37); BUN Creatinine Ratio 17.8; Calcium 8.9 mg/dL (8.5-10.1); Carbon Dioxide 29.4 mmol/L (21.0-32.0); Chloride 105 mmol/L (98-107); Estimated GFR (African America >60 (>=60 mL/min/1.73m^2); Estimated GFR (Non-African Ame >60 (>=60 mL/min/1.73m^2); Glucose 100 mg/dL (74-106); Potassium 4.3 mmol/L (3.5-5.1); Sodium 140 mmol/L (136-145); Thyroid Stimulating Hormone 1.223 uIU/mL (0.358-3.740)
== END 2024-07-26 09:51 | disposition home or self-care (01) ==
LOC: LAB 09:52
PROVIDERS: PCP Internal Medicine; Visit Provider Internal Medicine Cardiovascular Disease
DX: I48.0 Paroxysmal atrial fibrillation (principal); Z79.899 Other long term (current) drug therapy
CPT/HCPCS: 36415; 80048; 84443; 84450

== ENCOUNTER 2024-07-27 13:40 | Emergency (ER) | payer MEDICARE, OTHER, SELFPAY ==
[2024-07-27] VITALS (24 sets, daily range): BP systolic 128–173; BP diastolic 65–100; PULSE 48–66; TEMP 36.6; O2SAT 92–95; BMI 29.9
--- NOTE | 2024-07-27 14:07 | PC.NURSE ---
pt's comes to nurse station and informs this nurse that pt was supposed to stop taking Trazodone at night and start taking Ambien. Pt was taking both and thinks the last Trazodone pt took was Tues. Pt 's is concerned this may be the cause of the new sudden onset of illness.
--- NOTE | 2024-07-27 14:22 | XR_ITS ---
The [address] [address] Patient Name: ADELE BUCKNER MRN: [id number] date: 1940 Sex: M Assigned Patient Location: ER Current Patient Location: ER Accession/Order Number: [id number] Exam Date: 07/27/2024 14:42 Report Date: 07/27/2024 15:03 At the request of: YOANA MONCADA Procedure: XR chest 2V EXAMINATION: XR chest 2V HISTORY: sob COMPARISON: 12/16/2023 TECHNIQUE: PA and lateral FINDINGS: LUNGS: No significant pulmonary parenchymal abnormalities. Stable right upper lobe nodule, size and density suggests granulomas VASCULATURE: No increased pulmonary vasculature. PLEURA: No pneumothorax, effusion, or pleural thickening. CARDIAC: No cardiomegaly or cardiac silhouette abnormality. MEDIASTINUM: No visible mass or adenopathy. BONES: No fracture or visible bone lesion. OTHER: Negative. XR/XR chest 2V IMPRESSION: No acute cardiopulmonary process Electronically authenticated by: KIKA CHO Date: 07/27/2024 15:03
--- NOTE | 2024-07-27 14:22 | ECG_ITS ---
The [facility] Test Date: 2024-07-27 Pat Name: ADELE BUCKNER Department: Room: - Gender: Male Director Of Transportation: : 1940 Requested By: Daniela Canela Order Number: [id number] Reading MD: DANIELA CANELA Measurements Intervals [place] Rate: 61 P: 30 ME: 248 QRS: 100 QRSD: 84 T: 30 QT: 416 QTc: 420 Interpretive Statements 1100 Sinus rhythm 2231 First degree AV block 2420 RSR (QR) in lead V1/V2, consistent with right ventricular conduction delay 3623 Possible inferior myocardial infarction, probably old 7300 Indeterminate axis 9150 abnormal ECG Electronically Signed On 07-27-2024 18:16:32 EST by DANIELA CANELA
[2024-07-27 14:35] LABS: Basophils Percent Auto 0.3 % (0.2-2.0); Eosinophils Absolute Auto 0.1 10^3/uL (0.0-0.7); Hematocrit 50.8 % (42.0-54.0); Hemoglobin 17.3 g/dL (14.0-18.0); Immature Granulocytes Abs Auto 0.02 10^3/uL (0.00-0.03); Immature Granulocytes Pct Auto 0.2 % (0.0-0.5); Lymphocytes Absolute Auto 2.2 10^3/uL (1.2-3.8); Lymphocytes Percent Auto 19.2 % (20.5-60.0); Mean Corpuscular HGB Conc 34.1 g/dL (29.9-35.2); Mean Corpuscular Hemoglobin 31.6 pg (25.9-34.0); Mean Corpuscular Volume 92.9 fL (80.0-94.0); Mean Platelet Volume 9.9 fL (9.5-13.5); Monocytes Absolute Auto 1.3 10^3/uL (0.3-0.8); Monocytes Percent Auto 11.2 % (1.7-12.0); Neutrophils Absolute Auto 7.9 10^3/uL (1.4-6.5); Neutrophils Percent Auto 68.1 % (43.0-75.0); Platelet Count 201 10^3/uL (150-450); Red Blood Count 5.47 10^6/uL (4.70-6.10); Red Cell Distribution Width 13.4 % (11.0-15.0); White Blood Count 11.6 10^3/uL (4.0-11.0)
[2024-07-27 14:58] LABS: Anion Gap 11.4
--- NOTE | 2024-07-27 15:00 | ED.GENADUL1 ---
HPI HPI - General Adult General Chief complaint: Shortness of Breath/Dyspnea Stated complaint: SOB Time Seen by Provider: 07/27/24 14:01 Source: patient Mode of arrival: walk-in Limitations: no limitations History of Present Illness HPI narrative: Patient is a 83-year-old male who is presenting to the ER today complaining of 2 days of intermittent lightheaded, dizziness, intermittent shortness of breath. Patient just saw his associate civil engineer Dr. Baron on Tuesday. Patient has a history of 3 stents. Patient is on Eliquis. Dr. Baron gave patient a clean bill of [employer] on Tuesday. Patient also just had a surgical procedure that has been done recently to the right side of his face. Patient states that he has had skin cancer to the right side of his face. 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 Patient has stitches to the right anterior neck from another surgical procedure/fixing his surgical wounds to the right anterior aspect of his neck; this surgical procedure was done earlier this week as well. Patient has no headache or neck pain. No chest pain. He currently has no shortness of breath now. Patient states he is very active at home. Patient has no abdominal pain nausea vomiting. Patient's came to the desk, patient was taking trazodone and Ambien at nighttime. Patient has stopped taking trazodone. Patient's was wondering if he could be going through some withdrawal without taking trazodone now. Patient states that when he does sleep, he will go to sleep and then patient will sleep better once he does fall asleep. Patient states he is admittedly anxious. No other acute complaints at this time. All systems are negative except as noted/marked. All systems reviewed and otherwise negative. Nurses note and vital signs reviewed and patient is not hypoxic. General: The patient appears well and in no apparent distress. Patient is resting comfortably on cart. Patient is not toxic, lethargic, or listless Skin: Warm, dry, no pallor noted. There is no rash noted. No petechiae, purpura. Head: Normocephalic, atraumatic Eye: Normal conjunctiva, no drainage, EOMI. PERRL Ears, Nose, Mouth, and Throat: oral mucosa is moist. Nares patent. Mouth without vesicles. Cardiovascular: Regular Rate and Rhythm, no murmur, gallop, rub Respiratory: Patient is in no distress, no accessory muscle use, lungs are clear to auscultation, no wheezing, rales or rhonchi Back: non-tender, no CVA tenderness bilaterally to percussion. No CT LS midline pain GI: no tenderness to palpation, no masses appreciated. No rebound, guarding, or rigidity noted. No distention Musculoskeletal: Patient has full range of motion of all of the extremities, no motor, sensory, or focal neurological deficits Neurological: A&O x4, normal speech Psychiatric: Cooperative Related Data Home Medications ?Medication ?Instructions ?Recorded ?Confirmed amiodarone 200 mg tablet mg 12/16/23 amlodipine 2.5 mg tablet mg 12/16/23 atorvastatin 40 mg tablet mg 12/16/23 isosorbide mononitrate 30 mg mg PO 12/16/23 tablet,extended release 24 hr loratadine 10 mg tablet mg 12/16/23 pantoprazole 40 mg tablet,delayed mg PO 12/16/23 release trazodone 50 mg tablet mg 12/16/23 Allergies Allergy/AdvReac Type Severity Reaction Status Date / Time clopidogrel (From Plavix) Allergy Mild Verified 12/16/23 20:17 Opioid HPI Opioid Management Most Recent Opioid Data: No Data to Display PFSH PFSH Social History Little interest or pleasure in doing things: not at all Feeling down, depressed, or hopeless: not at all Exam Constitutional Vital Signs, click to edit/add: Last Vital Signs Temp 97.9 F 07/27/24 13:43 Pulse 50 L 07/27/24 16:00 Resp 14 07/27/24 16:00 BP 140/79 07/27/24 16:16 Pulse Ox 95 07/27/24 16:00 O2 Del Method Room Air 07/27/24 14:03 Course Vital Signs Vital signs: Vital Signs Temperature 97.9 F 07/27/24 13:43 Pulse Rate 66 07/27/24 13:43 Respiratory Rate 18 07/27/24 13:43 Blood Pressure 171/84 H 07/27/24 13:43 Pulse Oximetry 95 07/27/24 13:43 Oxygen Delivery Method Room Air 07/27/24 13:43 Temperature 97.9 F 07/27/24 13:43 Pulse Rate 50 L 07/27/24 16:00 Respiratory Rate 14 07/27/24 16:00 Blood Pressure 140/79 07/27/24 16:16 Pulse Oximetry 95 07/27/24 16:00 Oxygen Delivery Method Room Air 07/27/24 14:03 Medical Decision Making MDM Narrative Medical decision making narrative: Patient felt better after IV fluids. Patient and were educated on trazodone use and stopping trazodone. Patient is going to continue taking Ambien. Patient cardiac workup shows no significant findings. Patient will follow-up with Dr. Baron and PCP as recommended. Patient does have admitted underlying anxiety, and he feels better that testing was negative. The surgical wound to the patient's right anterior neck is clean, dry, intact. No hematoma, no ecchymosis, no active bleeding, sutures are intact. Surgical wound looks well with some firm 3 x 2 cm tissue palpated underneath that does not cause any pain, not pulsatile. No dehiscence. No drainage from the wound. Patient will follow-up, feels better at discharge. Patient admits that peace of mind that testing was negative eases his mind as well. Lab Data Labs: Lab Results 07/27/24 Range/Units 13:58 WBC 11.6 H (4.0-11.0) 10^3/uL RBC 5.47 (4.70-6.10) 10^6/uL Hgb 17.3 (14.0-18.0) g/dL Hct 50.8 (42.0-54.0) % MCV 92.9 (80.0-94.0) fL MCH 31.6 (25.9-34.0) pg MCHC 34.1 (29.9-35.2) g/dL RDW 13.4 (11.0-15.0) % Plt Count 201 (150-450) 10^3/uL MPV 9.9 (9.5-13.5) fL Neut % (Auto) 68.1 (43.0-75.0) % Lymph % (Auto) 19.2 L (20.5-60.0) % Jess[place] % (Auto) 11.2 (1.7-12.0) % Eos % (Auto) 1.0 (0.9-7.0) % Baso % (Auto) 0.3 (0.2-2.0) % Neut # (Auto) 7.9 H (1.4-6.5) 10^3/uL Lymph # (Auto) 2.2 (1.2-3.8) 10^3/uL Jess[place] # (Auto) 1.3 H (0.3-0.8) 10^3/uL Eos # (Auto) 0.1 (0.0-0.7) 10^3/uL Baso # (Auto) 0.0 (0.0-0.1) 10^3/uL Abs Immat Gran (auto) 0.02 (0.00-0.03) 10^3/uL Imm/Tot Granulo (auto) 0.2 (0.0-0.5) % Sodium 139 (136-145) mmol/L Potassium 4.6 (3.5-5.1) mmol/L Chloride 104 (98-107) mmol/L Carbon Dioxide 28.2 (21.0-32.0) mmol/L Anion Gap 11.4 BUN 19.0 H (7.0-18.0) mg/dL Creatinine 1.29 (0.70-1.30) mg/dL Est GFR ( Amer) >60 (>=60 mL/min/1.73m^2) Est GFR (Non-Af Amer) 53 L (>=60 mL/min/1.73m^2) BUN/Creatinine Ratio 14.7 Glucose 107 H (74-106) mg/dL Calcium 8.9 (8.5-10.1) mg/dL Total Bilirubin 0.5 (0.2-1.0) mg/dL AST 20 (15-37) U/L ALT 24 (16-63) U/L Alkaline Phosphatase 77 (46-116) U/L Troponin I High Sens 8.6 (4.0-76.1) pg/mL NT-Pro-B Natriuret Pep 144.0 (<=1800.0) pg/mL Total Protein 6.7 (6.4-8.2) g/dL Albumin 3.5 (3.4-5.0) g/dL Globulin 3.2 g/dL Albumin/Globulin Ratio 1.1 ECG Data Attestation: I personally reviewed and interpreted this ECG as follows: (Interpretation. Normal sinus rhythm at 61 beats a minute. Normal axis deviation. No acute ST elevation, no acute ectopy. QTc of 420. NC interval of 248, first-degree AV block.) Discharge Plan Discharge Chief Complaint: Shortness of Breath/Dyspnea Clinical Impression: Dyspnea, Lightheadedness Patient Disposition: Home, Self-Care Condition: Fair Mode of Transportation: Private Vehicle Prescriptions / Home Meds: No Action atorvastatin 40 mg tablet trazodone 50 mg tablet amiodarone 200 mg tablet isosorbide mononitrate 30 mg tablet extended release 24 hr PO amlodipine 2.5 mg tablet pantoprazole 40 mg tablet,delayed release (DR/EC) PO loratadine 10 mg tablet Print Language: Togolese Instructions: Dyspnea (ED), Lightheadedness (ED) Additional Instructions: Increase fluids at home. Follow-up with PCP or associate civil engineer. A copy of your x-ray report was given to you Referrals: Irving Cooley DO [Primary Care Provider] - 1 week Discharge Date/Time: 07/27/24 16:33
[2024-07-27 15:05] LABS: Alanine Aminotransferase 24 U/L (16-63); Albumin Globulin Ratio 1.1; Albumin Level 3.5 g/dL (3.4-5.0); Alkaline Phosphatase 77 U/L (46-116); Aspartate Amino Transferase 20 U/L (15-37); BUN Creatinine Ratio 14.7; Bilirubin Total 0.5 mg/dL (0.2-1.0); Calcium 8.9 mg/dL (8.5-10.1); Carbon Dioxide 28.2 mmol/L (21.0-32.0); Chloride 104 mmol/L (98-107); Estimated GFR (African America >60 (>=60 mL/min/1.73m^2); Estimated GFR (Non-African Ame 53 (>=60 mL/min/1.73m^2); Globulin 3.2 g/dL; Glucose 107 mg/dL (74-106); Potassium 4.6 mmol/L (3.5-5.1); Sodium 139 mmol/L (136-145); Total Protein 6.7 g/dL (6.4-8.2); Troponin I High Sensitivity 8.6 pg/mL (4.0-76.1)
[2024-07-27] MEDS: 0.9 % SODIUM CHLORIDE 500 ML IV (15:42)
== END 2024-07-27 16:33 | disposition home or self-care (01) ==
PROVIDERS: Emergency Provider Emergency Medicine; PCP Internal Medicine
DX: R06.00 Dyspnea, unspecified (principal); R42 Dizziness and giddiness; R06.02 Shortness of breath; Z95.5 Presence of coronary angioplasty implant and graft; Z79.01 Long term (current) use of anticoagulants; Z85.828 Personal history of other malignant neoplasm of skin; Z98.890 Other specified postprocedural states
CPT/HCPCS: 36415; 71046; 80053; 83880; 84484; 85025; 93005; 99285

== ENCOUNTER 2024-09-24 10:22 | Outpatient (RCR) | payer MEDICARE, OTHER, SELFPAY | END 2024-10-13 14:19 | disposition home or self-care (01) | LOC: PT 10:22 | PROVIDERS: PCP Internal Medicine; Visit Provider Internal Medicine | DX: M79.604 Pain in right leg (principal); R26.89 Other abnormalities of gait and mobility; R26.9 Unspecified abnormalities of gait and mobility | CPT/HCPCS: 97035; 97110; 97140; 97161; 97530 ==

== ENCOUNTER 2024-09-25 10:12 | Outpatient (OUT) | payer MEDICARE, OTHER, SELFPAY ==
--- OUTSIDE RECORDS SUMMARY | 2024-09-25 10:30 | XMS_ITS | CCD ---
Author Organization [facility] Care Team Providers Care Paper Cone Maker Name Role Phone AHMED, ANNA Unavailable Unavailable AHMED, ANNA Unavailable Unavailable BALL, IRVING Unavailable Unavailable AHMED, ANNA Unavailable Unavailable PHYSICIAN, DEFAULT Unavailable Unavailable PHYSICIAN, DEFAULT Unavailable Unavailable ROLA, IRVING Unavailable Unavailable Rola, Irving E Unavailable Unavailable Unavailable Rola, DO Villatoro Primary Care Provider [phone] DO Alfred Baron Attending Provider [phone] Rola, DO Villatoro Primary Care Provider [phone] DO Alfred Baron Attending Provider [phone] Irving Canela Unavailable Rola, DO Villatoro Primary [...] ., DR BEAU Ferrer Consulting Unavailable GLADISJARRED Consulting Unavailable SIM ., DR BEAU Ferrer [...] Unavailable BALL, DR VILLATORO Primary Care Unavailable [place], DR KIKA Carranza Consulting Unavailable EUBANKS, DR [...] Emergency Provider MD Karol Sage Admit Provider [phone] MD Karol Sage Attending Provider [phone] Markell Hines Unavailable DO Irving Canela Primary Care Provider [...] Care Hayden Aden, Ms. Florence Vergara Referring Unavai lable Rola, Dr. Irving Dumont Primary Care Hayden Aden, MsPam Vergara Attending Hayden Aden, MsPam Vergara Referring Unavai lable Rola, Dr. Irving Dumont Primary Care Hayden Aden, MsPam Vergara Attending Hayden Aden, Ms. Florence Vergara Referring Unavai lable Rola, Dr. Irving Dumont Primary Care Hayden Aden, MsPam Florencecatalina Vergara Attending MD Markell Rosales Attending Provider Irving Canela DO Primary Care Provider DO Irving Canela Primary Care Provider DO Alfred Baron Attending Provider MD Colleen Ochoa Attending Provider MD Miriam Juarez Attending Provider BRENDON BARON Referring Unavailable IRVING CANELA Primary Care Unavailable BRENDON BARON Referring Unavailable IRVING CANELA Primary Care Unavailable IRVING CANELA Primary Care Physician Bethel CHAIREZ Attending Unavailable Irving Canela DO Primary Care Provider Unavailable Primary Care Provider UnavailIrving Medellin DO Primary Care Provider Irving Canela DO Primary Care Provider Irving Canela MD Primary Care Provider Pedro Wagner MD Unavailable Irving Fonseca DO Unavailable PEDRO WAGNER Attending Unavailable MURLUCIANK, IRVING Simon Attending Unavailable PEDRO WAGNER Referring Unavailable MURCEK, IRVING Simon Attending Unavailable MURCEK, IRVING Simon Attending Unavailable PEDRO WAGNER Referring Unavailable PETITTI, BASHIR A Attending Unavailable MARIAN, IRVING Simon Attending Unavailable PEDRO WAGNER Referring Unavailable PETITTI, BASHIR A Attending Unavailable PETITTI, BASHIR A Attending Unavailable PETITTI, BASHIR A Attending Unavailable BRENDON BARON Attending Unavailable IRVING CANELA Primary Care Unavailable BRENDON BARON Attending Unavailable BRENDON BARON Referring Unavailable IRVING CANELA Primary Care Unavailable Irving Canela Primary Care Unavailable Asaad, Imad Admitting Unavailable Asaad, Imad Attending Unavailable Ann, Miriam Admitting Unavailable Ann, Miriam Attending Unavailable Alfred Baron Attending Unavailable Alfred Baron Admitting Unavailable Irving Canela Primary Care Unavailable Irving Canela DO Primary Care Provider Alfred Baron DO Attending Provider Allergies Allergy Classification Reported Allergen(s) Allergy Type Date of Onset Reaction(s) Facility (3 sources) clopidogrel; Translations: [Plavix] Drug Allergy 6 [facility] Rep[facility] (1 source) Ticagrelor Drug Allergy 6 [facility] (20 sources) clopidogrel; Translations: [Plavix] Drug Allergy 7 Rash, Eruption of skin (disorder), Hives, Other [facility] (9 sources) clopidogrel; Translations: [CLOPIDOGREL] Drug Allergy 1 [facility] (1 source) prasugrel Drug Allergy [facility] Repository (20 sources) prednisoLONE Drug Allergy 3 [facility] Medications Current Medications Medication Drug Class(es) Dates Sig (Normalized) Sig (Original) ALPRAZolam 0.25 mg oral tablet (20 sources) Benzodiazepine Start: 03-20-2019 take 4 tablets by mouth three times daily alprazolam 0.25 mg Tab mg tab(s), Oral, TID, Refills(s) 0 Start Date: 03/20/19 Status: Ordered take 1 tablet by mouth at bedtim e ALPRAZolam (Xanax) 0.25 MG tablet TAKE 1 TALBET BY MOUTH AT BEDTIME Active amiodarone hydrochloride 100 mg oral tablet (20 sources) Antiarrhythmic Start: 04-21-2023 Amiodarone 100 mg tablet Active 50 MG PO [id number] 21, 2023 8:09am Start: 04-21-2023 Amiodarone Act andrew 50 MG PO [id number] 21, 2023 8:09am Start: 10-29-2022 End: 10-29-2022 Amiodarone 200 mg tablet Discontinued 0 .ROUTE .COMPLEX October 29, 2022 12:00am October 29, 2022 2:17pm 100 mg orally Start: 10-29-2022 End: 04-21-2023 Amiodarone 100 mg Tablet Discontinued 100 MG PO [email or web address] 30 October 29, 2022 12:00am April 21, 2023 8:09am Start: 10-29-2022 End: [...] Active Start: 01-05-2022 amiodarone (Pa cerone) 200 MG tablet TAKE 1/2 TABLET BY MOUTH TUESDAY THROUGH TUESDAY ONLY 10/15/2022 Active Start: 01-05-2022 amiodarone (Pa cerone) 200 mg tablet Take 1 tablet (200 mg) by mouth. Take one tablet by mouth every Tue, Tue, Tue 0 01/05/2022 Active Start: 10-07-2021 take 1 [...] 1 tablet by mouth once daily Amlodipine 2.5 mg tablet Active 2.5 MG PO Daily September 13, [...] 90 Refills: 3 Ordered: 02-Sep-2021 Jai Aden W[employer]T [employer]-PART[employer] HOST/HOSTESSFlorence Start : 02-Sep-2021 Active Start: 03-20-2019 End: [...] PO Twice daily October 29, 2022 12:00am Apixaban (ELIQUI S PO) Take by mouth Active aspirin 81 mg delayed release oral tablet (20 sources) Platelet Aggregation Inhibitor, Nonsteroidal Anti-inflammatory Drug Start: 01-05-2022 aspirin 81 mg EC tablet Take 1 tablet (81 mg) by mouth. Take one tablet by mouth every Tue, Tue, Tue01/05/2022 Active Start: 06-12-2021 End: 09-13-2023 take 1 tablet by mouth three times weekly Aspirin 81 mg Tablet Discontinued 81 MG PO 3 Times a week June 12, 2021 1:00am September 13, 2023 11:53am Start: 03-20-2019 take 81 mg by mouth [...] at bedtime October 29, 2022 12:21am Start: 10-29-2022 take 40 mg by mouth once daily at bedtime Atorvastatin Active 40 MG PO Daily at bedtime October 29, 2022 12:21am Start: 01-05-2022 End: 07-24-2024 take 1 tablet by mouth at bedtime atorvastatin (Lipitor) 40 MG tablet Take 40 mg by mouth at bedtime. 12/31/2022 Active Start: 06-13-2021 End: 10-29-2022 take 1 tablet by mouth once daily Atorvastatin 80 mg tablet Discontinued 80 MG PO Daily June 13, 2021 1:00am October 29, 2022 12:22am Start: 07-06-2019 End: 06-13-2021 take 1 tablet by mouth once daily Atorvastatin 20 mg Tablet Discontinued 20 MG PO Daily June 12, 2021 1:00am June 13, 2021 12:21pm take 1 tablet by tavo th in the morning atorvastatin (Lipitor) 10 MG tablet Take 1 tablet by mouth in the morning. Active 120 actuat budesonide 0.08 mg/actuat / formoterol fumarate 0.0045 mg/actuat metered dose inhaler (3 sources) Corticosteroid, beta2-Adrenergic Agonist Start: 07-10-2024 take 1 puff(s) by inhalation every twelve hours Budesonide-Formoterol 80-4.5 mcg/actuation HFA aerosol inhaler Active 2 PUFF INHALATION Every 12 hours 10.2 July 10, 2024 1:00am cephalexin 500 mg oral capsule (14 sources) Cephalosporin Antibacterial Start: 07-19-2024 take 1 capsule by mouth twice daily cephalexin (Keflex) 500 MG capsule Indications: Basal cell carcinoma of skin of scalp and neck Take 1 capsule, by mouth, bid, 10 days 20 capsule 07/19/2024 Active codeine phosphate 2 mg/ml / guaiFENesin 20 mg/ml oral solution (20 sources) Opioid Agonist guaiFENesin-code ine (Robitussin-AC) 100-10 MG/5ML syrup Active hydrocortisone acetate 10 mg/ml topical cream (19 sources) Corticosteroid Start: 02-14-2024 Hydrocortisone Acetate 1 % cream Indications: Drug-induced photosensitivity Apply thin layer to affected areas, twice a day as needed for flares, 30 day supply 28.4 g 11 02/14/2024 Active Inhalational Spacing Device (Aerochamber Mini) spacer (3 sources) Start: 07-10-2024 Inhalational Spacing Device (Aerochamber Mini) spacer Active 0 .ROUTE .MEDSUPPLY July 10, 2024 1:00am Use with inhaler Start: 07-10-2024 Inhalational S pacing Device (Aerochamber Mini) spacer Active 0 .ROUTE .MEDSUPPLY July 10, 2024 12:00am Use with inhaler 24 hr isosorbide mononitrate 30 mg extended release oral tablet (20 sources) Nitrate Vasodilator Start: 03-26-2024 take 1 tablet by mouth once daily Isosorbide Mononitrate 30 mg tablet extended release 24 hr Active 0 .ROUTE .COMPLEX 90 March 26, 2024 12:37pm TAKE 1 TABLET BY MOUTH EVERY DAY Start: 06-12-2021 End: 07-24-2024 take 1 tablet by mouth once daily, then take 1 tablet by mouth every twenty-four hours Isosorbide Mononitrate 30 mg Tablet Extended Release 24 Hr Discontinued 30 MG PO Daily June 12, 2021 1:00am March 26, 2024 12:37pm take 1 tablet by tavo th every [...] .COMPLEX as needed for chest pain September 13, 2023 12:00am 0.4 mg sublingually PRN; do not exceed 3 doses per episode Start: 11-29-2022 Nitroglycerin 0.4 MG Sublingual Tablet Sublingual DISSOLVE 1 TABLET UNDER THE TONGUE NEEDED FOR CHEST PAIN. Quantity: 25 Refills: 3 Ordered: 29-Nov-2022 Jai Aden APRN-PARTY HOST/HOSTESSFlorence Start : 29-Nov-2022 Active nitroglycerin (N itrostat) [...] (DR/EC) Active 40 MG PO Daily April 21, 2023 12:00am polysaccharide iron complex 150 mg oral capsule (20 sources) Start: 09-09-2022 take 1 capsule by mouth once daily iron polysaccharides (Nu-Iron,Niferex) 150 MG capsule TAKE 1 CAPSULE BY MOUTH EVERY DAY FOR 30 DAYS 09/09/2022 Active prasugrel 10 mg oral tablet (20 sources) P2Y12 Platelet Inhibitor prasugrel (Effient) 10 MG tablet as directed Orally Active rifAXIMin 550 mg oral tablet (10 sources) Rifamycin Antibacterial Start: 05-01-2024 End: 05-07-2024 take 1 tablet by mouth three times daily Rifaximin 550 mg tablet Active 550 MG PO Three times daily May 07, 2024 10:37am traZODone hydrochloride 50 mg oral tablet (20 sources) Serotonin Reuptake Inhibitor Start: 11-24-2023 take 1 tablet by mouth at bedtime traZODone (Desyrel) 50 MG tablet Take 50 mg by mouth at bedtime 11/24/2023 Active Start: 08-26-2023 End: 10-26-2023 take [...] Active zolpidem tartrate 5 mg oral tablet (17 sources) gamma-Aminobutyric Acid-ergic Agonist Start: 05-17-2024 End: 09-19-2024 take 1 tablet by mouth once daily at bedtime as needed Zolpidem 5 mg tablet Active 5 MG PO Daily at bedtime as needed for insomnia September 19, 2024 9:34am Completed/Discontinued Medications Medication Drug Class(es) Dates Sig (Normalized) Sig (Original) amitriptyline hydrochloride 10 mg oral tablet (20 sources) Tricyclic Antidepressant Start: 09-13-2023 End: 10-17-2023 take 1 tablet by mouth once daily at bedtime Amitriptyline 10 mg tablet Discontinued 10 MG PO Daily at bedtime September 13, 2023 12:00am October 17, 2023 2:29pm cholecalciferol 0.05 mg oral capsule (20 sources) Vitamin D Start: 06-12-2021 End: 09-13-2023 take 1 capsule by mouth once daily Cholecalciferol (Vitamin D3) (Vitamin D3) 50 mcg (2,000 unit) Capsule Discontinued 50 MCG PO Daily June 12, 2021 1:00am September 13, 2023 11:53am clopidogrel 75 mg oral tablet (10 sources) P2Y12 Platelet Inhibitor End: 07-22-2024 take 1 tablet by mouth once daily clopidogrel (Plavix) 75 MG tablet Take 1 tablet every day by oral route for 90 days. 07/22/2024 Discontinued doxycycline hyclate 100 mg oral capsule (7 sources) Tetracycline-class Drug Start: 05-17-2024 End: 09-19-2024 take 1 capsule by mouth twice daily Doxycycline Hyclate 100 mg capsule Discontinued 100 MG PO Twice daily 07 01July 10, 2024 3:38pm September 19, 2024 8:56am fluorouracil 50 mg/ml topical cream (20 sources) [...] End: 12-15-2023 take 1 tablet by mouth once daily as needed Loratadine 10 mg Tablet Discontinued 10 MG PO Daily as needed for Allergy Symptoms June 12, 2021 1:00am December 15, 2023 8:40am take 1 capsule by mo uth once daily Loratadine 10 MG capsule Take 1 capsule every day by oral route. Active 24 hr metoprolol succinate 50 mg extended release oral tablet (20 sources) beta-Adrenergic Mulugeta Start: 06-13-2021 End: 10-29-2022 take 1 tablet by mouth once daily Metoprolol Succinate 50 mg tablet extended release 24 hr Discontinued 50 MG PO Daily June 13, 2021 1:00am October 29, 2022 12:18am oseltamivir 75 mg oral capsule (10 sources) Neuraminidase Inhibitor End: 07-22-2024 Tamiflu 75 MG capsule 07/22/2024 Discontinued sulfamethoxazole 800 mg / trimethoprim 160 mg oral tablet (9 sources) Dihydrofolate Reductase Inhibitor Antibacterial, Sulfonamide Antimicrobial Start: 11-15-2023 End: 02-02-2024 take 1 tablet by mouth twice daily Sulfamethoxazole- Trimethoprim 800-160 mg tablet Discontinued 1 TAB PO Twice daily 15 04November 15, 2023 12:00am February 02, 2024 11:26am Tc-99m tetrofosmin (Myoview) injection 10 millicurie (1 [...] 13, 2021 1:00am October 29, 2022 12:18am Zinc (18 sources) Start: 06-12-2021 End: 04-21-2023 take 1 capsule by mouth once daily Zinc 50 mg Capsule Discontinued 50 MG PO Daily June 12, 2021 1:00am April 21, 2023 8:09am Start: 06-12-2021 End: 04-21-2023 take 1 capsule [...] Date Documented Da te Episodic/Chronic Abdominal pain (20 sources) Right upper quadrant pain; Translations: [Right [...] [Atrial fibrillation] Onset: 3 Resolved: 5 Chronic Chronic obstructive pulmonary disease and bronchiectasis (9 sources) Chronic bronchitis; Translations: [Unspecified chronic bronchitis] 07-10-2024 Chronic Conditions associated with dizziness or vertigo (8 sources) Dizziness; Translations: [Dizziness and giddiness] 10-28-2022 Episodic Coronary atherosclerosis and other heart disease (20 sources) Unstable angina; Translations: [Old myocardial infarction] Onset: 5 Resolved: 5 06-13-2021 Chronic Deficiency and other anemia (14 sources) Iron deficiency anemia due to blood loss; Translations: [Iron deficiency anemia secondary to blood loss (chronic)] 09-14-2023 Chronic Deficiency and other anemia (15 sources) Iron deficiency anemia secondary to blood [...] [Gastroesophageal reflux disease with esophagitis without hemorrhage] Chronic Essential hypertension (20 sources) Essential (primary) hypertension; Translations: [Benign hypertension] Onset: 8 Resolved: 5 06-12-2021 Chronic Gastrointestinal hemorrhage (12 sources) Rectal hemorrhage; Translations: [Hemorrhage of anus and rectum] Episodic Headache; including migraine (19 sources) Episodic tension-type headache; Translations: [Episodic tension-type headache, not intractable] 09-13-2023 Chronic Immunizations and screening for infectious disease (4 sources) Vaccination given; Translations: [Encounter for immunization] Episodic Inflammatory conditions of male genital organs (10 sources) Orchitis; Translations: [Orchitis] 11-15-2023 Episodic Influenza (4 sources) Influenza due to Influenza A virus with upper respiratory signs; Translations: [Influenza due to other identified influenza virus with other respiratory manifestations] Episodic Melanomas of skin (20 sources) Malignant melanoma; Translations: [Malignant melanoma of skin, unspecified] Onset: 5 Resolved: 5 09-13-2023 Chronic Melanomas of skin (7 sources) Personal history of malignant melanoma of skin; Translations: [History of malignant melanoma of the skin] Onset: 8 05-21-2024 Episodic Miscellaneous mental health disorders (20 sources) Primary insomnia; Translations: [Primary insomnia] Chronic Neoplasms of unspecified nature or uncertain behavior (2 sources) Neoplastic disease; Translations: [Neoplasm of unspecified behavior of bone, soft tissue, and skin] 05-21-2024 Episodic Osteoarthritis (20 sources) Arthritis of right hip; Translations: [Unilateral primary osteoarthritis, right hip] Onset: 5 Resolved: 5 Chronic Other acquired deformities (6 sources) Surgical wound finding; Translations: [Acquired deformity of neck] 07-23-2024 Episodic Other aftercare (1 source) meterman (current) use of aspirin; Translations: [SENIOR CARE (CURRENT) USE OF ASPIRIN] Onset: 8 Episodic Other aftercare (20 sources) Drug therapy finding; Translations: [Long-term (current) use of anticoagulants] Episodic Other and unspecified benign neoplasm (17 sources) Benign neoplasm of colon; Translations: [Benign neoplasm of descending colon] Episodic Other and unspecified benign neoplasm (1 source) Benign neoplasm of descending colon Episodic Other and unspecified benign neoplasm (4 sources) Benign neoplasm of descending colon; Translations: [Benign neoplasm of descending colon] Episodic Other and unspecified benign neoplasm (12 sources) Adenomatous polyp of colon ; Translations: [...] with diarrhea] 09-13-2023 Chronic Other gastrointestinal disorders (17 sources) Irritable bowel syndrome with diarrhea; Translations: [...] and abdomen] 04-21-2023 Episodic Other gastrointestinal disorders (1 source) Other specified symptoms and signs involving the digestive system and abdomen; Translations: [Other symptoms involving digestive system] 04-21-2023 Episodic Other gastrointestinal disorders (10 sources) Loose stool; Translations: [Other fecal abnormalities] 10-17-2023 Episodic Other gastrointestinal disorders (10 sources) Disorder of gastrointestinal tract; Translations: [Other specified diseases of the digestive system] 10-17-2023 Episodic Other gastrointestinal disorders (10 sources) Urgent desire for stool; Translations: [Fecal urgency] 10-17-2023 Episodic Other gastrointestinal disorders (3 sources) Other specified diseases of the digestive system; Translations: [Other specified disorders of intestine] 10-17-2023 Episodic Other gastrointestinal disorders (3 sources) Other fecal abnormalities; Translations: [Abnormal feces] 10-17-2023 Episodic Other gastrointestinal disorders (6 sources) Small bowel bacterial overgrowth syndrome; Translations: [...] abnormalities] 10-28-2022 Episodic Other lower respiratory disease (12 sources) Nodule of lung; Translations: [Solitary pulmonary nodule] 09-13-2023 Episodic Comment on above: PFT: FEV1/FVC 70, FE V1 115%, TLV 113%, DLCO 144% - 08/2024 Other nervous system disorders (11 sources) Hereditary disorder of nervous system; Translations: [Hereditary and idiopathic neuropathy, unspecified] Chronic Other nervous system disorders (1 source) Other chronic pain; Translations: [OTHER CHRONIC PAIN] Onset: 2 Chronic Other nervous system disorders (12 sources) Neuropathy; Translations: [Hereditary and idiopathic neuropathy, [...] disorders (2 sources) Body mass index (BMI) 29.0-29.9, adult; Translations: [Body mass index (BMI) 29.0-29.9, adult] Onset: 5 Episodic Other screening for suspected conditions (not mental disorders or infectious disease) (5 sources) Blood chemistry abnormal; Translations: [Other specified abnormal findings of blood chemistry] Resolved: 2 09-06-2024 Episodic Comment on above: PSA: <0.1 - 08/2024 Other skin disorders (6 sources) Seborrheic keratosis; Translations: [Other seborrheic keratosis] 05-21-2024 Episodic Other skin disorders (6 sources) Lentiginosis; Translations: [Other melanin hyperpigmentation] 05-21-2024 Episodic Other skin disorders (6 sources) Actinic keratosis; Translations: [Actinic keratosis] 05-21-2024 [...] [Localized edema] 09-13-2023 Episodic Residual codes; unclassified (4 sources) Insomnia; Translations: [Insomnia, unspecified] 05-17-2024 Episodic Residual codes; unclassified (2 sources) Insomnia, unspecified; Translations: [Insomnia, unspecified] 05-17-2024 Episodic Retinal detachments; defects; vascular occlusion; and retinopathy (4 sources) Retinal disorder; 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] Onset: 5 Chronic Spondylosis; intervertebral disc disorders; other back [...] 04-13-2021 02-14-2024 Episodic Blindness and vision defects (12 sources) Bilateral regular astigmatism; Translations: [Regular astigmatism, bilateral] Onset: 07-22-2024 Resolved: 07-22-2024 07-22-2024 Episodic Cancer of prostate (20 sources) Personal history of malignant neoplasm of prostate; Translations: [History of malignant neoplasm of prostate] Onset: 05-09-2018 Resolved: 07-22-2024 07-06-2019 Episodic Cardiac dysrhythmias (20 sources) Bradycardia; Translations: [Other specified cardiac dysrhythmias] Onset: 06-24-2023 Resolved: 07-22-2024 Episodic Coronary atherosclerosis and other heart disease (20 sources) Presence of coronary angioplasty implant and graft; Translations: [Patient post percutaneous transluminal coronary angioplasty] Onset: 05-09-2018 Resolved: 07-22-2024 10-28-2022 Episodic E Codes: Adverse effects of medical drugs (4 sources) Adverse effect of antithrombotic drugs, initial encounter; Translations: [Adverse effect of antithrombotic drugs, initial encounter] Onset: 06-14-2016 Episodic Esophageal disorders (2 sources) Esophageal disorders Genitourinary symptoms and ill-defined conditions (13 sources) Urge incontinence of urine; Translations: [Urge incontinence] Onset: 07-22-2024 Resolved: 07-22-2024 07-04-2020 Chronic Genitourinary symptoms and ill-defined conditions (17 sources) Dysuria; Translations: [Dysuria] Onset: 07-14-2018 Resolved: 07-22-2024 07-06-2019 Episodic Hypertension with complications and secondary hypertension (4 sources) Malignant hypertensive chronic kidney disease; Translations: [Hypertensive chronic kidney disease with stage 1 through stage 4 chronic kidney disease, or unspecified chronic kidney disease] Resolved: 06-02-2022 Chronic Mycoses (12 sources) Dermatophytosis; Translations: [Dermatophytosis, unspecified] Onset: 07-22-2024 Resolved: 07-22-2024 07-22-2024 Episodic Nonspecific chest pain (20 sources) Chest pain, unspecified; Translations: [Chest pain] Onset: 04-21-2015 Resolved: 07-22-2024 Episodic Occlusion or stenosis of precerebral arteries (16 sources) Carotid artery occlusion; Translations: [Occlusion and stenosis of unspecified carotid artery] Onset: 06-08-2017 Resolved: 07-22-2024 07-22-2024 Chronic Other aftercare (20 sources) Taking high risk medication; Translations: [Other bed bug exterminator (current) drug therapy] Onset: 12-28-2023 Resolved: 07-22-2024 12-28-2023 Episodic Other aftercare (12 sources) Patient encounter status; Translations: [Encounter for therapeutic drug level monitoring] Onset: 07-22-2024 Resolved: 07-22-2024 07-22-2024 Episodic Other aftercare (12 sources) Long-term current use of anticoagulant; Translations: [senior care (current) use of anticoagulants] Onset: 07-22-2024 Resolved: 07-22-2024 07-22-2024 Episodic Other aftercare (2 sources) Other fdc (current) drug therapy; Translations: [Other bed bug exterminator (current) drug therapy] Onset: 12-28-2023 Episodic Other connective tissue disease (1 source) Myalgia, unspecified site; Translations: [MYALGIA UNSPECIFIED SITE] Onset: 01-23-2022 Episodic Other connective tissue disease (12 sources) Enthesopathy; Translations: [Enthesopathy, unspecified] Onset: 07-22-2024 [...] (gaseous)] Onset: 04-13-2016 Episodic Other gastrointestinal disorders (13 sources) Diarrhea; Translations: [Diarrhea, unspecified] Onset: 07-22-2024 Resolved: 07-22-2024 03-29-2024 Episodic Other gastrointestinal disorders (1 source) Diarrhea, unspecified; Translations: [Diarrhea, unspecified] Onset: 10-26-2023 Episodic Other inflammatory condition of skin (4 [...] Onset: 06-14-2016 Episodic Other male genital disorders (13 sources) Erectile dysfunction following radical prostatectomy; Translations: [Erectile dysfunction following radical prostatectomy] Onset: 07-22-2024 Resolved: 07-22-2024 03-20-2019 Chronic Other nervous system disorders (12 sources) Difficulty walking; Translations: [Difficulty in walking, not elsewhere classified] Onset: 07-22-2024 Resolved: 07-22-2024 07-22-2024 Chronic Other nervous system disorders (20 sources) Paresthesia; Translations: [Paresthesia of skin] Onset: 07-22-2024 Resolved: 07-22-2024 09-13-2023 Episodic Other non-traumatic joint disorders (4 sources) Pain in right hip; Translations: [PAIN IN RIGHT HIP] Onset: 12-29-2021 Episodic Other non-traumatic joint disorders (12 sources) Arthralgia of the ankle and/or foot; Translations: [Pain in unspecified ankle and joints of unspecified foot] Onset: 07-22-2024 Resolved: 07-22-2024 07-22-2024 Episodic Other nutritional; endocrine; and metabolic disorders (20 sources) Overweight in adulthood with body mass index of 25 or more but less than 30; Translations: [Overweight] Onset: 12-28-2023 Resolved: 07-22-2024 12-28-2023 Episodic Other nutritional; endocrine; and metabolic disorders (2 sources) Body mass index (BMI) 28.0-28.9, adult; Translations: [Body mass index (BMI) 28.0-28.9, adult] Onset: 12-28-2023 Episodic Residual codes; unclassified (13 sources) H/O: anticoagulant therapy; Translations: [Personal history of other drug therapy] Onset: 07-22-2024 Resolved: 07-22-2024 03-20-2019 Episodic Screening and history of mental health and substance abuse codes (20 sources) Personal history of nicotine dependence; Translations: [Ex-smoker] Onset: 05-09-2018 Resolved: 07-22-2024 03-20-2019 Episodic Comment on above: quit 1995ish; Unclassified (1 source) CONTACT W/AND (SUSP) EXPOS COVID-19; Translations: [CONTACT W/AND (SUSP) EXPOS COVID-19] Onset: 06-15-2022 Unclassified (1 source) LOW BACK PAIN, UNSPECIFIED; Translations: [LOW BACK PAIN, UNSPECIFIED] Onset: 02-09-2022 Unclassified (8 sources) Onset: 07-25-2023 Resolved: 07-24-2024 07-25-2023 Results Test Name Value Interpretation Reference Range Facility Aspartate Amino Transferaseo n 08-28-2024 AST [Catalytic activity/Vol] 15 U/L Normal [facility] Comment on above: Performed By: #### B MP, AST, TSH3 #### [address] Aspartate aminotransferase [ Enzymatic activity/volume] in Serum or PlasmaOrdered By: Alfred Baron on 08-28-2024 AST [Catalytic activity/Vol] Aspartate aminotransferase [Enzymatic activity/volume] in Serum or Plasma [facility] Basic Metabolic Panelon Anion gap [Moles/Vol] 8.9 mmol/L Normal 6.0-15.0 [facility] Comment on above: Performed By: #### B MP, AST, TSH3 #### [facility] [address] Calcium [Mass/Vol] 9.0 mg/dL Normal 8.6-10.3 [facility] Comment on above: Performed By: #### B MP, AST, TSH3 #### [facility] [address] [place] [address] [place] Chloride [Moles/Vol] 106 mmol/L Normal 98-107 [facility] Comment on above: Performed By: #### B MP, AST, TSH3 #### [facility] [address] [place] [address] [place] CO2 [Moles/Vol] 29.3 mmol/L Normal 21.0-31.0 [facility] Comment on above: Performed By: #### B MP, AST, TSH3 #### [address] Creatinine [Mass/Vol] 0.87 mg/dL Normal 0.70-1.30 [facility] Comment on above: Performed By: #### B MP, AST, TSH3 #### [place] [address] [place] GFR/1.73 sq M.predicted MDRD (S/P/Bld) [Vol rate/Area] mL/min/{1.73_m2} Normal [facility] Comment on above: Performed By: #### B MP, AST, TSH3 #### [address] Glucose [Mass/Vol] 83 mg/dL Normal 70-100 [facility] Comment on above: Result Comment: [place] om Glucose Reference Range is dependent on time and content of last meal. Glucose of more than 200 mg/dL in a nonstressed, ambulatory subject supports the diagnosis of Diabetes Mellitus. ADA recommended reference range Performed By: #### B MP, AST, TSH3 #### [place] [address] [place] Potassium [Moles/Vol] 4.2 mmol/L Normal 3.5-5.1 [facility] Comment on above: Performed By: #### B MP, AST, TSH3 #### [facility] [address] Sodium [Moles/Vol] 140 mmol/L Normal 136-145 [facility] Comment on above: Performed By: #### B MP, AST, TSH3 #### [facility] [address] [place] [address] [place] Urea nitrogen [Mass/Vol] 27 mg/dL High 7-25 [facility] Comment on above: Performed By: #### B MP, AST, TSH3 #### [facility] [address] Calcium [Mass/volume] in Ser um or PlasmaOrdered By: Alfred Baron on 08-28-2024 Calcium [Mass/Vol] Calcium [Mass/volume ] in Serum or Plasma 8.6-10.3 [facility] Carbon dioxide, total [Moles /volume] in Serum or PlasmaOrdered By: Alfred Baron on 08-28-2024 CO2 [Moles/Vol] Carbon dioxide, tota l [Moles/volume] in Serum or Plasma 21.0-31.0 [facility] Chloride [Moles/volume] in S ky or PlasmaOrdered By: Alfred Baron on 08-28-2024 Chloride [Moles/Vol] Chloride [Moles/volume] in Serum or Plasma 98-107 [facility] Creatinine [Mass/volume] in Serum or PlasmaOrdered By: Alfred Baron on 08-28-2024 Creatinine [Mass/Vol] Creatinine [Mass/volume] in Serum or Plasma 0.70-1.30 [facility] Glucose [Mass/volume] in Ser um or PlasmaOrdered By: Alfred Baron on 08-28-2024 Glucose [Mass/Vol] Glucose [Mass/volume ] in Serum or Plasma 70-100 [facility] Comment on above: ADA recommended refe rence rangeRandom Glucose Reference Range is dependent on time and content of last meal. Glucose of more than 200 mg/dL in a nonstressed, ambulatory subject supports the diagnosis of Diabetes Mellitus. No Panel InformationOrdered By: Alfred Baron on 08-28-2024 Estimated GFR (CKD-EPI) > 60.0 mL/Min [facility] Creatinine Clearance (Chem N/A [facility] Potassium [Moles/volume] in Serum or PlasmaOrdered By: Alfred Baron on 08-28-2024 Potassium [Moles/Vol] Potassium [Moles/volume] in Serum or Plasma 3.5-5.1 [facility] Serum or plasma anion gap de terminationOrdered By: Alfred Baron on 08-28-2024 Anion gap [Moles/Vol] Serum or plasma an ion gap determination 6.0-15.0 [facility] Sodium [Moles/volume] in Ser um or PlasmaOrdered By: Alfred Baron on 08-28-2024 Sodium [Moles/Vol] Sodium [Moles/volume ] in Serum or Plasma 136-145 [facility] Thyroid Stimulating Hormoneo n 08-28-2024 TSH Qn 1.04 m[IU]/L Normal 0.45-5.33 [facility] Comment on above: Result Comment: PERF ORMED BY: [place] [address] PATHOLOGIST CORE PASTER DASHAWN GARCIA M.D. Performed By: #### B MP, AST, TSH3 #### [address] Thyrotropin [Units/volume] i n Serum or PlasmaOrdered By: Alfred Baron on 08-28-2024 TSH Qn Thyrotropin [Units/volume] in Serum or Plasma 0.45-5.33 [facility] Urea nitrogen [Mass/volume] in Serum or PlasmaOrdered By: Alfred Baron on 08-28-2024 Urea nitrogen [Mass/Vol] Urea nitrogen [Mass/volume] in Serum or Plasma High 7-25 [facility] No Panel Informationon 08-27 [facility] Basophils Auto (Bld) [#/Vol] on 07-27-2024 Basophils (Bld) [#/Vol] Automated basoph il count 0.0-0.1 [facility] Basophils/100 WBC Auto (Bld) on 07-27-2024 Basophils/100 WBC (Bld) Automated basophil % 0. 2-2.0 [facility] Eosinophils/100 WBC Auto (Bl d)on 07-27-2024 Eosinophils/100 WBC (Bld) Automated eosinophil % 0.9-7.0 [facility] Erythrocyte distribution wid th Auto (RBC) [Ratio]on 07-27-2024 Erythrocyte distribution width (RBC) [Ratio] Erythrocyte distribution width [Ratio] by Automated count 11.0-15.0 [facility] Estimated glomerular filtrat ion rate (GFR) non- Americanon 07-27-2024 GFR/1.73 sq M.predicted among non-blacks MDRD (S/P/Bld) [Vol rate/Area] Estimated glomerular filtration rate (GFR) non- Low >=60 mL/min/1.73 m 2 [facility] Globulin Calc (S) [Mass/Vol] on 07-27-2024 Globulin (S) [Mass/Vol] Serum globulin measurement by calculation (mass/volume) [facility] Hematocrit Auto (Bld) [Volum e fraction]on 07-27-2024 Hematocrit (Bld) [Volume fraction] Hematocrit [Volume Fraction] of Blood by Automated count 42.0-54.0 [facility] Hemoglobin [Mass/volume] in Bloodon 07-27-2024 Hemoglobin (Bld) [Mass/Vol] Hemoglobin [Mass/volume] in Blood 14.0-18.0 [facility] Laboratory - Chemistry and C hemistry - challengeon 07-27-2024 Albumin [Mass/Vol] 3.5 g/dL 3.4-5.0 [facility] ALP [Catalytic activity/Vol] 77 U/L 46-116 [facility] ALT [Catalytic activity/Vol] 24 U/L 16-63 [facility] AST [Catalytic activity/Vol] 20 U/L 15-37 [facility] Bilirubin [Mass/Vol] 0.5 mg/dL 0.2-1.0 [facility] Calcium [Mass/Vol] 8.9 mg/dL 8.5-10.1 [facility] Chloride [Moles/Vol] 104 mmol/L 98-107 [facility] CO2 [Moles/Vol] 28.2 mmol/L 21.0-32.0 [facility] Creatinine [Mass/Vol] 1.29 mg/dL 0.70-1.30 [facility] GFR/1.73 sq M.predicted MDRD (S/P/Bld) [Vol rate/Area] mL/min/{1.73_m2} >=60 mL/min/1.73 m 2 [facility] Glucose [Mass/Vol] 107 mg/dL High 74-106 [facility] Natriuretic peptide B (Bld) [Mass/Vol] 144.0 pg/mL <=1800.0 [facility] Potassium [Moles/Vol] 4.6 mmol/L 3.5-5.1 [facility] Protein [Mass/Vol] 6.7 g/dL 6.4-8.2 [facility] Sodium [Moles/Vol] 139 mmol/L 136-145 [facility] Urea nitrogen [Mass/Vol] 19.0 mg/dL High 7.0-18.0 [facility] Urea nitrogen/Creatinine [Mass ratio] 14.7 mg/mg [facility] Laboratory - Hematology and Cell countson 07-27-2024 Immature granulocytes/100 WBC (Bld) 0.2 % 0.0-0.5 [facility] Leukocytes [#/volume] correc augustine for nucleated erythrocytes in Blood by Automated counon 07-27-2024 WBC corrected for nucl RBC Auto (Bld) [#/Vol] Leukocytes [#/volume] corrected for nucleated erythrocytes in Blood by Automated coun High 4.0-11.0 [facility] Lymphocytes Auto (Bld) [#/Vo l]on 07-27-2024 Lymphocytes (Bld) [#/Vol] Lymphocytes [#/volume] in Blood by Automated count 1.2-3.8 [facility] Lymphocytes/100 WBC Auto (Bl d)on 07-27-2024 Lymphocytes/100 WBC (Bld) Lymphocytes/100 leukocytes in Blood by Automated count Low 20.5-60.0 [facility] MCH Auto (RBC) [Entitic mass ]on 07-27-2024 MCH (RBC) [Entitic mass] MCH [Entitic ma ss] by Automated count 25.9-34.0 [facility] MCHC Auto (RBC) [Mass/Vol]on 07-27-2024 MCHC (RBC) [Mass/Vol] MCHC [Mass/volume] by Automated count 29.9-35.2 [facility] MCV Auto (RBC) [Entitic vol] on 07-27-2024 MCV (RBC) [Entitic vol] MCV [Entitic vol ume] by Automated count 80.0-94.0 [facility] Monocytes Auto (Bld) [#/Vol] on 07-27-2024 Monocytes (Bld) [#/Vol] Automated blood monocyte count High 0.3-0.8 [facility] Monocytes/100 WBC Auto (Bld) on 07-27-2024 Monocytes/100 WBC (Bld) Automated monocyte % 1. 7-12.0 [facility] Neutrophils Auto (Bld) [#/Vo l]on 07-27-2024 Neutrophils (Bld) [#/Vol] Neutrophils [#/volume] in Blood by Automated count High 1.4-6.5 [facility] Neutrophils/100 WBC Auto (Bl d)on 07-27-2024 Neutrophils/100 WBC (Bld) Automated neutrophil % 43.0-75.0 [facility] No Panel Informationon 07-27 Eosinophils # (Auto) 0.1 10 3/uL 0.0-0.7 [facility] Immature Granulocyte # (Auto) 0.02 10 3/uL 0.00-0.03 [facility] Troponin I High Sensitivity 8.6 pg/mL 4.0-76.1 [facility] Comment on above: CUT-OFF POINTS HAVE [...] mean volume Auto (B ld) [Entitic vol]on 07-27-2024 Platelet mean volume (Bld) [Entitic vol] Platelet mean volume [Entitic volume] in Blood by Automated count 9.5-13.5 [facility] Platelets Auto (Bld) [#/Vol] on 07-27-2024 Platelets (Bld) [#/Vol] Platelets [#/vol ume] in Blood by Automated count 150-450 [facility] RBC Auto (Bld) [#/Vol]on RBC (Bld) [#/Vol] Erythrocytes [#/volume] in Blood by Automated count 4.70-6.10 [facility] Serum or plasma albumin/glob ulin mass ratioon 07-27-2024 Albumin/Globulin [Mass ratio] Serum or plasma albumin/globulin mass ratio [facility] Serum or plasma anion gap de terminationon 07-27-2024 Anion gap [Moles/Vol] Serum or plasma an ion gap determination [facility] Estimated glomerular filtrat ion rate (GFR) non- Americanon 07-26-2024 GFR/1.73 sq M.predicted among non-blacks MDRD (S/P/Bld) [Vol rate/Area] Estimated glomerular filtration rate (GFR) non- >=60 mL/min/1.73 m 2 [facility] Laboratory - Chemistry and C hemistry - challengeon 07-26-2024 AST [Catalytic activity/Vol] 15 U/L 15-37 [facility] Calcium [Mass/Vol] 8.9 mg/dL 8.5-10.1 [facility] Chloride [Moles/Vol] 105 mmol/L 98-107 [facility] CO2 [Moles/Vol] 29.4 mmol/L 21.0-32.0 [facility] Creatinine [Mass/Vol] 1.01 mg/dL 0.70-1.30 [facility] GFR/1.73 sq M.predicted MDRD (S/P/Bld) [Vol rate/Area] mL/min/{1.73_m2} >=60 mL/min/1.73 m 2 [facility] Glucose [Mass/Vol] 100 mg/dL 74-106 [facility] Potassium [Moles/Vol] 4.3 mmol/L 3.5-5.1 [facility] Sodium [Moles/Vol] 140 mmol/L 136-145 [facility] TSH Qn 1.223 m[IU]/L 0.358-3.740 [facility] Urea nitrogen [Mass/Vol] 18.0 mg/dL 7.0-18.0 [facility] Urea nitrogen/Creatinine [Mass ratio] 17.8 mg/mg [facility] Serum or plasma anion gap de terminationon 07-26-2024 Anion gap [Moles/Vol] Serum or plasma an ion gap determination [facility] ECG 12 Lead[place] 07-24-2024 Sinus bradycardia, inferior AR age undetermined, abnormal ECG [facility] Work Phone: No Panel Informationon 07-18 Consent obtained: written (The rationale for Mohs as well as the risks, benefits, and alternatives. The risks of infection, scarring, bleeding, prolonged wound healing, incomplete removal, allergy to anesthesia or meds, nerve injury, and recurrence were addressed.) Lilly Protocol: Procedure explained and questions answered to [...] sodium bicarbonate Procedure Details: Biopsy accession number: [id number] Biopsy lab: [facility] Date of biopsy: 05/21/2024 Frozen section biopsy [...] 0. Tumor free (more content not included)... [facility] No Panel InformationOrdered By: Aniya Meyer on 07-18-2024 [facility] No Panel Informationon 05-21 Type of biopsy: [...] taken Amount of lidocaine used: 1.0 cc [facility] Basophils Auto (Bld) [#/Vol] on 04-11-2024 Basophils (Bld) [#/Vol] Automated basoph il count 0.0-0.1 [facility] Basophils/100 WBC Auto (Bld) on 04-11-2024 Basophils/100 WBC (Bld) Automated basophil % 0. 2-2.0 [facility] Eosinophils/100 WBC Auto (Bl d)on 04-11-2024 Eosinophils/100 WBC (Bld) Automated eosinophil % 0.9-7.0 [facility] Erythrocyte distribution wid th Auto (RBC) [Ratio]on 04-11-2024 Erythrocyte distribution width (RBC) [Ratio] Erythrocyte distribution width [Ratio] by Automated count 11.0-15.0 [facility] Hematocrit Auto (Bld) [Volum e fraction]on 04-11-2024 Hematocrit (Bld) [Volume fraction] Hematocrit [Volume Fraction] of Blood by Automated count 42.0-54.0 [facility] Hemoglobin [Mass/volume] in Bloodon 04-11-2024 Hemoglobin (Bld) [Mass/Vol] Hemoglobin [Mass/volume] in Blood 14.0-18.0 [facility] Iron binding capacity [Mass/ volume] in Serum or Plasmaon 04-11-2024 Iron binding capacity [Mass/Vol] Iron binding capacity [Mass/volume] in Serum or Plasma 250.0-450.0 [facility] Iron saturation [Mass Fracti on] in Serum or Plasmaon 04-11-2024 Iron saturation [Mass fraction] Iron saturation [Mass Fraction] in Serum or Plasma [facility] Laboratory - Chemistry and C hemistry - challengeon 04-11-2024 Ferritin [Mass/Vol] 88.0 ng/mL 26.0-388.[address] [facility] Iron [Mass/Vol] 77.0 ug/dL 65.0-175.0 [facility] Laboratory - Hematology and Cell countson 04-11-2024 Immature granulocytes/100 WBC (Bld) 0.2 % 0.0-0.5 [facility] Leukocytes [#/volume] correc augustine for nucleated erythrocytes in Blood by Automated counon 04-11-2024 WBC corrected for nucl RBC Auto (Bld) [#/Vol] Leukocytes [#/volume] corrected for nucleated erythrocytes in Blood by Automated coun 4.0-11.0 [facility] Lymphocytes Auto (Bld) [#/Vo l]on 04-11-2024 Lymphocytes (Bld) [#/Vol] Lymphocytes [#/volume] in Blood by Automated count 1.2-3.8 [facility] Lymphocytes/100 WBC Auto (Bl d)on 04-11-2024 Lymphocytes/100 WBC (Bld) Lymphocytes/100 leukocytes in Blood by Automated count Low 20.5-60.0 [facility] MCH Auto (RBC) [Entitic mass ]on 04-11-2024 MCH (RBC) [Entitic mass] MCH [Entitic ma ss] by Automated count 25.9-34.0 [facility] MCHC Auto (RBC) [Mass/Vol]on 04-11-2024 MCHC (RBC) [Mass/Vol] MCHC [Mass/volume] by Automated count 29.9-35.2 [facility] MCV Auto (RBC) [Entitic vol] on 04-11-2024 MCV (RBC) [Entitic vol] MCV [Entitic vol ume] by Automated count High 80.0-94.0 [facility] Monocytes Auto (Bld) [#/Vol] on 04-11-2024 Monocytes (Bld) [#/Vol] Automated blood monocyte count High 0.3-0.8 [facility] Monocytes/100 WBC Auto (Bld) on 04-11-2024 Monocytes/100 WBC (Bld) Automated monocyte % 1. 7-12.0 [facility] Neutrophils Auto (Bld) [#/Vo l]on 04-11-2024 Neutrophils (Bld) [#/Vol] Neutrophils [#/volume] in Blood by Automated count High 1.4-6.5 [facility] Neutrophils/100 WBC Auto (Bl d)on 04-11-2024 Neutrophils/100 WBC (Bld) Automated neutrophil % 43.0-75.0 [facility] No Panel Informationon 04-11 Eosinophils # (Auto) 0.1 10 3/uL 0.0-0.7 [facility] Immature Granulocyte # (Auto) 0.02 10 3/uL 0.00-0.03 [facility] Platelet mean volume Auto (B ld) [Entitic vol]on 04-11-2024 Platelet mean volume (Bld) [Entitic vol] Platelet mean volume [Entitic volume] in Blood by Automated count 9.5-13.5 [facility] Platelets Auto (Bld) [#/Vol] on 04-11-2024 Platelets (Bld) [#/Vol] Platelets [#/vol ume] in Blood by Automated count 150-450 [facility] RBC Auto (Bld) [#/Vol]on RBC (Bld) [#/Vol] Erythrocytes [#/volume] in Blood by Automated count 4.70-6.10 [facility] No Panel Informationon 02-13 [facility] NUCLEAR STRESS TESTon 2023 NUCLEAR STRESS TEST Interpreted By: Rose Green and Giannuzzi Michael STUDY: MYOCARDIAL PERFUSION STRESS TEST WITH EXERCISE Performing facility: [facility], [address] [place] [address], [address] Provider: August Baron DO, FACC PCP: Dr. Nohemy Canela Supervising provider: August Baron DO, FACC INDICATION: Chest Pain; HISTORY: Gender: M; Age: 83 y/o ; Height: HT 175.3 cm cm; Weight: WT 88.451 kg kg. CAD; High Cholesterol; Previous AR; HTN; Arrhythmias; Chest Pain; Quit smoking Unknown years ago. Cardiac catheterization on 2014, 2015, 2020. PTCA on 2014,2015, 2020. COMPARISON: Previous nuclear testing completed [id number] at [place]. ACCESSION NUMBER(S): [id number] ORDERING CLINICIAN: BRENDON BARON TECHNIQUE: ONE DAY [...] Rose Green 01/04/2024 4:22 PM Dictation workstation: [id number] Normal [facility] ECG 12 Leadon 12-28-2023 Sinus bradycardia, first-degree AV block, low voltage, abnormal ECG [facility] Work Phone: [facility] Work Phone: Basophils Auto (Bld) [#/Vol] on 12-16-2023 Basophils (Bld) [#/Vol] 0.0 10 3/uL 0.0-0.1 [facility] Basophils/100 WBC Auto (Bld) on 12-16-2023 Basophils/100 WBC (Bld) 0.3 % 0.2-2.0 [facility] Eosinophils/100 WBC Auto (Bl d)on 12-16-2023 Eosinophils/100 WBC (Bld) 1.0 % 0.9-7.0 [facility] Erythrocyte distribution wid th Auto (RBC) [Ratio]on 12-16-2023 Erythrocyte distribution width (RBC) [Ratio] 22.2 % High 11.0-15.0 [facility] Estimated glomerular filtrat ion rate (GFR) non- Americanon 12-16-2023 GFR/1.73 sq M.predicted among non-blacks MDRD (S/P/Bld) [Vol rate/Area] mL/min/{1.73_m2} >=60 [facility] Fibrin D-dimer [Presence] in Platelet poor plasma by Latex agglutinationon 12-16-2023 Fibrin D-dimer LA Ql (PPP) <0.19 mg/L FEU <=0.59 [facility] Comment on above: Increases in D-Dimer [...] Hematocrit (Bld) [Volume fraction] 47.6 % 42.0-54.0 [facility] Hemoglobin [Mass/volume] in Bloodon 12-16-2023 Hemoglobin (Bld) [Mass/Vol] 15.6 g/dL 14.0-18.0 [facility] Laboratory - Chemistry and C hemistry - challengeon 12-16-2023 Calcium [Mass/Vol] 9.0 mg/dL 8.5-10.1 [facility] Chloride [Moles/Vol] 105 mmol/L 98-107 [facility] CO2 [Moles/Vol] 27.8 mmol/L 21.0-32.0 [facility] Creatinine [Mass/Vol] 1.12 mg/dL 0.70-1.30 [facility] GFR/1.73 sq M.predicted MDRD (S/P/Bld) [Vol rate/Area] mL/min/{1.73_m2} >=60 [facility] Glucose [Mass/Vol] 174 mg/dL High 74-106 [facility] Natriuretic peptide B (Bld) [Mass/Vol] 129.0 pg/mL <=1800.0 [facility] Potassium [Moles/Vol] 4.0 mmol/L 3.5-5.1 [facility] Sodium [Moles/Vol] 139 mmol/L 136-145 [facility] Urea nitrogen [Mass/Vol] 20.0 mg/dL High 7.0-18.0 [facility] Urea nitrogen/Creatinine [Mass ratio] 17.9 mg/mg [facility] Laboratory - Hematology and Cell countson 12-16-2023 Immature granulocytes/100 WBC (Bld) 0.1 % 0.0-0.5 [facility] Leukocytes [#/volume] correc augustine for nucleated erythrocytes in Blood by Automated counon 12-16-2023 WBC corrected for nucl RBC Auto (Bld) [#/Vol] 8.8 10 3/uL 4.0-11.0 [facility] Lymphocytes Auto (Bld) [#/Vo l]on 12-16-2023 Lymphocytes (Bld) [#/Vol] 2.4 10 3/uL 1.2-3.8 [facility] Lymphocytes/100 WBC Auto (Bl d)on 12-16-2023 Lymphocytes/100 WBC (Bld) 27.3 % 20.5-60.0 [facility] MCH Auto (RBC) [Entitic mass ]on 12-16-2023 MCH (RBC) [Entitic mass] 28.7 pg 25.9-34.0 [facility] MCHC Auto (RBC) [Mass/Vol]on 12-16-2023 MCHC (RBC) [Mass/Vol] 32.8 g/dL 29.9-35.2 [facility] MCV Auto (RBC) [Entitic vol] on 12-16-2023 MCV (RBC) [Entitic vol] 87.7 fL 80.0-94.0 [facility] Monocytes Auto (Bld) [#/Vol] on 12-16-2023 Monocytes (Bld) [#/Vol] 0.8 10 3/uL 0.3-0.8 [facility] Monocytes/100 WBC Auto (Bld) on 12-16-2023 Monocytes/100 WBC (Bld) 9.0 % 1.7-12.0 [facility] Neutrophils Auto (Bld) [#/Vo l]on 12-16-2023 Neutrophils (Bld) [#/Vol] 5.5 10 3/uL 1.4-6.5 [facility] Neutrophils/100 WBC Auto (Bl d)on 12-16-2023 Neutrophils/100 WBC (Bld) 62.3 % 43.0-75.0 [facility] No Panel Informationon 12-15 Eosinophils # (Auto) 0.1 10 3/uL 0.0-0.7 [facility] Immature Granulocyte # (Auto) 0.01 10 3/uL 0.00-0.03 [facility] Troponin I High Sensitivity 7.3 pg/mL 4.0-76.1 [facility] Comment on above: CUT-OFF POINTS HAVE [...] volume (Bld) [Entitic vol] 9.8 fL 9.5-13.5 [facility] Platelets Auto (Bld) [#/Vol] on 12-16-2023 Platelets (Bld) [#/Vol] 178 10 3/uL 150-450 [facility] RBC Auto (Bld) [#/Vol]on RBC (Bld) [#/Vol] 5.43 10 6/uL 4.70-6.[address] [facility] Serum or plasma anion gap de terminationon 12-16-2023 Anion gap [Moles/Vol] 10.2 mmol/L [facility] Basophils Auto (Bld) [#/Vol] on 11-22-2023 Basophils (Bld) [#/Vol] 0.0 10 3/uL 0.0-0.1 [facility] Basophils/100 WBC Auto (Bld) on 11-22-2023 Basophils/100 WBC (Bld) 0.6 % 0.2-2.0 [facility] Eosinophils/100 WBC Auto (Bl d)on 11-22-2023 Eosinophils/100 WBC (Bld) 2.6 % 0.9-7.0 [facility] Erythrocyte distribution wid th Auto (RBC) [Ratio]on 11-22-2023 Erythrocyte distribution width (RBC) [Ratio] 24.3 % High 11.0-15.0 [facility] Ferritin [Mass/volume] in Se rum or PlasmaOrdered By: Miriam Juarez on 11-22-2023 Ferritin [Mass/Vol] 146.7 ng/mL Normal 23.9-336.2 [facility] Comment on above: Result Comment: PERF ORMED BY: [place] [address] PATHOLOGIST CORE PASTER GABINO ARCOS M.D. Performed By: #### F ER #### [address] Hematocrit Auto (Bld) [Volum e fraction]on 11-22-2023 Hematocrit (Bld) [Volume fraction] 47.9 % 42.0-54.0 [facility] Hemoglobin [Mass/volume] in Bloodon 11-22-2023 Hemoglobin (Bld) [Mass/Vol] 15.3 g/dL 14.0-18.0 [facility] Iron binding capacity [Mass/ volume] in Serum or Plasmaon 11-22-2023 Iron binding capacity [Mass/Vol] 293.0 ug/dL 250.0-450.0 [facility] Iron saturation [Mass Fracti on] in Serum or Plasmaon 11-22-2023 Iron saturation [Mass fraction] 28.3 % [facility] Laboratory - Chemistry and C hemistry - challengeon 11-22-2023 Iron [Mass/Vol] 83.0 ug/dL 65.0-175.0 [facility] Laboratory - Hematology and Cell countson 11-22-2023 Immature granulocytes/100 WBC (Bld) 0.3 % 0.0-0.5 [facility] Leukocytes [#/volume] correc augustine for nucleated erythrocytes in Blood by Automated counon 11-22-2023 WBC corrected for nucl RBC Auto (Bld) [#/Vol] 7.2 10 3/uL 4.0-11.0 [facility] Lymphocytes Auto (Bld) [#/Vo l]on 11-22-2023 Lymphocytes (Bld) [#/Vol] 1.8 10 3/uL 1.2-3.8 [facility] Lymphocytes/100 WBC Auto (Bl d)on 11-22-2023 Lymphocytes/100 WBC (Bld) 25.3 % 20.5-60.0 [facility] MCH Auto (RBC) [Entitic mass ]on 11-22-2023 MCH (RBC) [Entitic mass] 27.8 pg 25.9-34.0 [facility] MCHC Auto (RBC) [Mass/Vol]on 11-22-2023 MCHC (RBC) [Mass/Vol] 31.9 g/dL 29.9-35.2 [facility] MCV Auto (RBC) [Entitic vol] on 11-22-2023 MCV (RBC) [Entitic vol] 86.9 fL 80.0-94.0 [facility] Monocytes Auto (Bld) [#/Vol] on 11-22-2023 Monocytes (Bld) [#/Vol] 0.9 10 3/uL High 0.3-0.8 [facility] Monocytes/100 WBC Auto (Bld) on 11-22-2023 Monocytes/100 WBC (Bld) 12.3 % High 1.7-12.0 [facility] Neutrophils Auto (Bld) [#/Vo l]on 11-22-2023 Neutrophils (Bld) [#/Vol] 4.3 10 3/uL 1.4-6.5 [facility] Neutrophils/100 WBC Auto (Bl d)on 11-22-2023 Neutrophils/100 WBC (Bld) 58.9 % 43.0-75.0 [facility] No Panel Informationon 11-21 Eosinophils # (Auto) 0.2 10 3/uL 0.0-0.7 [facility] Immature Granulocyte # (Auto) 0.02 10 3/uL 0.00-0.03 [facility] Platelet mean volume Auto (B ld) [Entitic vol]on 11-22-2023 Platelet mean volume (Bld) [Entitic vol] 9.7 fL 9.5-13.5 [facility] Platelets Auto (Bld) [#/Vol] on 11-22-2023 Platelets (Bld) [#/Vol] 184 10 3/uL 150-450 [facility] RBC Auto (Bld) [#/Vol]on RBC (Bld) [#/Vol] 5.51 10 6/uL 4.70-6.[address] [facility] Apulo 10-26-2023 L Specimen: [id number] Received: 10/26/23 Status: ANSHUL Siddiqimaranda Num: [id number] Spec Type: Surgical Subm Dr: Colleen Ochoa MD Tissues: A Colon Biopsy (RANDOM COLON BX) B Colon Biopsy (RECTAL POLYPS) Procedures: HE/4, Gross/Micro L4/2 Age/ Patient Sex Location Account Attending Physician Valentín Bukcner 83/M [id number] Colleen Ochoa MD SPEC NUM: [id number] RECD: 10/26/23 STATUS: ANSHUL ZARATE NUM: [id number] MODESTA: 10/26/23- SUBM DR: Colleen Ochoa MD ENTERED: 10/26/[address] [facility] DR: SPEC TYPE: Surgical DEPT: S ORDERED: [...] stools. Rule out microscopic colitis ---- Specimen: [id number] Received: 10/26/23 Status: ANSHUL Zarate Num: [id number] Spec Type: Surgical Subm Dr: Colleen Ochoa MD Tissues: A Colon Biopsy (RANDOM COLON BX) B Colon Biopsy (RECTAL POLYPS) Procedures: HE/Silver, Gross/Micro L4/2 ---- Patient: Valentín Buckner [id number] (Continued) ---- Specimen: [id number] Received: 10/26/23 (Continued) Signed (signature on file) Kika Jade MD 10/27/23 1127 ---- Specimen: [id number] Received: 10/26/23 Status: ANSHUL Zarate Num: [id number] Spec Type: Surgical Subm Dr: Colleen Ochoa MD Tissues: A Colon Biopsy (RANDOM COLON BX) B Colon Biopsy (RECTAL POLYPS) Procedures: HE/Silver, Gross/Micro L4/2 ---- Patient: HemalValentín garcia Jose [id number] (Continued) ---- Specimen: [id number] Received: 10/26/23 (Continued) CPT Codes 08988m2 ---- ---- Specimen: [id number] Received: 10/26/23 Status: ANSHUL Zarate Num: [id number] Spec Type: Surgical Subm Dr: Colleen Ochoa MD Tissues: A Colon Biopsy (RANDOM COLON BX) B Colon Biopsy (RECTAL POLYPS) Procedures: HE/4, Gross/Micro L4/2 ---- Patient: Valentín Buckner [id number] (Continued) ---- Signed (signature on file) Kika Jade MD 10/27/231126 Normal [facility] Elastase.pancreatic [Mass/ma ss] in Stoolon 10-20-2023 Elastase.pancreatic (Stl) [Mass/Mass] 242 >200 [facility] Comment on above: Result Units: ug Marissa st./g Severe Pancreatic Insufficiency: <100 Moderate Pancreatic Insufficiency: 100 - 200 Normal: >200Performed at: BN - [facility] [id number] Director: Christophe Matthew MD, Phone: [phone] HIV 1 and HIV-2 antibody ass ay with HIV-1 p24 antigen detectionon 10-20-2023 HIV 1+2 Ab+HIV1 p24 Ag IA Ql Non-Reactive Non Reactive [facility] Comment on above: HIV NegativeHIV-1/HI V-2 antibodies and HIV-1 p24 antigen were NOTdetected. There is no laboratory evidence of HIV infection.Performed at: - [facility] [place], [place] [id number] Director: Terell Silva PhD, Phone: [phone] IgA [Mass/volume] in Serum o r Plasmaon 10-20-2023 IgA [Mass/Vol] 150 mg/dL 61-437 [facility] Comment on above: Performed at: - [facility] [address] [id number] Director: Terell Silva PhD, Phone: [phone] Laboratory - Chemistry and C hemistry - challengeon 10-20-2023 TSH Qn 1.511 m[IU]/L 0.358-3.740 [facility] Laboratory - Hematology and Cell countson 10-20-2023 ESR (Bld) [Velocity] 12 mm/h <=20 [facility] No Panel Informationon 10-19 C-Reactive Protein, Quantitative <0.50 mg/dL <=0.50 [facility] Endomysial IgA Antibody Negative Negative [facility] Clostridium difficile (PCR)(LAB) Negative NEGATIVE [facility] Miscellaneous Test Comment See comment [facility] Comment on above: Specimen Source: [facility] Stool - 700.100 Ova & Parasite Result 1 Comment . [facility] Comment on above: No ova, cysts, or pa rasites seen.One negative specimen does not rule out the possibility ofa parasitic infection.Performed at: [facility] [id number] [place], [place] [id number] Director: Terell Silva PhD, Phone: [phone] Ova and Parasites (LAB) Final report . [facility] Comment on above: These results were o btained using wet preparation(s) andtrichrome stained smear. This test does not include testingfor Cryptosporidium parvum, Cyclospora, or Microsporidia. Stool Calprotectin 102 ug/g 0-120 [facility] Comment on above: Concentration Interp retation Follow-Up< 5 - 50 ug/g Normal None>50 -120 ug/g Borderline Re-evaluate in 4-6 weeks >120 ug/g Abnormal Repeat as clinically indicatedPerformed at: - [facility] [address] [id number] Director: Christophe Matthew MD, Phone: [phone] Stool Campylobacter Culture Res 1 See comment [facility] Comment on above: [facility], No Panel InformationOrdered By: Colleen Ochoa on 10-20-2023 E coli Shiga Toxin EIA [facility] Salmonella/Shigella Screen [facility] Serum gliadin peptide IgA an tibody assay (units/volume)on 10-20-2023 Gliadin peptide IgA Qn (S) 3 units 0-19 [facility] Comment on above: Negative 0 - 19 Weak Positive 20 - 30 Moderate to Strong Positive >30 Serum gliadin peptide IgG an tibody assay (units/volume)on 10-20-2023 Gliadin peptide IgG Qn (S) 2 units 0-19 [facility] Comment on above: Negative 0 - 19 Weak Positive 20 - 30 Moderate to Strong Positive >30 Serum tissue transglutaminas e (tTG) IgA antibody assay (units/volume)on 10-20-2023 tTG IgA Qn (S) <2 U/mL 0-3 [facility] Comment on above: Negative 0 - 3 Weak Positive 4 - 10 Positive >10 Tissue Transglutaminase (tTG) has been identified as the endomysial antigen. Studies have demonstr- ated that endomysial IgA antibodies have over 99% specificity for gluten sensitive enteropathy. Serum tissue transglutaminas e (tTG) IgG antibody assay (units/volume)on 10-20-2023 tTG IgG Qn (S) 3 U/mL 0-5 [facility] Comment on above: Negative 0 - 5 Weak Positive 6 - 9 Positive >9 Albumin [Mass/volume] in Ser um or Plasmaon 2023 Albumin [Mass/Vol] 4.0 g/dL 2.9-4.4 [facility] Basophils Auto (Bld) [#/Vol] on 2023 Basophils (Bld) [#/Vol] 0.0 10 3/uL 0.0-0.1 [facility] Basophils/100 WBC Auto (Bld) on 2023 Basophils/100 WBC (Bld) 0.4 % 0.2-2.0 [facility] Eosinophils/100 WBC Auto (Bl d)on 2023 Eosinophils/100 WBC (Bld) 2.9 % 0.9-7.0 [facility] Erythrocyte distribution wid th Auto (RBC) [Ratio]on 2023 Erythrocyte distribution width (RBC) [Ratio] 22.1 % 11.0-15.0 [facility] Hematocrit Auto (Bld) [Volum e fraction]on 2023 Hematocrit (Bld) [Volume fraction] 43.4 % 42.0-54.0 [facility] Hemoglobin [Mass/volume] in Bloodon 2023 Hemoglobin (Bld) [Mass/Vol] 13.1 g/dL 14.0-18.0 [facility] IgA [Mass/volume] in Serum o r Plasmaon 2023 IgA [Mass/Vol] 151 mg/dL 61-437 [facility] IgG [Mass/volume] in Serum o r Plasmaon 2023 IgG [Mass/Vol] 911 mg/dL 603-1613 [facility] IgM [Mass/volume] in Serum o r Plasmaon 2023 IgM [Mass/Vol] 53 mg/dL 15-143 [facility] Iron binding capacity [Mass/ volume] in Serum or Plasmaon 2023 Iron binding capacity [Mass/Vol] 411.0 ug/dL 250.0-450.0 [facility] Iron saturation [Mass Fracti on] in Serum or Plasmaon 2023 Iron saturation [Mass fraction] 11.2 % [facility] Laboratory - Chemistry and C hemistry - challengeon 2023 Ferritin [Mass/Vol] 13.0 ng/mL 26.0-388.[address] [facility] Iron [Mass/Vol] 46.0 ug/dL 65.0-175.0 [facility] Laboratory - Hematology and Cell countson 2023 Immature granulocytes/100 WBC (Bld) 0.1 % 0.0-0.5 [facility] Leukocytes [#/volume] correc augustine for nucleated erythrocytes in Blood by Automated counon 2023 WBC corrected for nucl RBC Auto (Bld) [#/Vol] 8.0 10 3/uL 4.0-11.0 [facility] Lymphocytes Auto (Bld) [#/Vo l]on 2023 Lymphocytes (Bld) [#/Vol] 2.2 10 3/uL 1.2-3.8 [facility] Lymphocytes/100 WBC Auto (Bl d)on 2023 Lymphocytes/100 WBC (Bld) 27.5 % 20.5-60.0 [facility] MCH Auto (RBC) [Entitic mass ]on 2023 MCH (RBC) [Entitic mass] 25.0 pg 25.9-34.0 [facility] MCHC Auto (RBC) [Mass/Vol]on 2023 MCHC (RBC) [Mass/Vol] 30.2 g/dL 29.9-35.2 [facility] MCV Auto (RBC) [Entitic vol] on 2023 MCV (RBC) [Entitic vol] 83.0 fL 80.0-94.0 [facility] Monocytes Auto (Bld) [#/Vol] on 2023 Monocytes (Bld) [#/Vol] 1.0 10 3/uL 0.3-0.8 [facility] Monocytes/100 WBC Auto (Bld) on 2023 Monocytes/100 WBC (Bld) 12.1 % 1.7-12.0 [facility] Neutrophils Auto (Bld) [#/Vo l]on 2023 Neutrophils (Bld) [#/Vol] 4.5 10 3/uL 1.4-6.5 [facility] Neutrophils/100 WBC Auto (Bl d)on 2023 Neutrophils/100 WBC (Bld) 57.0 % 43.0-75.0 [facility] No Panel Informationon 10-12 Eosinophils # (Auto) 0.2 10 3/uL 0.0-0.7 [facility] Immature Granulocyte # (Auto) 0.01 10 3/uL 0.00-0.03 [facility] Protein Electrophoresis M-Johnnie Not Observed g/dL Not Observed [facility] Protein Electrophoresis Note Comment . [facility] Comment on above: Protein electrophore sis scan will follow via computer,mail, or dielectric tester delivery.Performed at: [facility] [id number] Director: Terell Silva PhD, Phone: [phone] Platelet mean volume Auto (B ld) [Entitic vol]on 2023 Platelet mean volume (Bld) [Entitic vol] 10.1 fL 9.5-13.5 [facility] Platelets Auto (Bld) [#/Vol] on 2023 Platelets (Bld) [#/Vol] 236 10 3/uL 150-450 [facility] Protein [Mass/volume] in Ser um or Plasmaon 2023 Protein [Mass/Vol] 6.8 g/dL 6.0-8.5 [facility] RBC Auto (Bld) [#/Vol]on RBC (Bld) [#/Vol] 5.23 10 6/uL 4.70-6.[address] [facility] Serum globulin measurement ( mass/volume)on 2023 Globulin (S) [Mass/Vol] 2.8 g/dL 2.2-3.9 [facility] Serum or plasma albumin/glob ulin mass ratioon 2023 Albumin/Globulin [Mass ratio] 1.5 {ratio} 0.7-1.7 [facility] Serum or plasma alpha 1 glob ulin measurement by electrophoresis (mass/volume)on 2023 Alpha 1 globulin Elph [Mass/Vol] 0.3 g/dL 0.0-0.4 [facility] Serum or plasma alpha 2 glob ulin measurement by electrophoresis (mass/volume)on 2023 Alpha 2 globulin Elph [Mass/Vol] 0.7 g/dL 0.4-1.0 [facility] Serum or plasma beta globuli n measurement by electrophoresis (mass/volume)on 2023 Beta globulin Elph [Mass/Vol] 1.0 g/dL 0.7-1.3 [facility] Serum or plasma gamma globul in measurement by electrophoresis (mass/volume)on 2023 Gamma globulin Elph [Mass/Vol] 0.8 g/dL 0.4-1.8 [facility] Serum or plasma immunoelectr ophoresis interpretationon 2023 Interpretation IEP [Interp] Comment . [facility] Comment on above: No monoclonality det ected. Aspartate aminotransferase [ Enzymatic activity/volume] in Serum or PlasmaOrdered By: Florence Aden on 08-29-2023 AST [Catalytic activity/Vol] 15 U/L 13-39 [facility] Calcium [Mass/volume] in Ser um or PlasmaOrdered By: Florence Aden on 08-29-2023 Calcium [Mass/Vol] 8.7 mg/dL 8.6-10.3 [facility] Carbon dioxide, total [Moles /volume] in Serum or PlasmaOrdered By: Florence Aden on 08-29-2023 CO2 [Moles/Vol] 26.9 mmol/L 21.0-31.0 [facility] Chloride [Moles/volume] in S ky or PlasmaOrdered By: Florence Adne on 08-29-2023 Chloride [Moles/Vol] 108 mmol/L 98-107 [facility] Creatinine [Mass/volume] in Serum or PlasmaOrdered By: Florence Aden on 08-29-2023 Creatinine [Mass/Vol] 1.11 mg/dL 0.70-1.30 [facility] Glucose [Mass/volume] in Ser um or PlasmaOrdered By: Florence Aden on 08-29-2023 Glucose [Mass/Vol] 95 mg/dL 70-100 [facility] Comment on above: ADA recommended refe rence rangeRandom Glucose Reference Range is dependent on time and content of last meal. Glucose of more than 200 mg/dL in a nonstressed, ambulatory subject supports the diagnosis of Diabetes Mellitus. No Panel InformationOrdered By: Florence Aden on 08-29-2023 Estimated GFR (CKD-EPI) > 60.0 mL/Min [facility] Creatinine Clearance (Chem N/A [facility] Potassium [Moles/volume] in Serum or PlasmaOrdered By: Florence Aden on 08-29-2023 Potassium [Moles/Vol] 4.4 mmol/L 3.5-5.1 [facility] Serum or plasma anion gap de terminationOrdered By: Florence Aden on 08-29-2023 Anion gap [Moles/Vol] 10.5 mmol/L 6.0-15.0 [facility] Sodium [Moles/volume] in Ser um or PlasmaOrdered By: Florence Aden on 08-29-2023 Sodium [Moles/Vol] 141 mmol/L 136-145 [facility] Thyrotropin [Units/volume] i n Serum or PlasmaOrdered By: Florence Aden on 08-29-2023 TSH Qn 2.16 m[IU]/L 0.45-5.33 [facility] Urea nitrogen [Mass/volume] in Serum or PlasmaOrdered By: Florence Aden on 08-29-2023 Urea nitrogen [Mass/Vol] 22 mg/dL 7-25 [facility] ECG 12 Leadon 07-25-2023 Sinus bradycardia, first-degree AV block [facility] Work Phone: [facility] Work Phone: Office Visit (Cardiology)on 03-23-2023 Follow-up visit Diagnoses/Problems [...] outside facility May 2021 [place] [facility] [place] 2021 cardiac cath: pLAD patent stent pCX patent stent oOM2 50-70% RCA patent stent Current daily activity greater than 4 METS without concerning symptoms Normal cardiac ejection fraction May 2021 cardiac cath LVEF 60% Bradycardia (427.89) (R00.1) August 2021 Holter average HR 64 on no AVN agents Likely element of SSS (although PAF rates > 100) November 2022 [employer] nocturnal bradycardia, no high-grade heart block. Orders Overweight with body mass index (BMI) of 28 to 28.9 in adult Healthy Weight Tips; Status:Complete; Done: [id number] Patient Instructions Please bring all medicines, vitamins, [...] MG Oral Tablet Delayed ReleaseTAKE 1 TABLET Mgf-Ifl-Izdqjg Atorvastatin Calcium 40 MG Oral TabletTAKE 1 [...] AM Social (more content not included)... Normal [employer] Aspartate aminotransferase [ Enzymatic activity/volume] in Serum or PlasmaOrdered By: Alfred Baron on 03-21-2023 AST [Catalytic activity/Vol] 13 U/L 13-39 [facility] Calcium [Mass/volume] in Ser um or PlasmaOrdered By: Alfred Baron on 03-21-2023 Calcium [Mass/Vol] 8.5 mg/dL 8.6-10.3 [facility] Carbon dioxide, total [Moles /volume] in Serum or PlasmaOrdered By: Alfred Baron on 03-21-2023 CO2 [Moles/Vol] 29.7 mmol/L 21.0-31.0 [facility] Chloride [Moles/volume] in S ky or PlasmaOrdered By: Alfred Baron on 03-21-2023 Chloride [Moles/Vol] 107 mmol/L 98-107 [facility] Creatinine [Mass/volume] in Serum or PlasmaOrdered By: Alfred Baron on 03-21-2023 Creatinine [Mass/Vol] 0.97 mg/dL 0.70-1.30 [facility] Glucose [Mass/volume] in Ser um or PlasmaOrdered By: Alfred Baron on 03-21-2023 Glucose [Mass/Vol] 83 mg/dL 70-100 [facility] Comment on above: ADA recommended refe rence rangeRandom Glucose Reference Range is dependent on time and content of last meal. Glucose of more than 200 mg/dL in a nonstressed, ambulatory subject supports the diagnosis of Diabetes Mellitus. No Panel InformationOrdered By: Alfred Baron on 03-21-2023 Estimated GFR (CKD-EPI) > 60.0 mL/Min [facility] Creatinine Clearance (Chem N/A [facility] No Panel Informationon 03-21 > 60.0 Normal [facility] [employer] deins 250 DO Work Phone: [phone] 7.8\S\7.8 Normal 6.0-15.0 [facility] [employer] denis 250 DO Work Phone: 8.5\S\8.5 below low threshold 8.6-10.3 [facility] denis 250 DO Work Phone: 29.7\S\29.7 Normal 21.0-31.0 [facility] 250 DO Work Phone: 107\S\107 Normal 98-107 [facility] denis 250 DO Work Phone: 4.5\S\4.5 Normal 3.5-5.1 [facility] 250 DO Work Phone: 140\S\140 Normal 136-145 [facility] [employer] denis 250 DO Work Phone: 0.97\S\0.97 Normal 0.70-1.30 [facility] barrios 250 DO Work Phone: 18\S\18 Normal 7-25 [facility] 250 DO Work Phone: 83\S\83 Normal 70-100 [facility] denis Crandall DO Work Phone: Comment on above: Random Glucose Refer ence Range is dependent on time and content of last meal. Glucose of more than 200 mg/dL in a nonstressed, ambulatory subject supports the diagnosis of Diabetes Mellitus. ADA recommended reference range 13\S\13 Normal 13-39 [facility] denis Crandall DO Work Phone: 1.36\S\1.36 Normal 0.45-5.33 [facility] denis Crandall DO Work Phone: Comment on above: PERFORMED BY:[place] [address] [place] [place], [place] [id number] MEDICAL DIRECTORGABINO ARCOS M.D. Potassium [Moles/volume] in Serum or PlasmaOrdered By: Alfred Baron on 03-21-2023 Potassium [Moles/Vol] 4.5 mmol/L 3.5-5.1 [facility] Radiologyon 03-21-2023 XR Chest 2 Views Normal [facility] denis Crandall DO Work Phone: Serum or plasma anion gap de terminationOrdered By: Alfred Baron on 03-21-2023 Anion gap [Moles/Vol] 7.8 mmol/L 6.0-15.0 [facility] Sodium [Moles/volume] in Ser um or PlasmaOrdered By: Alfred Baron on 03-21-2023 Sodium [Moles/Vol] 140 mmol/L 136-145 [facility] Thyrotropin [Units/volume] i n Serum or PlasmaOrdered By: Alfred Baron on 03-21-2023 TSH Qn 1.36 m[IU]/L 0.45-5.33 [facility] Urea nitrogen [Mass/volume] in Serum or PlasmaOrdered By: Alfred Baron on 03-21-2023 Urea nitrogen [Mass/Vol] 18 mg/dL 01-18 [facility] Office Visit (Cardiology)on 01-03-2023 Follow-up visit Diagnoses/Problems Assessed Bradycardia (427.89) (R00.1) August 2021 Holter average HR 64 on no AVN agents Likely element of SSS (although PAF rates > 100) November 2022 [facility] nocturnal bradycardia, no high-grade heart block. Paroxysmal [...] outside facility May [place] [facility] [place] cardiac cath: pLAD patent stent [...] in adult Healthy Weight Tips; Status:Complete; Done: [id number] Patient Instructions Please bring all medicines, vitamins, [...] bradycardia and he completed a 14-day [employer]. Results reviewed including no evidence of high-grade [...] - 200 (more content not included)... Normal [facility] Tobacco Screening.on 023 Fall risk assessment a) No falls within the last year -[facility] [address] DO Work Phone: Tobacco use status CPHS b) No M -[facility] 250 DO Work Phone: Cardiovasc Arrhythmia Result son 12-08-2022 Cardiovasc Arrhythmia Results Reason For Visit Event Monitor: VALENTÍN is here for the application of a 30 day event monitor in office., Diagnosis: bradycardia, afib Ordering Physician: Florence Mora NP Enrollment sent to: [employer] Monitor number [id number] applied. Holter monitor printed and placed on [...] Appointments Date/TimeProviderSpeci altySite 01/03/2023 11:00 Florence Sales APRN-HWHFlanffukjv[address] [place] 250 DO 07/20/2023 10:00 Brendon Hennessy DOCardiology[address] [facility] 2 [place] 250 DO Signatures Electronically signed by : Rose Green MD; Dec 28 2022 10:28PM EST (Author) Normal [facility] Office Visit (Cardiology)on 11-29-2022 Follow-up visit Diagnoses/Problems [...] concerning symptoms May [place] [facility] Intolerant to plavix and eliquis Daily activity [...] 100 mg daily. October 2022 presented to [facility] [place] to [place]iness. Seen in consultation by [...] day of admit [place] [employer] [place], when he raised up he felt [...] We will proceed with 14-day [employer]. At this time amiodarone has been reduced [...] Screening.on 023 Adult depression screening assessment No [facility] [employer] 250 DO Work Phone: Fall risk assessment a) No falls within the last year [facility] [employer] 250 DO Work Phone: Tobacco use status CPHS b) No M [facility] [employer] 250 DO Work Phone: Alanine aminotransferase [En zymatic activity/volume] in Serum or PlasmaOrdered By: Pedro Corbett on 10-28-2022 ALT [Catalytic activity/Vol] 16 U/L 7-52 [facility] Albumin [Mass/volume] in Ser um or Plasma by Bromocresol green (BCG) dye binding methoOrdered By: Pedro Corbett on 10-28-2022 Albumin BCG dye [Mass/Vol] 4.0 g/dL 3.5-5.7 [facility] Alkaline phosphatase [Enzyma tic activity/volume] in Serum or PlasmaOrdered By: Pedro Corbett on 10-28-2022 ALP [Catalytic activity/Vol] 66 U/L 34-104 [facility] Aspartate aminotransferase [ Enzymatic activity/volume] in Serum or PlasmaOrdered By: Pedro Corbett on 10-28-2022 AST [Catalytic activity/Vol] 17 U/L 13-39 [facility] Basophils Auto (Bld) [#/Vol] Ordered By: Pedro Corbett on 10-28-2022 Basophils (Bld) [#/Vol] 0.0 10*3/uL 0.0-0.2 [facility] Basophils/100 WBC Auto (Bld) Ordered By: Pedro Corbett on 10-28-2022 Basophils/100 WBC (Bld) 0.4 % . [facility] Bilirubin.total [Mass/volume ] in Serum or PlasmaOrdered By: Pedro Corbett on 10-28-2022 Bilirubin [Mass/Vol] 0.3 mg/dL 0.3-1.0 [facility] Calcium [Mass/volume] in Ser um or PlasmaOrdered By: Pedro Corbett on 10-28-2022 Calcium [Mass/Vol] 8.4 mg/dL 8.6-10.3 [facility] Carbon dioxide, total [Moles /volume] in Serum or PlasmaOrdered By: Pedro Corbett on 10-28-2022 CO2 [Moles/Vol] 26.2 mmol/L 21.0-31.0 [facility] Chloride [Moles/volume] in S ky or PlasmaOrdered By: Pedro Corbett on 10-28-2022 Chloride [Moles/Vol] 106 mmol/L 98-107 [facility] Creatine kinase [Enzymatic a ctivity/volume] in Serum or PlasmaOrdered By: Pedro Corbett on 10-28-2022 CK [Catalytic activity/Vol] 84 U/L 30-223 [facility] Creatinine [Mass/volume] in Serum or PlasmaOrdered By: Pedro Corbett on 10-28-2022 Creatinine [Mass/Vol] 1.20 mg/dL 0.70-1.30 [facility] Eosinophils Auto (Bld) [#/Vo l]Ordered By: Pedro Corbett on 10-28-2022 Eosinophils (Bld) [#/Vol] 0.1 10*3/uL 0.0-0.45 [facility] Eosinophils/100 WBC Auto (Bl d)Ordered By: Pedro Corbett on 10-28-2022 Eosinophils/100 WBC (Bld) 0.9 % . [facility] Erythrocyte distribution wid th Auto (RBC) [Ratio]Ordered By: Pedro Corbett on 10-28-2022 Erythrocyte distribution width (RBC) [Ratio] 19.8 % 12.0-14.8 [facility] Globulin Calc (S) [Mass/Vol] Ordered By: Pedro Corbett on 10-28-2022 Globulin (S) [Mass/Vol] 2.5 g/dL [facility] Glucose [Mass/volume] in Ser um or PlasmaOrdered By: Pedro Corbett on 10-28-2022 Glucose [Mass/Vol] 103 mg/dL 70-100 [facility] Comment on above: ADA recommended refe rence rangeRandom Glucose Reference Range is dependent on time and content of last meal. Glucose of more than 200 mg/dL in a nonstressed, ambulatory subject supports the diagnosis of Diabetes Mellitus. Hematocrit Auto (Bld) [Volum e fraction]Ordered By: Pedro Corbett on 10-28-2022 Hematocrit (Bld) [Volume fraction] 40.4 % 38.8-50.0 [facility] Hemoglobin [Mass/volume] in BloodOrdered By: Pedro Corbett on 10-28-2022 Hemoglobin (Bld) [Mass/Vol] 12.9 g/dL 13.0-17.0 [facility] Leukocytes [#/volume] correc augustine for nucleated erythrocytes in Blood by Automated counOrdered By: Pedro Corbett on 10-28-2022 WBC corrected for nucl RBC Auto (Bld) [#/Vol] 8.9 10*3/uL 4.1-10.5 [facility] Lymphocytes Auto (Bld) [#/Vo l]Ordered By: Pedro Corbett on 10-28-2022 Lymphocytes (Bld) [#/Vol] 2.2 10*3/uL 1.00-4.8 [facility] Lymphocytes/100 WBC Auto (Bl d)Ordered By: Pedro Corbett on 10-28-2022 Lymphocytes/100 WBC (Bld) 24.4 % . [facility] MCH Auto (RBC) [Entitic mass ]Ordered By: Pedro Corbett on 10-28-2022 MCH (RBC) [Entitic mass] 25.3 pg 27.5-35.2 [facility] MCHC Auto (RBC) [Mass/Vol]Or dered By: Pedro Corbett on 10-28-2022 MCHC (RBC) [Mass/Vol] 31.8 g/dL 32.5-35.6 [facility] MCV Auto (RBC) [Entitic vol] Ordered By: Pedro Corbett on 10-28-2022 MCV (RBC) [Entitic vol] 79.6 fL 83.5-101 [facility] Magnesium [Mass/volume] in S ky or PlasmaOrdered By: Trena Pena on 10-28-2022 Magnesium [Mass/Vol] 1.9 mg/dL 1.9-2.7 [facility] Monocyte distribution width [Entitic volume] in Blood by AutomatedOrdered By: Pedro Corbett on 10-28-2022 Monocyte distribution width Auto (Bld) [Entitic vol] 16.55 % 0.00-20.00 [facility] Monocytes Auto (Bld) [#/Vol] Ordered By: Pedro Corbett on 10-28-2022 Monocytes (Bld) [#/Vol] 1.0 10*3/uL 0.0-0.8 [facility] Monocytes/100 WBC Auto (Bld) Ordered By: Pedro Corbett on 10-28-2022 Monocytes/100 WBC (Bld) 11.8 % . [facility] Natriuretic peptide B [Mass/ Vol]Ordered By: Pedro Corbett on 10-28-2022 Natriuretic peptide B (Bld) [Mass/Vol] 148.0 pg/mL 5-100 [facility] Neutrophils Auto (Bld) [#/Vo l]Ordered By: Pedro Corbett on 10-28-2022 Neutrophils (Bld) [#/Vol] 5.6 10*3/uL 1.8-7.7 [facility] Neutrophils/100 WBC Auto (Bl d)Ordered By: Pedro Corbett on 10-28-2022 Neutrophils/100 WBC (Bld) 62.5 % . [facility] No Panel InformationOrdered By: Pedro Corbett on 10-28-2022 Estimated GFR (CKD-EPI) > 60.0 mL/Min [facility] Creatinine Clearance (Chem 53.74 [facility] Nucleated erythrocytes [Pres ence] in Blood by Automated countOrdered By: Pedro Corbett on 10-28-2022 Nucleated RBC Auto Ql (Bld) 0.0 /100{WBC} 0-0.5 [facility] Platelet mean volume Auto (B ld) [Entitic vol]Ordered By: Pedro Corbett on 10-28-2022 Platelet mean volume (Bld) [Entitic vol] 7.8 fL 6.6-10.1 [facility] Platelets Auto (Bld) [#/Vol] Ordered By: Pedro Corbett on 10-28-2022 Platelets (Bld) [#/Vol] 215 10*3/uL 150-450 [facility] Potassium [Moles/volume] in Serum or PlasmaOrdered By: Pedro Corbett on 10-28-2022 Potassium [Moles/Vol] 4.2 mmol/L 3.5-5.1 [facility] Protein [Mass/volume] in Ser um or PlasmaOrdered By: Pedro Corbett on 10-28-2022 Protein [Mass/Vol] 6.5 g/dL 6.4-8.9 [facility] RBC Auto (Bld) [#/Vol]Ordere d By: Pedro Corbett on 10-28-2022 RBC (Bld) [#/Vol] 5.08 10*6/uL 3.90-5.[address] [facility] Serum or plasma albumin/glob ulin mass ratioOrdered By: Pedro Corbett on 10-28-2022 Albumin/Globulin [Mass ratio] 1.6 {ratio} [facility] Serum or plasma anion gap de terminationOrdered By: Pedro Corbett on 10-28-2022 Anion gap [Moles/Vol] 11.0 mmol/L 6.0-15.0 [facility] Sodium [Moles/volume] in Ser um or PlasmaOrdered By: Pedro Corbett on 10-28-2022 Sodium [Moles/Vol] 139 mmol/L 136-145 [facility] Thyrotropin [Units/volume] i n Serum or PlasmaOrdered By: Karol Sage on 10-28-2022 TSH Qn 2.15 m[IU]/L 0.45-5.33 [facility] Troponin I.cardiac [Mass/vol ume] in Serum or Plasma by Detection limit <= 0.01 ng/Ordered By: Pedro Corbett on 10-28-2022 Troponin I.cardiac DL <= 0.01 ng/mL [Mass/Vol] 7.4 pg/mL 0.0-20.0 [facility] Urea nitrogen [Mass/volume] in Serum or PlasmaOrdered By: Pedro Corbett on 10-28-2022 Urea nitrogen [Mass/Vol] 23 mg/dL 7-25 [facility] WBC Auto (Bld) [#/Vol]Ordere d By: Pedro Corbett on 10-28-2022 WBC (Bld) [#/Vol] 8.9 10*3/uL 4.1-10.5 [facility] CBC AUTO DIFFon 10-20-2022 BASO # 0.0 103/ul Normal 0.0-0.1 [facility] Comment on above: Performed By: #### C VDTBH #### [facility] [address] [place] [address] Dr. Steve Sevilla Basophils/100 WBC (Bld) 0.4 % Normal 0.2-2.0 [facility] Comment on above: Performed By: #### C VDTBH #### [facility] [address] [place] [address] Dr. Steve Sevilla EO # 0.1 103/ul Normal 0.0-0.7 [facility] Comment on above: Performed By: #### C VDTBH #### [facility] [address] [place] [address] Dr. Steve Sevilla Eosinophils/100 WBC (Bld) 1.1 % Normal 0.9-7.0 [facility] Comment on above: Performed By: #### C VDTBH #### [facility] [address] [place] [address] Dr. Steve Sevilla Erythrocyte distribution width (RBC) [Ratio] 18.6 % Critically high 11.0-15.0 [facility] Comment on above: Performed By: #### C VDTBH #### [facility] [address] [place] [address] Dr. Steve Sevilla Hematocrit (Bld) [Volume fraction] 42.9 % Normal 42.0-54.0 [facility] Comment on above: Performed By: #### C VDTBH #### [facility] [address] [place] [address] Dr. Steve Sevilla Hemoglobin (Bld) [Mass/Vol] 13.0 g/dL Critically low 14.0-18.0 [facility] Comment on above: Performed By: #### C VDTBH #### [facility] [address] [place] [address] Dr. Steve Sevilla IG # 0.03 10e3/ul Normal 0.00-0.03 [facility] Comment on above: Performed By: #### C VDTBH #### [facility] [address] [place] [address] Dr. Steve Sevilla IG % 0.3 % Normal 0.0-0.5 [facility] Comment on above: Performed By: #### C VDTBH #### [facility] [address] [place] [address] Dr. Steve Sevilla LYMPH # 2.6 103/ul Normal 1.2-3.8 [facility] Comment on above: Performed By: #### C VDTBH #### [facility] [address] [place] [address] Dr. Steve Sevilla Lymphocytes/100 WBC (Bld) 23.1 % Normal 20.5-60.0 [facility] Comment on above: Performed By: #### C VDTBH #### [facility] [address] [place] [address] Dr. Steve Sevilla MANUAL DIFF REQ NO Normal [facility] Comment on above: Performed By: #### C VDTBH #### [facility] [address] [place] [address] Dr. Steve Sevilla MCH (RBC) [Entitic mass] 25.0 pg Critically low 25.9-34 .0 [facility] Comment on above: Performed By: #### C VDTBH #### [facility] [address] [place] [address] Dr. Steve Sevilla MCHC (RBC) [Mass/Vol] 30.3 g/dL Normal 29.9-35.2 [facility] Comment on above: Performed By: #### C VDTBH #### [facility] [address] [place] [address] Dr. Steve Sevilla MCV (RBC) [Entitic vol] 82.7 fL Normal 80.0-94.0 [facility] Comment on above: Performed By: #### C VDTBH #### [facility] [address] [place] [address] Dr. Steve Sevilla MONO # 1.2 103/ul Critically high 0.3-0.8 [facility] Comment on above: Performed By: #### C VDTBH #### [facility] [address] [place] [address] Dr. Steve Sevilla Monocytes/100 WBC (Bld) 10.6 % Normal 1.7-12.0 [facility] Comment on above: Performed By: #### C VDTBH #### [facility] [address] [place] [address] Dr. Steve Sevilla NEUT # 7.2 103/ul Critically high 1.4-6.5 [facility] Comment on above: Performed By: #### C VDTBH #### [facility] [address] [place] [address] Dr. Steve Sevilla Neutrophils/100 WBC (Bld) 64.5 % Normal 43.0-75.0 [facility] Comment on above: Performed By: #### C VDTBH #### [facility] [address] [place] [address] Dr. Steve Sevilla Platelet mean volume (Bld) [Entitic vol] 8.9 fL Critically low 9.5-13.5 [facility] Comment on above: Performed By: #### C VDTBH #### [facility] [address] [place] [address] Dr. Steve Sevilla PLT 248 103/ul Normal 150-450 [facility] Comment on above: Performed By: #### C VDTBH #### [facility] [address] [place] [address] Dr. Steve Sevilla RBC 5.19 106/ul Normal 4.70-6.10 [facility] Comment on above: Performed By: #### C VDTBH #### [facility] [address] [place] [address] Dr. Steve Sevilla WBC 11.2 103/ul Critically high 4.0-11.0 [facility] Comment on above: Performed By: #### C VDTBH #### [facility] [address] [place] [address] Dr. Steve Sevilla FERRITINon 10-20-2022 Ferritin [Mass/Vol] 12.0 ng/mL Critically low 26.0-388.0 [facility] Comment on above: Performed By: #### F ETIBC, FERR #### [facility] [address] [address] [address] Steve Sevilla IRON AND TIBCon 10-20-2022 % SATURATION 12.1 % Normal [facility] Comment on above: Performed By: #### F ETIBC, FERR #### [facility] [address] [address] [address] Steve Sevilla Iron [Mass/Vol] 47.0 ug/dL Critically low 65.0-175.0 [facility] Comment on above: Performed By: #### F ETIBC, FERR #### [facility] [address] [address] [address] Steve Sevilla TIBC DIRECT 387.0 ug/dL Normal 250.0-450.0 [facility] Comment on above: Performed By: #### F ETIBC, FERR #### [facility] [address] [address] [address] Steve Sevilla Aspartate aminotransferase [ Enzymatic activity/volume] in Serum or PlasmaOrdered By: Alfred Baron on 10-15-2022 AST [Catalytic activity/Vol] 23 U/L 13-39 [facility] Calcium [Mass/volume] in Ser um or PlasmaOrdered By: Alfred Baron on 10-15-2022 Calcium [Mass/Vol] 8.4 mg/dL 8.6-10.3 [facility] Carbon dioxide, total [Moles /volume] in Serum or PlasmaOrdered By: Alfred Baron on 10-15-2022 CO2 [Moles/Vol] 28.2 mmol/L 21.0-31.0 [facility] Chloride [Moles/volume] in S ky or PlasmaOrdered By: Alfred Baron on 10-15-2022 Chloride [Moles/Vol] 106 mmol/L 98-107 [facility] Creatinine [Mass/volume] in Serum or PlasmaOrdered By: Alfred Baron on 10-15-2022 Creatinine [Mass/Vol] 1.13 mg/dL 0.70-1.30 [facility] Glucose [Mass/volume] in Ser um or PlasmaOrdered By: Alfred Baron on 10-15-2022 Glucose [Mass/Vol] 88 mg/dL 70-100 [facility] Comment on above: ADA recommended refe rence rangeRandom Glucose Reference Range is dependent on time and content of last meal. Glucose of more than 200 mg/dL in a nonstressed, ambulatory subject supports the diagnosis of Diabetes Mellitus. No Panel InformationOrdered By: Alfred Baron on 10-15-2022 Estimated GFR (CKD-EPI) > 60.0 mL/Min [facility] Creatinine Clearance (Chem N/A [facility] No Panel Informationon 10-15 > 60.0 Normal [facility] [employer]Carmen barrios 250 DO Work Phone: 10.4\S\10.4 Normal 6.0-15.0 [facility] [employer] barrios 250 DO Work Phone: 8.4\S\8.4 below low threshold 8.6-10.3 [facility]Carmen barrios 250 DO Work Phone: 28.2\S\28.2 Normal 21.0-31.0 [facility] [employer]en barrios 250 DO Work Phone: [phone] 106\S\106 Normal 98-107 [facility]-Carmen barrios 250 DO Work Phone: [phone] 4.6\S\4.6 Normal 3.5-5.1 [facility]-[place]armen [place] 250 DO Work Phone: [phone] 140\S\140 Normal 136-145 [facility] Michael barrios 250 DO Work Phone: [phone] 1.13\S\1.13 Normal 0.70-1.30 [facility] Rosa-Carmen barrios 250 DO Work Phone: [phone] 19\S\19 Normal 7-25 [facility] [employer]Carmen barrios 250 DO Work Phone: [phone] 88\S\88 Normal 70-100 [facility] [employer]-Carmen barrios 250 DO Work Phone: [phone] Comment on above: Random Glucose Refer ence Range is dependent on time and content of last meal. Glucose of more than 200 mg/dL in a nonstressed, ambulatory subject supports the diagnosis of Diabetes Mellitus. ADA recommended reference range 23\S\23 Normal 13-39 [facility] 250 DO Work Phone: 1.66\S\1.66 Normal 0.45-5.33 [facility] 250 DO Work Phone: Comment on above: PERFORMED BY:[facility] [place], [place] [phone] MEDICAL DIRECTORGABINO ARCOS M.D. Potassium [Moles/volume] in Serum or PlasmaOrdered By: Alfred Baron on 10-15-2022 Potassium [Moles/Vol] 4.6 mmol/L 3.5-5.1 [facility] Radiologyon 10-15-2022 XR Chest 2 Views Normal [facility] [place] [facility] DO Work Phone: Serum or plasma anion gap de terminationOrdered By: Alfred Baron on 10-15-2022 Anion gap [Moles/Vol] 10.4 mmol/L 6.0-15.0 [facility] Sodium [Moles/volume] in Ser um or PlasmaOrdered By: Alfred Baron on 10-15-2022 Sodium [Moles/Vol] 140 mmol/L 136-145 [facility] Thyrotropin [Units/volume] i n Serum or PlasmaOrdered By: Alfred Baron on 10-15-2022 TSH Qn 1.66 m[IU]/L 0.45-5.33 [facility] Urea nitrogen [Mass/volume] in Serum or PlasmaOrdered By: Alfred Baron on 10-15-2022 Urea nitrogen [Mass/Vol] 19 mg/dL 7-25 [facility] Office Visit (Cardiology)on 07-15-2022 Follow-up visit Diagnoses/Problems Assessed CAD (coronary artery disease) (414.00) (I25.10) H/O non-ST elevation myocardial infarction (NSTEMI) (412) (I25.2) S/P PTCA (percutaneous transluminal coronary angioplasty) (V45.82) (Z98.61) High risk medication use (V58.69) (Z79.899) Anticoagulated (V58.61) (Z79.01) Mixed hyperlipidemia (272.2) (E78.2) Paroxysmal atrial fibrillation (427.31) (I48.0) Former smoker (V15.82) (Z87.891) quit [address] [place] [address] Overweight with body mass index (BMI) of [...] cardiovascular complaints. He status post non-ST elevation AR May 2021, with a history of ASHD and prior three-vessel PCI in [place]. 1 of those events was for an inferior AR with revascularization of the RCA. Patient is notably severely allergic to Plavix and Effient. He has no history of stroke or bleeding disorder cancer peripheral vascular disease Has had mild paroxysmal atrial fibrillation, successfully treated with low-dose amiodarone, Eliquis with no bleeding or thromboembolic events recurrence of A. fib Today's ECG reveals sinus bradycardia with a IL interval 266, QT corrected interval 457, and evidence of Q waves inferior AR indeterminate age. Heart catheterization in May 2021 performed by myself revealed patent LAD and circumflex stents, first OM branch was occluded and treated conservatively. Is otherwise doing well without any angina or recurrent A. fib He is asking about coming off of Eliquis and because of his elevated [id number] score I recommended he stay on Eliquis [...] Signs Recorded: 15Jul2022 10:06AM Heart Rate50, Apical Agsmvkxt915, LUE, Sitting Banuuxtgl01, LUE, Sitting Height5 ft 9 in Khkrem578 lb BMI Qhplnacqkt91.94 kg/m2 BSA Calculated2.05 Tobacco Useb) No PHQ-2 #1. Over the (more content not included)... Normal [employer] Tobacco Screening.on 023 Adult depression screening assessment No [facility] [employer] denis 250 DO Work Phone: [phone] Fall risk assessment b) One or more fall s in the last year [facility] [employer] denis Crandall DO Work Phone: [phone] Tobacco use status CPHS b) No M -[facility] [employer] denis 250 DO Work Phone: [phone] Creatinine and Glomerular fi ltration rate.predicted panel (S/P/Bld)Ordered By: Alfred Baron on 07-12-2022 Creatinine [Mass/Vol] 1.02 mg/dL 0.64-1.27 [facility] Estimated glomerular filtrat ion rate (GFR) non- AmericanOrdered By: Alfred Baron on 07-12-2022 GFR/1.73 sq M.predicted among non-blacks MDRD (S/P/Bld) [Vol rate/Area] > 60 mL/Min [facility] No Panel InformationOrdered By: Alfred Baron on 07-12-2022 Estimated GFR () > 60 mL/Min [facility] Comment on above: GFR estimated refere nce range: According to KDOQI guidelines, <60 ml/min/1.73m2 is sufficient to diagnose a patient with chronic kidney disease. Pharmacy Creatinine Clearance (Chem N/A [facility] No Panel Informationon 07-12 10.7\S\10.7 Normal 6.0-15.0 [facility] [employer] denis 250 DO Work Phone: 9.0\S\9.0 Normal 8.2-10.2 [facility] [employer] 250 DO Work Phone: [phone] 26.7\S\26.7 Normal 22.0-30.0 [facility] [employer] denis 250 DO Work Phone: [phone] 106\S\106 Normal 95-114 [facility] [employer] denis [employer] DO Work Phone: 4.4\S\4.4 Normal 3.5-5.1 [facility] Michael barrios 250 DO Work Phone: 139\S\139 Normal 136-146 [facility] Michael Crandall DO Work Phone: [phone] > 60 Normal [facility] Michael Crandall DO Work Phone: [phone] Comment on above: GFR estimated refere nce range: According to KDOQI guidelines, <60 ml/min/1.73m2 is sufficient to diagnose a patient with chronic kidney disease. 1.02\S\1.02 Normal 0.64-1.27 [facility] Michael Crandall DO Work Phone: [phone] 18\S\18 Normal 9-23 [facility] Michael Crandall DO Work Phone: [phone] 86\S\86 Normal 70-100 [facility] RosaCarmen Crandall DO Work Phone: Comment on above: Random Glucose Refer ence Range is dependent on time and content of last meal. Glucose of more than 200 mg/dL in a nonstressed, ambulatory subject supports the diagnosis of Diabetes Mellitus. ADA recommended reference range 22\S\22 Normal 10-42 [facility] Crandall [facility] Work Phone: [phone] 1.82\S\1.82 Normal 0.45-5.33 [facility] Michael Crandall DO Work Phone: Comment on above: PERFORMED BY:[address] [place] [address] [address] [place], [place] [phone] MEDICAL DIRECTORGABINO ARCOS M.D. Radiologyon 07-12-2022 XR Chest 2 Views Normal [facility] Cr[facility]all [facility] Work Phone: Serum or plasma anion gap de terminationOrdered By: Alfred Baron on 07-12-2022 Anion gap [Moles/Vol] 10.7 mmol/L 6.0-15.0 [facility] Serum or plasma aspartate am inotransferase measurement (enzymatic activity/volume)Ordered By: Alfred Baron on 07-12-2022 AST [Catalytic activity/Vol] 22 U/L 10-42 [facility] Serum or plasma calcium sean urement (mass/volume)Ordered By: Alfred Baron on 07-12-2022 Calcium [Mass/Vol] 9.0 mg/dL 8.2-10.2 [facility] Serum or plasma chloride nicolasa surement (moles/volume)Ordered By: Alfred Baron on 07-12-2022 Chloride [Moles/Vol] 106 mmol/L 95-114 [facility] Serum or plasma glucose sean urement (mass/volume)Ordered By: Alfred Baron on 07-12-2022 Glucose [Mass/Vol] 86 mg/dL 70-100 [facility] Comment on above: ADA recommended refe rence rangeRandom Glucose Reference Range is dependent on time and content of last meal. Glucose of more than 200 mg/dL in a nonstressed, ambulatory subject supports the diagnosis of Diabetes Mellitus. Serum or plasma potassium me asurement (moles/volume)Ordered By: Alfred Baron on 07-12-2022 Potassium [Moles/Vol] 4.4 mmol/L 3.5-5.1 [facility] Serum or plasma sodium measu rement (moles/volume)Ordered By: Alfred Baron on 07-12-2022 Sodium [Moles/Vol] 139 mmol/L 136-146 [facility] Serum or plasma total carbon dioxide measurement (moles/volume)Ordered By: Alfred Baron on 07-12-2022 CO2 [Moles/Vol] 26.7 mmol/L 22.0-30.0 [facility] Serum or plasma urea nitroge n measurement (mass/volume)Ordered By: Alfred Baron on 07-12-2022 Urea nitrogen [Mass/Vol] 18 mg/dL 9-23 [facility] TSH DL <= 0.005 mIU/L QnOrde red By: Alfred Baron on 07-12-2022 TSH Qn 1.82 m[IU]/L 0.45-5.33 [facility] Covid-19 PCR (CVDTBH)on 05-28 SARS-CoV-2 (COVID-19) RNA LO+probe Ql (Unsp spec) Not detected Normal NOT DETECTED [facility] Comment on above: Result Comment: This test is not yet approved or cleared by the [place] FDA. When there are no FDA-approved or cleared tests available, and other criteria are met, FDA can make tests available under an emergency access mechanism called an Emergency Use Authorization (EUA). The EUA for this test is supported by the [place] of Health and Human Service's (HHS's) declaration [...] SARS-CoV-2. Performed By: #### C VDTBH #### [facility] [address] [place] [address] Dr. Steve Sevilla INFLUENZA A AND B AGon 06-15 INFLUBNEGH SEE BELOW Normal [facility] Comment on above: Result Comment: Nega tive for Flu B protein antigen. Infection due to Flu B cannot be ruled out. Flu B antigen in the sample may be below the detection limit of the test. Performed By: #### C VDTBH #### [facility] [address] [place] [address] Dr. Steve Sevilla INFLUENZA A AG Positive Abnormal NEGATIVE SEE COMMENT [facility] Comment on above: Performed By: #### C VDTBH #### [facility] [address] [address] [address] Steve Sevilla INFLUENZA B AG Negative Normal NEGATIVE SEE COMMENT [facility] Comment on above: Performed By: #### C VDTBH #### [facility] [address] [place] [address] Dr. Steve Sevilla INFLUPOSH SEE BELOW Normal [facility] Comment on above: Result Comment: NOTE : Live attenuated influenzae vaccine viruses can cause a positive result for a rapid influenza diagnostic test if administered up to 7 days prior to rapid testing. Performed By: #### C VDTBH #### [facility] [address] [place] [address] Dr. Steve Sevilla INTERNAL CONTROLS Within Normal Limits Normal Wi thin Normal Limits [facility] Comment on above: Performed By: #### C VDTBH #### [facility] [address] [place] [address] Dr. Steve Sevilla CBC AUTO DIFFon 04-20-2022 BASO # 0.0 103/ul Normal 0.0-0.1 [facility] Comment on above: Performed By: #### C BC #### [facility] [address] [place] [address] Dr. Steve Sevilla Basophils/100 WBC (Bld) 0.4 % Normal 0.2-2.0 [facility] Comment on above: Performed By: #### C BC #### [facility] [address] [place] [address] Dr. Steve Sevilla EO # 0.1 103/ul Normal 0.0-0.7 [facility] Comment on above: Performed By: #### C BC #### [facility] [address] [place] [address] Dr. Steve Sevilla Eosinophils/100 WBC (Bld) 1.5 % Normal 0.9-7.0 [facility] Comment on above: Performed By: #### C BC #### [facility] [address] [place] [address] Dr. Steve Sevilla Erythrocyte distribution width (RBC) [Ratio] 16.5 % Critically high 11.0-15.0 [facility] Comment on above: Performed By: #### C BC #### [facility] [address] [place] [address] Dr. Steve Sevilla Hematocrit (Bld) [Volume fraction] 43.1 % Normal 42.0-54.0 [facility] Comment on above: Performed By: #### C BC #### [facility] [address] [place] [address] Dr. Steve Sevilla Hemoglobin (Bld) [Mass/Vol] 13.3 g/dL Critically low 14.0-18.0 [facility] Comment on above: Performed By: #### C BC #### [facility] [address] [place] [address] Dr. Steve Sevilla IG # 0.02 10e3/ul Normal 0.00-0.03 [facility] Comment on above: Performed By: #### C BC #### [facility] [address] [place] [address] Dr. Steve Sevilla IG % 0.2 % Normal 0.0-0.5 [facility] Comment on above: Performed By: #### C BC #### [facility] [address] [place] [address] Dr. Steve Sevilla LYMPH # 2.6 103/ul Normal 1.2-3.8 [facility] Comment on above: Performed By: #### C BC #### [facility] [address] [place] [address] Dr. Steve Sevilla Lymphocytes/100 WBC (Bld) 27.8 % Normal 20.5-60.0 [facility] Comment on above: Performed By: #### C BC #### [facility] [address] [place] [address] Dr. Steve Sevilla MANUAL DIFF REQ NO Normal [facility] Comment on above: Performed By: #### C BC #### [facility] [address] [place] [address] Dr. Steve Sevilla MCH (RBC) [Entitic mass] 27.3 pg Normal 25.9-34.0 [facility] Comment on above: Performed By: #### C BC #### [facility] [address] [place] [address] Dr. Steve Sevilla MCHC (RBC) [Mass/Vol] 30.9 g/dL Normal 29.9-35.2 [facility] Comment on above: Performed By: #### C BC #### [facility] [address] [place] [address] Dr. Steve Sevilla MCV (RBC) [Entitic vol] 88.3 fL Normal 80.0-94.0 [facility] Comment on above: Performed By: #### C BC #### [facility] [address] [address] [address] Steve Sevilla MONO # 1.5 103/ul Critically high 0.3-0.8 [facility] Comment on above: Performed By: #### C BC #### [facility] [address] [address] [address] Steve Sevilla Monocytes/100 WBC (Bld) 15.8 % Critically high 1.7-12. 0 [facility] Comment on above: Performed By: #### C BC #### [facility] [address] [place] [address] Dr. Steve Sevilla NEUT # 5.0 103/ul Normal 1.4-6.5 [facility] Comment on above: Performed By: #### C BC #### [facility] [address] [place] [address] Dr. Steve Sevilla Neutrophils/100 WBC (Bld) 54.3 % Normal 43.0-75.0 [facility] Comment on above: Performed By: #### C BC #### [facility] [address] [place] [address] Dr. Steve Sevilla Platelet mean volume (Bld) [Entitic vol] 9.2 fL Critically low 9.5-13.5 [facility] Comment on above: Performed By: #### C BC #### [facility] [address] [place] [address] Dr. Steve Sevilla PLT 239 103/ul Normal 150-450 [facility] Comment on above: Performed By: #### C BC #### [facility] [address] [place] [address] Dr. Steve Sevilla RBC 4.88 106/ul Normal 4.70-6.10 [facility] Comment on above: Performed By: #### C BC #### [facility] [address] [place] [address] Dr. Steve Sevilla WBC 9.3 103/ul Normal 4.0-11.0 [facility] Comment on above: Performed By: #### C BC #### [facility] [address] [address] [address] Steve Sevilla Cov[facility]-19 PCR [facility]on 03[facility]27 SARS-CoV-2 (COVID-19) RNA LO+probe Ql (Unsp spec) Not detected Normal NOT DETECTED [facility] Comment on above: Result Comment: This test is not yet approved or cleared by the [place] FDA. When there are no FDA-approved or cleared tests available, and other criteria are met, FDA can make tests available under an emergency access mechanism called an Emergency Use Authorization (EUA). The EUA for this test is supported by the [employer] of Health and Human Service's (HHS's) declaration [...] consistent with SARS-CoV-2. Performed By: #### C VDTB #### [facility] [address] [place], [place] [address] Dr. Steve Sevilla Creatinine and Glomerular fi ltration rate.predicted panel (S/P/Bld)Ordered By: Alfred Baron on 03-24-2022 Creatinine [Mass/Vol] 1.17 mg/dL 0.64-1.27 [facility] Estimated glomerular filtrat ion rate (GFR) non- AmericanOrdered By: Alfred Baron on 03-24-2022 GFR/1.73 sq M.predicted among non-blacks MDRD (S/P/Bld) [Vol rate/Area] 60 mL/Min [facility] No Panel InformationOrdered By: Alfred Baron on 03-24-2022 Estimated GFR () > 60 mL/Min [facility] Comment on above: GFR estimated refere nce range: According to KDOQI guidelines, <60 ml/min/1.73m2 is sufficient to diagnose a patient with chronic kidney disease. Pharmacy Creatinine Clearance (Chem N/A [facility] Serum or plasma anion gap de terminationOrdered By: Alfred Baron on 03-24-2022 Anion gap [Moles/Vol] 13.5 mmol/L 6.0-15.0 [facility] Serum or plasma aspartate am inotransferase measurement (enzymatic activity/volume)Ordered By: Alfred Baron on 03-24-2022 AST [Catalytic activity/Vol] 19 U/L 10-42 [facility] Serum or plasma calcium sean urement (mass/volume)Ordered By: Alfred Baron on 03-24-2022 Calcium [Mass/Vol] 8.7 mg/dL 8.2-10.2 [facility] Serum or plasma chloride nicolasa surement (moles/volume)Ordered By: Alfred Baron on 03-24-2022 Chloride [Moles/Vol] 100 mmol/L 95-114 [facility] Serum or plasma glucose sean urement (mass/volume)Ordered By: Alfred Baron on 03-24-2022 Glucose [Mass/Vol] 147 mg/dL 70-100 [facility] Comment on above: ADA recommended refe rence rangeRandom Glucose Reference Range is dependent on time and content of last meal. Glucose of more than 200 mg/dL in a nonstressed, ambulatory subject supports the diagnosis of Diabetes Mellitus. Serum or plasma potassium me asurement (moles/volume)Ordered By: Alfred Baron on 03-24-2022 Potassium [Moles/Vol] 4.2 mmol/L 3.5-5.1 [facility] Serum or plasma sodium measu rement (moles/volume)Ordered By: Alfred Baron on 03-24-2022 Sodium [Moles/Vol] 138 mmol/L 136-146 [facility] Serum or plasma total carbon dioxide measurement (moles/volume)Ordered By: Alfred Baron on 03-24-2022 CO2 [Moles/Vol] 28.7 mmol/L 22.0-30.0 [facility] Serum or plasma urea nitroge n measurement (mass/volume)Ordered By: Alfred Baron on 03-24-2022 Urea nitrogen [Mass/Vol] 17 mg/dL 9- [facility] TSH DL <= 0.005 mIU/L QnOrde red By: Alfred Baron on 03-24-2022 TSH Qn 2.20 m[IU]/L 0.45-5.33 [facility] MRI LSPINE WO CONon 01-09-20 MRI [...] KIKA CHO Date: 2022-01-07 22:16 Normal [facility] Tobacco Screening.on 022 Fall risk assessment a) No falls within the last year [facility] [address] DO Work Phone: Tobacco use status CPHS b) No M -[facility] [employer] [place] [address] DO Work Phone: [phone] XR LSPINE MIN 4 VIEWSon 07- XR [...] by: LYNDA BYNUM Date: 2021-12-30 12:12 Normal [facility] Tobacco Screening.on Fall risk assessment a) No falls within the last year [facility] [employer] [address] DO Work Phone: [phone] Tobacco use status CPHS b) No M [facility] [employer] [place] [address] DO Work Phone: [phone] Tobacco Screening.on Adult depression screening assessment No [facility] [employer] [address] DO Work Phone: [phone] Tobacco use status CP b) No M [facility] [employer] [place] [address] DO Work Phone: [phone] PHQ-2 [facility] 09-02-2021 Adult depression screening assessment No [facility] [employer] [place] [address] DO Work Phone: [phone] Tobacco Screening.on Fall risk assessment a) No falls within the last year [facility] [employer] [place] [address] DO Work Phone: [phone] Tobacco use status CPHS b) No M -[facility] [employer] [place] [address] DO Work Phone: [phone] Tobacco Screening.on Fall risk assessment a) No falls within the last year [facility] [employer] [place] [address] DO Work Phone: [phone] Tobacco use status CPHS b) No M P-[facility] [address] DO Work Phone: BASIC METABOLIC PANELon 04-27 Calcium mass conc 8.5 mg/dL Low 8.6-10.3 [facility] Comment on above: Order Comment: No: D o not add to previous draw Performed By: #### 3 0, [id number] ####[facility] [place] [address], [place] Chloride molar conc 107 mmol/L Normal 98-107 [facility] Comment on above: Order Comment: No: D o not add to previous draw Performed By: #### 3 5199, [id number] ####[facility] [place] [address], [place] CO2 molar conc 29 mmol/L Normal 21-31 [facility] Comment on above: Order Comment: No: D o not add to previous draw Performed By: #### 3 5199, 51149 ####[facility] [place] [address], [place] Creatinine mass conc 0.89 mg/dL Normal 0.70-1.30 [facility] Comment on above: Order Comment: No: D o not add to previous draw Performed By: #### 3 5199, 15013 ####[facility] [place] [address], [place] GFR/1.73 sq M predicted among blacks MDRD vol rate/area (S/P/Bld) mL/min/{1.73_m2} Normal >60 [facility] Comment on above: Order Comment: No: D o not add to previous draw Result Comment: Calc ulation may not be valid for patients over 70 years Performed By: #### 3 5199, 56194 ####[facility] [place] [address], [place] GFR/1.73 sq M predicted among non-blacks MDRD vol rate/area (S/P/Bld) mL/min/{1.73_m2} Normal >60 [facility] Comment on above: Order Comment: No: D o not add to previous draw Result Comment: Calc ulation may not be valid for patients over 70 years Performed By: #### 3 0, 45778 ####[facility] [place] [address], [facility] Glucose mass conc 95 mg/dL Normal 70-100 [facility] Comment on above: Order Comment: No: D o not add to previous draw Performed By: #### 3 5199, 53312 ####[facility] [place] [address], [facility] Potassium molar conc 3.8 mmol/L Normal 3.5-5.1 [facility] Comment on above: Order Comment: No: D o not add to previous draw Performed By: #### 3 5199, 18378 ####[facility] [place] [address], [place] Sodium molar conc 141 mmol/L Normal 136-145 [facility] Comment on above: Order Comment: No: D o not add to previous draw Performed By: #### 3 5199, 17228 ####[facility] [place] [address], [facility] Urea nitrogen mass conc 19 mg/dL Normal 7-25 [facility] Comment on above: Order Comment: No: D o not add to previous draw Performed By: #### 3 5199, 93548 ####[facility] [place] [address], [place] CBC COMPLETE BLOOD COUNTon 07-10-2017 Erythrocyte distribution width Auto Ratio (RBC) 13.2 % Normal 11.5-15.0 [facility] Comment on above: Order Comment: No: D o not add to previous draw Performed By: #### 5 0608 ####[facility] [place] [address], [place] Hematocrit Auto Volume Fraction (Bld) 44.5 % Normal 39.0-50.0 [facility] Comment on above: Order Comment: No: D o not add to previous draw Performed By: #### 5 0608 ####[facility] [facility] Hemoglobin mass conc (Bld) 15.0 g/dL Normal 13.0-17.0 [facility] Comment on above: Order Comment: No: D o not add to previous draw Performed By: #### 5 0608 ####[facility] [facility].[address] MCH Auto Entitic mass (RBC) 31.1 pg Normal 27.0-33.0 [facility] Comment on above: Order Comment: No: D o not add to previous draw Performed By: #### 5 0608 ####[facility] [facility] MCHC Auto mass conc (RBC) 33.7 g/dL Normal 32.0-35.0 [facility] Comment on above: Order Comment: No: D o not add to previous draw Performed By: #### 5 0608 ####[facility] [place] [address].[address] MCV Auto Entitic volume (RBC) 92.1 fL Normal 82.0-98.0 [facility] Comment on above: Order Comment: No: D o not add to previous draw Performed By: #### 5 0608 ####[facility] [facility].[address] Nucleated RBC/100 WBC Ratio (Bld) 0 % Normal 0-0 [facility] Comment on above: Order Comment: No: D o not add to previous draw Performed By: #### 5 0608 ####[address] PLAT CNT 179 10*3/uL Normal 150-400 [facility] Comment on above: Order Comment: No: D o not add to previous draw Performed By: #### 5 0608 ####[facility] [facility].[address] RBC Auto #/vol (Bld) 4.83 10*6/uL Normal 4.20-5.70 [facility] Comment on above: Order Comment: No: D o not add to previous draw Performed By: #### 5 0608 ####[facility] WBC Auto #/vol (Bld) 7.52 10*3/uL Normal 4.00-10.60 [facility] Comment on above: Order Comment: No: D o not add to previous draw Performed By: #### 5 0608 ####[facility] [facility].[address] History and Physicalon 05-10 History and Physical [id number]ner Admitted: 05/09/2018 Date of : 1940 Attending Physician: Niki Ross MD Room #: [id number] Discharge Date: HISTORY AND PHYSICALHISTORY OF PRESENT ILLNESS: The patient is a 77-year-old [facility] and there was concern for unstable [...] had a brother in the 40s with AR.REVIEW OF SYSTEMS: Again, mostly the 2 things [...] depressedor suicidal. SKIN: Intact.LABORATORY DATA: Again at [facility], the patient had EKG, whichshowed sinus rhythm. [...] 05/09/2018/09:16 P/Niki Ross MDDate Trans: 05/10/2018 05:14 [id number] Normal [facility] TROPONIN-Ion 05-10-2018 Troponin I.cardiac mass conc 0.01 ng/mL Normal 0.00-0.04 [facility] Comment on above: Order Comment: No: D o not add to previous draw Result Comment: REFE RENCE RANGES: 0.00 - 0.04 ng/ml NORMAL 0.05 - 0.50 ng/ml INDETERMINATE > 0.50 ng/ml CONSISTENT WITH AN M.I. Performed By: #### 3 4090, 43271 ####[facility] [facility] [address], [facility] Troponin I.cardiac mass conc 0.01 ng/mL Normal 0.00-0.04 [facility] Comment on above: Order Comment: No: D o not add to previous draw Result Comment: REFE RENCE RANGES: 0.00 - 0.04 ng/ml NORMAL 0.05 - 0.50 ng/ml INDETERMINATE > 0.50 ng/ml CONSISTENT WITH AN M.I. Performed By: #### 3 5200 ####[facility] [facility].[address] TROPONIN-Ion 05-09-2018 Troponin I.cardiac mass conc 0.00 ng/mL Normal 0.00-0.04 [facility] Comment on above: Order Comment: No: D o not add to previous draw Result Comment: REFE RENCE RANGES: 0.00 - 0.14 ng/ml NEGATIVE 0.15 - 0.25 ng/ml INDETERMINATE > 0.25 ng/ml INDICATIVE OF AN M.I. Performed By: #### 3 5200 ####[facility] Vital Signs Date Time Vital Sign Value Performing Clinician Facility 09-19-2024 09:05-0400 Body height 175.26 cm Irving Ball DO Work Phone: [facility] 09-19-2024 09:05-0400 Body mass index (BMI) [Ratio] 28.8 kg/m2 Irving Ball DO Work Phone: [facility] 09-19-2024 09:05-0400 Body weight 88.56 kg Irving Ball DO Work Phone: [facility] 09-19-2024 09:05-0400 Diastolic blood pressure 75 mm[Hg] Irving Ball DO Work Phone: [facility] 09-19-2024 09:05-0400 Heart rate 53 /min Irving Ball DO Work Phone: [facility] 09-19-2024 09:05-0400 Respiratory rate 12 /min Irving Ball DO Work Phone: [facility] 09-19-2024 09:05-0400 Systolic blood pressure 131 mm[Hg] Irving Ball DO Work Phone: [facility] 08-29-2024 14:39-0500 Body height 175.3 cm Trenton Murcek DO Work Phone: [facility] 08-29-2024 14:39-0500 Body mass index (BMI) [Ratio] 29.24 kg/m2 Irving Murcek DO Work Phone: [facility] 08-29-2024 14:39-0500 Body weight 89.81 kg Irving Goodcek DO Work Phone: [facility] 08-01-2024 14:07-0500 Body height 175.3 cm Irving Murcek DO Work Phone: [facility] 08-01-2024 14:07-0500 Body mass index (BMI) [Ratio] 29.24 kg/m2 Irving Murcek DO Work Phone: [facility] 08-01-2024 14:07-0500 Body weight 89.81 kg Irving Goodcek DO Work Phone: [facility] 07-24-2024 14:15-0500 Body mass index (BMI) [Ratio] [...] 07-23-2024 13:06-0500 Body height 175.3 cm Irving Goodcek DO Work Phone: [facility] 07-23-2024 13:06-0500 Body mass index (BMI) [Ratio] 29.24 kg/m2 Irving Goodcek DO Work Phone: [facility] 07-23-2024 13:06-0500 Body weight 89.81 kg Irving Fonseca DO Work Phone: [facility] 07-19-2024 14:07-0500 Diastolic blood pressure 88 mm[Hg] Pedro Wagner MD Work Phone: [facility] 07-19-2024 14:07-0500 Systolic blood pressure 136 mm[Hg] Pedro Wagner MD Work Phone: [facility] 07-19-2024 11:35-0500 Body height 175.26 cm [facility] 07-19-2024 11:35-0500 Body mass index (BMI) [Ratio] 28.8 kg/m2 [facility] 07-19-2024 11:35-0500 Body weight 88.56 kg [facility] 07-19-2024 11:35-0500 Diastolic blood pressure 86 mm[Hg] [facility] 07-19-2024 11:35-0500 Heart rate 62 /min [facility] 07-19-2024 11:35-0500 Respiratory rate 12 /min [facility] 07-19-2024 11:35-0500 Systolic blood pressure 126 mm[Hg] [facility] 07-10-2024 14:07-0500 Body height 175.26 cm [facility] 07-10-2024 14:07-0500 Body mass index (BMI) [Ratio] 29.1 kg/m2 [facility] 07-10-2024 14:07-0500 Body weight 89.58 kg [facility] 07-10-2024 14:07-0500 Diastolic blood pressure 77 mm[Hg] [facility] 07-10-2024 14:07-0500 Heart rate 59 /min [facility] 07-10-2024 14:07-0500 Respiratory rate 12 /min [facility] 07-10-2024 14:07-0500 Systolic blood pressure 153 mm[Hg] [facility] 05-17-2024 08:31-0500 Body height 175.26 cm [facility] 05-17-2024 08:31-0500 Body mass index (BMI) [Ratio] 29.4 kg/m2 [facility] 05-17-2024 08:31-0500 Body weight 90.43 kg [facility] 05-17-2024 08:31-0500 Diastolic blood pressure 81 mm[Hg] [facility] 05-17-2024 08:31-0500 Heart rate 50 /min [facility] 05-17-2024 08:31-0500 Respiratory rate 12 /min [facility] 05-17-2024 08:31-0500 Systolic blood pressure 153 mm[Hg] [facility] 03-19-2024 11:28-0400 Body height 175.26 cm [facility] 03-19-2024 11:28-0400 Body mass index (BMI) [Ratio] 29 kg/m2 [facility] 03-19-2024 11:28-0400 Body weight 89.35 kg [facility] 03-19-2024 11:28-0400 Diastolic blood pressure 78 mm[Hg] [facility] 03-19-2024 11:28-0400 Heart rate 55 /min [facility] 03-19-2024 11:28-0400 SaO2% (BldA) [Mass fraction] 96 % [facility] 03-19-2024 11:28-0400 Systolic blood pressure 136 mm[Hg] [facility] 02-02-2024 11:24-0400 Body height 175.26 cm MD Miriam Juarez Work Phone: [facility] 02-02-2024 11:24-0400 Body mass index (BMI) [Ratio] 28.8 kg/m2 MD Miriam Juarez Work Phone: [facility] 02-02-2024 11:24-0400 Body weight 88.45 kg MD Miriam Juarez Work Phone: [facility] 01-02-2024 13:25-0400 Diastolic blood pressure 82 mm[Hg] [address] 01-02-2024 13:25-0400 Heart rate 49 /min [address] 01-02-2024 13:25-0400 Systolic blood pressure 122 mm[Hg] Radha 1 [facility] 12-28-2023 10:27-0400 Body height 175.3 cm Brendon [...] 175.26 cm DO Irving Ball Work Phone: [facility] 11-15-2023 11:30-0400 Body mass index (BMI) [Ratio] 29.2 kg/m2 DO Irving Ball Work Phone: [facility] 11-15-2023 11:30-0400 Body weight 89.81 kg DO Irving Ball Work Phone: [facility] 11-15-2023 11:30-0400 Diastolic blood pressure 73 mm[Hg] DO Irving Ball Work Phone: [facility] 11-15-2023 11:30-0400 Heart rate 56 /min DO Irving Ball Work Phone: [facility] 11-15-2023 11:30-0400 Respiratory rate 12 /min DO Irving Ball Work Phone: [facility] 11-15-2023 11:30-0400 Systolic blood pressure 125 mm[Hg] DO Irving Ball Work Phone: [facility] 10-26-2023 10:24-0400 Diastolic blood pressure 75 mm[Hg] DO Irving Ball Work Phone: [facility] 10-26-2023 10:24-0400 Heart rate 43 /min DO Irving Ball Work Phone: [facility] 10-26-2023 10:24-0400 Respiratory rate 18 /min DO Irving Ball Work Phone: [facility] 10-26-2023 10:24-0400 SaO2% (BldA) [Mass fraction] 96 % DO Irving Ball Work Phone: [facility] 10-26-2023 10:24-0400 Systolic blood pressure 131 mm[Hg] DO Irving Ball Work Phone: [facility] 10-26-2023 08:35-0400 Body height 175.26 cm DO Irving Ball Work Phone: [facility] 10-26-2023 08:35-0400 Body weight 89.35 kg DO Irving Ball Work Phone: [facility] 10-17-2023 14:27-0400 Body height 175.26 cm DO Irving Ball Work Phone: [facility] 10-17-2023 14:27-0400 Body mass index (BMI) [Ratio] 23.1 kg/m2 DO Irving Ball Work Phone: [facility] 10-17-2023 14:27-0400 Body weight 71 kg DO Irving Ball Work Phone: [facility] 09-23-2023 11:12-0400 Body height 175.26 cm DO Irving Ball Work Phone: [facility] 09-23-2023 11:12-0400 Body mass index (BMI) [Ratio] 29.5 kg/m2 DO Irving Ball Work Phone: [facility] 09-23-2023 11:12-0400 Body weight 90.71 kg DO Irving Ball Work Phone: [facility] 09-23-2023 11:12-0400 Diastolic blood pressure 75 mm[Hg] DO Irving Ball Work Phone: [facility] 09-23-2023 11:12-0400 Heart rate 53 /min DO Irving Ball Work Phone: [facility] 09-23-2023 11:12-0400 Respiratory rate 12 /min DO Irving Ball Work Phone: [facility] 09-23-2023 11:12-0400 Systolic blood pressure 165 mm[Hg] DO Irving Ball Work Phone: [facility] 09-14-2023 09:27-0400 Body height 175.26 cm DO Irving Ball Work Phone: [facility] 09-14-2023 09:27-0400 Body mass index (BMI) [Ratio] 30 kg/m2 DO Irving Ball Work Phone: [facility] 09-14-2023 09:27-0400 Body weight 92.24 kg DO Irving Ball Work Phone: [facility] 09-14-2023 09:27-0400 Diastolic blood pressure 75 mm[Hg] DO Irving Ball Work Phone: [facility] 09-14-2023 09:27-0400 Heart rate 67 /min DO Irving Ball Work Phone: [facility] 09-14-2023 09:27-0400 Respiratory rate 16 /min DO Irving Ball Work Phone: [facility] 09-14-2023 09:27-0400 Systolic blood pressure 134 mm[Hg] DO Irving Ball Work Phone: [facility] 08-04-2023 11:00-0500 Body height 175.26 cm Irving Ball Other [employer] Other 08-04-2023 11:00-0500 Body mass index (BMI) [Ratio] 29.89 kg/m2 Irving Ball Other [employer] Other 08-04-2023 11:00-0500 Body weight 91.81 kg Irving Ball Other [employer] Other 08-04-2023 11:00-0500 Diastolic blood pressure 53 mm[Hg] Irving Ball Other [employer] Other 08-04-2023 11:00-0500 Respiratory rate 12 /min Irving Ball Other [employer] Other 08-04-2023 11:00-0500 Systolic blood pressure 132 mm[Hg] Irving Ball Other [employer] Other 07-25-2023 13:04-0500 Body height 175.3 cm [...] Body height 175.26 cm Irving Ball Other [employer] Other 05-13-2023 11:15-0500 Body mass index (BMI) [Ratio] 29.15 kg/m2 Irving Ball Other [employer] Other 05-13-2023 11:15-0500 Body weight 89.54 kg Irving Ball Other [employer] Other 05-13-2023 11:15-0500 Diastolic blood pressure 62 mm[Hg] Irving Ball Other [employer] Other 05-13-2023 11:15-0500 Respiratory rate 12 /min Irving Ball Other [employer] Other 05-13-2023 11:15-0500 Systolic blood pressure 114 mm[Hg] Irving Ball Other [employer] Other 05-04-2023 11:30-0500 Body height 175.26 cm Irving Ball Other [employer] Other 05-04-2023 11:30-0500 Body mass index (BMI) [Ratio] 29.12 kg/m2 Irving Ball Other [employer] Other 05-04-2023 11:30-0500 Body weight 89.45 kg Irving Ball Other [employer] Other 05-04-2023 11:30-0500 Diastolic blood pressure 65 mm[Hg] Irving Ball Other [employer] Other 05-04-2023 11:30-0500 Respiratory rate 12 /min Irving Ball Other [employer] Other 05-04-2023 11:30-0500 Systolic blood pressure 124 mm[Hg] Irving Ball Other [facility] [employer] Other 04-21-2023 11:11-0400 Diastolic blood pressure 70 mm[Hg] DO Irving Ball Work Phone: [facility] 04-21-2023 11:11-0400 Heart rate 51 /min DO Irving Ball Work Phone: [facility] 04-21-2023 11:11-0400 Respiratory rate 16 /min DO Irving Ball Work Phone: [facility] 04-21-2023 11:11-0400 SaO2% (BldA) [Mass fraction] 95 % DO Irving Ball Work Phone: [facility] 04-21-2023 11:11-0400 Systolic blood pressure 133 mm[Hg] DO Irving Ball Work Phone: [facility] 04-21-2023 08:03-0400 Body height 175.26 cm DO Irving Ball Work Phone: [facility] 04-21-2023 08:03-0400 Body temperature 98.2 [degF] DO Irving Ball Work Phone: [facility] 04-21-2023 08:03-0400 Body weight 86.18 kg DO Irving Ball Work Phone: [facility] 03-01-2023 15:30-0400 Body height 175.26 cm Markell Hines Other [employer] Other 03-01-2023 15:30-0400 Body mass index (BMI) [Ratio] 28.94 kg/m2 Markell Hines Other [employer] Other 03-01-2023 15:30-0400 Body weight 88.91 kg Markell Hines Other [employer] Other 03-01-2023 15:30-0400 Diastolic blood pressure 78 mm[Hg] Markell Hines Other [employer] Other 03-01-2023 15:30-0400 Systolic blood pressure 130 mm[Hg] Markell Hines Other [employer] Other 02-01-2023 11:30-0400 Body height 175.26 cm Irving Ball Other [employer] Other 02-01-2023 11:30-0400 Body mass index (BMI) [Ratio] 28.91 kg/m2 Irving Ball Other [employer] Other 02-01-2023 11:30-0400 Body weight 88.81 kg Irving Ball Other [employer] Other 02-01-2023 11:30-0400 Diastolic blood pressure 71 mm[Hg] Irving Ball Other [employer] Other 02-01-2023 11:30-0400 Respiratory rate 12 /min Irving Ball Other [employer] Other 02-01-2023 11:30-0400 Systolic blood pressure 126 mm[Hg] Irving Ball Other [employer] Other 01-03-2023 11:01-0400 Heart rate 46 /min Irving E Ball Work Phone: [facility] [employer] DO Work Phone: 01-03-2023 10:58-0400 Body height 175.26 cm Irving E Ball Work Phone: [facility] 250 DO Work Phone: 01-03-2023 10:58-0400 Body mass index (BMI) [Ratio] 29.24 kg/m2 Irving E Ball Work Phone: [facility] [employer] DO Work Phone: 01-03-2023 10:58-0400 Body surface area Derived from formula 2.06 m2 Irving E Ball Work Phone: [facility] [employer] DO Work Phone: 01-03-2023 10:58-0400 Body weight 89.81 kg Irving Floyd Ball Work Phone: [facility] [employer] 250 DO Work Phone: 01-03-2023 10:58-0400 Diastolic blood pressure 80 mm[Hg] Irving Floyd Ball Work Phone: [facility] [employer] DO Work Phone: 01-03-2023 10:58-0400 Systolic blood pressure 150 mm[Hg] Irving Floyd Ball Work Phone: [facility] [employer] DO Work Phone: 12-08-2022 11:55-0400 Diastolic blood pressure 66 mm[Hg] Irving Floyd Ball Work Phone: [facility] [employer] DO Work Phone: 12-08-2022 11:55-0400 Heart rate 52 /min Irving Floyd Ball Work Phone: [facility] [employer] DO Work Phone: 12-08-2022 11:55-0400 Systolic blood pressure 124 mm[Hg] Irving Floyd Ball Work Phone: [facility] [employer] DO Work Phone: 12-08-2022 11:54-0400 Body height 175.26 cm Irving E Ball Work Phone: [facility] [employer] DO Work Phone: 12-08-2022 11:54-0400 Body mass index (BMI) [Ratio] 29.24 kg/m2 Irving Floyd Ball Work Phone: [facility] [employer] DO Work Phone: 12-08-2022 11:54-0400 Body surface area Derived from formula 2.06 m2 Irving E Ball Work Phone: [facility] 250 DO Work Phone: 12-08-2022 11:54-0400 Body weight 89.81 kg Irving Floyd Ball Work Phone: [facility] [employer] DO Work Phone: 12-08-2022 11:54-0400 Diastolic blood pressure 70 mm[Hg] Irving Floyd Ball Work Phone: [facility] DO Work Phone: 12-08-2022 11:54-0400 Systolic blood pressure 130 mm[Hg] Irving Floyd Ball Work Phone: [facility] [employer] DO Work Phone: 11-29-2022 09:30-0400 Body height 175.26 cm Irving Floyd Ball Work Phone: [facility] [employer] DO Work Phone: 11-29-2022 09:30-0400 Body mass index (BMI) [Ratio] 29.09 kg/m2 Irving Floyd Ball Work Phone: [facility] 250 DO Work Phone: 11-29-2022 09:30-0400 Body surface area Derived from formula 2.05 m2 Irving Floyd Ball Work Phone: [facility] [employer] DO Work Phone: 11-29-2022 09:30-0400 Body weight 89.36 kg Irving Floyd Ball Work Phone: [facility] DO Work Phone: 11-29-2022 09:30-0400 Diastolic blood pressure 82 mm[Hg] Irving E Ball Work Phone: [facility] [employer] DO Work Phone: 11-29-2022 09:30-0400 Heart rate 44 /min Irving E Ball Work Phone: [facility] [employer] DO Work Phone: 11-29-2022 09:30-0400 Systolic blood pressure 142 mm[Hg] Irving E Ball Work Phone: [facility] [employer] DO Work Phone: 11-02-2022 12:30-0400 Body height 175.26 cm Irving Ball Other [employer] Other 11-02-2022 12:30-0400 Body mass index (BMI) [Ratio] 28.88 kg/m2 Irving Ball Other [facility] [employer] Other 11-02-2022 12:30-0400 Body weight 88.72 kg Irving Ball Other [employer] Other 11-02-2022 12:30-0400 Diastolic blood pressure 70 mm[Hg] Irving Ball Other [employer] Other 11-02-2022 12:30-0400 Respiratory rate 12 /min Irving Ball Other [employer] Other 11-02-2022 12:30-0400 Systolic blood pressure 148 mm[Hg] Irving Ball Other [employer] Other 10-28-2022 21:03-0400 Diastolic blood pressure 66 mm[Hg] DO Irving Ball Work Phone: [facility] 10-28-2022 21:03-0400 Heart rate 57 /min DO Irving Ball Work Phone: [facility] 10-28-2022 21:03-0400 Respiratory rate 16 /min DO Irving Ball Work Phone: [facility] 10-28-2022 21:03-0400 SaO2% (BldA) [Mass fraction] 96 % DO Irving Ball Work Phone: [facility] 10-28-2022 21:03-0400 Systolic blood pressure 135 mm[Hg] DO Irving Ball Work Phone: [facility] 10-28-2022 20:17-0400 Body height 175.26 cm DO Irving Ball Work Phone: [facility] 10-28-2022 20:17-0400 Body temperature 98.3 [degF] DO Irving Ball Work Phone: [facility] 10-28-2022 20:17-0400 Body weight 90.7 kg DO Irving Ball Work Phone: [facility] 10-26-2022 14:30-0400 Body height 175.26 cm Irving Ball Other [employer] Other 10-26-2022 14:30-0400 Body mass index (BMI) [Ratio] 29.32 kg/m2 Irving Ball Other [employer] Other 10-26-2022 14:30-0400 Body weight 90.08 kg Irving Ball Other [employer] Other 10-26-2022 14:30-0400 Diastolic blood pressure 80 mm[Hg] Irving Ball Other [employer] Other 10-26-2022 14:30-0400 Systolic blood pressure 147 mm[Hg] Irving Ball Other [employer] Other 10-01-2022 09:45-0400 Body height 175.26 cm Irving Ball Other [employer] Other 10-01-2022 09:45-0400 Body mass index (BMI) [Ratio] 29.41 kg/m2 Irving Ball Other [employer] Other 10-01-2022 09:45-0400 Body weight 90.36 kg Irving Ball Other [employer] Other 10-01-2022 09:45-0400 Diastolic blood pressure 74 mm[Hg] Irving Ball Other [employer] Other 10-01-2022 09:45-0400 Respiratory rate 12 /min Irving Ball Other [employer] Other 10-01-2022 09:45-0400 Systolic blood pressure 157 mm[Hg] Irving Ball Other [employer] Other 09-02-2022 11:30-0500 Body height 175.26 cm Irving Ball Other [employer] Other 09-02-2022 11:30-0500 Body mass index (BMI) [Ratio] 29.5 kg/m2 Irving Ball Other [employer] Other 09-02-2022 11:30-0500 Body weight 90.63 kg Irving Ball Other [employer] Other 09-02-2022 11:30-0500 Diastolic blood pressure 70 mm[Hg] Irving Ball Other [employer] Other 09-02-2022 11:30-0500 Respiratory rate 12 /min Irving Ball Other [employer] Other 09-02-2022 11:30-0500 Systolic blood pressure 112 mm[Hg] Irving Ball Other [employer] Other 08-18-2022 09:45-0500 Body height 175.26 cm Irivng Ball Other [employer] Other 08-18-2022 09:45-0500 Body mass index (BMI) [Ratio] 29.59 kg/m2 Irving Ball Other [employer] Other 08-18-2022 09:45-0500 Body weight 90.9 kg Irving Ball Other [employer] Other 08-18-2022 09:45-0500 Diastolic blood pressure 86 mm[Hg] Irving Ball Other [employer] Other 08-18-2022 09:45-0500 Respiratory rate 12 /min Irving Ball Other [employer] Other 08-18-2022 09:45-0500 Systolic blood pressure 142 mm[Hg] Irving Ball Other [employer] [facility] Other 07-15-2022 10:06-0500 Body height 175.26 cm Riving E Ball Work Phone: [employer] DO Work Phone: 07-15-2022 10:06-0500 Body mass index (BMI) [Ratio] 28.94 kg/m2 Irving E Ball Work Phone: [employer] DO Work Phone: 07-15-2022 10:06-0500 Body surface area Derived from formula 2.05 m2 Irving E Ball Work Phone: [employer] DO Work Phone: 07-15-2022 10:06-0500 Body weight 88.91 kg Irving E Ball Work Phone: [facility] DO Work Phone: 07-15-2022 10:06-0500 Diastolic blood pressure 78 mm[Hg] Irving E Ball Work Phone: [facility] DO Work Phone: 07-15-2022 10:06-0500 Heart rate 50 /min Irving Floyd Ball Work Phone: [facility] DO Work Phone: 07-15-2022 10:06-0500 Systolic blood pressure 118 mm[Hg] Irving Floyd Ball Work Phone: [facility] DO Work Phone: 01-05-2022 13:30-0400 Body height 175.26 cm Irving Floyd Ball Work Phone: [facility] 250 DO Work Phone: 01-05-2022 13:30-0400 Body mass index (BMI) [Ratio] 29.09 kg/m2 Irving Floyd Ball Work Phone: [facility] DO Work Phone: 01-05-2022 13:30-0400 Body surface area Derived from formula 2.05 m2 Irving Floyd Ball Work Phone: [facility] DO Work Phone: 01-05-2022 13:30-0400 Body weight 89.36 kg Irving Floyd Ball Work Phone: [facility] DO Work Phone: 01-05-2022 13:30-0400 Diastolic blood pressure 62 mm[Hg] Irving Floyd Ball Work Phone: [facility] DO Work Phone: 01-05-2022 13:30-0400 Heart rate 50 /min Irving Floyd Ball Work Phone: [facility] [employer] DO Work Phone: 01-05-2022 13:30-0400 Systolic blood pressure 120 mm[Hg] Irving E Ball Work Phone: [facility] [employer] DO Work Phone: 12-14-2021 12:42-0400 Body height 175.26 cm Irving Floyd Ball Work Phone: [facility] [employer] [employer] DO Work Phone: 12-14-2021 12:42-0400 Body mass index (BMI) [Ratio] 28.65 kg/m2 Irving Floyd Ball Work Phone: [facility] [employer] [employer] DO Work Phone: 12-14-2021 12:42-0400 Body surface area Derived from formula 2.04 m2 Irving Floyd Ball Work Phone: [facility] [employer] DO Work Phone: 12-14-2021 12:42-0400 Body weight 88 kg Irving Floyd Ball Work Phone: [facility] [employer] DO Work Phone: 12-14-2021 12:42-0400 Diastolic blood pressure 80 mm[Hg] Irving Floyd Ball Work Phone: [facility] [employer] DO Work Phone: 12-14-2021 12:42-0400 Heart rate 50 /min Irving Floyd Ball Work Phone: [facility] [employer] 250 DO Work Phone: 12-14-2021 12:42-0400 Systolic blood pressure 134 mm[Hg] Irving E Ball Work Phone: [facility] [employer] 250 DO Work Phone: 12-14-2021 08:42-0400 Body height 175.26 cm Irving E Ball Work Phone: [facility] DO Work Phone: 12-14-2021 08:42-0400 Body mass index (BMI) [Ratio] 28.65 kg/m2 Irving E Ball Work Phone: [facility] DO Work Phone: 12-14-2021 08:42-0400 Body surface area Derived from formula 2.04 m2 Irving E Ball Work Phone: [facility] DO Work Phone: 12-14-2021 08:42-0400 Body weight 88 kg Irving E Ball Work Phone: [facility] DO Work Phone: 12-14-2021 08:42-0400 Diastolic blood pressure 80 mm[Hg] Irving E Ball Work Phone: [facility] DO Work Phone: 12-14-2021 08:42-0400 Heart rate 49 /min Irving E Ball Work Phone: [facility] DO Work Phone: 12-14-2021 08:42-0400 Systolic blood pressure 154 mm[Hg] Irving E Ball Work Phone: [facility] DO Work Phone: 10-16-2021 14:16-0400 Body height 175.26 cm Irving E Ball Work Phone: [facility] DO Work Phone: 10-16-2021 14:16-0400 Body mass index (BMI) [Ratio] 29.54 kg/m2 Irving E Ball Work Phone: [facility] DO Work Phone: 10-16-2021 14:16-0400 Body surface area Derived from formula 2.07 m2 Irving E Ball Work Phone: [facility] DO Work Phone: 10-16-2021 14:16-0400 Body weight 90.72 kg Irving E Ball Work Phone: [facility] DO Work Phone: 10-16-2021 14:16-0400 Diastolic blood pressure 70 mm[Hg] Irving E Ball Work Phone: [facility] DO Work Phone: 10-16-2021 14:16-0400 Heart rate 59 /min Irving E Ball Work Phone: [facility] DO Work Phone: 10-16-2021 14:16-0400 Systolic blood pressure 134 mm[Hg] Irving E Ball Work Phone: [facility] DO Work Phone: 10-07-2021 09:36-0400 Body height 175.26 cm Irving E Ball Work Phone: [facility] DO Work Phone: 10-07-2021 09:36-0400 Body mass index (BMI) [Ratio] 28.86 kg/m2 Irving E Ball Work Phone: [facility] DO Work Phone: 10-07-2021 09:36-0400 Body surface area Derived from formula 2.05 m2 Irving E Ball Work Phone: [facility] DO Work Phone: 10-07-2021 09:36-0400 Body weight 88.63 kg Irving E Ball Work Phone: [facility] DO Work Phone: 10-07-2021 09:36-0400 Diastolic blood pressure 70 mm[Hg] Irving E Ball Work Phone: [facility] DO Work Phone: 10-07-2021 09:36-0400 Heart rate 68 /min Irving E Ball Work Phone: [facility] DO Work Phone: 10-07-2021 09:36-0400 Systolic blood pressure 136 mm[Hg] Irving E Ball Work Phone: [facility] DO Work Phone: 09-02-2021 09:57-0500 Body height 175.26 cm Irving E Ball Work Phone: [facility] DO Work Phone: 09-02-2021 09:57-0500 Body mass index (BMI) [Ratio] 29.39 kg/m2 Irving E Ball Work Phone: [facility] DO Work Phone: 09-02-2021 09:57-0500 Body surface area Derived from formula 2.06 m2 Irving E Ball Work Phone: [facility] DO Work Phone: 09-02-2021 09:57-0500 Body weight 90.27 kg Irving E Ball Work Phone: [facility] DO Work Phone: 09-02-2021 09:57-0500 Diastolic blood pressure 98 mm[Hg] Irving E Ball Work Phone: [facility] DO Work Phone: 09-02-2021 09:57-0500 Diastolic blood pressure 102 mm[Hg] Irving E Ball Work Phone: [facility] DO Work Phone: 09-02-2021 09:57-0500 Systolic blood pressure 180 mm[Hg] Irving Floyd Ball Work Phone: [facility] DO Work Phone: 09-02-2021 09:57-0500 Systolic blood pressure 172 mm[Hg] Irving Floyd Ball Work Phone: [facility] DO Work Phone: 09-02-2021 09:57-0500 Systolic blood pressure 152 mm[Hg] Irving Floyd Ball Work Phone: [facility] DO Work Phone: 09-02-2021 09:57-0500 66 1 Irving Floyd Ball Work Phone: [facility] DO Work Phone: Comment on above: [employer] 09-02-2021 09:57-0500 58 1 Irving Floyd Ball Work Phone: [facility] DO Work Phone: Comment on above: [employer] 07-01-2021 11:57-0500 Body height 175.26 cm Irving Floyd Ball Work Phone: [facility] DO Work Phone: 07-01-2021 11:57-0500 Body mass index (BMI) [Ratio] 28.8 kg/m2 Irving Floyd Ball Work Phone: [facility] DO Work Phone: 07-01-2021 11:57-0500 Body surface area Derived from formula 2.04 m2 Irving Floyd Ball Work Phone: [facility] DO Work Phone: 07-01-2021 11:57-0500 Body weight 88.45 kg Irving Floyd Ball Work Phone: [facility] 250 DO Work Phone: 07-01-2021 11:57-0500 Diastolic blood pressure 76 mm[Hg] Irving Canela Work Phone: [facility] DO Work Phone: 07-01-2021 11:57-0500 Heart rate 42 /min Irving Canela Work Phone: [facility] DO Work Phone: 07-01-2021 11:57-0500 Systolic blood pressure 145 mm[Hg] Irving Canela Work Phone: [facility] DO Work Phone: Encounters Encounter Date Encounter Type Care Provider Facility Start: 09-19-2024 End: 09-19-2024 ambulatory Irving Canela DO Work Phone: [facility] Work Phone: Start: 09-19-2024 End: 09-19-2024 Patient encounter procedure Irving Canela DO Work Phone: [facility] Work Phone: Start: 08-29-2024 End: 08-29-2024 Postop follow up visit related to original px Irving Simon Marian DO Work Phone: [facility] Comment on above: Mohs defect of neck (Primary Dx) Start: 08-29-2024 End: 08-29-2024 ambulatory IRVING Simon MARIAN Not Available Start: 08-29-2024 End: 08-29-2024 Bamboo flowsheet Irving Fonseca DO Work Phone: [facility] Start: 08-29-2024 End: 08-29-2024 Bamboo flowsheet Irving Fonseca DO Work Phone: [facility] Start: 08-28-2024 Non-patient / Non-visit Sukhjinder Canela DO Work Phone: [facility] Work Phone: Start: 08-28-2024 End: 08-28-2024 Patient encounter procedure Irving Canela DO Work Phone: [facility] Work Phone: Start: 08-28-2024 End: 08-28-2024 ambulatory Alfred Baron Facility:[facility] Start: 08-27-2024 End: 08-27-2024 Bamboo flowsheet Bashir Girard MD Work Phone: [facility] Start: 08-27-2024 End: 08-27-2024 Bamboo flowsliliana Girard MD Work Phone: [facility] Start: 08-27-2024 End: 08-27-2024 Office outpatient visit 15 minutes Bashir Girard MD Work Phone: [facility] Comment on above: Seborrheic keratosis (Primary Dx); Lentigines; Actinic keratosis; History of malignant melanoma of skin Start: 08-27-2024 End: 08-27-2024 ambulatory BASHIR GIRARD Not Available Start: 08-01-2024 End: 08-01-2024 Postop follow up visit related to original px Irving Fonseca DO Work Phone: [facility] Comment on above: Mohs defect of neck (Primary Dx) Start: 08-01-2024 End: 08-01-2024 Bamboo flowsheet Irving Fonseca DO Work Phone: [facility] Start: 08-01-2024 End: 08-01-2024 Bamboo flowsheet Irving Fonseca DO Work Phone: [facility] [place] Start: 08-01-2024 End: 08-01-2024 ambulatory IRVING FONSECA Not Available Start: 07-30-2024 Non-patient / Non-visit Sukhjinder Canela DO Work Phone: [facility] Work Phone: Start: 07-27-2024 Non-patient / Non-visit Benjam in Ball DO Work Phone: [facility] Work Phone: Start: 07-27-2024 Non-patient / Non-visit Benjam in Ball DO Work Phone: [facility] Work Phone: Start: 07-26-2024 Non-patient / Non-visit Benjam in Ball DO Work Phone: [facility] Work Phone: Start: 07-25-2024 End: 07-25-2024 ambulatory IRVING FONSECA Not Available Start: 07-24-2024 End: 07-24-2024 Office outpatient visit 25 minutes [facility] Work Phone: [facility] Comment on above: 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; Bradycardia; H/O non-ST elevation myocardial infarction (NSTEMI); S/P PTCA (percutaneous transluminal coronary angioplasty); High risk medication use; Paroxysmal atrial fibrillation (Multi); Mixed hyperlipidemia; Former smoker; BMI 29.0-29.9,adult Start: 07-24-2024 End: 07-24-2024 ambulatory [facility] Start: 07-23-2024 End: 07-23-2024 Bamboo flowsheet Irving Fonseca DO Work Phone: [place] [place] Start: 07-23-2024 End: 07-23-2024 Bamboo flowsheet Irving Fonseca DO Work Phone: [place] [place] Start: 07-23-2024 End: 07-23-2024 Office outpatient new 45 minutes Irving Fonseca DO Work Phone: [place] [place] Comment on above: Mohs defect of neck Start: 07-23-2024 End: 07-23-2024 ambulatory IRVING Simon MARIAN Not Available Start: 07-19-2024 End: 07-19-2024 ambulatory PEDRO WAGNER Not Available Start: 07-19-2024 End: 07-19-2024 Patient encounter procedure Pedro Wagner MD Work Phone: [facility] Comment on above: Basal cell carcinoma of skin of scalp and neck (Primary Dx) Start: 07-19-2024 End: 07-19-2024 ambulatory [facility] Work Phone: Start: 07-19-2024 End: 07-19-2024 Patient encounter procedure [facility] Work Phone: Start: 07-10-2024 End: 07-10-2024 [facility] Work Phone: Start: 07-10-2024 End: 07-10-2024 Patient encounter procedure [facility] Work Phone: Start: 05-21-2024 End: 05-21-2024 Bamboo flowsliliana Girard MD Work Phone: [facility] Start: 05-21-2024 End: 05-21-2024 Bamboo flowsliliana Girard MD Work Phone: [facility] Start: 05-21-2024 End: 05-21-2024 Office outpatient visit 15 minutes Bashir Girard MD Work Phone: [facility] Comment on above: Seborrheic keratosis (Primary Dx); Lentigines; History of SCC (squamous cell carcinoma) of skin; History of malignant melanoma of skin; Actinic keratosis; Neoplasm of unspecified behavior of bone, soft tissue, and skin Start: 05-21-2024 End: 05-21-2024 ambulatory BASHIR GIRARD Not Available Start: 05-17-2024 End: 05-17-2024 [facility] Work Phone: Start: 05-17-2024 End: 05-17-2024 Patient encounter procedure [facility] Work Phone: Start: 04-11-2024 Non-patient / Non-visit [facility] Work Phone: Start: 03-29-2024 End: 03-29-2024 Nursing evaluation of patient and report Breath Test Sree Cp [facility] Work Phone: [facility] Comment on above: Diarrhea, unspecifie d type (Primary Dx) Start: 03-19-2024 End: 03-19-2024 ambulatory [facility] Work Phone: Start: 03-19-2024 End: 03-19-2024 Patient encounter procedure [facility] Work Phone: Start: 02-14-2024 End: 02-14-2024 Bamsonya flowsliliana Girard MD Work Phone: [facility] Start: 02-14-2024 End: 02-14-2024 Bamdanutao flowsliliana Girard MD Work Phone: [facility] Start: 02-14-2024 End: 02-14-2024 Office outpatient visit 25 minutes Bashir Girard MD Work Phone: [facility] Comment on above: Drug-induced photose nsitivity (Primary Dx); Seborrheic keratosis; Lentigines; Actinic keratosis; History of malignant melanoma of skin Start: 02-14-2024 End: 02-14-2024 ambulatory BASHIR GIRARD Not Available Start: 02-13-2024 End: 02-13-2024 ambulatory Bethel CHAIREZ Facility:[facility] Start: 02-13-2024 End: 02-13-2024 Patient encounter procedure Bethel CHAIREZ [facility] Start: 02-02-2024 End: 02-02-2024 ambulatory MD Miriam Juarez Work Phone: [facility] Work Phone: Start: 02-02-2024 End: 02-02-2024 Patient encounter procedure MD Miriam Juarez Work Phone[facility] Work Phone: Start: 01-02-2024 End: 01-02-2024 Subsequent hospital visit by physician Radha [place] Stress Room 1 [facility] Comment on above: Chest pain, unspecif ied type Start: 01-02-2024 End: 01-02-2024 ambulatory [facility] Start: 12-28-2023 End: 12-28-2023 Office outpatient visit 25 minutes Brendon Baron DO Work Phone: [facility] Comment on above: 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; Bradycardia; S/P PTCA (percutaneous transluminal coronary angioplasty); H/O non-ST elevation myocardial infarction (NSTEMI); Paroxysmal atrial fibrillation (Multi); High risk medication use; Hypertension, benign; Mixed hyperlipidemia; BMI 28.0-28.9,adult; Former smoker; Chest pain, unspecified type Start: 12-28-2023 End: 12-28-2023 ambulatory [facility] Start: 12-16-2023 Non-patient / Non-visit MD Deanna Juarez Work Phone: [facility] Work Phone: Start: 11-22-2023 Non-patient / Non-visit DO Levar Canela Work Phone: [facility] Work Phone: Start: 11-22-2023 End: 11-22-2023 ambulatory DO Irving Canela Work Phone: [facility] Work Phone: Start: 11-22-2023 End: 11-22-2023 Departed Referred DO Irving Canela Work Phone: [facility] Start: 11-15-2023 End: 11-15-2023 ambulatory DO Irving Ball Work Phone: [facility] Work Phone: Start: 11-15-2023 End: 11-15-2023 Patient encounter procedure DO Irving Ball Work Phone: [facility] Work Phone: Start: 11-14-2023 End: 11-14-2023 ambulatory BASHIR GIRARD Not Available Start: 10-29-2023 Non-patient / Non-visit DO Levar tania Ball Work Phone: [facility] Work Phone: Start: 10-26-2023 Non-patient / Non-visit DO Levar tania Ball Work Phone: [facility] Gastroenterology Work Phone: Start: 10-26-2023 End: 10-26-2023 Admission to same day surgery center DO Irving Ball Work Phone: [facility]-Digestive [facility] Work Phone: Start: 10-26-2023 End: 10-26-2023 ambulatory Irving Ball Facility:[facility] Start: 10-20-2023 Non-patient / Non-visit DO Levar tania Ball Work Phone: [facility] Work Phone: Start: 10-17-2023 End: 10-17-2023 ambulatory DO Irving Ball Work Phone: [facility] Work Phone: Start: 10-17-2023 End: 10-17-2023 Patient encounter procedure DO Irving Ball Work Phone: [facility] Gastroenterology Work Phone: Start: 2023 Non-patient / Non-visit DO Levar tania Ball Work Phone: [facility] Work Phone: Start: 09-23-2023 End: 09-23-2023 ambulatory DO Irving Canela Work Phone: [facility] Work Phone: Start: 09-23-2023 End: 09-23-2023 Patient encounter procedure DO Irving Canela Work Phone: [facility] Work Phone: Start: 09-14-2023 End: 09-14-2023 ambulatory DO Irving Canela Work Phone: [facility] Work Phone: Start: 09-14-2023 End: 09-14-2023 Patient encounter procedure DO Irving Canela Work Phone: [facility] Work Phone: Start: 09-01-2023 Non-patient / Non-visit DO Levar Canela Work Phone: [facility] Pulmonary Disease Work Phone: Start: 08-29-2023 End: 08-29-2023 Patient encounter procedure DO Irving Canela Work Phone: [facility]-Respiratory Therapy Work Phone: Start: 08-26-2023 Non-patient / Non-visit DO Levar Canela Work Phone: [facility] Work Phone: Start: 08-04-2023 End: 08-04-2023 ambulatory Irving Canela Other [facility] Other Start: 08-04-2023 Office outpatient vi sit 25 minutes Irving Canela [facility] Start: 07-25-2023 End: 07-25-2023 Office outpatient visit 25 minutes Brendon Baron DO Work Phone: [facility] Comment on above: Bradycardia; H/O non-ST elevation myocardial infarction (NSTEMI); Paroxysmal atrial fibrillation (CMS/HCC); S/P PTCA (percutaneous transluminal coronary angioplasty) Start: 05-13-2023 End: 05-13-2023 ambulatory Irving Canela Other [employer] Other Start: 05-13-2023 Office outpatient vi sit 15 minutes Irving Canela [facility] Start: 05-04-2023 End: 05-04-2023 ambulatory Irving Canela Other [employer] Other Start: 05-04-2023 Office outpatient vi sit 25 minutes Irving Canela [facility] Start: 04-21-2023 Telephone encounter Markell Montes sebas [facility] Start: 04-21-2023 End: 04-21-2023 Admission to same day surgery center DO Irving Canela Work Phone: [facility] Work Phone: Start: 04-21-2023 End: 04-21-2023 ambulatory DO Irving Canela Work Phone: [facility] Work Phone: Start: 03-25-2023 End: 03-25-2023 ambulatory Irving Canela Other [employer] Other Start: 03-25-2023 Telephone encounter Irving Canela [facility] Start: 03-23-2023 FUV, Provider: Florence Norman, Status: Pen, Time: 12:30 PM Irving Floyd Rola Work Phone: [facility] [facility] DO Work Phone: Start: 03-23-2023 ambulatory Ms. Henriquez Lupe Aden Facility: Start: 03-22-2023 Chart Update Irving shelby Work Phone: [facility] [facility] DO Work Phone: Start: 03-21-2023 Chart Update Irving shelby Work Phone: [facility] [facility] DO Work Phone: Start: 03-21-2023 End: 03-21-2023 ambulatory DO Irving Canela Work Phone: [facility] Work Phone: Start: 03-21-2023 End: 03-21-2023 Patient encounter procedure DO Irving Canela Work Phone: [facility]-Res[facility] Therapy Work Phone: Start: 03-07-2023 ambulatory Ms. Florence Aden Facility: Start: 03-01-2023 End: 03-01-2023 ambulatory Markell Hines Other [facility] Other Start: 03-01-2023 Office outpatient ne w 45 minutes Markell Hines [facility] Gastroenterology Start: 02-01-2023 End: 02-01-2023 ambulatory Irving Canela Other [facility] Other Start: 02-01-2023 Office outpatient vi sit 25 minutes Irving Canela [facility] Start: 01-13-2023 Rx Renewal Irving E Bal l Work Phone: [facility] [address] DO Work Phone: Start: 01-03-2023 Office outpatient vi sit 15 minutes Irving Mariel Ball Work Phone: [facility] [facility] DO Work Phone: Start: 01-03-2023 Patient encounter procedure Irving E Ball Work Phone: [facility] [facility] DO Work Phone: Start: 01-03-2023 ambulatory Ms. Florence Aden Facility: Start: 12-31-2022 Rx Renewal Irving E Bal l Work Phone: [facility] [facility] DO Work Phone: Start: 12-28-2022 ambulatory Rose Green Facility : Start: 12-08-2022 Office outpatient vi sit 5 minutes Irving Canela Work Phone: [facility] [facility] DO Work Phone: Start: 12-08-2022 Patient encounter procedure Irving Canela Work Phone: [facility] [facility] DO Work Phone: Start: 12-08-2022 ambulatory Ms. Florence Aden Facility: Start: 11-29-2022 Office outpatient vi sit 25 minutes Irving Canela Work Phone: [facility] [facility] DO Work Phone: Start: 11-29-2022 ambulatory Ms. Florence Aden Facility: Start: 11-02-2022 End: 11-02-2022 ambulatory Irving Canela Other [employer] Other Start: 11-02-2022 Transitional care echo fairbanks srvc 14 day discharge Irving Canela [facility] Start: 11-01-2022 End: 11-01-2022 ambulatory Irving Canela Other [employer] Other Start: 11-01-2022 Telephone encounter Irving Canela [facility] Start: 10-31-2022 End: 10-31-2022 ambulatory Irving Canela Other [employer] Other Start: 10-31-2022 Telephone encounter Irving Canela [facility] Start: 10-29-2022 End: 10-29-2022 ambulatory Irving Canela Other [employer] Other Start: 10-29-2022 Telephone encounter Irving ROSS G [facility] Start: 10-28-2022 Evaluation and manag ement of inpatient DO Irving Canela Work Phone: [facility] Work Phone: Start: 10-28-2022 observation encounter DO Miguel Canela Work Phone: [facility] Work Phone: Start: 10-26-2022 End: 10-26-2022 ambulatory Irving Canela Other [facility] Other Start: 10-26-2022 Patient encounter procedure Irving Canela [facility] Start: 10-20-2022 End: 10-21-[address] IRVING CANELA Facility: Start: 10-15-2022 Rx Renewal Irving Mariel Bal l Work Phone: [facility] 250 DO Work Phone: Start: 10-15-2022 End: 10-15-2022 ambulatory DO Irving Canela Work Phone: [facility] Work Phone: Start: 10-15-2022 End: 10-15-2022 Patient encounter procedure DO Irving Canela Work Phone: [facility]Res[facility] Work Phone: Start: 10-01-2022 End: 10-01-2022 ambulatory Irving Canela Other [facility] Other Start: 10-01-2022 Office outpatient vi sit 25 minutes Irving Canela [facility] Start: 09-30-2022 End: 09-30-2022 ambulatory Irving Rola Other [facility] Other Start: 09-30-2022 Telephone encounter Irving ROSS G [facility] Start: 09-08-2022 Patient encounter procedure Irving Floyd Rola Work Phone: [facility] 250 DO Work Phone: Start: 09-07-2022 End: 09-07-2022 ambulatory Irving Canela Other [facility] Other Start: 09-07-2022 Telephone encounter Irving ROSS G [facility] Start: 09-02-2022 End: 09-02-2022 ambulatory Irving Canela Other [facility] Other Start: 09-02-2022 Office outpatient vi sit 15 minutes Irving Canela [facility] Start: 08-18-2022 Rx Renewal Irving Rg l Work Phone: [facility] 250 DO Work Phone: Start: 08-18-2022 End: 08-18-2022 ambulatory Irving Canela Other [facility] Other Start: 08-18-2022 Office outpatient vi sit 25 minutes Irving Canela [facility] Start: 07-15-2022 Office outpatient vi sit 15 minutes Irving Canela Work Phone: [facility] 250 DO Work Phone: Start: 07-15-[address] Irving Canela Facility: Start: 07-12-2022 End: 07-12-2022 ambulatory DO Irving Canela Work Phone: [facility] Work Phone: Start: 07-12-2022 End: 07-12-2022 Patient encounter procedure DO Irving Canela Work Phone: [facility]Res[facility] Work Phone: Start: 06-15-2022 End: 06-15-[address] IRVING CANELA Facility:[facility]1 Start: 06-03-2022 Patient encounter procedure Irving Canela Work Phone: [facility] 250 DO Work Phone: Start: 05-31-[address] IRVING Downsi ty:[facility]1 Start: 05-13-2022 End: 05-14-2022 ambulatory RADHA RUBY . Facility:[facility] Start: 04-20-2022 End: 04-21-[address] IRVING CANELA Facility:[facility] Start: 04-13-2022 End: 04-13-[address] BEAU SIM . Facility:[facility] Start: 04-12-2022 Encounter for preprocedural laboratory examination DR BEAU SIM . [facility] Start: 04-10-2022 End: 04-11-[address] IRVING CANELA Facility:[facility] Start: 04-10-2022 End: 04-11-2022 Encounter for preprocedural laboratory examination DR IRVING CANELA Facility:[facility] Start: 03-25-2022 End: 03-26-[address] BEAU SIM . Facility:[facility] Start: 03-24-2022 End: 03-24-2022 ambulatory DO Irving Canela Work Phone: [facility] Work Phone: Start: 03-24-2022 End: 03-24-2022 Patient encounter procedure DO Irving Canela Work Phone: [facility]Res[facility] Start: 03-09-2022 End: 03-09-[address] BEAU SIM . Facility:[facility] Start: 02-26-2022 Patient encounter procedure [facility] Work Phone: Start: 02-09-2022 End: 02-10-[address] BEAU SIM . Facility:[facility]1 Start: 01-26-2022 End: 01-26-[address] BEAU SIM . Facility:[facility] Start: 01-19-2022 End: 01-20-[address] PHILL EUBANKS Facility:[facility] Start: 01-18-2022 Patient encounter procedure [facility] Work Phone: Start: 01-07-2022 End: 01-08-[address] PHILL EUBANKS Facility:[facility]1 Start: 01-05-2022 Office outpatient vi sit 40 minutes Irving Can[facility] Work Phone: Start: 12-29-2021 End: 12-30-[address] PHILL EUBANKS Facility:[facility]1 Start: 12-14-2021 Office outpatient vi sit 25 minutes Irving Floyd Ball Work Phone: [facility] [facility] DO Work Phone: Start: 11-09-2021 Adult health examination Miguelgabriella Canela Other [facility] Other Start: 10-29-2021 Patient encounter procedure Irving E Ball Work Phone: [facility] 250 DO Work Phone: Start: 10-29-2021 Rx Renewal Irving Floyd [facility] Work Phone: Start: 10-16-2021 Patient encounter procedure Irving E Ball Work Phone: [facility] [facility] DO Work Phone: Start: 10-07-2021 Office outpatient vi sit 25 minutes Irving Floyd Ball [facility] Work Phone: Start: 10-07-2021 Patient encounter procedure Irving E Ball Work Phone: [facility] [facility] DO Work Phone: Start: 09-25-2021 AUDIT Irving Floyd Bal l Work Phone: [facility] [facility] DO Work Phone: Start: 09-07-2021 Patient encounter procedure Irving E Ball Work Phone: [facility] [facility] DO Work Phone: Start: 09-04-2021 Telephone encounter Irving E Ball Work Phone: [facility] 250 DO Work Phone: Start: 08-14-2021 AUDIT Irving Floyd Bal l Work Phone: [facility] [facility] DO Work Phone: Start: 07-06-2021 Rx Renewal Irving Rg l Work Phone: [facility] [facility] DO Work Phone: Start: 07-01-2021 Office outpatient vi sit 25 minutes Irving Canela Work Phone: [facility] [facility] DO Work Phone: Start: 06-24-2021 Patient encounter procedure Florence Aden [employer] Work Phone: [facility] [facility] DO Work Phone: Start: 06-15-2018 End: 06-16-2018 Patient encounter procedure DEFAULT PHYSICIAN Facility:[facility] Start: 05-09-2018 End: 05-10-2018 Patient encounter procedure ANNA HOYT Facility:[facility] Procedures Date Procedure Procedure Detail Performing Clinician Start: 08-27-2024 CRYOTHERAPY SKIN LESION Bashir Girard MD Work Phone: Start: 07-24-2024 Ecg routine ecg w/least 12 [...] DO Irving Canela Work Phone: Start: 07-25-2023 Ecg routine ecg w/least 12 [...] Bethel CHAIREZ Colonoscopy Bethel CHAIREZ Depression screening Kamranami n Rola Other Destructive procedure Sukhjinder alex Mariel Canela Work Phone: History of placement of stent for coronary artery disease History of heart artery stent DO Irving Canela Work Phone: Percutaneous translu igor coronary angioplasty Irving Canela Work Phone: Placement of stent Bethel AMARO Procedure on back Irving Canela Work Phone: Procedure on prostate Benjam in Mariel Canela Work Phone: Tonsillectomy Bethel CHAIREZ Plan of Treatment Date Care Activity Detail Author Start: 09-02-2029 DTaP/Tdap/Td Vaccines (2 - Td or Tdap) DTaP/Tdap/Td Vaccines (2 - Td or Tdap) [facility] Start: 09-02-2029 Urine microalbumin profile DTaP,Tdap,Td Vaccine (2 - Td or Tdap) [facility] Start: 08-28-2026 Diabetes Screening Diabetes Screening [facility] Start: 11-29-2024 End: 11-29-2024 Patient encounter procedure 11/29/2024 1:30 PM EDT Office Visit [facility] [address] [place] [id number] Bashir Girard MD [address] [place] [address] [facility] Start: 11-15-2024 Medicare Annual Wellness Visit Medicare Annual Wellness Visit (AWV) [facility] Start: 08-29-2024 End: 08-29-2024 Patient encounter procedure [facility] Comment on above: Arrived Start: 08-27-2024 End: 08-27-2024 Patient encounter procedure [facility] Comment on above: Arrived Start: 08-01-2024 End: 08-01-2024 Patient encounter procedure 08/01/2024 2:15 PM EST Office Visit [facility] [place] [address] [place] [id number] Irving Fonseca, [address] [place] [address] Arrived [facility] Comment on above: Arrived Start: 07-24-2024 End: 07-24-2025 Aspartate aminotransferase [Enzymatic activity/volume] in Serum or Plasma by With P-5'-P Aspartate Aminotransferase Lab Routine High risk medication use Paroxysmal atrial fibrillation (Multi) Expected: 07/24/2024 (Approximate), Expires: 07/24/2025 [facility] Service Area Work Phone: Comment on above: [...] procedure 07/24/2024 2:00 PM EST Office Visit [facility] [address] [facility] [address] [place] [address] Brendon Baron DO [address] [facility] [address] [place] [address] [facility] Start: 07-24-2024 End: 07-24-2025 Thyrotropin [Units/volume] [...] procedure 07/23/2024 12:45 PM EST Office Visit [facility] [address] [place] [id number] Irving Fonseca DO [address] [place] [address] Basal cell carcinoma of skin of scalp and neck [facility] Comment on above: Basal cell carcinoma of skin of scalp an d neck Start: 05-21-2024 End: 05-21-2024 Patient encounter procedure [facility] Comment on above: Arrived Start: 03-29-2024 End: 12-27-2024 Aspartate aminotransferase [Enzymatic activity/volume] in Serum or Plasma by With P-5'-P Aspartate Aminotransferase Lab Routine Paroxysmal atrial fibrillation (Multi) High risk medication use Expected: 03/29/2024 (Approximate), Expires: 12/27/2024 [facility] Service Area Work Phone: Comment on above: [...] Expi res: 12/27/2024 Start: 02-26-2024 COVID-19 Vaccine ( season) COVID-19 Vaccine () [facility] Start: 02-26-2024 Covid-19 Vaccine ( season) Covid-19 Vaccine ( season) [facility] Start: 02-26-2024 Influenza vaccination Influenza Vaccine (#1) [facility] Start: 02-14-2024 End: 02-14-2024 Patient encounter procedure 02/14/2024 1:15 PM EDT Office Visit [facility] [address] [place] [address] Bashir Girard MD [address] [place] [address] Arrived [facility] SWS DERM Comment on above: Arrived Start: 02-02-2024 Patient referral [facility] Work Phone: Start: 12-28-2023 End: 12-27-2025 NM Heart Perfusion W stress and W radionuclide IV Nuclear Stress Test Cardiac Nuclear Medicine Routine Chest pain, unspecified type Expected: 12/28/2023 (Approximate), Expires: 12/27/2025 [facility] Work Phone: Comment on above: Expected: 12/28/2023 (Approximate), Expi res: 12/27/2025 Start: 10-26-2023 [facility] Start: 09-14-2023 Patient referral [facility] Work Phone: Start: 09-03-2023 COVID-19 Vaccine () COVID-19 Vaccine () [facility] Start: 07-20-2023 FUV, Provider: Brendon Baron, Status: Pen, Time: 10:00 AM FUV, Provider: Brendon Baron, Status: Pen, Time: 10:00 AM -[facility] 250 DO Work Phone: Start: 06-27-2023 Advance Directive Discussion Advance Directive Discussion [facility] Start: 04-21-2023 [facility] Start: 03-07-2023 FUV, Provider: Florence Norman, Status: Pen, Time: 9:00 AM FUV, Provider: Florence Norman, Status: Pen, Time: 9:00 AM -[facility] 250 DO Work Phone: Start: 01-03-2023 FUV, Provider: Florence Norman, Status: Pen, Time: 11:00 AM FUV, Provider: Florence Norman, Status: Pen, Time: 11:00 AM -[facility] 250 DO Work Phone: Start: 12-08-2022 BPCHESEBAS, Provider: LILLIANA MORALEZ PATIENT ACCOUNTS CLERK 1,[id number], Status: Pen, Time: 11:15 AM BPTANISHA, Provider: LILLIANA MORALEZ PATIENT ACCOUNTS CLERK 1,[id number], Status: Pen, Time: 11:15 AM -[facility] 250 DO Work Phone: Start: 12-08-2022 EVENT BEBE, Provider: LILLIANA MORALEZ PATIENT ACCOUNTS CLERK 1,[id number], Status: Pen, Time: 11:00 AM EVENT BEBE, Provider: LILLIANA MORALEZ PATIENT ACCOUNTS CLERK 1,[id number], Status: Pen, Time: 11:00 AM -[facility] 250 DO Work Phone: Start: 10-29-2022 [facility] Start: 10-28-2022 Hospital admission [facility] Start: 10-28-2022 Referral to mergers and acquisitions banker [facility] Start: 10-28-2022 [facility] Start: 10-28-2022 Plain chest X-ray XR chest 2V* [facility] Start: 10-28-2022 XR Chest 2 Views [facility] Start: 07-15-2022 FUV, Provider: Brendon Baron, Status: Pen, Time: 10:20 AM FUV, Provider: Brendon Baron, Status: Pen, Time: 10:20 AM -[facility] 250 DO Work Phone: Start: 01-05-2022 FUV, Provider: Brendon Baron, Status: Pen, Time: 1:30 PM FUV, Provider: Brendon Baron, Status: Pen, Time: 1:30 PM -[facility] 250 DO Work Phone: Start: 12-14-2021 FUV, Provider: Brendon Ceja, Status: Pen, Time: 8:30 AM FUV, Provider: Brendon Ceja, Status: Pen, Time: 8:30 AM -[facility] 250 DO Work Phone: Start: 11-20-2021 FUV, Provider: Brendon Ceja, Status: Pen, Time: 3:30 PM FUV, Provider: Brendon Ceja, Status: Pen, Time: 3:30 PM -[facility] 250 DO Work Phone: Start: 10-15-2021 EKG, Provider: LILLIANA MORALEZ PATIENT ACCOUNTS CLERK 1,[id number], Status: Pen, Time: 1:00 PM EKG, Provider: LILLIANA MORALEZ PATIENT ACCOUNTS CLERK 1,[id number], Status: Pen, Time: 1:00 PM -[facility] 250 DO Work Phone: Start: 10-07-2021 FUV, Provider: Florence Norman, Status: Pen, Time: 9:30 AM FUV, Provider: Florence Norman, Status: Pen, Time: 9:30 AM -[facility] 250 DO Work Phone: Start: 09-07-2021 HOLTER MON, Provider: LILLIANA MORALEZ PATIENT ACCOUNTS CLERK 1,[id number], Status: Pen, Time: 9:30 AM HOLTER MON, Provider: LILLIANA MORALEZ PATIENT ACCOUNTS CLERK 1,[id number], Status: Pen, Time: 9:30 AM -[facility] 250 DO Work Phone: Start: 09-02-2021 FUV, Provider: Florence Norman, Status: Pen, Time: 9:00 AM FUV, Provider: Florence Norman, Status: Pen, Time: 9:00 AM -[facility] 250 DO Work Phone: Start: 07-01-2021 FUV, Provider: Brendon Baron, Status: Pen, Time: 11:20 AM FUV, Provider: Brendon Baron, Status: Pen, Time: 11:20 AM -[facility] 250 DO Work Phone: Start: 03-14-2018 Pneumococcal vaccination Pneumococcal Vaccine (2 of 2 - PCV) [facility] Start: 03-14-2018 Pneumococcal Vaccine: 65+ Years (2 - PCV) Pneumococcal Vaccine: 65+ Years (2 - PCV) [facility] Start: 03-14-2018 Pneumococcal Vaccine: 65+ Years (2 of 2 - PCV) Pneumococcal Vaccine: 65+ Years (2 of 2 - PCV) [facility] Start: 2016 RSV High Risk: (Elderly (60+) or Population) (1 - 1-dose 75+ series) RSV High Risk: (Elderly (60+) or Population) (1 - 1-dose 75+ series) [facility] Start: 2016 RSV Vaccine (1 - 1-dose 75+ series) RSV Vaccine (1 - 1-dose 75+ series) [facility] Start: 01-07-2015 Zoster Vaccines (2 of 3) [...] Hospital Start: 10-14-1959 Anxiety Screening Anxiety Screening [facility] Start: 10-14-1959 Depression Screening Depression Screening [facility] Start: 10-14-1959 Diabetes mellitus screening Diabetes Screening [facility] Start: 1940 Lipid panel Lipid Panel [facility] Start: 1940 Medicare Annual Wellness Visit Medicare Annual Wellness Visit (AWV) [facility] Start: 1940 Thyroid stimulating hormone measurement TSH Level [facility] Bacteria identified in Stool by Culture [facility] Calculated LDL cholesterol level [facility] Cholesterol.total/Ch olest stuart in HDL [Mass Ratio] in Serum or Plasma [facility] Dermatopathology exam Dermatopat hology exam Pathology and Cytology Timed Neoplasm of unspecified behavior of bone, soft tissue, and skin Release Upon Ordering for 1 Occurrences starting 05/21/2024 [facility] Work Phone: Comment on above: Release Upon Ordering for 1 Occurrences starting 05/21/2024 Elastase.pancreatic [Mass/mass] in Stool [facility] Glucose measurement estimated from glycated hemoglobin [facility] Hemoglobin A1c/Hemoglobin.total in Blood [facility] End: 01-02-2024 NM Heart Perfusion W stress and W radionuclide IV [facility] Service Area Work Phone: Comment on above: Once for 1 Occurrences starting 01/02/20 24 until 01/02/2024 Patient Education [facility] Work Phone: [facility] Work Phone: VLDL cholesterol measurement [facility] XR Abdomen Single view [facility] Immunizations Immunization Date Immunization Notes Care Provider Kanwal peterson 09-03-2024 RSV, preF3, adj, pf Irving Canela DO Work Phone: [facility] 04-26-2024 Seasonal trivalent influenza vaccine, adjuvanted, preservative free Irving Fonseca DO Work Phone: [facility] 04-26-2024 influenza virus vaccine, unspecified formulation Bashir Girard MD Work Phone: [facility] 05-05-2023 Influenza, Seasonal, Quadrivalent, Adjuvanted Irving Fonseca DO Work Phone: [facility] 05-05-2023 SARS-COV-2 (COVID-19 ) vaccine, mRNA, spike protein, LNP, PF, 50 mcg/0.5 mL Irving Fonseca DO Work Phone: [facility] 05-05-2023 influenza virus vaccine, unspecified formulation Brendon Baron DO Work Phone: [facility] Work Phone: 05-04-2023 influenza virus vaccine, unspecified formulation DO Irving Rola Work Phone: [facility] 05-04-2023 influenza, high dose seasonal, preservative-free Irving Canela Other [employer] [facility] [employer] Other 04-29-2022 COVID-19 Moderna (BIvalent) Irving Canela Other [facility] 04-29-2022 Moderna SARS-CoV-2 Vaccination Brendon Tod DO Work Phone: [facility] Work Phone: 04-15-2022 Fluad Quadrivalent 0 .5 ML Intramuscular Prefilled Syringe Irving Canela Work Phone: [facility] 250 DO Work Phone: 04-15-2022 influenza virus vaccine, split virus (incl. purified surface antigen) Irving Canela Other [facility] [employer] Other 04-15-2022 influenza virus vaccine, unspecified formulation DO Irving Canela Work Phone: [facility] 04-15-2022 influenza, injectabl e, quadrivalent, preservative free Brendon Baron DO Work Phone: [facility] Work Phone: 03-27-2022 influenza virus vaccine, unspecified formulation DO Irving Canela Work Phone: [facility] 03-27-2022 influenza, high dose seasonal, preservative-free Irving Canela Work Phone: [facility] 250 DO Work Phone: Comment on above: Series: 08-14-2021 Moderna SARS-CoV-2 Vaccination Irving Fonseca DO Work Phone: [facility] 07-14-2021 Moderna SARS-CoV-2 Vaccination Irving Fonseca DO Work Phone: [facility] 04-17-2021 Moderna COVID-19 Vaccine 100 MCG/0.5ML Intramuscular Suspension Irving Canela Work Phone: [facility] 03-30-2021 influenza virus vaccine, split virus (incl. purified surface antigen) Irving Canela Other [facility] [employer] Other 03-30-2021 influenza virus vaccine, unspecified formulation DO Irving Canela Work Phone: [facility] 03-27-2021 influenza virus vaccine, unspecified formulation Irving Fonseca DO Work Phone: [facility] 08-14-2020 Moderna COVID-19 Vaccine 100 MCG/0.5ML Intramuscular Suspension Irving Canela Work Phone: [facility] 07-14-2020 Moderna COVID-19 Vaccine 100 MCG/0.5ML Intramuscular Suspension Irving Canela Work Phone: [facility] 04-14-2020 influenza virus vaccine, split virus (incl. purified surface antigen) Irving Canela Other [facility] [employer] Other 04-14-2020 influenza virus vaccine, unspecified formulation DO Irving Canela Work Phone: [facility] 03-27-2020 influenza virus vaccine, unspecified formulation Irving Fonseca DO Work Phone: [facility] 09-03-2019 tetanus toxoid, redu praneeth diphtheria toxoid, and acellular pertussis vaccine, adsorbed Irving Fonseca DO Work Phone: [facility] 03-07-2019 influenza, high dose seasonal, preservative-free Brendon Baron DO Work Phone: [facility] Work Phone: 03-07-2019 Seasonal trivalent influenza vaccine, adjuvanted, preservative free Irving Canela Work Phone: [facility] DO Work Phone: 02-25-2019 influenza virus vaccine, unspecified formulation Irving Fonseca DO Work Phone: [facility] 09-07-2018 zoster vaccine recombinant Irving Fonseca DO Work Phone: [facility] 06-24-2018 zoster vaccine recombinant Irving Canela Work Phone: [facility] DO Work Phone: 06-07-2018 zoster vaccine recombinant Irving Fonseca DO Work Phone: [facility] 04-11-2018 influenza, injectabl e, quadrivalent, preservative free Irving Canela Work Phone: [facility] Work Phone: 03-27-2018 influenza virus vaccine, unspecified formulation Irving Fonseca DO Work Phone: [facility] 03-08-2018 influenza virus vaccine, split virus (incl. purified surface antigen) Irving Canela Other [facility] [employer] Other 03-08-2018 influenza virus vaccine, unspecified formulation DO Irving Canela Work Phone: [facility] 04-27-2017 influenza virus vaccine, unspecified formulation Irving Fonseca DO Work Phone: [facility] 03-14-2017 influenza virus vaccine, split virus (incl. purified surface antigen) Irving Canela Other [facility] [employer] Other 03-14-2017 influenza virus vaccine, unspecified formulation DO Irving Canela Work Phone: [facility] 03-14-2017 influenza, high dose seasonal, preservative-free Irving Canela Work Phone: [facility] 250 DO Work Phone: 03-14-2017 pneumococcal polysaccharide vaccine, 23 valent Irving Canela Work Phone: [facility] 03-27-2016 influenza virus vaccine, unspecified formulation Irving Fonseca DO Work Phone: [facility] 03-12-2016 influenza virus vaccine, split virus (incl. purified surface antigen) Irving Canela Other [facility] [employer] Other 03-12-2016 influenza virus vaccine, unspecified formulation DO Irving Canela Work Phone: [facility] 03-12-2016 pneumococcal conjuga te vaccine, 13 valent Irving Canela Other [facility] 03-26-2015 influenza virus vaccine, split virus (incl. purified surface antigen) Irving Canela Other [facility] [employer] Other 03-26-2015 influenza virus vaccine, unspecified formulation DO Irving Canela Work Phone: [facility] 11-12-2014 zoster vaccine, live Benjzeny Canela Work Phone: [facility] 04-03-2014 tetanus and diphther ia toxoids, adsorbed, preservative free, for adult use (5 Lf of tetanus toxoid and 2 Lf of diphtheria toxoid) Irving Canela Other [facility] 04-03-2009 influenza virus vaccine, unspecified formulation Irving Fonseca DO Work Phone: [facility] 03-27-2008 influenza virus vaccine, unspecified formulation Irving Fonseca DO Work Phone: [facility] 11-07-2007 pneumococcal vaccine , unspecified formulation Irving Fonseca DO Work Phone: [facility] Healthcare Payers Date Payer Category Payer Medicare supplementa l policy (as second payer) [employer] MEDIC[employer] SUPPLEMENT [id number] 2024 Private Health Insurance [id number] 2019 Medicare [id number] 2015 Private Health Insurance [id number] 2006 Medicare [id number] 1.13.647. [id number] 1959 Medicare [id number] 1959 Private Health Insurance [id number] 1959 Self-pay [id number] 1941 Unknown [id number] 2.16.840.1.578879.3.579. 2.647 1941 Unknown [id number] 2.16.840.1.047147.3.579. 2.647 1941 Unknown [id number] 2.16.840.1.922758.3.579. 2.593 1941 Unknown [id number] 2.16.840.1.866974.3.579. 2.593 1941 Unknown [id number] 2.16.840.1.964188.3.579. 2.593 1941 Unknown [id number] 2.16.840.1.976505.3.579. 2.593 1941 Unknown [id number] 2.16.840.1.736391.3.579. 2.593 1941 Unknown [id number] 2.16.840.1.613112.3.579. 2.593 1941 Unknown [id number] 2.16.840.1.276026.3.579. 2.593 1941 Unknown [id number] 2.16.840.1.619640.3.579. 2.593 1941 Unknown [id number] 2.16.840.1.982741.3.579. 2.593 1941 Unknown [id number] 2.16.840.1.400112.3.579. 2.593 1941 Unknown [id number] 2.16.840.1.857220.3.579. 2.593 1941 Unknown [id number] 2.16.840.1.194852.3.579. 2.593 1941 Unknown [id number] 2.16.840.1.160382.3.579. 2.593 1941 Unknown [id number] 2.16.840.1.275006.3.579. 2.356 1941 Unknown [id number] 2.16.840.1.846923.3.579. 2.356 1941 Unknown [id number] 2.16.840.1.268157.3.579. 2.356 1941 Unknown [id number] 2.16.840.1.886726.3.579. 2.356 1941 Unknown [id number] 2.16.840.1.946520.3.579. 2.356 1941 Unknown [id number] 2.16.840.1.201374.3.579. 2.356 1941 Unknown [id number] 2.16.840.1.276060.3.579. 2.356 1941 Unknown [id number] 2.16840.1.311442.3.579. 2.1246 1941 Unknown [id number] 2.16840.1.501492.3.579. 2.1246 1941 Unknown [id number] 2.16840.1.878038.3.579. 2.1246 1941 Unknown [id number] 2.16840.1.129668.3.579. 2.1246 1941 Unknown [id number] 2.16840.1.441310.3.579. 2.1246 1941 Unknown [id number] 2.16.840.1.849355.3.579. 2.727 1941 Unknown [id number] 2.16.840.1.430682.3.579. 2.1259 1941 Unknown [id number] 2.16.840.1.684762.3.579. 2.1259 1941 Unknown [id number] 2.16.840.1.532134.3.579. 2.1259 1941 Unknown [id number] 2.16.840.1.917851.3.579. 2.1259 1942 Unknown [id number] 2.16.840.1.555702.3.579. 2.1259 1941 Unknown [id number] 2.16.840.1.134233.3.579. 2.1259 1941 Unknown [id number] 2.16.840.1.246611.3.579. 2.1258 1941 Unknown [id number] 2.16.840.1.577608.3.579. 2.1259 1941 Unknown [id number] 2.16.840.1.551677.3.579. 2.1259 1941 Unknown [id number] 2.16.840.1.273948.3.579. 2.1244 1941 Unknown [id number] 2.16.840.1.888863.3.579. 2.1244 Medicare [id number] Private Health Insurance [facility] [id number] Unknown Unknown [id number] 2.16.840.1.407545.3.579. 2.593 Unknown [id number] 2.16.840.1.515470.3.579. 2.531 Unknown [id number] 2.16.840.1.207619.3.579. 2.531 Unknown [id number] 2.16840.1.322535.3.579. 2.531 Social History Date Type Detail Facility Start: 07-25-2023 End: 08-29-2024 Consumes alcohol occasionally Consumes alcohol occasionally -[facility] [address] DO Work Phone: Comment on above: 1-2 cups daily; quit 1995ish; Start: 03-10-2022 End: 05-12-2023 Tobacco smoking status NHIS Never smoked tobacco (finding) [facility] Start: 1940 Sex Assigned At Male F [facility] Start: 07-25-2023 End: 08-29-2024 [facility]igned At [facility] Start: 04-21-2023 End: 03-19-2024 Tobacco smoking status NHIS Ex-smoker (finding) [facility] History of tobacco use Current smoker [facility] Work Phone: History of tobacco use Cigarette Smoker [facility] Work Phone: Start: 07-25-2023 End: 08-29-2024 Alcohol intake Current drinker of alcohol (finding) [facility] Work Phone: Start: 06-24-2023 Alcohol Comment occasional [facility] Work Phone: Start: 1940 Sex Assigned At Not on file [facility] Work Phone: Start: 07-15-2023 End: 07-24-2024 Exposure to SARS-CoV-2 (event) Not sure [facility] Tobacco smoking stat us NHIS Tobacco smoking consumption unknown [facility] National Score (1-100), lower number is lower risk 63 [facility] Start: 05-17-2024 End: 09-19-2024 Sex Male (finding) [facility] Start: 05-12-2023 End: 12-28-2023 Tobacco use and exposure Smokeless tobacco non-user [facility] Work Phone: NEGATED: Highlighted rowStart: NINF History of tobacco use Passive smoker [facility] Goals Date Patient Goal Desired Activity /State Clinical Notes 12-30-2021 to 08-29-2024 Irving Fonseca, DO - 08/29/2024 2:45 PM More Girard MD - 08/27/2024 1:05 PM Frederic Fonseca, DO - 08/01/2024 2:15 PM Pamela Baron, DO - 07/24/2024 2:00 PM EST Note Date & Type Note Facility 08-29-2024 History of Presen t illness Narrative HPI Patient presents today 1 month postop repair of a right neck Mohs defect with the flap. He is doing fine. Relevant postoperative physical examination Examination shows the flap is well healed and settling down nicely. Assessment/plan Valentín was seen today for post-op. Diagnoses and all orders for this visit: Mohs defect of neck (Primary) Comments: I advised the patient to massage the area to soften up some of the fibrosis. I will see him back as needed documented in this encounter [facility] 08-28-2024 Procedure note [facility] enter 08-27-2024 History of Present illness Narrative Images from the original note were not included. Skin Check Location: Patient requests a full body skin examination Dermatologic history: history of Actinic Keratosis, history of Basal Cell Carcinoma, history of Squamous Cell Carcinoma, history of Melanoma Last skin check: 3 months ago. Last visit: 07/19/24 Mohs surgery BCC anterior neck Melanoma History Location: right shoulder Date of Melanoma dx: 08/2017 Melanoma details: Malignant Melanoma Breslow's depth: 0.6 mm Mitotic rate: 0/mm squared Ulceration: not present Melanoma treatment: wide excision All pertinent medical history, medications, and allergies were reviewed. General Exam: alert, oriented to person, place, and time, normal affect, well appearing Unaccompanied Scalp, Examined Right leg Examined Head, Face [...] spectrum sunscreen SPF 30 or higher 3. Actinic keratosis (8) Left Forearm - Posterior (3), Mid Frontal Scalp, Mid Parietal Scalp, Right Frontal Scalp, Right Temporal Scalp (2) Erythematous scaly papules Patient was [...] limited to risks of scarring, darker or aviation electronics technician pigmentary changes, recurrence, incomplete removal and infection. [...] or tenderness Cryotherapy, skin lesion - Left Forearm - Posterior (3), Mid Frontal Scalp, Mid Parietal Scalp, Right Frontal Scalp, Right Temporal Scalp (2) 4. History of malignant melanoma of skin [...] or around the previous melanoma scar. Next visit: 3 month skin exam documented in this encounter [facility] 08-01-2024 History of Present illness Narrative HPI Patient presents today status post repair of a Mohs defect of the right upper neck week ago. He is doing fine. Relevant postoperative physical examination Sutures removed, wound healing very nicely. Assessment/plan Valentín was seen today for mohs defect of neck. Diagnoses and all orders for this visit: Mohs defect of neck (Primary) Comments: Wound instructions given, I will see him back in a month documented in this encounter [facility] 07-24-2024 History of Present illness Narrative Subjective [...] history of ASHD with three-vessel PCI's in [place], last catheterization performed by myself, from 06/16 [...] other systems reviewed and are negative. Vitals: 07/24/24 1415 BP: 110/62 BP Location: Left arm [...] Rfl: Assessment/Plan 1. Coronary artery disease involving qawalangin coronary artery of qawalangin heart without angina pectoris 2. Bradycardia Follow [...] MG tablet, TAKE 1/2 TABLET BY MOUTH LEDY THROUGH TUESDAY ONLY, Disp: , Rfl: amitriptyline [...] consented to proceed. documented in this encounter [facility] 07-19-2024 History of Present illness Narrative Images [...] meds, nerve injury, and recurrence were addressed.) Lilly Protocol: Procedure explained and questions answered to [...] sodium bicarbonate Procedure Details: Biopsy accession number: [id number] Biopsy lab: [facility] Date of biopsy: 05/21/2024 Frozen section biopsy [...] Next visit: 08/27/2024 documented in this encounter [facility] 07-10-2024 Evaluation note Diagnosis Onset Date Resolution Essential hypertension acute [facility] 2024 1:46pm Chronic obstructive pulmonary disease with (acute) lower respiratory infection noneactive July 10 1:46pm Acute exacerbation of chronic obstructive airways disease noneactive July 10 1:46pm ASHD (arteriosclerotic heart disease) acute July 19 11:23am Essential hypertension acute [facility] 2024 11:23am Gastroesophageal reflux disease with esophagitis without hemorrhage acute July 19, 2024 11:23am Iron deficiency anemia due to chronic blood loss acute Januar 2024 11:23am Irritable bowel syndrome with diarrhea acute July 19 11:23am Paroxysmal atrial fibrillation acute July 19 11:23am Primary insomnia acute July 19, 2024 11:23am [facility] Work Phone: 1(513) 625-144811-25-2024 History of Present illness Narrative* Bashir Girard MD - 05/21/2024 1:15 PM EST Images from the original note were not [...] limited to risks of scarring, darker or aviation electronics technician pigmentary changes, recurrence, incomplete removal and infection. [...] day supply but only use for14 days. 6. Neoplasm of unspecified behavior of bone, soft tissue, and skin anterior neck [place] pearly papule Lesion biopsy Type of biopsy: [...] 3 month skin exam [id number] Evaluation note* Diagnosis Onset Date Resolution Status Admit Date Acute bronchitis due to othe r specified organisms acute April 8:16am Insomnia acute May 17, 2024 8:16am Small intestinal bacterial overgrowth (SIBO) acute May 17, 2024 8:16am [facility] Work Phone: 1(192) 587-251811-21-2024 Evaluation note* Diagnosis Onset Date Resolution Status Admit Date Acute bronchitis due to othe r specified organisms acute April 8:16am Insomnia acute May 17, 2024 8:16am Small intestinal bacterial overgrowth (SIBO) acute May 17, 2024 8:16am Essential hypertension acute [facility] 2024 1:46pm Chronic obstructive pulmonar y disease with (acute) lower respiratory infection noneactive July 102024 1:46pm Acute exacerbation of chroni c obstructive airways disease noneactive [facility] 2024 1:46pm ASHD (arteriosclerotic heart disease) acute July 19 11:23am Essential hypertension acute [facility] 2024 11:23am Gastroesophageal reflux disease with esophagitis without hemorrhage acute July 19, 2024 11:23am Iron deficiency anemia due t o chronic blood loss acute July 19, 2024 11:23am Irritable bowel syndrome wit h diarrhea acute July 19 11:23am Paroxysmal atrial fibrillation acute July 19, 2024 11:23am Primary insomnia acute July 19, 2024 11:23am [facility] Work Phone: 1(924) 794-982610-03-2024 History of Present illness Narrative* Keiko Naik APRN.CNP - 03/29/2024 2:43 PM EDT Glucose - SIBO CPT 88201 Hydrogen Breath Test Valentín Buckner 1940 March 29, 2024 Referring Physician: Dr. Sung Ochoa Indication: NSG TEST INDICATIONS: Diarrhea R19.7 Weight: 196 lbs Location: [facility] Duration of Test: 2 Hours Hydrogen Methane CO2 MEASURED CORRECTION FACTOR TESTERS NAME Baseline 8:45 am 4 4 4.1 1.34 Sharmin Beauchamp MA Test Solution Given: 100 mg of Glucose 10 oz liquid Sharmin Beauchamp MA #1 - 15 minutes 9:00 am 9 6 3.6 1.52 Sharmin Beauchamp MA #2 - 30 minutes 9:15 am 18 8 3.4 1.61 Sharmin Beauchapm MA #3 - 45 minutes 9:30 am [...] Signature: Keiko Naik APRN.CNP documented [facility] Evaluation note* Diagnosis Onset Date Resolution Status Admit Date ASHD (arteriosclerotic heart disease) acute March 19, 2024 11:25am Essential hypertension acute Se pt2023 11:25am Gastroesophageal reflux dise ase with esophagitis without hemorrhage acute March 19, 2024 11:25am Iron deficiency anemia due t o chronic blood loss acute February 11:25am Irritable bowel syndrome wit h diarrhea acute March 19, 2024 11:25am Paroxysmal atrial fibrillation acute March 19, 2024 11:25am Primary insomnia acute r 2023 11:25am [facility] Work Phone: 1(799) 543-320708-20-2024 History of Present illness Narrative* Bashir Girard [...] (6), Left Shoulder - Anterior, Left [place], Left Episcopalian, Right Forearm - Posterior (2) Erythematous scaly [...] limited to risks of scarring, darker or aviation electronics technician pigmentary changes, recurrence, incomplete removal and infection. [...] Posterior (6),Left Shoulder - Anterior, Left [place], Left Episcopalian, Right Forearm - Posterior (2) Related Medications [...] Next Visit: 3 months documented in this encounterEllis Fischel Cancer [id number] Evaluation note* Author Col[facility] Authored February 02, 2024 11: 45am 83-year-old [...] is negative will consider Imodium or Bentyl [facility] Work Phone: 1(877) 298-834507-03-2024 History of Present illness Narrative* Brendon Baron, DO - 12/28/2023 10:30 AM EDT Subjective Valentín Buckner is a 83 y.o. male Chief Complaint Follow-up 83-year-old gentleman here for follow-up and had 1 emergency room visit for jaw/chest discomfort following a 3 mile bike ride. He was seen at [place] [facility], details of the ER note, ECGs and labs are reviewed Since that time, he has had no further events, he is even ridden his bike 3 miles and walked 1 milewithout any events. He has a history of ASHD with three-vessel PCI's in [place], last catheterization performed by myself, from 06/16 [...] Rfl: Assessment/Plan 1. Coronary artery disease involving qawalangin coronary artery of qawalangin heart without angina pectoris 2. Bradycardia 3. S/P PTCA (percutaneous transluminal coronary angioplasty) 4. H/O non-ST elevation myocardial infarction (NSTEMI) 5. Paroxysmal atrial fibrillation (Multi) 6. High risk medication use 7. Hypertension, benign 8. Mixed hyperlipidemia 9. BMI 28.0-28.9,adult 10. Former smoker Scribe Attestation By signing my name below, I, Elizabeth Adhikari LPN attest that this documentation has been prepared [...] exam, discussion and plan. documented in this [facility] Work Phone: 1(250) 934-255107-03-2024 Instructions* Patient Instructions* Cass Rogers LPN - [...] through Care Everywhere. * Heart Healthy Diet (Maltese) documented in [facility] Work Phone: [phone]) 875-290104-22-2024 Hospital Discharge instructions Follow Up Care 10/17/2023 15:55:07 With:MIHAELA MORALES, Btehel Burgess, URL Address: [facility] [address], [place] [address]- [phone] When: Unknown [facility] 04-22-2024 Evaluation note* Author [facility] Authored October 17, 2023 2:5 5pm 83-year-old [...] colonic biopsies to assess for microscopic colitis [facility] Work Phone: [phone]) 340-302402-08-2024 Evaluation note* Encounter Date Diagnosis Assessment Notes [...] are maintaining regular scheduled appts with their mergers and acquisitions banker.TT Jul, Primary hypertension (ICD-10 - I10) This [...] phone, TV, exercise and eating prior to [employer] Other 01-29-2024 History of Present illness Narrative* Brendon Baron, - 07/25/2023 1:00 PM EST Kenneth Buckner is a 82 y.o. male Chief Complaint Annual Exam 82-year-old gentleman returns for follow-up and is doing well he has no anginal complaints, heart failure or recurrent hospitalizations. He status post non-ST elevation AR May 2021, with a history of ASHD and prior three-vessel PCIin [place]. 1 of those events was for an inferior AR with revascularization of the RCA. Patient is [...] one tablet by mouth every Mon, Wed, Fri, Disp: , Rfl: atorvastatin (Lipitor) 40 mg [...] name below, I, Janie Prather LPN , Scribe attest that this documentation has been prepared under the direction and in the presence of Cassandra Baron DO. Assessment/Plan 1. Bradycardia 2. H/O non-ST elevation myocardial infarction (NSTEMI) 3. Paroxysmal atrial fibrillation (CMS/HCC) 4. 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 Tylenol as needed Apr, Strain of right rotator cuff capsule, initial encounter (ICD-10 - S46.011A) Ice, heat and ROM exercises. Tylenol, Lidocaine and Voltaren Gel. Call if pain increases. [employer] Other 11-08-2023 Evaluation note* Encounter Date Diagnosis [...] are maintaining regular scheduled appts with their mergers and acquisitions banker. Apr, Primary hypertension (ICD-10 - I10) This [...] minutes, 3-5 times weekly. Apr, Other Normal [employer] Other 10-26-2023 [facility] Evaluation note* Author Colleen Ochoa [facility] Authored February 02, 2024 11: 43am [...] colonic biopsies to assess for microscopic colitis [facility] Work Phone: [phone]) [phone] Evaluation note* Encounter Date Diagnosis Assessment Notes Treatment Notes Treatment Clinical Notes Feb, Primary hypertension (ICD-10 - I10) [facility] [employer] Other 09-05-2023 Evaluation note* Encounter Date Diagnosis [...] procedure explained to patient; patient verbalizes understanding. [employer] Other 08-08-2023 Evaluation note* Encounter Date Diagnosis [...] are maintaining regular scheduled appts with their mergers and acquisitions banker. No obvious bleeding complications Jan, Primary hypertension [...] labs - GI referral later this month [employer] Other 05-09-2023 Evaluation note* Encounter Date Diagnosis [...] are maintaining regular scheduled appts with their mergers and acquisitions banker. October, Primary hypertension (ICD-10 - I10) This [...] Recently decreased to 100mg qod. F/U Cardiology [employer] Other 05-05-2023 Evaluation note* Encounter Date Diagnosis Assessment Notes Treatment Notes Treatment Clinical Notes October, Paroxysmal atrial fibrillation (ICD-10 - I48.0) [employer] Other 05-02-2023 Evaluation note* Encounter Date Diagnosis [...] are maintaining regular scheduled appts with their mergers and acquisitions banker. 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 [employer] Other 04-07-2023 Evaluation note* Encounter Date Diagnosis [...] are maintaining regular scheduled appts with their mergers and acquisitions banker. Sep, Iron deficiency anem ia due to [...] Diet and exercise with continued statin therapy. 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 Valsalva multiple times No improvement, may require referral to ENT Aug, Fecal urgency (ICD-10 - R15.2) Diet instructions. Restart Metamucil [employer] Other 02-22-2023 Evaluation note* Encounter Date Diagnosis Assessment Notes Treatment Notes Treatment Clinical Notes Jul, Paroxysmal atrial fibrillation (ICD-10 - I48.0) This patient is in NSR. This patient is anticoagulated to prevent thromboembolic events. They are maintaining regular scheduled appts with their mergers and acquisitions banker. Jul, ASHD (arteriosclerot ic heart disease) (ICD-10 [...] (ICD-10 - K58.0) Diet instructions, add Metamucl [employer] Other 11-17-2022 NoteCONSULTATION CONSULTATION DATE: 05/13/2022 This [...] patient is in agreement to this. [facility] [id number] NoteCONSULTATION CONSULTATION DATE: 03/25/2022 HISTORY OF PRESENT [...] followed up in the clinic post procedure.[facility] [id number] NoteCONSULTATION CONSULTATION DATE: 02/09/2022 CHIEF COMPLAINT: [place] [...] would like to proceed. CC: Irving Canela D.O.[facility] [id number] NoteCONSULTATION CONSULTATION DATE: 01/19/2022 CHIEF COMPLAINT: Chronic [...] CC: Brendon Ceja M.D. Irving Canela D.O.[facility] [id number] NotePROCEDURE: XR HIP RT 2 3V W [...] authenticated by: LYNDA BYNUM Date: 2021-12-30 11:33[facility] HospitalEvaluation + Plan note No data available for this section [facility] evaluation noteNo assessment information available [facility] Work Phone: Evaluation noteNo InformationNort [employer] Other Evaluation note* Diagnosis Onset Date Resolution Status Coronary artery disease acut e Dizziness acute Dyspnea acute Essential hypertension acute History of heart artery stent acute Hyperlipidemia acute Pre-syncope acute [facility] Work Phone: Evaluation note* Diagnosis Onset Date Resolution Status Change in bowel function acu te [facility] Work Phone: Evaluation note* Diagnosis Bradycardia [...] blood loss acute Paroxysmal atrial fibrillation acute [facility] Work Phone: Evaluation note* Diagnosis Onset [...] chronic blood loss acute Loose stools acute [facility] Work Phone: Evaluation note* Diagnosis Diarrhea, unspecified type- Primary documented in this encounter [facility]* Diagnosis Seborrheic keratosis- Primary Lentigines History of SCC (squamous cell carcinoma) of skin Personal history of other malignant neoplasm of skin History of malignant melanoma of skin Personal history of malignant melanoma of skin Actinic keratosis Neoplasm of unspecified behavior of bone, soft tissue, and skin documented in this encounter [facility]* Diagnosis Coronary artery disease involving qawalangin coronary artery of qawalangin heart without angina pectoris Bradycardia Other specified cardiac dysrhythmias S/P PTCA (percutaneous transluminal coronary angioplasty) Postsurgical percutaneous transluminal coronary angioplasty status H/O non-ST elevation myocardial infarction (NSTEMI) Paroxysmal atrial fibrillation (Multi) Atrial fibrillation High risk medication use Hypertension, benign Essential hypertension, benign Mixed hyperlipidemia BMI 28.0-28.9,adult Former smoker Personal history of tobacco use, presenting hazards to [facility] Chest pain, unspecified type documented in this [...] melanoma of skin [facility] Diagnosis Basal cell carcinoma of skin of scalp and neck- Primary documented [facility] this encounter [facility]* Diagnosis Mohs defect of neck documented [facility] this [facility]* Diagnosis Coronary artery disease involving qawalangin coronary artery of qawalangin heart without angina pectoris Bradycardia Other specified [...] [facility] Evaluation note* Diagnosis Mohs defect of neck- Primary documented [facility] this encounter [facility]* Diagnosis Seborrheic keratosis- Primary Lentigines Actinic keratosis History of malignant melanoma of skin Personal history of malignant melanoma of skin documented [facility] this encounter [facility]* Diagnosis Mohs defect of neck- Primary documented in this encounter [facility] HealthcareHistory and physical note Author Karol Sage [facility] October 28, 2022 11:21pm Note Date/Time October 28, 2022 11:01p m [facility] [address] [place] [address] Hospitalist H&P Signed Patient: Valentín Buckner MR#: [id number] : 1940 Acct:[id number] Age/Sex: 82 / M Adm Date: 3 Loc: Room: [address] [place] [address] Type: ADM INOo Attending Dr: Karol Sage [...] negative unless noted below or in HPI [facility] Vaccinated for COVID-19?: Unknown Medical History Bulging [...] % (Auto) 24.4 % (.) 10/28/22 21:10 Bracken % (Auto) 11.8 % (.) 10/28/22 21:10 Eos % (Auto) 0.9 % (.) 10/28/22 21:10 Baso % (Auto) 0.4 % (.) 10/28/22 21:10 Nucleat RBC Rel Count 0.0 /100 WBC (0-0.5) 10/28/22 21:10 Neut # (Auto) 5.6 x10E3/uL (1.8-7.7) 10/28/22 21:10 Lymph # (Auto) 2.2 x10E3/uL (1.00-4.8) 10/28/22 21:10 Bracken # (Auto) 1.0 x10E3/uL (0.0-0.8) H 10/28/22 [...] MD Milly Documented By: Karol Sage MD 10/28/223 Signed By: <Electronically signed by Karol Sage MD> 10/28/221 <Electronically signed by DO NANDINI Pena> 10/28/22 2315 [facility] Work Phone: History general Narrative [...] LAD 2015 Hospitalization History SEE SURGICAL HX [employer] Other History general Narrative - Reported* Type [...] bx 03/2023 Hospitalization History SEE SURGICAL HX [employer] Other History of Present illness Narrative* The [...] medication regimen. He denies medication side effects. [facility] [employer] 250 DO Work Phone: History of Present [...] medication regimen. He denies medication side effects. [facility] [employer] FinanceWest[place] 600 DO Work Phone: History of Present illness Narrative* Patient returns in follow-up of problems as noted. This first time I am seeing him. In the past he was under the care of Dr. Baron and Florence Aden for coronary disease with intervention. Recently he is having problems with paroxysmal atrial fibrillation and bradycardia. Ultimately he was switchedto amiodarone with denominational of sinus rhythm, today, and a better [...] in several months and make additional recommendations. -[facility] [employer] 250 DO Work Phone: History of Present illness Narrative* Patient returns in follow-up of problems as noted. This first time I am seeing him. In the past he was under the care of Dr. Baron and Florence Aden for coronary disease with intervention. Recently he is having problems with paroxysmal atrial fibrillation and bradycardia. Ultimately he was switchedto amiodarone with denominational of sinus rhythm, today, and a better [...] in several months and make additional recommendations. -[facility] [employer] DO Work Phone: History of Present illness Narrative* The patient states he has been generally doing well since the last visit. Comorbid Illnesses: hypertension and hyperlipidemia. * Symptoms: denies chest pain at rest, denies exertional chest pain, denies dyspnea, stable fatigue, denies exercise intolerance, denies palpitations, denies edema, resolved dizziness and denies orthostatic dizziness. * Associated symptoms: no syncope. * Disease Monitoring: -[facility] [employer] 250 DO Work Phone: History of Present [...] medication regimen. He denies medication side effects. -[facility] [employer] 250 DO Work Phone: History of Present [...] medication regimen. He denies medication side effects. -[facility] [employer] 250 DO Work Phone: Hospital Discharge instructions [...] if you have any problems. -Office number [phone] Work Phone: Hospital Discharge instructionsAmbulatory Orders* Breath test for SIBO Time Frame: 02/02/24, Location: None Selected [facility] Work Phone: Progress note No data available for this section [facility] reason for referral (narrative)* Reason Referral for Fe defi ciency anemia and GERD Diagnosis 1 Gastroesophageal ref lux disease with esophagitis without hemorrhage (K21.00) Referral Organization [facility] Referring Provider First Name Irving Referring Provider Last Name Rola Referring Provider Specialty Internal Me dicine Referred Organization [facility] Gastroenterolo gy Referred Provider Michael Bahena Referred Address [address] [place] [id number] Referred Provider Specialty Gastroentero logy Referral Priority Routine [facility] Other Summary Purpose Family History Unknown Family [...] February 1:38pm Hospital Course Note MR#: [id number] 2[facility] Pt. Name: Valentín Buckner Admitted: 05/09/2018 Discharged: 05/10/2018 Date of : 1940 Physician: Anna Hoyt MD [facility] PH[facility]ICIAN: Dr. Irving Canela.PRINCIPAL PROBLEM:1. Chest pain, rule out acute coronary syndrome.2. History of CAD status post stents.3. Hypertension, well controlled.4. Unspecified dyslipidemia.CONSULTANTS: Cardiology.HOSPITAL COURSE: This is a 77-year-old male, who was seen at [facility] for concern for unstable angina. The patient reports a 3-4 dayhistory of jaw pain and some slight shortness of breath. He said therewere no aggravating factors. He states that he did have an NSTEMI in 2014with a subsequent stent to his RCA as well as stent to his LAD in 2016. Hestated at that time he did not have the typical chest pain symptoms aswell. [facility]up [facility] revealed an EKG that was normal andnormal troponin. However, given the patient's cardiac history, they feltthat i (more content not included)... Chief Complaint * VALENTÍN BUCKNER is being seen for follow-up of a hospitalization for. * Patient is a 80-year-old gentleman returns from recent small non-ST elevation AR associated with small branch disease of the [...] Ceja MD for review.Amiodarone Order sent to [facility] [place] testing due in October VALENTÍN BUCKNER [...] has had a previous small non-ST elevation AR in May 2021 associated with a small [...] in 6 months Amiodarone Order sent to [facility] for testing due in FebruaryAmiodarone Order sent to [facility] for testing due in July 19Amiodarone Order sent to [facility] for testing due in September* Hospital f/u: 'doing ok' * VALENTÍN BUCKNER is being seen for follow-up of a hospitalization for dizziness. * Patient presents to the office ambulatory steady gait, is accompanied by his . Last evaluated in clinic Dr. Baron June 2022. At that time dose of amiodarone reduced 100 mg daily. * October 2022 presented to [facility] due to dizziness. Seen in consultation by [...] day of admit he was at the [employer] course, when he raised up he felt [...] We will proceed with 14-day [employer]. At this time amiodarone has been reduced [...] bradycardia and he completed a 14-day [employer]. Results reviewed including no evidence of high-grade [...] Primary insomnia July 19, 2024 1 1:23am Chief Complaint Admit Date cough w yellow/green mucus, phlegm Janua ry 2024 1:46pm 4 month f/u July 19, 2024 1 1:23am Amb Documentation July 30, 2024 3 :12pm i48.0 z79.899 August 28, 2024 3:07 pm i48.0 z79.899 August 28, 2024 7:28 pm Reason for Visit Admit Date Essential hypertension July 10 1:46pm Chronic obstructive [...] Primary insomnia July 19, 2024 1 1:23am Chief Complaint Admit Date cough w yellow/green mucus, phlegm Janua ry 2024 1:46pm 4 month f/u July 19, 2024 1 1:23am Amb Documentation July 30, 2024 3 :12pm i48.0 z79.899 August 28, 2024 3:07 pm i48.0 z79.899 August 28, 2024 7:28 pm right tendon heel pain September 19, 2024 8:54am Reason for Referral Specialty Diagnoses / Procedures Referred By Contac t Referred To Contact Cardiology Diagnoses Chest pain, unspecified type Procedures Nuclear Stress Test CHG MYOCARDIAL SPECT MULTIPLE STUDIES Brendon Baron, DO [address] [place] [address] Referral ID Status Reason Start Date Expiration Date Visits Requested Visits Authorized [id number] Pending Review Perform Procedure 12/28/2023 12/27/2024 5 5 Specialty Diagnoses / Procedures Referred By Contac t Referred To Contact Diagnoses Paroxysmal atrial fibrillation (Multi) Procedures ECG 12 Lead Brendon Baron, DO [address] [place] [address] Referral ID Status Reason Start Date Expiration Date V isits Requested Visits Authorized [id number] Authorized 12/28/2023 12/27/2024 1 1 Specialty Diagnoses / Procedures Referred By Contac t Referred To Contact Cardiology Diagnoses Coronary artery disease involving qawalangin coronary artery of qawalangin heart without angina pectoris Procedures Follow Up In Cardiology Brendon Braon, DO [address] [place] [address] Brendon Baron, DO [address] [place] [address] Referral ID Status Reason Start Date Expiration Date V isits Requested Visits Authorized [id number] Authorized 12/28/2023 12/27/2024 1 1 Specialty Diagnoses / Procedures Referred By Contac t Referred To Contact Diagnoses Bradycardia Procedures ECG 12 Lead Brendon Baron, DO [address] [place] [address] Referral ID Status Reason Start Date Expiration Date V isits Requested Visits Authorized [id number] Authorized 07/25/2023 07/24/2024 1 1 Specialty Diagnoses / Procedures Referred By Contbasil t Referred To Contact Cardiology Diagnoses Bradycardia H/O non-ST elevation myocardial infarction (NSTEMI) S/P PTCA (percutaneous transluminal coronary angioplasty) Procedures Follow Up In Cardiology Brendon Baron, DO [address] [place] [address] Brendon Baron, DO [address] [place] [address] Referral ID Status Reason Start Date Expiration Date V isits Requested Visits Authorized [id number] Authorized 07/25/2023 07/24/2024 1 1 Additional Source Comments (unrecognized sect ion and content) No Status Records FoundNo Status Records FoundNo Status Records FoundNo Status Records FoundNo Status Records FoundNo Status Records FoundNo Status Records FoundNo Status Records FoundNo Status Records Found INFORMATION SOURCE (unrecogn ized section and content) DATE CREATED AUTHOR 06/18/2018 [facility] DATE CREATED AUTHOR AUTHOR'S ORGANIZ ATION 10/24/2022 [facility] DATE CREATED AUTHOR AUTHOR'S ORGANIZ ATION 03/31/2023 [facility] DATE CREATED AUTHOR AUTHOR'S ORGANIZ ATION 04/01/2023 [employer] DATE CREATED AUTHOR AUTHOR'S ORGANIZ ATION 01/09/2024 [facility] DATE CREATED AUTHOR AUTHOR'S ORGANIZ ATION 02/15/2024 [facility] DATE CREATED AUTHOR AUTHOR'S ORGANIZ ATION 08/31/2024 [facility] EPIC DATE CREATED AUTHOR AUTHOR'S ORGANIZ ATION 08/31/2024 [facility] DATE CREATED AUTHOR AUTHOR'S ORGANIZ ATION 09/02/2024 [facility] Reason for Visit (unrecogniz ed section and content) Reason Comments Annual Exam Reason Comments Breath Hydrogen Test SIBO Hydrogen Breat h Test Results. Reason Comments Skin Check Reason Comments Follow-up [facility] 12/15 Specialty Diagnoses / Procedures Referred By Contac t Referred To Contact Cardiology Diagnoses Chest pain, unspecified type Procedures Nuclear Stress Test CHG MYOCARDIAL SPECT MULTIPLE STUDIES Brendon Baron, [address] [facility] 2, [address] [address] Referral ID Status Reason Start Date Expiration Date Visits Requested Visits Authorized [id number] Pending Review Perform Procedure 12/28/2023 12/27/2024 5 5 Reason Comments Mohs Micrographic Surgery Reason Comments Mohs Reconstruction New patient [facility] Specialty Diagnoses / [facility] Otolaryngology Diagnoses Basal cell carcinoma of skin of scalp and neck Procedures [place] OFFICE/OUTPATIENT NEW HIGH MDM 60 MINUTES Pedro [place] MD [address] [facility] [address] [id number] Phone: tel: fax: Irving Fonseca, DO [address] [facility] [address] [id number] Phone: tel: fax: Referral ID Status Reason Start Date Expiration Date V isits Requested Visits Authorized [id number] Closed Specialty Services Required 07/19/2024 01/15/2025 1 1 Reason Comments Annual Exam Specialty Diagnoses / Procedures Referred By [facility] t Referred To Contact Cardiology Diagnoses Bradycardia H/O non-ST elevation myocardial infarction (NSTEMI) S/P PTCA (percutaneous transluminal coronary angioplasty) Procedures Follow Up In Cardiology TodBrendon rodriguez, [address] [place] [address] 2, [address] [address] Phone: tel: fax: Brendon Baron, [address] [place] [address] 2, [address] [address] Phone: tel: fax: Referral ID Status Reason Start Date Expiration Date V isits Requested Visits Authorized [id number] Authorized 07/25/2023 07/24/2024 1 1 Reason Comments Mohs defect of neck Mohs defect of neck Reason Comments Post-op 1 month mindi Care Teams (unrecognized sec tion and content) [...] Canela DO Primary Care Provider Active Markell Hines MD Attending Provider Active Paper Cone Maker Relationship Specialty Start Date End Date Rola Irving DO Mariel PCP - General 06/27/99 Team Status: Inactive [...] March 19, 2024 End: March 19, 2024 Paper Cone Maker Relationship Specialty Start Date End Date Irving Canela DO [address] [place] [address] PCP - General Internal Medicine 03/29/24 Team Status: Active Member Role Status Dates NON STAFF Primary Care Provider Active Start: April 11, 2024 Miriam Juarez MD Attending Provider Active St art: April 11, 2024 Paper Cone Maker Relationship Specialty Start Date End Date Irving Canela DO PCP - General 06/27/99 Paper Cone Maker Relationship Specialty Start Date End Date Irving Canela DO [address] [place] [address] PCP - General Internal Medicine 12/28/23 Paper Cone Maker Relationship Specialty Start Date End Date Irving Canela DO [address] [place] [address] PCP - General Internal Medicine 12/28/23 Paper Cone Maker Relationship Specialty Start Date End Date Irving Canela DO [address] [place] [address] PCP - General Internal Medicine 12/28/23 Paper Cone Maker Relationship Specialty Start Date End Date Irving Canela DO [address] [place] [address] PCP - General Internal Medicine 12/28/23 Paper Cone Maker Relationship Specialty Start Date End Date Irving Canela MD [address] [place] [address] PCP - General Internal Medicine 07/23/24 Paper Cone Maker Relationship Specialty Start Date End Date Irving Canela MD [address] [place] [facility] [place] [id number] PCP - General Internal Medicine 07/23/24 Paper Cone Maker Relationship Specialty Start Date End Date Irving Canela DO [address] [place] [address] PCP - General Internal Medicine 12/28/23 Paper Cone Maker Relationship Specialty Start Date End Date Irving Canela MD [address] [place] [facility] [place] [address] PCP - General Internal Medicine 07/23/24 Pedro [place] MD [address] [place] [address] Referring Physician Dermatology 08/01/24 Irving Fonseca DO [address] [place] [address] Otolaryngology 08/01/24 Paper Cone Maker Relationship Specialty Start Date End Date Irving Canela MD [address] [facility] [place] [address] PCP - General Internal Medicine 07/23/24 Pedro [place] MD [address] [place] [address] Referring Physician Dermatology 08/01/24 Irving Fonseca DO [address] [place] [address] Otolaryngology 08/01/24 Paper Cone Maker Relationship Specialty Start Date End Date Irving Canela MD [address] [place] [phone] PCP - General Internal Medicine 07/23/24 Pedro [place] MD [address] [place] [address] Referring Physician Dermatology 08/01/24 Irving Fonseca, [address] [place] [address] Otolaryngology 08/01/24 Paper Cone Maker Relationship Specialty Start Date End Date Irving Canela MD [address] [place] [id number] PCP - General Internal Medicine 07/23/24 Pedro [place] MD [address] [place] [address] Referring Physician Dermatology 08/01/24 Irving Fonseca DO [address] [place] [address] Otolaryngology 08/01/24 Team Status: Active Member Role Status Dates Irving Canela DO Primary Care Provider Active Start: July 26, 2024 Alfred Baron DO Attending Provider Active S tart: July 26, 2024 Team Status: Active Member Role Status Dates Irving Canela DO Primary Care Provider Active Start: July 27, 2024 Elliott Vieira DO Attending Provider Active Start : July 27, 2024 Team Status: Active Member Role Status Dates Irving Ball , DO Primary Care Provide r, Attending Provider Active Start: July 27, 2024 Team Status: Active Member Role Status Dates Irving Canela , DO Primary Care Provider Active Start: July 30, 2024 Clare Lipscomb CMA Attending Provider Active Start: July 30, 2024 Team Status: Inactive Member Role Status Dates Irving Canela , DO Primary Care Provider Active Start: August 28, 2024 End: August 28, 2024 Alfred Baron DO Attending Provider Active S tart: August 28, 2024 End: August 28, 2024 Team Status: Active Member Role Status Dates Irving Canela , DO Primary Care Provider Active Start: August 28, 2024 Alfred Baron , Other Provider Active Start : August 28, 2024 Monty Cruz MD Attending Provider Active Start: August 28, 2024 Team Status: Inactive Member Role Status Dates Irving Canela , DO Primary Care Provide r, Attending Provider Active Start: September 19, 2024 End: September 19, 2024 Goals (unrecognized section and content) Goals [...] or prosecute any alcohol or drug abuse patient.[facility] FOR RECORDS PERTAINING TO PATIENTS WHO ARE [...] BE BASED ON THE PRIMARY CLINICAL RECORDS. [facility] [employer] [facility]. provides no warranty or guarantee of the accuracy or completeness of information in this document.
[2024-09-25 11:02] LABS: Percent Iron Saturation 42.4 %
[2024-09-26 02:08] LABS: Vitamin B12 675 pg/mL (232-1245)
== END 2024-09-25 10:13 | disposition home or self-care (01) ==
LOC: LAB 10:12
PROVIDERS: PCP Internal Medicine; Visit Provider Internal Medicine Hematology & Oncology
DX: D50.9 Iron deficiency anemia, unspecified (principal); K90.9 Intestinal malabsorption, unspecified; D64.9 Anemia, unspecified
CPT/HCPCS: 36415; 82607; 82728; 83540; 83550

== ENCOUNTER 2024-10-01 08:55 | Outpatient (OUT) | payer MEDICARE, OTHER, SELFPAY ==
[2024-10-01 09:26] LABS: Basophils Percent Auto 0.2 % (0.2-2.0); Eosinophils Absolute Auto 0.2 10^3/uL (0.0-0.7); Eosinophils Percent Auto 2.1 % (0.9-7.0); Hematocrit 50.9 % (42.0-54.0); Hemoglobin 16.9 g/dL (14.0-18.0); Immature Granulocytes Abs Auto 0.01 10^3/uL (0.00-0.03); Immature Granulocytes Pct Auto 0.1 % (0.0-0.5); Lymphocytes Percent Auto 24.6 % (20.5-60.0); Mean Corpuscular HGB Conc 33.2 g/dL (29.9-35.2); Mean Corpuscular Hemoglobin 31.5 pg (25.9-34.0); Mean Corpuscular Volume 94.8 fL (80.0-94.0); Mean Platelet Volume 9.8 fL (9.5-13.5); Monocytes Percent Auto 11.7 % (1.7-12.0); Neutrophils Percent Auto 61.3 % (43.0-75.0); Platelet Count 184 10^3/uL (150-450); Red Blood Count 5.37 10^6/uL (4.70-6.10); Red Cell Distribution Width 13.3 % (11.0-15.0); White Blood Count 8.1 10^3/uL (4.0-11.0)
[2024-10-01 10:14] LABS: Anion Gap 9.7; BUN Creatinine Ratio 18.3; Carbon Dioxide 31.6 mmol/L (21.0-32.0); Chloride 104 mmol/L (98-107); Estimated GFR (African America >60 (>=60 mL/min/1.73m^2); Estimated GFR (Non-African Ame >60 (>=60 mL/min/1.73m^2); Glucose 92 mg/dL (74-106); Potassium 4.3 mmol/L (3.5-5.1); Sodium 141 mmol/L (136-145)
== END 2024-10-01 08:56 | disposition home or self-care (01) ==
LOC: LAB 08:56
PROVIDERS: PCP Internal Medicine; Visit Provider Internal Medicine Hematology & Oncology
DX: D50.9 Iron deficiency anemia, unspecified (principal); K90.9 Intestinal malabsorption, unspecified; D64.9 Anemia, unspecified
CPT/HCPCS: 36415; 80048; 85025

== ENCOUNTER 2024-10-23 07:38 | Outpatient (RCR) | payer MEDICARE, OTHER, SELFPAY | END 2024-10-24 23:59 | disposition home or self-care (01) | LOC: HEMC 07:38 | PROVIDERS: PCP Internal Medicine; Visit Provider Internal Medicine Hematology & Oncology | DX: D50.9 Iron deficiency anemia, unspecified (principal); K90.9 Intestinal malabsorption, unspecified; D64.9 Anemia, unspecified; Z79.01 Long term (current) use of anticoagulants; K21.9 Gastro-esophageal reflux disease without esophagitis; R19.7 Diarrhea, unspecified; R14.0 Abdominal distension (gaseous) | CPT/HCPCS: G0463 ==

== ENCOUNTER 2025-03-01 14:41 | Outpatient (OUT) | payer MEDICARE, OTHER, SELFPAY ==
--- OUTSIDE RECORDS SUMMARY | 2025-03-01 14:52 | XMS_ITS | CCD ---
Author Organization [facility]iniSywa Care Team Providers Care Freezer Laboratory Technician Name Role Phone AHMED, ANNA Unavailable Unavailable AHMED, ANNA Unavailable Unavailable BALL, IRVING Unavailable Unavailable AHMED, ANNA Unavailable Unavailable PHYSICIAN, DEFAULT Unavailable Unavailable PHYSICIAN, DEFAULT Unavailable Unavailable ROLA, IRVING Unavailable Unavailable Rola, Irving E Unavailable Unavailable Unavailable Rola, DO Villatoro Primary Care Provider [phone] DO Alfred Baron Attending Provider [phone] Rola, DO Villatoro Primary Care Provider [phone] DO Alfred Baron Attending Provider [phone] Irving Canela Unavailable Rola, DO Villatoro Primary Care Provider [phone] DO Alfred Baron Attending Provider ROLA, DR [...] Unavailable BALL, DR VILLATORO Primary Care Unavailable GUNNISON, DR KIKA Carranza Consulting Unavailable EUBANKS, DR [...] Emergency Provider MD Karol Sage Admit Provider [phone] MD Karol Sage Attending Provider Markell Hines Unavailable [phone] DO Irving Canela Primary Care Provider [phone] DO Alfred Baron Attending Provider [phone] Dr. Irving Canela Primary Care Hayden Baron, [...] Primary Care Hayden Aden, Florencecatalina Vergara Referring Unavai labama Rola, Dr. Irving Dumont Primary Care Hayden Aden, MsPam Vergara Attending Hayden Aden, Florencecatalina Vergara Referring Unavai labama Rola, Dr. Irving Dumont Primary Care Hayden Aden, MsPam Vergara Attending Hayden Aden, Ms. Florence Vergara Referring Beatrisvai labama Rola, Dr. Irving Dumont Primary Care Hayden [...] Primary Care Provider Pedro Wagner MD Unavailable [phone] Irving Fonseca DO Unavailable [phone] BRENDON BARON Attending Unavailable IRVING CANELA Primary Care Unavailable BRENDON BARON Attending Unavailable BRENDON BARON Referring Unavailable IRVING CANELA Primary Care Unavailable Irving Canela Primary Care Unavailable Asaad, Imad Admitting Unavailable Asaad, Imad Attending Unavailable Ann, Miriam Admitting Unavailable Ann Miriam Attending Unavailable Alferd Baron Attending Unavailable Alfred Baron Admitting Unavailable Irving Canela Primary Care Unavailable Irving Canela DO Primary Care Provider [phone] Alfred Baron DO Attending Provider PEDRO WAGNER Attending Unavailable IRVING FONSECA Attending Unavailable PEDRO WAGNER Referring Unavailable MURIRVING RODARTE Attending Unavailable MURASTER, IRVING Simon Attending Unavailable PEDRO WAGNER Referring Unavailable PETITTI, BASHIR Buchanan Attending Unavailable IRVING FONSECA Attending Unavailable PEDRO WAGNER Referring Unavailable PETITTI, BASHIR A Attending Unavailable PETITTI, BASHIR A Attending Unavailable PETITTI, BASHIR A Attending Unavailable Irving Canela DO Primary Care Provider Allergies Allergy Classification Reported Allergen(s) Allergy Type Date of Onset Reaction(s) Facility (3 sources) clopidogrel; Translations: [Plavix] Drug Allergy 6 [facility] (1 source) Ticagrelor Drug Allergy 6 [facility] (20 sources) clopidogrel; Translations: [Plavix] Drug Allergy 7 Rash, Eruption of skin (disorder), Hives, Other [facility] (9 sources) clopidogrel; Translations: [CLOPIDOGREL] Drug Allergy 1 [facility] (1 source) prasugrel Drug Allergy [facility] (20 sources) prednisoLONE Drug Allergy 3 [facility] Medications Current Medications Medication Drug Class(es) Dates Sig (Normalized) Sig (Original) ALPRAZolam 0.25 mg oral tablet (20 sources) Benzodiazepine Start: 03-20-2019 take 4 tablets by mouth three times daily alprazolam 0.25 mg Tab mg tab(s), Oral, TID, Refills(s) 0 Start Date: 03/20/19 Status: Ordered ALPRAZolam (Xana x) 0.25 MG tablet Active amiodarone hydrochloride 100 mg oral tablet [...] 01-05-2022 amiodarone (Pa cerone) 200 MG tablet 10/15/2022 Active Start: 01-05-2022 amiodarone (Pa cerone) 200 MG tablet TAKE 1/2 TABLET BY MOUTH TUESDAY THROUGH TUESDAY ONLY 10/15/2022 Active Start: 10-07-2021 take 1 tablet by [...] Orally Once a day October, Active Start: 03-20-2019 End: 11-29-2024 take 1 tablet by mouth once daily [...] MG PO Daily June 12, 2021 1:00am aspirin 81 MG ch ewable tablet Active take 1 tablet by tavo th once daily Aspirin EC 81 MG Oral Tablet Delayed Release TAKE 1 TABLET DAILY. Quantity: 90 Refills: 3 Ordered: 02-Sep-2021 DO Active atorvastatin 40 mg oral tablet (20 sources) HMG-CoA Reductase Inhibitor Start: 10-29-2024 take 1 tablet by mouth once daily at bedtime Atorvastatin 40 mg tablet Active 40 MG PO Daily at bedtime October 29, 2024 12:00am Start: 10-29-2022 End: 10-29-2024 Atorvastatin 80 mg tablet Discontinued 40 MG PO Daily at bedtime October 29, 2022 12:21am October 29, 2024 10:40am Start: 10-29-2022 take 40 mg by mouth once daily at bedtime Atorvastatin Active 40 MG PO Daily at bedtime October 29, 2022 12:21am Start: 01-05-2022 End: 07-24-2024 take 1 tablet by mouth at bedtime atorvastatin (Lipitor) 40 MG tablet Take 40 mg by mouth at bedtime 12/31/2022 Active Start: 06-13-2021 End: 10-29-2022 take [...] 12:21pm take 1 tablet by tavo th once daily atorvastatin (Lipitor) 10 MG tablet Take 1 tablet by mouth Daily Active cephalexin 500 mg oral capsule (17 sources) Cephalosporin Antibacterial Start: 07-19-2024 take 1 capsule by mouth twice daily cephalexin (Keflex) 500 MG capsule Indications: Basal cell carcinoma of skin of scalp and neck Take 1 capsule, by mouth, bid, 10 days 20 capsule 07/19/2024 Active codeine phosphate 2 mg/ml / guaiFENesin 20 mg/ml oral solution (20 sources) Opioid Agonist guaiFENesin-code in e (Robitussin-AC) 100-10 MG/5ML syrup Active doxycycline hyclate 100 mg oral capsule (14 sources) Tetracycline-class Drug Start: 11-30-2024 take 1 capsule by mouth twice daily Doxycycline Hyclate 100 mg capsule Active 100 MG PO Twice daily November 30, 2024 12:00am Start: 05-17-2024 End: 09-19-2024 take 1 capsule by mouth twice daily Doxycycline Hyclate 100 mg capsule Discontinued 100 MG PO Twice daily 14 July 10, 2024 3:38pm September 19, 2024 8:56am hydrocortisone acetate 10 mg/ml topical cream (20 sources) Corticosteroid Start: 02-14-2024 Hydrocortisone Acetate 1 % cream Indications: Drug-induced photosensitivity Apply thin layer to affected areas, twice a day as needed for flares, 30 day supply 28.4 g 11 02/14/2024 Active Inhalational Spacing Device (Aerochamber Mini) spacer (6 sources) Start: 07-10-2024 Inhalational S pacing Device (Aerochamber [...] release 24 hr Active 0 .ROUTE .COMPLEX March 26, 2024 12:37pm TAKE 1 TABLET [...] tablet by mouth in the morning. 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 Active Completed/Discontinued Medications Medication Drug Class(es) Dates Sig (Normalized) Sig (Original) amitriptyline hydrochloride 10 mg oral tablet (20 sources) Tricyclic Antidepressant Start: 09-13-2023 End: 10-17-2023 take 1 tablet by mouth once daily at bedtime Amitriptyline 10 mg tablet Discontinued 10 MG PO Daily at bedtime September 13, 2023 12:00am October 17, 2023 2:29pm 120 actuat budesonide 0.08 mg/actuat / formoterol fumarate 0.0045 mg/actuat metered dose inhaler (6 sources) Corticosteroid, beta2-Adrenergic Agonist Start: 07-10-2024 End: 10-29-2024 take 1 puff(s) by inhalation every twelve hours Budesonide-Formoter ol 80-4.5 mcg/actuation HFA aerosol inhaler Discontinued 2 PUFF INHALATION Every 12 hours 10.2 30 July 10, 2024 1:00am October 29, 2024 10:41am cholecalciferol 0.05 mg oral capsule (20 sources) [...] 14 days. 40 g 06/21/2023 07/22/2024 Discontinued 24 hr metoprolol succinate 50 mg extended [...] 07-22-2024 Tamiflu 75 MG capsule 07/22/2024 Discontinued rifAXIMin 550 mg oral tablet (16 sources) Rifamycin Antibacterial Start: 05-01-2024 End: 10-29-2024 take 1 tablet by mouth three times daily Rifaximin 550 mg tablet Discontinued 550 MG PO Three times daily May 07, 2024 10:37am October 29, 2024 10:42am sulfamethoxazole 800 mg / trimethoprim 160 mg oral tablet (12 sources) Dihydrofolate Reductase Inhibitor Antibacterial, Sulfonamide Antimicrobial Start: 11-15-2023 End: 02-02-2024 take 1 tablet by mouth twice daily Sulfamethoxazole-Tr imethoprim 800-160 mg tablet Discontinued 1 TAB PO [...] 2021 1:00am October 29, 2022 12:18am Zinc (20 sources) Start: 06-12-2021 End: 04-21-2023 take 1 [...] MG PO Daily June 12, 2021 1:00am zolpidem tartrate 5 mg oral tablet (20 sources) gamma-Aminobutyric Acid-ergic Agonist Start: 05-17-2024 End: 09-19-2024 take 1 tablet by mouth once daily at bedtime as needed Zolpidem 5 mg tablet Discontinued 5 MG PO Daily at bedtime as needed for insomnia August 20, 2024 10:19am September 19, 2024 9:34am Problems Active Problems Problem Classification Problem Date [...] Chronic Chronic obstructive pulmonary disease and bronchiectasis (12 sources) Chronic bronchitis; Translations: [Unspecified chronic bronchitis] 07-10-2024 Chronic Conditions associated with dizziness or vertigo (8 sources) Dizziness; Translations: [Dizziness and giddiness] 10-28-2022 Episodic Coronary atherosclerosis and other heart disease (20 sources) Unstable angina; Translations: [Old myocardial infarction] Onset: 5 Resolved: 5 06-13-2021 Chronic Comment on above: PCI/stent x 3 - [facility] , 05/2021 Deficiency and other anemia (17 sources) Iron deficiency anemia due to blood loss; Translations: [Iron deficiency anemia secondary to blood loss (chronic)] 09-14-2023 Chronic Deficiency and other anemia (17 sources) Iron deficiency anemia secondary to blood [...] (1 source) Anemia, unspecified Episodic Disorders of teeth and jaw (1 source) [...] anus and rectum] Episodic Headache; including migraine (20 sources) Episodic tension-type headache; Translations: [Episodic tension-type headache, not intractable] 09-13-2023 Chronic Immunizations and screening for infectious disease (4 sources) Vaccination given; Translations: [Encounter for immunization] Episodic Inflammatory conditions of male genital organs (12 sources) Orchitis; Translations: [Orchitis] 11-15-2023 Episodic Influenza (4 sources) Influenza due to Influenza A virus with upper respiratory signs; Translations: [Influenza due to other identified influenza virus with other respiratory manifestations] Episodic Melanomas of skin (20 sources) Malignant melanoma; Translations: [Malignant melanoma of skin, unspecified] Onset: 5 Resolved: 5 09-13-2023 Chronic Melanomas of skin (9 sources) Personal history of malignant melanoma of [...] neck] 07-23-2024 Episodic Other aftercare (1 source) long term (current) use of aspirin; Translations: [MCFP (CURRENT) USE OF ASPIRIN] Onset: 8 Episodic [...] colon] Episodic Other and unspecified benign neoplasm (15 sources) Adenomatous polyp of colon ; Translations: [Benign neoplasm of descending colon] 09-13-2023 Episodic Other circulatory disease (20 sources) Cardiac function test normal; Translations: [Normal cardiac ejection fraction] Episodic Other circulatory disease (20 sources) Cardiovascular symptoms; Translations: [Other specified symptoms and signs involving the circulatory and respiratory systems] Episodic Other connective tissue disease (2 sources) Right achilles tendonitis; Translations: [Achilles tendinitis, right leg] 09-19-2024 Episodic Other gastrointestinal disorders (20 sources) Irritable bowel syndrome with diarrhea; Translations: [Irritable bowel syndrome with diarrhea] 09-13-2023 Chronic Other gastrointestinal disorders (18 sources) Irritable bowel syndrome with diarrhea; Translations: [Irritable bowel syndrome] Chronic Other gastrointestinal disorders (4 sources) Irritable bowel syndrome characterized by constipation; Translations: [Irritable bowel syndrome with constipation] Onset: 8 Chronic Other gastrointestinal disorders (2 sources) Irritable bowel syndrome; Translations: [Irritable bowel syndrome without diarrhea] 10-29-2024 Chronic Other gastrointestinal disorders (3 sources) Irritable bowel syndrome without diarrhea; Translations: [Irritable bowel syndrome] 10-29-2024 Chronic Other gastrointestinal disorders (4 sources) Fecal [...] digestive system] 04-21-2023 Episodic Other gastrointestinal disorders (12 sources) Loose stool; Translations: [Other fecal abnormalities] 10-17-2023 Episodic Other gastrointestinal disorders (12 sources) Disorder of gastrointestinal tract; Translations: [Other specified diseases of the digestive system] 10-17-2023 Episodic Other gastrointestinal disorders (12 sources) Urgent desire for stool; Translations: [Fecal urgency] 10-17-2023 Episodic Other gastrointestinal disorders (3 sources) Other specified diseases of the digestive system; Translations: [Other specified disorders of intestine] 10-17-2023 Episodic Other gastrointestinal disorders (3 sources) Other fecal abnormalities; Translations: [Abnormal feces] 10-17-2023 Episodic Other gastrointestinal disorders (12 sources) Small bowel bacterial overgrowth syndrome; Translations: [...] abnormalities] 10-28-2022 Episodic Other lower respiratory disease (15 sources) Nodule of lung; Translations: [Solitary pulmonary nodule] 09-13-2023 Episodic Comment on above: PFT: FEV1/FVC 70, FE V1 115%, TLV 113%, DLCO 144% - 08/2024 Other lower respiratory disease (1 source) Solitary pulmonary nodule; Translations: [Solitary pulmonary nodule] 11-16-2024 Episodic Other nervous system disorders (11 sources) Hereditary disorder of nervous system; Translations: [Hereditary and idiopathic neuropathy, unspecified] Chronic Other nervous system disorders (1 source) Other chronic pain; Translations: [OTHER CHRONIC PAIN] Onset: 2 Chronic Other nervous system disorders (15 sources) Neuropathy; Translations: [Hereditary and idiopathic neuropathy, [...] conditions (not mental disorders or infectious disease) (9 sources) Blood chemistry abnormal; Translations: [Other specified abnormal findings of blood chemistry] Resolved: 2 09-06-2024 Episodic Comment on above: PSA: <0.1 - 08/2024 Other skin disorders (8 sources) Seborrheic keratosis; Translations: [Other seborrheic keratosis] 05-21-2024 Episodic Other skin disorders (8 sources) Lentiginosis; Translations: [Other melanin hyperpigmentation] 05-21-2024 Episodic Other skin disorders (8 sources) Actinic keratosis; Translations: [Actinic keratosis] 05-21-2024 Episodic Other skin disorders (2 sources) Papule of skin; Translations: [Other skin changes] 11-29-2024 Episodic Other upper respiratory disease (11 sources) [...] [Localized edema] 09-13-2023 Episodic Residual codes; unclassified (7 sources) Insomnia; Translations: [Insomnia, unspecified] 05-17-2024 Episodic Residual codes; unclassified (3 sources) Insomnia, unspecified; Translations: [Insomnia, unspecified] 05-17-2024 [...] [Lumbar pain] 09-13-2023 Episodic Sprains and strains (10 sources) Strain of biceps brachii muscle and/or [...] 04-13-2021 02-14-2024 Episodic Blindness and vision defects (15 sources) Bilateral regular astigmatism; Translations: [Regular astigmatism, [...] angioplasty] Onset: 05-09-2018 Resolved: 07-22-2024 10-28-2022 Episodic Disorders of lipid metabolism (20 sources) Hyperlipidemia, unspecified; Translations: [Mixed hyperlipidemia] Onset: 03-26-2015 Resolved: 07-22-2024 06-13-2021 Chronic E Codes: Adverse effects of medical drugs (4 sources) Adverse effect of antithrombotic drugs, initial encounter; Translations: [Adverse effect of antithrombotic drugs, initial encounter] Onset: 06-14-2016 Episodic Esophageal disorders (2 sources) Esophageal disorders Genitourinary symptoms and ill-defined conditions (16 sources) Urge incontinence of urine; Translations: [Urge incontinence] Onset: 07-22-2024 Resolved: 07-22-2024 07-04-2020 Chronic Genitourinary symptoms and ill-defined conditions (20 sources) Dysuria; Translations: [Dysuria] Onset: 07-14-2018 Resolved: 07-22-2024 07-06-2019 Episodic Hypertension with complications and secondary hypertension (4 sources) Malignant hypertensive chronic kidney disease; Translations: [Hypertensive chronic kidney disease with stage 1 through stage 4 chronic kidney disease, or unspecified chronic kidney disease] Resolved: 06-02-2022 Chronic Mycoses (15 sources) Dermatophytosis; Translations: [Dermatophytosis, unspecified] Onset: 07-22-2024 Resolved: 07-22-2024 07-22-2024 Episodic Nonspecific chest pain (20 sources) Chest pain, unspecified; Translations: [Chest pain] Onset: 04-21-2015 Resolved: 07-22-2024 Episodic Occlusion or stenosis of precerebral arteries (19 sources) Carotid artery occlusion; Translations: [Occlusion and stenosis of unspecified carotid artery] Onset: 06-08-2017 Resolved: 07-22-2024 07-22-2024 Chronic Other aftercare (20 sources) Taking high risk medication; Translations: [Other senior care (current) drug therapy] Onset: 12-28-2023 Resolved: 07-22-2024 12-28-2023 Episodic Other aftercare (15 sources) Patient encounter status; Translations: [Encounter for therapeutic drug level monitoring] Onset: 07-22-2024 Resolved: 07-22-2024 07-22-2024 Episodic Other aftercare (15 sources) Long-term current use of anticoagulant; Translations: [long term (current) use of anticoagulants] Onset: 07-22-2024 Resolved: 07-22-2024 07-22-2024 Episodic Other aftercare (2 sources) Other senior care (current) drug therapy; Translations: [Other senior care (current) drug therapy] Onset: 12-28-2023 Episodic Other connective tissue disease (1 source) Myalgia, unspecified site; Translations: [MYALGIA UNSPECIFIED SITE] Onset: 01-23-2022 Episodic Other connective tissue disease (15 sources) Enthesopathy; Translations: [Enthesopathy, unspecified] Onset: 07-22-2024 [...] (gaseous)] Onset: 04-13-2016 Episodic Other gastrointestinal disorders (16 sources) Diarrhea; Translations: [Diarrhea, unspecified] Onset: 07-22-2024 [...] Onset: 06-14-2016 Episodic Other male genital disorders (16 sources) Erectile dysfunction following radical prostatectomy; Translations: [Erectile dysfunction following radical prostatectomy] Onset: 07-22-2024 Resolved: 07-22-2024 03-20-2019 Chronic Other nervous system disorders (15 sources) Difficulty walking; Translations: [Difficulty in walking, not elsewhere classified] Onset: 07-22-2024 Resolved: 07-22-2024 07-22-2024 Chronic Other nervous system disorders (20 sources) Paresthesia; Translations: [Paresthesia of skin] Onset: 07-22-2024 Resolved: 07-22-2024 09-13-2023 Episodic Other non-traumatic joint disorders (4 sources) Pain in right hip; Translations: [PAIN IN RIGHT HIP] Onset: 12-29-2021 Episodic Other non-traumatic joint disorders (15 sources) Arthralgia of the ankle and/or foot; [...] adult] Onset: 12-28-2023 Episodic Residual codes; unclassified (16 sources) H/O: anticoagulant therapy; Translations: [Personal history [...] Test Name Value Interpretation Reference Range Facility No Panel Informationon 11-29 [facility] Basophils Auto (Bld) [#/Vol] on 10-01-2024 Basophils (Bld) [#/Vol] Automated basoph il count 0.0-0.1 [facility] Basophils/100 WBC Auto (Bld) on 10-01-2024 Basophils/100 WBC (Bld) Automated basophil % 0. 2-2.0 [facility] Eosinophils/100 WBC Auto (Bl d)on 10-01-2024 Eosinophils/100 WBC (Bld) Automated eosinophil % 0.9-7.0 [facility] Erythrocyte distribution wid th Auto (RBC) [Ratio]on 10-01-2024 Erythrocyte distribution width (RBC) [Ratio] Erythrocyte distribution width [Ratio] by Automated count 11.0-15.0 [facility] Estimated glomerular filtrat ion rate (GFR) non- Americanon 10-01-2024 GFR/1.73 sq M.predicted among non-blacks MDRD (S/P/Bld) [Vol rate/Area] Estimated glomerular filtration rate (GFR) non- >=60 mL/min/1.73 m 2 [facility] Hematocrit Auto (Bld) [Volum e fraction]on 10-01-2024 Hematocrit (Bld) [Volume fraction] Hematocrit [Volume Fraction] of Blood by Automated count 42.0-54.0 [facility] Hemoglobin [Mass/volume] in Bloodon 10-01-2024 Hemoglobin (Bld) [Mass/Vol] Hemoglobin [Mass/volume] in Blood 14.0-18.0 [facility] Laboratory - Chemistry and C hemistry - challengeon 10-01-2024 Calcium [Mass/Vol] 9.0 mg/dL 8.5-10.1 [facility] Chloride [Moles/Vol] 104 mmol/L 98-107 [facility] CO2 [Moles/Vol] 31.6 mmol/L 21.0-32.0 [facility] Creatinine [Mass/Vol] 1.09 mg/dL 0.70-1.30 [facility] GFR/1.73 sq M.predicted MDRD (S/P/Bld) [Vol rate/Area] mL/min/{1.73_m2} >=60 mL/min/1.73 m 2 [facility] Glucose [Mass/Vol] 92 mg/dL 74-106 [facility] Potassium [Moles/Vol] 4.3 mmol/L 3.5-5.1 [facility] Sodium [Moles/Vol] 141 mmol/L 136-145 [facility] Urea nitrogen [Mass/Vol] 20.0 mg/dL High 7.0-18.0 [facility] Urea nitrogen/Creatinine [Mass ratio] 18.3 mg/mg [facility] Laboratory - Hematology and Cell countson 10-01-2024 Immature granulocytes/100 WBC (Bld) 0.1 % 0.0-0.5 [facility] Leukocytes [#/volume] correc augustine for nucleated erythrocytes in Blood by Automated counon 10-01-2024 WBC corrected for nucl RBC Auto (Bld) [#/Vol] Leukocytes [#/volume] corrected for nucleated erythrocytes in Blood by Automated coun 4.0-11.0 [facility] Lymphocytes Auto (Bld) [#/Vo l]on 10-01-2024 Lymphocytes (Bld) [#/Vol] Lymphocytes [#/volume] in Blood by Automated count 1.2-3.8 [facility] Lymphocytes/100 WBC Auto (Bl d)on 10-01-2024 Lymphocytes/100 WBC (Bld) Lymphocytes/100 leukocytes in Blood by Automated count 20.5-60.0 [facility] MCH Auto (RBC) [Entitic mass ]on 10-01-2024 MCH (RBC) [Entitic mass] MCH [Entitic ma ss] by Automated count 25.9-34.0 [facility] MCHC Auto (RBC) [Mass/Vol]on 10-01-2024 MCHC (RBC) [Mass/Vol] MCHC [Mass/volume] by Automated count 29.9-35.2 [facility] MCV Auto (RBC) [Entitic vol] on 10-01-2024 MCV (RBC) [Entitic vol] MCV [Entitic vol ume] by Automated count High 80.0-94.0 [facility] Monocytes Auto (Bld) [#/Vol] on 10-01-2024 Monocytes (Bld) [#/Vol] Automated blood monocyte count High 0.3-0.8 [facility] Monocytes/100 WBC Auto (Bld) on 10-01-2024 Monocytes/100 WBC (Bld) Automated monocyte % 1. 7-12.0 [facility] Neutrophils Auto (Bld) [#/Vo l]on 10-01-2024 Neutrophils (Bld) [#/Vol] Neutrophils [#/volume] in Blood by Automated count 1.4-6.5 [facility] Neutrophils/100 WBC Auto (Bl d)on 10-01-2024 Neutrophils/100 WBC (Bld) Automated neutrophil % 43.0-75.0 [facility] No Panel Informationon 10-01 Eosinophils # (Auto) 0.2 10 3/uL 0.0-0.7 [facility] Immature Granulocyte # (Auto) 0.01 10 3/uL 0.00-0.03 [facility] Platelet mean volume Auto (B ld) [Entitic vol]on 10-01-2024 Platelet mean volume (Bld) [Entitic vol] Platelet mean volume [Entitic volume] in Blood by Automated count 9.5-13.5 [facility] Platelets Auto (Bld) [#/Vol] on 10-01-2024 Platelets (Bld) [#/Vol] Platelets [#/vol ume] in Blood by Automated count 150-450 [facility] RBC Auto (Bld) [#/Vol]on RBC (Bld) [#/Vol] Erythrocytes [#/volume] in Blood by Automated count 4.70-6.10 [facility] Serum or plasma anion gap de terminationon 10-01-2024 Anion gap [Moles/Vol] Serum or plasma an ion gap determination [facility] Iron binding capacity [Mass/ volume] in Serum or Plasmaon 09-25-2024 Iron binding capacity [Mass/Vol] Iron binding capacity [Mass/volume] in Serum or Plasma 250.0-450.0 [facility] Iron saturation [Mass Fracti on] in Serum or Plasmaon 09-25-2024 Iron saturation [Mass fraction] Iron saturation [Mass Fraction] in Serum or Plasma [facility] Laboratory - Chemistry and C hemistry - challengeon 09-25-2024 Cobalamin (Vitamin B12) [Mass/Vol] 675 pg/mL 232-1245 [facility] Comment on above: Performed at: [address] [id number] Director: Terell Silva PhD, Phone: [phone] Ferritin [Mass/Vol] 124.0 ng/mL 26.0-388.0 [facility] Iron [Mass/Vol] 123.0 ug/dL 65.0-175.0 [facility] Aspartate Amino Transferaseo n 08-28-2024 AST [Catalytic activity/Vol] 15 U/L Normal 13-39 [facility] Comment on above: Performed By: #### B MP, AST, TSH3 #### [facility] [address] [place] [address] [place] Aspartate aminotransferase [ Enzymatic activity/volume] in Serum or PlasmaOrdered By: Alfred Baron on 08-28-2024 AST [Catalytic activity/Vol] Aspartate aminotransferase [Enzymatic activity/volume] in Serum or Plasma 13-39 [facility] Basic Metabolic Panelon Anion gap [Moles/Vol] 8.9 mmol/L Normal 6.0-15.0 [facility] Comment on above: Performed By: #### B MP, AST, TSH3 #### [facility] [address] [place] [address] [place] Calcium [Mass/Vol] 9.0 mg/dL Normal 8.6-10.3 [facility] Comment on above: Performed By: #### B MP, AST, TSH3 #### [facility] [address] [place] [id number] [place] Chloride [Moles/Vol] 106 mmol/L Normal 98-107 [facility] Comment on above: Performed By: #### B MP, AST, TSH3 #### [facility] [address] [place] [id number] [place] CO2 [Moles/Vol] 29.3 mmol/L Normal 21.0-31.0 [facility] Comment on above: Performed By: #### B MP, AST, TSH3 #### [facility] [address] Creatinine [Mass/Vol] 0.87 mg/dL Normal 0.70-1.30 [facility] Comment on above: Performed By: #### B MP, AST, TSH3 #### [facility] [address] [place] [address] [place] GFR/1.73 sq M.predicted MDRD (S/P/Bld) [Vol rate/Area] mL/min/{1.73_m2} Normal [facility] Comment on above: Performed By: #### B MP, AST, TSH3 #### [facility] [address] Glucose [Mass/Vol] 83 mg/dL Normal 70-100 [facility] Comment on above: Result Comment: [facility] Glucose Reference Range is dependent on time and content of last meal. Glucose of more than 200 mg/dL in a nonstressed, ambulatory subject supports the diagnosis of Diabetes Mellitus. ADA recommended reference range Performed By: #### B MP, AST, TSH3 #### [facility] [address] [place] [address] [place] Potassium [Moles/Vol] 4.2 mmol/L Normal 3.5-5.1 [facility] Comment on above: Performed By: #### B MP, AST, TSH3 #### [facility] [address] [place] [address] [place] Sodium [Moles/Vol] 140 mmol/L Normal 136-145 [facility] Comment on above: Performed By: #### B MP, AST, TSH3 #### [facility] [address] Urea nitrogen [Mass/Vol] 27 mg/dL High 7-25 [facility] Comment on above: Performed By: #### B MP, AST, TSH3 #### [facility] [address] [place] [address] [place] Calcium [Mass/volume] in Ser um or PlasmaOrdered By: Alfred Baron on 08-28-2024 Calcium [Mass/Vol] Calcium [Mass/volume ] in Serum or Plasma 8.6-10.3 [facility] Carbon dioxide, total [Moles /volume] in Serum or PlasmaOrdered By: Alfred Baron on 08-28-2024 CO2 [Moles/Vol] Carbon dioxide, tota l [Moles/volume] in Serum or Plasma 21.0-31.0 [facility] Chloride [Moles/volume] in S ky or PlasmaOrdered By: Alfred Baron on 08-28-2024 Chloride [Moles/Vol] Chloride [Moles/volume] in Serum or Plasma 98-107 [facility] Creatinine [Mass/volume] in Serum or PlasmaOrdered By: Alfred Baron on 08-28-2024 Creatinine [Mass/Vol] Creatinine [Mass/volume] in Serum or Plasma 0.70-1.30 [facility] Glucose [Mass/volume] in Ser um or PlasmaOrdered By: Alfred Baron on 08-28-2024 Glucose [Mass/Vol] Glucose [Mass/volume ] in Serum or Plasma 70-100 [facility] Comment on above: ADA recommended refe rence rangeRandom Glucose Reference Range is dependent on time and content of last meal. Glucose of more than 200 mg/dL in a nonstressed, ambulatory subject supports the diagnosis of Diabetes Mellitus. No Panel InformationOrdered By: Alfred Baron on 08-28-2024 Estimated GFR (CKD-EPI) > 60.0 mL/Min [facility] Creatinine Clearance (Chem N/A [facility] Potassium [Moles/volume] in Serum or PlasmaOrdered By: Alfred Baron on 08-28-2024 Potassium [Moles/Vol] Potassium [Moles/volume] in Serum or Plasma 3.5-5.1 [facility] Serum or plasma anion gap de terminationOrdered By: Alfred Baron on 08-28-2024 Anion gap [Moles/Vol] Serum or plasma an ion gap determination 6.0-15.0 [facility] Sodium [Moles/volume] in Ser um or PlasmaOrdered By: Alfred Baron on 08-28-2024 Sodium [Moles/Vol] Sodium [Moles/volume ] in Serum or Plasma 136-145 [facility] Thyroid Stimulating Hormoneo n 08-28-2024 TSH Qn 1.04 m[IU]/L Normal 0.45-5.33 [facility] Comment on above: Result Comment: PERF ORMED BY: [facility] [address] [place] [address] PATHOLOGIST [employer] DASHAWN GARCIA M.D. Performed By: #### B MP, AST, TSH3 #### [facility] [address] Thyrotropin [Units/volume] i n Serum or PlasmaOrdered By: Alfred Baron on 08-28-2024 TSH Qn Thyrotropin [Units/volume] in Serum or Plasma 0.45-5.33 [facility] Urea nitrogen [Mass/volume] in Serum or PlasmaOrdered By: Alfred Baron on 08-28-2024 Urea nitrogen [Mass/Vol] Urea nitrogen [Mass/volume] in Serum or Plasma High 7-25 [facility] No Panel Informationon 08-27 [facility] Basophils Auto (Bld) [#/Vol] on 07-27-2024 Basophils (Bld) [#/Vol] Automated basoph il count 0.0-0.1 [facility] Basophils/100 WBC Auto (Bld) on 07-27-2024 Basophils/100 WBC (Bld) Automated basophil % 0. 2-2.0 [facility] Eosinophils/100 WBC Auto (Bl d)on 07-27-2024 Eosinophils/100 WBC (Bld) Automated eosinophil % 0.9-7.0 [facility] Erythrocyte distribution wid th Auto (RBC) [Ratio]on 07-27-2024 Erythrocyte distribution width (RBC) [Ratio] Erythrocyte distribution width [Ratio] by Automated count 11.0-15.0 [facility] Estimated glomerular filtrat ion rate (GFR) non- Americanon 07-27-2024 GFR/1.73 sq M.predicted among non-blacks MDRD (S/P/Bld) [Vol rate/Area] Estimated glomerular filtration rate (GFR) non- Low >=60 mL/min/1.73 m 2 [facility] Globulin Calc (S) [Mass/Vol] on 07-27-2024 Globulin (S) [Mass/Vol] Serum globulin measurement by calculation (mass/volume) [facility] Hematocrit Auto (Bld) [Volum e fraction]on 07-27-2024 Hematocrit (Bld) [Volume fraction] Hematocrit [Volume Fraction] of Blood by Automated count 42.0-54.0 [facility] Hemoglobin [Mass/volume] in Bloodon 07-27-2024 Hemoglobin (Bld) [Mass/Vol] Hemoglobin [Mass/volume] in Blood 14.0-18.0 [facility] - Chemistry and C hemistry - challengeon 07-27-2024 Albumin [Mass/Vol] 3.5 g/dL 3.4-5.0 [facility] ALP [Catalytic activity/Vol] 77 U/L 46-116 [facility] ALT [Catalytic activity/Vol] 24 U/L 16-63 [facility] AST [Catalytic activity/Vol] 20 U/L 15-37 [facility] Bilirubin [Mass/Vol] 0.5 mg/dL 0.2-1.0 [facility] Calcium [Mass/Vol] 8.9 mg/dL 8.5-10.1 [facility] Chloride [Moles/Vol] 104 mmol/L 98-107 [facility] CO2 [Moles/Vol] 28.2 mmol/L 21.0-32.0 [facility] Creatinine [Mass/Vol] 1.29 mg/dL 0.70-1.30 [facility] GFR/1.73 sq M.predicted MDRD (S/P/Bld) [Vol rate/Area] mL/min/{1.73_m2} >=60 mL/min/1.73 m 2 [facility] Glucose [Mass/Vol] 107 mg/dL High 74-106 [facility] Natriuretic peptide B (Bld) [Mass/Vol] 144.0 pg/mL <=1800.0 [facility] Potassium [Moles/Vol] 4.6 mmol/L 3.5-5.1 [facility] Protein [Mass/Vol] 6.7 g/dL 6.4-8.2 [facility] Sodium [Moles/Vol] 139 mmol/L 136-145 [facility] Urea nitrogen [Mass/Vol] 19.0 mg/dL High 7.0-18.0 [facility] Urea nitrogen/Creatinine [Mass ratio] 14.7 mg/mg [facility] Laboratory - Hematology and Cell countson 07-27-2024 Immature granulocytes/100 WBC (Bld) 0.2 % 0.0-0.5 [facility] Leukocytes [#/volume] correc augustine for nucleated erythrocytes in Blood by Automated counon 07-27-2024 WBC corrected for nucl RBC Auto (Bld) [#/Vol] Leukocytes [#/volume] corrected for nucleated erythrocytes in Blood by Automated coun High 4.0-11.0 [facility] Lymphocytes Auto (Bld) [#/Vo l]on 07-27-2024 Lymphocytes (Bld) [#/Vol] Lymphocytes [#/volume] in Blood by Automated count 1.2-3.8 [facility] Lymphocytes/100 WBC Auto (Bl d)on 07-27-2024 Lymphocytes/100 WBC (Bld) Lymphocytes/100 leukocytes in Blood by Automated count Low 20.5-60.0 [facility] MCH Auto (RBC) [Entitic mass ]on 07-27-2024 MCH (RBC) [Entitic mass] MCH [Entitic ma ss] by Automated count 25.9-34.0 [facility] MCHC Auto (RBC) [Mass/Vol]on 07-27-2024 MCHC (RBC) [Mass/Vol] MCHC [Mass/volume] by Automated count 29.9-35.2 [facility] MCV Auto (RBC) [Entitic vol] on 07-27-2024 MCV (RBC) [Entitic vol] MCV [Entitic vol ume] by Automated count 80.0-94.0 [facility] Monocytes Auto (Bld) [#/Vol] on 07-27-2024 Monocytes (Bld) [#/Vol] Automated blood monocyte count High 0.3-0.8 [facility] Monocytes/100 WBC Auto (Bld) on 07-27-2024 Monocytes/100 WBC (Bld) Automated monocyte % 1. 7-12.0 [facility] Neutrophils Auto (Bld) [#/Vo l]on 07-27-2024 Neutrophils (Bld) [#/Vol] Neutrophils [#/volume] in Blood by Automated count High 1.4-6.5 [facility] Neutrophils/100 WBC Auto (Bl d)on 07-27-2024 Neutrophils/100 WBC (Bld) Automated neutrophil % 43.0-75.0 [facility] No Panel Informationon 07-27 Eosinophils # (Auto) 0.1 10 3/uL 0.0-0.7 [facility] Immature Granulocyte # (Auto) 0.02 10 3/uL 0.00-0.03 [facility] Troponin I High Sensitivity 8.6 pg/mL 4.0-76.1 [facility] Comment on above: CUT-OFF POINTS HAVE BEEN ESTABLISHED BASED ON THE FOURTHIVERSAL DEFINITION OF MYOCARDIAL INFARCTION. THE UPPERREFERENCE LIMIT [...] volume] in Blood by Automated count 9.5-13.5 [facility] Platelets Auto (Bld) [#/Vol] on 07-27-2024 Platelets (Bld) [#/Vol] Platelets [#/vol ume] in Blood by Automated count 150-450 [facility] RBC Auto (Bld) [#/Vol]on RBC (Bld) [#/Vol] Erythrocytes [#/volume] in Blood by Automated count 4.70-6.10 [facility] Serum or plasma albumin/glob ulin mass ratioon 07-27-2024 Albumin/Globulin [Mass ratio] Serum or plasma albumin/globulin mass ratio [facility] Serum or plasma anion gap de terminationon 07-27-2024 Anion gap [Moles/Vol] Serum or plasma an ion gap determination [facility] Estimated glomerular filtrat ion rate (GFR) non- Americanon 07-26-2024 GFR/1.73 sq M.predicted among non-blacks MDRD (S/P/Bld) [Vol rate/Area] Estimated glomerular filtration rate (GFR) non- >=60 mL/min/1.73 m 2 [facility] - Chemistry and C hemistry - challengeon 07-26-2024 AST [Catalytic activity/Vol] 15 U/L 15-37 [facility] Calcium [Mass/Vol] 8.9 mg/dL 8.5-10.1 [facility] Chloride [Moles/Vol] 105 mmol/L 98-107 [facility] CO2 [Moles/Vol] 29.4 mmol/L 21.0-32.0 [facility] Creatinine [Mass/Vol] 1.01 mg/dL 0.70-1.30 [facility] GFR/1.73 sq M.predicted MDRD (S/P/Bld) [Vol rate/Area] mL/min/{1.73_m2} >=60 mL/min/1.73 m 2 [facility] Glucose [Mass/Vol] 100 mg/dL 74-106 [facility] Potassium [Moles/Vol] 4.3 mmol/L 3.5-5.1 [facility] Sodium [Moles/Vol] 140 mmol/L 136-145 [facility] TSH Qn 1.223 m[IU]/L 0.358-3.740 [facility] Urea nitrogen [Mass/Vol] 18.0 mg/dL 7.0-18.0 [facility] Urea nitrogen/Creatinine [Mass ratio] 17.8 mg/mg [facility] Serum or plasma anion gap de terminationon 07-26-2024 Anion gap [Moles/Vol] Serum or plasma an ion gap determination [facility] ECG 12 Leadon 07-24-2024 Sinus bradycardia, inferior [place] age undetermined, abnormal ECG [facility] Work Phone: No Panel Informationon 07-18 Consent obtained: written (The rationale for Mohs as well as the risks, benefits, and alternatives. The risks of infection, scarring, bleeding, prolonged wound healing, incomplete removal, allergy to anesthesia or meds, nerve injury, and recurrence were addressed.) [place] Protocol: Procedure explained and questions answered to [...] sodium bicarbonate Procedure Details: Biopsy accession number: [id number] Biopsy lab: [facility] Date of biopsy: 05/21/2024 Frozen section biopsy [...] 0. Tumor free (more content not included)... [facility] No Panel InformationOrdered By: Aniya Meyer on 07-18-2024 [facility] No Panel Informationon 05-21 Type of [...] taken Amount of lidocaine used: 1.0 cc [facility] Basophils Auto (Bld) [#/Vol] on 04-11-2024 Basophils (Bld) [#/Vol] Automated basoph il count 0.0-0.1 [facility] Basophils/100 WBC Auto (Bld) on 04-11-2024 Basophils/100 WBC (Bld) Automated basophil % 0. 2-2.0 [facility] Eosinophils/100 WBC Auto (Bl d)on 04-11-2024 Eosinophils/100 WBC (Bld) Automated eosinophil % 0.9-7.0 [facility] Erythrocyte distribution wid th Auto (RBC) [Ratio]on 04-11-2024 Erythrocyte distribution width (RBC) [Ratio] Erythrocyte distribution width [Ratio] by Automated count 11.0-15.0 [facility] Hematocrit Auto (Bld) [Volum e fraction]on 04-11-2024 Hematocrit (Bld) [Volume fraction] Hematocrit [Volume Fraction] of Blood by Automated count 42.0-54.0 [facility] Hemoglobin [Mass/volume] in Bloodon 04-11-2024 Hemoglobin (Bld) [Mass/Vol] Hemoglobin [Mass/volume] in Blood 14.0-18.0 [facility] Iron binding capacity [Mass/ volume] in Serum or Plasmaon 04-11-2024 Iron binding capacity [Mass/Vol] Iron binding capacity [Mass/volume] in Serum or Plasma 250.0-450.0 [facility] Iron saturation [Mass Fracti on] in Serum or Plasmaon 04-11-2024 Iron saturation [Mass fraction] Iron saturation [Mass Fraction] in Serum or Plasma [facility] Laboratory - Chemistry and C hemistry - challengeon 04-11-2024 Ferritin [Mass/Vol] 88.0 ng/mL 26.0-388.0 [facility] Iron [Mass/Vol] 77.0 ug/dL 65.0-175.0 [facility] Laboratory - Hematology and Cell countson 04-11-2024 Immature granulocytes/100 WBC (Bld) 0.2 % 0.0-0.5 [facility] Leukocytes [#/volume] correc augustine for nucleated erythrocytes in Blood by Automated counon 04-11-2024 WBC corrected for nucl RBC Auto (Bld) [#/Vol] Leukocytes [#/volume] corrected for nucleated erythrocytes in Blood by Automated coun 4.0-11.0 [facility] Lymphocytes Auto (Bld) [#/Vo l]on 04-11-2024 Lymphocytes (Bld) [#/Vol] Lymphocytes [#/volume] in Blood by Automated count 1.2-3.8 [facility] Lymphocytes/100 WBC Auto (Bl d)on 04-11-2024 Lymphocytes/100 WBC (Bld) Lymphocytes/100 leukocytes in Blood by Automated count Low 20.5-60.0 [facility] MCH Auto (RBC) [Entitic mass ]on 04-11-2024 MCH (RBC) [Entitic mass] MCH [Entitic ma ss] by Automated count 25.9-34.0 [facility] MCHC Auto (RBC) [Mass/Vol]on 04-11-2024 MCHC (RBC) [Mass/Vol] MCHC [Mass/volume] by Automated count 29.9-35.2 [facility] MCV Auto (RBC) [Entitic vol] on 04-11-2024 MCV (RBC) [Entitic vol] MCV [Entitic vol ume] by Automated count High 80.0-94.0 [facility] Monocytes Auto (Bld) [#/Vol] on 04-11-2024 Monocytes (Bld) [#/Vol] Automated blood monocyte count High 0.3-0.8 [facility] Monocytes/100 WBC Auto (Bld) on 04-11-2024 Monocytes/100 WBC (Bld) Automated monocyte % 1. 7-12.0 [facility] Neutrophils Auto (Bld) [#/Vo l]on 04-11-2024 Neutrophils (Bld) [#/Vol] Neutrophils [#/volume] in Blood by Automated count High 1.4-6.5 [facility] Neutrophils/100 WBC Auto (Bl d)on 04-11-2024 Neutrophils/100 WBC (Bld) Automated neutrophil % 43.0-75.0 [facility] No Panel Informationon 04-11 Eosinophils # (Auto) 0.1 10 3/uL 0.0-0.7 [facility] Immature Granulocyte # (Auto) 0.02 10 3/uL 0.00-0.03 [facility] Platelet mean volume Auto (B ld) [Entitic vol]on 04-11-2024 Platelet mean volume (Bld) [Entitic vol] Platelet mean volume [Entitic volume] in Blood by Automated count 9.5-13.5 [facility] Platelets Auto (Bld) [#/Vol] on 04-11-2024 Platelets (Bld) [#/Vol] Platelets [#/vol ume] in Blood by Automated count 150-450 [facility] RBC Auto (Bld) [#/Vol]on RBC (Bld) [#/Vol] Erythrocytes [#/volume] in Blood by Automated count 4.70-6.10 [facility] No Panel Informationon 02-13 [facility] NUCLEAR STRESS TESTon 2023 NUCLEAR STRESS TEST Interpreted By: Rose Green and Giannuzzi Michael STUDY: MYOCARDIAL PERFUSION STRESS TEST WITH EXERCISE Performing facility: [facility] [address] [place] [address], [facility] [place] [address] [facility] Provider: August Baron DO, FACC PCP: Dr. Nohemy Canela Supervising provider: August Baron DO, FACC INDICATION: Chest Pain; HISTORY: Gender: M; Age: 83 y/o ; Height: HT 175.3 cm cm; Weight: WT 88.451 kg kg. CAD; High Cholesterol; Previous TX; HTN; Arrhythmias; Chest Pain; Quit smoking Unknown years ago. Cardiac catheterization on 2014, 2015, 2020. PTCA on , 2020. COMPARISON: Previous nuclear testing completed [id number] at [place]. ACCESSION NUMBER(S): [id number] ORDERING CLINICIAN: BRENDON BARON TECHNIQUE: ONE DAY [...] Rose Green 01/04/2024 4:22 PM Dictation workstation: [id number] [facility] ECG 12 Leadon 12-28-2023 Sinus bradycardia, first-degree AV block, low voltage, abnormal ECG [facility] Work Phone: [facility] Work Phone: Basophils Auto (Bld) [#/Vol] on 12-16-2023 Basophils (Bld) [#/Vol] 0.0 10 3/uL 0.0-0.1 [facility] Basophils/100 WBC Auto (Bld) on 12-16-2023 Basophils/100 WBC (Bld) 0.3 % 0.2-2.0 F [facility] Eosinophils/100 WBC Auto (Bl d)on 12-16-2023 Eosinophils/100 WBC (Bld) 1.0 % 0.9-7.0 [facility] Erythrocyte distribution wid th Auto (RBC) [Ratio]on 12-16-2023 Erythrocyte distribution width (RBC) [Ratio] 22.2 % High 11.0-15.0 [facility] Estimated glomerular filtrat ion rate (GFR) non- Americanon 12-16-2023 GFR/1.73 sq M.predicted among non-blacks MDRD (S/P/Bld) [Vol rate/Area] mL/min/{1.73_m2} >=60 [facility] Fibrin D-dimer [Presence] in Platelet poor plasma by Latex agglutinationon 12-16-2023 Fibrin D-dimer LA Ql (PPP) <0.19 mg/L FEU <=0.59 [facility] Comment on above: Increases in D-Dimer [...] Hematocrit (Bld) [Volume fraction] 47.6 % 42.0-54.0 [facility] Hemoglobin [Mass/volume] in Bloodon 12-16-2023 Hemoglobin (Bld) [Mass/Vol] 15.6 g/dL 14.0-18.0 [facility] Laboratory - Chemistry and C hemistry - challengeon 12-16-2023 Calcium [Mass/Vol] 9.0 mg/dL 8.5-10.1 [facility] Chloride [Moles/Vol] 105 mmol/L 98-107 [facility] CO2 [Moles/Vol] 27.8 mmol/L 21.0-32.0 [facility] Creatinine [Mass/Vol] 1.12 mg/dL 0.70-1.30 [facility] GFR/1.73 sq M.predicted MDRD (S/P/Bld) [Vol rate/Area] mL/min/{1.73_m2} >=60 [facility] Glucose [Mass/Vol] 174 mg/dL High 74-106 [facility] Natriuretic peptide B (Bld) [Mass/Vol] 129.0 pg/mL <=1800.0 [facility] Potassium [Moles/Vol] 4.0 mmol/L 3.5-5.1 [facility] Sodium [Moles/Vol] 139 mmol/L 136-145 [facility] Urea nitrogen [Mass/Vol] 20.0 mg/dL High 7.0-18.0 [facility] Urea nitrogen/Creatinine [Mass ratio] 17.9 mg/mg [facility] Laboratory - Hematology and Cell countson 12-16-2023 Immature granulocytes/100 WBC (Bld) 0.1 % 0.0-0.5 [facility] Leukocytes [#/volume] correc augustine for nucleated erythrocytes in Blood by Automated counon 12-16-2023 WBC corrected for nucl RBC Auto (Bld) [#/Vol] 8.8 10 3/uL 4.0-11.0 [facility] Lymphocytes Auto (Bld) [#/Vo l]on 12-16-2023 Lymphocytes (Bld) [#/Vol] 2.4 10 3/uL 1.2-3.8 [facility] Lymphocytes/100 WBC Auto (Bl d)on 12-16-2023 Lymphocytes/100 WBC (Bld) 27.3 % 20.5-60.0 [facility] MCH Auto (RBC) [Entitic mass ]on 12-16-2023 MCH (RBC) [Entitic mass] 28.7 pg 25.9-34.0 [facility] MCHC Auto (RBC) [Mass/Vol]on 12-16-2023 MCHC (RBC) [Mass/Vol] 32.8 g/dL 29.9-35.2 [facility] MCV Auto (RBC) [Entitic vol] on 12-16-2023 MCV (RBC) [Entitic vol] 87.7 fL 80.0-94.0 [facility] Monocytes Auto (Bld) [#/Vol] on 12-16-2023 Monocytes (Bld) [#/Vol] 0.8 10 3/uL 0.3-0.8 [facility] Monocytes/100 WBC Auto (Bld) on 12-16-2023 Monocytes/100 WBC (Bld) 9.0 % 1.7-12.0 [facility] Neutrophils Auto (Bld) [#/Vo l]on 12-16-2023 Neutrophils (Bld) [#/Vol] 5.5 10 3/uL 1.4-6.5 [facility] Neutrophils/100 WBC Auto (Bl d)on 12-16-2023 Neutrophils/100 WBC (Bld) 62.3 % 43.0-75.0 [facility] No Panel Informationon 12-15 Eosinophils # (Auto) 0.1 10 3/uL 0.0-0.7 [facility] Immature Granulocyte # (Auto) 0.01 10 3/uL 0.00-0.03 [facility] Troponin I High Sensitivity 7.3 pg/mL 4.0-76.1 [facility] Comment on above: CUT-OFF POINTS HAVE [...] volume (Bld) [Entitic vol] 9.8 fL 9.5-13.5 [facility] Platelets Auto (Bld) [#/Vol] on 12-16-2023 Platelets (Bld) [#/Vol] 178 10 3/uL 150-450 [facility] RBC Auto (Bld) [#/Vol]on RBC (Bld) [#/Vol] 5.43 10 6/uL 4.70-6.10 [facility] Serum or plasma anion gap de terminationon 12-16-2023 Anion gap [Moles/Vol] 10.2 mmol/L Fi [facility] Basophils Auto (Bld) [#/Vol] on 11-22-2023 Basophils (Bld) [#/Vol] 0.0 10 3/uL 0.0-0.1 [facility] Basophils/100 WBC Auto (Bld) on 11-22-2023 Basophils/100 WBC (Bld) 0.6 % 0.2-2.0 [facility] Eosinophils/100 WBC Auto (Bl d)on 11-22-2023 Eosinophils/100 WBC (Bld) 2.6 % 0.9-7.0 [facility] Erythrocyte distribution wid th Auto (RBC) [Ratio]on 11-22-2023 Erythrocyte distribution width (RBC) [Ratio] 24.3 % High 11.0-15.0 [facility] Ferritin [Mass/volume] in Se rum or PlasmaOrdered By: Miriam Juarez on 11-22-2023 Ferritin [Mass/Vol] 146.7 ng/mL Normal 23.9-336.2 [facility] Comment on above: Result Comment: PERF ORMED BY: [place] [address] PATHOLOGIST [employer] GABINO ARCOS M.D. Performed By: #### F ER #### [address] Hematocrit Auto (Bld) [Volum e fraction]on 11-22-2023 Hematocrit (Bld) [Volume fraction] 47.9 % 42.0-54.0 [facility] Hemoglobin [Mass/volume] in Bloodon 11-22-2023 Hemoglobin (Bld) [Mass/Vol] 15.3 g/dL 14.0-18.0 [facility] Iron binding capacity [Mass/ volume] in Serum or Plasmaon 11-22-2023 Iron binding capacity [Mass/Vol] 293.0 ug/dL 250.0-450.0 [facility] Iron saturation [Mass Fracti on] in Serum or Plasmaon 11-22-2023 Iron saturation [Mass fraction] 28.3 % [facility] - Chemistry and C hemistry - challengeon 11-22-2023 Iron [Mass/Vol] 83.0 ug/dL 65.0-175.0 [facility] [facility] - Hematology and Cell countson 11-22-2023 Immature granulocytes/100 WBC (Bld) 0.3 % 0.0-0.5 [facility] Leukocytes [#/volume] correc augustine for nucleated erythrocytes in Blood by Automated counon 11-22-2023 WBC corrected for nucl RBC Auto (Bld) [#/Vol] 7.2 10 3/uL 4.0-11.0 [facility] Lymphocytes Auto (Bld) [#/Vo l]on 11-22-2023 Lymphocytes (Bld) [#/Vol] 1.8 10 3/uL 1.2-3.8 [facility] Lymphocytes/100 WBC Auto (Bl d)on 11-22-2023 Lymphocytes/100 WBC (Bld) 25.3 % 20.5-60.0 [facility] MCH Auto (RBC) [Entitic mass ]on 11-22-2023 MCH (RBC) [Entitic mass] 27.8 pg 25.9-34.0 [facility] MCHC Auto (RBC) [Mass/Vol]on 11-22-2023 MCHC (RBC) [Mass/Vol] 31.9 g/dL 29.9-35.2 [facility] MCV Auto (RBC) [Entitic vol] on 11-22-2023 MCV (RBC) [Entitic vol] 86.9 fL 80.0-94.0 [facility] Monocytes Auto (Bld) [#/Vol] on 11-22-2023 Monocytes (Bld) [#/Vol] 0.9 10 3/uL High 0.3-0.8 [facility] Monocytes/100 WBC Auto (Bld) on 11-22-2023 Monocytes/100 WBC (Bld) 12.3 % High 1.7-12.0 [facility] Neutrophils Auto (Bld) [#/Vo l]on 11-22-2023 Neutrophils (Bld) [#/Vol] 4.3 10 3/uL 1.4-6.5 [facility] Neutrophils/100 WBC Auto (Bl d)on 11-22-2023 Neutrophils/100 WBC (Bld) 58.9 % 43.0-75.0 [facility] No Panel Informationon 11-21 Eosinophils # (Auto) 0.2 10 3/uL 0.0-0.7 [facility] Immature Granulocyte # (Auto) 0.02 10 3/uL 0.00-0.03 [facility] Platelet mean volume Auto (B ld) [Entitic vol]on 11-22-2023 Platelet mean volume (Bld) [Entitic vol] 9.7 fL 9.5-13.5 [facility] Platelets Auto (Bld) [#/Vol] on 11-22-2023 Platelets (Bld) [#/Vol] 184 10 3/uL 150-450 [facility] RBC Auto (Bld) [#/Vol]on RBC (Bld) [#/Vol] 5.51 10 6/uL 4.70-6.10 [facility] Paulo 10-26-2023 L Specimen: [id number] Received: 10/26/23 Status: ANSHUL Siddiqimaranda Num: [id number] Spec Type: Surgical Subm Dr: Colleen Ochoa MD Tissues: A Colon Biopsy (RANDOM COLON BX) B Colon Biopsy (RECTAL POLYPS) Procedures: HE/4, Gross/Micro L4/2 Age/ Patient Sex Location Account Attending Physician Valentín Buckner 83/M [id number] Colleen Ochoa MD SPEC NUM: [id number] RECD: 10/26/23 STATUS: ANSHUL ZARATE NUM: [id number] MODESTA: 10/26/23- DR: Colleen Ochoa MD ENTERED: 10/26/[address] [facility] DR: SPEC TYPE: Surgical DEPT: S [...] stools. Rule out microscopic colitis ---- Specimen: [id number] Received: 10/26/23 Status: ANSHUL Zarate Num: [id number] Spec Type: Surgical Subm Dr: Colleen Ochoa MD Tissues: A Colon Biopsy (RANDOM COLON BX) B Colon Biopsy (RECTAL POLYPS) Procedures: HE/4, Gross/Micro L4/2 ---- Patient: Valentín Buckner [id number] (Continued) ---- Specimen: [id number] Received: 10/26/23 (Continued) Signed (signature on file) Kika Jade MD 10/27/231126 ---- Specimen: [id number] Received: 10/26/23 Status: ANSUHL Zarate Num: [id number] Spec Type: Surgical Subm Dr: Colleen Ochoa MD Tissues: A Colon Biopsy (RANDOM COLON BX) B Colon Biopsy (RECTAL POLYPS) Procedures: MARCELA/Silver, Gross/Micro L4/2 ---- Patient: Valentín Buckner [id number] (Continued) ---- Specimen: [id number] Received: 10/26/23 (Continued) CPT Codes 86009y1 ---- ---- Specimen: [id number] Received: 10/26/23 Status: ANSHUL Zarate Num: [id number] Spec Type: Surgical Subm Dr: Colleen Ochoa MD Tissues: A Colon Biopsy (RANDOM COLON BX) B Colon Biopsy (RECTAL POLYPS) Procedures: HE/Silver, Gross/Micro L4/2 ---- Patient: Valentín Buckner [id number] (Continued) ---- Signed (signature on file) Kika Jade MD 10/27/23 1127 Normal [facility] Elastase.pancreatic [Mass/ma ss] in Stoolon 10-20-2023 Elastase.pancreatic (Stl) [Mass/Mass] 242 >200 [facility] Comment on above: Result Units: ug Marissa st./g Severe Pancreatic Insufficiency: <100 Moderate Pancreatic Insufficiency: 100 - 200 Normal: >200Performed at: - [facility] [address] [id number] Director: Christophe Matthew MD, Phone: [phone] HIV 1 and HIV-2 antibody ass ay with HIV-1 p24 antigen detectionon 10-20-2023 HIV 1+2 Ab+HIV1 p24 Ag IA Ql Non-Reactive Non Reactive [facility] Comment on above: HIV NegativeHIV-1/HI V-2 antibodies and HIV-1 p24 antigen were NOTdetected. There is no laboratory evidence of HIV infection.Performed at: [facility] - [facility] [address] [id number] Director: Terell Silva PhD, Phone: [phone] IgA [Mass/volume] in Serum o r Plasmaon 10-20-2023 IgA [Mass/Vol] 150 mg/dL 61-437 [facility] Comment on above: Performed at: [facility] - [facility] [address] [id number] Director: Terell Silva PhD, Phone: [phone] Laboratory - Chemistry and C hemistry - challengeon 10-20-2023 TSH Qn 1.511 m[IU]/L 0.358-3.740 [facility] Laboratory - Hematology and Cell countson 10-20-2023 ESR (Bld) [Velocity] 12 mm/h <=20 [facility] No Panel Informationon 10-19 C-Reactive Protein, Quantitative <0.50 mg/dL <=0.50 [facility] Endomysial IgA Antibody Negative Negative [facility] Clostridium difficile (PCR)(LAB) Negative NEGATIVE [facility] Miscellaneous Test Comment See comment [facility] Comment on above: Specimen Source: ST - Stool - Stool - 700.100 Ova & Parasite Result 1 Comment . [facility] Comment on above: No ova, cysts, or pa rasites seen.One negative specimen does not rule out the possibility ofa parasitic infection.Performed at: [facility] [address] [id number] Director: Terell Silva PhD, Phone: [phone] Ova and Parasites (LAB) Final report . [facility] Comment on above: These results were o btained using wet preparation(s) andtrichrome stained smear. This test does not include testingfor Cryptosporidium parvum, Cyclospora, or Microsporidia. Stool Calprotectin 102 ug/g 0-120 [facility] Comment on above: Concentration Interp retation Follow-Up< 5 - 50 ug/g Normal None>50 -120 ug/g Borderline Re-evaluate in 4-6 weeks >120 ug/g Abnormal Repeat as clinically indicatedPerformed at: - [address] [id number] Director: Christophe Matthew MD, Phone: [phone] Stool Campylobacter Culture Res 1 See comment [facility] Comment on above: [facility], No Panel InformationOrdered By: Imad Asaad on 10-20-2023 E coli Shiga Toxin EIA Fi [facility] Salmonella/Shigella Screen [facility] Serum gliadin peptide IgA an tibody assay (units/volume)on 10-20-2023 Gliadin peptide IgA Qn (S) 3 units 0-19 [facility] Comment on above: Negative 0 - 19 Weak Positive 20 - 30 Moderate to Strong Positive >30 Serum gliadin peptide IgG an tibody assay (units/volume)on 10-20-2023 Gliadin peptide IgG Qn (S) 2 units 0-19 [facility] Comment on above: Negative 0 - 19 Weak Positive 20 - 30 Moderate to Strong Positive >30 Serum tissue transglutaminas e (tTG) IgA antibody assay (units/volume)on 10-20-2023 tTG IgA Qn (S) <2 U/mL 0-3 [facility] Comment on above: Negative 0 - 3 Weak Positive 4 - 10 Positive >10 Tissue Transglutaminase (tTG) has been identified as the endomysial antigen. Studies have demonstr- ated that endomysial IgA antibodies have over 99% specificity for gluten sensitive enteropathy. Serum tissue transglutaminas e (tTG) IgG antibody assay (units/volume)on 10-20-2023 tTG IgG Qn (S) 3 U/mL 0-5 [facility] Comment on above: Negative 0 - 5 Weak Positive 6 - 9 Positive >9 Albumin [Mass/volume] in Ser um or Plasmaon 2023 Albumin [Mass/Vol] 4.0 g/dL 2.9-4.4 [facility] Basophils Auto (Bld) [#/Vol] on 2023 Basophils (Bld) [#/Vol] 0.0 10 3/uL 0.0-0.1 [facility] Basophils/100 WBC Auto (Bld) on 2023 Basophils/100 WBC (Bld) 0.4 % 0.2-2.[address] [facility] Eosinophils/100 WBC Auto (Bl d)on 2023 Eosinophils/100 WBC (Bld) 2.9 % 0.9-7.0 [facility] Erythrocyte distribution wid th Auto (RBC) [Ratio]on 2023 Erythrocyte distribution width (RBC) [Ratio] 22.1 % 11.0-15.0 [facility] Hematocrit Auto (Bld) [Volum e fraction]on 2023 Hematocrit (Bld) [Volume fraction] 43.4 % 42.0-54.0 [facility] Hemoglobin [Mass/volume] in Bloodon 2023 Hemoglobin (Bld) [Mass/Vol] 13.1 g/dL 14.0-18.0 [facility] IgA [Mass/volume] in Serum o r Plasmaon 2023 IgA [Mass/Vol] 151 mg/dL 61-437 [facility] IgG [Mass/volume] in Serum o r Plasmaon 2023 IgG [Mass/Vol] 911 mg/dL 603-1613 [facility] IgM [Mass/volume] in Serum o r Plasmaon 2023 IgM [Mass/Vol] 53 mg/dL 15-143 [facility] Iron binding capacity [Mass/ volume] in Serum or Plasmaon 2023 Iron binding capacity [Mass/Vol] 411.0 ug/dL 250.0-450.0 [facility] Iron saturation [Mass Fracti on] in [facility] Iron saturation [Mass fraction] 11.2 % [facility] Laboratory - Chemistry and C hemistry - challengeon 2023 Ferritin [Mass/Vol] 13.0 ng/mL 26.0-388.0 [facility] Iron [Mass/Vol] 46.0 ug/dL 65.0-175.0 [facility] Laboratory - Hematology and Cell countson 2023 Immature granulocytes/100 WBC (Bld) 0.1 % 0.0-0.5 [facility] Leukocytes [#/volume] correc augustine for nucleated erythrocytes in Blood by Automated counon 2023 WBC corrected for nucl RBC Auto (Bld) [#/Vol] 8.0 10 3/uL 4.0-11.0 [facility] Lymphocytes Auto (Bld) [#/Vo l]on 2023 Lymphocytes (Bld) [#/Vol] 2.2 10 3/uL 1.2-3.8 [facility] Lymphocytes/100 WBC Auto (Bl d)on 2023 Lymphocytes/100 WBC (Bld) 27.5 % 20.5-60.0 [facility] MCH Auto (RBC) [Entitic mass ]on 2023 MCH (RBC) [Entitic mass] 25.0 pg 25.9-34.0 [facility] MCHC Auto (RBC) [Mass/Vol]on 2023 MCHC (RBC) [Mass/Vol] 30.2 g/dL 29.9-35.2 [facility] MCV Auto (RBC) [Entitic vol] on 2023 MCV (RBC) [Entitic vol] 83.0 fL 80.0-94.0 [facility] Monocytes Auto (Bld) [#/Vol] on 2023 Monocytes (Bld) [#/Vol] 1.0 10 3/uL 0.3-0.8 [facility] Monocytes/100 WBC Auto (Bld) on 2023 Monocytes/100 WBC (Bld) 12.1 % 1.7-12.0 [facility] Neutrophils Auto (Bld) [#/Vo l]on 2023 Neutrophils (Bld) [#/Vol] 4.5 10 3/uL 1.4-6.5 [facility] Neutrophils/100 WBC Auto (Bl d)on 2023 Neutrophils/100 WBC (Bld) 57.0 % 43.0-75.0 [facility] No Panel Informationon 10-12 Eosinophils # (Auto) 0.2 10 3/uL 0.0-0.7 [facility] Immature Granulocyte # (Auto) 0.01 10 3/uL 0.00-0.03 [facility] Protein Electrophoresis M-Johnnie Not Observed g/dL Not Observed [facility] Protein Electrophoresis Note Comment . [facility] Comment on above: Protein electrophore sis scan will follow via computer,mail, or residential tech delivery.Performed at: [address] [id number] Director: Terell Silva PhD, Phone: [phone] Platelet mean volume Auto (B ld) [Entitic vol]on 2023 Platelet mean volume (Bld) [Entitic vol] 10.1 fL 9.5-13.5 [facility] Platelets Auto (Bld) [#/Vol] on 2023 Platelets (Bld) [#/Vol] 236 10 3/uL 150-450 [facility] Protein [Mass/volume] in Ser um or Plasmaon 2023 Protein [Mass/Vol] 6.8 g/dL 6.0-8.5 [facility] RBC Auto (Bld) [#/Vol]on RBC (Bld) [#/Vol] 5.23 10 6/uL 4.70-6.10 [facility] Serum globulin measurement ( mass/volume)on 2023 Globulin (S) [Mass/Vol] 2.8 g/dL 2.2-3.9 [facility] Serum or plasma albumin/glob ulin mass ratioon 2023 Albumin/Globulin [Mass ratio] 1.5 {ratio} 0.7-1.7 [facility] Serum or plasma alpha 1 glob ulin measurement by electrophoresis (mass/volume)on 2023 Alpha 1 globulin Elph [Mass/Vol] 0.3 g/dL 0.0-0.4 [facility] Serum or plasma alpha 2 glob ulin measurement by electrophoresis (mass/volume)on 2023 Alpha 2 globulin Elph [Mass/Vol] 0.7 g/dL 0.4-1.0 [facility] Serum or plasma beta globuli n measurement by electrophoresis (mass/volume)on 2023 Beta globulin Elph [Mass/Vol] 1.0 g/dL 0.7-1.3 [facility] Serum or plasma gamma globul in measurement by electrophoresis (mass/volume)on 2023 Gamma globulin Elph [Mass/Vol] 0.8 g/dL 0.4-1.8 [facility] Serum or plasma immunoelectr ophoresis interpretationon 2023 Interpretation IEP [Interp] Comment . [facility] Comment on above: No monoclonality det ected. Aspartate aminotransferase [ Enzymatic activity/volume] in Serum or PlasmaOrdered By: Florence Aden on 08-29-2023 AST [Catalytic activity/Vol] 15 U/L 13-39 [facility] Calcium [Mass/volume] in Ser um or PlasmaOrdered By: Florence Aden on 08-29-2023 Calcium [Mass/Vol] 8.7 mg/dL 8.6-10.3 [facility] Carbon dioxide, total [Moles /volume] in Serum or PlasmaOrdered By: Florence Aden on 08-29-2023 CO2 [Moles/Vol] 26.9 mmol/L 21.0-31.0 [facility] Chloride [Moles/volume] in S ky or PlasmaOrdered By: Florence Aden on 08-29-2023 Chloride [Moles/Vol] 108 mmol/L 98-107 [facility] Creatinine [Mass/volume] in Serum or PlasmaOrdered By: Florence Aden on 08-29-2023 Creatinine [Mass/Vol] 1.11 mg/dL 0.70-1.30 [facility] Glucose [Mass/volume] in Ser um or PlasmaOrdered By: Florence Aden on 08-29-2023 Glucose [Mass/Vol] 95 mg/dL 70-100 [facility] Comment on above: ADA recommended refe rence rangeRandom Glucose Reference Range is dependent on time and content of last meal. Glucose of more than 200 mg/dL in a nonstressed, ambulatory subject supports the diagnosis of Diabetes Mellitus. No Panel InformationOrdered By: Florence Aden on 08-29-2023 Estimated GFR (CKD-EPI) > 60.0 mL/Min [facility] Creatinine Clearance (Chem N/A [facility] Potassium [Moles/volume] in Serum or PlasmaOrdered By: Florence Aden on 08-29-2023 Potassium [Moles/Vol] 4.4 mmol/L 3.5-5.1 [facility] Serum or plasma anion gap de terminationOrdered By: Florence Aden on 08-29-2023 Anion gap [Moles/Vol] 10.5 mmol/L 6.0-15.0 [facility] Sodium [Moles/volume] in Ser um or PlasmaOrdered By: Florence Aden on 08-29-2023 Sodium [Moles/Vol] 141 mmol/L 136-145 [facility] Thyrotropin [Units/volume] i n Serum or PlasmaOrdered By: Florence Aden on 08-29-2023 TSH Qn 2.16 m[IU]/L 0.45-5.33 [facility] Urea nitrogen [Mass/volume] in Serum or PlasmaOrdered By: Florence Aden on 08-29-2023 Urea nitrogen [Mass/Vol] 22 mg/dL 01-18 [facility] ECG 12 Leadon 07-25-2023 Sinus bradycardia, first-degree AV block [facility] Work Phone: [facility] Work Phone: Office Visit (Cardiology)on 03-23-2023 [...] outside facility May 2021 NSTEMI admit at [facility] May 2021 cardiac cath: pLAD patent stent [...] in adult Healthy Weight Tips; Status:Complete; Done: [id number] Patient Instructions Please bring all medicines, vitamins, [...] MG Oral Tablet Delayed ReleaseTAKE 1 TABLET Etx-Dxf-Djmyrh Atorvastatin Calcium 40 MG Oral TabletTAKE 1 [...] content not included)... Normal [facility] Aspartate aminotransferase [ Enzymatic activity/volume] in Serum or PlasmaOrdered By: Alfred Baron on 03-21-2023 AST [Catalytic activity/Vol] 13 U/L 13-39 [facility] Calcium [Mass/volume] in Ser um or PlasmaOrdered By: Alfred Baron on 03-21-2023 Calcium [Mass/Vol] 8.5 mg/dL 8.6-10.3 [facility] Carbon dioxide, total [Moles /volume] in Serum or PlasmaOrdered By: Alfred Baron on 03-21-2023 CO2 [Moles/Vol] 29.7 mmol/L 21.0-31.0 [facility] Chloride [Moles/volume] in S ky or PlasmaOrdered By: Alfred Baron on 03-21-2023 Chloride [Moles/Vol] 107 mmol/L 98-107 [facility] Creatinine [Mass/volume] in Serum or PlasmaOrdered By: Alfred Baron on 03-21-2023 Creatinine [Mass/Vol] 0.97 mg/dL 0.70-1.30 [facility] Glucose [Mass/volume] in Ser um or PlasmaOrdered By: Alfred Baron on 03-21-2023 Glucose [Mass/Vol] 83 mg/dL 70-100 [facility] Comment on above: ADA recommended refe rence rangeRandom Glucose Reference Range is dependent on time and content of last meal. Glucose of more than 200 mg/dL in a nonstressed, ambulatory subject supports the diagnosis of Diabetes Mellitus. No Panel InformationOrdered By: Alfred Baron on 03-21-2023 Estimated GFR (CKD-EPI) > 60.0 mL/Min [facility] Creatinine Clearance (Chem N/A [facility] No Panel Informationon 03-21 > 60.0 Normal [facility] Michael barrios [address] DO Work Phone: [phone] 7.8\S\7.8 Normal 6.0-15.0 [facility] Michael barrios 250 DO Work Phone: [phone] 8.5\S\8.5 below low threshold 8.6-10.3 [facility] Michael barrios 250 DO Work Phone: [phone] 29.7\S\29.7 Normal 21.0-31.0 [facility] Michael barrios 250 DO Work Phone: [phone] 107\S\107 Normal 98-107 [facility] Michael barrios 250 DO Work Phone: [phone] 4.5\S\4.5 Normal 3.5-5.1 [facility] Michael barrios 250 DO Work Phone: [phone] 140\S\140 Normal 136-145 [facility] Michael barrios 250 DO Work Phone: [phone] 0.97\S\0.97 Normal 0.70-1.30 [facility] Michael barrios 250 DO Work Phone: [phone] 18\S\18 Normal 7-25 [facility] Michael barrios 250 DO Work Phone: 83\S\83 Normal 70-100 [facility] Michael barrios 250 DO Work Phone: [phone] Comment on above: Random Glucose Refer ence Range is dependent on time and content of last meal. Glucose of more than 200 mg/dL in a nonstressed, ambulatory subject supports the diagnosis of Diabetes Mellitus. ADA recommended reference range 13\S\13 Normal 13-39 [facility] Michael barrios 250 DO Work Phone: [phone] 1.36\S\1.36 Normal 0.45-5.33 [facility] [employer] [place] 250 DO Work Phone: Comment on above: PERFORMED BY:[facility] [place] [id number] MEDICAL DIRECTORGABINO ARCOS M.D. Potassium [Moles/volume] in Serum or PlasmaOrdered By: Alfred Baron on 03-21-2023 Potassium [Moles/Vol] 4.5 mmol/L 3.5-5.1 [facility] Radiologyon 03-21-2023 XR Chest 2 Views Normal [facility] [address] DO Work Phone: Serum or plasma anion gap de terminationOrdered By: Alfred Baron on 03-21-2023 Anion gap [Moles/Vol] 7.8 mmol/L 6.0-15.0 [facility] Sodium [Moles/volume] in Ser um or PlasmaOrdered By: Alfred Baron on 03-21-2023 Sodium [Moles/Vol] 140 mmol/L 136-145 [facility] Thyrotropin [Units/volume] i n Serum or PlasmaOrdered By: Alfred Baron on 03-21-2023 TSH Qn 1.36 m[IU]/L 0.45-5.33 [facility] Urea nitrogen [Mass/volume] in Serum or PlasmaOrdered By: Alfred Baron on 03-21-2023 Urea nitrogen [Mass/Vol] 18 mg/dL 7-25 [facility] Office Visit (Cardiology)on 01-03-2023 Follow-up visit Diagnoses/Problems Assessed Bradycardia (427.89) (R00.1) August 2021 Holter average HR 64 on no AVN agents Likely element of SSS (although PAF rates > 100) November 2022 [facility] nocturnal bradycardia, no high-grade heart block. Paroxysmal [...] outside facility May 2021 NSTEMI admit at [facility] May 2021 cardiac cath: pLAD patent stent [...] in adult Healthy Weight Tips; Status:Complete; Done: [id number] Patient Instructions Please bring all medicines, vitamins, [...] regarding bradycardia and he completed a 14-day [employer]. Results reviewed including no evidence of high-grade [...] - 200 (more content not included)... Normal [facility] Tobacco Screening.on 023 Fall risk assessment a) No falls within the last year -[facility] [place] 250 DO Work Phone: Tobacco use status CPHS b) No M -[facility] [place] 250 DO Work Phone: Cardiovasc Arrhythmia Result son 12-08-2022 Cardiovasc Arrhythmia Results Reason For Visit Event Monitor: VALENTÍN is here for the application of a 30 day event monitor in office., Diagnosis: bradycardia, afib Ordering Physician: Florence Mora NP Enrollment sent to: [employer] Monitor number [id number] applied. Holter monitor printed and placed on [...] Appointments Date/TimeProviderSpeci altySite 01/03/2023 11:00 Florence Sales APRN-[id number] [employer] 250 DO 07/20/2023 10:00 Brendon Hennessy DOCardiology[address] [place] 250 DO Signatures Electronically signed by : Rose Green MD; Dec 28 2022 10:28PM EST (Author) Normal [facility] Office Visit (Cardiology)on 11-29-2022 Follow-up visit Diagnoses/Problems [...] concerning symptoms May 2021 NSTEMI admit at [facility] Intolerant to plavix and eliquis Daily activity [...] 100 mg daily. October 2022 presented to [facility] due to dizziness. Seen in consultation by [...] surgery History (more content not included)... Normal [facility] Tobacco Screening.on 023 Adult depression screening assessment No [facility] [employer] 250 DO Work Phone: Fall risk assessment a) No falls within the last year [facility] [employer] 250 DO Work Phone: Tobacco use status CPHS b) No M [facility] [employer] [place] 250 DO Work Phone: Alanine aminotransferase [En zymatic activity/volume] in Serum or PlasmaOrdered By: Pedro Corbett on 10-28-2022 ALT [Catalytic activity/Vol] 16 U/L 7 [facility] Albumin [Mass/volume] in Ser um or Plasma by Bromocresol green (BCG) dye binding methoOrdered By: Pedro Corbett on 10-28-2022 Albumin BCG dye [Mass/Vol] 4.0 g/dL 3.5-5.7 [facility] Alkaline phosphatase [Enzyma tic activity/volume] in Serum or PlasmaOrdered By: Pedro Corbett on 10-28-2022 ALP [Catalytic activity/Vol] 66 U/L 34-104 [facility] Aspartate aminotransferase [ Enzymatic activity/volume] in Serum or PlasmaOrdered By: Pedro Corbett on 10-28-2022 AST [Catalytic activity/Vol] 17 U/L 13-39 [facility] Basophils Auto (Bld) [#/Vol] Ordered By: Pedro Corbett on 10-28-2022 Basophils (Bld) [#/Vol] 0.0 10*3/uL 0.0-0.2 [facility] Basophils/100 WBC Auto (Bld) Ordered By: Pedro Corbett on 10-28-2022 Basophils/100 WBC (Bld) 0.4 % . [facility] Bilirubin.total [Mass/volume ] in Serum or PlasmaOrdered By: Pedro Corbett on 10-28-2022 Bilirubin [Mass/Vol] 0.3 mg/dL 0.3-1.0 [facility] Calcium [Mass/volume] in Ser um or PlasmaOrdered By: Pedro Corbett on 10-28-2022 Calcium [Mass/Vol] 8.4 mg/dL 8.6-10.3 [facility] Carbon dioxide, total [Moles /volume] in Serum or PlasmaOrdered By: Pedro Corbett on 10-28-2022 CO2 [Moles/Vol] 26.2 mmol/L 21.0-31.0 [facility] Chloride [Moles/volume] in S ky or PlasmaOrdered By: Pedro Corbett on 10-28-2022 Chloride [Moles/Vol] 106 mmol/L 98-107 [facility] Creatine kinase [Enzymatic a ctivity/volume] in Serum or PlasmaOrdered By: Pedro Corbett on 10-28-2022 CK [Catalytic activity/Vol] 84 U/L 30-223 [facility] Creatinine [Mass/volume] in Serum or PlasmaOrdered By: Pedro Corbett on 10-28-2022 Creatinine [Mass/Vol] 1.20 mg/dL 0.70-1.30 [facility] Eosinophils Auto (Bld) [#/Vo l]Ordered By: Pedro Corbett on 10-28-2022 Eosinophils (Bld) [#/Vol] 0.1 10*3/uL 0.0-0.45 [facility] Eosinophils/100 WBC Auto (Bl d)Ordered By: Pedro Corbett on 10-28-2022 Eosinophils/100 WBC (Bld) 0.9 % . [facility] Erythrocyte distribution wid th Auto (RBC) [Ratio]Ordered By: Pedro Corbett on 10-28-2022 Erythrocyte distribution width (RBC) [Ratio] 19.8 % 12.0-14.8 [facility] Globulin Calc (S) [Mass/Vol] Ordered By: Pedro Corbett on 10-28-2022 Globulin (S) [Mass/Vol] 2.5 g/dL [facility] Glucose [Mass/volume] in Ser um or PlasmaOrdered By: Pedro Corbett on 10-28-2022 Glucose [Mass/Vol] 103 mg/dL 70-100 [facility] [facility] Comment on above: ADA recommended refe rence rangeRandom Glucose Reference Range is dependent on time and content of last meal. Glucose of more than 200 mg/dL in a nonstressed, ambulatory subject supports the diagnosis of Diabetes Mellitus. Hematocrit Auto (Bld) [Volum e fraction]Ordered By: Pedro Corbett on 10-28-2022 Hematocrit (Bld) [Volume fraction] 40.4 % 38.8-50.0 [facility] Hemoglobin [Mass/volume] in BloodOrdered By: Pedro Corbett on 10-28-2022 Hemoglobin (Bld) [Mass/Vol] 12.9 g/dL 13.0-17.0 [facility] Leukocytes [#/volume] correc augustine for nucleated erythrocytes in Blood by Automated counOrdered By: Pedro Corbett on 10-28-2022 WBC corrected for nucl RBC Auto (Bld) [#/Vol] 8.9 10*3/uL 4.1-10.5 [facility] Lymphocytes Auto (Bld) [#/Vo l]Ordered By: Pedro Corbett on 10-28-2022 Lymphocytes (Bld) [#/Vol] 2.2 10*3/uL 1.00-4.8 [facility] Lymphocytes/100 WBC Auto (Bl d)Ordered By: Pedro Corbett on 10-28-2022 Lymphocytes/100 WBC (Bld) 24.4 % . [facility] MCH Auto (RBC) [Entitic mass ]Ordered By: Pedro Corbett on 10-28-2022 MCH (RBC) [Entitic mass] 25.3 pg 27.5-35.2 [facility] MCHC Auto (RBC) [Mass/Vol]Or dered By: Pedro Corbett on 10-28-2022 MCHC (RBC) [Mass/Vol] 31.8 g/dL 32.5-35.6 [facility] MCV Auto (RBC) [Entitic vol] Ordered By: Pedro Corbett on 10-28-2022 MCV (RBC) [Entitic vol] 79.6 fL 83.5-101 F [facility] Magnesium [Mass/volume] in S ky or PlasmaOrdered By: Trena Pena on 10-28-2022 Magnesium [Mass/Vol] 1.9 mg/dL 1.9-2.7 [facility] Monocyte distribution width [Entitic volume] in Blood by AutomatedOrdered By: Pedro Corbett on 10-28-2022 Monocyte distribution width Auto (Bld) [Entitic vol] 16.55 % 0.00-20.00 [facility] Monocytes Auto (Bld) [#/Vol] Ordered By: Pedro Corbett on 10-28-2022 Monocytes (Bld) [#/Vol] 1.0 10*3/uL 0.0-0.8 [facility] Monocytes/100 WBC Auto (Bld) Ordered By: Pedro Corbett on 10-28-2022 Monocytes/100 WBC (Bld) 11.8 % . F [facility] Natriuretic peptide B [Mass/ Vol]Ordered By: Pedro Corbett on 10-28-2022 Natriuretic peptide B (Bld) [Mass/Vol] 148.0 pg/mL 5-100 [facility] Neutrophils Auto (Bld) [#/Vo l]Ordered By: Pedro Corbett on 10-28-2022 Neutrophils (Bld) [#/Vol] 5.6 10*3/uL 1.8-7.7 [facility] Neutrophils/100 WBC Auto (Bl d)Ordered By: Pedro Corbett on 10-28-2022 Neutrophils/100 WBC (Bld) 62.5 % . [facility] No Panel InformationOrdered By: Pedro Corbett on 10-28-2022 Estimated GFR (CKD-EPI) > 60.0 mL/Min [facility] Creatinine Clearance (Chem 53.74 [facility] Nucleated erythrocytes [Pres ence] in Blood by Automated countOrdered By: Pedro Corbett on 10-28-2022 Nucleated RBC Auto Ql (Bld) 0.0 /100{WBC} 0-0.5 [facility] Platelet mean volume Auto (B ld) [Entitic vol]Ordered By: Pedro Corbett on 10-28-2022 Platelet mean volume (Bld) [Entitic vol] 7.8 fL 6.6-10.1 [facility] Platelets Auto (Bld) [#/Vol] Ordered By: Pedro Corbett on 10-28-2022 Platelets (Bld) [#/Vol] 215 10*3/uL 150-450 [facility] Potassium [Moles/volume] in Serum or PlasmaOrdered By: Pedro Corbett on 10-28-2022 Potassium [Moles/Vol] 4.2 mmol/L 3.5-5.1 [facility] Protein [Mass/volume] in Ser um or PlasmaOrdered By: Pedro Corbett on 10-28-2022 Protein [Mass/Vol] 6.5 g/dL 6.4-8.9 [facility] RBC Auto (Bld) [#/Vol]Ordere d By: Pedro Corbett on 10-28-2022 RBC (Bld) [#/Vol] 5.08 10*6/uL 3.90-5.60 [facility] Serum or plasma albumin/glob ulin mass ratioOrdered By: Pedro Corbett on 10-28-2022 Albumin/Globulin [Mass ratio] 1.6 {ratio} [facility] Serum or plasma anion gap de terminationOrdered By: Pedro Corbett on 10-28-2022 Anion gap [Moles/Vol] 11.0 mmol/L 6.0-15.0 [facility] Sodium [Moles/volume] in Ser um or PlasmaOrdered By: Pedro Corbett on 10-28-2022 Sodium [Moles/Vol] 139 mmol/L 136-145 [facility] Thyrotropin [Units/volume] i n Serum or PlasmaOrdered By: Karol Sage on 10-28-2022 TSH Qn 2.15 m[IU]/L 0.45-5.33 [facility] Troponin I.cardiac [Mass/vol ume] in Serum or Plasma by Detection limit <= 0.01 ng/Ordered By: Pedro Corbett on 10-28-2022 Troponin I.cardiac DL <= 0.01 ng/mL [Mass/Vol] 7.4 pg/mL 0.0-20.0 [facility] Urea nitrogen [Mass/volume] in Serum or PlasmaOrdered By: Pedro Corbett on 10-28-2022 Urea nitrogen [Mass/Vol] 23 mg/dL 7-25 [facility] WBC Auto (Bld) [#/Vol]Ordere d By: Pedro Corbett on 10-28-2022 WBC (Bld) [#/Vol] 8.9 10*3/uL 4.1-10.5 [facility] CBC AUTO DIFFon 10-20-2022 BASO # 0.0 103/ul Normal 0.0-0.1 [facility] Comment on above: Performed By: #### C VDTB #### [facility] [address] [address] [address] Steve Sevilla Basophils/100 WBC (Bld) 0.4 % Normal 0.2-2.0 [facility] Comment on above: Performed By: #### C VDTBH #### [facility] [address] [address] [address] Steve Sevilla EO # 0.1 103/ul Normal 0.0-0.7 [facility] Comment on above: Performed By: #### C VDTBH #### [facility] [address] [address] [address] Steve Sevilla Eosinophils/100 WBC (Bld) 1.1 % Normal 0.9-7.0 [facility] Comment on above: Performed By: #### C VDTBH #### [facility] [address] [place] [address] Dr. Steve Sevilla Erythrocyte distribution width (RBC) [Ratio] 18.6 % Critically high 11.0-15.0 [facility] Comment on above: Performed By: #### C VDTBH #### [facility] [address] [place] [address] Dr. Steve Sevilla Hematocrit (Bld) [Volume fraction] 42.9 % Normal 42.0-54.0 [facility] Comment on above: Performed By: #### C VDTBH #### [facility] [address] [place] [address] Dr. Steve Sevilla Hemoglobin (Bld) [Mass/Vol] 13.0 g/dL Critically low 14.0-18.0 [facility] Comment on above: Performed By: #### C VDTBH #### [facility] [address] [place] [address] Dr. Steve Sevilla IG # 0.03 10e3/ul Normal 0.00-0.03 [facility] Comment on above: Performed By: #### C VDTBH #### [facility] [address] [place] [address] Dr. Steve Sevilla IG % 0.3 % Normal 0.0-0.5 [facility] Comment on above: Performed By: #### C VDTBH #### [facility] [address] [place] [address] Dr. Steve Sevilla LYMPH # 2.6 103/ul Normal 1.2-3.8 [facility] Comment on above: Performed By: #### C VDTBH #### [facility] [address] [place] [address] Dr. Steve Sevilla Lymphocytes/100 WBC (Bld) 23.1 % Normal 20.5-60.0 [facility] Comment on above: Performed By: #### C VDTBH #### [facility] [address] [place] [address] Dr. Steve Sevilla MANUAL DIFF REQ NO Normal [facility] Comment on above: Performed By: #### C VDTBH #### [facility] [address] [place] [address] Dr. Steve Sevilla MCH (RBC) [Entitic mass] 25.0 pg Critically low 25.9-34 .0 [facility] Comment on above: Performed By: #### C VDTBH #### [facility] [address] [place] [address] Dr. Steve Sevilla MCHC (RBC) [Mass/Vol] 30.3 g/dL Normal 29.9-35.2 [facility] Comment on above: Performed By: #### C VDTBH #### [facility] [address] [place] [address] Dr. Steve Sevilla MCV (RBC) [Entitic vol] 82.7 fL Normal 80.0-94.0 [facility] Comment on above: Performed By: #### C VDTBH #### [facility] [address] [place] [address] Dr. Steve Sevilla MONO # 1.2 103/ul Critically high 0.3-0.8 [facility] Comment on above: Performed By: #### C VDTBH #### [facility] [address] [place] [address] Dr. Steve Sevilla Monocytes/100 WBC (Bld) 10.6 % Normal 1.7-12.0 [facility] Comment on above: Performed By: #### C VDTBH #### [facility] [address] [place] [address] Dr. Steve Sevilla NEUT # 7.2 103/ul Critically high 1.4-6.5 [facility] Comment on above: Performed By: #### C VDTBH #### [facility] [address] [place] [address] Dr. Steve Sevilla Neutrophils/100 WBC (Bld) 64.5 % Normal 43.0-75.0 [facility] Comment on above: Performed By: #### C VDTBH #### [facility] [address] [place] [address] Dr. Steve Sevilla Platelet mean volume (Bld) [Entitic vol] 8.9 fL Critically low 9.5-13.5 [facility] Comment on above: Performed By: #### C VDTBH #### [facility] [address] [place] [address] Dr. Steve Sevilla PLT 248 103/ul Normal 150-450 [facility] Comment on above: Performed By: #### C VDTBH #### [facility] [address] [place] [address] Dr. Steve Sevilla RBC 5.19 106/ul Normal 4.70-6.10 [facility] Comment on above: Performed By: #### C VDTBH #### [facility] [address] [place] [address] Dr. Steve Sevilla WBC 11.2 103/ul Critically high 4.0-11.0 [facility] Comment on above: Performed By: #### C VDTBH #### [facility] [address] [place] [address] Dr. Steve Sevilla FERRITINon 10-20-2022 Ferritin [Mass/Vol] 12.0 ng/mL Critically low 26.0-388.0 [facility] Comment on above: Performed By: #### F ETIBC, FERR #### [facility] [address] [place] [address] Dr. Steve Sevilla IRON AND TIBCon 10-20-2022 % SATURATION 12.1 % Normal [facility] Comment on above: Performed By: #### F ETIBC, FERR #### [facility] [address] [place] [address] Dr. Stvee Sevilla Iron [Mass/Vol] 47.0 ug/dL Critically low 65.0-175.0 [facility] Comment on above: Performed By: #### F ETIBC, FERR #### [facility] [address] [place] [address] Dr. Steve Sevilla TIBC DIRECT 387.0 ug/dL Normal 250.0-450.0 [facility] Comment on above: Performed By: #### F ETIBC, FERR #### [facility] [address] [address] [address] Steve Sevilla Aspartate aminotransferase [ Enzymatic activity/volume] in Serum or PlasmaOrdered By: Alfred Baron on 10-15-2022 AST [Catalytic activity/Vol] 23 U/L 13-39 [facility] Calcium [Mass/volume] in Ser um or PlasmaOrdered By: Alfred Baron on 10-15-2022 Calcium [Mass/Vol] 8.4 mg/dL 8.6-10.3 [facility] Carbon dioxide, total [Moles /volume] in Serum or PlasmaOrdered By: Alfred Baron on 10-15-2022 CO2 [Moles/Vol] 28.2 mmol/L 21.0-31.0 [facility] Chloride [Moles/volume] in S ky or PlasmaOrdered By: Alfred Baron on 10-15-2022 Chloride [Moles/Vol] 106 mmol/L 98-107 [facility] Creatinine [Mass/volume] in Serum or PlasmaOrdered By: Alfred Baron on 10-15-2022 Creatinine [Mass/Vol] 1.13 mg/dL 0.70-1.30 [facility] Glucose [Mass/volume] in Ser um or PlasmaOrdered By: Alfred Baron on 10-15-2022 Glucose [Mass/Vol] 88 mg/dL 70-100 [facility] Comment on above: ADA recommended refe rence rangeRandom Glucose Reference Range is dependent on time and content of last meal. Glucose of more than 200 mg/dL in a nonstressed, ambulatory subject supports the diagnosis of Diabetes Mellitus. No Panel InformationOrdered By: Alfred Baron on 10-15-2022 Estimated GFR (CKD-EPI) > 60.0 mL/Min [facility] Creatinine Clearance (Chem N/A [facility] No Panel Informationon 10-15 > 60.0 Normal [facility] [place] [address] DO Work Phone: 10.4\S\10.4 Normal 6.0-15.0 [facility] [address] DO Work Phone: 8.4\S\8.4 below low threshold 8.6-10.3 [facility] Michael barrios 250 DO Work Phone: 28.2\S\28.2 Normal 21.0-31.0 [facility] Michael [address] 250 DO Work Phone: 106\S\106 Normal 98-107 [facility] Michael [address]rios 250 DO Work Phone: 4.6\S\4.6 Normal 3.5-5.1 [facility] Michael [address] DO Work Phone: 140\S\140 Normal 136-145 [facility] Michael Crandall DO Work Phone: 1.13\S\1.13 Normal 0.70-1.30 [facility] Michael Crandall DO Work Phone: 19\S\19 Normal 7-25 [facility] Michael Crandall DO Work Phone: 88\S\88 Normal 70-100 [facility] Michael Crandall DO Work Phone: Comment on above: Random Glucose Refer ence Range is dependent on time and content of last meal. Glucose of more than 200 mg/dL in a nonstressed, ambulatory subject supports the diagnosis of Diabetes Mellitus. ADA recommended reference range 23\S\23 Normal 13-39 [facility] Michael Crandall DO Work Phone: 1.66\S\1.66 Normal 0.45-5.33 [facility] Michael [address] DO Work Phone: Comment on above: PERFORMED BY:[facility] [place], [place] [phone] MEDICAL DIRECTORGABINO ARCOS M.D. Potassium [Moles/volume] in Serum or PlasmaOrdered By: Alfred Baron on 10-15-2022 Potassium [Moles/Vol] 4.6 mmol/L 3.5-5.1 [facility] Radiologyon 10-15-2022 XR Chest 2 Views Normal [facility] [address] DO Work Phone: Serum or plasma anion gap de terminationOrdered By: Alfred Baron on 10-15-2022 Anion gap [Moles/Vol] 10.4 mmol/L 6.0-15.0 [facility] Sodium [Moles/volume] in Ser um or PlasmaOrdered By: Alfred Baron on 10-15-2022 Sodium [Moles/Vol] 140 mmol/L 136-145 [facility] Thyrotropin [Units/volume] i n Serum or PlasmaOrdered By: Alfred Baron on 10-15-2022 TSH Qn 1.66 m[IU]/L 0.45-5.33 [facility] Urea nitrogen [Mass/volume] in Serum or PlasmaOrdered By: Alfred Baron on 10-15-2022 Urea nitrogen [Mass/Vol] 19 mg/dL 7-25 [facility] Office Visit (Cardiology)on 07-15-2022 Follow-up visit [...] cardiovascular complaints. He status post non-ST elevation TX May 2021, with a history of ASHD and prior three-vessel PCI in [place]. 1 of those events was for an inferior TX with revascularization of the RCA. Patient is notably severely allergic to Plavix and Effient. He has no history of stroke or bleeding disorder cancer peripheral vascular disease Has had mild paroxysmal atrial fibrillation, successfully treated with low-dose amiodarone, Eliquis with no bleeding or thromboembolic events recurrence of A. fib Today's ECG reveals sinus bradycardia with a TN interval 266, QT corrected interval 457, and evidence of Q waves inferior TX indeterminate age. Heart catheterization in May 2021 performed by myself revealed patent LAD and circumflex stents, first OM branch was occluded and treated conservatively. Is otherwise doing well without any angina or recurrent A. fib He is asking about coming off of Eliquis and because of his elevated [id number] score I recommended he stay on Eliquis [...] cups daily Former smoker (V15.82) (Z87.891) quit No illicit drug use Review of Systems [...] Signs Recorded: 15Jul2022 10:06AM Heart Rate50, Apical Otpanaix446, LUE, Sitting Grikfjmzv51, LUE, Sitting Height5 ft 9 in Pnklbc231 lb BMI Rowzqfvczx64.94 kg/m2 BSA Calculated2.05 Tobacco Useb) No PHQ-2 #1. Over the (more content not included)... Normal [facility] Tobacco Screening.on 023 Adult depression screening assessment No [facility] [employer] 250 DO Work Phone: Fall risk assessment b) One or more fall s in the last year [facility] [employer] 250 DO Work Phone: Tobacco use status CPHS b) No M [facility] [employer] 250 DO Work Phone: Creatinine and Glomerular fi ltration rate.predicted panel (S/P/Bld)Ordered By: Alfred Baron on 07-12-2022 Creatinine [Mass/Vol] 1.02 mg/dL 0.64-1.27 [facility] Estimated glomerular filtrat ion rate (GFR) non- AmericanOrdered By: Alfred Baron on 07-12-2022 GFR/1.73 sq M.predicted among non-blacks MDRD (S/P/Bld) [Vol rate/Area] > 60 mL/Min [facility] No Panel InformationOrdered By: Alfred Baron on 07-12-2022 Estimated GFR () > 60 mL/Min [facility] Comment on above: GFR estimated refere nce range: According to KDOQI guidelines, <60 ml/min/1.73m2 is sufficient to diagnose a patient with chronic kidney disease. Pharmacy Creatinine Clearance (Chem N/A [facility] No Panel Informationon 07-12 10.7\S\10.7 Normal 6.0-15.0 [facility] [employer] [place] [address] DO Work Phone: [phone] 9.0\S\9.0 Normal 8.2-10.2 [facility] [employer] [place] [address] DO Work Phone: 26.7\S\26.7 Normal 22.0-30.0 [facility] [address] DO Work Phone: 106\S\106 Normal 95-114 [facility] [employer] [place] [address] DO Work Phone: 4.4\S\4.4 Normal 3.5-5.1 [facility] [address] DO Work Phone: 139\S\139 Normal 136-146 [facility] [employer] [place] [address] DO Work Phone: > 60 Normal [facility] [employer] [place] [address] DO Work Phone: Comment on above: GFR estimated refere nce range: According to KDOQI guidelines, <60 ml/min/1.73m2 is sufficient to diagnose a patient with chronic kidney disease. 1.02\S\1.02 Normal 0.64-1.27 [facility] [employer] [place] [address] DO Work Phone: 18\S\18 Normal 9-23 [facility] [address] DO Work Phone: 86\S\86 Normal 70-100 [facility] [address] 250 DO Work Phone: Comment on above: Random Glucose Refer ence Range is dependent on time and content of last meal. Glucose of more than 200 mg/dL in a nonstressed, ambulatory subject supports the diagnosis of Diabetes Mellitus. ADA recommended reference range 22\S\22 Normal 10-42 [facility] Work Phone: 1.82\S\1.82 Normal 0.45-5.33 [facility] denis 250 DO Work Phone: Comment on above: PERFORMED BY:[address] [place], [place] [id number] MEDICAL DIRECTORGABINO ARCOS M.D. Radiologyon 07-12-2022 XR Chest [address] [facility] [address] DO Work Phone: Serum or plasma anion gap de terminationOrdered By: Alfred Baron on 07-12-2022 Anion gap [Moles/Vol] 10.7 mmol/L 6.0-15.0 [facility] Serum or plasma aspartate am inotransferase measurement (enzymatic activity/volume)Ordered By: Alfred Baron on 07-12-2022 AST [Catalytic activity/Vol] 22 U/L 10-42 [facility] Serum or plasma calcium sean urement (mass/volume)Ordered By: Alfred Baron on 07-12-2022 Calcium [Mass/Vol] 9.0 mg/dL 8.2-10.2 [facility] Serum or plasma chloride nicolasa surement (moles/volume)Ordered By: Alfred Baron on 07-12-2022 Chloride [Moles/Vol] 106 mmol/L 95-114 [facility] Serum or plasma glucose sean urement (mass/volume)Ordered By: Alfred Baron on 07-12-2022 Glucose [Mass/Vol] 86 mg/dL 70-100 [facility] Comment on above: ADA recommended refe rence rangeRandom Glucose Reference Range is dependent on time and content of last meal. Glucose of more than 200 mg/dL in a nonstressed, ambulatory subject supports the diagnosis of Diabetes Mellitus. Serum or plasma potassium me asurement (moles/volume)Ordered By: Alfred Baron on 07-12-2022 Potassium [Moles/Vol] 4.4 mmol/L 3.5-5.1 [facility] Serum or plasma sodium measu rement (moles/volume)Ordered By: Alfred Baron on 07-12-2022 Sodium [Moles/Vol] 139 mmol/L 136-146 [facility] Serum or plasma total carbon dioxide measurement (moles/volume)Ordered By: Alfred Baron on 07-12-2022 CO2 [Moles/Vol] 26.7 mmol/L 22.0-30.0 [facility] Serum or plasma urea nitroge n measurement (mass/volume)Ordered By: Alfred Baron on 07-12-2022 Urea nitrogen [Mass/Vol] 18 mg/dL 9-23 [facility] TSH DL <= 0.005 mIU/L QnOrde red By: Alfred Baron on 07-12-2022 TSH Qn 1.82 m[IU]/L 0.45-5.33 [facility] Covid-19 PCR ([facility])on 05-28 SARS-CoV-2 (COVID-19) RNA LO+probe Ql (Unsp spec) Not detected Normal NOT DETECTED [facility] Comment on above: Result Comment: This test is not yet approved or cleared by the [place] FDA. When there are no FDA-approved or cleared tests available, and other criteria are met, FDA can make tests available under an emergency access mechanism called an Emergency Use Authorization (EUA). The EUA for this test is supported by the [employer] Operator of Health and Human Service's (HHS's) declaration [...] SARS-CoV-2. Performed By: #### C VDTBH #### [facility] [address] [place] [address] Dr. Steve Sevilla INFLUENZA A AND B AGon 06-[address] [facility] BEL[facility] Normal [facility] Comment on above: Result Comment: Nega tive for Flu B protein antigen. Infection due to Flu B cannot be ruled out. Flu B antigen in the sample may be below the detection limit of the test. Performed By: #### C VDTBH #### [facility] [address] [place] [address] Dr. Steve Sevilla INFLUENZA A AG Positive Abnormal NEGATIVE SEE COMMENT [facility] Comment on above: Performed By: #### C VDTBH #### [facility] [address] [place] [address] Dr. Steve Sevilla INFLUENZA B AG Negative Normal NEGATIVE SEE COMMENT [facility] Comment on above: Performed By: #### C VDTBH #### [facility] [address] [place] [address] Dr. Steve Sevilla INFLUPOS SEE BELOW Normal [facility] Comment on above: Result Comment: NOTE : Live attenuated influenzae vaccine viruses can cause a positive result for a rapid influenza diagnostic test if administered up to 7 days prior to rapid testing. Performed By: #### C VDTBH #### [facility] [address] [place] [address] Dr. Steve Sevilla INTERNAL CONTROLS Within Normal Limits Normal Wi thin Normal Limits [facility] Comment on above: Performed By: #### C VDTBH #### [facility] [address] [place] [address] Dr. Steve Sevilla CBC AUTO DIFFon 04-20-2022 BASO # 0.0 103/ul Normal 0.0-0.1 [facility] Comment on above: Performed By: #### C BC #### [facility] [address] [place] [address] Dr. Steve Sevilla Basophils/100 WBC (Bld) 0.4 % Normal 0.2-2.0 [facility] Comment on above: Performed By: #### C BC #### [facility] [address] [place] [address] Dr. Steve Sevilla EO # 0.1 103/ul Normal 0.0-0.7 [facility] Comment on above: Performed By: #### C BC #### [facility] [address] [place] [address] Dr. Steve Sevilla Eosinophils/100 WBC (Bld) 1.5 % Normal 0.9-7.0 [facility] Comment on above: Performed By: #### C BC #### [facility] [address] [place] [address] Dr. Steve Sevilla Erythrocyte distribution width (RBC) [Ratio] 16.5 % Critically high 11.0-15.0 [facility] Comment on above: Performed By: #### C BC #### [facility] [address] [place] [address] Dr. Steve Sevilla Hematocrit (Bld) [Volume fraction] 43.1 % Normal 42.0-54.0 [facility] Comment on above: Performed By: #### C BC #### [facility] [address] [place] [address] Dr. Steve Sevilla Hemoglobin (Bld) [Mass/Vol] 13.3 g/dL Critically low 14.0-18.0 [facility] Comment on above: Performed By: #### C BC #### [facility] [address] [place] [address] Dr. Steve Sevilla IG # 0.02 10e3/ul Normal 0.00-0.03 [facility] Comment on above: Performed By: #### C BC #### [facility] [address] [place] [address] Dr. Steve Sevilla IG % 0.2 % Normal 0.0-0.5 [facility] Comment on above: Performed By: #### C BC #### [facility] [address] [place] [address] Dr. Steve Sevilla LYMPH # 2.6 103/ul Normal 1.2-3.8 [facility] Comment on above: Performed By: #### C BC #### [facility] [address] [place] [address] Dr. Steve Sevilla Lymphocytes/100 WBC (Bld) 27.8 % Normal 20.5-60.0 [facility] Comment on above: Performed By: #### C BC #### [facility] [address] [place] [address] Dr. Steve Sevilla MANUAL DIFF REQ NO Normal [facility] Comment on above: Performed By: #### C BC #### [facility] [address] [place] [address] Dr. Steve Sevilla MCH (RBC) [Entitic mass] 27.3 pg Normal 25.9-34.0 [facility] Comment on above: Performed By: #### C BC #### [facility] [address] [place] [address] Dr. Steve Sevilla MCHC (RBC) [Mass/Vol] 30.9 g/dL Normal 29.9-35.2 [facility] Comment on above: Performed By: #### C BC #### [facility] [address] [place] [address] Dr. Steve Sevilla MCV (RBC) [Entitic vol] 88.3 fL Normal 80.0-94.0 [facility] Comment on above: Performed By: #### C BC #### [facility] [address] [place] [address] Dr. Steve Sevilla MONO # 1.5 103/ul Critically high 0.3-0.8 [facility] Comment on above: Performed By: #### C BC #### [facility] [address] [place] [address] Dr. Steve Sevilla Monocytes/100 WBC (Bld) 15.8 % Critically high 1.7-12. 0 [facility] Comment on above: Performed By: #### C BC #### [facility] [address] [place] [address] Dr. Steve Sevilla NEUT # 5.0 103/ul Normal 1.4-6.5 [facility] Comment on above: Performed By: #### C BC #### [facility] [address] [address] [address] Steve Sevilla Neutrophils/100 WBC (Bld) 54.3 % Normal 43.0-75.0 [facility] Comment on above: Performed By: #### C BC #### [facility] [address] [address] [address] Steve Sevilla Platelet mean volume (Bld) [Entitic vol] 9.2 fL Critically low 9.5-13.5 [facility] Comment on above: Performed By: #### C BC #### [facility] [address] [place] [address] Dr. Steve Sevilla PLT 239 103/ul Normal 150-450 [facility] Comment on above: Performed By: #### C BC #### [facility] [address] [place] [address] Dr. Steve Sevilla RBC 4.88 106/ul Normal 4.70-6.10 [facility] Comment on above: Performed By: #### C BC #### [facility] [address] [address] [address] Steve Sevilla WBC 9.3 103/ul Normal 4.0-11.0 [facility] Comment on above: Performed By: #### C BC #### [facility] [address] [place] [address] Dr. Steve Sevilla [facility]27 SARS-CoV-2 (COVID-19) RNA LO+probe Ql (Unsp spec) Not detected Normal NOT DETECTED [facility] Comment on above: Result Comment: This test is not yet approved or cleared by the [place] FDA. When there are no FDA-approved or cleared tests available, and other criteria are met, FDA can make tests available under an emergency access mechanism called an Emergency Use Authorization (EUA). The EUA for this test is supported by the [place] of Health and Human Service's (HHS's) declaration [...] consistent with SARS-CoV-2. Performed By: #### C [facility] #### [facility] [address] [address] [address] Steve Sevilla Creatinine and Glomerular fi ltration rate.predicted panel (S/P/Bld)Ordered By: Alfred Baron on 03-24-2022 Creatinine [Mass/Vol] 1.17 mg/dL 0.64-1.27 [facility] Estimated glomerular filtrat ion rate (GFR) non- AmericanOrdered By: Alfred Baron on 03-24-2022 GFR/1.73 sq M.predicted among non-blacks MDRD (S/P/Bld) [Vol rate/Area] 60 mL/Min [facility] No Panel InformationOrdered By: Alferd Baron on 03-24-2022 Estimated GFR () > 60 mL/Min [facility] Comment on above: GFR estimated refere nce range: According to KDOQI guidelines, <60 ml/min/1.73m2 is sufficient to diagnose a patient with chronic kidney disease. Pharmacy Creatinine Clearance (Chem N/A [facility] Serum or plasma anion gap de terminationOrdered By: Alfred Baron on 03-24-2022 Anion gap [Moles/Vol] 13.5 mmol/L 6.0-15.0 [facility] Serum or plasma aspartate am inotransferase measurement (enzymatic activity/volume)Ordered By: Alfred Baron on 03-24-2022 AST [Catalytic activity/Vol] 19 U/L 10-42 [facility] Serum or plasma calcium sean urement (mass/volume)Ordered By: Alfred Baron on 03-24-2022 Calcium [Mass/Vol] 8.7 mg/dL 8.2-10.2 [facility] Serum or plasma chloride nicolasa surement (moles/volume)Ordered By: Alfred Baron on 03-24-2022 Chloride [Moles/Vol] 100 mmol/L 95-114 [facility] Serum or plasma glucose sean urement (mass/volume)Ordered By: Alfred Baron on 03-24-2022 Glucose [Mass/Vol] 147 mg/dL 70-100 [facility] Comment on above: ADA recommended refe rence rangeRandom Glucose Reference Range is dependent on time and content of last meal. Glucose of more than 200 mg/dL in a nonstressed, ambulatory subject supports the diagnosis of Diabetes Mellitus. Serum or plasma potassium me asurement (moles/volume)Ordered By: Alfred Baron on 03-24-2022 Potassium [Moles/Vol] 4.2 mmol/L 3.5-5.1 [facility] Serum or plasma sodium measu rement (moles/volume)Ordered By: Alfred Baron on 03-24-2022 Sodium [Moles/Vol] 138 mmol/L 136-146 [facility] Serum or plasma total carbon dioxide measurement (moles/volume)Ordered By: Alfred Baron on 03-24-2022 CO2 [Moles/Vol] 28.7 mmol/L 22.0-30.0 [facility] Serum or plasma urea nitroge n measurement (mass/volume)Ordered By: Alfred Baron on 03-24-2022 Urea nitrogen [Mass/Vol] 17 mg/dL 9-23 [facility] TSH DL <= 0.005 mIU/L QnOrde red By: Alfred Baron on 03-24-2022 TSH Qn 2.20 m[IU]/L 0.45-5.33 [facility] MRI LSPINE WO CONon 01-09-20 MRI [...] KIKA CHO Date: 2022-01-07 22:16 Normal [facility] Tobacco Screening.on 022 Fall risk assessment a) No falls within the last year [facility] [employer] [place] [address] DO Work Phone: Tobacco use status CPHS b) No M [facility] [employer] [place] [address] DO Work Phone: XR LSPINE MIN 4 VIEWSon XR LSPINE MIN 4 VIEWS EXAMINATION: XR [...] LYNDA BYNUM Date: 2021-12-30 12:12 Normal [facility] Tobacco Screening.on Fall risk assessment a) No falls within the last year -[facility] [address] DO Work Phone: [phone] Tobacco use status CPHS b) No M -[facility] [address] DO Work Phone: [phone] Tobacco Screening.on Adult depression screening assessment No [facility] [address] DO Work Phone: [phone] Tobacco use status CPHS b) No M -[facility] [address] DO Work Phone: [phone] PHQ-2 [facility] 09-02-2021 Adult depression screening assessment No [facility] [address] DO Work Phone: [phone] Tobacco Screening.on Fall risk assessment a) No falls within the last year -[facility] [address] DO Work Phone: [phone] Tobacco use status CPHS b) No M -[facility] [address] DO Work Phone: [phone] Tobacco Screening.on Fall risk assessment a) No falls within the last year -[facility] [address] DO Work Phone: [phone] Tobacco use status CPHS b) No M -[facility] [address] DO Work Phone: [phone] BASIC METABOLIC PANELon 11-1 Calcium mass conc 8.5 mg/dL Low 8.6-10.3 [facility] Comment on above: Order Comment: No: D o not add to previous draw Performed By: #### 3 8390, [id number] ####[facility] [place] [address], [facility] Chloride molar conc 107 mmol/L Normal 98-107 [facility] Comment on above: Order Comment: No: D o not add to previous draw Performed By: #### 3 6400, 82683 ####[facility] [place] [address], [facility] CO2 molar conc 29 mmol/L Normal 21-31 [facility] Comment on above: Order Comment: No: D o not add to previous draw Performed By: #### 3 5199, 83989 ####[facility] [place] [address], [place] Creatinine mass conc 0.89 mg/dL Normal 0.70-1.30 [facility] Comment on above: Order Comment: No: D o not add to previous draw Performed By: #### 3 5199, 87274 ####[facility] [place] [address], [facility] GFR/1.73 sq M predicted among blacks MDRD vol rate/area (S/P/Bld) mL/min/{1.73_m2} Normal >60 [facility] Comment on above: Order Comment: No: D o not add to previous draw Result Comment: Calc ulation may not be valid for patients over 70 years Performed By: #### 3 5199, 82973 ####[facility] [place] [address], [place] GFR/1.73 sq M predicted among non-blacks MDRD vol rate/area (S/P/Bld) mL/min/{1.73_m2} Normal >60 [facility] Comment on above: Order Comment: No: D o not add to previous draw Result Comment: Calc ulation may not be valid for patients over 70 years Performed By: #### 3 5199, 65365 ####[facility] [place] [address], [place] Glucose mass conc 95 mg/dL Normal 70-100 [facility] Comment on above: Order Comment: No: D o not add to previous draw Performed By: #### 3 5199, 74407 ####[facility] [place] [address], [place] Potassium molar conc 3.8 mmol/L Normal 3.5-5.1 [facility] Comment on above: Order Comment: No: D o not add to previous draw Performed By: #### 3 5200, 42717 ####[facility] [facility] Sodium molar conc 141 mmol/L Normal 136-145 [facility] Comment on above: Order Comment: No: D o not add to previous draw Performed By: #### 3 0, 25306 ####[facility] [facility].[address] Urea nitrogen mass conc 19 mg/dL Normal 7-25 T [facility] Comment on above: Order Comment: No: D o not add to previous draw Performed By: #### 3 0, 89320 ####[facility] [facility].[address] CBC COMPLETE BLOOD COUNTon 07-10-2017 Erythrocyte distribution width Auto Ratio (RBC) 13.2 % Normal 11.5-15.0 [facility] Comment on above: Order Comment: No: D o not add to previous draw Performed By: #### 5 0608 ####[facility] [facility].[address] Hematocrit Auto Volume Fraction (Bld) 44.5 % Normal 39.0-50.0 [facility] Comment on above: Order Comment: No: D o not add to previous draw Performed By: #### 5 0608 ####[facility] [facility].[address] Hemoglobin mass conc (Bld) 15.0 g/dL Normal 13.0-17.0 [facility] Comment on above: Order Comment: No: D o not add to previous draw Performed By: #### 5 0608 ####[facility] [place] [address], [facility] MCH Auto Entitic mass (RBC) 31.1 pg Normal 27.0-33.0 [facility] Comment on above: Order Comment: No: D o not add to previous draw Performed By: #### 5 0608 ####[facility] MCHC Auto mass conc (RBC) 33.7 g/dL Normal 32.0-35.0 [facility] Comment on above: Order Comment: No: D o not add to previous draw Performed By: #### 5 0608 ####[facility] MCV Auto Entitic volume (RBC) 92.1 fL Normal 82.0-98.0 [facility] Comment on above: Order Comment: No: D o not add to previous draw Performed By: #### 5 0608 ####[facility] Nucleated RBC/100 WBC Ratio (Bld) 0 % Normal 0-0 [facility] Comment on above: Order Comment: No: D o not add to previous draw Performed By: #### 5 0608 ####[facility] PLAT CNT 179 10*3/uL Normal 150-400 [facility] Comment on above: Order Comment: No: D o not add to previous draw Performed By: #### 5 0608 ####[facility] [facility].[address] RBC Auto #/vol (Bld) 4.83 10*6/uL Normal 4.20-5.70 Th e [facility] Comment on above: Order Comment: No: D o not add to previous draw Performed By: #### 5 0608 ####[facility] WBC Auto #/vol (Bld) 7.52 10*3/uL Normal 4.00-10.60 Th e [facility] Comment on above: Order Comment: No: D o not add to previous draw Performed By: #### 5 0608 ####[facility] History and Physicalon 05-10 History and Physical MR#: [id number] Valentín Buckner Admitted: 05/09/2018 Date of : 1940 Attending Physician: Niki Ross MD Room #: [id number] Discharge Date: HISTORY AND PHYSICALHISTORY OF PRESENT ILLNESS: The patient is a 77[facility]year-[facility] was [facility] [...] had a brother in the 40s with [place].REVIEW OF SYSTEMS: Again, mostly the 2 things [...] depressedor suicidal. SKIN: Intact.LABORATORY DATA: Again at [facility], the patient had EKG, whichshowed sinus [...] 05/09/2018/09:16 P/Niki Ross MDDate Trans: 05/10/2018 05:14 A/mmAnastasiaN_JN:[id number] Normal [facility] TROPONIN-Ion 05-10-2018 Troponin I.cardiac mass conc 0.01 ng/mL Normal 0.00-0.04 [facility] Comment on above: Order Comment: No: D o not add to previous draw Result Comment: REFE RENCE RANGES: 0.00 - 0.04 ng/ml NORMAL 0.05 - 0.50 ng/ml INDETERMINATE > 0.50 ng/ml CONSISTENT WITH AN M.I. Performed By: #### 3 5200, 25652 ####[facility] [facility].[address] Troponin I.cardiac mass conc 0.01 ng/mL Normal 0.00-0.04 [facility] Comment on above: Order Comment: No: D o not add to previous draw Result Comment: REFE RENCE RANGES: 0.00 - 0.04 ng/ml NORMAL 0.05 - 0.50 ng/ml INDETERMINATE > 0.50 ng/ml CONSISTENT WITH AN M.I. Performed By: #### 3 5200 ####[facility] [facility].[address] TROPONIN-Ion 05-09-2018 Troponin I.cardiac mass conc 0.00 ng/mL Normal 0.00-0.04 [facility] Comment on above: Order Comment: No: D o not add to previous draw Result Comment: REFE RENCE RANGES: 0.00 - 0.14 ng/ml NEGATIVE 0.15 - 0.25 ng/ml INDETERMINATE > 0.25 ng/ml INDICATIVE OF AN M.I. Performed By: #### 3 5200 ####[facility] [facility].[address] Vital Signs Date Time Vital Sign Value Performing Clinician Facility 11-30-2024 13:56-0400 Body height 175.[address] [facility] 11-30-2024 13:56-0400 Body mass index (BMI) [Ratio] 29 kg/m2 [facility] 11-30-2024 13:56-0400 Body weight 89.[address] [facility] 11-30-2024 13:56-0400 Diastolic blood pressure 81 mm[Hg] [facility] 11-30-2024 13:56-0400 Heart rate 62 /min [facility] 11-30-2024 13:56-0400 Respiratory rate 12 /min [facility] 11-30-2024 13:56-0400 Systolic blood pressure 147 mm[Hg] [facility] 11-16-2024 11:27-0400 Body height 175.26 cm Irving Ball DO Work Phone: [facility] 11-16-2024 11:27-0400 Body mass index (BMI) [Ratio] 28.8 kg/m2 Irving Ball DO Work Phone: [facility] 11-16-2024 11:27-0400 Body weight 88.62 kg Irving Ball DO Work Phone: [facility] 11-16-2024 11:27-0400 Diastolic blood pressure 86 mm[Hg] Irving Ball DO Work Phone: [facility] 11-16-2024 11:27-0400 Diastolic blood pressure 89 mm[Hg] [facility] 11-16-2024 11:27-0400 Heart rate 61 /min Irving Ball DO Work Phone: [facility] 11-16-2024 11:27-0400 Respiratory rate 12 /min Irving Ball DO Work Phone: [facility] 11-16-2024 11:27-0400 Systolic blood pressure 158 mm[Hg] Irving Ball DO Work Phone: [facility] 11-16-2024 11:27-0400 Systolic blood pressure 139 mm[Hg] [facility] 10-29-2024 10:38-0400 Body height 175.26 cm Irving Ball DO Work Phone: [facility] 10-29-2024 10:38-0400 Body mass index (BMI) [Ratio] 28.8 kg/m2 Irving Ball DO Work Phone: [facility] 10-29-2024 10:38-0400 Body weight 88.45 kg Irving Ball DO Work Phone: [facility] 09-19-2024 09:05-0400 Body height 175.26 cm Irving Ball DO Work Phone: [facility] 09-19-2024 09:05-0400 Body mass index (BMI) [Ratio] 28.8 kg/m2 Irving Ball DO Work Phone: [facility] 09-19-2024 09:05-0400 Body weight 88.56 kg Irving Ball DO Work Phone: [facility] 09-19-2024 09:05-0400 Diastolic blood pressure 75 mm[Hg] Irving Ball DO Work Phone: [facility] 09-19-2024 09:05-0400 Heart rate 53 /min Irving Ball DO Work Phone: [facility] 09-19-2024 09:05-0400 Respiratory rate 12 /min Irving Ball DO Work Phone: [facility] 09-19-2024 09:05-0400 Systolic blood pressure 131 mm[Hg] Irving Ball DO Work Phone: [facility] 08-29-2024 14:39-0500 Body height 175.3 cm Irving Murcek DO Work Phone: [facility] 08-29-2024 14:39-0500 Body mass index (BMI) [Ratio] 29.24 kg/m2 Irving Murcek DO Work Phone: [facility] 08-29-2024 14:39-0500 Body weight 89.81 kg Irving Murcek DO Work Phone: [facility] 08-01-2024 14:07-0500 Body height 175.3 cm Irving Murcek DO Work Phone: [facility] 08-01-2024 14:07-0500 Body mass index (BMI) [Ratio] 29.24 kg/m2 Irving Murcek DO Work Phone: [facility] 08-01-2024 14:07-0500 Body weight 89.81 kg Irving Murcek DO Work Phone: [facility] 07-24-2024 14:15-0500 Body mass index (BMI) [Ratio] 29.24 kg/m2 Brendon Baron DO Work Phone: [facility] 07-24-2024 14:15-0500 Body weight 89.81 kg Brendon Baron DO Work Phone: [facility] 07-24-2024 14:15-0500 Diastolic blood pressure 62 mm[Hg] Brendon Baron DO Work Phone: [facility] 07-24-2024 14:15-0500 Heart rate 54 /min Brendon Baron DO Work Phone: [facility] 07-24-2024 14:15-0500 Systolic blood pressure 110 mm[Hg] Brendon Baron DO Work Phone: [facility] 07-23-2024 13:06-0500 Body height 175.3 cm Irving Murcek DO Work Phone: [facility] 07-23-2024 13:06-0500 Body mass index (BMI) [Ratio] 29.24 kg/m2 Irving Murcek DO Work Phone: [facility] 07-23-2024 13:06-0500 Body weight 89.81 kg Irving Murcek DO Work Phone: [facility] 07-19-2024 14:07-0500 Diastolic blood pressure 88 mm[Hg] Pedro Wagner MD Work Phone: [facility] 07-19-2024 14:07-0500 Systolic blood pressure 136 mm[Hg] Pedro Wagner MD Work Phone: [facility] 07-19-2024 11:35-0500 Body height 175.[address] [facility] 07-19-2024 11:35-0500 Body mass index (BMI) [Ratio] 28.8 kg/m2 [facility] 07-19-2024 11:35-0500 Body weight 88.[address] [facility] 07-19-2024 11:35-0500 Diastolic blood pressure 86 mm[Hg] [facility] 07-19-2024 11:35-0500 Heart rate 62 /min [facility] 07-19-2024 11:35-0500 Respiratory rate 12 /min [facility] 07-19-2024 11:35-0500 Systolic blood pressure 126 mm[Hg] [facility] 07-10-2024 14:07-0500 Body height 175.[address] [facility] 07-10-2024 14:07-0500 Body mass index (BMI) [Ratio] 29.1 kg/m2 [facility] 07-10-2024 14:07-0500 Body weight 89.[address] [facility] 07-10-2024 14:07-0500 Diastolic blood pressure 77 mm[Hg] [facility] 07-10-2024 14:07-0500 Heart rate 59 /min [facility] 07-10-2024 14:07-0500 Respiratory rate 12 /min [facility] 07-10-2024 14:07-0500 Systolic blood pressure 153 mm[Hg] [facility] 05-17-2024 08:31-0500 Body height 175.[address] [facility] 05-17-2024 08:31-0500 Body mass index (BMI) [Ratio] 29.4 kg/m2 [facility] 05-17-2024 08:31-0500 Body weight 90.[address] [facility] 05-17-2024 08:31-0500 Diastolic blood pressure 81 mm[Hg] [facility] 05-17-2024 08:31-0500 Heart rate 50 /min [facility] 05-17-2024 08:31-0500 Respiratory rate 12 /min [facility] 05-17-2024 08:31-0500 Systolic blood pressure 153 mm[Hg] [facility] 03-19-2024 11:28-0400 Body height 175.[address] [facility] 03-19-2024 11:28-0400 Body mass index (BMI) [Ratio] 29 kg/m2 [facility] 03-19-2024 11:28-0400 Body weight 89.[address] [facility] 03-19-2024 11:28-0400 Diastolic blood pressure 78 mm[Hg] [facility] 03-19-2024 11:28-0400 Heart rate 55 /min [facility] 03-19-2024 11:28-0400 SaO2% (BldA) [Mass fraction] 96 % [facility] 03-19-2024 11:28-0400 Systolic blood pressure 136 mm[Hg] [facility] 02-02-2024 11:24-0400 Body height 175.26 cm MD Miriam Juarez Work Phone: [facility] 02-02-2024 11:24-0400 Body mass index (BMI) [Ratio] 28.8 kg/m2 MD Miriam Juarez Work Phone: [facility] 02-02-2024 11:24-0400 Body weight 88.45 kg MD Miriam Juarez Work Phone: [facility] 01-02-2024 13:25-0400 Diastolic blood pressure 82 mm[Hg] Radha 1 [facility] 01-02-2024 13:25-0400 Heart rate 49 /min [address] 01-02-2024 13:25-0400 Systolic blood pressure 122 mm[Hg] Radha [address] [place] [address] 12-28-2023 10:27-0400 Body height 175.3 cm Brendon Baron DO Work Phone: [facility] 12-28-2023 10:27-0400 Body mass index (BMI) [Ratio] 28.8 kg/m2 Brendon Baron DO Work Phone: [facility] 12-28-2023 10:27-0400 Body weight 88.45 kg Brendon Baron DO Work Phone: [facility] 12-28-2023 10:27-0400 Diastolic blood pressure 80 mm[Hg] Brendon Baron DO Work Phone: [facility] 12-28-2023 10:27-0400 Heart rate 48 /min Brendon Baron DO Work Phone: [facility] 12-28-2023 10:27-0400 Systolic blood pressure 136 mm[Hg] Brendon Baron DO Work Phone: [facility] 11-15-2023 11:30-0400 Body height 175.26 cm DO Irving Ball Work Phone: [facility] 11-15-2023 11:30-0400 Body mass index (BMI) [Ratio] 29.2 kg/m2 DO Irving Ball Work Phone: [facility] 11-15-2023 11:30-0400 Body weight 89.81 kg DO Irving Ball Work Phone: [facility] 11-15-2023 11:30-0400 Diastolic blood pressure 73 mm[Hg] DO Irving Ball Work Phone: [facility] 11-15-2023 11:30-0400 Heart rate 56 /min DO Irving Ball Work Phone: [facility] 11-15-2023 11:30-0400 Respiratory rate 12 /min DO Irving Ball Work Phone: [facility] 11-15-2023 11:30-0400 Systolic blood pressure 125 mm[Hg] DO Irving Ball Work Phone: [facility] 10-26-2023 10:24-0400 Diastolic blood pressure 75 mm[Hg] DO Irving Ball Work Phone: [facility] [facility] 10-26-2023 10:24-0400 Heart rate 43 /min DO Irving Ball Work Phone: [facility] 10-26-2023 10:24-0400 Respiratory rate 18 /min DO Irving Ball Work Phone: [facility] 10-26-2023 10:24-0400 SaO2% (BldA) [Mass fraction] 96 % DO Irving Ball Work Phone: [facility] 10-26-2023 10:24-0400 Systolic blood pressure 131 mm[Hg] DO Irving Ball Work Phone: [facility] 10-26-2023 08:35-0400 Body height 175.26 cm DO Irving Ball Work Phone: [facility] 10-26-2023 08:35-0400 Body weight 89.35 kg DO Irving Ball Work Phone: [facility] 10-17-2023 14:27-0400 Body height 175.26 cm DO Irving Ball Work Phone: [facility] 10-17-2023 14:27-0400 Body mass index (BMI) [Ratio] 23.1 kg/m2 DO Irving Ball Work Phone: [facility] 10-17-2023 14:27-0400 Body weight 71 kg DO Irving Ball Work Phone: [facility] 09-23-2023 11:12-0400 Body height 175.26 cm DO Irving Ball Work Phone: [facility] 09-23-2023 11:12-0400 Body mass index (BMI) [Ratio] 29.5 kg/m2 DO Irving Ball Work Phone: [facility] 09-23-2023 11:12-0400 Body weight 90.71 kg DO Irving Ball Work Phone: [facility] 09-23-2023 11:12-0400 Diastolic blood pressure 75 mm[Hg] DO Irving Ball Work Phone: [facility] 09-23-2023 11:12-0400 Heart rate 53 /min DO Irving Ball Work Phone: [facility] 09-23-2023 11:12-0400 Respiratory rate 12 /min DO Irving Ball Work Phone: [facility] 09-23-2023 11:12-0400 Systolic blood pressure 165 mm[Hg] DO Irving Ball Work Phone: [facility] 09-14-2023 09:27-0400 Body height 175.26 cm DO Irving Ball Work Phone: [facility] 09-14-2023 09:27-0400 Body mass index (BMI) [Ratio] 30 kg/m2 DO Irving Ball Work Phone: [facility] 09-14-2023 09:27-0400 Body weight 92.24 kg DO Irving Ball Work Phone: [facility] 09-14-2023 09:27-0400 Diastolic blood pressure 75 mm[Hg] DO Irving Ball Work Phone: [facility] 09-14-2023 09:27-0400 Heart rate 67 /min DO Irving Ball Work Phone: [facility] 09-14-2023 09:27-0400 Respiratory rate 16 /min DO Irving Ball Work Phone: [facility] 09-14-2023 09:27-0400 Systolic blood pressure 134 mm[Hg] DO Irving Ball Work Phone: [facility] 08-04-2023 11:00-0500 Body height 175.26 cm Irving Ball Other [facility] [employer] Other 08-04-2023 11:00-0500 Body mass index (BMI) [Ratio] 29.89 kg/m2 Irving Ball Other [facility] [employer] Other 08-04-2023 11:00-0500 Body weight 91.81 kg Irving Ball Other [employer] Other 08-04-2023 11:00-0500 Diastolic blood pressure 53 mm[Hg] Irving Ball Other [employer] Other 08-04-2023 11:00-0500 Respiratory rate 12 /min Irving Ball Other [employer] Other 08-04-2023 11:00-0500 Systolic blood pressure 132 mm[Hg] Irving Ball Other [employer] Other 07-25-2023 13:04-0500 Body height 175.3 cm Brendon Baron DO Work Phone: [facility] 07-25-2023 13:04-0500 Body mass index (BMI) [Ratio] 29.98 kg/m2 Brendon Baron DO Work Phone: [facility] 07-25-2023 13:04-0500 Body weight 92.08 kg Brendon Baron DO Work Phone: [facility] 07-25-2023 13:04-0500 Diastolic blood pressure 70 mm[Hg] Brendon Baron DO Work Phone: [facility] 07-25-2023 13:04-0500 Heart rate 44 /min Brendon Baron DO Work Phone: [facility] 07-25-2023 13:04-0500 Systolic blood pressure 102 mm[Hg] Brendon Baron DO Work Phone: [facility] 05-13-2023 11:15-0500 Body height 175.26 cm Irving Ball Other [employer] Other 05-13-2023 11:15-0500 Body mass index (BMI) [Ratio] 29.15 kg/m2 Irving Ball Other [employer] Other 05-13-2023 11:15-0500 Body weight 89.54 kg Irving Ball Other [employer] Other 05-13-2023 11:15-0500 Diastolic blood pressure 62 mm[Hg] Irving Ball Other [employer] Other 05-13-2023 11:15-0500 Respiratory rate 12 /min Irving Ball Other [employer] Other 05-13-2023 11:15-0500 Systolic blood pressure 114 mm[Hg] Irving Ball Other [employer] Other 05-04-2023 11:30-0500 Body height 175.26 cm Irving Ball Other [employer] Other 05-04-2023 11:30-0500 Body mass index (BMI) [Ratio] 29.12 kg/m2 Irving Ball Other [employer] Other 05-04-2023 11:30-0500 Body weight 89.45 kg Irving Ball Other [employer] Other 05-04-2023 11:30-0500 Diastolic blood pressure 65 mm[Hg] Irving Ball Other [employer] Other 05-04-2023 11:30-0500 Respiratory rate 12 /min Irving Ball Other [employer] Other 05-04-2023 11:30-0500 Systolic blood pressure 124 mm[Hg] Irving Ball Other [employer] Other 04-21-2023 11:11-0400 Diastolic blood pressure 70 mm[Hg] DO Irving Ball Work Phone: [facility] 04-21-2023 11:11-0400 Heart rate 51 /min DO Irving Ball Work Phone: [facility] 04-21-2023 11:11-0400 Respiratory rate 16 /min DO Irving Ball Work Phone: [facility] 04-21-2023 11:11-0400 SaO2% (BldA) [Mass fraction] 95 % DO Irving Ball Work Phone: [facility] 04-21-2023 11:11-0400 Systolic blood pressure 133 mm[Hg] DO Irving Ball Work Phone: [facility] 04-21-2023 08:03-0400 Body height 175.26 cm DO Irving Ball Work Phone: [facility] 04-21-2023 08:03-0400 Body temperature 98.2 [degF] DO Irving Ball Work Phone: [facility] 04-21-2023 08:03-0400 Body weight 86.18 kg DO Irving Ball Work Phone: [facility] 03-01-2023 15:30-0400 Body height 175.26 cm Markell Hines Other [employer] Other 03-01-2023 15:30-0400 Body mass index (BMI) [Ratio] 28.94 kg/m2 Markell Hines Other [employer] Other 03-01-2023 15:30-0400 Body weight 88.91 kg Markell Hines Other [employer] Other 03-01-2023 15:30-0400 Diastolic blood pressure 78 mm[Hg] Markell Hines Other [employer] Other 03-01-2023 15:30-0400 Systolic blood pressure 130 mm[Hg] Markell Hines Other [employer] Other 02-01-2023 11:30-0400 Body height 175.26 cm Irving Ball Other [employer] Other 02-01-2023 11:30-0400 Body mass index (BMI) [Ratio] 28.91 kg/m2 Irving Ball Other [employer] Other 02-01-2023 11:30-0400 Body weight 88.81 kg Irving Ball Other [employer] Other 02-01-2023 11:30-0400 Diastolic blood pressure 71 mm[Hg] Irving Ball Other [employer] Other 02-01-2023 11:30-0400 Respiratory rate 12 /min Irving Ball Other [employer] Other 02-01-2023 11:30-0400 Systolic blood pressure 126 mm[Hg] Irving Ball Other [employer] Other 01-03-2023 11:01-0400 Heart rate 46 /min Irving E Ball Work Phone: [facility] [employer] DO Work Phone: 01-03-2023 10:58-0400 Body height 175.26 cm Irving E Ball Work Phone: [facility] [employer] DO Work Phone: 01-03-2023 10:58-0400 Body mass index (BMI) [Ratio] 29.24 kg/m2 Irving E Ball Work Phone: [facility] [employer] DO Work Phone: 01-03-2023 10:58-0400 Body surface area Derived from formula 2.06 m2 Irving E Ball Work Phone: [facility] DO Work Phone: 01-03-2023 10:58-0400 Body weight 89.81 kg Irving E Ball Work Phone: [facility] DO Work Phone: 01-03-2023 10:58-0400 Diastolic blood pressure 80 mm[Hg] Irving E Ball Work Phone: [facility] DO Work Phone: 01-03-2023 10:58-0400 Systolic blood pressure 150 mm[Hg] Irving E Ball Work Phone: [facility] DO Work Phone: 12-08-2022 11:55-0400 Diastolic blood pressure 66 mm[Hg] Irving E Ball Work Phone: [facility] DO Work Phone: 12-08-2022 11:55-0400 Heart rate 52 /min Irving E Ball Work Phone: [facility] DO Work Phone: 12-08-2022 11:55-0400 Systolic blood pressure 124 mm[Hg] Irving E Ball Work Phone: [facility] DO Work Phone: 12-08-2022 11:54-0400 Body height 175.26 cm Irving E Ball Work Phone: [facility] DO Work Phone: 12-08-2022 11:54-0400 Body mass index (BMI) [Ratio] 29.24 kg/m2 Irving E Ball Work Phone: [facility] DO Work Phone: 12-08-2022 11:54-0400 Body surface area Derived from formula 2.06 m2 Irving E Ball Work Phone: [facility] DO Work Phone: 12-08-2022 11:54-0400 Body weight 89.81 kg Irving E Ball Work Phone: [facility] DO Work Phone: 12-08-2022 11:54-0400 Diastolic blood pressure 70 mm[Hg] Irving E Ball Work Phone: [facility] DO Work Phone: 12-08-2022 11:54-0400 Systolic blood pressure 130 mm[Hg] Irving E Ball Work Phone: [facility] DO Work Phone: 11-29-2022 09:30-0400 Body height 175.26 cm Irving E [facility] Work Phone: 11-29-2022 09:30-0400 Body mass index (BMI) [Ratio] 29.09 kg/m2 Irving E Ball [facility] Work Phone: 11-29-2022 09:30-0400 Body surface area Derived from formula 2.05 m2 Irving E Ball [facility] Work Phone: 11-29-2022 09:30-0400 Body weight 89.36 kg Irving E Ball [facility] Work Phone: 11-29-2022 09:30-0400 Diastolic blood pressure 82 mm[Hg] Irving E Ball [facility] Phone[facility] Work Phone: 11-29-2022 09:30-0400 Heart rate 44 /min Irving E Ball Work Phone: [facility] [employer] 250 DO Work Phone: 11-29-2022 09:30-0400 Systolic blood pressure 142 mm[Hg] Irving E Ball Work Phone: [facility] [employer] DO Work Phone: 11-02-2022 12:30-0400 Body height 175.26 cm Irving Ball Other [facility] [employer] Other 11-02-2022 12:30-0400 Body mass index (BMI) [Ratio] 28.88 kg/m2 Irving Ball Other [facility] [employer] Other 11-02-2022 12:30-0400 Body weight 88.72 kg Irving Ball Other [facility] [employer] Other 11-02-2022 12:30-0400 Diastolic blood pressure 70 mm[Hg] Irving Ball Other [facility] [employer] Other 11-02-2022 12:30-0400 Respiratory rate 12 /min Irving Ball Other [facility] [employer] Other 11-02-2022 12:30-0400 Systolic blood pressure 148 mm[Hg] Irving Ball Other [facility] [employer] Other 10-28-2022 21:03-0400 Diastolic blood pressure 66 mm[Hg] DO Irving Ball Work Phone: [facility] 10-28-2022 21:03-0400 Heart rate 57 /min DO Irving Ball Work Phone: [facility] 10-28-2022 21:03-0400 Respiratory rate 16 /min DO Irving Ball Work Phone: [facility] 10-28-2022 21:03-0400 SaO2% (BldA) [Mass fraction] 96 % DO Irving Ball Work Phone: [facility] 10-28-2022 21:03-0400 Systolic blood pressure 135 mm[Hg] DO Irving Ball Work Phone: [facility] 10-28-2022 20:17-0400 Body height 175.26 cm DO Irving Ball Work Phone: [facility] 10-28-2022 20:17-0400 Body temperature 98.3 [degF] DO Irving Ball Work Phone: [facility] 10-28-2022 20:17-040 Body weight 90.7 kg DO Irving Ball Work Phone: [facility] 10-26-2022 14:30-0400 Body height 175.26 cm Irving Ball Other [facility] [employer] Other 10-26-2022 14:30-0400 Body mass index (BMI) [Ratio] 29.32 kg/m2 Irving Ball Other [facility] [employer] Other 10-26-2022 14:30-0400 Body weight 90.08 kg Irving Ball Other [employer] Other 10-26-2022 14:30-0400 Diastolic blood pressure 80 mm[Hg] Irving Ball Other [employer] Other 10-26-2022 14:30-0400 Systolic blood pressure 147 mm[Hg] Irving Ball Other [employer] Other 10-01-2022 09:45-0400 Body height 175.26 cm Irving Ball Other [employer] Other 10-01-2022 09:45-0400 Body mass index (BMI) [Ratio] 29.41 kg/m2 Irving Ball Other [employer] Other 10-01-2022 09:45-0400 Body weight 90.36 kg Irving Ball Other [employer] Other 10-01-2022 09:45-0400 Diastolic blood pressure 74 mm[Hg] Irving Ball Other [employer] Other 10-01-2022 09:45-0400 Respiratory rate 12 /min Irving Ball Other [employer] Other 10-01-2022 09:45-0400 Systolic blood pressure 157 mm[Hg] Irving Ball Other [employer] Other 09-02-2022 11:30-0500 Body height 175.26 cm Irving Ball Other [employer] Other 09-02-2022 11:30-0500 Body mass index (BMI) [Ratio] 29.5 kg/m2 Irving Ball Other [employer] Other 09-02-2022 11:30-0500 Body weight 90.63 kg Irving Ball Other [employer] Other 09-02-2022 11:30-0500 Diastolic blood pressure 70 mm[Hg] Irving Ball Other [employer] Other 09-02-2022 11:30-0500 Respiratory rate 12 /min Irving Ball Other [employer] Other 09-02-2022 11:30-0500 Systolic blood pressure 112 mm[Hg] Irving Ball Other [employer] Other 08-18-2022 09:45-0500 Body height 175.26 cm Irving Ball Other [employer] Other 08-18-2022 09:45-0500 Body mass index (BMI) [Ratio] 29.59 kg/m2 Irving Ball Other [employer] Other 08-18-2022 09:45-0500 Body weight 90.9 kg Irving Ball Other [employer] Other 08-18-2022 09:45-0500 Diastolic blood pressure 86 mm[Hg] Irving Ball Other [employer] Other 08-18-2022 09:45-0500 Respiratory rate 12 /min Irving Ball Other [employer] Other 08-18-2022 09:45-0500 Systolic blood pressure 142 mm[Hg] Irving Ball Other [employer] Other 07-15-2022 10:06-0500 Body height 175.26 cm Irving E Ball Work Phone: [facility] [employer] [facility] DO Work Phone: 07-15-2022 10:06-0500 Body mass index (BMI) [Ratio] 28.94 kg/m2 Irving E Ball Work Phone: [facility] [employer] DO Work Phone: 07-15-2022 10:06-0500 Body surface area Derived from formula 2.05 m2 Irving E Ball Work Phone: [employer] [employer] [facility] DO Work Phone: 07-15-2022 10:06-0500 Body weight 88.91 kg Irving E Ball Work Phone: [facility] [employer] [facility] DO Work Phone: 07-15-2022 10:06-0500 Diastolic blood pressure 78 mm[Hg] Irving E Ball Work Phone: [facility] [facility] DO Work Phone: 07-15-2022 10:06-0500 Heart rate 50 /min Irving E Ball Work Phone: [facility] [facility] DO Work Phone: 07-15-2022 10:06-0500 Systolic blood pressure 118 mm[Hg] Irving E Ball Work Phone: [facility] [facility] DO Work Phone: 01-05-2022 13:30-0400 Body height 175.26 cm Irving E Ball Work Phone: [facility] DO Work Phone: 01-05-2022 13:30-0400 Body mass index (BMI) [Ratio] 29.09 kg/m2 Irving E Ball Work Phone: [facility] [facility] DO Work Phone: 01-05-2022 13:30-0400 Body surface area Derived from formula 2.05 m2 Irving E Ball Work Phone: [facility] DO Work Phone: 01-05-2022 13:30-0400 Body weight 89.36 kg Irving E Ball Work Phone: [facility] DO Work Phone: 01-05-2022 13:30-0400 Diastolic blood pressure 62 mm[Hg] Irving E Ball Work Phone: [facility] [facility] DO Work Phone: 01-05-2022 13:30-0400 Heart rate 50 /min Irving E Ball Work Phone: [facility] [facility] DO Work Phone: 01-05-2022 13:30-0400 Systolic blood pressure 120 mm[Hg] Irving E Ball Work Phone: [facility] [facility] DO Work Phone: 12-14-2021 12:42-0400 Body height 175.26 cm Irving E Ball Work Phone: [facility] DO Work Phone: 12-14-2021 12:42-0400 Body mass index (BMI) [Ratio] 28.65 kg/m2 Irving E Ball Work Phone: [facility] DO Work Phone: 12-14-2021 12:42-0400 Body surface area Derived from formula 2.04 m2 Irving E Ball Work Phone: [facility] DO Work Phone: 12-14-2021 12:42-0400 Body weight 88 kg Irving E Ball Work Phone: [facility] DO Work Phone: 12-14-2021 12:42-0400 Diastolic blood pressure 80 mm[Hg] Irving E Ball Work Phone: [facility] DO Work Phone: 12-14-2021 12:42-0400 Heart rate 50 /min Irving E Ball Work Phone: [facility] DO Work Phone: 12-14-2021 12:42-0400 Systolic blood pressure 134 mm[Hg] Irving E Ball Work Phone: [facility] DO Work Phone: 12-14-2021 08:42-0400 Body height 175.26 cm Irving E Ball Work Phone: [facility] DO Work Phone: 12-14-2021 08:42-0400 Body mass index (BMI) [Ratio] 28.65 kg/m2 Irving E Ball Work Phone: [facility] [facility] DO Work Phone: 12-14-2021 08:42-0400 Body surface area Derived from formula 2.04 m2 Irving E Ball Work Phone: [facility] [facility] DO Work Phone: 12-14-2021 08:42-0400 Body weight 88 kg Irving E Ball Work Phone: [facility] [facility] DO Work Phone: 12-14-2021 08:42-0400 Diastolic blood pressure 80 mm[Hg] Irving E Ball Work Phone: [facility] DO Work Phone: 12-14-2021 08:42-0400 Heart rate 49 /min Irving E Ball Work Phone: [facility] [employer] 250 DO Work Phone: 12-14-2021 08:42-0400 Systolic blood pressure 154 mm[Hg] Irving E Ball Work Phone: [facility] [employer] [facility] DO Work Phone: 10-16-2021 14:16-0400 Body height 175.26 cm Irving E Ball Work Phone: [facility] [employer] 250 DO Work Phone: 10-16-2021 14:16-0400 Body mass index (BMI) [Ratio] 29.54 kg/m2 Irving E Ball Work Phone: [facility] [employer] 250 DO Work Phone: 10-16-2021 14:16-0400 Body surface area Derived from formula 2.07 m2 Irving E Ball Work Phone: [facility] [employer] 250 DO Work Phone: 10-16-2021 14:16-0400 Body weight 90.72 kg Irving E Ball Work Phone: [facility] [employer] 250 DO Work Phone: 10-16-2021 14:16-0400 Diastolic blood pressure 70 mm[Hg] Irving E Ball Work Phone: [facility] DO Work Phone: 10-16-2021 14:16-0400 Heart rate 59 /min Irving E Ball Work Phone: [facility] DO Work Phone: 10-16-2021 14:16-0400 Systolic blood pressure 134 mm[Hg] Irving E Ball Work Phone: [facility] DO Work Phone: 10-07-2021 09:36-0400 Body height 175.26 cm Irving Floyd Ball Work [facility] Work Phone: 10-07-2021 09:36-0400 Body mass index (BMI) [Ratio] 28.86 kg/m2 Irving Floyd Ball Work Phone: [facility] DO Work Phone: 10-07-2021 09:36-0400 Body surface area Derived from formula 2.05 m2 Irving Floyd Ball Work Phone: [facility] Work Phone: 10-07-2021 09:36-0400 Body weight 88.63 kg Irving E Ball Work Phone: [facility] DO Work Phone: 10-07-2021 09:36-0400 Diastolic blood pressure 70 mm[Hg] Irving E Ball Work Phone: [facility] DO Work Phone: 10-07-2021 09:36-0400 Heart rate 68 /min Irving E Ball Work Phone: [facility] [facility] DO Work Phone: 10-07-2021 09:36-0400 Systolic blood pressure 136 mm[Hg] Irving Floyd Ball Work Phone: [facility] 250 DO Work Phone: 09-02-2021 09:57-0500 Body height 175.26 cm Irving Floyd Ball Work Phone: [facility] 250 DO Work Phone: 09-02-2021 09:57-0500 Body mass index (BMI) [Ratio] 29.39 kg/m2 Irving Floyd Ball Work Phone: [facility] [employer] 250 DO Work Phone: 09-02-2021 09:57-0500 Body surface area Derived from formula 2.06 m2 Irving Floyd Ball Work Phone: [facility] [employer] 250 DO Work Phone: 09-02-2021 09:57-0500 Body weight 90.27 kg Irving Floyd Ball Work Phone: [facility] [employer] 250 DO Work Phone: 09-02-2021 09:57-0500 Diastolic blood pressure 98 mm[Hg] Irving Floyd Ball Work Phone: [facility] [employer] 250 DO Work Phone: 09-02-2021 09:57-0500 Diastolic blood pressure 102 mm[Hg] Irving Floyd Ball Work Phone: [facility] [facility] DO Work Phone: 09-02-2021 09:57-0500 Systolic blood pressure 180 mm[Hg] Irving Floyd Ball Work Phone: [facility] DO Work Phone: 09-02-2021 09:57-0500 Systolic blood pressure 172 mm[Hg] Irving Floyd Ball Work Phone: [facility] [facility] DO Work Phone: 09-02-2021 09:57-0500 Systolic blood pressure 152 mm[Hg] Irving Floyd Ball Work Phone: [facility] [facility] DO Work Phone: 09-02-2021 09:57-0500 66 1 Irving Floyd Ball Work Phone: [facility] DO Work Phone: Comment on above: [employer] 09-02-2021 09:57-0500 58 1 Irving Floyd Ball Work Phone: [facility] [facility] DO Work Phone: Comment on above: [employer] 07-01-2021 11:57-0500 Body height 175.26 cm Irving Floyd Ball Work Phone: [facility] 250 DO Work Phone: 07-01-2021 11:57-0500 Body mass index (BMI) [Ratio] 28.8 kg/m2 Irving Floyd Ball Work Phone: [facility] 250 DO Work Phone: 07-01-2021 11:57-0500 Body surface area Derived from formula 2.04 m2 Irving Floyd Ball Work Phone: [facility] DO Work Phone: 07-01-2021 11:57-0500 Body weight 88.45 kg Irving Floyd Ball Work Phone: [facility] DO Work Phone: 07-01-2021 11:57-0500 Diastolic blood pressure 76 mm[Hg] Irving Floyd Ball Work Phone: [facility] [facility] DO Work Phone: 07-01-2021 11:57-0500 Heart rate 42 /min Irving Canela Work Phone: [facility] 250 DO Work Phone: 07-01-2021 11:57-0500 Systolic blood pressure 145 mm[Hg] Irving Canela Work Phone: [facility] [facility] DO Work Phone: Encounters Encounter Date Encounter Type Care Provider Facility Start: 11-30-2024 End: 11-30-2024 ambulatory [facility] Work Phone: Start: 11-30-2024 End: 11-30-2024 Patient encounter procedure [facility] Work Phone: Start: 11-29-2024 End: 11-29-2024 Lisandra Girard MD Work Phone: [facility] Start: 11-29-2024 End: 11-29-2024 Lisandra Girard MD Work Phone: [facility] Start: 11-29-2024 End: 11-29-2024 Office outpatient visit 15 minutes Bashir Girard MD Work Phone: [facility] Comment on above: Seborrheic keratosis (Primary Dx); Lentigines; History of malignant melanoma of skin; History of basal cell carcinoma; History of SCC (squamous cell carcinoma) of skin; Actinic keratosis; Inflammatory papule Start: 11-29-2024 End: 11-29-2024 ambulatory BASHIR GIRARD Not Available Start: 11-16-2024 End: 11-16-2024 ambulatory Irving Canela DO Work Phone: [facility] Work Phone: Start: 11-16-2024 End: 11-16-2024 Patient encounter procedure Irving Ball DO Work Phone: [facility] Work Phone: Start: 10-29-2024 End: 10-29-2024 ambulatory Irving Ball DO Work Phone: [facility] Work Phone: Start: 10-29-2024 End: 10-29-2024 Patient encounter procedure Irving Ball DO Work Phone: [facility] Work Phone: Start: 10-01-2024 Non-patient / Non-visit Benjam in Ball DO Work Phone: [facility] Work Phone: Start: 09-25-2024 Non-patient / Non-visit Benjam in Ball DO Work Phone: [facility] Work Phone: Start: 09-19-2024 End: 09-19-2024 ambulatory Irving Canela DO Work Phone: [facility] Work Phone: Start: 09-19-2024 End: 09-19-2024 Patient encounter procedure Irving Canela DO Work Phone: [facility] Work Phone: Start: 08-29-2024 End: 08-29-2024 Postop follow up visit related to original px Irving Fonseca DO Work Phone: [facility] Comment on above: Mohs defect of neck (Primary Dx) Start: 08-29-2024 End: 08-29-2024 ambulatory IRVING FONSECA Not Available Start: 08-29-2024 End: 08-29-2024 Bamboo flowsheet Irving Fnoseca DO Work Phone: [facility] Start: 08-29-2024 End: 08-29-2024 Bamboo flowsheet Irving Fonseca DO Work Phone: [facility] Start: 08-28-2024 Non-patient / Non-visit Benjam in Ball DO Work Phone: [facility] Work Phone: Start: 08-28-2024 End: 08-28-2024 Patient encounter procedure Irving Canela DO Work Phone: [facility] Work Phone: Start: 08-28-2024 End: 08-28-2024 ambulatory Alfred Baron Facility:[facility] Start: 08-27-2024 End: 08-27-2024 Bamboo flowsheet [...] Phone: [facility] Start: 08-01-2024 End: 08-01-2024 Bamboo flowsheet Irving Fonseca DO Work Phone: [facility] Start: 08-01-2024 End: 08-01-2024 ambulatory IRVING FONSECA Not Available Start: 07-30-2024 Non-patient / Non-visit Benjam in Ball DO Work Phone: [facility] Work Phone: Start: 07-27-2024 Non-patient / Non-visit Benjam in Ball DO Work Phone: [facility] Work Phone: Start: 07-27-2024 Non-patient / Non-visit Benjam in Ball DO Work Phone: [facility] Work Phone: Start: 07-26-2024 Non-patient / Non-visit Benjam in Rola DO Work Phone: [facility] Work Phone: Start: 07-25-2024 End: 07-25-2024 ambulatory IRVING FONSECA Not Available Start: 07-24-2024 End: 07-24-2024 Office outpatient visit 25 minutes Brendon Carissa [place] DO Work Phone: [facility] Comment on above: 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; Bradycardia; H/O non-ST elevation myocardial infarction (NSTEMI); S/P PTCA (percutaneous transluminal coronary angioplasty); High risk medication use; Paroxysmal atrial fibrillation (Multi); Mixed hyperlipidemia; Former smoker; BMI 29.0-29.9,adult Start: 07-24-2024 End: 07-24-2024 ambulatory [facility] Ambulatory Start: 07-23-2024 End: 07-23-2024 Bamboo flowsheet Irving Fonseca DO Work Phone: [facility] Start: 07-23-2024 End: 07-23-2024 Bamboo flowsheet Irving Fonseca DO Work Phone: [facility] Start: 07-23-2024 End: 07-23-2024 Office outpatient new 45 minutes Irving Fonseca DO Work Phone: [facility] Comment on above: Mohs defect of neck Start: 07-23-2024 End: 07-23-2024 ambulatory IRVING Simon KEL Not Available Start: 07-19-2024 End: 07-19-2024 ambulatory PEDRO WAGNER Not Available Start: 07-19-2024 End: 07-19-2024 Patient encounter procedure Pedro Wagner MD Work Phone: [facility] Comment on above: Basal cell carcinoma of skin of scalp and neck (Primary Dx) Start: 07-19-2024 End: 07-19-2024 ambulatory [facility] Work Phone: Start: 07-19-2024 End: 07-19-2024 Patient encounter procedure [facility] Work Phone: Start: 07-10-2024 End: 07-10-2024 ambulatory [facility] Work Phone: Start: 07-10-2024 End: 07-10-2024 Patient encounter procedure [facility] Work Phone: Start: 05-21-2024 End: 05-21-2024 Bamboo flowsheet Bashir Girard MD Work Phone: [facility] Start: 05-21-2024 End: 05-21-2024 Bamboo flowsheet Bashir Girard MD Work Phone: [facility] Start: 05-21-2024 End: 05-21-2024 Office outpatient visit 15 minutes Bashir Girard MD Work Phone: [facility] Comment on above: Seborrheic keratosis (Primary Dx); Lentigines; History of SCC (squamous cell carcinoma) of skin; History of malignant melanoma of skin; Actinic keratosis; Neoplasm of unspecified behavior of bone, soft tissue, and skin Start: 05-21-2024 End: 05-21-2024 ambulatory BASHIR GIRARD Not Available Start: 05-17-2024 End: 05-17-2024 ambulatory [facility] Work Phone: Start: 05-17-2024 End: 05-17-2024 Patient encounter procedure [facility] Work Phone: Start: 04-11-2024 Non-patient / Non-visit [facility] Work Phone: Start: 03-29-2024 End: 03-29-2024 Nursing evaluation of patient and report Breath Test Sree [facility] Work Phone: [facility] Comment on above: Diarrhea, unspecifie d type (Primary Dx) Start: 03-19-2024 End: 03-19-2024 ambulatory [facility] Work Phone: Start: 03-19-2024 End: 03-19-2024 Patient encounter procedure [facility] Work Phone: Start: 02-14-2024 End: 02-14-2024 Bamboo flowsliliana Girard MD Work Phone: [facility] [...] Start: 02-13-2024 End: 02-13-2024 ambulatory Bethel CHAIREZ Facility:[facility] Start: 02-13-2024 End: 02-13-2024 Patient encounter procedure Bethel CHAIREZ [facility] Start: 02-02-2024 End: 02-02-2024 ambulatory MD Miriam Juarez Work Phone: [facility] Work Phone: Start: 02-02-2024 End: 02-02-2024 Patient encounter procedure MD Miriam Juarez Work Phone: 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; Bradycardia; S/P PTCA (percutaneous transluminal coronary angioplasty); H/O non-ST elevation myocardial infarction (NSTEMI); Paroxysmal atrial fibrillation (Multi); High risk medication use; Hypertension, benign; Mixed hyperlipidemia; BMI 28.0-28.9,adult; Former smoker; Chest pain, unspecified type Start: 12-28-2023 End: 12-28-2023 ambulatory [facility] Ambulatory Start: 12-16-2023 Non-patient / Non-visit MD Deanna Juarez Work Phone: [facility] Work Phone: Start: 11-22-2023 Non-patient / Non-visit DO Levar Canela Work Phone: [facility] Work Phone: Start: 11-22-2023 End: 11-22-2023 ambulatory DO Irving Canela Work Phone: [facility] Work Phone: Start: 11-22-2023 End: 11-22-2023 Departed Referred DO Irving Ball Work Phone: [facility] Start: 11-15-2023 End: 11-15-2023 ambulatory DO Irving Ball Work Phone: [facility] Work Phone: Start: 11-15-2023 End: 11-15-2023 Patient encounter procedure DO Irving Ball Work Phone: [facility] Work Phone: Start: 10-29-2023 Non-patient / Non-visit DO Levar tania Ball Work Phone: [facility] Work Phone: Start: 10-26-2023 Non-patient / Non-visit DO Levar tania Ball Work Phone: [facility] Gastroenterology Work Phone: Start: 10-26-2023 End: 10-26-2023 Admission to same day surgery center DO Irving Ball Work Phone: [facility] Work Phone: Start: 10-26-2023 End: 10-26-2023 ambulatory Irving Ball Facility:[facility] Start: 10-20-2023 Non-patient / Non-visit DO Levar marin Ball Work Phone: [facility] Work Phone: Start: 10-17-2023 End: 10-17-2023 ambulatory DO Irving Ball Work Phone: [facility] Work Phone: Start: 10-17-2023 End: 10-17-2023 Patient encounter procedure DO Irving Ball Work Phone: [facility] Gastroenterology Work Phone: Start: 2023 Non-patient / Non-visit DO Levar tania Ball Work Phone: [facility] Work Phone: Start: 09-23-2023 End: 09-23-2023 ambulatory DO Irving Canela Work Phone: [facility] Work Phone: Start: 09-23-2023 End: 09-23-2023 Patient encounter procedure DO Irving Canela Work Phone: [facility] Work Phone: Start: 09-14-2023 End: 09-14-2023 ambulatory DO Irving Canela Work Phone: [facility] Work Phone: Start: 09-14-2023 End: 09-14-2023 Patient encounter procedure DO Irving Canela Work Phone: [facility] Work Phone: Start: 09-01-2023 Non-patient / Non-visit DO Levar Canela Work Phone: [facility] Pulmonary Disease Work Phone: Start: 08-29-2023 End: 08-29-2023 Patient encounter procedure DO Irving Canela Work Phone: [facility] Work Phone: Start: 08-26-2023 Non-patient / Non-visit DO Levar Canela Work Phone: [facility] Work Phone: Start: 08-04-2023 End: 08-04-2023 ambulatory Irving Canela Other [facility] [employer] Other Start: 08-04-2023 Office outpatient vi sit 25 minutes Irving Canela [facility] Start: 07-25-2023 End: 07-25-2023 Office outpatient visit 25 minutes Brendon Baron DO Work Phone: [facility] Comment on above: Bradycardia; H/O non-ST elevation myocardial infarction (NSTEMI); Paroxysmal atrial fibrillation (CMS/HCC); S/P PTCA (percutaneous transluminal coronary angioplasty) Start: 05-13-2023 End: 05-13-2023 ambulatory Irving Canela Other [employer] Other Start: 05-13-2023 Office outpatient vi sit 15 minutes Irving Canela [facility] Start: 05-04-2023 End: 05-04-2023 ambulatory Irving Canela Other [employer] Other Start: 05-04-2023 Office outpatient vi sit 25 minutes Irving Canela [facility] Start: 04-21-2023 Telephone encounter Markell Montes ck [facility] Start: 04-21-2023 End: 04-21-2023 Admission to same day surgery center DO Irving Canela Work Phone: [facility] Work Phone: Start: 04-21-2023 End: 04-21-2023 ambulatory DO Irving Canela Work Phone: [facility] Work Phone: Start: 03-25-2023 End: 03-25-2023 ambulatory Irving Canela Other [employer] Other Start: 03-25-2023 Telephone encounter Irving Canela [facility] Start: 03-23-2023 FUV, Provider: Florence Norman, Status: Pen, Time: 12:30 PM Irving Canela Work Phone: [facility] 250 DO Work Phone: Start: 03-23-2023 ambulatory Ms. Henriquez Lupe Aden Facility: Start: 03-22-2023 Chart Update Irving shelby Work Phone: [facility] 250 DO Work Phone: Start: 03-21-2023 Chart Update Irving shelby Work Phone: [facility] 250 DO Work Phone: Start: 03-21-2023 End: 03-21-2023 ambulatory DO Irving Canela Work Phone: [facility] Work Phone: Start: 03-21-2023 End: 03-21-2023 Patient encounter procedure DO Irving Canela Work Phone: [facility]Res[facility] Therapy Work Phone: Start: 03-07-2023 ambulatory Ms. Florence Aden Facility: Start: 03-01-2023 End: 03-01-2023 ambulatory Markell Louisormack Other [employer] Other Start: 03-01-2023 Office outpatient ne w 45 minutes Markell Hines [facility] Gastroenterology Start: 02-01-2023 End: 02-01-2023 ambulatory Irving Canela Other [facility] [employer] Other Start: 02-01-2023 Office outpatient vi sit 25 minutes Irving Canela [facility] Start: 01-13-2023 Rx Renewal Irving Mariel Bal l Work Phone: [facility] 250 DO Work Phone: Start: 01-03-2023 Office outpatient vi sit 15 minutes Irving Mariel Ball Work Phone: [facility] 250 DO Work Phone: Start: 01-03-2023 Patient encounter procedure Irving Canela Work Phone: [facility] 250 DO Work Phone: Start: 01-03-2023 ambulatory Ms. Florence Aden Facility: Start: 12-31-2022 Rx Renewal Irving Mariel Bal l Work Phone: [facility] Work Phone: Start: 12-28-2022 ambulatory Rose Green Facility : Start: 12-08-2022 Office outpatient vi sit 5 minutes Irving Canela Work Phone: [facility] 250 DO Work Phone: Start: 12-08-2022 Patient encounter procedure Irving Canela Work Phone: [facility] 250 DO Work Phone: Start: 12-08-2022 ambulatory Ms. Florence Aden Facility: Start: 11-29-2022 Office outpatient vi sit 25 minutes Irving Canela Work Phone: [facility] 250 DO Work Phone: Start: 11-29-2022 ambulatory Ms. Florence Aden Facility: Start: 11-02-2022 End: 11-02-2022 ambulatory Irving Canela Other [employer] Other Start: 11-02-2022 Transitional care echo fairbanks srvc 14 day discharge Irving Canela [facility] Start: 11-01-2022 End: 11-01-2022 ambulatory Irving Canela Other [employer] Other Start: 11-01-2022 Telephone encounter Irving ROSS G [facility] Start: 10-31-2022 End: 10-31-2022 ambulatory Irving Canela Other [employer] Other Start: 10-31-2022 Telephone encounter Irving ROSS [facility] Start: 10-29-2022 End: 10-29-2022 ambulatory Irving Canela Other [employer] Other Start: 10-29-2022 Telephone encounter Irving ROSS [facility] Start: 10-28-2022 Evaluation and manag ement of inpatient DO Irving Canela Work Phone: [facility] [place] [facility] Work Phone: Start: 10-28-2022 observation encounter DO Miguel Canela Work Phone: [facility] Work Phone: Start: 10-26-2022 End: 10-26-2022 ambulatory Irving Canela Other [employer] Other Start: 10-26-2022 Patient encounter procedure Irving AMBRIZ [facility] Start: 10-20-2022 End: 10-21-[address] IRVING CANELA Facility: Start: 10-15-2022 Rx Renewal Irving Floyd Bal l Work Phone: [facility] 250 DO Work Phone: Start: 10-15-2022 End: 10-15-2022 ambulatory DO Irving Canela Work Phone: [facility] Work Phone: Start: 10-15-2022 End: 10-15-2022 Patient encounter procedure DO Irving Canela Work Phone: [facility] Work Phone: Start: 10-01-2022 End: 10-01-2022 ambulatory Irving Canela Other [employer] Other Start: 10-01-2022 Office outpatient vi sit 25 minutes Irving Canela [facility] Start: 09-30-2022 End: 09-30-2022 ambulatory Irving Canela Other [employer] Other Start: 09-30-2022 Telephone encounter Irving ROSS G [facility] Start: 09-08-2022 Patient encounter procedure Irving Mariel Rola Work Phone: [facility] 250 DO Work Phone: Start: 09-07-2022 End: 09-07-2022 ambulatory Irving Canela Other [facility] [employer] Other Start: 09-07-2022 Telephone encounter Irving ROSS G [facility] Start: 09-02-2022 End: 09-02-2022 ambulatory Irving Canela Other [facility] [employer] Other Start: 09-02-2022 Office outpatient vi sit 15 minutes Irving Canela [facility] Start: 08-18-2022 Rx Renewal Irving Rg l Work Phone: [facility] 250 DO Work Phone: Start: 08-18-2022 End: 08-18-2022 ambulatory Irving Canela Other [facility] [employer] Other Start: 08-18-2022 Office outpatient vi sit 25 minutes Irving Canela [facility] Start: 07-15-2022 Office outpatient vi sit 15 minutes Irving Canela Work Phone: [facility] 250 DO Work Phone: Start: 07-15-[address] Irving Canela Facility: Start: 07-12-2022 End: 07-12-2022 ambulatory DO Irving Canela Work Phone: [facility] Work Phone: Start: 07-12-2022 End: 07-12-2022 Patient encounter procedure DO Irving Canela Work Phone: [facility]Res[facility] Work Phone: Start: 06-15-2022 End: 06-15-[address] IRVING CANELA Facility:[facility] Start: 06-03-2022 Patient encounter procedure Irving Canela Work Phone: [facility] 250 DO Work Phone: Start: 05-31-[address] IRVING Downsi ty:[facility] Start: 05-13-2022 End: 05-14-2022 ambulatory RADHA RUBY . Facility:[facility] Start: 04-20-2022 End: 04-21-[address] IRVING CANELA Facility:[facility] Start: 04-13-2022 End: 04-13-[address] BEAU SIM . Facility:[facility] Start: 04-12-2022 Encounter for preprocedural laboratory examination DR BEAU SIM . [facility] Start: 04-10-2022 End: 04-11-[address] IRVING CANELA Facility:[facility] Start: 04-10-2022 End: 04-11-2022 Encounter for preprocedural laboratory examination DR IRVING CANELA Facility:[facility] Start: 03-25-2022 End: 03-26-[address] BEAU SIM . Facility:[facility] Start: 03-24-2022 End: 03-24-2022 ambulatory DO Irving Canela Work Phone: [facility] Work Phone: Start: 03-24-2022 End: 03-24-2022 Patient encounter procedure DO Irving Canela Work Phone: [facility] Start: 03-09-2022 End: 03-09-[address] BEAU SIM . Facility:[facility] Start: 02-26-2022 Patient encounter procedure Irving Canela Work Phone: [facility] 250 DO Work Phone: Start: 02-09-2022 End: 02-10-[address] BEAU SIM . Facility:[facility] Start: 01-26-2022 End: 01-26-[address] BEAU SIM . Facility:[facility] Start: 01-19-2022 End: 01-20-[address] PHILL EUBANKS Facility:[facility] Start: 01-18-2022 Patient encounter procedure [facility] Work Phone: Start: 01-07-2022 End: 01-08-[address] PHILL EUBANKS Facility:[facility] Start: 01-05-2022 Office outpatient vi sit 40 minutes Irving Canela Work Phone: [facility] Work Phone: Start: 12-29-2021 End: 12-30-[address] PHILL EUBANKS Facility:[facility] Start: 12-14-2021 Office outpatient vi sit 25 minutes Irving E Ball Work Phone: [facility] 250 DO Work Phone: Start: 11-09-2021 Adult health examination Miguel Canela Other [facility] [employer] Other Start: 10-29-2021 Patient encounter procedure Irving Floyd Ball Work Phone: [facility] 250 DO Work Phone: Start: 10-29-2021 Rx Renewal [facility] Rg [facility] Work Phone: Start: 10-16-2021 Patient encounter procedure Irving Floyd Ball Work Phone: [facility] 250 DO Work Phone: Start: 10-07-2021 Office outpatient vi sit 25 minutes Irving Floyd Ball [facility] Work Phone: Start: 10-07-2021 Patient encounter procedure Irving Floyd Ball Work Phone: [facility] 250 DO Work Phone: Start: 09-25-2021 AUDIT Irving Rg l Work Phone: [facility] Work Phone: Start: 09-07-2021 Patient encounter procedure Irving Floyd Ball Work Phone: [facility] 250 DO Work Phone: Start: 09-04-2021 Telephone encounter Irving Floyd Ball Work Phone: [facility] 250 DO Work Phone: Start: 08-14-2021 AUDIT Irving Floyd Bal l Work Phone: [facility] 250 DO Work Phone: Start: 07-06-2021 Rx Renewal Irving shelby Work Phone: [facility] 250 DO Work Phone: Start: 07-01-2021 Office outpatient vi sit 25 minutes Irving Floyd Rola Work Phone: [facility] 250 DO Work Phone: Start: 06-24-2021 Patient encounter procedure Florence Aden [employer]IC [employer]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 Work Phone: [facility] 250 DO Work Phone: Start: 06-15-2018 End: 06-16-2018 Patient encounter procedure DEFAULT PHYSICIAN Facility:[facility] Start: 05-09-2018 End: 05-10-2018 Patient encounter procedure ANNA WILEYBRETT Facility:[facility] Procedures Date Procedure Procedure Detail Performing Clinician Start: 11-29-2024 CRYOTHERAPY SKIN LESION Bashir Girard MD Work Phone: Start: 08-27-2024 CRYOTHERAPY SKIN LESION Bashir Girard [...] Start: 10-26-2023 Flexible fiberoptic sigmoidoscopy DO Levar tyleralex Canela Work Phone: Start: 10-20-2023 E coli [...] biopsy of prostate using ultrasound guidance Bethel Escapia back surgery Bethel CHAIREZ Colonoscopy Bethel Escapia Depression screening Diogo n Rola Other Destructive procedure Sukhjinder Canela Work Phone: History of placement of stent for coronary artery disease History of heart artery stent DO Irving Canela Work Phone: Percutaneous translu igor coronary angioplasty Irving Canela Work Phone: Placement of stent Bethel Simon SHREENEPTALI Procedure on back Irving E Rola Work Phone: Procedure on prostate Benjam in E Ball Work Phone: Tonsillectomy Bethel CHAIREZ Plan of Treatment Date Care Activity Detail Author Start: 09-02-2029 DTaP/Tdap/Td Vaccines (2 - Td or Tdap) DTaP/Tdap/Td Vaccines (2 - Td or Tdap) [facility] Start: 09-02-2029 Urine microalbumin profile DTaP,Tdap,Td Vaccine (2 - Td or Tdap) [facility] Start: 08-28-2026 Diabetes Screening Diabetes Screening [facility] Start: 03-05-2025 End: 03-05-2025 Patient encounter procedure 03/05/2025 1:30 PM EDT Office Visit [facility] [address] [place] [id number] Bashir Girard MD [address] [place] [address] [facility] Start: 11-29-2024 End: 11-29-2024 Patient encounter procedure [facility] Comment on above: Arrived Start: 11-15-2024 Medicare Annual Wellness Visit Medicare Annual Wellness Visit (AWV) [facility] Start: 08-29-2024 End: 08-29-2024 Patient encounter procedure [facility] [place] Comment on above: Arrived Start: 08-27-2024 End: 08-27-2024 Patient encounter procedure [facility] Comment on above: Arrived Start: 08-01-2024 End: 08-01-2024 Patient encounter procedure 08/01/2024 2:15 PM EST Office Visit [facility] [place] [address] [place] [id number] Irving Fonseca, [address] [place] [address] Arrived [facility] Comment on above: Arrived Start: 07-24-2024 End: 07-24-2025 Aspartate aminotransferase [Enzymatic activity/volume] in Serum or Plasma by With P-5'-P Aspartate Aminotransferase Lab Routine High risk medication use Paroxysmal atrial fibrillation (Multi) Expected: 07/24/2024 (Approximate), Expires: 07/24/2025 [facility] Service Area Work Phone: Comment on above: Expected: 07/24/2024 (Approximate), Expi res: 07/24/2025 Start: 07-24-2024 End: 07-24-2025 Basic metabolic 2000 panel - Serum or Plasma Basic Metabolic Panel Lab Routine High risk medication use Paroxysmal atrial fibrillation (Multi) Expected: 07/24/2024 (Approximate), Expires: 07/24/2025 [facility] Work Phone: Comment on above: Expected: 07/24/2024 (Approximate), Expi res: 07/24/2025 Start: 07-24-2024 End: 07-24-2025 Complete Pulmonary Function Test (Spirometry/DLCO/Lung Volumes) Complete Pulmonary Function Test (Spirometry/DLCO/Lung Volumes) PFT Routine High risk medication use Paroxysmal atrial fibrillation (Multi) Expected: 07/24/2024 (Approximate), Expires: 07/24/2025 [facility] Work Phone: Comment on above: Expected: 07/24/2024 (Approximate), Expi res: 07/24/2025 Start: 07-24-2024 End: 07-24-2024 Patient encounter procedure 07/24/2024 2:00 PM EST Office Visit [facility] [address] [place] [address] Brendon Baron DO [address] [facility] [address] [place] [address] [facility] Start: 07-24-2024 End: 07-24-2025 Thyrotropin [Units/volume] in Serum or Plasma Thyroid Stimulating Hormone Lab Routine High risk medication use Paroxysmal atrial fibrillation (Multi) Expected: 07/24/2024 (Approximate), Expires: 07/24/2025 [facility] Work Phone: Comment on above: Expected: 07/24/2024 (Approximate), Expi res: 07/24/2025 Start: 07-24-2024 End: 07-24-2025 XR Chest 2 Views XR chest 2 views Imaging Routine High risk medication use Paroxysmal atrial fibrillation (Multi) Expected: 07/24/2024 (Approximate), Expires: 07/24/2025 [facility] Work Phone: Comment on above: Expected: 07/24/2024 (Approximate), Expi res: 07/24/2025 Start: 07-23-2024 End: 07-23-2024 Patient encounter procedure 07/23/2024 12:45 PM EST Office Visit [facility] [address] [place] [address] Irving Fonseca DO [address] [place] [address] Basal cell carcinoma of skin of scalp and neck [facility] Comment on above: Basal cell carcinoma of skin of scalp an d neck Start: 05-21-2024 End: 05-21-2024 Patient encounter procedure [facility] Comment on above: Arrived Start: 03-29-2024 End: 12-27-2024 Aspartate aminotransferase [Enzymatic activity/volume] in Serum or Plasma by With P-5'-P Aspartate Aminotransferase Lab Routine Paroxysmal atrial fibrillation (Multi) High risk medication use Expected: 03/29/2024 (Approximate), Expires: 12/27/2024 [facility] Service Area Work Phone: Comment on above: Expected: 03/29/2024 (Approximate), Expi res: 12/27/2024 Start: 03-29-2024 End: 12-27-2024 Basic metabolic 2000 panel - Serum or Plasma Basic Metabolic Panel Lab Routine Paroxysmal atrial fibrillation (Multi) High risk medication use Expected: 03/29/2024 (Approximate), Expires: 12/27/2024 [facility] Work Phone: Comment on above: Expected: 03/29/2024 (Approximate), Expi res: 12/27/2024 Start: 03-29-2024 End: 12-27-2024 Lipid 1996 panel - Serum or Plasma Lipid Panel Lab Routine Mixed hyperlipidemia Expected: 03/29/2024 (Approximate), Expires: 12/27/2024 [facility] Work Phone: Comment on above: Expected: 03/29/2024 (Approximate), Expi res: 12/27/2024 Start: 03-29-2024 End: 12-27-2024 Thyrotropin [Units/volume] in Serum or Plasma Thyroid Stimulating Hormone Lab Routine Paroxysmal atrial fibrillation (Multi) High risk medication use Expected: 03/29/2024 (Approximate), Expires: 12/27/2024 [facility] Work Phone: Comment on above: Expected: 03/29/2024 (Approximate), Expi res: 12/27/2024 Start: 02-26-2024 COVID-19 Vaccine ( season) COVID-19 Vaccine ( season) [facility] Start: 02-26-2024 Covid-19 Vaccine ( season) Covid-19 Vaccine ( season) [facility] Start: 02-26-2024 Influenza vaccination [facility] Start: 02-14-2024 End: 02-14-2024 Patient encounter procedure 02/14/2024 1:15 PM EDT Office Visit [facility] [address] [place] [address] Bashir Girard MD [address] [place] [address] Arrived [facility] Comment on above: Arrived Start: 02-02-2024 Patient referral [facility] Work Phone: Start: 12-28-2023 End: 12-27-2025 NM Heart Perfusion W stress and W radionuclide IV Nuclear Stress Test Cardiac Nuclear Medicine Routine Chest pain, unspecified type Expected: 12/28/2023 (Approximate), Expires: 12/27/2025 [facility] Work Phone: Comment on above: Expected: 12/28/2023 (Approximate), Expi res: 12/27/2025 Start: 10-26-2023 [facility] Start: 09-14-2023 Patient referral [facility] Work Phone: Start: 09-03-2023 COVID-19 Vaccine () COVID-19 Vaccine () [facility] Start: 07-20-2023 FUV, Provider: Brendon Baron, Status: Pen, Time: 10:00 AM FUV, Provider: Brendon Baron, Status: Pen, Time: 10:00 AM -[facility] [address] DO Work Phone: Start: 06-27-2023 Advance Directive Discussion Advance Directive Discussion [facility] Start: 04-21-2023 [facility] Start: 03-07-2023 FUV, Provider: Florence Norman, Status: Pen, Time: 9:00 AM FUV, Provider: Florence Norman, Status: Pen, Time: 9:00 AM -[facility] [address] DO Work Phone: Start: 01-03-2023 FUV, Provider: Florence Norman, Status: Pen, Time: 11:00 AM FUV, Provider: Florence Norman, Status: Pen, Time: 11:00 AM -[facility] [address] DO Work Phone: Start: 12-08-2022 DENIA, Provider: LILLIANA MORALEZ CLINICAL DOCUMENTATION IMPROVEMENT SPECIALIST 1,[id number], Status: Pen, Time: 11:15 AM DENIA, Provider: LILLIANA MORALEZ CLINICAL DOCUMENTATION IMPROVEMENT SPECIALIST 1,[id number], Status: Pen, Time: 11:15 AM -[facility] [address] DO Work Phone: Start: 12-08-2022 EVENT BEBE, Provider: LILLIANA MORALEZ CLINICAL DOCUMENTATION IMPROVEMENT SPECIALIST 1,[id number], Status: Pen, Time: 11:00 AM EVENT BEBE, Provider: LILLIANA MORALEZ CLINICAL DOCUMENTATION IMPROVEMENT SPECIALIST 1,[id number], Status: Pen, Time: 11:00 AM -[facility] [address] DO Work Phone: Start: 10-29-2022 [facility] Start: 10-28-2022 Hospital admission [facility] Start: 10-28-2022 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 land economist [facility] Start: 10-28-2022 [facility] Start: 10-28-2022 Plain chest X-ray XR chest 2V* [facility] Start: 10-28-2022 XR Chest 2 Views [facility] Start: 07-15-2022 FUV, Provider: Brendon Baron, Status: Pen, Time: 10:20 AM FUV, Provider: Brendon Baron, Status: Pen, Time: 10:20 AM -[facility] [address] DO Work Phone: Start: 01-05-2022 FUV, Provider: Brendon Baron, Status: Pen, Time: 1:30 PM FUV, Provider: Brendon Baron, Status: Pen, Time: 1:30 PM -[facility] [address] DO Work Phone: Start: 12-14-2021 FUV, Provider: Brendon Ceja, Status: Pen, Time: 8:30 AM FUV, Provider: Brendon Ceja, Status: Pen, Time: 8:30 AM -[facility] [address] DO Work Phone: Start: 11-20-2021 FUV, Provider: Brendon Ceja, Status: Pen, Time: 3:30 PM FUV, Provider: Brendon Ceja, Status: Pen, Time: 3:30 PM -[facility] [address] DO Work Phone: Start: 10-15-2021 EKG, Provider: LILLIANA MORALEZ CLINICAL DOCUMENTATION IMPROVEMENT SPECIALIST 1,[id number], Status: Pen, Time: 1:00 PM EKG, Provider: LILLIANA MORALEZ CLINICAL DOCUMENTATION IMPROVEMENT SPECIALIST 1,[id number], Status: Pen, Time: 1:00 PM -[facility] [address] DO Work Phone: Start: 10-07-2021 FUV, Provider: Florence Norman, Status: Pen, Time: 9:30 AM FUV, Provider: Florence Norman, Status: Pen, Time: 9:30 AM -[facility] [address] DO Work Phone: Start: 09-07-2021 HOLTER MON, Provider: LILLIANA MORALEZ CLINICAL DOCUMENTATION IMPROVEMENT SPECIALIST 1,[id number], Status: Pen, Time: 9:30 AM HOLTER MON, Provider: LILLIANA MORALEZ CLINICAL DOCUMENTATION IMPROVEMENT SPECIALIST 1,[id number], Status: Pen, Time: 9:30 AM -[facility] [address] DO Work Phone: Start: 09-02-2021 FUV, Provider: Florence Norman, Status: Pen, Time: 9:00 AM FUV, Provider: Florence Norman, Status: Pen, Time: 9:00 AM -[facility] [address] DO Work Phone: Start: 07-01-2021 FUV, Provider: Brendon Baron, Status: Pen, Time: 11:20 AM FUV, Provider: Brendon Baron, Status: Pen, Time: 11:20 AM -[facility] [address] DO Work Phone: Start: 03-14-2018 Pneumococcal vaccination Pneumococcal Vaccine (2 of 2 - PCV) [facility] Start: 03-14-2018 Pneumococcal Vaccine: 65+ Years (2 - PCV) Pneumococcal Vaccine: 65+ Years (2 - PCV) [facility] Start: 03-14-2018 Pneumococcal Vaccine: 65+ Years (2 of 2 - PCV) Pneumococcal Vaccine: 65+ Years (2 of 2 - PCV) [facility] Start: 2016 RSV High Risk: (Elderly (60+) or Population) (1 - 1-dose 75+ series) RSV High Risk: (Elderly (60+) or Population) (1 - 1-dose 75+ series) [facility] Start: 2016 RSV Vaccine (1 - 1-dose 75+ series) RSV Vaccine (1 - 1-dose 75+ series) [facility] Start: 01-07-2015 Zoster Vaccines (2 of 3) Zoster Vaccines (2 of 3) [facility] Start: 2001 RSV patients and/or patients aged 60+ years (1 - 1-dose 60+ series) RSV patients and/or patients aged 60+ years (1 - 1-dose 60+ series) [facility] Start: 10-14-1963 DTaP/Tdap/Td Vaccines (1 - Tdap) DTaP/Tdap/Td Vaccines (1 - Tdap) [facility] Start: 10-14-1959 Anxiety Screening Anxiety Screening [facility] Start: 10-14-1959 Depression Screening Depression Screening [facility] Start: 10-14-1959 Diabetes mellitus screening Diabetes Screening [facility] Start: 1941 Lipid panel Lipid Panel [facility] Start: 1941 Medicare Annual Wellness Visit Medicare Annual Wellness Visit (AWV) [facility] Start: 1941 Thyroid stimulating hormone measurement TSH Level [facility] Bacteria identified in Stool by Culture [facility] Calculated LDL cholesterol level [facility] Cholesterol.total/Ch olest stuart in HDL [Mass Ratio] in Serum or Plasma [facility] Dermatopathology exam Dermatopat hology exam Pathology and Cytology Timed Neoplasm of unspecified behavior of bone, soft tissue, and skin Release Upon Ordering for 1 Occurrences starting 05/21/2024 [facility] Work Phone: Comment on above: Release Upon Ordering for 1 Occurrences starting 05/21/2024 Elastase.pancreatic [Mass/mass] in Stool [facility] Glucose measurement estimated from glycated hemoglobin [facility] Hemoglobin A1c/Hemoglobin.total in Blood [facility] End: 01-02-2024 NM Heart Perfusion W stress and W radionuclide IV [facility] Service Area Work Phone: Comment on above: Once for 1 Occurrences starting 07/08/20 24 until 01/02/2024 Patient Education [facility] Work Phone: Patient referral [facility] Work Phone: VLDL cholesterol measurement [facility] XR Abdomen Single view [facility] Immunizations Immunization Date Immunization Notes Care Provider Fa nicholas 09-03-2024 RSV, preF3, adj, pf Irving Canela DO Work Phone: [facility] 04-26-2024 Seasonal trivalent influenza vaccine, adjuvanted, preservative free Irving Fonseca DO Work Phone: [facility] 04-26-2024 influenza virus vaccine, unspecified formulation Bashir Girard MD Work Phone: [facility] 05-05-2023 Influenza, Seasonal, Quadrivalent, Adjuvanted Irving Fonseca DO Work Phone: [facility] 05-05-2023 SARS-COV-2 (COVID-19 ) vaccine, mRNA, spike protein, LNP, PF, 50 mcg/0.5 mL Irving Fonseca DO Work Phone: [facility] 05-05-2023 influenza virus vaccine, unspecified formulation Brendon Baron DO Work Phone: [facility] Work Phone: 05-04-2023 influenza virus vaccine, unspecified formulation DO Irving Canela Work Phone: [facility] 05-04-2023 influenza, high dose seasonal, preservative-free Irving Canela Other [employer] Other 04-29-2022 COVID-19 Moderna (BIvalent) Irving Canela Other [facility] 04-29-2022 Moderna SARS-CoV-2 Vaccination Brendon Baron DO Work Phone: [facility] Work Phone: 04-15-2022 Fluad Quadrivalent 0 .5 ML Intramuscular Prefilled Syringe Irving Canela Work Phone: [facility] [address] DO Work Phone: 04-15-2022 influenza virus vaccine, split virus (incl. purified surface antigen) Irving Canela Other [facility] [employer] Other 04-15-2022 influenza virus vaccine, unspecified formulation DO Irving Canela Work Phone: [facility] 04-15-2022 influenza, injectabl e, quadrivalent, preservative free Brendon Baron DO Work Phone: [facility] Work Phone: 03-27-2022 influenza virus vaccine, unspecified formulation DO Irving Canela Work Phone: [facility] 03-27-2022 influenza, high dose seasonal, preservative-free Irving Canela Work Phone: [facility] 250 DO Work Phone: Comment on above: Series: 08-14-2021 Moderna SARS-CoV-2 Vaccination Irving Fonseca DO Work Phone: [facility] 07-14-2021 Moderna SARS-CoV-2 Vaccination Irving Fonseca DO Work Phone: [facility] 04-17-2021 Moderna COVID-19 Vaccine 100 MCG/0.5ML Intramuscular Suspension Irving Canela Work Phone: [facility] 03-30-2021 influenza virus vaccine, split virus (incl. purified surface antigen) Irving Canela Other [facility] [employer] Other 03-30-2021 influenza virus vaccine, unspecified formulation DO Irving Canela Work Phone: [facility] 03-27-2021 influenza virus vaccine, unspecified formulation Irving Fonseca DO Work Phone: [facility] 08-14-2020 Moderna COVID-19 Vaccine 100 MCG/0.5ML Intramuscular Suspension Irving Canela Work Phone: [facility] 07-14-2020 Moderna COVID-19 Vaccine 100 MCG/0.5ML Intramuscular Suspension Irving Canela Work Phone: [facility] 04-14-2020 influenza virus vaccine, split virus (incl. purified surface antigen) Irving Canela Other [facility] [employer] Other 04-14-2020 influenza virus vaccine, unspecified formulation DO Irving Canela Work Phone: [facility] 03-27-2020 influenza virus vaccine, unspecified formulation Irving Fonseca DO Work Phone: [facility] 09-03-2019 tetanus toxoid, redu praneeht diphtheria toxoid, and acellular pertussis vaccine, adsorbed Irving Fonseca DO Work Phone: [facility] 03-07-2019 influenza, high dose seasonal, preservative-free Brendon Baron DO Work Phone: [facility] Work Phone: 03-07-2019 Seasonal trivalent influenza vaccine, adjuvanted, preservative free Irving Canela Work Phone: [facility] 250 DO Work Phone: 02-25-2019 influenza virus vaccine, unspecified formulation Irving Fonseca DO Work Phone: [facility] 09-07-2018 zoster vaccine recombinant Irving Fonseca DO Work Phone: [facility] 06-24-2018 zoster vaccine recombinant Irving Canela Work Phone: [facility] DO Work Phone: 06-07-2018 zoster vaccine recombinant Irving Fonseca DO Work Phone: [facility] 04-11-2018 influenza, injectabl e, quadrivalent, preservative free Irving Canela Work Phone: [facility] 250 DO Work Phone: 03-27-2018 influenza virus vaccine, unspecified formulation Irving Fonseca DO Work Phone: [facility] 03-08-2018 influenza virus vaccine, split virus (incl. purified surface antigen) Irving Canela Other [facility] [employer] Other 03-08-2018 influenza virus vaccine, unspecified formulation DO Irving Canela Work Phone: [facility] 04-27-2017 influenza virus vaccine, unspecified formulation Irving Fonseca DO Work Phone: [facility] 03-14-2017 influenza virus vaccine, split virus (incl. purified surface antigen) Irving Canela Other [facility] [employer] Other 03-14-2017 influenza virus vaccine, unspecified formulation DO Irving Canela Work Phone: [facility] 03-14-2017 influenza, high dose seasonal, preservative-free Irving Canela Work Phone: [place] [address] DO Work Phone: 03-14-2017 pneumococcal polysaccharide vaccine, 23 valent Irving Canela Work Phone: [facility] 03-27-2016 influenza virus vaccine, unspecified formulation Irving Fonseca DO Work Phone: [facility] 03-12-2016 influenza virus vaccine, split virus (incl. purified surface antigen) Irving Canela Other [facility] [employer] Other 03-12-2016 influenza virus vaccine, unspecified formulation DO Irving Cnaela Work Phone: [facility] 03-12-2016 pneumococcal conjuga te vaccine, 13 valent Irving Canela Other [facility] 03-26-2015 influenza virus vaccine, split virus (incl. purified surface antigen) Irving Canela Other [facility] [employer] Other 03-26-2015 influenza virus vaccine, unspecified formulation DO Irving Canela Work Phone: [facility] 11-12-2014 zoster vaccine, live Benjzeny Canela Work Phone: [facility] 04-03-2014 tetanus and diphther ia toxoids, adsorbed, preservative free, for adult use (5 Lf of tetanus toxoid and 2 Lf of diphtheria toxoid) Irving Canela Other [facility] 04-03-2009 influenza virus vaccine, unspecified formulation Irving Fonseca DO Work Phone: [facility] 03-27-2008 influenza virus vaccine, unspecified formulation Irving Fonseca DO Work Phone: [facility] 11-07-2007 pneumococcal vaccine , unspecified formulation Irving Fonseca DO Work Phone: [facility] Payers Date Payer Category Payer Medicare supplementa l policy (as second payer) [employer] MEDIC[employer] SUPPLEMENT [id number] 2024 Private Health Insurance [id number] 2019 Medicare [id number] 2015 Private Health Insurance [id number] [id number] 2006 Medicare [id number] [id number]. [id number] 1959 Medicare [id number] 1959 Private Health Insurance [id number] 1959 Self-pay [id number] 1941 Unknown [id number] 2.16.840.1.998670.3.579. 2.647 1941 Unknown [id number] 2.16.840.1.695544.3.579. 2.647 1941 Unknown [id number] 2.16.840.1.795996.3.579. 2.593 1941 Unknown [id number] 2.16.840.1.542688.3.579. 2.593 1941 Unknown [id number] 2.16.840.1.442078.3.579. 2.593 1941 Unknown [id number] 2.16.840.1.645409.3.579. 2.593 1941 Unknown [id number] 2.16.840.1.623420.3.579. 2.593 1941 Unknown [id number] 2.16.840.1.852541.3.579. 2.593 1941 Unknown [id number] 2.16.840.1.645785.3.579. 2.593 1941 Unknown [id number] 2.16.840.1.753353.3.579. 2.593 1941 Unknown [id number] 2.16.840.1.897081.3.579. 2.593 1941 Unknown [id number] 2.16.840.1.017122.3.579. 2.593 1941 Unknown [id number] 2.16.840.1.955252.3.579. 2.593 1941 Unknown [id number] 2.16.840.1.400863.3.579. 2.593 1941 Unknown [id number] 2.16.840.1.573126.3.579. 2.593 1941 Unknown [id number] 2.16.840.1.069275.3.579. 2.356 1941 Unknown [id number] 2.16.840.1.842679.3.579. 2.356 1941 Unknown [id number] 2.16.840.1.437984.3.579. 2.356 1941 Unknown [id number] 2.16.840.1.280001.3.579. 2.356 1941 Unknown [id number] 2.16.840.1.558114.3.579. 2.356 1941 Unknown [id number] 2.16.840.1.221240.3.579. 2.356 1941 Unknown [id number] 2.16.840.1.340426.3.579. 2.356 1941 Unknown [id number] 2.16.840.1.372790.3.579. 2.124 1941 Unknown [id number] 2.16.840.1.238095.3.579. 2.1245 1941 Unknown [id number] 2.16.840.1.832443.3.579. 2.1245 1941 Unknown [id number] 2.16.840.1.519945.3.579. 2.1245 1941 Unknown [id number] 2.16.840.1.004092.3.579. 2.124 1941 Unknown [id number] 2.16.840.1.603329.3.579. 2.727 1941 Unknown [id number] 2.16.840.1.426331.3.579. 2.124 1941 Unknown [id number] 2.16.840.1.422772.3.579. 2.124 1941 Unknown [id number] 2.16.840.1.061706.3.579. 2.1259 1941 Unknown [id number] 2.16.840.1.711192.3.579. 2.1258 1941 Unknown [id number] 2.16.840.1.093818.3.579. 2.1258 1941 Unknown [id number] 2.16.840.1.448236.3.579. 2.1258 1941 Unknown [id number] 2.16.840.1.084378.3.579. 2.1258 1941 Unknown [id number] 2.16.840.1.163575.3.579. 2.1258 1941 Unknown [id number] 2.16.840.1.232990.3.579. 2.1258 1941 Unknown [id number] 2.16.840.1.556519.3.579. 2.1258 1941 Unknown [id number] 2.16.840.1.653170.3.579. 2.1259 Medicare [id number] Private Health Insurance [facility] [id number] Unknown Unknown [id number] 2.16.840.1.382917.3.579. 2.593 Unknown [id number] 2.16.840.1.242762.3.579. 2.531 Unknown [id number] 2.16.840.1.462637.3.579. 2.531 Unknown [id number] 2.16.840.1.931193.3.579. 2.531 Social History Date Type Detail Facility Start: 07-25-2023 End: 11-29-2024 Consumes alcohol occasionally Consumes alcohol occasionally -[facility] [address] DO Work Phone: Comment on above: 1-2 cups daily; quit 1995ish; Start: 03-10-2022 End: 05-12-2023 Tobacco smoking status NHIS Never smoked tobacco (finding) [facility] Start: 1940 Sex Assigned At Male F [facility] Start: 07-25-2023 End: 11-29-2024 Sex Assigned At [facility] Start: 04-21-2023 End: 11-16-2024 Tobacco smoking status NHIS Ex-smoker (finding) [facility] History of tobacco use Current smoker [facility] Work Phone: History of tobacco use Cigarette Smoker [facility] Work Phone: Start: 07-25-2023 End: 11-29-2024 Alcohol intake Current drinker of alcohol (finding) [facility] Work Phone: Start: 06-24-2023 Alcohol Comment occasional [facility] Work Phone: Start: 1940 Sex Assigned At Not on file [facility] Work Phone: Start: 07-15-2023 End: 07-24-2024 Exposure to SARS-CoV-2 (event) Not sure [facility] Tobacco smoking stat us NHIS Tobacco smoking consumption unknown [facility] National Score (1-100), lower number is lower risk [address] [facility] Start: 05-17-2024 End: 11-30-2024 Sex Male (finding) [facility] Start: 05-12-2023 End: 12-28-2023 Tobacco use and exposure Smokeless tobacco non-user [facility] Work Phone: NEGATED: Highlighted rowStart: NINF History of tobacco use Passive smoker [facility] Goals Date Patient Goal Desired Activity /State Clinical Notes 12-30-2021 to 11-29-2024 Bashir Girard MD - 11/29/2024 1:35 PM EDT Note Date & Type Note Facility 11-29-2024 History of Presen t illness Narrative Skin Check Location: Patient requests a full body skin examination Dermatologic history: history of Actinic Keratosis, history of Basal Cell Carcinoma, history of Squamous Cell Carcinoma, history of Melanoma Last visit: 3 months ago Established patient Melanoma History Location: right shoulder Date of [...] Left foot Examined Back Examined Buttocks Examined Patient kept underwear on Abdomen Examined Digits,nails: Examined Right arm Examined Left arm Examined Lymphatics: Not examined Hands Examined no cervical lymphadenopathy, no supraclavicular lymphadenopathy, no axillary lymphadenopathy Skin Exam 1. SEBORRHEIC KERATOSIS Generalized Stuck on verrucous, escobar-brown papules and plaques. Patient was counseled regarding these benign growths. Removal is normally not necessary, but they may be removed if they are symptomatic or for cosmetic reasons. 2. LENTIGINES Generalized Scattered escobar macules in sun-exposed areas. The patient was informed that lentigines are benign pigmented lesions that occur on sun-exposed and sun-damaged skin. No treatment is necessary. Recommended regular use of broad spectrum sunscreen SPF 30 or higher 3. HISTORY OF MALIGNANT MELANOMA OF SKIN Right Shoulder No evidence of recurrence at melanoma scar. The patient was counseled that scars from excisional sites of melanoma should be monitored closely for recurrence. The patient was instructed to contact the office for any new, changing, or symptomatic moles. The patient was also instructed to contact the office for any new lesions that develop within or around the previous melanoma scar. 4. HISTORY OF BASAL CELL CARCINOMA Neck - Anterior No evidence of recurrence at BCC scar. The patient was counseled that scars from excisional sites of nonmelanoma skin cancers should be monitored closely for recurrence. The patient was instructed to contact the office for any new, changing, or symptomatic moles. The patient was also instructed to contact the office for any new lesions that develop within or around the previous surgery scar. 5. 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 6. ACTINIC KERATOSIS (11) Left Forearm - Posterior (4), Left Parotid Area, Left Tragus, Right Malar Cheek, Right [place], Right Parotid Area, Right Superior [place], Right Wrist - Posterior Erythematous scaly papules Patient was counseled regarding [...] limited to risks of scarring, darker or dock associate pigmentary changes, recurrence, incomplete removal and infection. Method: Liquid nitrogen was used to treat the lesion(s) with two 5-10 second freeze-thaw cycles. Number of lesions treated: 11 Post-procedure instructions: Instructions were given orally and in writing. The office will be contacted if the lesion fails to resolve despite treatment, or if a side effect develops such as abnormal crusting, scabbing, redness or tenderness Cryotherapy, skin lesion - Left Forearm - Posterior (4), Left Parotid Area, Left Tragus, Right Malar Cheek, Right Mid [place], Right Parotid Area, Right Superior [place], Right Wrist - Posterior 7. INFLAMMATORY PAPULE Left Nasal Sidewall [place] papule Favoring benign lesion. Will give lesion 3-4 weeks to resolve. Patient instructed to call in 3-4 weeks if lesion has not resolved for a biopsy. Next Visit: 3 months documented in this encounter [facility] 10-29-2024 Evaluation note Authored October 29, 2024 11:22a m 84-year-old man with SIBO ca me today for follow up Colonoscopy in 03/2023 was normal. However colonic biopsies were not done. Flexible sigmoidoscopy on 10/26/2023 showed hyperplastic polyps and internal hemorrhoids, random biopsies were negative for microscopic colitis. Duodenal biopsies in 03/2023 was negative for celiac. Labs including TSH, ESR, CRP, fecal calprotectin HIV ab, fecal elastase and stool infectious workup were unremarkable Hydrogen breath test on 03/29/24 was positive. Symptoms improved significantly after patient completed rifaximin course however he continues to have 3-4 formed bowel movements a day. - Will prescribe another course of rifaximin 550 mg 3 times daily for 14 days. [facility] Work Phone: 1([phone]) 631-336903-05-2025 History of Present illness Narrative* Irving Fonseca DO - 08/29/2024 2:45 PM EST HPI Patient presents today 1 month postop repair of a right neck Mohs defect with the flap. He is doingfine. Relevant postoperative physical examination Examination shows the flap is well healed and settling down nicely. Assessment/plan Valentín was seen today for post-op. Diagnoses and all orders for this visit: Mohs defect of neck (Primary) Comments: I advised the patient to massage the area to soften up some of the fibrosis. I will see him back asneeded documented in this encounterSSM Saint Mary's Health [id number] [facility] [place] [address] [place] [address] Pulmonary Function Signed Patient: Valentín Buckner MR#: [id number] : 1940 Date of Service:0 08/28/24 Age/Sex: 83 / M ADM Date: 5 Loc: RT Room: Type: [facility] Attending Dr: Alfred Baron DO Copies to: DO Monty Vinson MD W Scott Sheldon, DO~ Pulmonary Function Test Complete pulmonary function studies were performed on August 28, 2024 for patient with diagnosis of long-term high risk medication use. Spirometry was acceptableand reproducible with adequate duration of exhalation. Please refer to the pulmonary function test report for the raw data. SPIROMETRY: Spirometry was performed without bronchodilator studies and reveals an FEV1 to FVC ratio of 70% with an FEV1 of 3.03 liters (115% predicted) and a forced vital capacity of 4.34 liters (115% predicted). LUNG VOLUMES: Measurement of static lung volumes was performed by plethysmography and indicates a total lung capacity of 7.79 liters (113% predicted) with a residual volume which was 120% of predicted and a residual volume to total lung capacity ratio of 44%. DIFFUSION CAPACITY: Single breath diffusion capacity is 24.5 mL/mmHg/min (107% predicted) and is 144% predicted after adjustment for alveolar volume. SUMMARY: These pulmonary function studies are normal without evidence of obstruction, restriction, significant air trapping, nor diffusion abnormality. There has been no significant change in pulmonary function compared to prior studies of August 29, 2023 and overall no significant change in pulmonary functiondating back to June 2022. There is no indication for adjustment in medical therapy on the basis of these studies. Clinical correlation is recommended. Transcribed By: JARROD 08/28/241927 Dictated By: Monty Cruz MD 08/28/241927 Signed By: 08/28/241929 [facility]03-03-2025 History of Present illness Narrative * Bashir Girard MD - 08/27/2024 1:05 PM EST Images from the original note [...] limited to risks of scarring, darker or dock associate pigmentary changes, recurrence, incomplete removal and infection. [...] 3 month skin exam documented in this encounterSSM Saint Mary[facility] Health [id number] History of Present illness Narrative* Irving Fonseca DO - 08/01/2024 2:15 PM EST HPI Patient presents today status post repair [...] back in a month documented in this encounterSSM Saint Mary's Health CenterAlvdaxgdnl66-09-7266 History of Present illness Narrative* Brendon Baron DO - 07/24/2024 2:00 PM EST Subjective Valentín Buckner is a 83 y.o. male Chief Complaint Annual Exam 83-year-old gentleman returns for follow-up, he has an elective skin graft surgery to be performed tomorrow by Dr. Torres, following extensive resection for basal cell cancer on his right anterior neck. Patient is otherwise doing well from a cardiovascular standpoint even underwent stress imaging December2023 that was completely normal with normal ejection fraction. He has a history of ASHD with three-vessel PCI's in [place], last catheterization performed by myself, from 06/16 [...] Rfl: Assessment/Plan 1. Coronary artery disease involving tangirnaq coronary artery of tangirnaq heart without angina pectoris 2. Bradycardia Follow [...] exam, discussion and plan. [facility] Work Phone: 1([phone]) 114-520101-28-2025 Instructions* Patient Instructions* Bita Cox RN - 07/24/2024 2:00 PM [...] Provided instructions on exercise. documented in this encounterB[facility] Work Phone: 1(229) 163-237701-27-2025 History of Present illness Narrative* Irving Fonseca, DO - 07/23/2024 12:45 PM EST Allergies as of 07/23/2024 - Reviewed 07/19/2024 [...] 1 tablet by mouth in the morning., Disp:, Rfl: loratadine (Claritin) 10 MG tablet, Take [...] are not limited to disfigurment, scarring, poor cosemeticresults, difficuty with function of the organ/site involved with the resection a/o flap, bleeding, i nfection, of the flap, numbness, neuro/vascular injury, need for additional surgery a/o treatment, etc. The pateint has consented to proceed. documented in this encounterSSM Saint [facility] Health [id number] History of Present illness Narrative* Pedro Wagner MD - 07/19/2024 1:30 PM EST Images from the original note [...] as well as the risks, benefits, and alternatives.The risks of infection, scarring, bleeding, prolonged wound healing, incomplete removal, allergy toanesthesia or meds, nerve injury, and recurrence were addressed.) [place] Protocol: Procedure explained and questions answered to [...] sodium bicarbonate Procedure Details: Biopsy accession number: [id number] Biopsy lab: [facility] Date of biopsy: 05/21/2024 Frozen section [...] lab where it was chromacoded and processed. Mohssections were prepared with serial tissue sections, stained, [...] necessary. Next visit: 08/27/2024 documented in this encounterSSM Saint Mary's Health CenterQfdyrycscs38-92-8598 Evaluation note* Diagnosis Onset Date Resolution Status Admit Date Essential hypertension acute [facility] 2024 1:46pm Chronic obstructive pulmonar y disease with (acute) lower respiratory infection noneactive July 102024 1:46pm Acute exacerbation of chroni c obstructive airways disease noneactive [facility] pagan 2024 1:46pm ASHD (arteriosclerotic heart disease) acute July 19 11:23am Essential hypertension acute [place] 2024 11:23am Gastroesophageal reflux dise ase with esophagitis without hemorrhage acute July 19 11:23am Iron deficiency anemia due t o chronic blood loss acute July 19, 2024 11:23am Irritable bowel syndrome wit h diarrhea acute July 19 11:23am Paroxysmal atrial fibrillation acute July 19, 2024 11:23am Primary insomnia acute July 19, 2024 11:23am [facility] Work Phone: 1([phone]) 381-126911-25-2024 History of Present illness Narrative* Bashir Girard [...] limited to risks of scarring, darker or dock associate pigmentary changes, recurrence, incomplete removal and infection. [...] bone, soft tissue, and skin anterior neck [place] pearly papule Lesion biopsy Type of biopsy: [...] 3 month skin exam documented in this encounterSSM Saint Mary's Health CenterPvahrtclva25-26-2481 Evaluation note* Diagnosis Onset Date Resolution Status Admit Date Acute bronchitis due to othe r specified organisms acute April 8:16am Insomnia acute May 17, 2024 8:16am Small intestinal bacterial overgrowth (SIBO) acute May 17, 2024 8:16am [facility] Work Phone: 1([phone]) 931-871811-21-2024 Evaluation note* Diagnosis Onset Date Resolution Status Admit Date Acute bronchitis due to othe r specified organisms acute April 8:16am Insomnia acute May 17, 2024 8:16am Small intestinal bacterial overgrowth (SIBO) acute May 17, 2024 8:16am Essential hypertension acute [facility] 2024 1:46pm Chronic obstructive pulmonar y disease with (acute) lower respiratory infection noneactive July 102024 1:46pm Acute exacerbation of chroni c obstructive airways disease noneactive [facility] pagan 2024 1:46pm ASHD (arteriosclerotic heart disease) acute July 19 11:23am Essential hypertension acute Ja lorenzoary 2024 11:23am Gastroesophageal reflux disease with esophagitis without hemorrhage acute July 19, 2024 11:23am Iron deficiency anemia due t o chronic blood loss acute July 19, 2024 11:23am Irritable bowel syndrome wit h diarrhea acute July 19 11:23am Paroxysmal atrial fibrillation acute July 19, 2024 11:23am Primary insomnia acute July 19, 2024 11:23am [facility] Work Phone: 1([phone]) 978-623810-03-2024 History of Present illness Narrative* Keiko Naik APRN.NIB INSPECTOR - 03/29/2024 2:43 PM EDT Glucose - SIBO CPT 27897 Hydrogen Breath Test Valentín Recioradha 1940 March 29, 2024 Referring Physician: Dr. Sung Ochoa Indication: NSG TEST INDICATIONS: Diarrhea R19.7 Weight: 196 lbs Location: [facility] Duration of Test: 2 Hours Hydrogen Methane [...] Test Results: positive Physician Signature: Keiko Naik APRN.NIB INSPECTOR documented in this [facility] Evaluation note* Diagnosis Onset Date Resolution [...] Primary insomnia acute Septembe r 2023 11:25am [facility] Work Phone: 1(480) 269-883908-20-2024 History of Present illness Narrative* Bashir Girard [...] (6), Left Shoulder - Anterior, Left Superior [place], Left Yazidism, Right Forearm - Posterior (2) Erythematous scaly [...] limited to risks of scarring, darker or dock associate pigmentary changes, recurrence, incomplete removal and infection. [...] Posterior (6),Left Shoulder - Anterior, Left [place], Left Yazidism, Right Forearm - Posterior (2) Related Medications [...] Next Visit: 3 months documented in this [facility]08-08-2024 Evaluation note* [facility] Authored February 02, 2024 11: 45am [...] is negative will consider Imodium or Bentyl [facility] Work Phone: 1(168) 449-867607-03-2024 History of Present illness Narrative* Brendon Baron, DO - 12/28/2023 10:30 AM EDT Kenneth Buckner is a 83 y.o. male Chief Complaint Follow-up 83-year-old gentleman here for follow-up and had 1 emergency room visit for jaw/chest discomfort following a 3 mile bike ride. He was seen at [place] [facility], details of the ER note, ECGs and labs are reviewed Since that time, he has had no further events, he is even ridden his bike 3 miles and walked 1 milewithout any events. He has a history of ASHD with three-vessel PCI's in [place], last catheterization performed by myself, from 06/16 [...] Rfl: Assessment/Plan 1. Coronary artery disease involving tangirnaq coronary artery of tangirnaq heart without angina pectoris 2. Bradycardia 3. S/P PTCA (percutaneous transluminal coronary angioplasty) 4. H/O non-ST elevation myocardial infarction (NSTEMI) 5. Paroxysmal atrial fibrillation (Multi) 6. High risk medication use 7. Hypertension, benign 8. Mixed hyperlipidemia 9. BMI 28.0-28.9,adult 10. Former smoker Scribe Attestation By signing my name below, Cass Seay LPN, Scribe attest that this documentation has been prepared under the direction and in the presence of Cassandra Baron DO. Provider Attestation - Scribe documentation All medical record entries made by the Scribe were at my direction and personally dictated by me. Waldo reviewed the chart and agree that the record accurately reflects my personal performance of the history, physical exam, discussion and plan. documented in this encounterB[facility] Work Phone: 1(235) 202-302207-03-2024 Instructions* Patient Instructions* Cass Rogers LPN - [...] through Care Everywhere. * Heart Healthy Diet (Syriac) documented in this encounterB[facility] Work Phone: 1(853) 405-968604-22-2024 Hospital Discharge instructions Follow Up Care 10/17/2023 15:55:07 With:MIHAELA MORALES, Bethel Burgess, URL Address: [facility] [address] , [place] [address]- [phone] When: Unknown [facility] 04-22-2024 Evaluation note* Author [facility] Authored October 17, 2023 2:5 5pm 83-year-old [...] colonic biopsies to assess for microscopic colitis [facility] Work Phone: 1([phone]) 654-874802-08-2024 Evaluation note* Encounter Date Diagnosis Assessment Notes [...] are maintaining regular scheduled appts with their land economist.TT Jul, Primary hypertension (ICD-10 - I10) This [...] TV, exercise and eating prior to HS [employer] Other 01-29-2024 History of Present illness Narrative* Brendon Baron, DO - 07/25/2023 1:00 PM EST Subjective Valentín Buckner is a 82 y.o. male Chief Complaint Annual Exam 82-year-old gentleman returns for follow-up and is doing well he has no anginal complaints, heart failure or recurrent hospitalizations. He status post non-ST elevation [place] May 2021, with a history of ASHD and prior three-vessel PCIin [place]. 1 of those events was for an inferior [place] with revascularization of the RCA. Patient is [...] my name below, Janie Seay LPN , Elizabeth attest that this documentation has been prepared under the direction and in the presence of Cassandra Baron DO. Assessment/Plan 1. Bradycardia 2. H/O non-ST elevation myocardial infarction (NSTEMI) 3. Paroxysmal atrial fibrillation (CMS/HCC) 4. 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 Tylenol as needed Apr, Strain of right rotator cuff capsule, initial encounter (ICD-10 - S46.011A) Ice, heat and ROM exercises. Tylenol, Lidocaine and Voltaren Gel. Call if pain increases. [employer] Other 11-08-2023 Evaluation note* Encounter Date Diagnosis [...] are maintaining regular scheduled appts with their land economist. Apr, Primary hypertension (ICD-10 - I10) This [...] minutes, 3-5 times weekly. Apr, Other Normal [employer] Other 10-26-2023 [facility]FirGood [facility] Evaluation note* [facility] Authored February 02, 2024 11: 43am [...] colonic biopsies to assess for microscopic colitis [facility] Work Phone: 1([phone]) 471-920910-01-2023 Evaluation note* Author [facility] Authored October 29, 2024 11:22a m 84-year-old man with SIBO ca me today for follow up Colonoscopy in 03/2023 was normal. However colonic biopsies were not done. Flexible sigmoidoscopy on 10/26/2023 showed hyperplastic polyps and internal hemorrhoids, random biopsies were negative for microscopic colitis. Duodenal biopsies in 03/2023 was negative for celiac. Labs including TSH, ESR, CRP, fecal calprotectin HIV ab, fecal elastase and stool infectious workup were unremarkable Hydrogen breath test on 03/29/24 was positive. Symptoms improved significantly after patient completed rifaximin course however he continues to have 3-4 formed bowel movements a day. - Will prescribe another course of rifaximin 550 mg 3 times daily for 14 days. [facility] Work Phone: 1([phone]) 524-654809-29-2023 Evaluation note* Encounter Date Diagnosis Assessment Notes Treatment Notes Treatment Clinical Notes Feb, Primary hypertension (ICD-10 - I10) [employer] Other 09-05-2023 Evaluation note* Encounter Date Diagnosis [...] procedure explained to patient; patient verbalizes understanding. [employer] Other 08-08-2023 Evaluation note* Encounter Date Diagnosis [...] are maintaining regular scheduled appts with their land economist. No obvious bleeding complications Jan, Primary hypertension [...] labs - GI referral later this month [employer] Other 05-09-2023 Evaluation note* Encounter Date Diagnosis [...] are maintaining regular scheduled appts with their land economist. October, Primary hypertension (ICD-10 - I10) This [...] Recently decreased to 100mg qod. F/U Cardiology [employer] Other 05-05-2023 Evaluation note* Encounter Date Diagnosis Assessment Notes Treatment Notes Treatment Clinical Notes October, Paroxysmal atrial fibrillation (ICD-10 - I48.0) [employer] Other 05-02-2023 Evaluation note* Encounter Date Diagnosis [...] are maintaining regular scheduled appts with their land economist. 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 [employer] Other 04-07-2023 Evaluation note* Encounter Date Diagnosis [...] are maintaining regular scheduled appts with their land economist. Sep, Iron deficiency anem ia due to [...] Diet and exercise with continued statin therapy. [employer] Other 03-09-2023 Evaluation note* Encounter Date Diagnosis Assessment Notes Treatment Notes Treatment Clinical Notes Aug, Salpingitis of both eustachian tubes (ICD-10 - H68.003) Flonase bid x 5 days, than qd. Valsalva multiple times No improvement, may require referral to ENT Aug, Fecal urgency (ICD-10 - R15.2) Diet instructions. Restart Metamucil [employer] Other 02-22-2023 Evaluation note* Encounter Date Diagnosis Assessment Notes Treatment Notes Treatment Clinical Notes Jul, Paroxysmal atrial fibrillation (ICD-10 - I48.0) This patient is in NSR. This patient is anticoagulated to prevent thromboembolic events. They are maintaining regular scheduled appts with their land economist. Jul, ASHD (arteriosclerot ic heart disease) (ICD-10 [...] (ICD-10 - K58.0) Diet instructions, add Metamucl [employer] Other 11-17-2022 NoteCONSULTATION CONSULTATION DATE: 05/13/2022 This [...] patient is in agreement to this. [facility] [id number] NoteCONSULTATION CONSULTATION DATE: 03/25/2022 HISTORY OF PRESENT [...] followed up in the clinic post procedure.[facility] HospitalByypdqib53-37-1963 NoteCONSULTATION CONSULTATION DATE: 02/09/2022 CHIEF COMPLAINT: Low [...] like to proceed. CC: Irving Canela D.O.[facility] HospitalOgnxmhqb11-10-1441 NoteCONSULTATION CONSULTATION DATE: 01/19/2022 CHIEF COMPLAINT: Chronic [...] CC: Brendon Ceja M.D. Irving Canela D.O.[facility] HospitalUatcxsmt92-51-5413 NotePROCEDURE: XR HIP RT 2 3V W [...] authenticated by: LYNDA BYNUM Date: 2021-12-30 11:33[facility] HospitalEvaluation + Plan note No data available for this section [facility] evaluation noteNo assessment information available [facility] [employer] Work Phone: Evaluation noteNo InformationNort [employer] Other Evaluation note* Diagnosis Onset Date Resolution Status Coronary artery disease acut e Dizziness acute Dyspnea acute Essential hypertension acute History of heart artery stent acute Hyperlipidemia acute Pre-syncope acute [facility] [employer] Work Phone: Evaluation note* Diagnosis Onset Date Resolution Status Change in bowel function acu te [facility] [employer] Work Phone: Evaluation note* Diagnosis Bradycardia Other specified cardiac dysrhythmias H/O non-ST elevation myocardial infarction (NSTEMI) Paroxysmal atrial fibrillation (CMS/HCC) Atrial fibrillation S/P PTCA (percutaneous transluminal coronary angioplasty) Postsurgical percutaneous transluminal coronary angioplasty status documented in this encounter [facility] Work Phone: Evaluation note* Diagnosis Onset Date Resolution Status ASHD (arteriosclerotic heart disease) acute Essential hypertension acute Gastroesophageal reflux dise ase with esophagitis without hemorrhage acute Iron deficiency anemia due to chronic blood loss acute Paroxysmal atrial fibrillation acute [facility] Work Phone: Evaluation note* Diagnosis Onset Date [...] chronic blood loss acute Loose stools acute [facility] Work Phone: Evaluation note* Diagnosis Diarrhea, unspecified type- Primary [facility] Diagnosis Seborrheic keratosis- Primary Lentigines History of SCC (squamous cell carcinoma) of skin Personal history of other malignant neoplasm of skin History of malignant melanoma of skin Personal history of malignant melanoma of skin Actinic keratosis Neoplasm of unspecified behavior of bone, soft tissue, and skin [facility]* Diagnosis Coronary artery disease involving tangirnaq coronary artery of tangirnaq heart without angina pectoris Bradycardia Other specified [...] pain, unspecified type documented in this encounter [facility] Work Phone: Evaluation note* Diagnosis Chest pain, unspecified type documented [facility] [facility] / [facility] Work Phone: Evaluation note* Diagnosis Drug-induced [...] HealthcareEvaluation note* Diagnosis Coronary artery disease involving tangirnaq coronary artery of tangirnaq heart without angina pectoris Bradycardia Other specified cardiac dysrhythmias H/O non-ST elevation myocardial infarction (NSTEMI) S/P PTCA (percutaneous transluminal coronary angioplasty) Postsurgical percutaneous transluminal coronary angioplasty status High risk medication use Paroxysmal atrial fibrillation (Multi) Atrial fibrillation Mixed hyperlipidemia Former smoker Personal history of tobacco use, presenting hazards to health BMI 29.0-29.9,adult documented in this encounter [facility] Work Phone: Evaluation note* Diagnosis Mohs defect of neck- Primary documented in this encounter [facility]* Diagnosis Seborrheic keratosis- Primary Lentigines Actinic keratosis History of malignant melanoma of skin Personal history of malignant melanoma of skin documented in this encounter [facility]* Diagnosis Mohs defect of neck- Primary documented in this encounter [facility]* Diagnosis Seborrheic keratosis- Primary Lentigines History of malignant melanoma of skin Personal history of malignant melanoma of skin History of basal cell carcinoma Personal history of other malignant neoplasm of skin History of SCC (squamous cell carcinoma) of skin Personal history of other malignant neoplasm of skin Actinic keratosis Inflammatory papule documented in this encounter [facility]History and physical note Author Karol Sage [facility] October 28, 2022 11:21pm Note Date/Time October 28, 2022 11:01p [place] [facility] [address] [place] [address] Hospitalist H&P Signed Patient: Valentín Buckner MR#: [id number] : 1940 Acct:[id number] Age/Sex: 82 / M Adm Date: 3 Loc: Room: [address] [place] [address] Type: ADM INOo Attending Dr: Karol Sage [...] % (Auto) 24.4 % (.) 10/28/22 21:10 [place] % (Auto) 11.8 % (.) 10/28/22 21:10 Eos % (Auto) 0.9 % (.) 10/28/22 21:10 Baso % (Auto) 0.4 % (.) 10/28/22 21:10 Nucleat RBC Rel Count 0.0 /100 WBC (0-0.5) 10/28/22 21:10 Neut # (Auto) 5.6 x10E3/uL (1.8-7.7) 10/28/22 21:10 Lymph # (Auto) 2.2 x10E3/uL (1.00-4.8) 10/28/22 21:10 [place] # (Auto) 1.0 x10E3/uL (0.0-0.8) H 10/28/22 [...] MD Milly Documented By: Karol Sage MD 10/28/22 5365 Signed By: <Electronically signed by Karol Sage MD> 10/28/221 <Electronically signed by DO NANDINI Pena> 10/28/22 2319 [facility] Work Phone: History general Narrative [...] PCI/STENT LAD 2015 Hospitalization History SEE [facility] [employer] Other History general Narrative - Reported* Type [...] w/ bx 03/2023 Hospitalization History [facility] [employer] Other History of Present illness Narrative* The [...] medication regimen. He denies medication side effects. -[facility] 250 DO Work Phone: History of Present [...] medication regimen. He denies medication side effects. [facility] 600 DO Work Phone: History of Present illness Narrative* Patient returns in follow-up of problems as noted. This first time I am seeing him. In the past he was under the care of Dr. Baron and Florence Aden for coronary disease with intervention. Recently he is having problems with paroxysmal atrial fibrillation and bradycardia. Ultimately he was switchedto amiodarone with spiritism of sinus rhythm, today, and a better [...] in several months and make additional recommendations. [facility] 250 DO Work Phone: History of Present illness Narrative* Patient returns in follow-up of problems as noted. This first time I am seeing him. In the past he was under the care of Dr. Baron and Florence Aden for coronary disease with intervention. Recently he is having problems with paroxysmal atrial fibrillation and bradycardia. Ultimately he was switchedto amiodarone with spiritism of sinus rhythm, today, and a better [...] in several months and make additional recommendations. -[facility] [employer] DO Work Phone: History of Present illness Narrative* The patient states he has been generally doing well since the last visit. Comorbid Illnesses: hypertension and hyperlipidemia. * Symptoms: denies chest pain at rest, denies exertional chest pain, denies dyspnea, stable fatigue, denies exercise intolerance, denies palpitations, denies edema, resolved dizziness and denies orthostatic dizziness. * Associated symptoms: no syncope. * Disease Monitoring: [facility] [employer] [facility] Work Phone: History of Present illness [...] medication regimen. He denies medication side effects. [facility] [employer] Work Phone: History of Present illness Narrative* [...] medication regimen. He denies medication side effects. -[facility] 250 DO Work Phone: Hospital Discharge instructions [...] if you have any problems. -Office number [phone] Work Phone: Hospital Discharge instructionsAmbulatory Orders* Breath test for SIBO Time Frame: 02/02/24, Location: None Selected [facility] Work Phone: Progress note No data available for this section [facility] reason for referral (narrative)* Reason Referral for Fe defi ciency anemia and GERD Diagnosis 1 Gastroesophageal ref lux disease with esophagitis without hemorrhage (K21.00) Referral Organization [facility] Rola Garcia C linconrad Referring Provider First Name Irving Referring Provider Last Name Rola Referring Provider Specialty Internal Me dicine Referred Organization [facility] Gastroenterolo gy Referred Provider Michael Bahena Referred Address [address] [place] [phone] Referred Provider Specialty Gastroentero logy Referral Priority Routine [place] [employer] Other Summary Purpose Family History Unknown Family [...] Z80.3) Status:Active Family history of PTCA: Sist er(7.49, Z82.49) Status:Active Family history of dementia: Sister(V17.2, [...] February 1:38pm Hospital Course Note MR#: [id number] [facility] Pt. Name: Valentín Buckner Admitted: 05/09/2018 Discharged: 05/10/2018 Date of : 1940 Physician: Anna Hoyt MD [facility] PHYSICIAN: Dr. Irving Canela.PRINCIPAL PROBLEM:1. Chest pain, rule out acute coronary syndrome.2. History of CAD status post stents.3. Hypertension, well controlled.4. Unspecified dyslipidemia.CONSULTANTS: Cardiology.HOSPITAL COURSE: This is a 77-year-old male, who was seen at [facility] for concern for unstable angina. The patient [...] typical chest pain symptoms aswell. Workup at [facility] revealed an EKG that was normal andnormal troponin. However, given the patient's cardiac history, they feltthat i (more content not included)... Chief Complaint * VALENTÍN BUCKNER is being seen for follow-up of a hospitalization for. * Patient is a 80-year-old gentleman returns from recent small non-ST elevation TX associated with small branch disease of the [...] Ceja MD for review.Amiodarone Order sent to [facility] for testing due in October VALENTÍN BUCKNER [...] has had a previous small non-ST elevation TX in May 2021 associated with a small [...] in 6 months Amiodarone Order sent to [facility] for testing due in FebruaryAmiodarone Order sent to [facility] for testing due in July 19Amiodarone Order sent to [facility] for testing due in September* Hospital f/u: 'doing ok' * VALENTÍN BUCKNER is being seen for follow-up of a hospitalization for dizziness. * Patient presents to the office ambulatory steady gait, is accompanied by his . Last evaluated in clinic Dr. Baron June 2022. At that time dose of amiodarone reduced 100 mg daily. * October 2022 presented to [facility] due to dizziness. Seen in consultation by [...] day of admit he was at the [employer], when he raised up he felt [...] atrial fibrillation. We will proceed with 14-day [employer]. At this time amiodarone has been reduced [...] regarding bradycardia and he completed a 14-day [employer]. Results reviewed including no evidence of high-grade [...] 2024 1:46pm ASHD (arteriosclerotic heart disease) Pablo venturaastoria 2024 11:23am Essential hypertension July 19 11:23am [...] tendon heel pain September 19, 2024 8:54am Chief Complaint Admit Date i48.0 z79.899 August 28, 2024 3:07 pm i48.0 z79.899 August 28, 2024 7:28 pm right tendon heel pain September 19, 2024 8:54am Diarrhea October 29, 2024 10:23a m Reason for Visit Admit Date ASHD (arteriosclerotic heart disease) [facility] 2024 8:54am Paroxysmal atrial fibrillation August 8:54am Strain of gastrocnemius tendon of right lower extremity September 19, 2024 8:54am GERD (gastroesophageal reflux disease) M 2024 10:23am IBS (irritable bowel syndrome) October 29, 2024 10:23am Small intestinal bacterial overgrowth (S IBO) October 29, 2024 10:23am Chief Complaint Admit Date i48.0 z79.899 August 28, 2024 3:07 pm i48.0 z79.899 August 28, 2024 7:28 pm right tendon heel pain September 19, 2024 8:54am Diarrhea October 29, 2024 10:23a m Wellness November 16, 2024 11:20 am Reason for Visit Admit Date ASHD (arteriosclerotic heart disease) [facility] 2024 8:54am Paroxysmal atrial fibrillation August 8:54am Strain of gastrocnemius tendon of right lower extremity September 19, 2024 8:54am GERD (gastroesophageal reflux disease) M ay 2024 10:23am IBS (irritable bowel syndrome) October 29, 2024 10:23am Small intestinal bacterial overgrowth (S IBO) October 29, 2024 10:23am ASHD (arteriosclerotic heart disease) Pa y 2024 11:20am Essential hypertension November 16, 2024 11 :20am Gastroesophageal reflux dise ase with esophagitis without hemorrhage November 16, 2024 11:20am Iron deficiency anemia due to chronic bl ood loss November 16, 2024 11:20am Irritable bowel syndrome with diarrhea M ay 23rd, 2025 11:20am Paroxysmal atrial fibrillation November 16, 2024 11:20am Primary insomnia November 16, 2024 11:20 am Medicare annual wellness visit, juanpabloe nt November 16, 2024 11:20am Chief Complaint Admit Date right tendon heel pain September 19, 2024 8:54am Diarrhea October 29, 2024 10:23a m Wellness November 16, 2024 11:20 am cough November 30, 2024 1:45p m Reason for Visit Admit Date ASHD (arteriosclerotic heart disease) [facility] 2024 8:54am Paroxysmal atrial fibrillation August 8:54am Strain of gastrocnemius tendon of right lower extremity September 19, 2024 8:54am GERD (gastroesophageal reflux disease) M ay 2024 10:23am Small intestinal bacterial overgrowth (S IBO) October 29, 2024 10:23am IBS (irritable bowel syndrome) October 29, 2024 10:23am ASHD (arteriosclerotic heart disease) Ma y 2024 11:20am Essential hypertension November 16, 2024 11 :20am Gastroesophageal reflux dise ase with esophagitis without hemorrhage November 16, 2024 11:20am Insomnia November 16, 2024 11:20 am Iron deficiency anemia due to chronic bl ood loss November 16, 2024 11:20am Lung nodule November 16, 2024 11:20 am Paroxysmal atrial fibrillation November 16, 2024 11:20am Primary insomnia November 16, 2024 11:20 am Screening PSA (prostate specific antigen ) November 16, 2024 11:20am Medicare annual wellness visit, shefali nt November 16, 2024 11:20am Reason for Referral Specialty Diagnoses / Procedures Referred By Sanam riley Referred To Contact Cardiology Diagnoses Chest pain, unspecified type Procedures Nuclear Stress Test CHG MYOCARDIAL SPECT MULTIPLE STUDIES Brendon Baron DO [address], [address] [address] Referral ID Status Reason Start Date Expiration Date Visits Requested Visits Authorized [id number] Pending Review Perform Procedure 12/28/2023 12/27/2024 5 5 Specialty Diagnoses / Procedures Referred By Sanam riley Referred To Contact Diagnoses Paroxysmal atrial fibrillation (Multi) Procedures ECG 12 Lead Brendon Baron DO [address], [place] [address] [place], [place] [id number] Referral ID Status Reason Start Date Expiration Date V isits Requested Visits Authorized [id number] Authorized 12/28/2023 12/27/2024 1 1 Specialty Diagnoses / Procedures Referred By Contac t Referred To Contact Cardiology Diagnoses Coronary artery disease involving tangirnaq coronary artery of tangirnaq heart without angina pectoris Procedures Follow Up In Cardiology Brendon Baron, DO [address] [facility] 2, [place] [address] [place], [place] [phone] Brendon Baron, DO [address] [facility] 2, [place] [phone] Referral ID Status Reason Start Date Expiration Date V isits Requested Visits Authorized [id number] Authorized 12/28/2023 12/27/2024 1 1 Specialty Diagnoses / Procedures Referred By Contac t Referred To Contact Diagnoses Bradycardia Procedures ECG 12 Lead Brendon Baron, [address] [facility] [address], [place] [phone] Referral ID Status Reason Start Date Expiration Date V isits Requested Visits Authorized [id number] Authorized 07/25/2023 07/24/2024 1 1 Specialty Diagnoses / Procedures Referred By Contac t Referred To Contact Cardiology Diagnoses Bradycardia H/O non-ST elevation myocardial infarction (NSTEMI) S/P PTCA (percutaneous transluminal coronary angioplasty) Procedures Follow Up In Cardiology Brendon Baron, [address] [facility] 2, [place] [phone] Brendon Baron, DO [address] [facility] 2, [place] [phone] Referral ID Status Reason Start Date Expiration Date V isits Requested Visits Authorized [id number] Authorized 07/25/2023 07/24/2024 1 1 Additional Source Comments (unrecognized sect ion and content) No Status Records FoundNo Status Records FoundNo Status Records FoundNo Status Records FoundNo Status Records FoundNo Status Records FoundNo Status Records FoundNo Status Records FoundNo Status Records Found INFORMATION SOURCE (unrecogn ized section and content) DATE CREATED AUTHOR 06/18/2018 [facility] DATE CREATED AUTHOR AUTHOR'S ORGANIZ ATION 10/24/2022 [facility] DATE CREATED AUTHOR AUTHOR'S ORGANIZ ATION 03/31/2023 [facility] DATE CREATED AUTHOR AUTHOR'S ORGANIZ ATION 04/01/2023 [employer] DATE CREATED AUTHOR AUTHOR'S ORGANIZ ATION 01/09/[address] [facility] DATE CREATED AUTHOR AUTHOR'S ORGANIZ ATION 02/15/2024 Ort[facility] DATE CREATED AUTHOR AUTHOR'S ORGANIZ ATION 08/31/2024 [facility] DATE CREATED AUTHOR AUTHOR'S ORGANIZ ATION 09/02/[address] [facility] DATE CREATED AUTHOR AUTHOR'S ORGANIZ ATION 11/30/2024 [facility] EPIC Reason for Visit (unrecogniz ed section and content) Reason Comments Annual Exam Reason Comments Breath Hydrogen Test SIBO Hydrogen Breat h Test Results. Reason Comments Skin Check Reason Comments Follow-up [facility] 12/15 Specialty Diagnoses / Procedures Referred By Sanam riley Referred To Contact Cardiology Diagnoses Chest pain, unspecified type Procedures Nuclear Stress Test CHG MYOCARDIAL SPECT MULTIPLE STUDIES Brendon Baron, [address] [facility] 2, [address] [place] [address] Referral ID Status Reason Start Date Expiration Date Visits Requested Visits Authorized [id number] Pending Review Perform Procedure 12/28/2023 12/27/2024 5 5 Reason Comments Mohs Micrographic Surgery Reason Comments Mohs Reconstruction New patient mohs nec k Specialty Diagnoses / Procedures Referred By Sanam riley Referred To Contact Otolaryngology Diagnoses Basal cell carcinoma of skin of scalp and neck Procedures [place] OFFICE/OUTPATIENT NEW HIGH MDM 60 MINUTES Pedro Wagner MD [address] [place] [address] Phone: tel: fax: Irving Fonseca, DO [address] [place] [address] Phone: tel: fax: Referral ID Status Reason Start Date Expiration Date V isits Requested Visits Authorized [id number] Closed Specialty Services Required 07/19/2024 01/15/2025 1 1 Reason Comments Annual Exam Specialty Diagnoses / Procedures Referred By Contac t Referred To Contact Cardiology Diagnoses Bradycardia H/O non-ST elevation myocardial infarction (NSTEMI) S/P PTCA (percutaneous transluminal coronary angioplasty) Procedures Follow Up In Cardiology Brendon Baron, DO [address], [address] [place] [address] Phone: tel: fax: Brendon Baron, DO [address], [address] [place] [address] Phone: tel: fax: Referral ID Status Reason Start Date Expiration Date V isits Requested Visits Authorized [id number] Authorized 07/25/2023 07/24/2024 1 1 Reason Comments [...] August 29, 2023 End: August 29, 2023 W Murali Baron DO Attending Provider Active S tart: [...] Active Markell Hines MD Attending Provider Active [employer] Technician Relationship Specialty Start Date End Date Irving Canela DO PCP - General 06/27/99 Team Status: Inactive Member Role Status Cindy Canela DO Primary Care Provide r, Attending Provider Active Start: September 23, 2023 End: September 23, 2023 Team Status: Active Member Role Status Dates Irving Cnaela DO Primary Care Provide r, Attending Provider [...] March 19, 2024 End: March 19, 2024 [employer] Laboratory Technician Relationship Specialty Start Date End Date Irving Canela DO [address] [place] [address] PCP - General Internal Medicine 03/29/24 Team Status: Active Member Role Status Dates NON STAFF Primary Care Provider Active Start: April 11, 2024 Miriam Juarez MD Attending Provider Active St art: April 11, 2024 [employer] Laboratory Technician Relationship Specialty Start Date End Date Irving Canela DO PCP - General 06/27/99 [employer] Laboratory Technician Relationship Specialty Start Date End Date Irving Canela DO [address] [place] [address] PCP - General Internal Medicine 12/28/23 [employer] Laboratory Technician Relationship Specialty Start Date End Date Irving Canela DO [address] [place] [address] PCP - General Internal Medicine 12/28/23 [employer] Laboratory Technician Relationship Specialty Start Date End Date Irving Canela DO [address] [place] [address] PCP - General Internal Medicine 12/28/23 [employer] Laboratory Technician Relationship Specialty Start Date End Date Irving Canela DO [address] [place] [address] PCP - General Internal Medicine 12/28/23 [employer] Laboratory Technician Relationship Specialty Start Date End Date Irving Canela MD [address] [place] [address] PCP - General Internal Medicine 07/23/24 [employer] Laboratory Technician Relationship Specialty Start Date End Date Irving Canela MD [address] [place] [address] PCP - General Internal Medicine 07/23/24 [employer] Laboratory Technician Relationship Specialty Start Date End Date Irving Canela DO [address] [place] [address] PCP - General Internal Medicine 12/28/23 [employer] Laboratory Technician Relationship Specialty Start Date End Date Irving Canela MD [address] [place] [address] PCP - General Internal Medicine 07/23/24 Pedro Wagner MD [address] [place] [address] Referring Physician Dermatology 08/01/24 Irving Fonseca DO [address] [place] [address] Otolaryngology 08/01/24 [employer] Laboratory Technician Relationship Specialty Start Date End Date Irving Canela MD [address] [place] [address] PCP - General Internal Medicine 07/23/24 Pedro Wagner MD [address] [place] [address] Referring Physician Dermatology 08/01/24 Irving Fonseca DO [address] [place] [address] Otolaryngology 08/01/24 [employer] Laboratory Technician Relationship Specialty Start Date End Date Irving Canela MD [address] [place] [phone] PCP - General Internal Medicine 07/23/24 Pedro Wagner MD [address] [place] [address] Referring Physician Dermatology 08/01/24 Irving Fonseca DO [address] [place] [address] Otolaryngology 08/01/24 [employer] Laboratory Technician Relationship Specialty Start Date End Date Irving Canela MD [address] [place] [facility] [place] [address] PCP - General Internal Medicine 07/23/24 Pedro Wagner MD [address] [place] [address] Referring Physician Dermatology 08/01/24 Irving Fonseca, [address] [facility] [place] [address] Otolaryngology 08/01/24 Team Status: Active Member Role [...] Active Start: August 28, 2024 Alfred Baron DO Other Provider Active Start : August 28, 2024 Monty Cruz MD Attending Provider Active Start: August 28, 2024 Team Status: Inactive Member Role Status Dates Irving Canela DO Primary Care Provide r, Attending Provider Active Start: September 19, 2024 End: September 19, 2024 Team Status: Active Member Role Status Dates Irving Canela DO Primary Care Provider Active Start: September 25, 2024 Miriam Juarez MD Attending Provider Active St art: September 25, 2024 Team Status: Active Member Role Status Dates Irving Canela DO Primary Care Provider Active Start: October 01, 2024 Miriam Juarez MD Attending Provider Active St art: October 01, 2024 Team Status: Inactive Member Role Status Dates Irving Canela DO Primary Care Provider Active Start: October 29, 2024 End: October 29, 2024 Colleen Ochoa MD Attending Provider Active Start: October 29, 2024 End: October 29, 2024 Team Status: Inactive Member Role Status Dates Irving Canela DO Primary Care Provide r, Attending Provider Active Start: November 16, 2024 End: November 16, 2024 [employer] Laboratory Technician Relationship Specialty Start Date End Date Irving Canela DO PCP - General Internal Medicine 07/23/24 Pedro Wagner MD [address] [place] [address] Referring Physician Dermatology 08/01/24 Irving Fonseca DO [address] [place] [address] Otolaryngology 08/01/24 [employer] Laboratory Technician Relationship Specialty Start Date End Date Irving Canela DO PCP - General Internal Medicine 07/23/24 Pedro Wagner MD [address] [place] [address] Referring Physician Dermatology 08/01/24 Irving Fonseca DO [address] [place] [address] Otolaryngology 08/01/24 Team Status: Inactive Member Role Status Dates Irving Rola , DO Primary Care Provide r, Attending Provider Active Start: November 30, 2024 End: November 30, 2024 Goals (unrecognized section and content) Goals [...] or prosecute any alcohol or drug abuse patient.[facility] FOR RECORDS PERTAINING TO PATIENTS WHO [...] BE BASED ON THE PRIMARY CLINICAL RECORDS. [facility]. provides no warranty or guarantee of the accuracy or completeness of information in this document.
--- NOTE | 2025-03-01 15:03 | XR_ITS ---
The [address] [address] Patient Name: ADELE BUCKNER MRN: [id number] date: 1940 Sex: M Assigned Patient Location: [facility] Current Patient Location: [facility] Accession/Order Number: [id number] Exam Date: 03/01/2025 14:55 Report Date: 03/01/2025 15:13 At the request of: DANIELA CANELA DO Procedure: XR hip RT 2V w/ pelvis Right hip 2 views. Reason for exam: Acute right hip pain for 2 weeks. No known injury. COMPARISON: Right hip series 12/29/2021. FINDINGS: Surgical clips are noted. Mild degenerative changes of the hips without acute bony process. Additional degenerative changes seen involving the lower lumbar spine, SI joints and pubic symphysis. XR/XR hip RT 2V w/ pelvis IMPRESSION: Mild degenerative changes involving the hips without acute bony process. Impression dictated by: Alex Nixon Jr., D.O. 03/01/2025 3:13 PM Dictation Location: [place] [address] Electronically authenticated by: [id number] Date: 03/01/2025 15:13
== END 2025-03-01 14:42 | disposition home or self-care (01) ==
PROVIDERS: PCP Internal Medicine; Visit Provider Internal Medicine
DX: M25.551 Pain in right hip (principal)
CPT/HCPCS: 73502

== ENCOUNTER 2025-04-03 13:49 | Outpatient (RCR) | payer MEDICARE, OTHER, SELFPAY | END 2025-05-03 08:38 | disposition home or self-care (01) | LOC: PT 13:49 | PROVIDERS: PCP Internal Medicine; Visit Provider Internal Medicine | DX: M54.9 Dorsalgia, unspecified (principal); M19.90 Unspecified osteoarthritis, unspecified site; M25.551 Pain in right hip | CPT/HCPCS: 97010; 97110; 97112; 97140; 97162; G0283 ==

== ENCOUNTER 2025-04-18 13:59 | Outpatient (OUT) | payer MEDICARE, OTHER, SELFPAY ==
--- OUTSIDE RECORDS SUMMARY | 2025-04-18 14:09 | XMS_ITS | Clinical Summary ---
Author Organization [facility] Address [address] 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 Take one tablet by mouth every Mon, Wed, Fri 01/05/2022ctive cholecalciferol (Vitamin D-3) 50 mcg (2,000 unit) capsule Take 1 capsule (50 mcg) by mouth once daily.Active loratadine 10 mg capsule Take 1 tablet by mouth once daily.Active pantoprazole (ProtoNix) 40 mg EC tablet Take 1 tablet (40 mg) by mouth once daily.Active zinc gluconate 50 mg tablet Take 1 tablet (50 mg) by mouth once daily.Active isosorbide mononitrate ER (Imdur) 30 mg 24 hr tablet Indications:H/O non-ST elevation myocardial infarction (NSTEMI),Paroxysmal atrial fibrillation (Multi),S/P PTCA (percutaneous transluminal coronary angioplasty)Take 1 tablet (30 mg) by mouth once daily. 90 tablet ctive zolpidem (Ambien) 5 mg tablet 1 tablet (5 mg) once daily at bedtime.05/17/2024ctive traZODone (Desyrel) 50 mg tablet Take 1 tablet (50 mg) by mouth once daily at bedtime.11/24/2023ctive amiodarone (Pacerone) 200 mg tablet Indications:Paroxysmal atrial fibrillation (Multi)Take 0.5 tablets (100 mg) by mouth 3 times a week. 40 tablet 5Active atorvastatin (Lipitor) 40 mg tablet Indications:Mixed hyperlipidemiaTAKE 1 TABLET BY MOUTH ONCE DAILY AT BEDTIME. 90 tablet 5Active amLODIPine (Norvasc) 2.5 mg tablet Indications:Essential (primary) hypertensionTAKE 1 TABLET BY MOUTH EVERY DAY DIRECTED 90 tablet 3065Active apixaban (Eliquis) 5 mg tablet Indications:Paroxysmal atrial fibrillation (Multi)Take 1 tablet (5 mg) by mouth 2 times a day. 180 tablet 308508/6Active Active Problems ProblemNoted DateDiagnosed DateHigh risk medication use12/28/2023MI 29.0-29.9,adult12/28/2023Former ixbpgi6312/28/20238742Uwnbykkbyfq74/29/2023AD (coronary artery disease)06/24/2023H/O non-ST elevation myocardial infarction (NSTEMI)06/24/2023Hypertension, ksivwg9006/24/2023Mixed lofoqepgndekur84/29/2023 Paroxysmal atrial hbhzpaxypuvx01/29/2023S/P PTCA (percutaneous transluminal coronary angioplasty)06/24/2023 Encounters DateTypeDepartmentCare RktqDmmmbgwefjh37/18/2025Refill [facility] [address] [address] Bita Stephens RN Paroxysmal atrial fibrillation (Multi)from Last 3 Months Immunizations ImmunizationAdministration DatesNext DueFlu vaccine (IIV4), preservative free *Check age/dose*04/15/2022Flu vaccine, trivalent, preservative free, HIGH-DOSE, age 65y+ (Fluzone)03/07/2019Influenza, trivalent, uugdxridwu98/31/2024, 03/07/2019Moderna SARS-CoV-2 Ibzgusizpew97/03/2022Pneumococcal polysaccharide vaccine, 23-valent, age 2 years and older (PNEUMOVAX 23)03/14/2017Zoster, live 11/12/2014 Family History Medical HistoryRelationNameCommentsColon cancerFatherHeart attackFatherLung cancerFatherBreast cancerSisterDementiaSisterPTCASisterRelationNameStatus CommentsFatherSister Social History Tobacco UseTypesPacks/DayYears UsedDateSmoking Tobacco: FormerCigarettes Smokeless Tobacco: Never Tobacco Cessation:Counseling Given: Not Answered Alcohol UseStandard Drinks/WeekCommentsYes0 (1 standard drink = 0.6 oz pure alcohol)occasionalSex and Gender InformationValueDate RecordedSex Assigned at BirthNot on fileLegal SsfRsxe59/26/2022 2:23 AM ESTGender IdentityNot on file Sexual OrientationNot on file Last Filed Vital Signs Vital SignReadingTime TakenCommentsBlood Kjcvsxmf142/6201 2:15 PM EST Elwxd772107/24/2024 2:15 PM ESTTemperature--Respiratory Rate--Oxygen Saturation-- Inhaled Oxygen Concentration--Hrndac69.8 kg (198 lb)07/24/2024 2:15 PM ESTHeight 175.3 cm (5' 9 )12/28/2023 10:27 AM EDTBody Mass Index29.24012/28/2023 10:27 AM EDT Plan of Treatment DateTypeDepartmentCare Team (Latest Contact Info)Wgihnqdpmgm23/03/2026 1:30 PM ESTOffice Visit [facility] [address] [facility] [address] [place] [address] Brendon Baron, [address]03 [facility] [address] [place] [address] Health MaintenanceDue DateLast DoneCommentsLipid Panel1941TSH Level 2Diabetes Zwyqgtyyf50/19/1960DTaP/Tdap/Td Vaccines (1 - Tdap)10/14/1963 Zoster Vaccines (2 of 3)RSV High Risk: (Elderly (60+) or Population) (1 - 1-dose 75+ series)2016Influenza Vaccine (#1) 51, 04/15/2022, 03/07/2019, Additional history existsCOVID-19 Vaccine (5 - 2025-26 season)511/08/2021, 04/17/2021, 08/14/2020, Additional history existsMedicare Annual Wellness Visit (AWV)11/17/2025 11/16/2024, 11/15/2023, 10/26/2022, Additional history existsPneumococcal AccslunXldrocpqy48/18/2017, 03/12/2016HIB VaccinesAged OutNo longer eligible based on patient's age to complete this topicHPV VaccinesAged OutNo longer eligible based on patient's age to complete this topicHepatitis A VaccinesAged OutNo longer eligible based on patient's age to complete this topicHepatitis B VaccinesAged OutNo longer eligible based on patient's age to complete this topic IPV VaccinesAged OutNo longer eligible based on patient's age to complete this topicMeningococcal VaccineAged OutNo longer eligible based on patient's age to complete this topicRotavirus VaccinesAged OutNo longer eligible based on patient's age to complete this topic Insurance * Guarantor: Robert Mccall TypeRelation to PatientDate of BirthPhone Billing AddressPersonal/ToffydYayx05/ [address] [address] Care Teams Team MemberRelationshipSpecialtyStart DateEnd Irving Cooley DO [address] [place] [address] PCP - GeneralInternal Medicine12/28/23
--- OUTSIDE RECORDS SUMMARY | 2025-04-18 14:09 | XMS_ITS | Clinical Summary ---
Author Organization [facility] Address [address] [place] [address] Care Team Providers Care Base Ply Hand Name Role Phone Yasir Irving Floyd DO Primary Care Provider [phone] Carlos Garzon MD Unavailable Unavailable Irving Fonseca DO Unavailable [phone] Allergies Active AllergyReactionsCriticalityNoted DateCommentsClopidogrelHives,Other,Rash Low08/27/2016 Other Reaction(s): Unknown Stjsnzyhqsih57/15/2023 Other Reaction(s): reaction Medications MedicationSigDispense QuantityRefillsLast FilledStart DateEnd DateStatus prasugrel (Effient) 10 MG tablet Active iron polysaccharides (Nu-Iron,Niferex) 150 MG capsule 09/09/2022ctive pantoprazole (ProtoNix) 40 MG EC tablet Active nitroglycerin (Nitrodur) 0.4 MG/HR patch Place 1 patch on the skin in the morning.Active nitroglycerin (Nitrostat) 0.4 MG SL tablet Active loratadine (Claritin) 10 MG tablet Take 10 mg by mouth Daily12/06/2022ctive Loratadine 10 MG capsule Active isosorbide mononitrate ER (Imdur) 30 MG 24 hr tablet Take 1 tablet by mouth DailyActive guaiFENesin-codeine (Robitussin-AC) 100-10 MG/5ML syrup Active atorvastatin (Lipitor) 40 MG tablet Take 40 mg by mouth at oertbfs0512/31/2022ctive atorvastatin (Lipitor) 10 MG tablet Take 1 tablet by mouth DailyActive aspirin 81 MG chewable tablet Active amitriptyline (Elavil) 10 MG tablet Take 1 tablet by mouth at bedtimeActive amiodarone (Pacerone) 200 MG tablet 10/15/2022ctive ALPRAZolam (Xanax) 0.25 MG tablet Active Hydrocortisone Acetate 1 % cream Indications:Drug-induced photosensitivityApply thin layer to affected areas, twice a day as needed for flares, 30 day supply 28.4 g 11002/14/2024ctive Apixaban (ELIQUIS PO) Take by mouthActive cephalexin (Keflex) 500 MG capsule Indications:Basal cell carcinoma of skin of scalp and neckTake 1 capsule, by mouth, bid, 10 days 20 capsule 07/19/2024tive traZODone (Desyrel) 50 MG tablet Take 50 mg by mouth at lltiayl2611/24/2023ctive zolpidem (Ambien) 5 MG tablet 5 mg at eroekkw6105/17/2024ctive amLODIPine (Norvasc) 2.5 MG tablet Take 2.5 mg by mouth Daily as ponutssu62/24/2025tive fluorouracil (Efudex) 5 % cream Indications:Actinic keratosisApply to directed areas on the scalp twice a day x 14 days. Dispense 30 day supply but only use for14 days. 40 g 03/05/2025tive Active Problems No known active problems Resolved Problems ProblemNoted DateDiagnosed DateResolved DateCarotid artery stenosis without cerebral vtkrgncjqa43hest painoronary phhiwjydrwqyvkkz78Diarrhea, bhkwvujnotk21 Difficulty nalfspa21Encounter for therapeutic drug level oltwfegbpx75EnthesopathyErectile dysfunction after radical xwjcdforskxja35Hx of ferry terminal agent use of blood yohfyhli86enign essential rklwlcbalijy33/26/2025 07/22/2024Long term (current) use of thvdokxmicxnnz92Malignant kvsqpyif66HyperlipidemiaNocturia07/22/2024 07/22/20247579Yzzkkfmtzwxrnt87/26/202501/26/2025Pain in joint involving ankle and footParesthesiaHistory of malignant neoplasm of vxzyttst23Personal history of prostate cancer Regular astigmatism, xtajnmjsa35Tinea Urge yocfhbxxiady66MI 28.0-28.9,adult Former srguyx89High risk medication use radycardiaAD (coronary artery disease) H/O non-ST elevation myocardial infarction (NSTEMI) Mixed elujujgvzsrfdk00Paroxysmal atrial fcqzrzkcemif84S/P PTCA (percutaneous transluminal coronary angioplasty)ute non-ST segment elevation myocardial iaeaacqrym28 Overview (07/22/2024): Jul 13, 2021 Entered By: KIKA HUANG Comment: Dr Baron- [facility] Encounters DateTypeDepartmentCare YtjaTtrvfxbefsf08/15/2025Results Follow-Up [facility] [place] [facility] [address] [place] [phone] Sonia Girard MD Dermatopathology exam03/05/2025 1:30 PM EDTOffice Visit [facility] [place] [facility] [address] [place] [phone] Sonia Girard MD Seborrheic keratosis (Primary Dx); Neoplasm of unspecified behavior of bone, soft tissue, and skin; Actinic keratosis; Lentigines; History of malignant melanoma of skin03/05/2025amboo flowsheet [facility] [address] [place] [address] Sonia Girard MD 03/05/2025Travelfrom Last 3 Months Immunizations ImmunizationAdministration DatesNext DueInfluenza, High Dose Seasonal, Preservative Free03/27/2022,03/14/2017Influenza, Seasonal, Quadrivalent, Kuofputrxb64/09/2023,04/15/2022Influenza, Dsfkufucvqk45/01/2021,03/27/2020, 02/25/2019,03/27/2018,04/27/2017,03/27/2016,04/03/2009,03/27/2008Influenza, injectable, quadrivalent, preservative free04/11/2018Influenza, trivalent, hzywpovoha69/31/2024,03/07/2019Moderna SARS-CoV-2 Xyxkybtxxim69/18/2022, 2Pneumococcal Polysaccharide ZKOD5605Pneumococcal, Unspecified 11/07/20070019QINJ-RNL-4 (COVID-19) vaccine, mRNA, spike protein, LNP, PF, 50 mcg/0.5 mL05/05/2023Tdap09/03/2019Zoster, Iuralitfjuy64/14/2019,06/24/2018, 06/07/2018Zoster, live11/12/2014 Family History Medical HistoryRelationNameCommentsMelanomaNeg Hx Social History Tobacco UseTypesPacks/DayYears UsedDateSmoking Tobacco: NeverPassive Smoke Exposure: NeverSmokeless Tobacco: Never Tobacco Cessation:Counseling Given: Not Answered Alcohol UseStandard Drinks/WeekCommentsYes0 (1 standard drink = 0.6 oz pure alcohol)Sex and Gender InformationValueDate RecordedSex Assigned at BirthNot on fileLegal SgeKpby4709/08/2022 6:53 PM EDTGender IdentityNot on fileSexual OrientationNot on file Last Filed Vital Signs Vital SignReadingTime TakenCommentsBlood Vjmvqlcs947/8801 2:07 PM EST Pulse--Temperature--Respiratory Rate--Oxygen Saturation--Inhaled Oxygen Concentration--Ptotuz16.8 kg (198 lb)08/29/2024 2:39 PM RQYKpcehn894.3 cm (5' 9 )08/29/2024 2:39 PM ESTBody Mass Index29.24008/29/2024 2:39 PM EST Plan of Treatment DateTypeDepartmentCare Team (Latest Contact Info)Eivibnweovu98/09/2025 2:30 PM ESTOffice Visit [facility] [address] [place] [phone] Sonia Girard MD [address] [place] [address] Health MaintenanceDue DateLast DoneCommentsPneumococcal Vaccine: 65+ Years (2 of 2 - PCV), 11/07/2007Influenza Vaccine (#1)2025 04/26/2024, 05/05/2023, 04/15/2022, Additional history exists Procedures Procedure NamePriorityDate/TimeAssociated DiagnosisCommentsCRYOTHERAPY SKIN OGPKHSFbbvdth17/09/2025 1:41 PM EDT Actinic keratosis SKIN / NAIL TMNIBLKhqvmkf04/09/2025 1:38 PM EDT Neoplasm of unspecified behavior of bone, soft tissue, and skin DERMATOPATHOLOGY TGMCTtulogm42/09/2025 12:00 AM EDT Neoplasm of unspecified behavior of bone, soft tissue, and skin from Last 3 Months Results * Cryotherapy, skin lesion (03/05/2025 1:41 PM EDT) Narrative Authorizing ProviderResult TypeResult StatusEmroosevelt Girard MDDERM PROCEDURE ORDERABLESFinal Result * Lesion biopsy (03/05/2025 1:38 PM EDT) Narrative Bebe Garay MA - 03/05/2025 1:38 PM EDT Type of biopsy: tangential Informed consent: discussed and consent obtained ?? Informed consent comment: ??The risks and benefits of the biopsy were discussed. Risks include but are not limited to bleeding, infection, scarring, pain, and nerve damage. An opportunity to ask questions prior to the procedure was permitted and all questions were answered. Patient was prepped and draped in usual sterile fashion: area cleansed with alcohol. Anesthesia: the lesion was anesthetized in a standard fashion ?? Anesthetic: ??1% lidocaine w/ epinephrine 1-100,000 buffered w/ 8.4% NaHCO3 Instrument used: DermaBlade ?? Hemostasis achieved with: electrodesiccation ?? Outcome: patient tolerated procedure well ?? Outcome comment: ??The specimen was placed in a prelabeled formalin container to be sent for pathology Post-procedure details: sterile dressing applied and wound care instructions given ?? Post-procedure details comment: ??Emphasized need to contact clinic for any signs of infection, uncontrollable bleeding, or complications. Dressing type: bandage ?? Additional details: ??Photo taken yes Amount of lidocaine used: 0.5 cc Authorizing ProviderResult TypeResult StatusEmily A Petitti MDDERM PROCEDURE ORDERABLESFinal Result * Dermatopathology exam (03/05/2025 12:00 AM EDT)ComponentValueRef RangeTest MethodAnalysis TimePerformed AtPathologist SignatureSPECIMEN TYPE SPECIMEN: MID PARIETAL SCALP WOJ[facility]ECH CJKIMQSQTFWPEU21 Code D23.4AURORA DIAGNOSTICSPROTOCOLF - FLATAURORA DIAGNOSTICSFinal Diagnosis VERRUCAL KERATOSIS (SEE COMMENT). COMMENT: The lesion shows features of a senescent verruca. WOJCIECH DIAGNOSTICSGross TextAURORA DIAGNOSTICSMicroscopic DescriptionMicroscopic examination performed.WOJCIEHC [id number]*1[facility]A DIAGNOSTICSSpecimen (Source)Anatomical Location / LateralityCollection Method / VolumeCollection TimeReceived TimeSkinTopography unknown / Brbckza5403/05/2025 1:38 PM EDTComment: Differential Diagnosis: AK vs SCC Check Margins: No Size of lesion: 1.3 x 1.2 cm Narrative Authorizing ProviderResult TypeResult StatusEmroosevelt VILA PATHOLOGY ORDERABLESFinal ResultPerforming OrganizationAddressCity/State/ZIP CodePhone Number [facility] from Last 3 Months Insurance * Guarantor: Valentín Mccall TypeRelation to PatientDate of BirthPhone Billing AddressPersonal/EzdzvxIlxr99[birth year][address] [address] Care Teams Team MemberRelationshipSpecialtyStart DateEnd Irving Cooley DO [address] [place] [phone] PCP - GeneralInternal Medicine07/23/24 Carlos Garzon MD [address] [place] [address] Referring PhysicianDermatolog08/01/24 Irving Fonseca DO [address] [place] [address] Otolaryngology2
--- OUTSIDE RECORDS SUMMARY | 2025-04-18 14:09 | XMS_ITS | Clinical Summary ---
Author Organization [facility] Address [address] [place] [address] Care Team Providers Care Soil Chemist Name Role Phone Unavailable Primary Care Provider Unavailabl e Social History Tobacco UseTypesPacks/DayYears UsedDateSmoking Tobacco: Never AssessedSex and Gender InformationValueDate RecordedSex Assigned at BirthNot on fileLegal Sex Male12/23/2021 11:37 PM EDTGender IdentityNot on fileSexual OrientationNot on file Last Filed Vital Signs Vital SignReadingTime TakenCommentsBlood Qlcqmejz345/7208 3:02 PM EDT Gungu9354 10:02 AM EDTTemperature--Respiratory Rate--Oxygen Saturation 97%02/02/2021 3:01 PM EDTInhaled Oxygen Concentration--Iyqetd11.4 kg (197 lb) 02/02/2021 2:59 PM EWQCrqvbw353.3 cm (5' 9 )02/02/2021 2:57 PM EDTBody Mass Index29.0902/02/2021 2:57 PM EDT Plan of Treatment Not on file
--- OUTSIDE RECORDS SUMMARY | 2025-04-18 14:09 | XMS_ITS | Clinical Summary ---
Author Organization [facility] Address [address] [place] [address] Care Team Providers Care Log Turner Name Role Phone Irving Cooley DO Primary Care Provider [phone] Social History Tobacco UseTypesPacks/DayYears UsedDateSmoking Tobacco: Never AssessedArea Deprivation IndexAnswerDate RecordedNational Score (1-100), lower number is lower dzzh421903/27/2024State Score (1-10), lower number is lower ngro500 Data from: https://www.neighborhoodatlas.[facility]/. Last address used for vg[address]ouq[address] [facility] [address]06/[address]23Sex and Gender InformationValueDate RecordedSex Assigned at BirthNot on fileLegal DnyTnbo3002/07/2024 4:34 PM EDT Gender IdentityNot on fileSexual OrientationNot on file Plan of Treatment Health MaintenanceDue DateLast DoneCommentsAnxiety Ezizquzts81/19/1960Depression Wngxkztrd45/19/1960RSV Vaccine (1 - 1-dose 75+ series)2016Advance Directive Ccpwgxudcm51/01/2025ovid-19 Vaccine ( season)2025 05/05/2023, 04/29/2022, 04/29/2022, Additional history existsInfluenza Vaccine (#1)/02/2023, 05/04/2023, 04/15/2022, Additional history exists Diabetes Ijtpvrwxs66/TaP,Tdap,Td Vaccine (2 - Td or Tdap) /02/2020, 04/03/2014Pneumococcal Vaccine: 50+Yyqmwriou90/18/2017, 03/12/2016, 11/07/2007Shingrix RsfwgluJpumaylha18/14/2019, 06/24/2018, 06/07/2018, Additional history exists Insurance * Guarantor: Valentín MccallAccount TypeRelation to PatientDate of BirthPhone Billing AddressPersonal/SuxgfhGzbf27/19/1941 [facility] [address] Care Teams Team MemberRelationshipSpecialtyStart DateEnd Date Irving Cooley DO [address] [place] [address] PCP - GeneralInternal Kltffsia30/3/24
--- OUTSIDE RECORDS SUMMARY | 2025-04-18 14:09 | XMS_ITS | Clinical Summary ---
Author Organization Entrec tem Address [id number] [place] [address] Care Team Providers Care Fuel Oil Clerk Name Role Phone Irving Cooley Primary Care Provider [phone] Allergies Active AllergyReactionsCriticalityNoted SwndWwtittezBjtbclghwmb07/09/2017 Medications MedicationSigDispense QuantityRefillsLast FilledStart DateEnd DateStatus isosorbide mononitrate (IMDUR) 30 mg 24 hr tablet 03/29/2017Active loratadine (CLARITIN) 10 mg tablet Take 10 mg by mouth once daily.Active nitroglycerin (NITRODUR) 0.4 mg/hr Place 1 patch on the skin daily.Active aspirin 81 mg Take 81 mg by mouth daily.Active amLODIPine (NORVASC) 10 mg tablet Take 10 mg by mouth daily.10/26/2020ctive triamcinolone (KENALOG) 0.1 % cream Apply 1 application topically 2 (two) times a day.09/23/2020ctive atorvastatin (LIPITOR) 20 mg tablet Take 20 mg by mouth daily.10/01/2020ctive Active Problems No known active problems Family History Medical HistoryRelationNameCommentsHeart diseaseBrotherCancerFatherHeart disease MotherBreast cancerNiece 1CancerNiece 2Breast cancerNiece 3CancerNiece 3Cancer Paternal UncleBreast cancerSister 1RelationNameStatusCommentsBrotherDeceased FatherDeceasedMotherDeceasedNiece 1AliveNiece 2DeceasedNiece 3AlivePaternal UncleDeceasedSister 1AliveSister 2AliveSonAlive Social History Tobacco UseTypesPacks/DayYears UsedDateSmoking Tobacco: FormerCigarettesQuit: 1994Smokeless Tobacco: FormerAlcohol UseStandard Drinks/WeekCommentsYes0 (1 standard drink = 0.6 oz pure alcohol)MODERATEChildcareAnswerDate Recorded UdjaohlnsHarxbdj31/13/2019EmploymentAnswerDate RecordedEmploymentUnknown 12/07/2018Purpose - LifeAnswerDate RecordedPurpose and direction in lifeUnknown 07/24/2020ex and Gender InformationValueDate RecordedSex Assigned at BirthNot on fileLegal WimOpge09/05/2017 9:28 AM EDTGender IdentityNot on fileSexual OrientationNot on file Last Filed Vital Signs Vital SignReadingTime TakenCommentsBlood Pymdyysv790/8801/07/2021 1:33 PM EDT Pulse--Clettcjniwt35.1 ??C (96.9 ??F)01/07/2021 1:33 PM EDTRespiratory Rate-- Oxygen Saturation--Inhaled Oxygen Concentration--Yqcnwf44.5 kg (193 lb) 01/07/2021 1:33 PM FOMZkrlme734.3 cm (5' 9 )01/07/2021 1:33 PM EDTBody Mass Index28.507 1:33 PM EDT Plan of Treatment Health MaintenanceDue DateLast DoneCommentsDepression Ociebiqkv26/19/1954Tobacco Ezuxibbmr78/19/1954DTaP,Tdap and Td Vaccines (1 - Tdap)1960Zoster (Shingles) Vaccine (1 of 2)10/14/1991Abdominal Aortic Aneurysm (AAA) Screen 2006Fall Risk Embepewyf71/19/2007Influenza Hojmemn07/01/2025Colonoscopy 607/12/2020, 05/31/2012 Medical Devices Not on file Procedures Procedure NamePriorityDate/TimeAssociated DiagnosisCommentsHM COLONOSCOPYRoutine 05/31/2012 from Last 3 Months or Most Recently Relevant to Health Maintenance Results * HM COLONOSCOPY (05/31/2012)ComponentValueRef RangeTest MethodAnalysis Time Performed AtPathologist SignatureHM ColonoscopyCOLONOSCOPYEHS EXTERNAL NON- INTERFACED REF LABSpecimen (Source)Anatomical Location / LateralityCollection Method / VolumeCollection TimeReceived Time05/31/2012 Narrative Authorizing ProviderResult TypeResult StatusScanning Provider ExternalHEALTH MAINTENANCEEdited Result - FinalPerforming OrganizationAddressCity/State/ZIP CodePhone Number [facility] EXTERNAL NON-INTERFACED REF LAB [address] [facility] [place] [address] from Last 3 Months or Most Recently Relevant to Health Maintenance Insurance * Guarantor: Valentín MccallAccount TypeRelation to PatientDate of BirthPhone Billing AddressPersonal/TzpwbvXvcs19/19/1941 [address] [place] [address] Care Teams Team MemberRelationshipSpecialtyStart DateEnd Irving Cooley DO [address] [place] [address] PCP - Luvljjq49/5/17
--- OUTSIDE RECORDS SUMMARY | 2025-04-18 14:12 | XMS_ITS | CCD ---
Author Organization [facility] Care Team Providers Care Operator Receptionist Name Role Phone AHMED, ANNA Unavailable Unavailable AHMED, ANNA Unavailable Unavailable ROLA IRVING Unavailable Unavailable AHMED, ANNA Unavailable Unavailable PHYSICIAN, DEFAULT Unavailable Unavailable PHYSICIAN, DEFAULT Unavailable Unavailable IRVING CANELA Unavailable Unavailable Irving Canela Unavailable Unavailable Unavailable Rola, DO Villatoro Primary Care Provider [phone] DO Alfred Baron Attending Provider Rola, DO Villatoro Primary Care Provider DO Alfred Baron Attending Provider [phone] Irving Canela Unavailable Rola, DO Villatoro Primary [...] SIM ., DR BEAU Ferrer Consulting Unavailable EUBAKNS, DR PHILL Floyd Primary Care Unavailable SIM [...] Unavailable BALL, DR VILLATORO Primary Care Unavailable BRUSSELS, DR KIKA Carranza Consulting Unavailable EUBANKS, DR [...] Admit Provider MD Karol Sage Attending Provider Markell Hinse Unavailable [phone] DO Irving Canela Primary Care Provider [phone] DO Alfred Baron Attending Provider Dr. Irving [...] Care Hayden Aden, Ms. Florence Vergara Referring Beatrisvathai julius Canela, Dr. Irving Dumont Primary Care Hayden Aden, MsPam Vergara Attending Hayden Aden, Ms. Florence Vergara Referring Beatrisvai julius Canela, Dr. Irving Dumont Primary Care Hayden Aden, MsPam Vergara Attending Hayden Aden, MsPam Vergara Referring Beatrisvai labama Canela, Dr. Irving Dumont Primary Care Hayden Aden, Florencecatalina Vergara Attending MD Markell Rosales Attending Provider Irving Canela DO Primary Care Provider DO Irving Canela Primary Care Provider DO Alfred Baron Attending Provider MD Don Imfely Attending Provider MD Miriam Juarez Attending Provider [...] Wagner MD Unavailable Irving Fonseca DO Unavailable BRENDON BARON Attending Unavailable IRVING CANELA Primary Care Unavailable BRENDON BARON Attending Unavailable BRENDON BARON Referring Unavailable IRVING CANELA Primary Care Unavailable Irving Canela Primary Care Unavailable Asaad, Imad Admitting Unavailable Don, Imad Attending Unavailable Sara Juarezva Admitting Unavailable Miriam Juarez Attending Unavailable Alfred Baron Attending Unavailable Alfred Baron Admitting Unavailable Irving Canela Primary Care Unavailable Irving Canela DO Primary Care Provider [phone] Alfred Baron DO Attending Provider Irving Canela DO Primary Care Provider Irving Canela DO Primary Care Provider [phone] Irving Canela DO Attending Provider [phone] Irving Canela DO Primary Care Provider PEDRO WAGNER Attending Unavailable MURCEK, IRVING Simon Attending Unavailable PEDRO WAGNER Referring Unavailable MURCEK, IRVING Simon Attending Unavailable MURCEK, IRVING Simon Attending Unavailable PEDRO WAGNER Referring Unavailable PETITTI, BASHIR A Attending Unavailable MURCEK, IRVING Simon Attending Unavailable PEDRO WAGNER Referring Unavailable PETITTI, BASHIR A Attending Unavailable PETITTI, BASHIR A Attending Unavailable PETITTI, BASHIR A Attending Unavailable Allergies Allergy ClassificationReported Allergen(s)Allergy TypeDate of OnsetReaction(s) Facility (3 sources)clopidogrel; Translations: [Plavix]Drug Ynemhiu99-80-6263XMPPupPro[facility] (1 source)TicagrelorDrug Stxsmmw23-60-8955VIKFhdProMedica Fostoria [facility] Rep[facility] (20 sources)clopidogrel; Translations: [Plavix]Drug Pjrmmjj07-97-7143Hssr, Eruption of skin (disorder), Hives, [facility] (9 sources)clopidogrel; Translations: [CLOPIDOGREL]Drug Sthwqij75-43-[address] [facility] (1 source)prasugrelDrug AllergyZanesville [facility] (20 sources)prednisoLONEDrug Jxeymyg77-49-0435CZ[facility] Medications Current Medications MedicationDrug Class(es)DatesSig (Normalized)Sig (Original)ALPRAZolam 0.25 mg oral tablet (20 sources)BenzodiazepineStart: 65-27-6535iqek 4 tablets by mouth three times dailyalprazolam 0.25 mg Tab mg tab(s), Oral, TID, Refills(s) 0 Start Date: 03/20/19 Status: OrderedALPRAZolam (Xanax) 0.25 MG tablet Activeamiodarone hydrochloride 100 mg oral tablet (20 sources)AntiarrhythmicStart: 70-14-3250Qukxuehayv 100 mg tablet Active 50 MG PO MoWeFr@0900 April 21, 2023 8:09am Complies with drug therapyStart: 95-59-5417Kceljpzseg Active 50 MG PO MoWeFr@0900 April 21, 2023 8:09amStart: 10-29-2022 End: 74-51-7388Xwntjejefu 200 mg tablet Discontinued 0 .ROUTE .COMPLEX October 29, 2022 12:00am October 29, 2022 2:17pm 100 mg orallyStart: 10-29-2022 End: 80-16-1599Uoltcvcocz 100 mg Tablet Discontinued 100 MG PO MoWeFr@0900 October 29, 2022 12:00am April 21, 2023 8:09amStart: 10-29-2022 End: 66-79-7855Ixsfluljyn Discontinued 0 .ROUTE .COMPLEX October 29, 2022 12:00am October 29, 2022 2:17pm 100 mg orallyStart: 77-93-6710popq 1 tablet by mouth once dailyAmiodarone HCl - 100 MG Oral Tablet TAKE 1 TABLET DAILY. Quantity: 90 Refills: 1 Ordered: 15-Oct-2022 Brendon Baron DO Start : 15-Oct-2022 Active Start: 33-62-3289vnbtkgwrbf (Pacerone) 200 MG tablet 10/15/2022 ActiveStart: 80-15-2318hzbeyiqvxs (Pacerone) 200 MG tablet TAKE 1/2 TABLET BY MOUTH TUESDAY THROUGH TUESDAY ONLY 10/15/2022 ActiveStart: 34-15-2543gqsw 1 tablet by mouth once dailyAmiodarone HCl - 200 MG Oral Tablet TAKE 1 TABLET BY MOUTH EVERY DAY Quantity: 90 Refills: 2 Ordered: 29-Oct-2021 Florence Zamarripa Start : 07-Oct-2021 Activetake 1 tablet by mouth every other dayAmiodarone HCl 100 MG 1 tablet Orally qod ActiveamLODIPine 2.5 mg oral tablet (20 sources)Dihydropyridine Calcium Channel BlockerStart: 20-02-4820ktqn 1 tablet by mouth once dailyamLODIPine (Norvasc) 2.5 MG tablet Take 2.5 mg by mouth Daily as directed 09/17/2024 ActiveStart: 10-98-7889grxh 1 tablet by mouth every twenty-four hoursamLODIPine Besylate 2.5 MG 1 tablet Orally Once a day October, ActiveStart: 01-71-3801bnhr 1 tablet by mouth every twenty-four hours amLODIPine Besylate 5 MG 1 tablet Orally Once a day October, ActiveStart: 03-20-2019 End: 52-51-4826txqv 1 tablet by mouth once dailyAmlodipine 10 mg Tablet Discontinued 10 MG PO Daily June 12, 2021 1:00am June 13, 2021 1 2:21pmapixaban 5 mg oral tablet (20 sources)Factor Xa InhibitorStart: 96-27-7273tcqp 1 tablet by mouth twice dailyApixaban (Eliquis) 5 mg Tablet Active 5 MG PO Twice daily October 29, 2022 12:00am Complies with drug therapyApixaban (ELIQUIS PO) Take by mouth Active aspirin 81 mg delayed release oral tablet (20 sources)Platelet Aggregation Inhibitor, Nonsteroidal Anti-inflammatory Drug Start: 79-85-1101ydhgmis 81 mg EC tablet Take 1 tablet (81 mg) by mouth. Take one tablet by mouth every Tue, Tue, Tue01/05/2022 ActiveStart: 06-12-2021 End: 25-49-3513pvhx 1 tablet by mouth three times weeklyAspirin 81 mg Tablet Discontinued 81 MG PO 3 Times a week June 12, 2021 1:00am September 13, 2023 11:53amStart: 63-84-8022hysg 81 mg by mouth once dailyAspirin Active 81 MG PO Daily June 12, 2021 1:00amaspirin 81 MG chewable tablet Activetake 1 tablet by mouth once dailyAspirin EC 81 MG Oral Tablet Delayed Release TAKE 1 TABLET DAILY. Quantity: 90 Refills: 3 Ordered: 02-Sep-2021 DO Activeatorvastatin 40 mg oral tablet (20 sources)HMG-CoA Reductase InhibitorStart: 10-29-2022 End: 64-82-2204Jhaodlnobgot 80 mg tablet Discontinued 40 MG PO Daily at bedtime October 29, 2022 12:21am October 29, 2024 10:40amStart: 36-08-8325jpth 40 mg by mouth once daily at bedtimeAtorvastatin Active 40 MG PO Daily at bedtime October 29, 2022 12:21amStart: 01-05-2022 End: 83-31-9715lbrp 1 tablet by mouth at bedtimeatorvastatin (Lipitor) 40 MG tablet Take 40 mg by mouth at bedtime 12/31/2022 ActiveStart: 06-13-2021 End: 29-33-2740boyn 1 tablet by mouth once dailyAtorvastatin 80 mg tablet Discontinued 80 MG PO Daily June 13, 2021 1:00am October 29, 2022 12:22am Start: 07-06-2019 End: 83-44-6076zxkh 1 tablet by mouth once dailyAtorvastatin 20 mg Tablet Discontinued 20 MG PO Daily June 12, 2021 1:00am June 13, 2021 12:21pmtake 1 tablet by mouth once dailyatorvastatin (Lipitor) 10 MG tablet Take 1 tablet by mouth Daily Activecephalexin 500 mg oral capsule (20 sources)Cephalosporin AntibacterialStart: 69-57-2789octn 1 capsule by mouth twice dailycephalexin (Keflex) 500 MG capsule Indications: Basal cell carcinoma of skin of scalp and neck Take1 capsule, by mouth, bid, 10 days 20 capsule 07/19/2024 Activecodeine phosphate 2 mg/ml / guaiFENesin 20 mg/ml oral solution (20 sources)Opioid AgonistguaiFENesin-codeine (Robitussin-AC) 100-10 MG/5ML syrup Activefluorouracil 50 mg/ml topical cream (20 sources)Nucleoside Metabolic InhibitorStart: 05-09-8671jjfjobyxreol (Efudex) 5 % cream Indications: Actinic keratosis Apply to directed areas on the scalp twice a day x 14 days. Dispense 30 day supply but only use for 14 days. 40 g 03/05/2025 ActiveStart: 06-14-2023 End: 60-16-5355dqcmfkplsirn (Efudex) 5 % cream Indications: Actinic keratosis Apply to directed areas on the scalptwice a day x 14 days. Dispense 30 day supply but only use for 14 days. 40 g 06/21/2023 07/22/2024 Discontinued hydrocortisone acetate 10 mg/ml topical cream (20 sources)CorticosteroidStart: 20-21-8242Zijzmmrjfuoinz Acetate 1 % cream Indications: Drug-induced photosensitivity Apply thin layer to affected areas, twice a day as needed for flares, 30 day supply 28.4 g 11 02/14/2024 Active Inhalational Spacing Device (Aerochamber Mini) spacer (7 sources)Start: 88-39-1249Ykkduqmcphtk Spacing Device (Aerochamber Mini) spacer Active 0 .ROUTE .MEDSUPPLY July 10, 2024 1:00am Use with inhaler Start: 35-05-8249Ysmppfixvxcv Spacing Device (Aerochamber Mini) spacer Active 0 .ROUTE .MEDSUPPLY July 10, 2024 12:00am Use with qcwncqu96 hr isosorbide mononitrate 30 mg extended release oral tablet (20 sources)Nitrate VasodilatorStart: 07-95-7358nebl 1 tablet by mouth once dailyIsosorbide Mononitrate 30 mg tablet extended release 24 hr Active 0 .ROUTE .COMPLEX March 26, 2024 12:37pm TAKE 1 TABLET BY MOUTH EVERY DAY Complies with drug therapyStart: 06-12-2021 End: 23-94-7005npsy 1 tablet by mouth once daily, then take 1 tablet by mouth every twenty-four hoursIsosorbide Mononitrate 30 mg Tablet Extended Release 24 Hr Discontinued 30 MG PO Daily June 12, 2021 1:00am March 26, 2024 12:37pmtake 1 tablet by mouth every twenty-four hours in the morningisosorbide mononitrate ER (Imdur) 30 MG 24 hr tablet Take 1 tablet by mouth in the morning. Activeloratadine 10 mg oral tablet (20 sources)Start: 83-28-2754xhub 1 tablet by mouth once dailyLoratadine 10 mg tablet Active 0 .ROUTE .COMPLEX January 12, 2025 10:02pm TAKE 1 TABLET BY MOUTH EVERY DAY Complies with drug therapyStart: 12-15-2023 End: 55-40-7323opoq 1 tablet by mouth once dailyLoratadine 10 mg tablet Discontinued 0 .ROUTE .COMPLEX December 15, 2023 8:40am February 02, 2024 11 :26am TAKE 1 TABLET BY MOUTH EVERY DAYStart: 12-15-2023 End: 46-54-0207wpcn 1 tablet by mouth once dailyLoratadine Discontinued 0 .ROUTE .COMPLEX December 15, 2023 8:40am February 02, 2024 11:26am TAKE 1TABLET BY MOUTH EVERY DAYStart: 03-20-2019 End: 83-79-5451brdv 1 tablet by mouth once dailyloratadine (Claritin) 10 MG tablet Take 10 mg by mouth Daily 12/06/2022 ActiveLoratadine 10 MG capsule ActiveNitro 0.4 mg Tab (1 source)Start: 10-41-8529Axuti 0.4 mg Tab = 1 tab(s), SubLingual, q5min, PRN Chest pain Start Date: 07/06/19 Status: Orderednitroglycerin 0.4 mg sublingual tablet (20 sources)Nitrate VasodilatorStart: 72-43-5602Fuqiprykecwmt 0.4 mg tablet, sublingual Active 0.4 MG SUBLINGUAL .COMPLEX as needed for chest pain September 13, 2023 12:00am 0.4 mg sublingually PRN; do not exceed 3 doses per episode Complies with drug therapyStart: 27-48-6250Usgoookiwkdka 0.4 MG Sublingual Tablet Sublingual DISSOLVE 1 TABLET UNDER THE TONGUE NEEDED FOR CHEST PAIN. Quantity: 25 Refills: 3 Ordered: 29-Nov-2022 Florence Zamarripa Start : 29-Nov-2022 Activenitroglycerin (Nitrostat) 0.4 MG SL tablet Activeapply 0.4 mg transdermal route every hour in the morningnitroglycerin (Nitrodur) 0.4 MG/HR patch Place 1 patch on the skin in the morning. Activepantoprazole 40 mg delayed release oral tablet (20 sources)Proton Pump InhibitorStart: 41-29-2168jdyp 1 tablet by mouth once dailyPantoprazole 40 mg tablet,delayed release (DR/EC) Active 40 MG PO Daily April 21, 2023 12:00am Complies with drug therapypolysaccharide iron complex 150 mg oral capsule (20 sources)Start: 64-20-4704xcrc polysaccharides (Nu-Iron,Niferex) 150 MG capsule 09/09/2022 Activeprasugrel 10 mg oral tablet (20 sources)P2Y12 Platelet Inhibitorprasugrel (Effient) 10 MG tablet Active traZODone hydrochloride 50 mg oral tablet (20 sources)Serotonin Reuptake InhibitorStart: 64-47-8286oqip 1 tablet by mouth at bedtimetraZODone (Desyrel) 50 MG tablet Take 50 mg by mouth at bedtime 11/24/2023 ActiveStart: 08-26-2023 End: 37-31-2964telo 1 tablet by mouth once daily at bedtimeTrazodone 50 mg tablet Discontinued 50 MG PO Daily at bedtime August 26, 2023 6:03pm October 8:34amStart: 87-24-5674zumv 0.5-1 tablets by mouth once at bedtime traZODone HCl 50 MG 1/2 - 1 tablet Orally q HS for 30 days Jul, Active zinc gluconate 50 mg oral tablet (20 sources)take 1 tablet by mouth once dailyzinc gluconate 50 mg tablet Take 1 tablet (50 mg) by mouth once daily. Activezolpidem tartrate 5 mg oral tablet (20 sources)gamma-Aminobutyric Acid-ergic AgonistStart: 05-17-2024 End: 72-73-0936xgwdczlz (Ambien) 5 MG tablet 5 mg at bedtime 05/17/2024 Active Completed/Discontinued Medications MedicationDrug Class(es)DatesSig (Normalized)Sig (Original)amitriptyline hydrochloride 10 mg oral tablet (20 sources)Tricyclic AntidepressantStart: 09-13-2023 End: 20-47-1586phfr 1 tablet by mouth once daily at bedtimeAmitriptyline 10 mg tablet Discontinued 10 MG PO Daily at bedtime September 13, 2023 12:00am September 2:92wu047 actuat budesonide 0.08 mg/actuat / formoterol fumarate 0.0045 mg/actuat metered dose inhaler (7 sources)Corticosteroid, beta2-Adrenergic AgonistStart: 07-10-2024 End: 99-57-3062fedo 1 puff(s) by inhalation every twelve hoursBudesonide- Formoterol 80-4.5 mcg/actuation HFA aerosol inhaler Discontinued 2 PUFF INHALATION Every12 hours 10.2 July 10, 2024 1:00am October 29, 2024 10:41am cholecalciferol 0.05 mg oral capsule (20 sources)Vitamin DStart: 06-12-2021 End: 62-93-3440fbsl 1 capsule by mouth once dailyCholecalciferol (Vitamin D3) (Vitamin D3) 50 mcg (2,000 unit) Capsule Discontinued 50 MCG PO Daily June 12, 2021 1:00am September 13, 2023 11:53amclopidogrel 75 mg oral tablet (10 sources)P2Y12 Platelet Inhibitor End: 49-71-8219dawi 1 tablet by mouth once dailyclopidogrel (Plavix) 75 MG tablet Take 1 tablet every day by oral route for 90 days. 07/22/2024 Disc ontinueddoxycycline hyclate 100 mg oral capsule (17 sources)Tetracycline-class DrugStart: 11-30-2024 End: 32-65-5052tjuu 1 capsule by mouth twice dailyDoxycycline Hyclate 100 mg capsule Discontinued 100 MG PO Twice daily November 30, 2024 12:00am March 01, 2025 1:25pmStart: 05-17-2024 End: 19-74-4690uedt 1 capsule by mouth twice dailyDoxycycline Hyclate 100 mg capsule Discontinued 100 MG PO Twice daily 07 01July 10, 2024 3:38pm September 19, 2024 8:56am24 hr metoprolol succinate 50 mg extended release oral tablet (20 sources)beta-Adrenergic BlockerStart: 06-13-2021 End: 81-70-3251ipil 1 tablet by mouth once dailyMetoprolol Succinate 50 mg tablet extended release 24 hr Discontinued 50 MG PO Daily June 13, 2021 1:00am October 29, 2022 12:18amoseltamivir 75 mg oral capsule (10 sources)Neuraminidase Inhibitor End: 16-38-2749Idzvcem 75 MG capsule 07/22/2024 DiscontinuedrifAXIMin 550 mg oral tablet (18 sources)Rifamycin AntibacterialStart: 05-01-2024 End: 83-36-6661fpwh 1 tablet by mouth three times dailyRifaximin 550 mg tablet Discontinued 550 MG PO Three times daily May 07, 2024 10:37am October 29, 2024 10:42amsulfamethoxazole 800 mg / trimethoprim 160 mg oral tablet (13 sources)Dihydrofolate Reductase Inhibitor Antibacterial, Sulfonamide AntimicrobialStart: 11-15-2023 End: 87-44-0518eqhl 1 tablet by mouth twice dailySulfamethoxazole-Trimethoprim 800-160 mg tablet Discontinued 1 TAB PO Twice daily 20 November 15, 2023 12:00am February 02, 2024 11:26amTc-99m tetrofosmin (Myoview) injection 10 millicurie (1 source)Start: 01-02-2024 End: millicurie, intravenous, Once in imaging, Starting on Tue01/02/24 at 1226, For 1 dose, Rfiesmrrej16 to 90 minutes prior to imaging unless otherwise indicated.Tc-99m tetrofosmin (Myoview) injection 30 millicurie (1 source)Start: 01-02-2024 End: millicurie, intravenous, Once in imaging, Starting on Tue01/02/24 at 1345, For 1 dose, Goabysajuy05 to 90 minutes prior to imaging unless otherwise indicated.ticagrelor 90 mg oral tablet (20 sources)Start: 06-13-2021 End: 16-27-7125qlxw 1 tablet by mouth twice dailyTicagrelor (Brilinta) 90 mg tablet Discontinued 90 MG PO Twice daily 60 June 13, 2021 1:00am October 29, 2022 12:18amZinc (20 sources)Start: 06-12-2021 End: 57-52-7814ubfo 1 capsule by mouth once dailyZinc 50 mg Capsule Discontinued 50 MG PO Daily June 12, 2021 1:00am April 21, 2023 8:09amStart: 06-12-2021 End: 56-52-6076qbsd 1 capsule by mouth once dailyZinc 50 mg Capsule Discontinued 50 MG PO Daily June 12, 2021 12:00am April 21, 2023 7:09amStart: 06-12-2021 End: 98-79-1355xkns 50 mg by mouth once dailyZinc Discontinued 50 MG PO Daily June 12, 2021 1:00am April 21, 2023 8:09amStart: 63-90-8700nyjw 50 mg by mouth once dailyZinc Active 50 MG PO Daily June 12, 2021 12:00amStart: 00-07-5871jqns 50 mg by mouth once dailyZinc Active 50 MG PO Daily June 12, 2021 1:00am Problems Active Problems Problem ClassificationProblemDateDocumented DateEpisodic/ChronicAbdominal pain (20 sources)Right upper quadrant pain; Translations: [Right upper quadrant pain] Onset: 458703-69-5988AbnkjirvFvugh bronchitis (8 sources)Acute bronchitis; Translations: [Acute bronchitis due to other specified organisms]04-96-7501MninubxiXeelyck disorders (4 sources)Generalized anxiety disorder; Translations: [Generalized anxiety disorder]Onset: 62-60-6850UmvvfpjMuakyxkwj-deficit, conduct, and disruptive behavior disorders (4 sources)Attention deficit hyperactivity disorder; Translations: [Attention- deficit hyperactivity disorder, unspecified type]ChronicCancer of prostate (4 sources)Malignant tumor of prostate; Translations: [Malignant neoplasm of prostate]Onset: 46-70-3536CjeuvxkYdjmgqq obstructive pulmonary disease and bronchiectasis (13 sources)Chronic bronchitis; Translations: [Unspecified chronic bronchitis] 36-84-5320EvrzwxjWaxgwvdftj associated with dizziness or vertigo (8 sources)Dizziness; Translations: [Dizziness and giddiness]96-08-5428Ytzjqivq Deficiency and other anemia (19 sources)Iron deficiency anemia due to blood loss; Translations: [Iron deficiency anemia secondary to blood loss (chronic)]93-58-7891PsmjvdlIvfmkgbomk and other anemia (17 sources)Iron deficiency anemia secondary to blood loss (chronic); Translations: [Iron deficiency anemia secondary to blood loss (chronic)]Chronic Deficiency and other anemia (16 sources)Iron deficiency anemia; Translations: [Iron deficiency anemia, unspecified]91-72-8147YfzazxlsTvpbwzedxp and other anemia (8 sources)Iron deficiency anemia, unspecified; Translations: [Iron deficiency anemia, unspecified]Onset: 00-13-4658EypnwilqBbbknwawzn and other anemia (1 source)Anemia, unspecifiedEpisodicDisorders of teeth and jaw (1 source)Jaw pain; Translations: [JAW PAIN]Onset: 86-00-5787OwvntxsfZduxhfppnc disorders (20 sources)Gastro-esophageal reflux disease with esophagitis; Translations: [Gastroesophageal reflux disease with esophagitis without hemorrhage]Chronic Gastrointestinal hemorrhage (12 sources)Rectal hemorrhage; Translations: [Hemorrhage of anus and rectum] EpisodicHeadache; including migraine (20 sources)Episodic tension-type headache; Translations: [Episodic tension-type headache, not intractable]31-85-4231YlrlslkXkgjcjjxacdqe and screening for infectious disease (4 sources)Vaccination given; Translations: [Encounter for immunization]Episodic Inflammatory conditions of male genital organs (12 sources)Orchitis; Translations: [Orchitis]57-58-7622GkywdfppAvfuivjtc (4 sources)Influenza due to Influenza A virus with upper respiratory signs; Translations: [Influenza due to other identified influenza virus with other respiratory manifestations]EpisodicMelanomas of skin (11 sources)Personal history of malignant melanoma of skin; Translations: [History of malignant melanoma of theskin]Onset: 746605-34-2964Ckmpyeik Miscellaneous mental health disorders (20 sources)Primary insomnia; Translations: [Primary insomnia]ChronicNeoplasms of unspecified nature or uncertain behavior (4 sources)Neoplastic disease; Translations: [Neoplasm of unspecified behavior of bone, soft tissue, and skin]23-40-4362MyuzkjeqZaqbz acquired deformities (6 sources)Surgical wound finding; Translations: [Acquired deformity of neck] 64-17-2207ImzqcbcmFyhcg aftercare (1 source)buttermaker (current) use of aspirin; Translations: [HALFWAY (CURRENT) USE OF ASPIRIN]Onset: 03-16-4283OnwybzggBjcdl aftercare (20 sources)Drug therapy finding; Translations: [Long-term (current) use of anticoagulants]EpisodicOther and unspecified benign neoplasm (17 sources)Benign neoplasm of colon; Translations: [Benign neoplasm of descending colon]EpisodicOther and unspecified benign neoplasm (1 source)Benign neoplasm of descending colonEpisodicOther and unspecified benign neoplasm (4 sources)Benign neoplasm of descending colon; Translations: [Benign neoplasm of descending colon]EpisodicOther and unspecified benign neoplasm (16 sources)Adenomatous polyp of colon ; Translations: [Benign neoplasm of descending colon]47-02-4145FanpsknvFionq circulatory disease (20 sources)Cardiac function test normal; Translations: [Normal cardiac ejection fraction]EpisodicOther circulatory disease (20 sources)Cardiovascular symptoms; Translations: [Other specified symptoms and signs involving the circulatory and respiratory systems]EpisodicOther connective tissue disease (2 sources)Right achilles tendonitis; Translations: [Achilles tendinitis, right leg]48-94-4213GmixjvptGomhc gastrointestinal disorders (20 sources)Irritable bowel syndrome with diarrhea; Translations: [Irritable bowel syndrome with diarrhea]87-41-5132LwsclszRjoyt gastrointestinal disorders (18 sources)Irritable bowel syndrome with diarrhea; Translations: [Irritable bowel syndrome]ChronicOther gastrointestinal disorders (4 sources)Irritable bowel syndrome characterized by constipation; Translations: [Irritable bowel syndrome with constipation]Onset: 20-89-3241MwsdvtkRluie gastrointestinal disorders (2 sources)Irritable bowel syndrome; Translations: [Irritable bowel syndrome without diarrhea]00-34-0541SyvgxvcKjwnq gastrointestinal disorders (3 sources)Irritable bowel syndrome without diarrhea; Translations: [Irritable bowel syndrome]11-98-6956RyadsmcCpvnc gastrointestinal disorders (4 sources)Fecal urgency; Translations: [Fecal urgency]EpisodicOther gastrointestinal disorders (1 source)Change in bowel habitEpisodicOther gastrointestinal disorders (2 sources)Altered bowel function; Translations: [Other specified symptoms and signs involving the digestive system and abdomen]23-86-4928MigkvldmPyxjo gastrointestinal disorders (1 source)Other specified symptoms and signs involving the digestive system and abdomen; Translations: [Othersymptoms involving digestive system]04-21-2023 EpisodicOther gastrointestinal disorders (12 sources)Loose stool; Translations: [Other fecal abnormalities]10-17-2023 EpisodicOther gastrointestinal disorders (12 sources)Disorder of gastrointestinal tract; Translations: [Other specified diseases of the digestive system]42-67-4910VtbxmwqyJxaqf gastrointestinal disorders (12 sources)Urgent desire for stool; Translations: [Fecal urgency]10-17-2023 EpisodicOther gastrointestinal disorders (3 sources)Other specified diseases of the digestive system; Translations: [Other specified disorders of intestine]74-99-7994YzvpoityVejct gastrointestinal disorders (3 sources)Other fecal abnormalities; Translations: [Abnormal feces]10-17-2023 EpisodicOther gastrointestinal disorders (13 sources)Small bowel bacterial overgrowth syndrome; Translations: [Small intestinal bacterial overgrowth (SIBO)]48-02-5279MyvxjedgRvjyu inflammatory condition of skin (12 sources)Pruritic rash; Translations: [Other prurigo]98-27-4079YvhbqwdyDpznb injuries and conditions due to external causes (4 sources)History of fall; Translations: [History of falling]EpisodicOther lower respiratory disease (1 source)Shortness of breath; Translations: [SHORTNESS OF BREATH]Onset: 37-87-1979HqtfbsblPqgta lower respiratory disease (20 sources)Solitary nodule of lung; Translations: [Solitary pulmonary nodule] EpisodicOther lower respiratory disease (4 sources)Dyspnea; Translations: [Dyspnea, unspecified]91-05-1888SwysceqeAcoum lower respiratory disease (1 source)Dyspnea, unspecified; Translations: [Other respiratory abnormalities] 62-38-8418RhlvzoxaAhplz lower respiratory disease (17 sources)Nodule of lung; Translations: [Solitary pulmonary nodule]09-13-2023 EpisodicComment on above:PFT: FEV1/FVC 70, FEV1 115%, TLV 113%, DLCO 144% - 08/2024Other lower respiratory disease (1 source)Solitary pulmonary nodule; Translations: [Solitary pulmonary nodule] 91-14-1335QbsgikhoEydin nervous system disorders (11 sources)Hereditary disorder of nervous system; Translations: [Hereditary and idiopathic neuropathy, unspecified]ChronicOther nervous system disorders (1 source)Other chronic pain; Translations: [OTHER CHRONIC PAIN]Onset: 19-29-8877PqessjrCzkyl nervous system disorders (16 sources)Neuropathy; Translations: [Hereditary and idiopathic neuropathy, unspecified]74-13-1209ZwtppavGrqbj non-epithelial cancer of skin (20 sources)Basal cell carcinoma; Translations: [Basal cell carcinoma of skin, unspecified]92-49-5057OzvaxoyxAyhff non-traumatic joint disorders (7 sources)Arthralgia of the pelvic region and thigh; Translations: [Pain in right hip]EpisodicOther non-traumatic joint disorders (4 sources)Pain in right hip joint; Translations: [Pain in right hip]Episodic Other non-traumatic joint disorders (2 sources)Hip pain; Translations: [Pain in unspecified hip]36-84-6094Smdcjynm Other nutritional; endocrine; and metabolic disorders (4 sources)Simple obesity ; Translations: [Other obesity due to excess calories] Onset: 10-75-9396UltvtloBmgbj nutritional; endocrine; and metabolic disorders (4 sources)Obesity; Translations: [Obesity, unspecified]Onset: 82-24-6692Pudwric Other nutritional; endocrine; and metabolic disorders (4 sources)Overweight; Translations: [Overweight]EpisodicOther nutritional; endocrine; and metabolic disorders (2 sources)OverweightEpisodicOther nutritional; endocrine; and metabolic disorders (2 sources)Body mass index (BMI) 29.0-29.9, adult; Translations: [Body mass index (BMI) 29.0-29.9, adult]Onset: 02-06-1992QxkgdukzGahzu screening for suspected conditions (not mental disorders or infectious disease) (10 sources)Blood chemistry abnormal; Translations: [Other specified abnormal findings of blood chemistry] Resolved: 262969-94-4961IafmfptiKmfgqsg on above:PSA: <0.1 - 08/2024Other skin disorders (10 sources)Seborrheic keratosis; Translations: [Other seborrheic keratosis] 01-46-2271ByzzramgZeaul skin disorders (10 sources)Lentiginosis; Translations: [Other melanin hyperpigmentation] 60-66-1402BpdzdjmsAgscs skin disorders (10 sources)Actinic keratosis; Translations: [Actinic keratosis]05-21-2024 EpisodicOther skin disorders (2 sources)Papule of skin; Translations: [Other skin changes]85-65-2667Swpuekty Other upper respiratory disease (11 sources)Allergic rhinitis due to pollen; Translations: [Allergic rhinitis due to pollen]ChronicOtitis media and related conditions (1 source)Unspecified Eustachian salpingitis, bilateralEpisodicResidual codes; unclassified (1 source)Personal history of irradiation; Translations: [PERSONAL HISTORY OF IRRADIATION]Onset: 97-73-0522NkgmbjzzVmzuihmh codes; unclassified (7 sources)Edema; Translations: [Localized edema]EpisodicResidual codes; unclassified (4 sources)Localized edema; Translations: [Localized edema]EpisodicResidual codes; unclassified (4 sources)Tobacco user; Translations: [Tobacco use]EpisodicResidual codes; unclassified (3 sources)Bilateral lower limb edema; Translations: [Localized edema]09-13-2023 EpisodicResidual codes; unclassified (8 sources)Insomnia; Translations: [Insomnia, unspecified]96-66-0263Sptbjucj Residual codes; unclassified (3 sources)Insomnia, unspecified; Translations: [Insomnia, unspecified] 83-40-3961BcxqmabdExzmrja detachments; defects; vascular occlusion; and retinopathy (4 sources)Retinal disorder; 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] Onset: 26-38-9102LqaqabzYvfskqvchhu; intervertebral disc disorders; other back problems (20 sources)Lumbar spondylosis; Translations: [Spondylosis without myelopathy or radiculopathy, lumbar region]Onset: 96-81-4557RqglxynUvqghvmesat; intervertebral disc disorders; other back problems (12 sources)Low back pain; Translations: [Lumbar pain]74-24-8581SpprumzhYjcopqy and strains (10 sources)Strain of biceps brachii muscle and/or tendon; Translations: [Strain of muscle, fascia and tendon of other parts of biceps, left arm, initial encounter]EpisodicSyncope (5 sources)Near syncope; Translations: [Syncope and collapse]11-99-1297Rhbgcrsk Unclassified (2 sources)Unknown / UNK(Unknown)Onset: 48-55-2952Qjgkafazdblj (4 sources)CONTACT W/AND (SUSP) EXPOS COVID-19; Translations: [CONTACT W/AND (SUSP) EXPOS COVID-19]Onset: 39-08-0596Jnsqkufnolve (4 sources)LOW BACK PAIN, UNSPECIFIED; Translations: [LOW BACK PAIN, UNSPECIFIED]Onset: 14-01-9566Pnmgziyszbeg (4 sources)Exposure to acute respiratory syndrome coronavirus 2; Translations: [Contact with and (suspected) exposure to COVID-19]Viral infection (4 sources)Viral disease; Translations: [Viral infection, unspecified]Episodic Viral infection (4 sources)Disease caused by 2019-nCoV; Translations: [COVID-19] Past or Other Problems Problem ClassificationProblemDateDocumented DateEpisodic/ChronicAcute myocardial infarction (20 sources)Myocardial infarction; Translations: [Non-ST elevation (NSTEMI) myocardial infarction]Onset: 06-12-2021 Resolved: 417667-88-9514KtfgctmTmqpbydx reactions (10 sources)Allergic contact dermatitis due to plants, except food; Translations: [Allergic contact dermatitis due to plants, except food]Onset: 06-14-2016 Resolved: 633753-21-0466IisghkmiFnzhlbvos and vision defects (18 sources)Bilateral regular astigmatism; Translations: [Regular astigmatism, bilateral]Onset: 07-22-2024 Resolved: 288343-52-8415QnvexvdbPbxmix of prostate (20 sources)Personal history of malignant neoplasm of prostate; Translations: [History of malignant neoplasm ofprostate]Onset: 05-09-2018 Resolved: 009064-72-9355MxaxrkvgIywepmd dysrhythmias (20 sources)Paroxysmal atrial fibrillation; Translations: [Atrial fibrillation] Onset: 06-24-2023 Resolved: 63-20-0603KssvlokThkjrwq dysrhythmias (20 sources)Bradycardia; Translations: [Other specified cardiac dysrhythmias] Onset: 06-24-2023 Resolved: 86-29-0106LwwnahgqLfqisklz atherosclerosis and other heart disease (20 sources)Unstable angina; Translations: [Old myocardial infarction]Onset: 05-21-2015 Resolved: 898432-64-5823QoonmeuArqwlbt on above:PCI/stent x 3 - [facility], normal - oronary atherosclerosis and other heart disease (20 sources)Presence of coronary angioplasty implant and graft; Translations: [Patient post percutaneous transluminal coronary angioplasty]Onset: 05-09-2018 Resolved: 557171-64-1876FnhbftvkArdsbomst of lipid metabolism (20 sources)Hyperlipidemia, unspecified; Translations: [Mixed hyperlipidemia] Onset: 03-26-2015 Resolved: 420236-91-2055HwglyqyJ Codes: Adverse effects of medical drugs (4 sources)Adverse effect of antithrombotic drugs, initial encounter; Translations: [Adverse effect of antithrombotic drugs, initial encounter]Onset: 02-13-5728UvhwgmixZpfhgiocmp disorders (2 sources)Esophageal disordersEssential hypertension (20 sources)Essential (primary) hypertension; Translations: [Benign hypertension]Onset: 05-09-2018 Resolved: 715616-40-6719CyjujmuCbselvtifzvmb symptoms and ill-defined conditions (19 sources)Urge incontinence of urine; Translations: [Urge incontinence]Onset: 07-22-2024 Resolved: 058265-27-5554HkrxdpqIzqkeetvjxmrt symptoms and ill-defined conditions (20 sources)Dysuria; Translations: [Dysuria]Onset: 07-14-2018 Resolved: 877369-01-8913EhkyxbplPupekkypbril with complications and secondary hypertension (4 sources)Malignant hypertensive chronic kidney disease; Translations: [Hypertensive chronic kidney disease with stage 1 through stage 4 chronic kidney disease, or unspecified chronic kidney disease] Resolved: 02-04-3702QzzczrrXicznwqqi of skin (20 sources)Malignant melanoma; Translations: [Malignant melanoma of skin, unspecified]Onset: 07-22-2024 Resolved: 049263-86-9411IjivdppXapqsei (18 sources)Dermatophytosis; Translations: [Dermatophytosis, unspecified]Onset: 07-22-2024 Resolved: 871231-31-4102HouoqbkpIzrqmjcxkzi chest pain (20 sources)Chest pain, unspecified; Translations: [Chest pain]Onset: 04-21-2015 Resolved: 77-77-1441SqdwqmtsIhkujxhgf or stenosis of precerebral arteries (20 sources)Carotid artery occlusion; Translations: [Occlusion and stenosis of unspecified carotid artery]Onset: 06-08-2017 Resolved: 545917-78-3292SuetoaxFgfwgsfxzeazbu (20 sources)Arthritis of right hip; Translations: [Unilateral primary osteoarthritis, right hip]Onset: 07-22-2024 Resolved: 60-01-3497WlohelqAndvk aftercare (20 sources)Taking high risk medication; Translations: [Other terminal supervisor (current) drug therapy]Onset: 12-28-2023 Resolved: 712938-35-4997JplkuyhlQifun aftercare (18 sources)Patient encounter status; Translations: [Encounter for therapeutic drug level monitoring]Onset: 07-22-2024 Resolved: 987072-67-2138LlznhefuZlhnn aftercare (18 sources)Long-term current use of anticoagulant; Translations: [buttermaker (current) use of anticoagulants]Onset: 07-22-2024 Resolved: 022076-27-2149PuccsbvuKtxtp aftercare (2 sources)Other senior living (current) drug therapy; Translations: [Other senior living (current) drug therapy]Onset: 50-96-4887DiazaunrTbehe connective tissue disease (1 source)Myalgia, unspecified site; Translations: [MYALGIA UNSPECIFIED SITE] Onset: 54-34-7308NgkvgatdCfxkm connective tissue disease (18 sources)Enthesopathy; Translations: [Enthesopathy, unspecified]Onset: 07-22-2024 Resolved: 360404-67-5791CxehikcqWjjre eye disorders (4 sources)Dermatochalasis of unspecified eye, unspecified eyelid; Translations: [DERMATOCHALASIS UNS EYE UNS EYELID]Onset: 67-96-1365LhcpaufsYqixy eye disorders (1 source)Unspecified ptosis of unspecified eyelid; Translations: [UNSPEC PTOSIS OF UNS EYELID]Onset: 80-89-0118CaooeynjWguru gastrointestinal disorders (4 sources)Flatulence, eructation and gas pain; Translations: [Abdominal distension (gaseous)]Onset: 91-07-7449JosjlcvcYzinm gastrointestinal disorders (19 sources)Diarrhea; Translations: [Diarrhea, unspecified]Onset: 07-22-2024 Resolved: 977533-59-8303TsaypcbpKcwxf gastrointestinal disorders (1 source)Diarrhea, unspecified; Translations: [Diarrhea, unspecified]Onset: 63-32-8793KlkstngvJaubf inflammatory condition of skin (4 sources)Itching of skin; Translations: [Pruritus, unspecified]Onset: 48-98-3188FqylrttnXvcip inflammatory condition of skin (4 sources)Intertrigo; Translations: [Erythema intertrigo]Onset: 03-26-2015 EpisodicOther lower respiratory disease (4 sources)Cough; Translations: [Cough, unspecified]Onset: 74-47-5905Aufiytjh Other lower respiratory disease (4 sources)Lung field abnormal; Translations: [Other nonspecific abnormal finding of lung field]Onset: 74-69-4336FtbvoplgBevoc male genital disorders (19 sources)Erectile dysfunction following radical prostatectomy; Translations: [Erectile dysfunction followingradical prostatectomy]Onset: 07-22-2024 Resolved: 143761-73-2550QlmozarPqjvb nervous system disorders (18 sources)Difficulty walking; Translations: [Difficulty in walking, not elsewhere classified]Onset: 07-22-2024 Resolved: 898400-38-8037NhmpdhaIjtkd nervous system disorders (20 sources)Paresthesia; Translations: [Paresthesia of skin]Onset: 07-22-2024 Resolved: 263486-17-6748FyxpnvuaLmslk non-traumatic joint disorders (4 sources)Pain in right hip; Translations: [PAIN IN RIGHT HIP]Onset: 12-29-2021 EpisodicOther non-traumatic joint disorders (18 sources)Arthralgia of the ankle and/or foot; Translations: [Pain in unspecified ankle and joints of unspecified foot]Onset: 07-22-2024 Resolved: 013175-86-9197FtxhdssyZkpcx nutritional; endocrine; and metabolic disorders (20 sources)Overweight in adulthood with body mass index of 25 or more but less than 30; Translations: [Overweight]Onset: 12-28-2023 Resolved: 785977-04-2269DpklemjpArmay nutritional; endocrine; and metabolic disorders (2 sources)Body mass index (BMI) 28.0-28.9, adult; Translations: [Body mass index (BMI) 28.0-28.9, adult]Onset: 26-86-6775IsrfrfktJgspyuje codes; unclassified (19 sources)H/O: anticoagulant therapy; Translations: [Personal history of other drug therapy]Onset: 07-22-2024 Resolved: 144508-72-9715StigefczOndnwkten and history of mental health and substance abuse codes (20 sources)Personal history of nicotine dependence; Translations: [Ex-smoker] Onset: 05-09-2018 Resolved: 379997-34-9930LzonrrjzIgoncia on above:quit 1995ish;Unclassified (1 source)CONTACT W/AND (SUSP) EXPOS COVID-19; Translations: [CONTACT W/AND (SUSP) EXPOS COVID-19]Onset: 78-93-4604Tnhbruifpjex (1 source)LOW BACK PAIN, UNSPECIFIED; Translations: [LOW BACK PAIN, UNSPECIFIED] Onset: 03-21-2845Mbhquyfbchuq (8 sources)Onset: 07-25-2023 Resolved: Results Test NameValueInterpretationReference RangeFamercyone oelwein medical centerNo Panel Informationon 18-08-7659IRKN HealthcareType of biopsy: tangential Informed consent: discussed and [...] Dressing type: bandage Additional details: Photo taken yes Amount of lidocaine used: 0.5 [facility]No Panel Informationon 20-00-1833XHCNUniversity Health Lakewood Medical CenterBasophils Auto (Bld) [#/Vol]on 10-01-2024 Basophils (Bld) [#/Vol]Automated basophil count0.0-0.1FKnox Community HospitalBasophils/100 WBC Auto (Bld)on 19-64-2447Flenpnupe/100 WBC (Bld)Automated basophil %0.2-2.0[facility]burgEosinophils/100 WBC Auto (Bld)on 29-37-9928Mhmyojbdovp/100 WBC (Bld)Automated eosinophil %0.9-7.0 [facility]amisburgErythrocyte distribution width Auto (RBC) [Ratio]on 46-24-3249Umlnkfmvdwc distribution width (RBC) [Ratio]Erythrocyte distribution width [Ratio] by Automated count11.0-15.0[facility] MiamisburgEstimated glomerular filtration rate (GFR) non- Americanon 57-03-9666EMS/1.73 sq M.predicted among non-blacks MDRD (S/P/Bld) [Vol rate/Area]Estimated glomerular filtration rate (GFR) non->=60 mL/min/1.73m 2FKnox Community HospitalHematocrit Auto (Bld) [Volume fraction]on 73-81-5145Tootqorifz (Bld) [Volume fraction]Hematocrit [Volume Fraction] of Blood by Automated count42.0-54.0[facility] Hemoglobin [Mass/volume] in Bloodon 13-92-8983Kzzitgjbah (Bld) [Mass/Vol] Hemoglobin [Mass/volume] in Blood14.0-18.0[facility] - Chemistry and Chemistry - challengeon 08-31-7773Awzkokj [Mass/Vol] 9.0 mg/dL8.5-10.1FKnox Community HospitalChloride [Moles/Vol]104 mmol/L 98-107[facility] MiamisburgCO2 [Moles/Vol]31.6 mmol/L21.0-32.0 [facility]burgCreatinine [Mass/Vol]1.09 mg/dL0.70-1.30 [facility] MiamisburgGFR/1.73 sq M.predicted MDRD (S/P/Bld) [Vol rate/Area]mL/min/{1.73_m2}>=60 mL/min/1.73m 2FKnox Community Hospital Glucose [Mass/Vol]92 mg/cA36-492XpuquagcxKettering Health MiamisburgPotassium [Moles/Vol]4.3 mmol/L3.5-5.1FKeenan Private Hospitalodium [Moles/Vol] 141 mmol/M868-189QfgmjpsmhKettering Health MiamisburgUrea nitrogen [Mass/Vol]20.0 mg/dLHigh7.0-18.0[facility] MiamisburgUrea nitrogen/Creatinine [Mass ratio]18.3 mg/mgKettering Health MiamisburgLaboratory - Hematology and Cell countson 88-33-9558Lnejjogq granulocytes/100 WBC (Bld)0.1 %0.0-0.5FKnox Community HospitalLeukocytes [#/volume] corrected for nucleated erythrocytes in Blood by Automated counon 00-55-2886CGF corrected for nucl RBC Auto (Bld) [#/Vol]Leukocytes [#/volume] corrected for nucleated erythrocytes in Blood by Automated coun4.0-11.0[facility] MiamisburgLymphocytes Auto (Bld) [#/Vol]on 48-54-6475Hftytxmknhe (Bld) [#/Vol]Lymphocytes [#/volume] in Blood by Automated count1.2-3.8[facility] MiamisburgLymphocytes/100 WBC Auto (Bld)on 46-56-9566Xldhrepgmdi/100 WBC (Bld)Lymphocytes/100 leukocytes in Blood by Automated count20.5-60.0[facility] SouthH Auto (RBC) [Entitic mass]on 40-09-0359AOA (RBC) [Entitic mass]MCH [Entitic mass] by Automated count25.9-34.0[facility] MiamisburgMCHC Auto (RBC) [Mass/Vol]on 63-05-0167CCDA (RBC) [Mass/Vol]MCHC [Mass/volume] by Automated count29.9-35.2FKnox Community HospitalMCV Auto (RBC) [Entitic vol]on 12-32-7837UUM (RBC) [Entitic vol]MCV [Entitic volume] by Automated countHigh 80.0-94.0[facility] MiamisburgMonocytes Auto (Bld) [#/Vol]on 30-65-6249Nhbxnoqqi (Bld) [#/Vol]Automated blood monocyte countHigh0.3-0.8 [facility]amisburgMonocytes/100 WBC Auto (Bld)on 10-01-2024 Monocytes/100 WBC (Bld)Automated monocyte %1.7-12.0[facility] MiamisburgNeutrophils Auto (Bld) [#/Vol]on 10-79-1482Wqvysdkzvjr (Bld) [#/Vol] Neutrophils [#/volume] in Blood by Automated count1.4-6.5FKnox Community HospitalNeutrophils/100 WBC Auto (Bld)on 13-22-6373Nooyvzdwmqo/100 WBC (Bld)Automated neutrophil %43.0-75.0[facility]burgNo Panel Informationon 81-72-5176Vfftxpjadss # (Auto)0.2 10 3/uL0.0-0.7FKnox Community HospitalImmature Granulocyte # (Auto)0.01 10 3/uL0.00-0.03[facility] MiamisburgPlatelet mean volume Auto (Bld) [Entitic vol]on 89-53-8140Optezzwj mean volume (Bld) [Entitic vol]Platelet mean volume [Entitic volume] in Blood by Automated count9.5-13.5FKnox Community Hospital Platelets Auto (Bld) [#/Vol]on 87-35-5582Ngippslzn (Bld) [#/Vol]Platelets [#/volume] in Blood by Automated -372IafsbnyqwKettering Health Miamisburg RBC Auto (Bld) [#/Vol]on 12-64-4261STA (Bld) [#/Vol]Erythrocytes [#/volume] in Blood by Automated count4.70-6.10[facility] Hospitalerum or plasma anion gap determinationon 79-49-5528Jizkj gap [Moles/Vol]Serum or plasma anion gap determinationKettering Health MiamisburgIron binding capacity [Mass/volume] in Serum or Plasmaon 44-52-5420Xaty binding capacity [Mass/Vol] Iron binding capacity [Mass/volume] in Serum or Earwmg011.0-450.0[facility] MiamisburgIron saturation [Mass Fraction] in Serum or Plasmaon 86-99-4746Cpjt saturation [Mass fraction]Iron saturation [Mass Fraction] in Serum or PlasmaKettering Health MiamisburgLaboratory - Chemistry and Chemistry - challengeon 64-23-4513Eqbvlyvlm (Vitamin B12) [Mass/Vol]675 pg/mL 232-1245[facility] MiamisburgComment on above:Performed at: - Lab[address] [id number] Director: Terell Silva PhD, Phone: [phone] [Mass/Vol]124.0 ng/mL26.0-388.0 [facility] MiamisburgIron [Mass/Vol]123.0 ug/dL65.0-175.0[facility] MiamisburgAspartate Amino Transferaseon 94-11-6474VZH [Catalytic activity/Vol]15 U/GHnjpmc68-71Pfm [facility] Physician GroupComment on above: Performed By: #### BMP, AST, TSH3 #### [facility] [address] [place] [address] USAAspartate aminotransferase [Enzymatic activity/volume] in Serum or PlasmaOrdered By: Alfred Baron on 90-19-2609QII [Catalytic activity/Vol] Aspartate aminotransferase [Enzymatic activity/volume] in Serum or Jyehdn62-08 [facility] MiamisburgBasic Metabolic Panelon 74-61-0493Jufcv gap [Moles/Vol]8.9 mmol/LNormal6.0-15.0The [facility] Physician GroupComment on above:Performed By: #### BMP, AST, TSH3 #### [facility] [address] [place] [address] USACalcium [Mass/Vol]9.0 mg/dLNormal8.6-10.3The [facility] Physician GroupComment on above:Performed By: #### BMP, AST, TSH3 #### [facility] [address] [place] [address] USAChloride [Moles/Vol]106 mmol/KSoersc56-544Quw [facility] Physician GroupComment on above:Performed By: #### BMP, AST, TSH3 #### [facility] [address] [place] [address] USACO2 [Moles/Vol]29.3 mmol/LIdkruz59.0-31.0The [facility] Physician GroupComment on above:Performed By: #### BMP, AST, TSH3 #### [facility] [address] [place] [address] USACreatinine [Mass/Vol]0.87 mg/dLNormal0.70-1.30The [facility] Physician GroupComment on above:Performed By: #### BMP, AST, TSH3 #### [facility] [address] [place] [address] USAGFR/1.73 sq M.predicted MDRD (S/P/Bld) [Vol rate/Area] mL/min/{1.73_m2}NormalThe [facility] Physician GroupComment on above:Performed By: #### BMP, AST, TSH3 #### [facility] [address] [place] [address] USAGlucose [Mass/Vol]83 mg/fBEyecyj18-854Zlx [facility] Physician GroupComment on above:Result Comment: Random Glucose Reference Range is dependent on time and content of last meal. Glucose of more than 200 mg/dL in a nonstressed, ambulatory subject supports the diagnosis of Diabetes Mellitus. ADA recommended reference rangePerformed By: #### BMP, AST, TSH3 #### [facility] [address] [place] [address] USAPotassium [Moles/Vol]4.2 mmol/LNormal3.5-5.1The [facility] Physician GroupComment on above:Performed By: #### BMP, AST, TSH3 #### [facility] [address] [place] [address] USASodium [Moles/Vol]140 mmol/NXendty860-715Rat [facility] Physician GroupComment on above:Performed By: #### BMP, AST, TSH3 #### [facility] [address] [place] [id number] USAUrea nitrogen [Mass/Vol]27 mg/dLHigh7-25The [facility] Physician GroupComment on above:Performed By: #### BMP, AST, TSH3 #### [facility] [address] [place] [id number] USACalcium [Mass/volume] in Serum or PlasmaOrdered By: Alfred Baron on 28-52-6100Rzqakhz [Mass/Vol]Calcium [Mass/volume] in Serum or Plasma 8.6-10.3FKnox Community HospitalCarbon dioxide, total [Moles/volume] in Serum or PlasmaOrdered By: Alfred Baron on 08-72-8140XE8 [Moles/Vol]Carbon dioxide, total [Moles/volume] in Serum or Ghnpwg74.0-31.0[facility] MiamisburgChloride [Moles/volume] in Serum or PlasmaOrdered By: Alfred Baron on 41-48-7331Goufugku [Moles/Vol]Chloride [Moles/volume] in Serum or Ihhlyr54-935 [facility]amisburgCreatinine [Mass/volume] in Serum or Plasma Ordered By: Alfred Baron on 21-14-8399Sasmrzndej [Mass/Vol]Creatinine [Mass/volume] in Serum or Plasma0.70-1.30[facility]amisburgGlucose [Mass/volume] in Serum or PlasmaOrdered By: Alfred Baron on 30-32-5512Cmtbhzd [Mass/Vol]Glucose [Mass/volume] in Serum or Zyhbqj14-819CxejrpijzKettering Health MiamisburgComment on above:ADA recommended reference rangeRandom Glucose Reference Range is dependent on time and content of last meal. Glucose of more than 200 mg/dL in a nonstressed, ambulatory subject supports the diagnosisof Diabetes Mellitus.No Panel InformationOrdered By: Alfred Baron on 08-28-2024 Estimated GFR (CKD-EPI)> 60.0 mL/MinKettering Health MiamisburgPharmacy Creatinine Clearance (ChemN/AFKnox Community HospitalPotassium [Moles/volume] in Serum or PlasmaOrdered By: Alfred Baron on 23-57-4943Ctdfbfces [Moles/Vol]Potassium [Moles/volume] in Serum or Plasma3.5-5.1FKeenan Private Hospitalerum or plasma anion gap determinationOrdered By: Alfred Baron on 35-59-5152Zfkos gap [Moles/Vol]Serum or plasma anion gap determination6.0-15.0 [facility] Hospitalodium [Moles/volume] in Serum or PlasmaOrdered By: Alfred Baron on 84-19-3064Ljntta [Moles/Vol]Sodium [Moles/volume] in Serum or Hvvljp889-368BhvfpdpesKettering Health MiamisburgThyroid Stimulating Hormoneon 45-97-3243JPB Qn1.04 m[IU]/LNormal0.45-5.33The [facility] Physician GroupComment on above:Result Comment: PERFORMED BY: [facility] [address] [facility] [place] [address] PATHOLOGIST DESTINATION SIGN REPAIRER DASHAWN GARCIA M.D.Performed By: #### BMP, AST, TSH3 #### [facility] [address] [place] [address] USAThyrotropin [Units/volume] in Serum or PlasmaOrdered By: Alfred Baron on 88-89-0688RHC QnThyrotropin [Units/volume] in Serum or Plasma 0.45-5.33[facility] MiamisburgUrea nitrogen [Mass/volume] in Serum or PlasmaOrdered By: Alfred Baron on 92-49-8274Hxwv nitrogen [Mass/Vol]Urea nitrogen [Mass/volume] in Serum or PlasmaHigh7-25[facility]amisburgNo Panel Informationon 63-04-5957UQVF HealthcareBasophils Auto (Bld) [#/Vol]on 12-39-9840Umgxqjtfq (Bld) [#/Vol]Automated basophil count0.0-0.1 [facility]amisburgBasophils/100 WBC Auto (Bld)on 07-27-2024 Basophils/100 WBC (Bld)Automated basophil %0.2-2.0[facility]amisburgEosinophils/100 WBC Auto (Bld)on 43-09-7216Fhnmapmlsum/100 WBC (Bld) Automated eosinophil %0.9-7.0[facility] MiamisburgErythrocyte distribution width Auto (RBC) [Ratio]on 99-09-8588Ekbcczcynmr distribution width (RBC) [Ratio]Erythrocyte distribution width [Ratio] by Automated count11.0-15.0 [facility] MiamisburgEstimated glomerular filtration rate (GFR) non- Americanon 71-32-6654CZE/1.73 sq M.predicted among non-blacks MDRD (S/P/Bld) [Vol rate/Area]Estimated glomerular filtration rate (GFR) non- AmericanLow>=60 mL/min/1.73m 2FKnox Community HospitalGlobulin Calc (S) [Mass/Vol]on 87-61-5180Dklepasu (S) [Mass/Vol]Serum globulin measurement by calculation (mass/volume)[facility] MiamisburgHematocrit Auto (Bld) [Volume fraction]on 52-25-6847Guselaovll (Bld) [Volume fraction]Hematocrit [Volume Fraction] of Blood by Automated count42.0-54.0[facility] MiamisburgHemoglobin [Mass/volume] in Bloodon 44-63-3724Afdcdlxqlf (Bld) [Mass/Vol] Hemoglobin [Mass/volume] in Blood14.0-18.0[facility] Laboratory - Chemistry and Chemistry - challengeon 02-12-5460Jsvsous [Mass/Vol] 3.5 g/dL3.4-5.0[facility]amisburgALP [Catalytic activity/Vol]77 U/Z90-419MfkvvishhKettering Health MiamisburgALT [Catalytic activity/Vol]24 U/L 16-63[facility]amisburgAST [Catalytic activity/Vol]20 U/L15-37 [facility]amisburgBilirubin [Mass/Vol]0.5 mg/dL0.2-1.0[facility]amisburgCalcium [Mass/Vol]8.9 mg/dL8.5-10.1FKnox Community HospitalChloride [Moles/Vol]104 mmol/C70-319AaygfflwiKettering Health MiamisburgCO2 [Moles/Vol]28.2 mmol/L21.0-32.0[facility] Creatinine [Mass/Vol]1.29 mg/dL0.70-1.30[facility] GFR/1.73 sq M.predicted MDRD (S/P/Bld) [Vol rate/Area]mL/min/{1.73_m2}>=60 mL/min/1.73m 2FKnox Community HospitalGlucose [Mass/Vol]107 mg/dLHigh 74-106[facility] MiamisburgNatriuretic peptide B (Bld) [Mass/Vol] 144.0 pg/mL<=1800.0[facility]amisburgPotassium [Moles/Vol]4.6 mmol/L3.5-5.1FKnox Community HospitalProtein [Mass/Vol]6.7 g/dL6.4-8.2 [facility] Hospitalodium [Moles/Vol]139 mmol/K915-928JlcossocwKettering Health MiamisburgUrea nitrogen [Mass/Vol]19.0 mg/dLHigh7.0-18.0[facility] MiamisburgUrea nitrogen/Creatinine [Mass ratio]14.7 mg/mgKettering Health MiamisburgLaboratory - Hematology and Cell countson 07-27-2024 Immature granulocytes/100 WBC (Bld)0.2 %0.0-0.5FKnox Community Hospital Leukocytes [#/volume] corrected for nucleated erythrocytes in Blood by Automated counon 22-33-2952YTS corrected for nucl RBC Auto (Bld) [#/Vol]Leukocytes [#/volume] corrected for nucleated erythrocytes in Blood by Automated counHigh 4.0-11.0[facility] MiamisburgLymphocytes Auto (Bld) [#/Vol]on 30-05-6094Xwszjckvtqc (Bld) [#/Vol]Lymphocytes [#/volume] in Blood by Automated count1.2-3.8[facility] MiamisburgLymphocytes/100 WBC Auto (Bld)on 90-60-6265Itrmrguxibr/100 WBC (Bld)Lymphocytes/100 leukocytes in Blood by Automated vxgapIry69.5-60.0[facility]H Auto (RBC) [Entitic mass]on 97-57-5993TJU (RBC) [Entitic mass]MCH [Entitic mass] by Automated count25.9-34.0[facility] MiamisburgMCHC Auto (RBC) [Mass/Vol]on 90-23-0421GMEM (RBC) [Mass/Vol]MCHC [Mass/volume] by Automated count29.9-35.2FKnox Community HospitalMCV Auto (RBC) [Entitic vol]on 79-95-2603OYL (RBC) [Entitic vol]MCV [Entitic volume] by Automated count 80.0-94.0[facility] MiamisburgMonocytes Auto (Bld) [#/Vol]on 44-74-6262Aiuvrbhnc (Bld) [#/Vol]Automated blood monocyte countHigh0.3-0.8 [facility]amisburgMonocytes/100 WBC Auto (Bld)on 07-27-2024 Monocytes/100 WBC (Bld)Automated monocyte %1.7-12.0[facility] MiamisburgNeutrophils Auto (Bld) [#/Vol]on 75-08-0891Vajcbrtjvna (Bld) [#/Vol] Neutrophils [#/volume] in Blood by Automated countHigh1.4-6.5FKnox Community HospitalNeutrophils/100 WBC Auto (Bld)on 25-19-8132Klgomgjazkl/100 WBC (Bld)Automated neutrophil %43.0-75.0[facility]amisburgNo Panel Informationon 68-34-7020Ojksggwgvci # (Auto)0.1 10 3/uL0.0-0.7FKnox Community HospitalImmature Granulocyte # (Auto)0.02 10 3/uL0.00-0.03[facility] MiamisburgTroponin I High Sensitivity8.6 pg/mL4.0-76.1FKnox Community HospitalComment on above:CUT-OFF POINTS HAVE BEEN ESTABLISHED BASED ON THE FOURTHUNIVERSAL DEFINITION OF MYOCARDIAL INFARCTION. THE UPPERREFERENCE LIMIT (URL) OF TROPONIN, DEFINED THE 99THPERCENTILE OF cTnI DISTRIBUTION IN A REFERENCE POPULATION,HAS BEEN CONFIRMED THE DECISION THRESHOLD FOR MIDIAGNOSIS.99TH PERCENTILE = 76.2 PG/MLNOTE: HIGH-SENSITIVITY TROPONIN ASSAY IS NOT INTENDED TO BEUSED IN ISOLATION BUT SHOULD BE INTERPRETED IN CONJUNCTIONWITH OTHER DIAGNOSTIC AND CLINICAL INFORMATION.Platelet mean volume Auto (Bld) [Entitic vol]on 71-03-9338Gzmqjurt mean volume (Bld) [Entitic vol]Platelet mean volume [Entitic volume] in Blood by Automated count9.5-13.5 [facility] MiamisburgPlatelets Auto (Bld) [#/Vol]on 07-27-2024 Platelets (Bld) [#/Vol]Platelets [#/volume] in Blood by Automated wrwxo586-585 [facility] MiamisburgRBC Auto (Bld) [#/Vol]on 07-29-2173SKB (Bld) [#/Vol]Erythrocytes [#/volume] in Blood by Automated count4.70-6.10[facility] Hospitalerum or plasma albumin/globulin mass ratioon 07-27-2024 Albumin/Globulin [Mass ratio]Serum or plasma albumin/globulin mass ratio [facility] Hospitalerum or plasma anion gap determinationon 92-08-5599Doeal gap [Moles/Vol]Serum or plasma anion gap determinationKettering Health MiamisburgEstimated glomerular filtration rate (GFR) non- Americanon 23-55-1136EXO/1.73 sq M.predicted among non-blacks MDRD (S/P/Bld) [Vol rate/Area]Estimated glomerular filtration rate (GFR) non- >=60 mL/min/1.73m 2FKnox Community HospitalLaboratory - Chemistry and Chemistry - challengeon 15-57-0702RBR [Catalytic activity/Vol]15 U/L15-37 [facility] MiamisburgCalcium [Mass/Vol]8.9 mg/dL8.5-10.1FKnox Community HospitalChloride [Moles/Vol]105 mmol/Q21-205QmdbtvouuKettering Health MiamisburgCO2 [Moles/Vol]29.4 mmol/L21.0-32.0[facility] MiamisburgCreatinine [Mass/Vol]1.01 mg/dL0.70-1.30[facility] GFR/1.73 sq M.predicted MDRD (S/P/Bld) [Vol rate/Area]mL/min/{1.73_m2}>=60 mL/min/1.[address]m [address] [place], [place] [address]Glucose [Mass/Vol]100 mg/hC66-361 [facility] MiamisburgPotassium [Moles/Vol]4.3 mmol/L3.5-5.1FKeenan Private Hospitalodium [Moles/Vol]140 mmol/H951-382AuffhytwuKettering Health MiamisburgTSH Qn1.223 m[IU]/L0.358-3.740[facility] Urea nitrogen [Mass/Vol]18.0 mg/dL7.0-18.0[facility] MiamisburgUrea nitrogen/Creatinine [Mass ratio]17.8 mg/mgMercy Health West Hospitalerum or plasma anion gap determinationon 82-32-6146Rosjp gap [Moles/Vol]Serum or plasma anion gap determinationKettering Health MiamisburgECG 12 Leadon 52-54-0362Hlllr bradycardia, inferior DE age undetermined, abnormal ECGCPACS [facility] Work Phone: no Panel Informationon 04-12-8284Altpion obtained: written (The rationale for Mohs as well as the risks, benefits, and alternatives. The risks of infection, scarring, bleeding, prolonged wound healing, incomplete removal, allergy to anesthesia or meds, nerve injury, and recurrence were addressed.) [place] Protocol: Procedure explained and questions answered to [...] sodium bicarbonate Procedure Details: Biopsy accession number: [id number] Biopsy lab: [facility][1] Date of biopsy: 05/21/2024 Frozen section biopsy [...] blocks: 0. Tumor free (more content not included)...[facility]OM[facility] HealthcareNo Panel InformationOrdered By: Aniya Meyer on 82-01-3264RGGM HealthcareNo Panel Informationon 54-06-3660Dlhs of biopsy: tangential Informed consent: discussed and [...] Photo taken Amount of lidocaine used: 1.0 [facility] Basophils Auto (Bld) [#/Vol]on 95-62-6268Mhqcavosv (Bld) [#/Vol]Automated basophil count0.0-0.1FKnox Community HospitalBasophils/100 WBC Auto (Bld)on 71-21-9798Qejrcqtyu/100 WBC (Bld)Automated basophil %0.2-2.0[facility]amisburgEosinophils/100 WBC Auto (Bld)on 04-11-2024 Eosinophils/100 WBC (Bld)Automated eosinophil %0.9-7.0[facility] MiamisburgErythrocyte distribution width Auto (RBC) [Ratio]on 73-78-1646Gluzntfzetq distribution width (RBC) [Ratio]Erythrocyte distribution width [Ratio] by Automated count11.0-15.0[facility] MiamisburgHematocrit Auto (Bld) [Volume fraction]on 55-36-5845Edppqsdjll (Bld) [Volume fraction]Hematocrit [Volume Fraction] of Blood by Automated count42.0-54.0[facility] MiamisburgHemoglobin [Mass/volume] in Bloodon 33-15-1698Ahejhoebfu (Bld) [Mass/Vol] Hemoglobin [Mass/volume] in Blood14.0-18.0[facility] MiamisburgIron binding capacity [Mass/volume] in Serum or Plasmaon 48-21-9541Hakx binding capacity [Mass/Vol]Iron binding capacity [Mass/volume] in Serum or Plasma 250.0-450.0[facility] MiamisburgIron saturation [Mass Fraction] in Serum or Plasmaon 52-68-6589Jaxt saturation [Mass fraction]Iron saturation [Mass Fraction] in Serum or PlasmaKettering Health MiamisburgLaboratory - Chemistry and Chemistry - challengeon 41-72-6219Uynwhmox [Mass/Vol]88.0 ng/mL 26.0-388.0[facility] MiamisburgIron [Mass/Vol]77.0 ug/dL65.0-175.0 [facility] MiamisburgLaboratory - Hematology and Cell countson 93-20-6086Hhtisili granulocytes/100 WBC (Bld)0.2 %0.0-0.5FKnox Community HospitalLeukocytes [#/volume] corrected for nucleated erythrocytes in Blood by Automated counon 51-77-1215GQY corrected for nucl RBC Auto (Bld) [#/Vol]Leukocytes [#/volume] corrected for nucleated erythrocytes in Blood by Automated coun4.0-11.0[facility] MiamisburgLymphocytes Auto (Bld) [#/Vol]on 78-10-9332Giudeghiwvu (Bld) [#/Vol]Lymphocytes [#/volume] in Blood by Automated count1.2-3.8[facility] MiamisburgLymphocytes/100 WBC Auto (Bld)on 55-93-6726Dbwnjjsdyyu/100 WBC (Bld)Lymphocytes/100 leukocytes in Blood by Automated hzjahLti33.5-60.0[facility] SouthH Auto (RBC) [Entitic mass]on 41-51-3159WRF (RBC) [Entitic mass]MCH [Entitic mass] by Automated count25.9-34.0[facility] SouthHC Auto (RBC) [Mass/Vol]on 32-63-6945UEMQ (RBC) [Mass/Vol]MCHC [Mass/volume] by Automated count29.9-35.2FKettering HealthV Auto (RBC) [Entitic vol]on 56-27-6290MJZ (RBC) [Entitic vol]MCV [Entitic volume] by Automated countHigh 80.0-94.0[facility] MiamisburgMonocytes Auto (Bld) [#/Vol]on 37-08-8844Gbsrmzxsp (Bld) [#/Vol]Automated blood monocyte countHigh0.3-0.8 [facility] MiamisburgMonocytes/100 WBC Auto (Bld)on 04-11-2024 Monocytes/100 WBC (Bld)Automated monocyte %1.7-12.0[facility] MiamisburgNeutrophils Auto (Bld) [#/Vol]on 66-70-5855Pgjkslafofc (Bld) [#/Vol] Neutrophils [#/volume] in Blood by Automated countHigh1.4-6.5FKnox Community HospitalNeutrophils/100 WBC Auto (Bld)on 31-24-8007Phvcmicvzar/100 WBC (Bld)Automated neutrophil %43.0-75.0[facility]amisburgNo Panel Informationon 87-39-5351Kebijzfmwwv # (Auto)0.1 10 3/uL0.0-0.7FKnox Community HospitalImmature Granulocyte # (Auto)0.02 10 3/uL0.00-0.03[facility] MiamisburgPlatelet mean volume Auto (Bld) [Entitic vol]on 42-86-0748Hfowhnlx mean volume (Bld) [Entitic vol]Platelet mean volume [Entitic volume] in Blood by Automated count9.5-13.5FKnox Community Hospital Platelets Auto (Bld) [#/Vol]on 36-48-9672Cvbrxuszm (Bld) [#/Vol]Platelets [#/volume] in Blood by Automated -061CbkzgvnzoKettering Health Miamisburg RBC Auto (Bld) [#/Vol]on 63-86-6077LDI (Bld) [#/Vol]Erythrocytes [#/volume] in Blood by Automated count4.70-6.10[facility]amisburgNo Panel Informationon 24-31-0819JZIQ HealthcareNUCLEAR STRESS TESTon 60-06-1522TNFJUCD STRESS TESTInterpreted By: Rose Green and Giannuzzi Michael STUDY: MYOCARDIAL PERFUSION STRESS TEST WITH EXERCISE Performing facility: [facility], [address], [address], [place] [address] [facility] Provider: August Baron DO, FACC PCP: Dr. [...] 2014,2015, 2020. COMPARISON: Previous nuclear testing completed [id number] at [place]. ACCESSION NUMBER(S): [id number] ORDERING CLINICIAN: BRENDON BARON TECHNIQUE: ONE DAY [...] Rose Green 01/04/2024 4:22 PM Dictation workstation: [id number] Hospitals Geneva [facility] ECG 12 Leadon 46-13-9590Mxmxo bradycardia, first-degree AV block, low voltage, abnormal ECGUnPremier Health Upper Valley Medical Center Work Phone: UnPremier Health Upper [facility] Work Phone: basophils Auto (Bld) [#/Vol]on 54-07-5708Ftbyuwvuk (Bld) [#/Vol]0.0 10 3/uL0.0-0.1FKnox Community HospitalBasophils/100 WBC Auto (Bld)on 56-72-1346Gqimbnktt/100 WBC (Bld)0.3 %0.2-2.0[facility]amisburgEosinophils/100 WBC Auto (Bld)on 49-68-4699Oklxsyimspt/100 WBC (Bld)1.0 %0.9-7.0[facility] MiamisburgErythrocyte distribution width Auto (RBC) [Ratio]on 19-70-7582Gkbvlzrbnxs distribution width (RBC) [Ratio]22.2 %High11.0-15.0[facility] MiamisburgEstimated glomerular filtration rate (GFR) non- Americanon 30-04-0847JRS/1.73 sq M.predicted among non- blacks MDRD (S/P/Bld) [Vol rate/Area]mL/min/{1.73_m2}>=60[facility] MiamisburgFibrin D-dimer [Presence] in Platelet poor plasma by Latex agglutinationon 73-36-8380Fmcpnu D-dimer LA Ql (PPP)<0.19 mg/L FEU<=0.59 [facility] MiamisburgComment on above:Increases in D-Dimer concentration observed withthromboembolic events can be variable due to localiz ation,size, and age of the thrombus. Therefore, a thromboembolicevent cannot be diagnosed with certainty on the basis of thereference range. D-Dimers may also be elevated for a varietyof disorders including advanced age, , coronarydisease, cancer, liver disease, infection, inflammation,hematoma, DIC, trauma, post-surgery, diabetes, thrombolyticor anticoagulant therapy, stress, and generalizedhospitalization.Hematocrit Auto (Bld) [Volume fraction]on 19-23-5700Dprvvjaana (Bld) [Volume fraction]47.6 %42.0-54.0[facility] MiamisburgHemoglobin [Mass/volume] in Bloodon 13-18-7736Mlguqvdwsh (Bld) [Mass/Vol]15.6 g/dL14.0-18.0[facility] MiamisburgLaboratory - Chemistry and Chemistry - challengeon 92-85-8177Alkdqub [Mass/Vol]9.0 mg/dL 8.5-10.1FKnox Community HospitalChloride [Moles/Vol]105 mmol/L98-107 [facility] MiamisburgCO2 [Moles/Vol]27.8 mmol/L21.0-32.0[facility] MiamisburgCreatinine [Mass/Vol]1.12 mg/dL0.70-1.30[facility] MiamisburgGFR/1.73 sq M.predicted MDRD (S/P/Bld) [Vol rate/Area] mL/min/{1.73_m2}>=60[facility] MiamisburgGlucose [Mass/Vol]174 mg/dL Wyyr22-115XwkgqhqhfKettering Health MiamisburgNatriuretic peptide B (Bld) [Mass/Vol]129.0 pg/mL<=1800.0[facility] MiamisburgPotassium [Moles/Vol]4.0 mmol/L3.5-5.1FKeenan Private Hospitalodium [Moles/Vol] 139 mmol/S360-660EigztyigeKettering Health MiamisburgUrea nitrogen [Mass/Vol]20.0 mg/dLHigh7.0-18.0[facility] MiamisburgUrea nitrogen/Creatinine [Mass ratio]17.9 mg/mgKettering Health MiamisburgLaboratory - Hematology and Cell countson 05-52-9448Sogkmmmh granulocytes/100 WBC (Bld)0.1 %0.0-0.5FKnox Community HospitalLeukocytes [#/volume] corrected for nucleated erythrocytes in Blood by Automated counon 39-39-4234NZP corrected for nucl RBC Auto (Bld) [#/Vol]8.8 10 3/uL4.0-11.0[facility] Lymphocytes Auto (Bld) [#/Vol]on 44-03-2461Hoobrgsrsmz (Bld) [#/Vol]2.4 10 3/uL 1.2-3.8[facility] MiamisburgLymphocytes/100 WBC Auto (Bld)on 12-01-2355Izmxuzwtqrg/100 WBC (Bld)27.3 %20.5-60.0[facility]H Auto (RBC) [Entitic mass]on 28-02-0780APS (RBC) [Entitic mass]28.7 pg 25.9-34.0[facility] SouthHC Auto (RBC) [Mass/Vol]on 85-55-0135KOQJ (RBC) [Mass/Vol]32.8 g/dL29.9-35.2FKnox Community HospitalMCV Auto (RBC) [Entitic vol]on 71-06-9934DEW (RBC) [Entitic vol]87.7 fL 80.0-94.0[facility] MiamisburgMonocytes Auto (Bld) [#/Vol]on 47-54-7733Ctynkvxcw (Bld) [#/Vol]0.8 10 3/uL0.3-0.8[facility] MiamisburgMonocytes/100 WBC Auto (Bld)on 94-74-0454Yhkuobhdn/100 WBC (Bld)9.0 % 1.7-12.0[facility] MiamisburgNeutrophils Auto (Bld) [#/Vol]on 95-21-6133Vqjznhspcyo (Bld) [#/Vol]5.5 10 3/uL1.4-6.5FKnox Community HospitalNeutrophils/100 WBC Auto (Bld)on 25-92-0692Xxbleahztrz/100 WBC (Bld)62.3 % 43.0-75.0[facility] MiamisburgNo Panel Informationon 12-16-2023 Eosinophils # (Auto)0.1 10 3/uL0.0-0.7FKnox Community HospitalImmature Granulocyte # (Auto)0.01 10 3/uL0.00-0.03[facility] Troponin I High Sensitivity7.3 pg/mL4.0-76.1FKnox Community Hospital Comment on above:CUT-OFF POINTS HAVE BEEN ESTABLISHED BASED ON THE FOURTHUNIVERSAL DEFINITION OF MYOCARDIAL INFARCTION. THE UPPERREFERENCE LIMIT (URL) OF TROPONIN, DEFINED THE 99THPERCENTILE OF cTnI DISTRIBUTION IN A REFERENCE POPULATION,HAS BEEN CONFIRMED THE DECISION THRESHOLD FOR MIDIAGNOSIS.99TH PERCENTILE = 76.2 PG/MLNOTE: HIGH-SENSITIVITY TROPONIN ASSAY IS NOT INTENDED TO BEUSED IN ISOLATION BUT SHOULD BE INTERPRETED IN CONJUNCTIONWITH OTHER DIAGNOSTIC AND CLINICAL INFORMATION.Platelet mean volume Auto (Bld) [Entitic vol]on 80-93-7126Jqkxubtb mean volume (Bld) [Entitic vol]9.8 fL9.5-13.5FKnox Community HospitalPlatelets Auto (Bld) [#/Vol]on 07-58-0210Naeqtbqgp (Bld) [#/Vol]178 10 3/zH482-659YmkyfqjecKettering Health MiamisburgRBC Auto (Bld) [#/Vol]on 15-03-9092BOM (Bld) [#/Vol]5.43 10 6/uL4.70-6.10 [facility] Hospitalerum or plasma anion gap determinationon 03-44-0393Ajthp gap [Moles/Vol]10.2 mmol/LFKnox Community Hospital Basophils Auto (Bld) [#/Vol]on 71-18-3759Qmosmntmt (Bld) [#/Vol]0.0 10 3/uL 0.0-0.1FKnox Community HospitalBasophils/100 WBC Auto (Bld)on 72-01-9524Mowdguhup/100 WBC (Bld)0.6 %0.2-2.0[facility] Eosinophils/100 WBC Auto (Bld)on 82-05-5595Sasfyjwgztz/100 WBC (Bld)2.6 %0.9-7.0 [facility] MiamisburgErythrocyte distribution width Auto (RBC) [Ratio]on 85-89-2595Yfdjeuamtxg distribution width (RBC) [Ratio]24.3 %High 11.0-15.0[facility] MiamisburgFerritin [Mass/volume] in Serum or PlasmaOrdered By: Miriam Juarez on 25-77-6392Nviykibl [Mass/Vol]146.7 ng/mL Klftay28.9-336.2FKnox Community HospitalComment on above:Result Comment: PERFORMED BY: [facility] [address] [place] [address] PATHOLOGIST DESTINATION SIGN REPAIRER GABINO ARCOS M.D.Performed By: #### DAVIDE #### [facility] [address] [place] [address] USAHematocrit Auto (Bld) [Volume fraction]on 11-22-2023 Hematocrit (Bld) [Volume fraction]47.9 %42.0-54.0[facility] MiamisburgHemoglobin [Mass/volume] in Bloodon 18-10-3570Muubjtanbd (Bld) [Mass/Vol] 15.3 g/dL14.0-18.0[facility] MiamisburgIron binding capacity [Mass/volume] in Serum or Plasmaon 95-31-1702Jgxe binding capacity [Mass/Vol] 293.0 ug/dL250.0-450.0[facility] MiamisburgIron saturation [Mass Fraction] in Serum or Plasmaon 45-66-3912Oydd saturation [Mass fraction]28.3 % [facility] MiamisburgLaboratory - Chemistry and Chemistry - challengeon 83-46-6864Otrl [Mass/Vol]83.0 ug/dL65.0-175.0[facility] MiamisburgLaboratory - Hematology and Cell countson 45-62-5832Ezkvxpqc granulocytes/100 WBC (Bld)0.3 %0.0-0.5FKnox Community Hospital Leukocytes [#/volume] corrected for nucleated erythrocytes in Blood by Automated counon 55-27-2036UEV corrected for nucl RBC Auto (Bld) [#/Vol]7.2 10 3/uL 4.0-11.0[facility] MiamisburgLymphocytes Auto (Bld) [#/Vol]on 12-87-2512Nhkagmmvnkr (Bld) [#/Vol]1.8 10 3/uL1.2-3.8[facility] MiamisburgLymphocytes/100 WBC Auto (Bld)on 39-80-9241Ecqacirgqxi/100 WBC (Bld)25.3 % 20.5-60.0[facility]H Auto (RBC) [Entitic mass]on 92-38-6089QGY (RBC) [Entitic mass]27.8 pg25.9-34.0[facility] MiamisburgMCHC Auto (RBC) [Mass/Vol]on 87-63-2936BYUJ (RBC) [Mass/Vol]31.9 g/dL 29.9-35.2FKnox Community HospitalMCV Auto (RBC) [Entitic vol]on 22-78-4514YOA (RBC) [Entitic vol]86.9 fL80.0-94.0[facility] MiamisburgMonocytes Auto (Bld) [#/Vol]on 51-07-8081Jvnkakedx (Bld) [#/Vol]0.9 10 3/uLHigh0.3-0.8[facility] MiamisburgMonocytes/100 WBC Auto (Bld)on 06-89-4229Sbwidqtbv/100 WBC (Bld)12.3 %High1.7-12.0[facility] MiamisburgNeutrophils Auto (Bld) [#/Vol]on 72-02-7378Pfsahlqrlfc (Bld) [#/Vol]4.3 10 3/uL1.4-6.5FKnox Community HospitalNeutrophils/100 WBC Auto (Bld)on 97-28-0136Pavkpxrrzyx/100 WBC (Bld)58.9 %43.0-75.0[facility] MiamisburgNo Panel Informationon 53-11-0599Tzkfbooxhtw # (Auto)0.2 10 3/uL0.0-0.7 [facility] MiamisburgImmature Granulocyte # (Auto)0.02 10 3/uL 0.00-0.03[facility] MiamisburgPlatelet mean volume Auto (Bld) [Entitic vol]on 37-18-9254Qxbwkyfg mean volume (Bld) [Entitic vol]9.7 fL9.5-13.5 [facility] MiamisburgPlatelets Auto (Bld) [#/Vol]on 11-22-2023 Platelets (Bld) [#/Vol]184 10 3/kU776-071BhsooxovgKettering Health MiamisburgRBC Auto (Bld) [#/Vol]on 09-79-4131COD (Bld) [#/Vol]5.51 10 6/uL4.70-6.10[facility] Health MiamisburgLon 19-32-2566OTwxoqitj: [id number] Received: 10/26/23 Status: ANSHUL Zarate Num: [id number] Spec Type: Surgical Subm Dr: Colleen Ochoa MD Tissues: A Colon Biopsy (RANDOM COLON BX) B Colon Biopsy (RECTAL POLYPS) Procedures: HE/4, Gross/Micro L4/2 Age/ Patient Sex Location Account Attending Physician Valentín Buckner 83/M [id number] Colleen Ochoa MD SPEC NUM: [id number] RECD: 10/26/23 STATUS: ANSHUL ZARATE NUM: [id number] MODESTA: 10/26/23- SUBM DR: Colleen Ochoa MD ENTERED: 10/26/[address] [facility] DR: SPEC TYPE: Surgical DEPT: S ORDERED: [...] history: Loose stools. Rule out microscopic colitis Specimen: [id number] Received: 10/26/23 Status: ANSHUL Zarate Num: [id number] Spec Type: Surgical Subm Dr: Colleen Ochoa MD Tissues: A Colon Biopsy (RANDOM COLON BX) B Colon Biopsy (RECTAL POLYPS) Procedures: HE/Silver, Gross/Micro L4/2 Patient: Valentín Buckner [id number] (Continued) Specimen: [id number] Received: 10/26/23 (Continued) Signed (signature on file) Kika Jade MD 10/27/231126 Specimen: [id number] Received: 10/26/23 Status: ANSHUL Zarate Num: [id number] Spec Type: Surgical Subm Dr: Colleen Ochoa MD Tissues: A Colon Biopsy (RANDOM COLON BX) B Colon Biopsy (RECTAL POLYPS) Procedures: HE/4, Gross/Micro L4/2 Patient: Valentín Buckner [id number] (Continued) Specimen: [id number] Received: 10/26/23 (Continued) CPT Codes 09122v9 Specimen: [id number] Received: 10/26/23 Status: ANSHUL Zarate Num: [id number] Spec Type: Surgical Subm Dr: Colleen Ochoa MD Tissues: A Colon Biopsy (RANDOM COLON BX) B Colon Biopsy (RECTAL POLYPS) Procedures: HE/4, Gross/Micro L4/2 Patient: Valentín Buckner [id number] (Continued) Signed (signature on file) Kika Jade MD 10/27/231126 [facility] Physician GroupElastase.pancreatic [Mass/mass] in Stoolon [id number].pancreatic (Stl) [Mass/Mass]242>200[facility]burgComment on above:Result Units: ug Elast./g Severe Pancreatic Insufficiency: <100 Moderate Pancreatic Insufficiency: 100 - 200 Normal: >200Performed at: - [facility] [id number] Director: Christophe Matthew MD, Phone: [phone] 1 and HIV-2 antibody assay with HIV-1 p24 antigen detectionon [id number] 1+2 Ab+HIV1 p24 Ag IA Ql Non-ReactiveNon ReactiveKettering Health MiamisburgComment on above:HIV NegativeHIV-1/HIV-2 antibodies and HIV-1 p24 antigen were NOTdetected. There is no laboratory evidence of HIV infection.Performed at: [facility] [id number] Director: Terell Silva PhD, Phone: [phone] [Mass/volume] in Serum or Plasmaon [id number] [Mass/Vol]150 mg/vE42-858SapsnrmytKettering Health MiamisburgComment on above:Performed at: [address] [id number] Director: Terell Silva PhD, Phone: [phone] - Chemistry and Chemistry - challenge on 15-47-3472YIX Qn1.511 m[IU]/L0.358-3.740[facility] Laboratory - Hematology and Cell countson 93-00-6167JJU (Bld) [Velocity]12 mm/h <=20[facility]amisburgNo Panel Informationon 12-13-7131F-Reactive Protein, Quantitative<0.50 mg/dL<=0.50[facility] Endomysial IgA AntibodyNegativeNegativeK[facility] Health [facility] Clostridium difficile (PCR)(LAB)NegativeNEGATIVEKettering Health MiamisburgMiscellaneous Test CommentSee commentKettering Health Miamisburg Comment on above:Specimen Source: [facility] Stool - 700.100Ova & Parasite Result 1Comment.[facility] MiamisburgComment on above:No ova, cysts, or parasites seen.One negative specimen does not rule out the possibility ofa parasitic infection.Performed at: [facility] [address] [id number] Director: Terell Silva PhD, Phone: [phone] and Parasites (LAB)Final report.[facility] MiamisburgComment on above: These results were obtained using wet preparation(s) andtrichrome stained smear. This test does notinclude testingfor Cryptosporidium parvum, Cyclospora, or Microsporidia.Stool Zmxqtcueqnef785 ug/g0-120[facility] Comment on above:Concentration Interpretation Follow-Up< 5 - 50 ug/g Normal None>50 -120 ug/g Borderline Re-evaluate in 4-6 weeks >120 ug/g Abnormal Repeat as clinically indicatedPerformed at: - [facility] [address] [place], [place] [id number] Director: Christophe Matthew MD, Phone: [phone] Campylobacter Culture Res 1See commentKettering Health MiamisburgComment on above:[facility],No Panel InformationOrdered By: Imad Asaad on 10-20-2023E coli Shiga Toxin EIAMercy Health West Hospitalalmonella/Shigella Screen [facility] Hospitalerum gliadin peptide IgA antibody assay (units/volume)on 88-53-3356Nnoswfb peptide IgA Qn (S)3 units0-[facility] MiamisburgComment on above:Negative 0 - 19 Weak Positive 20 - 30 Moderate to Strong Positive >30Serum gliadin peptide IgG antibody assay (units/volume)on 81-54-4218Lhqgafw peptide IgG Qn (S)2 units0-[facility] MiamisburgComment on above:Negative 0 - 19 Weak Positive 20 - 30 Moderate to Strong Positive >30Serum tissue transglutaminase (tTG) IgA antibody assay (units/volume)on 38-71-8031nSU IgA Qn (S)<2 U/mL0-3FKnox Community HospitalComment on above:Negative 0 - 3 Weak Positive 4 - 10 Positive >10 Tissue Transglutaminase (tTG) has been identified as the endomysial antigen. Studies have demonstr- ated that endomysial IgA antibodies have over 99% specificity for gluten sensitive enteropathy.Serum tissue transglutaminase (tTG) IgG antibody assay (units/volume)on 78-41-6680zBD IgG Qn (S)3 U/mL0-5FKnox Community HospitalComment on above:Negative 0 - 5 Weak Positive 6 - 9 Positive >9Albumin [Mass/volume] in Serum or Plasmaon 92-70-9911Zknfvzb [Mass/Vol]4.0 g/dL2.9-4.4FKnox Community HospitalBasophils Auto (Bld) [#/Vol]on 43-92-0268Ieadljfgf (Bld) [#/Vol]0.0 10 3/uL0.0-0.1FKnox Community HospitalBasophils/100 WBC Auto (Bld)on 17-61-2386Cjpyskkmn/100 WBC (Bld) 0.4 %0.2-2.0[facility]amisburgEosinophils/100 WBC Auto (Bld)on 73-31-5718Eumgvzhlamj/100 WBC (Bld)2.9 %0.9-7.0[facility] Erythrocyte distribution width Auto (RBC) [Ratio]on 23-10-8896Vdewxtgvtvl distribution width (RBC) [Ratio]22.1 %11.0-15.0[facility] Hematocrit Auto (Bld) [Volume fraction]on 44-73-7801Miabrwxrno (Bld) [Volume fraction]43.4 %42.0-54.0[facility] MiamisburgHemoglobin [Mass/volume] in Bloodon 91-51-4979Zkingoxhjf (Bld) [Mass/Vol]13.1 g/dL14.0-18.0 [facility]amisburgIgA [Mass/volume] in Serum or Plasmaon 74-53-6084DvC [Mass/Vol]151 mg/cM92-519CnokblrhsKettering Health MiamisburgIgG [Mass/volume] in Serum or Plasmaon 73-30-0818EyM [Mass/Vol]911 mg/aN810-4196 [facility] MiamisburgIgM [Mass/volume] in Serum or Plasmaon 12-18-7036IbL [Mass/Vol]53 mg/aW66-937VeutoilrwKettering Health MiamisburgIron binding capacity [Mass/volume] in Serum or Plasmaon 95-77-5360Xvpu binding capacity [Mass/Vol]411.0 ug/dL250.0-450.0[facility] MiamisburgIron saturation [Mass Fraction] in Serum or Plasmaon 42-72-2539Ssbj saturation [Mass fraction]11.2 %[facility]amisburgLaboratory - Chemistry and Chemistry - challengeon 22-60-5977Jxnxgnki [Mass/Vol]13.0 ng/mL26.0-388.0 [facility] MiamisburgIron [Mass/Vol]46.0 ug/dL65.0-175.0[facility] MiamisburgLaboratory - Hematology and Cell countson 2023 Immature granulocytes/100 WBC (Bld)0.1 %0.0-0.5FKnox Community Hospital Leukocytes [#/volume] corrected for nucleated erythrocytes in Blood by Automated counon 21-80-1136UPX corrected for nucl RBC Auto (Bld) [#/Vol]8.0 10 3/uL 4.0-11.0[facility] MiamisburgLymphocytes Auto (Bld) [#/Vol]on 85-73-3743Oxzqoeqkwwm (Bld) [#/Vol]2.2 10 3/uL1.2-3.8[facility] MiamisburgLymphocytes/100 WBC Auto (Bld)on 65-28-9270Dnvhcgysrha/100 WBC (Bld)27.5 % 20.5-60.0[facility] SouthH Auto (RBC) [Entitic mass]on 55-20-5704OVX (RBC) [Entitic mass]25.0 pg25.9-34.0[facility] MiamisburgMCHC Auto (RBC) [Mass/Vol]on 57-32-1268OKOB (RBC) [Mass/Vol]30.2 g/dL 29.9-35.2FKnox Community HospitalMCV Auto (RBC) [Entitic vol]on 85-53-3189YTE (RBC) [Entitic vol]83.0 fL80.0-94.0[facility] MiamisburgMonocytes Auto (Bld) [#/Vol]on 02-34-3549Afgzwnvfo (Bld) [#/Vol]1.0 10 3/uL0.3-0.8[facility] MiamisburgMonocytes/100 WBC Auto (Bld)on 26-00-6754Grfbaaptu/100 WBC (Bld)12.1 %1.7-12.0[facility] Neutrophils Auto (Bld) [#/Vol]on 87-35-3854Omsipybiolg (Bld) [#/Vol]4.5 10 3/uL 1.4-6.5FKnox Community HospitalNeutrophils/100 WBC Auto (Bld)on 88-32-5712Jvzcuzoovbw/100 WBC (Bld)57.0 %43.0-75.0[facility]burgNo Panel Informationon 55-97-7076Ldfizmfrcxy # (Auto)0.2 10 3/uL0.0-0.7 [facility] MiamisburgImmature Granulocyte # (Auto)0.01 10 3/uL 0.00-0.03[facility]amisburgProtein Electrophoresis M-SpikeNot Observed g/dLNot ObservedKettering Health MiamisburgProtein Electrophoresis NoteComment.[facility] MiamisburgComment on above: Protein electrophoresis scan will follow via computer,mail, or astro technician delivery.Performed at: [facility] [id number] Director: Terell Silva PhD, Phone: [phone] mean volume Auto (Bld) [Entitic vol]on 72-82-6911Tvkkryba mean volume (Bld) [Entitic vol]10.1 fL9.5-13.5FKnox Community HospitalPlatelets Auto (Bld) [#/Vol] on 63-24-6982Pfwtrhqik (Bld) [#/Vol]236 10 3/jY808-817KpguknbdpKettering Health MiamisburgProtein [Mass/volume] in Serum or Plasmaon 31-38-3591Xmcokka [Mass/Vol] 6.8 g/dL6.0-8.5FKnox Community HospitalRBC Auto (Bld) [#/Vol]on 39-81-3230NAW (Bld) [#/Vol]5.23 10 6/uL4.70-6.10[facility] Hospitalerum globulin measurement (mass/volume)on 96-50-8544Rrvhqgnh (S) [Mass/Vol]2.8 g/dL2.2-3.9[facility] Hospitalerum or plasma albumin/globulin mass ratioon 95-24-0163Ljrsjft/Globulin [Mass ratio]1.5 {ratio} 0.7-1.7FKeenan Private Hospitalerum or plasma alpha 1 globulin measurement by electrophoresis (mass/volume)on 08-15-8535Xeqdn 1 globulin Elph [Mass/Vol]0.3 g/dL0.0-0.4FKeenan Private Hospitalerum or plasma alpha 2 globulin measurement by electrophoresis (mass/volume)on 15-29-9747Flhyq 2 globulin Elph [Mass/Vol]0.7 g/dL0.4-1.0[facility] Hospitalerum or plasma beta globulin measurement by electrophoresis (mass/volume)on 2023 Beta globulin Elph [Mass/Vol]1.0 g/dL0.7-1.3FKnox Community Hospital Serum or plasma gamma globulin measurement by electrophoresis (mass/volume)on 95-07-6869Jveud globulin Elph [Mass/Vol]0.8 g/dL0.4-1.8[facility] Hospitalerum or plasma immunoelectrophoresis interpretationon 2023 Interpretation IEP [Interp]Comment.[facility] MiamisburgComment on above:No monoclonality detected.Aspartate aminotransferase [Enzymatic activity/volume] in Serum or PlasmaOrdered By: Florence Aden on 46-97-5829XCK [Catalytic activity/Vol]15 U/N89-22KapzdpcyxKettering Health MiamisburgCalcium [Mass/volume] in Serum or PlasmaOrdered By: Florence Aden on 61-10-6621Xplyyaa [Mass/Vol]8.7 mg/dL8.6-10.3FKnox Community HospitalCarbon dioxide, total [Moles/volume] in Serum or PlasmaOrdered By: Florence Aden on 70-10-1787EE2 [Moles/Vol]26.9 mmol/L21.0-31.0[facility] MiamisburgChloride [Moles/volume] in Serum or PlasmaOrdered By: Florence Aden on 67-24-3706Gvrirkvp [Moles/Vol]108 mmol/S97-909YmmevlcczKettering Health MiamisburgCreatinine [Mass/volume] in Serum or PlasmaOrdered By: Florence Aden on 93-18-6637Pqjemnsuha [Mass/Vol]1.11 mg/dL0.70-1.30[facility]amisburgGlucose [Mass/volume] in Serum or PlasmaOrdered By: Florence Aden on 36-17-7416Uuioosk [Mass/Vol]95 mg/aV21-121HlknoobxeKettering Health MiamisburgComment on above:ADA recommended reference rangeRandom Glucose Reference Range is dependent on time and content of last meal. Glucose of more than 200 mg/dL in a nonstressed, ambulatory subject supports the diagnosisof Diabetes Mellitus.No Panel InformationOrdered By: Florence Aden on 89-97-4473Yevhbzxar GFR (CKD-EPI)> 60.0 mL/MinKettering Health MiamisburgPharmacy Creatinine Clearance (ChemN/A [facility] MiamisburgPotassium [Moles/volume] in Serum or Plasma Ordered By: Florence Aden on 30-97-7658Ouvxxpvmd [Moles/Vol]4.4 mmol/L3.5-5.1 [facility] Hospitalerum or plasma anion gap determinationOrdered By: Florence Aden on 00-73-7438Pvepg gap [Moles/Vol]10.5 mmol/L6.0-15.0[facility] Hospitalodium [Moles/volume] in Serum or PlasmaOrdered By: Florence Aden on 75-75-7169Fddntr [Moles/Vol]141 mmol/E567-386SbkffovqlKettering Health MiamisburgThyrotropin [Units/volume] in Serum or PlasmaOrdered By: Florence Aden on 20-25-6225JHQ Qn2.16 m[IU]/L0.45-5.33[facility] Urea nitrogen [Mass/volume] in Serum or PlasmaOrdered By: Florence Aden on 46-63-9355Bqqc nitrogen [Mass/Vol]22 mg/dL7-25[facility] ECG 12 Leadon 60-68-5493Aovll bradycardia, first-degree AV blockUnPremier Health Upper Valley Medical Center Work Phone: UnPremier [facility] Work Phone: Office Visit (Cardiology)on 28-76-9893Pnuydb-up visit Diagnoses/Problems Assessed Hypertension, benign (401.1) (I10) [...] outside facility May 2021 NSTEMI admit at [facility] May 2021 cardiac cath: pLAD patent stent [...] in adult Healthy Weight Tips; Status:Complete; Done: 35Num2638 Patient Instructions Please bring all medicines, vitamins, [...] making process incorporating patients unique circumstances, the followingtreatment plan will be initiated: 1. Prescription drug [...] gait. Last evaluated in clinic by myself December2022. At that time, added amlodipine 2.5 mg [...] MG Oral Tablet Delayed ReleaseTAKE 1 TABLET Wtc-Gmw-Yoehby Atorvastatin Calcium 40 MG Oral TabletTAKE 1 [...] 07/01/2021 11:55:50 AM Social (more content not included)...NormalUH TouchworksAspartate aminotransferase [Enzymatic activity/volume] in Serum or PlasmaOrdered By: Alfred Baron on 88-43-5462KTA [Catalytic activity/Vol]13 U/I02-81AnwtfzkweKettering Health MiamisburgCalcium [Mass/volume] in Serum or PlasmaOrdered By: Alfred Baron on 98-99-1174Ppwhwem [Mass/Vol]8.5 mg/dL8.6-10.3FKnox Community Hospital Carbon dioxide, total [Moles/volume] in Serum or PlasmaOrdered By: Alfred Baron on 32-80-0856ZT1 [Moles/Vol]29.7 mmol/L21.0-31.0[facility] Chloride [Moles/volume] in Serum or PlasmaOrdered By: Alfred Baron on 03-21-2023 Chloride [Moles/Vol]107 mmol/R90-149IdfhoukeuKettering Health MiamisburgCreatinine [Mass/volume] in Serum or PlasmaOrdered By: Alfred Baron on 09-52-4162Mbmlofpujp [Mass/Vol]0.97 mg/dL0.70-1.30[facility] MiamisburgGlucose [Mass/volume] in Serum or PlasmaOrdered By: Alfred Baron on 10-07-7248Qggqemu [Mass/Vol]83 mg/kP17-259KaspbmljtKettering Health MiamisburgComment on above:ADA recommended reference rangeRandom Glucose Reference Range is dependent on time and content of last meal. Glucose of more than 200 mg/dL in a nonstressed, ambulatory subject supports the diagnosisof Diabetes Mellitus.No Panel InformationOrdered By: Alfred Baron on 43-38-2918Egsbeyhky GFR (CKD-EPI)> 60.0 mL/MinKettering Health MiamisburgPharmacy Creatinine Clearance (ChemN/A [facility]burgNo Panel Informationon 03-21-2023> 60.0Normal MP-[facility] [employer] [address] DO Work Phone: [phone]\S\7.3Hrmvdp3.0-15.0MP-[facility] [employer] [address] DO Work Phone: [phone]\S\8.5below low threshold8.6-10.3MP-[facility] [employer] [address] DO Work Phone: [phone]\S\29.8Vaitpk48.0-31.0MP-[facility] [address] DO Work Phone: [phone]\S\154Iietgy93-661WL-Xtznn [place] [facility]-[place] [address] DO Work Phone: [phone]\S\4.4Tzvlkr0.5-5.1MP-[facility] Heart-[place] [address] DO Work Phone: [phone]\S\695Sjnfbh058-329SD-Mvoeq [place] [facility]-[place] [address] DO Work Phone: [phone]\S\0.26Vfzqeu7.70-1.30MP-[facility]-[place] [address] DO Work Phone: [phone]\S\78Epbqty8-30PN-Ubxuu [place] [facility]-[place] [address] DO Work Phone: [phone]\S\80Wumarx07-071HT-Tmhdu [place] [facility]-[place] [address] DO Work Phone: Comment on above:Random Glucose Reference Range is dependent on time and content of last meal. Glucose of more than 200 mg/dL in a nonstressed, ambulatory subject supports the diagnosis of Diabetes Mellitus. ADA recommended reference range13\S\58Zvcbtr96-95CD-Ymeqn [place] [facility]-[place] [address] DO Work Phone: [phone]\S\1.44Uqpxig0.45-5.33MP-[facility]-[place] [address] DO Work Phone: Comment on above:PERFORMED BY:[facility] [place], [place] [id number] MEDICAL DIRECTORGABINO ARCOS M.D.Potassium [Moles/volume] in Serum or PlasmaOrdered By: Alfred Baron on 49-89-5760Ikyrttfrl [Moles/Vol]4.5 mmol/L3.5-5.1FKnox Community HospitalRadiologyon 21-89-4939DL Chest 2 ViewsNormalMP-[facility] Heart- [place] [address] DO Work Phone: Serum or plasma anion gap determinationOrdered By: Alfred Baron on 47-69-6799Vqktb gap [Moles/Vol]7.8 mmol/L6.0-15.0[facility] Hospitalodium [Moles/volume] in Serum or PlasmaOrdered By: Alfred Baron on 18-74-1491Parrdv [Moles/Vol]140 mmol/D245-908TmdehnchlKettering Health Miamisburg Thyrotropin [Units/volume] in Serum or PlasmaOrdered By: Alfred Baron on 03-21-2023 TSH Qn1.36 m[IU]/L0.45-5.33[facility] MiamisburgUrea nitrogen [Mass/volume] in Serum or PlasmaOrdered By: Alfred Baron on 95-53-5563Dypu nitrogen [Mass/Vol]18 mg/dL7[facility] MiamisburgOffice Visit (Cardiology)on 94-93-5206Gjjerd-up visitDiagnoses/Problems Assessed Bradycardia (427.89) (R00.1) August 2021 Holter average HR 64 on no AVN agents Likely element of SSS (although PAF rates > 100) November 2022 Compa [facility] nocturnal bradycardia, no high-grade heart block. Paroxysmal [...] outside facility May 2021 NSTEMI admit at [facility] May 2021 cardiac cath: pLAD patent stent [...] in adult Healthy Weight Tips; Status:Complete; Done: 25Vta2354 Patient Instructions Please bring all medicines, vitamins, [...] making process incorporating patients unique circumstances, the followingtreatment plan will be initiated: 1. Prescription drug [...] bradycardia and he completed a 14-day Compa [place]. Results reviewed including no evidence of high-grade [...] Amiodarone HCl - 200 (more content not included)...NormalUH TouchworksTobacco Screening.on 03-53-4672Gdkj risk assessmenta) No falls within the last year[facility] [employer] [place] [address] DO Work Phone: Tobacco use status CPHSb) NoMFranciscan Health [employer] [facility] [employer]- [facility] [place] [address] DO Work Phone: Cardiovasc Arrhythmia Resultson 71-99-3129Lciicxucis Arrhythmia ResultsReason For Visit Event Monitor: VALENTÍN is here for the application of a 30 day event monitor in office., Diagnosis: bradycardia, afib Ordering Physician: Florence Mora NP Enrollment sent to: [employer] Monitor number [id number] applied. Holter monitor printed and placed on [...] Paroxysmal atrial fibrillation (427.31) (I48.0) Future Appointments Date/TimeProviderSpecialtySite 01/03/2023 11:00 Florence Sales APRN-BLXKhuicjznae[address] [place] [address] DO 07/20/2023 10:00 Brendon Hennessy DOCardiology703 [facility] 2 [address] DO Signatures Electronically signed by : Rose Green MD; Dec 28 2022 10:28PM EST (Author) [facility] TouchworksOffice Visit (Cardiology)on 22-30-4864Rrmbeh-up visit Diagnoses/Problems Assessed Paroxysmal atrial fibrillation (427.31) [...] concerning symptoms May 2021 NSTEMI admit at [facility] Intolerant to plavix and eliquis Daily activity [...] making process incorporating patients unique circumstances, the followingtreatment plan will be initiated: 1. Prescription drug management of cardiovascular medication for efficacy, adherence to treatment, side effect assessment and polypharmacy. Current treatment clinically warranted and to continue without modifications. 2. GARFIELD 14 days (PAF, bradycardia) 3. Return for follow-up; in the interim, contact the office if new symptoms arise. Dr. Braon as prior 4. Blood pressure check at time of GARFIELD [facility] f/u: 'doing ok' VALENTÍN BUCKNER is being seen for follow-up of a hospitalization for dizziness. Patient presents to the office ambulatory steady gait, is accompanied by his . Last evaluated in clinic Dr. Baron June 2022. At that time dose of amiodarone reduced 100 mg daily. October 2022 presented to [facility] due to dizziness. 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, when he raised up he felt [...] of Back surgery History (more content not included)...NormalUH TouchworksTobacco Screening.on 36-38-1691Qtspk depression screening assessmentNoWenatchee Valley Medical Center [employer] [place] [address] DO Work Phone: Fall risk assessmenta) No falls within the last year [facility] [place] [address] DO Work Phone: Tobacco use status CPHSb) NoMFranciscan Health [facility]- [facility] [place] [address] DO Work Phone: Alanine aminotransferase [Enzymatic activity/volume] in Serum or PlasmaOrdered By: Pedro Corbett on 42-00-6516GOY [Catalytic activity/Vol]16 U/L7-52[facility] MiamisburgAlbumin [Mass/volume] in Serum or Plasma by Bromocresol green (BCG) dye binding methoOrdered By: Pedro Corbett on 34-54-9587Cwfcdok BCG dye [Mass/Vol]4.0 g/dL3.5-5.7FKnox Community HospitalAlkaline phosphatase [Enzymatic activity/volume] in Serum or PlasmaOrdered By: Pedro Corbett on 00-68-2267DBZ [Catalytic activity/Vol]66 U/L 34-104K[facility] MiamisburgAspartate aminotransferase [Enzymatic activity/volume] in Serum or PlasmaOrdered By: Pedro Corbett on 29-65-0951YCA [Catalytic activity/Vol]17 U/X60-22WbvmqfccwKettering Health MiamisburgBasophils Auto (Bld) [#/Vol]Ordered By: Pedro Corbett on 95-48-0683Jgcuvjvvi (Bld) [#/Vol] 0.0 10*3/uL0.0-0.2FKnox Community HospitalBasophils/100 WBC Auto (Bld) Ordered By: Pedro Corbett on 48-81-1039Zrmvkfftz/100 WBC (Bld)0.4 %.[facility] MiamisburgBilirubin.total [Mass/volume] in Serum or PlasmaOrdered By: Pedro Corbett on 42-49-3588Rzsdzujuj [Mass/Vol]0.3 mg/dL0.3-1.0[facility] MiamisburgCalcium [Mass/volume] in Serum or PlasmaOrdered By: Pedro Corbett on 66-98-7576Dxkiqrt [Mass/Vol]8.4 mg/dL8.6-10.3FKnox Community HospitalCarbon dioxide, total [Moles/volume] in Serum or PlasmaOrdered By: Pedro Corbett on 48-33-7744TJ4 [Moles/Vol]26.2 mmol/L21.0-31.0[facility] MiamisburgChloride [Moles/volume] in Serum or PlasmaOrdered By: Pedro Corbett on 76-59-4946Mtzcxtyq [Moles/Vol]106 mmol/E10-843KebhvmkqfKettering Health MiamisburgCreatine kinase [Enzymatic activity/volume] in Serum or PlasmaOrdered By: Pedro Corbett on 60-43-6910DU [Catalytic activity/Vol]84 U/L 30-223[facility] MiamisburgCreatinine [Mass/volume] in Serum or PlasmaOrdered By: Pedro Corbett on 74-65-9050Zhjenbvubg [Mass/Vol]1.20 mg/dL 0.70-1.30[facility] MiamisburgEosinophils Auto (Bld) [#/Vol]Ordered By: Pedro Corbett on 30-15-5416Mfxeszkqhku (Bld) [#/Vol]0.1 10*3/uL0.0-0.45 [facility] MiamisburgEosinophils/100 WBC Auto (Bld)Ordered By: Pedro Corbett on 44-25-3256Ppjdjwuvttt/100 WBC (Bld)0.9 %.[facility] MiamisburgErythrocyte distribution width Auto (RBC) [Ratio]Ordered By: Pedro Corbett on 58-20-3530Rfcinupymbr distribution width (RBC) [Ratio]19.8 % 12.0-14.8[facility] MiamisburgGlobulin Calc (S) [Mass/Vol]Ordered By: Pedro Corbett on 55-82-9397Jmxxmjes (S) [Mass/Vol]2.5 g/dLKettering Health MiamisburgGlucose [Mass/volume] in Serum or PlasmaOrdered By: Pedro Corbett on 27-82-4989Bukyuot [Mass/Vol]103 mg/vH17-749DybhhlghpKettering Health Miamisburg Comment on above:ADA recommended reference rangeRandom Glucose Reference Range is dependent on time and content of last meal. Glucose of more than 200 mg/dL in a nonstressed, ambulatory subject supports the diagnosisof Diabetes Mellitus. Hematocrit Auto (Bld) [Volume fraction]Ordered By: Pedro Corbett on 10-28-2022 Hematocrit (Bld) [Volume fraction]40.4 %38.8-50.0[facility] MiamisburgHemoglobin [Mass/volume] in BloodOrdered By: Pedro Corbett on 10-28-2022 Hemoglobin (Bld) [Mass/Vol]12.9 g/dL13.0-17.0[facility] Leukocytes [#/volume] corrected for nucleated erythrocytes in Blood by Automated counOrdered By: Pdero Corbett on 19-50-4496MMU corrected for nucl RBC Auto (Bld) [#/Vol]8.9 10*3/uL4.1-10.5FKnox Community HospitalLymphocytes Auto (Bld) [#/Vol]Ordered By: Pedro Corbett on 84-11-2084Gsypkcytvbq (Bld) [#/Vol]2.2 10*3/uL1.00-4.8[facility] MiamisburgLymphocytes/100 WBC Auto (Bld)Ordered By: Pedro Corbett on 14-87-0967Hnpifamsbyy/100 WBC (Bld)24.4 % .[facility] MiamisburgMCH Auto (RBC) [Entitic mass]Ordered By: Pedro Corbett on 89-46-8909SUC (RBC) [Entitic mass]25.3 pg27.5-35.2FKnox Community HospitalMCHC Auto (RBC) [Mass/Vol]Ordered By: Pedro Corbett on 72-58-6760YSAS (RBC) [Mass/Vol]31.8 g/dL32.5-35.6FKnox Community HospitalMCV Auto (RBC) [Entitic vol]Ordered By: Pedro Corbett on 09-20-2706TTR (RBC) [Entitic vol]79.6 fL83.5-101[facility] MiamisburgMagnesium [Mass/volume] in Serum or PlasmaOrdered By: Trena Pena on 48-53-7602Kfuuhqshk [Mass/Vol]1.9 mg/dL1.9-2.7FKnox Community HospitalMonocyte distribution width [Entitic volume] in Blood by AutomatedOrdered By: Pedro Corbett on 32-50-9151Mhhncxkr distribution width Auto (Bld) [Entitic vol]16.55 %0.00-20.00 [facility] MiamisburgMonocytes Auto (Bld) [#/Vol]Ordered By: Pedro Corbett on 32-32-4233Nxdsfehiy (Bld) [#/Vol]1.0 10*3/uL0.0-0.8[facility] MiamisburgMonocytes/100 WBC Auto (Bld)Ordered By: Pedro Corbett on 69-22-8467Fcqccrfkk/100 WBC (Bld)11.8 %.[facility] Natriuretic peptide B [Mass/Vol]Ordered By: Pedro Corbett on 10-28-2022 Natriuretic peptide B (Bld) [Mass/Vol]148.0 pg/mL5-100[facility] MiamisburgNeutrophils Auto (Bld) [#/Vol]Ordered By: Pedro Corbett on 10-28-2022 Neutrophils (Bld) [#/Vol]5.6 10*3/uL1.8-7.7FKnox Community Hospital Neutrophils/100 WBC Auto (Bld)Ordered By: Pedro Corbett on 10-28-2022 Neutrophils/100 WBC (Bld)62.5 %.[facility]amisburgNo Panel InformationOrdered By: Pedro Corbett on 40-02-9702Fwcofbgsk GFR (CKD-EPI)> 60.0 mL/MinKettering Health MiamisburgPharmacy Creatinine Clearance (Chem53.74 [facility] MiamisburgNucleated erythrocytes [Presence] in Blood by Automated countOrdered By: Pedro Corbett on 64-37-9271Ewdmqrddw RBC Auto Ql (Bld)0.0 /100{WBC}0-0.5FKnox Community HospitalPlatelet mean volume Auto (Bld) [Entitic vol]Ordered By: Pedro Corbett on 30-02-1402Idwavscc mean volume (Bld) [Entitic vol]7.8 fL6.6-10.1FKnox Community Hospital Platelets Auto (Bld) [#/Vol]Ordered By: Pedro Corbett on 19-24-9403Peujrnjzd (Bld) [#/Vol]215 10*3/tG842-739WiewrfwcoKettering Health MiamisburgPotassium [Moles/volume] in Serum or PlasmaOrdered By: Pedro Corbett on 10-28-2022 Potassium [Moles/Vol]4.2 mmol/L3.5-5.1FKnox Community HospitalProtein [Mass/volume] in Serum or PlasmaOrdered By: Pedro Corbett on 16-08-8446Ormvgux [Mass/Vol]6.5 g/dL6.4-8.9[facility] MiamisburgRBC Auto (Bld) [#/Vol] Ordered By: Pedro Corbett on 67-69-0328UMY (Bld) [#/Vol]5.08 10*6/uL3.90-5.60 [facility] Hospitalerum or plasma albumin/globulin mass ratio Ordered By: Pedro Corbett on 48-67-3313Bchocsq/Globulin [Mass ratio]1.6 {ratio} [facility] Hospitalerum or plasma anion gap determinationOrdered By: Pedro Corbett on 45-52-3059Spaod gap [Moles/Vol]11.0 mmol/L6.0-15.0[facility] Hospitalodium [Moles/volume] in Serum or PlasmaOrdered By: Pedro Corbett on 45-36-1089Muysoz [Moles/Vol]139 mmol/A239-500MvuvtzxoaKettering Health MiamisburgThyrotropin [Units/volume] in Serum or PlasmaOrdered By: Karol Sage on 93-10-4347IPX Qn2.15 m[IU]/L0.45-5.33[facility] MiamisburgTroponin I.cardiac [Mass/volume] in Serum or Plasma by Detection limit <= 0.01 ng/Ordered By: Pedro Corbett on 75-22-9393Skcdanrl I.cardiac DL <= 0.01 ng/mL [Mass/Vol]7.4 pg/mL0.0-20.0[facility] MiamisburgUrea nitrogen [Mass/volume] in Serum or PlasmaOrdered By: Pedro Corbett on 56-56-2844Mvuf nitrogen [Mass/Vol]23 mg/dL7-25[facility] MiamisburgWBC Auto (Bld) [#/Vol]Ordered By: Pedro Corbett on 30-17-3219QHH (Bld) [#/Vol]8.9 10*3/uL 4.1-10.5FKnox Community HospitalCBC AUTO DIFFon 08-29-0012UJZO #0.0 103/ulNormal0.0-0.1The [facility] HospitalComment on above:Performed By: #### CVDTBH #### [facility] [address] [address] [address] Steve SevillaBasophils/100 WBC (Bld)0.4 %Normal0.2-2.0The [facility] Comment on above:Performed By: #### CVDTBH #### [facility] [address] [address] [address] Steve Lord #0.1 103/ulNormal0.0-0.7The [facility] HospitalComment on above: Performed By: #### CVDTBH #### [facility] [address] [address] [address] Steve Morseosinophils/100 WBC (Bld)1.1 %Normal0.9-7.0[facility] Comment on above:Performed By: #### CVDTBH #### [facility] [address] [address] [address] Steve Morserythrocyte distribution width (RBC) [Ratio]18.6 %Critically high 11.0-15.0The [facility] HospitalComment on above:Performed By: #### CVDTBH #### [facility] [address] [place] [address] Dr. Steve SevillaHematocrit (Bld) [Volume fraction]42.9 %Khfavr95.0-54.0The [facility] HospitalComment on above:Performed By: #### CVDTBH #### [facility] [address] [place] [address] Dr. Steve SevillaHemoglobin (Bld) [Mass/Vol]13.0 g/dLCritically low14.0-18.0The [facility] HospitalComment on above:Performed By: #### CVDTBH #### [facility] [address] [place] [address] Dr. Steve Jimenez #0.03 10e3/ulNormal0.00-0.03The [facility] HospitalComment on above:Performed By: #### CVDTBH #### [facility] [address] [place] [address] Dr. Steve Jimenez %0.3 %Normal0.0-0.5The [facility] HospitalComment on above: Performed By: #### CVDTBH #### [facility] [address] [place] [address] Dr. Steve Connor #2.6 103/ulNormal1.2-3.8The [facility] HospitalComment on above:Performed By: #### CVDTBH #### [facility] [address] [place] [address] Dr. Steve Crenshawmphocytes/100 WBC (Bld)23.1 %Sllups23.5-60.0The [facility] HospitalComment on above:Performed By: #### CVDTBH #### [facility] [address] [place] [address] Dr. Steve PowerUAL DIFF REQNONormalThe [facility] HospitalComment on above: Performed By: #### CVDTBH #### [facility] [address] [place] [address] Dr. Steve Raymond (RBC) [Entitic mass]25.0 pgCritically low25.9-34.0The [facility] HospitalComment on above:Performed By: #### CVDTBH #### [facility] [address] [place] [address] Dr. Steve Chau (RBC) [Mass/Vol]30.3 g/nIPstsex65.9-35.2The [facility] HospitalComment on above:Performed By: #### CVDTBH #### [facility] [address] [place] [address] Dr. Steve Chau (RBC) [Entitic vol]82.7 hTIaqqpx94.0-94.0The [facility] HospitalComment on above:Performed By: #### CVDTBH #### [facility] [address] [place] [address] Dr. Steve Lopez #1.2 103/ulCritically high0.3-0.8[facility] Comment on above:Performed By: #### CVDTBH #### [facility] [address] [place] [address] Dr. Steve Okeefeocytes/100 WBC (Bld)10.6 %Normal1.7-12.0[facility] Comment on above:Performed By: #### CVDTBH #### [facility] [address] [place] [address] Dr. Steve Galeana #7.2 103/ulCritically high1.4-6.5The [facility] Comment on above:Performed By: #### CVDTBH #### [facility] [address] [place] [address] Dr. Steve Rosadoutrophils/100 WBC (Bld)64.5 %Blsaae22.0-75.0The [facility] HospitalComment on above:Performed By: #### CVDTBH #### [facility] [address] [place] [address] Dr. Steve Northlet mean volume (Bld) [Entitic vol]8.9 fLCritically low 9.5-13.5The [facility] HospitalComment on above:Performed By: #### CVDTBH #### [facility] [address] [address] [address] Steve SevillaPLT248 103/lhWqmpwn748-256Asq [facility] HospitalComment on above: Performed By: #### CVDTBH #### [facility] [address] [address] [address] Steve SevillaRBC5.19 106/ulNormal4.70-6.10The [facility] HospitalComment on above:Performed By: #### CVDTBH #### [facility] [address] [place] [address] Dr. Steve SevillaWBC11.2 103/ulCritically high4.0-11.0The [facility] HospitalComment on above:Performed By: #### CVDTBH #### [facility] [address] [place] [address] Dr. Steve SevillaFERRITINon 43-11-7004Akfaonnv [Mass/Vol]12.0 ng/mLCritically low 26.0-388.0The [facility] HospitalComment on above:Performed By: #### FETIBC, FERR #### [facility] [address] [place] [address] Dr. Steve Chowdhury AND TIBCon 10-20-2022% YLIKCOJRTE48.1 %NormalThe [facility] HospitalComment on above:Performed By: #### FETIBC, FERR #### [facility] [address] [place] [address] Dr. Steve Chowdhury [Mass/Vol]47.0 ug/dLCritically low65.0-175.0The [facility] HospitalComment on above:Performed By: #### FETIBC, FERR #### [facility] [address] [place] [address] Dr. Steve SevillaTIBC JTYFAX568.0 ug/nQTfsxpn530.0-450.0[facility] Comment on above:Performed By: #### FETIBC, FERR #### [facility] [address] [place] [address] Dr. Steve SevillaAspartate aminotransferase [Enzymatic activity/volume] in Serum or PlasmaOrdered By: Alfred Baron on 79-14-9513MVJ [Catalytic activity/Vol]23 U/L 13-39[facility] MiamisburgCalcium [Mass/volume] in Serum or Plasma Ordered By: Alfred Baron on 99-83-2900Mxsqkxk [Mass/Vol]8.4 mg/dL8.6-10.3FKnox Community HospitalCarbon dioxide, total [Moles/volume] in Serum or Plasma Ordered By: Alfred Baron on 46-78-4149KR8 [Moles/Vol]28.2 mmol/L21.0-31.0[facility] MiamisburgChloride [Moles/volume] in Serum or PlasmaOrdered By: Alfred Baron on 39-70-2074Ffbpsgex [Moles/Vol]106 mmol/X07-079WtaczsvwdKettering Health MiamisburgCreatinine [Mass/volume] in Serum or PlasmaOrdered By: Alfred Baron on 58-42-3776Gdmzyaihbl [Mass/Vol]1.13 mg/dL0.70-1.30[facility] MiamisburgGlucose [Mass/volume] in Serum or PlasmaOrdered By: Alfred Baron on 00-17-7455Wnrxium [Mass/Vol]88 mg/pW97-900KewkjtyepKettering Health Miamisburg Comment on above:ADA recommended reference rangeRandom Glucose Reference Range is dependent on time and content of last meal. Glucose of more than 200 mg/dL in a nonstressed, ambulatory subject supports the diagnosisof Diabetes Mellitus.No Panel InformationOrdered By: Alfred Baron on 83-95-1769Eydxxjxsm GFR (CKD-EPI)> 60.0 mL/MinKettering Health MiamisburgPharmacy Creatinine Clearance (Chem N/[facility] HospitalNo Panel Informationon 10-15-2022> 60.0 NormalMP-[facility] [employer] 250 DO Work Phone: [phone]\S\10.9Vrdgme2.0-15.0MP-[facility] [employer] [place] 250 DO Work Phone: [phone]\S\8.4below low threshold8.6-10.3MP-[place] [employer] 250 DO Work Phone: [phone]\S\28.5Psyghw10.0-31.0MP-[facility] [address] DO Work Phone: [phone]\S\113Dhylen75-712VD-Xyjea [place] [facility] [address] DO Work Phone: [phone]\S\4.3Ulceni3.5-5.1MP-[facility] [address] DO Work Phone: [phone]\S\101Tunrjx758-474WS-Ppogs [place] [facility] [address] DO Work Phone: [phone]\S\1.79Rxhvuy9.70-1.30MP-[facility] Heart-[place] 250 DO Work Phone: [phone]\S\41Syjoih2-87ZT-Vyrvh [place] [facility] [address] DO Work Phone: [phone]\S\24Vsbyjs26-692UI-Bwrns [place] [facility] [address] DO Work Phone: Comment on above:Random Glucose Reference Range is dependent on time and content of last meal. Glucose of more than 200 mg/dL in a nonstressed, ambulatory subject supports the diagnosis of Diabetes Mellitus. ADA recommended reference range23\S\03Eiepwt79-85FZ-Hhzzi [place] [facility] [address] DO Work Phone: [phone]\S\1.39Kbbgsu6.45-5.33MP-[facility] [address] DO Work Phone: Comment on above:PERFORMED BY:[facility] [place], [place] [phone] MEDICAL DIRECTORGABINO ARCOS M.D.Potassium [Moles/volume] in Serum or PlasmaOrdered By: Alfred Baron on 65-40-7932Ntodbfmkx [Moles/Vol]4.6 mmol/L3.5-5.1FKnox Community HospitalRadiologyon 74-58-0741SG Chest 2 ViewsNormalMP-[facility]- [place] [address] DO Work Phone: Serum or plasma anion gap determinationOrdered By: Alfred Baron on 05-31-4198Dcfji gap [Moles/Vol]10.4 mmol/L6.0-15.0[facility] Hospitalodium [Moles/volume] in Serum or PlasmaOrdered By: Alfred Baron on 17-09-6620Ukmslr [Moles/Vol]140 mmol/N756-481JytsibsrzKettering Health Miamisburg Thyrotropin [Units/volume] in Serum or PlasmaOrdered By: Alfred Baron on 10-15-2022 TSH Qn1.66 m[IU]/L0.45-5.33[facility] MiamisburgUrea nitrogen [Mass/volume] in Serum or PlasmaOrdered By: Alfred Baron on 06-87-9775Oulk nitrogen [Mass/Vol]19 mg/dL7-25[facility] MiamisburgOffice Visit (Cardiology)on 31-13-3297Dxbfgu-up visitDiagnoses/Problems Assessed CAD (coronary artery disease) (414.00) (I25.10) H/O non-ST elevation myocardial infarction (NSTEMI) (412) (I25.2) S/P PTCA (percutaneous transluminal coronary angioplasty) (V45.82) (Z98.61) High risk medication use (V58.69) (Z79.899) Anticoagulated (V58.61) (Z79.01) Mixed hyperlipidemia (272.2) (E78.2) Paroxysmal atrial fibrillation (427.31) (I48.0) Former smoker (V15.82) (Z87.891) quit 1995[facility] Overweight with body mass index (BMI) of [...] of ASHD and prior three-vessel PCI in [place]. 1 of those events was for an inferior DE with revascularization of the RCA. Patient isnotably severely allergic to Plavix and Effient. He has no history of stroke or bleeding disorder cancer peripheral vascular disease Has had mild paroxysmal atrial fibrillation, successfully treated with low-dose amiodarone, Eliquiswith no bleeding or thromboembolic events recurrence of A. fib Today's ECG reveals sinus bradycardia with a NV interval 266, QT corrected interval 457, and evidence of Q waves inferior DE indeterminate age. Heart catheterization in May 2021 performed by myself revealed patent LAD and circumflex stents, first OM branch was occluded and treated conservatively. Is otherwise doing well without any angina or recurrent A. fib He is asking about coming off of Eliquis and because of his elevated IQS2TH7- VASc score I recommended he stay on Eliquis [...] Signs Recorded: 15Jul2022 10:06AM Heart Rate50, Apical Nbcrhboo188, LUE, Sitting Zdurndrxj99, LUE, Sitting Height5 ft 9 in Ftzdff913 lb BMI Rilhgthqop10.94 kg/m2 BSA Calculated2.05 Tobacco Useb) No PHQ-2 #1. Over the (more content not included)...NormalUH TouchworksTobacco Screening.on 73-46-6565Ipchs depression screening assessmentNoWenatchee [facility] Medical Center [employer] DO Work Phone: Fall risk assessmentb) One or more falls in the last yearWenatchee Valley Medical Center [employer] 250 DO Work Phone: Tobacco use status CPHSb) [facility] [employer] DO Work Phone: Creatinine and Glomerular filtration rate.predicted panel (S/P/Bld)Ordered By: Alfred Baron on 53-76-0610Zpdjdrnzlg [Mass/Vol]1.02 mg/dL0.64-1.27[facility] MiamisburgEstimated glomerular filtration rate (GFR) non- AmericanOrdered By: Alfred Baron on 06-98-2466FMX/1.73 sq M.predicted among non-blacks MDRD (S/P/Bld) [Vol rate/Area]> 60 mL/MinKettering Health MiamisburgNo Panel InformationOrdered By: Alfred Baron on 07-12-2022 Estimated GFR ()> 60 mL/MinKettering Health Miamisburg Comment on above:GFR estimated reference range: According to KDOQI guidelines, <60 ml/min/1.73m2 is sufficient todiagnose a patient with chronic kidney disease.Pharmacy Creatinine Clearance (ChemN/[facility] No Panel Informationon 69-48-614680.7\S\10.8Dmpydv4.0-15.0MP-[facility]- [place] [address] DO Work Phone: [phone]\S\9.3Cqftpq0.2-10.2MP-[facility]-[place] 250 DO Work Phone: [phone]\S\26.3Gxvfbi59.0-30.0MP-[facility]-[place] 250 DO Work Phone: [phone]\S\554Zphaja36-154EJ-Puxrk [place] [facility]-[place] 250 DO Work Phone: [phone]\S\4.8Hhdugz3.5-5.1MP-[facility] [address] DO Work Phone: [phone]\S\651Otwouw678-513AP-Jbten [place] [facility]-[place] 250 DO Work Phone: > 60NormalMP-[facility] [address] DO Work Phone: Comment on above:GFR estimated reference range: According to KDOQI guidelines, <60 ml/min/1.73m2 is sufficient todiagnose a patient with chronic kidney disease.1.02\S\1.85Rsimjc5.64-1.27MP-[facility] [address] DO Work Phone: [phone]\S\02Ayhjvm8-79TD-Gkwjc [place] [facility] [address] DO Work Phone: [phone]\S\53Jfucmy12-374EH-UnneqCook Hospital 250 DO Work Phone: Comment on above:Random Glucose Reference Range is dependent on time and content of last meal. Glucose of more than 200 mg/dL in a nonstressed, ambulatory subject supports the diagnosis of Diabetes Mellitus. ADA recommended reference range22\S\78Rcqrwh46-85QD-NlzpdCook Hospital 250 DO Work Phone: [phone]\S\1.00Eduidg4.45-5.33MP-[facility] 250 DO Work Phone: Comment on above:PERFORMED BY:[address] [place], [place] [phone] MEDICAL DIRECTORGABINO ARCOS M.D.Radiologyon 62-33-9012UR Chest 2 ViewsNormalMP-[facility] 250 DO Work Phone: Serum or plasma anion gap determinationOrdered By: Alfred Baron on 73-66-2494Nzcot gap [Moles/Vol]10.7 mmol/L6.0-15.0[facility] Hospitalerum or plasma aspartate aminotransferase measurement (enzymatic activity/volume)Ordered By: Alfred Baron on 33-54-2654QPY [Catalytic activity/Vol] 22 U/L90-83QblpjaemaMercy Health West Hospitalerum or plasma calcium measurement (mass/volume)Ordered By: Alfred Baron on 78-50-4131Wsvwbwj [Mass/Vol]9.0 mg/dL 8.2-10.2FKeenan Private Hospitalerum or plasma chloride measurement (moles/volume)Ordered By: Alfred Baron on 79-42-8328Auqarewh [Moles/Vol]106 mmol/L 95-114[facility] Hospitalerum or plasma glucose measurement (mass/volume)Ordered By: Alfred Baron on 17-10-3467Pzcaorb [Mass/Vol]86 mg/tK97-405 [facility] CenterComment on above:ADA recommended reference rangeRandom Glucose Reference Range is dependent on time and content of last meal. Glucose of more than 200 mg/dL in a nonstressed, ambulatory subject supports the diagnosisof Diabetes Mellitus.Serum or plasma potassium measurement (moles/volume)Ordered By: Alfred Baron on 63-11-7407Nsgymsxum [Moles/Vol]4.4 mmol/L3.5-5.1FKeenan Private Hospitalerum or plasma sodium measurement (moles/volume)Ordered By: Alfred Barno on 22-05-5766Yzsrxk [Moles/Vol]139 mmol/L 136-146[facility] Hospitalerum or plasma total carbon dioxide measurement (moles/volume)Ordered By: Alfred Baron on 94-03-9488VZ5 [Moles/Vol]26.7 mmol/L22.0-30.0[facility] Hospitalerum or plasma urea nitrogen measurement (mass/volume)Ordered By: Alfred Baron on 13-29-0395Hzfz nitrogen [Mass/Vol]18 mg/dL9-23[facility] MiamisburgTS DL <= 0.005 mIU/L Qn Ordered By: Alfred Baron on 99-97-8572IQR Qn1.82 m[IU]/L0.45-5.33[facility] MiamisburgCovid-19 PCR ([facility])on 40-62-2504TWOS-CoV-2 (COVID-19) RNA LO+probe Ql (Unsp spec)Not detectedNormalNOT DETECTEDThe [facility] Comment on above:Result Comment: This test is not yet approved or cleared by the [place] FDA. When there are no FDA-approved or cleared tests available, and other criteria are met, FDA can make tests available under an emergency access mechanism called an Emergency Use Authorization (EUA). The EUA for this test is supported by the [place] of Health and Human Service's (HHS's) declaration that circumstances exist to justify the emergency use of in vitro diagnostics for the detection and/or diagnosis of the virus that causes COVID- 19. This EUA will remain in effect (meaning [...] of clinical signs and symptoms consistent with SARS-CoV-2.Performed By: #### CVDTBH #### [address] [address] Dr. Steve Buchanan AND [place] [facility] 92-60-9529JPAYPSNBCRALJOhioHealth Doctors Hospitalment on above:Result Comment: Negative for Flu B protein antigen. Infection due to Flu B cannot be ruled out. FluB antigen in the sample may be below the detection limit of the test.Performed By: #### CVDTBH #### [address] [address] Dr. Steve Buchanan AGPositiveAbnormalNEGATIVE SEE COMMENTThe [facility] on above:Performed By: #### CVDTBH #### [address] [address] Dr[address] Steve Coppola AGNegativeNormalNEGATIVE SEE COMMENTThe [facility] on above:Performed By: #### CVDTBH #### [address] [address] Dr[address] Steve PadronUPOSHDEV [facility] on above: Result Comment: NOTE: Live attenuated influenzae vaccine viruses can cause a positive result for a rapid influenza diagnostic test if administered up to 7 days prior to rapid testing.Performed By: #### CVDTBH #### [address] [address] Dr[address] Steve SevillaINTERNAL CONTROLSWithin Normal LimitsNormalWithin Normal Limits The [facility] HospitalComment on above:Performed By: #### CVDTBH #### [facility] [address] [place] [address] Dr. Steve Richards AUTO DIFFon 09-47-7436DHCI #0.0 103/ulNormal0.0-0.1The [facility] HospitalComment on above:Performed By: #### CBC #### [facility] [address] [address] [address] Steve SevillaBasophils/100 WBC (Bld)0.4 %Normal0.2-2.0The [facility] Comment on above:Performed By: #### CBC #### [facility] [address] [address] [address] Steve Lord #0.1 103/ulNormal0.0-0.7The [facility] HospitalComment on above: Performed By: #### CBC #### [facility] [address] [address] [address] Steve Morseosinophils/100 WBC (Bld)1.5 %Normal0.9-7.0[facility] Comment on above:Performed By: #### CBC #### [facility] [address] [place] [address] Dr. Steve Morserythrocyte distribution width (RBC) [Ratio]16.5 %Critically high 11.0-15.0The [facility] HospitalComment on above:Performed By: #### CBC #### [facility] [address] [place] [address] Dr. Steve SevillaHematocrit (Bld) [Volume fraction]43.1 %Qahtxq77.0-54.0The [facility] HospitalComment on above:Performed By: #### CBC #### [facility] [address] [place] [address] Dr. Steve SevillaHemoglobin (Bld) [Mass/Vol]13.3 g/dLCritically low14.0-18.0The [facility] HospitalComment on above:Performed By: #### CBC #### [facility] [address] [place] [address] Dr. Steve Jimenez #0.02 10e3/ulNormal0.00-0.03The [facility] HospitalComment on above:Performed By: #### CBC #### [facility] [address] [place] [address] Dr. Steve Jimenez %0.2 %Normal0.0-0.5The [facility] HospitalComment on above: Performed By: #### CBC #### [facility] [address] [address] [address] Steve Connor #2.6 103/ulNormal1.2-3.8The [facility] HospitalComment on above:Performed By: #### CBC #### [facility] [address] [address] [address] Steve Armijohocytes/100 WBC (Bld)27.8 %Twfiux53.5-60.0The [facility] HospitalComment on above:Performed By: #### CBC #### [facility] [address] [address] [address] Steve Marquez DIFF REQNONormalThe [facility] HospitalComment on above: Performed By: #### CBC #### [facility] [address] [address] [address] Steve Raymond (RBC) [Entitic mass]27.3 zsMhpoue92.9-34.0The [facility] HospitalComment on above:Performed By: #### CBC #### [facility] [address] [address] [address] Steve Chau (RBC) [Mass/Vol]30.9 g/lYIwwlju02.9-35.2The [facility] HospitalComment on above:Performed By: #### CBC #### [facility] [address] [address] [address] Steve Chau (RBC) [Entitic vol]88.3 sZXedowj04.0-94.0The [facility] HospitalComment on above:Performed By: #### CBC #### [facility] [address] [address] [address] Steve Lopez #1.5 103/ulCritically high0.3-0.8The [facility] Comment on above:Performed By: #### CBC #### [facility] [address] [address] [address] Steve Okeefeocytes/100 WBC (Bld)15.8 %Critically high1.7-12.0The [facility] HospitalComment on above:Performed By: #### CBC #### [facility] [address] [address] [address] Steve RosadoUT #5.0 103/ulNormal1.4-6.5The [facility] HospitalComment on above:Performed By: #### CBC #### [facility] [address] [place] [address] Dr. Steve Rosadoutrophils/100 WBC (Bld)54.3 %Ulrpnn48.0-75.0The [facility] HospitalComment on above:Performed By: #### CBC #### [facility] [address] [place] [address] Dr. Steve Northlet mean volume (Bld) [Entitic vol]9.2 fLCritically low 9.5-13.5The [facility] HospitalComment on above:Performed By: #### CBC #### [facility] [address] [place] [address] Dr. Steve SevillaPLT239 103/arVewahf888-898Pmd [facility] HospitalComment on above: Performed By: #### CBC #### [facility] [address] [place] [address] Dr. Steve SevillaRBC4.88 106/ulNormal4.70-6.10The [facility] HospitalComment on above:Performed By: #### CBC #### [facility] [address] [place] [address] Dr. Steve SevillaWBC9.3 103/ulNormal4.0-11.0The [facility] HospitalComment on above: Performed By: #### CBC #### [facility] [address] [place] [address] Dr. Steve Pleitezvienmanuel-19 PCR (CVDTB)on 15-68-7176WQVM-CoV-2 (COVID-19) RNA LO+probe Ql (Unsp spec)Not detectedNormalNOT DETECTEDThe [facility] Comment on above:Result Comment: This test is not yet approved or cleared by the [place] FDA. When there are no FDA-approved or cleared tests available, and other criteria are met, FDA can make tests available under an emergency access mechanism called an Emergency Use Authorization (EUA). The EUA for this test is supported by the Nuclear Operations Specialist of Health and Human Service's (HHS's) declaration that circumstances exist to justify the emergency use of in vitro diagnostics for the detection and/or diagnosis of the virus that causes COVID- 19. This EUA will remain in effect (meaning [...] of clinical signs and symptoms consistent with SARS-CoV-2.Performed By: #### CVDTBH #### [facility] [address] [place] [address] Dr. Steve SevillaCreatinine and Glomerular filtration rate.predicted panel (S/P/Bld)Ordered By: Alfred Baron on 86-18-5863Amqwwookzi [Mass/Vol]1.17 mg/dL 0.64-1.27[facility] MiamisburgEstimated glomerular filtration rate (GFR) non- AmericanOrdered By: Alfred Baron on 91-73-7376ODG/1.73 sq M.predicted among non-blacks MDRD (S/P/Bld) [Vol rate/Area]60 mL/MinKettering Health MiamisburgNo Panel InformationOrdered By: Alfred Baron on 03-24-2022 Estimated GFR ()> 60 mL/MinKettering Health Miamisburg Comment on above:GFR estimated reference range: According to KDOQI guidelines, <60 ml/min/1.73m2 is sufficient todiagnose a patient with chronic kidney disease.Pharmacy Creatinine Clearance (ChemN/[facility] Serum or plasma anion gap determinationOrdered By: Alfred Baron on 37-33-4641Flira gap [Moles/Vol]13.5 mmol/L6.0-15.0[facility] Hospitalerum or plasma aspartate aminotransferase measurement (enzymatic activity/volume)Ordered By: Alfred Baron on 79-73-3723BHE [Catalytic activity/Vol]19 U/P99-61BmumrbjhdMercy Health West Hospitalerum or plasma calcium measurement (mass/volume)Ordered By: Alfred Baron on 42-42-9795Dlzplbm [Mass/Vol]8.7 mg/dL8.2-10.2FKeenan Private Hospitalerum or plasma chloride measurement (moles/volume)Ordered By: Alfred Baron on 89-49-5226Veecsrlg [Moles/Vol]100 mmol/Q75-418OecyibwonMercy Health West Hospitalerum or plasma glucose measurement (mass/volume)Ordered By: Alfred Baron on 25-10-9144Eiuayub [Mass/Vol]147 mg/iK93-679AtfgoetbwKettering Health MiamisburgComment on above:ADA recommended reference rangeRandom Glucose Reference Range is dependent on time and content of last meal. Glucose of more than 200 mg/dL in a nonstressed, ambulatory subject supports the diagnosisof Diabetes Mellitus.Serum or plasma potassium measurement (moles/volume)Ordered By: Alfred Baron on 52-40-7397Bthvuzepw [Moles/Vol]4.2 mmol/L3.5-5.1FKeenan Private Hospitalerum or plasma sodium measurement (moles/volume)Ordered By: Alfred Baron on 41-84-0777Ipcigw [Moles/Vol]138 mmol/U376-347AwyssmalvMercy Health West Hospitalerum or plasma total carbon dioxide measurement (moles/volume) Ordered By: Alfred Baron on 81-61-2741SO3 [Moles/Vol]28.7 mmol/L22.0-30.0[facility] Hospitalerum or plasma urea nitrogen measurement (mass/volume) Ordered By: Alfred Baron on 18-91-1038Byrt nitrogen [Mass/Vol]17 mg/dL9-23[facility] MiamisburgTS DL <= 0.005 mIU/L QnOrdered By: Alfred Baron on 84-80-0932UBU Qn2.20 m[IU]/L0.45-5.33[facility] MiamisburgMRI LSPINE WO CONon 03-92-8931DAT LSSILVER WO CONEXAMINATION: MRI LSSILVER WO CON HISTORY: Low back pain COMPARISON: [...] Electronically authenticated by: KIKA CHO Date: 2022-01-07 22:[address] [place] [address] Screening.on 93-61-0854Crid risk assessmenta) No falls within the last yearW[facility] CopyRightNow 250 DO Work Phone: Tobacco use status CPHSb) [facility] Ryan 250 DO Work Phone: XR LSPINE MIN 4 VIEWSon 85-32-6449LQ LSPINE MIN 4 VIEWSEXAMINATION: XR LSPINE MIN 4 VIEWS HISTORY: Low [...] Electronically authenticated by: LYNDA BYNUM Date: 2021-12-30 12:12[place] Screening.on 66-84-4024Ugwc risk assessmenta) No falls within the last yearJohnson [facility]-Kari 250 DO Work Phone: [phone] use status CPHSb) [facility] Kari 250 DO Work Phone: [phone] Screening.on 99-67-1469Qtibz depression screening assessmentRiver's Edge Hospital 250 DO Work Phone: [phone] use status CPHSb) [facility] 250 DO Work Phone: LUC-8 VITALSon 59-18-7110Kyevl depression screening assessmentNoLifeCare Medical Centerusky 250 DO Work Phone: [phone] Screening.on 07-00-4221Lxuz risk assessmenta) No falls within the last yearJohnson [facility]-[place] 250 DO Work Phone: [phone] use status CPHSb) [facility] 250 DO Work Phone: [phone] Screening.on 94-77-4348Xacq risk assessmenta) No falls within the last yearLifeCare Medical Centerusky 250 DO Work Phone: [phone] use status CPHSb) [facility] 250 DO Work Phone: [phone] METABOLIC PANELon 46-83-1925Rynklaa mass conc8.5 mg/dLLow8.6-10.3The [facility] HospitalComment on above:Order Comment: No: Do not add to previous drawPerformed By: #### [id number], 53696 ####[facility] [place] [address], [place] Chloride molar mrqj441 mmol/RGbipdj33-178[facility] Comment on above:Order Comment: No: Do not add to previous drawPerformed By: #### 26401, 85682 ####[facility] [place] [address], [place]ACO2 molar conc29 mmol/NIyzsos24-36Hhw [facility] HospitalComment on above:Order Comment: No: Do not add to previous drawPerformed By: #### 49262, 51728 ####[facility] [place] [address], [facility] ROSWELLCreatinine mass conc0.89 mg/dLNormal0.70-1.30 The [facility] [place] [facility] HospitalComment on above:Order Comment: No: Do not add to previous drawPerformed By: #### 82698, 35652 ####[facility] [place] [address], USAGFR/1.73 sq M predicted among blacks MDRD vol rate/area (S/P/Bld)mL/min/{1.73_m2}Normal>60The [facility] HospitalComment on above:Order Comment: No: Do not add to previous drawResult Comment: Calculation may not be valid for patients over 70 yearsPerformed By: #### 98573, 64920 ####[facility] [place] [address], USAGFR/1.73 sq M predicted among non-blacks MDRD vol rate/area (S/P/Bld)mL/min/{1.73_m2}Normal>60The [facility] HospitalComment on above:Order Comment: No: Do not add to previous draw Result Comment: Calculation may not be valid for patients over 70 yearsPerformed By: #### 31586, 03583 ####[facility] [place] [address], USAGlucose mass conc95 mg/iFYsjwrl03-073Weh [facility] HospitalComment on above:Order Comment: No: Do not add to previous drawPerformed By: #### 75065, 88188 ####[facility] [place] [address], USAPotassium molar conc3.8 mmol/LNormal3.5-5.1 The [facility] HospitalComment on above:Order Comment: No: Do not add to previous drawPerformed By: #### 52274, 30647 ####[facility] [place] [address], USASodium molar grse642 mmol/GHyfsoj011-753Vlg [facility] HospitalComment on above:Order Comment: No: Do not add to previous drawPerformed By: #### 25713, 50295 ####[facility] [place] [address], [place] Urea nitrogen mass conc19 mg/dLNormal7-25The [facility] Comment on above:Order Comment: No: Do not add to previous drawPerformed By: #### 08187, 61370 ####[facility] [place] [address], USACBC COMPLETE BLOOD COUNTon 32-26-8925Fknsamsngdi distribution width Auto Ratio (RBC)13.2 %Hnafwv49.5-15.0The [facility] [place] [facility] HospitalComment on above:Order Comment: No: Do not add to previous draw Performed By: #### 36095 ####[facility] [place] [address], USAHematocrit Auto Volume Fraction (Bld)44.5 %Normal 39.0-50.0The [facility] [place] [facility] HospitalComment on above:Order Comment: No: Do not add to previous drawPerformed By: #### 41122 ####[facility] [place] [address], USAHemoglobin mass conc (Bld)15.0 g/xQOszsqu72.0-17.0The [facility] [place] [facility] HospitalComment on above:Order Comment: No: Do not add to previous drawPerformed By: #### 91126 ####[facility] [place] [address], [facility] MCH Auto Entitic mass (RBC)31.1 itKahxpj74.0-33.0The [facility] [place] [facility] HospitalComment on above:Order Comment: No: Do not add to previous draw Performed By: #### 71896 ####[facility] [facility] [place] [address], [facility] ROSWELLMCHC Auto mass conc (RBC)33.7 g/hEFaqpgd20.0-35.0The [facility] [place] [facility] HospitalComment on above:Order Comment: No: Do not add to previous drawPerformed By: #### 95319 ####[facility] [place] [address], [facility] ROSWELLMCV Auto Entitic volume (RBC)92.1 gORxtuhz91.0-98.0The [facility] [place] [facility] HospitalComment on above:Order Comment: No: Do not add to previous drawPerformed By: #### 16095 ####[facility] [facility] [place] [address], [facility] ROSWELLNucleated RBC/100 WBC Ratio (Bld)0 %Normal0-0The [facility] Comment on above:Order Comment: No: Do not add to previous drawPerformed By: #### 63223 ####[facility] [facility] [place] [address], USAPLAT VGH973 10*3/fNRybklr115-013Qyl [facility] [place] [facility] HospitalComment on above:Order Comment: No: Do not add to previous drawPerformed By: #### 08817 ####[facility] [place] [address], [facility], ROSWELLRBC Auto #/vol (Bld)4.83 10*6/uLNormal4.20-5.70The [facility] [place] [facility] HospitalComment on above:Order Comment: No: Do not add to previous drawPerformed By: #### 52476 ####[facility] [place] [address], USAWBC Auto #/vol (Bld)7.52 10*3/uLNormal 4.00-10.60The [facility] [place] [facility] HospitalComment on above:Order Comment: No: Do not add to previous drawPerformed By: #### 96583 ####[facility] [place] [address], USAHistory and Physicalon 41-39-5987Dwdkxyo and PhysicalMR#: [id number] Pt. Name: Valentín Buckner Admitted: 05/09/2018Date of : 1940 Attending Physician: Niki Ross MD Room #: [id number] Discharge Date: HISTORY AND PHYSICALHISTORY OF PRESENT ILLNESS: The patient is a 77-year-old [facility] was [facility] [...] His symptoms seems there are noalleviating or ag gravating factors. The patient denies any cold sweats orany dizziness or nausea or vomiting.PAST MEDICAL HISTORY: Significant for NSTEMI with initially stent tocircumflex and RCA 2014 and subsequent stent to LAD in 2016 and these aredrug- eluting stents. Also past medical history of hypertension andh yperlipidemia.MEDICATIONS: The patient takes Norvasc 10 mg daily, loratadine 10 mgdaily, Imdur 30 mg daily, Xanax 0.25 at bedtime, Lipitor 20 mg daily,aspirin 81 mg daily, and nitroglycerin sublingual. The patient does notseem to be on any beta-blockers.ALLERGIES: The patient has allergy to Brilinta as [...] jaw discomfort.PHYSICAL EXAMINATION: HEENT: Eyes; extraocular muscles intact.NECK:Supple. No JVD or lymphadenopathy.LUNGS: Clear to auscultation.HEART: S1, S2.ABDOMEN: Soft. Positive bowel sounds. EXTREMITIES: Positive pulses.NEUROLOGIC: The patient alert, awake, oriented x3.No focal neurodeficit. MUSCULOSKELETAL: No major joint deformities or tenderness oredema.PSYCHIATRIC: He is little bit anxious, otherwise, denies feeling depressedor suicidal. SKIN: Intact.LABORATORYDATA: [facility], the patient had EKG, whichshowed sinus [...] him on any heparin drip at this moment.2.Coronary artery disease status post myocardial infarction with [...] P Niki Ross, MDDate Dict: 05/09/2018/09:16 P/Niki oRss MDDate Trans: 05/10/2018 05:14 Chanel/Gavino_JN:[id number] Medical OhioHealth Rehabilitation HospitalTROPONIN-I on 62-87-6037Ckmktyrq I.cardiac mass conc0.01 ng/mLNormal0.00-0.04The [facility] [place] [facility] HospitalComment on above:Order Comment: No: Do not add to previous drawResult Comment: REFERENCE RANGES: 0.00 - 0.04 ng/ml NORMAL 0.05 - 0.50 ng/ml INDETERMINATE > 0.50 ng/ml CONSISTENT WITH AN M.I.Performed By: #### 06480, 79554 ####[facility] [facility] [address], USATroponin I.cardiac mass conc0.01 ng/mLNormal0.00-0.04The [facility] [place] [facility] HospitalComment on above:Order Comment: No: Do not add to previous drawResult Comment: REFERENCE RANGES: 0.00 - 0.04 ng/ml NORMAL 0.05 - 0.50 ng/ml INDETERMINATE > 0.50 ng/ml CONSISTENT WITH AN M.I.Performed By: #### 74061 ####[facility] [facility] [address], USATROPONIN-Ion 07-71-1314Lymgvall I.cardiac mass conc0.00 ng/mLNormal 0.00-0.04The [facility] HospitalComment on above:Order Comment: No: Do not add to previous drawResult Comment: REFERENCE RANGES: 0.00 - 0.14 ng/ml NEGATIVE 0.15 - 0.25 ng/ml INDETERMINATE > 0.25 ng/ml INDICATIVE OF AN M.I.Performed By: #### 15639 ####[facility] Vital Signs Date TimeVital SignValuePerforming VvsfnoqmeFcxainkg85-30-3591 13:35-0400Body gsordn169.26 cmBenjamin Ball DO Work Phone: [phone]09-05-2025 13:35-0400 Body mass index (BMI) [Ratio]29.1 kg/l3Ddexfimy Ball DO Work Phone: [phone]09-05-2025 13:35-0400 Body ogyywa52.47 kgBenjamin Ball DO Work Phone: [phone]09-05-2025 13:35-0400 Diastolic blood rxpatsza23 mm[Hg]Irving Ball DO Work Phone: [phone]09-05-2025 13:35-0400 Heart rate64 /minBenjamin Ball DO Work Phone: [phone]09-05-2025 13:35-0400 Respiratory rate12 /minBenjamin Ball DO Work Phone: [phone]09-05-2025 13:35-0400 Systolic blood veaocsfi532 mm[Hg]Irving Ball DO Work Phone: [phone] [place], [place] 2728106-06-2025 13:56-0400 Body dvhanm129.26 cmKettering Health Miamisburg06-06-2025 13:56-0400Body mass index (BMI) [Ratio]29 kg/k8HeebgeuovKettering Health Miamisburg06-06-2025 13:56-0400Body ftdunb83.13 kgKettering Health Miamisburg06-06-2025 13:56-0400Diastolic blood nsjmrdax44 mm[Hg][facility] 11-30-2024 13:56-0400Heart rate62 /[facility] 11-30-2024 13:56-0400Respiratory rate12 /[facility] 11-30-2024 13:56-0400Systolic blood dpsnnpme703 mm[Hg][facility]05-23-2025 11:27-0400Body .26 cmBenjamin Ball DO Work Phone: [phone]05-23-2025 11:27-0400 Body mass index (BMI) [Ratio]28.8 kg/o2Llftabag Ball DO Work Phone: [phone]05-23-2025 11:27-0400 Body eqtomv18.62 kgBenjamin Ball DO Work Phone: [phone] [place], [place] 2728105-23-2025 11:27-0400 Diastolic blood nbwldnyh94 mm[Hg]Irving Ball DO Work Phone: [phone] [place], [place] 2728105-23-2025 11:27-0400 Diastolic blood vtafzdpz49 mm[Hg][facility]05-23-2025 11:27-0400Heart rate61 /minBenjamin Ball DO Work Phone: [phone] [place], [place] 2728105-23-2025 11:27-0400 Respiratory rate12 /minBenjamin Ball DO Work Phone: [phone] [place], [place] 2728105-23-2025 11:27-0400 Systolic blood zrvmqhaw066 mm[Hg]Irving Ball DO Work Phone: [phone] [place], [place] 2728105-23-2025 11:27-0400 Systolic blood phnqqbko869 mm[Hg][facility]05-05-2025 10:38-0400Body uoqrrr179.26 cmBenjamin Ball DO Work Phone: [phone] [place], [place] 2728105-05-2025 10:38-0400 Body mass index (BMI) [Ratio]28.8 kg/w6Iharuqch Ball DO Work Phone: [phone] [place], [place] 4101805-05-2025 10:38-0400 Body bdrseo78.45 kgBenjamin Ball DO Work Phone: [address] [place], [place] 4101803-26-2025 09:05-0400 Body hpqhov922.26 cmBenjamin Ball DO Work Phone: [phone])[address] [place], [place] 4101803-26-2025 09:05-0400 Body mass index (BMI) [Ratio]28.8 kg/e4Zgyoaruz Ball DO Work Phone: [phone])[address] [place], [place] 4101803-26-2025 09:05-0400 Body lfejta96.56 kgBenjamin Ball DO Work Phone: [phone] [place], [place] 4101803-26-2025 09:05-0400 Diastolic blood otenssgo76 mm[Hg]Irving Ball DO Work Phone: [phone] [place], [place] 4101803-26-2025 09:05-0400 Heart rate53 /minBenjamin Ball DO Work Phone: [phone] [place], [place] 4101803-26-2025 09:05-0400 Respiratory rate12 /minBenjamin Ball DO Work Phone: [phone] [place], [place] 4101803-26-2025 09:05-0400 Systolic blood smquhggh662 mm[Hg]Irving Ball DO Work Phone: [phone] [place], [place] 4101803-05-2025 14:39-0500 Body .3 cmBenjamin Murcek DO Work Phone: [facility] CenterRzyabawzkr17-35-7091 14:39-0500Body mass index (BMI) [Ratio]29.24 kg/u6Cklvgpum Murcek DO Work Phone: [facility] CenterRjewieyonj12-09-2571 14:39-0500Body uodqiv47.81 kgBenjamin Murcek DO Work Phone: [phone] [place], [place] [address]Fqpreyzjit71-46-0577 14:07-0500Body .3 cmBenjamin Murcek DO Work Phone: [phone] [place], [place] [address]Bffdhrkzfq49-89-4572 14:07-0500Body mass index (BMI) [Ratio]29.24 kg/g7Zzwfmcsw Murcek DO Work Phone: [phone] [place], [place] [address]Ditmfqmzgg72-50-9069 14:07-0500Body xwvzuu47.81 kgBenjamin Murcek DO Work Phone: [phone]01-28-2025 14:15-0500Body mass index (BMI) [Ratio]29.24 kg/k1YkkfgreBrendon Baron DO Work Phone: [phone] [place], [place] 7482701-28-2025 14:15-0500 Body skfoib85.81 kgBrendon Baron DO Work Phone: [phone] [place], [place] 7482701-28-2025 14:15-0500 Diastolic blood yxvihzjt59 mm[Hg]Brendon Baron DO Work Phone: [phone] [place], [place] 7482701-28-2025 14:15-0500 Heart rate54 /minBrendon Baron DO Work Phone: [phone] [place], [place] 7482701-28-2025 14:15-0500 Systolic blood rbwqqmen489 mm[Hg]Brendon Baron DO Work Phone: [phone] [place], [place] 7482701-27-2025 13:06-0500 Body rqboec957.3 cmBenjamin Murcek DO Work Phone: [phone] [place], [place] 6675501-27-2025 13:06-0500Body mass index (BMI) [Ratio]29.24 kg/c4Wwgrpqcn Murcek DO Work Phone: [phone])[address] [place], [place] 6675501-27-2025 13:06-0500Body vvyimm68.81 kgBenjamin Murcek DO Work Phone: [phone] [place], [place] [address]Qnnuilswes96-00-0808 14:07-0500Diastolic blood wjvaupfq23 mm[Hg]Pedro Wagner MD Work Phone: [facility] CenterAcwumjuxcf60-15-4681 14:07-0500Systolic blood syjrgzpf867 mm[Hg]Pedro Wagner MD Work Phone: [facility] CenterMcloxlqquw26-75-3347 11:35-0500Body .26 [facility]01-23-2025 11:35-0500Body mass index (BMI) [Ratio]28.8 kg/o6PykrzbvpjKettering Health [facility]burg01-23-2025 11:35-0500Body .56 [facility]01-23-2025 11:35-0500Diastolic blood ycyuokzl37 mm[Hg][facility]01-23-2025 11:35-0500 Heart rate62 /[facility]01-23-2025 11:35-0500 Respiratory rate12 /[facility]01-23-2025 11:35-0500 Systolic blood uzfsfqrx191 mm[Hg][facility]01-14-2025 14:07-0500Body tujkoz230.26 [facility]01-14-2025 14:07-0500Body mass index (BMI) [Ratio]29.1 kg/z5XcyxadlraKettering Health [facility]amisburg01-14-2025 14:07-0500Body vitqyn56.58 kgKettering Health [facility] 07-10-2024 14:07-0500Diastolic blood mrsgesuv39 mm[Hg][facility]01-14-2025 14:07-0500Heart rate59 /[facility] 07-10-2024 14:07-0500Respiratory rate12 /[facility] 07-10-2024 14:07-0500Systolic blood dnaxdzue749 mm[Hg][facility]11-21-2024 08:31-0500Body tgesbp060.26 [facility]11-21-2024 08:31-0500Body mass index (BMI) [Ratio]29.4 kg/h9LuopfwivmKettering Health [facility]amisburg11-21-2024 08:31-0500Body gisvhp41.43 kgKettering Health [facility]burg11-21-2024 08:31-0500Diastolic blood ltlcupto72 mm[Hg] [facility]11-21-2024 08:31-0500Heart rate50 /[facility]11-21-2024 08:31-0500Respiratory rate12 /[facility]11-21-2024 08:31-0500Systolic blood cueocndx599 mm[Hg] [facility]09-23-2024 11:280400Body faolci849.26 cm [facility]09-23-2024 11:280400Body mass index (BMI) [Ratio]29 kg/j6HqztfeqbhKettering Health [facility]burg09-23-2024 11:28040Body weight 89.35 kgK[facility]tering Health [facility]burg09-23-2024 11:040Diastolic blood vogjnacd15 mm[Hg][facility]09-23-2024 11:28040Heart rate55 /[facility]09-23-2024 11:280078EgN7% (BldA) [Mass fraction]96 %[facility]09-23-2024 11:28040 Systolic blood gucfyxtx924 mm[Hg][facility]08-08-2024 11:24040Body cupxwj143.26 cmMD Miriam Juarez Work Phone: [facility]08-08-2024 11:24-0400 Body mass index (BMI) [Ratio]28.8 kg/m2MD Miriam Ann Work Phone: [facility]08-08-2024 11:24040 Body kqoehs78.45 kgMD Miriam Ann Work Phone: [facility]07-08-2024 13:25-0400 Diastolic blood wmtlzayz39 mm[Hg]Radha [address] [place] [address] 01-02-2024 13:25-0400Heart rate49 /minEly [address] [place] [address] 01-02-2024 13:25-0400Systolic blood rjrcqusp808 mm[Hg]Radha 1[facility]07-03-2024 10:27-0400Body lrpbih027.3 cmBrendon Baron DO Work Phone: [facility]07-03-2024 10:27-0400 Body mass index (BMI) [Ratio]28.8 kg/f0HobyujhBrendon Baron DO Work Phone: [facility]07-03-2024 10:27-0400 Body .45 kgWidevin Baron DO Work Phone: [facility]07-03-2024 10:27-0400 Diastolic blood efobcahl87 mm[Hg]Brendon Baron DO Work Phone: [facility]07-03-2024 10:27-0400 Heart rate48 /minBrendon Baron DO Work Phone: [facility]07-03-2024 10:27-0400 Systolic blood souhfgkr807 mm[Hg]Brendon Baron DO Work Phone: [facility]05-21-2024 11:30-0400 Body gmuish908.26 cmDO Irving Ball Work Phone: [facility]05-21-2024 11:30-0400 Body mass index (BMI) [Ratio]29.2 kg/m2DO Irving Ball Work Phone: [phone]05-21-2024 11:30-0400 Body wypyuu57.81 kgDO Irving Ball Work Phone: [phone]05-21-2024 11:30-0400 Diastolic blood mm[Hg]DO Irving Ball Work Phone: [phone]05-21-2024 11:30-0400 Heart rate56 /minDO Irving Ball Work Phone: [phone]05-21-2024 11:30-0400 Respiratory rate12 /minDO Irving Ball Work Phone: 1([phone])[address]05-21-2024 11:30-0400 Systolic blood maacslyx294 mm[Hg]DO Irving Ball Work Phone: 1(404)[address] [place], [place] 4101805-01-2024 10:24-0400 Diastolic blood lfrrdbci34 mm[Hg]DO Irving Ball Work Phone: [phone])[address] [place], [place] 4101805-01-2024 10:24-0400 Heart rate43 /minDO Irving Ball Work Phone: [phone])[address] [place], [place] 4101805-01-2024 10:24-0400 Respiratory rate18 /minDO Irving Ball Work Phone: [phone])[address] [place], [place] 4101805-01-2024 10:24-0400 SaO2% (BldA) [Mass fraction]96 %DO Irving Ball Work Phone: 1(672)[address] [place], [place] 4101805-01-2024 10:24-0400 Systolic blood mm[Hg]DO Irving Ball Work Phone: 1(051)[address] [place], [place] 4101805-01-2024 08:35-0400 Body wxalun805.26 cmDO Irving Ball Work Phone: 1(983)[address] [place], [place] 4101805-01-2024 08:35-0400 Body fndxzy21.35 kgDO Irving Ball Work Phone: 1(562)[address] [place], [place] 4101804-22-2024 14:27-0400 Body lngkei469.26 cmDO Irving Ball Work Phone: 1(665)[address] [place], [place] 4101804-22-2024 14:27-0400 Body mass index (BMI) [Ratio]23.1 kg/m2DO Irving Ball Work Phone: 1(915)[address] [place], [place] 4101804-22-2024 14:27-0400 Body kgDO Irving Ball Work Phone: 1(973)[address] [place], [place] 4101803-29-2024 11:12-0400 Body jzudcs341.26 cmDO Irving Ball Work Phone: 1(928)[address] [place], [place] 4101803-29-2024 11:12-0400 Body mass index (BMI) [Ratio]29.5 kg/m2DO Irving Ball Work Phone: 1(166)[address] [place], [place] 4101803-29-2024 11:12-0400 Body nirnce55.71 kgDO Irving Ball Work Phone: 1419)[address]03-29-2024 11:12-0400 Diastolic blood babittlk41 mm[Hg]DO Irving Ball Work Phone: 1419)[address] [place], [place] 4101803-29-2024 11:12-0400 Heart rate53 /minDO Irving Ball Work Phone: 1419)[address] [place], [place] 4101803-29-2024 11:12-0400 Respiratory rate12 /minDO Irving Ball Work Phone: 1419)[address] [place], [place] 4101803-29-2024 11:12-0400 Systolic blood hovnbyut153 mm[Hg]DO Irving Ball Work Phone: 1419)[address] [place], [place] 4101803-20-2024 09:27-0400 Body zdbwym176.26 cmDO Irving Ball Work Phone: 1(420)[address] [place], [place] 4101803-20-2024 09:27-0400 Body mass index (BMI) [Ratio]30 kg/m2DO Irving Ball Work Phone: 1(353)[address] [place], [place] 4101803-20-2024 09:27-0400 Body olyhbg71.24 kgDO Irving Ball Work Phone: 1(590)[address] [place], [place] 4101803-20-2024 09:27-0400 Diastolic blood kibpjfku43 mm[Hg]DO Irving Ball Work Phone: 1419)[address] [place], [place] 4101803-20-2024 09:27-0400 Heart rate67 /minDO Irving Ball Work Phone: 1(781)[address] [place], [place] 4101803-20-2024 09:27-0400 Respiratory rate16 /minDO Irving Ball Work Phone: 1(073)[address] [place], [place] 4101803-20-2024 09:27-0400 Systolic blood bjdwsrme702 mm[Hg]DO Irving Ball Work Phone: 1(840)[address] [place], [place] 4101802-08-2024 11:00-0500 Body kuvtvt500.26 cmBenjamin Ball Other [facility] [employer] Other 02-08-2024 11:00-0500Body mass index (BMI) [Ratio] 29.89 kg/g5Tlpcxcdp Ball Other [facility] [facility] Other 02-08-2024 11:00-0500Body ybgknf23.81 kgBenjamin Ball Other [facility] [facility] Other 02-08-2024 11:00-0500Diastolic blood muniwmvo73 mm[Hg] Irving Ball Other [facility] [facility] Other 02-08-2024 11:00-0500Respiratory rate12 /minBenjamin Ball Other [place] [employer] Other 02-08-2024 11:00-0500Systolic blood yruhxjmt401 mm[Hg] Irving Ball Other [place] [employer] Other 01-29-2024 13:04-0500Body pxqnqi385.3 cmWidreaana Baron DO Work Phone: [facility]01-29-2024 13:04-0500 Body mass index (BMI) [Ratio]29.98 kg/d9Gexjxcv Tod DO Work Phone: [facility]01-29-2024 13:04-0500 Body vonpzd70.08 kgWidreaana Browndon DO Work Phone: [facility]01-29-2024 13:04-0500 Diastolic blood jujcyzii74 mm[Hg]Brendon Baron DO Work Phone: [facility]01-29-2024 13:04-0500 Heart rate44 /minBrendon Baron DO Work Phone: [facility]01-29-2024 13:04-0500 Systolic blood pbxijzht601 mm[Hg]Brendon Baron DO Work Phone: [facility]11-17-2023 11:15-0500 Body alxaln843.26 cmBenjamin Ball Other [employer] Other [id number] 11:15-0500Body mass index (BMI) [Ratio] 29.15 kg/u8Uazdavao Ball Other [employer] Other 11-17-2023 11:15-0500Body taiqtm73.54 kgBenjamin Ball Other [employer] Other [id number] 11:15-0500Diastolic blood daeemzgn37 mm[Hg] Irving Ball Other [employer] Other 11-17-2023 11:15-0500Respiratory rate12 /minBenjamin Ball Other [employer] Other 11-17-2023 11:15-0500Systolic blood mm[Hg] Irving Ball Other [employer] Other 11-08-2023 11:30-0500Body tzuvgh033.26 cmBenjamin Ball Other [employer] Other 11-08-2023 11:30-0500Body mass index (BMI) [Ratio] 29.12 kg/b4Gblplrgx Ball Other [employer] Other 11-08-2023 11:30-0500Body ohzvoz55.45 kgBenjamin Ball Other [facility] Other 11-08-2023 11:30-0500Diastolic blood cuusyjab13 mm[Hg] Irving Ball Other [facility] [facility] Other 11-08-2023 11:30-0500Respiratory rate12 /minBenjamin Ball Other [place] [employer] Other 11-08-2023 11:30-0500Systolic blood mm[Hg] Irving Ball Other [facility] [employer] Other 10-26-2023 11:11-0400Diastolic blood dlpsuflm80 mm[Hg] DO Irving Ball Work Phone: 1(179)[address]10-26-2023 11:11-0400 Heart rate51 /minDO Irving Ball Work Phone: 1(271)227-[address] [place], [place] 2728110-26-2023 11:11-0400 Respiratory rate16 /minDO Irving Ball Work Phone: 1(261)702-[address] [place], [place] 2728110-26-2023 11:11-0400 SaO2% (BldA) [Mass fraction]95 %DO Irving Ball Work Phone: 1(085)[address]10-26-2023 11:11-0400 Systolic blood vxebvjkp692 mm[Hg]DO Irving Ball Work Phone: 1(438)[address]10-26-2023 08:03-0400 Body .26 cmDO Irving Ball Work Phone: 1(972)398-[address] [place], [place] 2728110-26-2023 08:03-0400 Body agxbzrqenkb19.2 [degF]DO Irving Ball Work Phone: 1(774)036-[address] [place], [place] 2728110-26-2023 08:03-0400 Body naqhhb36.18 kgDO Irving Ball Work Phone: 1(578)[address]09-05-2023 15:30-0400 Body hkmagd791.26 cmLluciano Hines Other [employer] Other 09-05-2023 15:30-0400Body mass index (BMI) [Ratio] 28.94 kg/s1Aypvwdywthony Hines Other [employer] Other 09-05-2023 15:30-0400Body ufoabz00.91 kgLawrsinai Hines Other [employer] Other 09-05-2023 15:30-0400Diastolic blood tlzortem47 mm[Hg] Markell Hines Other [employer] Other 09-05-2023 15:30-0400Systolic blood otemiqmr917 mm[Hg] Markell Hines Other [employer] Other 08-08-2023 11:30-0400Body pudkba993.26 cmBenjamin Ball Other [employer] Other 08-08-2023 11:30-0400Body mass index (BMI) [Ratio] 28.91 kg/y5Kxzvwxat Ball Other [employer] Other 08-08-2023 11:30-0400Body mceicd17.81 kgBenjamin Ball Other [employer] Other 08-08-2023 11:30-0400Diastolic blood mhrqegip27 mm[Hg] Irving Ball Other [employer] Other 08-08-2023 11:30-0400Respiratory rate12 /minBenjamin Ball [facility] 08-08-2023 11:30-0400Systolic blood tfsomgld290 mm[Hg] Irving Ball [facility] Other 07-10-2023 11:01-0400Heart rate46 /minBenjamin E Ball Work Phone: mp109-5784HL-Jtqez [place] [employer] 250 DO Work Phone: 1(860) 625-561607-10-2023 10:58-0400Body ewjjsg682.26 cmBenjamin E Ball Work Phone: mp235-0796MY-Ydrjr [place] [employer] 250 DO Work Phone: 1(451) 308-614707-10-2023 10:58-0400Body mass index (BMI) [Ratio] 29.24 kg/u9Nlnlckzg E Ball Work Phone: mp272-4078VX-Hdfvd [place] [employer] 250 DO Work Phone: 1(107) 683-409107-10-2023 10:58-0400Body surface area Derived from formula2.06 m6Qdjmayyo E Ball Work Phone: mp442-7942XL-Fmgpe [place] [employer] 250 DO Work Phone: 1(458) 700-430407-10-2023 10:58-0400Body .81 kgBenjamin E Ball Work Phone: mp469-1100UD-Ekvdm [place] [employer] 250 DO Work Phone: 1(609) 630-542107-10-2023 10:58-0400Diastolic blood mm[Hg] Irving E Ball Work Phone: mp005-7504QZ-Tibgc [place] [employer] 250 DO Work Phone: 1(529) 966-864607-10-2023 10:58-0400Systolic blood wvuhbhvo780 mm[Hg] Irving E Ball Work Phone: mp763-4744ET-Ttnug [place] [employer] 250 DO Work Phone: 1(305) 197-757606-14-2023 11:55-0400Diastolic blood gntyhupt68 mm[Hg] Irving E Ball Work Phone: mp869-8374OE-Eqzcd [place] [facility] [address] DO Work Phone: 1(524) 264-225106-14-2023 11:55-0400Heart rate52 /minBenjamin E Ball Work Phone: mp928-8060OQ-Bjqnb [place] [facility] 250 DO Work Phone: 1(316) 596-812106-14-2023 11:55-0400Systolic blood voczbgkg228 mm[Hg] Irving E Ball Work Phone: mp997-0992LG-Uxlqk [place] [facility] 250 DO Work Phone: 1(616) 454-482306-14-2023 11:54-0400Body ruajnc119.26 cmBenjamin E Ball Work Phone: mp140-2968LB-Gitjt [place] [employer] [address] DO Work Phone: 1(802) 740-947106-14-2023 11:54-0400Body mass index (BMI) [Ratio] 29.24 kg/b5Lgrdbbuw E Ball Work Phone: mp939-6424KI-Oayvk [place] [employer]-[place] 250 DO Work Phone: 1(402) 873-238106-14-2023 11:54-0400Body surface area Derived from formula2.06 w2Nvwoqnrv E Ball Work Phone: mp931-6244PA-XitirEl[facility] 250 DO Work Phone: 1(738) 634-875706-14-2023 11:54-0400Body loxcuf57.81 kgBenjamin E Ball Work Phone: mp561-1399EC-Fkegx [place] [employer] 250 DO Work Phone: 1(234) 688-926006-14-2023 11:54-0400Diastolic blood pipgifkk21 mm[Hg] Irving E Ball Work Phone: mp673-3439YY-Ldzhz [place] [facility] [address] DO Work Phone: 1(357) 678-231406-14-2023 11:54-0400Systolic blood fpxuchsn231 mm[Hg] Irving E Ball Work Phone: mp547-9147UU-Dezuo [place] [facility] [address] DO Work Phone: 1(463) 823-635506-05-2023 09:30-0400Body fknzel714.26 cmBenjamin E Ball Work Phone: mp662-2122HI-HloqxCannon [facility] 250 DO Work Phone: 1(945) 439-562306-05-2023 09:30-0400Body mass index (BMI) [Ratio] 29.09 kg/d3Gtextgmg E Ball Work Phone: mp573-4226IC-CyvrnNew Ulm Medical Centery 250 DO Work Phone: 1(561) 436-846506-05-2023 09:30-0400Body surface area Derived from formula2.05 j9Lgdxgpkb E Ball Work Phone: mp461-2225DP-[place]qwziEm[place] [address] DO Work Phone: 1(349) 981-265506-05-2023 09:30-0400Body uwcdxf38.36 kgBenjamin E Ball Work Phone: 1(592) 840-8585155-7788VU-FbofeHeather [place] [address] DO Work Phone: 1(741) 372-282606-05-2023 09:30-0400Diastolic blood kpezclhx28 mm[Hg] Irving E Ball Work Phone: mp198-4598ZO-HutywC[facility] 250 DO Work Phone: 1(588) 275-889406-05-2023 09:30-0400Heart rate44 /minBenjamin E Ball Work Phone: mp378-3247ZI-HtrnmNew Ulm Medical Centery 250 DO Work Phone: 1(523)462-869-393496-73 09:30-0400Systolic blood xockvoyi117 mm[Hg] Irving E Ball Work Phone: mp072-3283AN-LydjyNew Ulm Medical Centery 250 DO Work Phone: 1(296) 254-230905-09-2023 12:30-0400Body cyqtyf169.26 cmBenjamin Ball Other [place] [employer] Other 05-09-2023 12:30-0400Body mass index (BMI) [Ratio] 28.88 kg/x8Rfvooqtu Ball Other [facility] [facility] Other 05-09-2023 12:30-0400Body dxabsc64.72 kgBenjamin Ball Other [place] [employer] Other 05-09-2023 12:30-0400Diastolic blood yvhdgoda62 mm[Hg] Irving Ball Other [place] [employer] Other 05-09-2023 12:30-0400Respiratory rate12 /minBenjamin Ball Other [place] [employer] [facility] Other 05-09-2023 12:30-0400Systolic blood hbjfqyag267 mm[Hg] Irving Ball Other [place] [employer] Other 05-04-2023 21:03-0400Diastolic blood ppirvcwa69 mm[Hg] DO Irving Ball Work Phone: [facility]05-04-2023 21:03-0400 Heart rate57 /minDO Irving Ball Work Phone: [facility]05-04-2023 21:03-0400 Respiratory rate16 /minDO Irving Ball Work Phone: [facility]05-04-2023 21:03-0400 SaO2% (BldA) [Mass fraction]96 %DO Irving Ball Work Phone: [facility]05-04-2023 21:03-0400 Systolic blood zsesihrh914 mm[Hg]DO Irving Ball Work Phone: [facility]05-04-2023 20:17-0400 Body vpulqr002.26 cmDO Irving Ball Work Phone: [facility]05-04-2023 20:17-0400 Body sanposcqmji61.3 [degF]DO Irving Ball Work Phone: [facility]05-04-2023 20:17-0400 Body .7 kgDO Irving Ball Work Phone: [facility]05-02-2023 14:30-0400 Body jisswr454.26 cmBenjamin Ball Other [place] [employer] Other 05-02-2023 14:30-0400Body mass index (BMI) [Ratio] 29.32 kg/v7Npxqxqfo Ball Other [place] [employer] Other 05-02-2023 14:30-0400Body guiwjr29.08 kgBenjamin Ball Other [place] [employer] Other 05-02-2023 14:30-0400Diastolic blood afkkepta13 mm[Hg] Irving Ball Other [place] [employer] Other 05-02-2023 14:30-0400Systolic blood vypfmsor907 mm[Hg] Irving Ball Other [employer] Other 04-07-2023 09:45-0400Body cjiofn997.26 cmBenjamin Ball Other [place] [employer] Other 04-07-2023 09:45-0400Body mass index (BMI) [Ratio] 29.41 kg/a4Rlneikcc Ball Other [employer] Other 04-07-2023 09:45-0400Body oikgwb50.36 kgBenjamin Ball Other [employer] Other 04-07-2023 09:45-0400Diastolic blood kmydxdpn23 mm[Hg] Irving Ball Other [employer] Other 04-07-2023 09:45-0400Respiratory rate12 /minBenjamin Ball Other [employer] Other 04-07-2023 09:45-0400Systolic blood vngpinkk906 mm[Hg] Irving Ball Other [employer] Other 03-09-2023 11:30-0500Body mzglda124.26 cmBenjamin Ball Other [employer] Other 03-09-2023 11:30-0500Body mass index (BMI) [Ratio]29.5 kg/s6Kwtvfdxf Ball Other [employer] Other 03-09-2023 11:30-0500Body nhiqqt72.63 kgBenjamin Ball Other [employer] Other 03-09-2023 11:30-0500Diastolic blood kccyhbja48 mm[Hg] Irving Ball Other [employer] Other 03-09-2023 11:30-0500Respiratory rate12 /minBenjamin Ball Other [employer] Other 03-09-2023 11:30-0500Systolic blood jkofdzmc302 mm[Hg] Irving Ball Other [employer] Other 02-22-2023 09:45-0500Body duoime871.26 cmBenjamin Ball Other [employer] Other 02-22-2023 09:45-0500Body mass index (BMI) [Ratio] 29.59 kg/t6Upnjznly Ball Other [employer] Other 02-22-2023 09:45-0500Body oywyig63.9 kgBenjamin Ball Other [facility] [facility] Other 02-22-2023 09:45-0500Diastolic blood kyygybwi98 mm[Hg] Irving Ball Other [facility] [facility] Other 02-22-2023 09:45-0500Respiratory rate12 /minBenjamin Ball Other [place] [employer] Other 02-22-2023 09:45-0500Systolic blood mm[Hg] Irving Ball Other [place] [employer] Other 01-19-2023 10:06-0500Body upaysn121.26 cmBenjamin E Ball Work Phone: 1(350) 775-1338296-3492JP-Dzlux [place] [employer] 250 DO Work Phone: 1(869) 336-906301-19-2023 10:06-0500Body mass index (BMI) [Ratio] 28.94 kg/h3Cntzittv E Ball Work Phone: 1(252) 652-4918393-8727CM-Ddaae [place] [employer] 250 DO Work Phone: 1(707) 785-932901-19-2023 10:06-0500Body surface area Derived from formula2.05 k5Dtkjmoov E Ball Work Phone: 1(723) [phone]-Ljxyx [place] [employer] 250 DO Work Phone: 1(447) 826-448501-19-2023 10:06-0500Body iqutgg04.91 kgBenjamin E Ball Work Phone: 1(201) 301-1084858-6270JI-Dswxw [place] [employer] 250 DO Work Phone: 1(966) 188-217401-19-2023 10:06-0500Diastolic blood xvgupocm06 mm[Hg] Irving E Ball Work Phone: 1(763) 113-6074889-6859NO-Sonud [place] [facility] 250 DO Work Phone: 1(722) 939-321701-19-2023 10:06-0500Heart rate50 /minBenjamin E Ball Work Phone: mp625-1735BJ-Rxzkg [place] [facility] 250 DO Work Phone: 1(603) 129-721901-19-2023 10:06-0500Systolic blood vuhxgirb830 mm[Hg] Irving E Ball Work Phone: mp304-0887TJ-JoewyEl[facility] 250 DO Work Phone: 1(380) 173-778407-12-2022 13:30-0400Body wikolg214.26 cmBenjamin E Ball Work Phone: mp607-6023ZO-KqwgnElbow Lake Medical Center-[place] 250 DO Work Phone: 1(495) 746-754007-12-2022 13:30-0400Body mass index (BMI) [Ratio] 29.09 kg/o0Ulqrtbuj E Ball Work Phone: mp083-4762GW-BzbexElbow Lake [facility]-[place] 250 DO Work Phone: 1(589) 861-535907-12-2022 13:30-0400Body surface area Derived from formula2.05 a0Lkzmrizc E Ball Work Phone: mp022-1657WM-HgjvmTyler Hospitalusky 250 DO Work Phone: 1(131) 532-621407-12-2022 13:30-0400Body mkltom32.36 kgBenjamin E Ball Work Phone: mp824-1856DB-CztjtTyler Hospitalusky 250 DO Work Phone: 1(536) 414-384007-12-2022 13:30-0400Diastolic blood pvyiwbgu94 mm[Hg] Irving E Ball Work Phone: mp635-6899FE-Xdgbf [place] [facility] 250 DO Work Phone: 1(745) 303-547207-12-2022 13:30-0400Heart rate50 /minBenjamin E Ball Work Phone: mp787-2199NF-Pmrsv [place] [facility] 250 DO Work Phone: 1(708) 545-134707-12-2022 13:30-0400Systolic blood ushngkok248 mm[Hg] Irving E Ball Work Phone: mp514-8099VT-Noupw [place] [facility] 250 DO Work Phone: 1(112) 668-990306-20-2022 12:42-0400Body .26 cmBenjamin E Ball Work Phone: mp545-8484BN-Wfqca [place] [facility] 250 DO Work Phone: 1(572) 759-730706-20-2022 12:42-0400Body mass index (BMI) [Ratio] 28.65 kg/w3Khifoesw E Ball Work Phone: mp461-7559TM-Lueai [place] [facility] 250 DO Work Phone: 1(728) 381-511106-20-2022 12:42-0400Body surface area Derived from formula2.04 x1Rujepnuq E Ball Work Phone: mp774-2828ZL-Wyldo [place] [facility] 250 DO Work Phone: 1(376) 696-209806-20-2022 12:42-0400Body kgBenjamin E Ball Work Phone: 1(525) 628-6580165-1470XD-Unvxi [place] [facility] 250 DO Work Phone: 1(858) 372-924106-20-2022 12:42-0400Diastolic blood fnfdumtf57 mm[Hg] Irving E Ball Work Phone: mp075-5039QJ-Pgchd [place] [facility] 250 DO Work Phone: 1(778) 713-641206-20-2022 12:42-0400Heart rate50 /minBenjamin E Ball Work Phone: 1(914) 152-2412873-9622VP-Dslwu [place] [facility] 250 DO Work Phone: 1(869) 632-791406-20-2022 12:42-0400Systolic blood ssekoass235 mm[Hg] Irving E Ball Work Phone: mp342-7902OD-Kqgxb [place] [facility] 250 DO Work Phone: 1(798) 579-284006-20-2022 08:42-0400Body ugslxg762.26 cmBenjamin E Ball Work Phone: 1(827) 379-4036536-3443GM-Kbrzj [place] [facility] 250 DO Work Phone: 1(944) 307-465906-20-2022 08:42-0400Body mass index (BMI) [Ratio] 28.65 kg/e5Ikekiznm E Ball Work Phone: mp693-8600FX-ObsqpC[facility] 250 DO Work Phone: 1(776) 860-490606-20-2022 08:42-0400Body surface area Derived from formula2.04 y0Uvapamov E Ball Work Phone: 1(180) 349-9697567-7526HI-NcdszHe[place] [address] DO Work Phone: 1(525) 938-113306-20-2022 08:42-0400Body ctbwfa94 kgBenjamin E Ball Work Phone: 1(626) 490-7343238-1933BM-HocslHeather [place] [address] DO Work Phone: 1(930) 245-389406-20-2022 08:42-0400Diastolic blood ijtmvgbp74 mm[Hg] Irving E Ball Work Phone: 1(249) 125-8063226-2444PQ-TsyjlHe[place] [address] DO Work Phone: 1(566) 291-445606-20-2022 08:42-0400Heart rate49 /minBenjamin E Ball Work Phone: mp979-4005ZL-NnlnpEmily [place] [address] DO Work Phone: 1(639) 326-789906-20-2022 08:42-0400Systolic blood mhtjxwix729 mm[Hg] Irving E Ball Work Phone: 1(410) 439-9333992-6411GF-LunhnHeather [place] [address] DO Work Phone: 1(232) 157-201004-22-2022 14:16-0400Body ilhmrv907.26 cmBenjamin E Ball Work Phone: 1(553) 490-1330602-4890OA-YruynChildren's [place] 250 DO Work Phone: 1(108) 748-666004-22-2022 14:16-0400Body mass index (BMI) [Ratio] 29.54 kg/a4Hwqourxy E Ball Work Phone: 1(806) 237-8808744-3251CT-YkkjtChildren's [place] 250 DO Work Phone: 1(130) 624-669804-22-2022 14:16-0400Body surface area Derived from formula2.07 r6Vejdvpyo E Ball Work Phone: 1(448) 260-3639788-3788SC-Scuti [place] [facility] 250 DO Work Phone: 1(828) 557-995604-22-2022 14:16-0400Body pskozv24.72 kgBenjamin E Ball Work Phone: 1(104) 884-5959634-2598ZD-Mtsef [place] [facility] 250 DO Work Phone: 1(908) 658-905704-22-2022 14:16-0400Diastolic blood mm[Hg] Irving E Ball Work Phone: 1(877) 325-1574624-9281ZL-Nyzik [place] [facility] 250 DO Work Phone: 1(749) 524-994104-22-2022 14:16-0400Heart rate59 /minBenjamin E Ball Work Phone: 1(430) 324-7097300-8773EG-DyzhmJohnson [facility] 250 DO Work Phone: 1(783) 122-231004-22-2022 14:16-0400Systolic blood mm[Hg] Irving E Ball Work Phone: 1(294) [phone]-Leaei [place] [facility] 250 DO Work Phone: 1(523) 727-526304-13-2022 09:36-0400Body .26 cmBenjamin E Ball Work Phone: 1(612) [phone]-BgtqtJohnson [facility]-[place] 250 DO Work Phone: 1(568) 764-519604-13-2022 09:36-0400Body mass index (BMI) [Ratio] 28.86 kg/b4Aepafwsh E Ball Work Phone: 1(303) 957-9790377-0300VE-Hjmnp [place] [facility] 250 DO Work Phone: 1(963) 428-947604-13-2022 09:36-0400Body surface area Derived from formula2.05 n9Vvndzvbf E Ball Work Phone: 1(655) [phone]-Sgrje [place] [facility] 250 DO Work Phone: 1(521) 162-913204-13-2022 09:36-0400Body cquamw65.63 kgBenjamin E Ball Work Phone: 1(953) 900-5674041-1643OF-RwqbmCannon Falls Hospital [facility] Clinic 250 DO Work Phone: 1(204) 310-630904-13-2022 09:36-0400Diastolic blood mm[Hg] Irving E Ball Work Phone: mp523-5043TB-OygruElbow Lake [facility] 250 DO Work Phone: 1(361) 541-959504-13-2022 09:36-0400Heart rate68 /minBenjamin E Ball Work Phone: 1(857) [phone]-EpxgmRidgeview Sibley Medical Centery 250 DO Work Phone: 1(358) 679-125004-13-2022 09:36-0400Systolic blood vegctiey585 mm[Hg] Irving E Ball Work Phone: mp069-9898EH-EvlinNew Ulm Medical Centery [facility] DO Work Phone: 1(572) 300-816703-09-2022 09:57-0500Body zzscre800.26 cmBenjamin E Ball Work Phone: 1(322) [phone]-NnfinRidgeview Sible[facility] Medical Centery [facility] DO Work Phone: 1(781) 708-140603-09-2022 09:57-0500Body mass index (BMI) [Ratio] 29.39 kg/n0Hhufcnex E Ball Work Phone: mp545-8012XJ-LotusTyler Hospitalusky [facility] DO Work Phone: 1(595) 902-101503-09-2022 09:57-0500Body surface area Derived from formula2.06 v3Mksikccg E Ball Work Phone: 1(243) [phone]-FyvyjRidgeview Sibley Medical Centery [facility] DO Work Phone: 1(858) 290-665103-09-2022 09:57-0500Body hegfwy32.27 kgBenjamin E Ball Work Phone: mp622-2310SM-XxmjfElbow Lake Medical CenterKari 250 DO Work Phone: 1(564) 632-844003-09-2022 09:57-0500Diastolic blood pwledziv13 mm[Hg] Irving E Ball Work Phone: mp854-5234EY-DdytwNew Ulm Medical Centery 250 DO Work Phone: 1(313) 596-675203-09-2022 09:57-0500Diastolic blood mm[Hg]Irving E Ball Work Phone: mp763-4294PQ-Klhse [place] [facility] 250 DO Work Phone: 1(778)026-08331-273879-40333765-36-8622 09:57-0500Systolic blood mm[Hg] Irving E Ball Work Phone: mp419-1760WF-VhminElbow Lake Medical Center-[facility] 250 DO Work Phone: 1(494)283-06078-407667-11086226-09-8954 09:57-0500Systolic blood xjxotagy844 mm[Hg] Irving Mariel Ball Work Phone: mp046-2014OA-[facility]bm[facility]El[facility] 250 DO Work Phone: 1(849)[phone]-2565 09:57-0500Systolic blood pprsskre061 mm[Hg] Irving E Ball Work Phone: 1(390) [phone]-[facility]azsxJohnson [facility] 250 DO Work Phone: 1(735)002-223-089065-71 09:57-736497 1Benjamin E Ball Work Phone: 1(613) [phone]-PghiuJohnson [facility] 250 DO Work Phone: Comment on above:[id number] 09:57-582541 1Benjamin E Ball Work Phone: mp513-6277PZ-AbtbbElbow [facility]-[place] 250 DO Work Phone: Comment on above:[id number] 11:57-0500Body .26 cmBenjamin E Ball Work Phone: 1(899) [phone]-TqkbfJohnson [facility] [facility] DO Work Phone: 1(796) 473-532901-05-2022 11:57-0500Body mass index (BMI) [Ratio]28.8 kg/i6Nmmvaywy E Ball Work Phone: 1(147) [phone]-HrvlpJohnson [facility] 250 DO Work Phone: 1(940) 740-245401-05-2022 11:57-0500Body surface area Derived from formula2.04 x5Bzvskhzr E Ball Work Phone: mp370-1191AO-Oiull [place] [employer]-[place] 250 DO Work Phone: 1(259) 284-964101-05-2022 11:57-0500Body wmeiah27.45 kgBenjamin E Ball Work Phone: mp830-8840WD-QwjusElbow [facility]-[place] 250 DO Work Phone: 1(197) 351-688301-05-2022 11:57-0500Diastolic blood qghcditg36 mm[Hg] Irving E Ball Work Phone: mp048-0338UQ-Zkoxs [place] [employer]-[place] 250 DO Work Phone: 1(424) 146-986501-05-2022 11:57-0500Heart rate42 /minBenjamin E Ball Work Phone: mp218-5653GC-Xhhws [place] [employer] 250 DO Work Phone: 1(959) 633-755301-05-2022 11:57-0500Systolic blood zjoaltfd497 mm[Hg] Irving E Ball Work Phone: mp544-1361XR-Bhfks [place] DO Work Phone: Encounters Encounter DateEncounter [facility] ProviderFacilityStart: 03-05-2025 End: 13-72-3920Dbebjc flowsheetEmroosevelt Girard MD Work Phone: noMS [facility]ologyStart: 03-05-2025 End: 44-06-3623Utvmol flowsheetEmroosevelt Girard MD Work Phone: no [facility]ologyStart: 03-05-2025 End: 77-65-2700Tujzko outpatient visit 15 minutesEmroosevelt Girard MD Work Phone: noMS [facility] DermatologyComment on above:Seborrheic keratosis (Primary Dx); Neoplasm of unspecified behavior of bone, soft tissue, and skin; Actinic keratosis; Lentigines; History of malignant melanoma of skinStart: 03-05-2025 End: 59-26-6928ixkjiwxghoSDBPN A PETITTINot AvailableStart: 03-01-2025 End: 28-39-9224pswdafznqbJsmeikdu Rola DO Work Phone: [facility] Work Phone: Start: 03-01-2025 End: 04-34-9013Wypbkck encounter procedureBentania Canela DO-[facility] Work Phone: Start: 11-30-2024 End: 48-70-0019tbmexndxpmCxngpvvhpOhio State Health System Work Phone: Start: 11-30-2024 End: 81-63-2632Tanfipf encounter procedureSampson [facility] Phys[facility] GroupSt[facility] Work Phone: Start: 11-29-2024 End: 27-12-6054Awmmzv flowsheetEmroosevelt Girard MD Work Phone: noms SWS DERMStart: 11-29-2024 End: 57-94-1260Ioeulf flowsheetEmroosevelt Girard MD Work Phone: noms SWS DERMStart: 11-29-2024 End: 44-99-8753Arpzbg outpatient visit 15 minutesEmily Chanel Girard MD Work Phone: noms [facility] DERMComment on above:Seborrheic keratosis (Primary Dx); Lentigines; History of malignant melanoma of skin; History of basal cell carcinoma; History of SCC (squamous cell carcinoma) of skin; Actinic keratosis; Inflammatory papuleStart: 11-29-2024 End: 95-01-9202bxkxuyiwlqRHMNL A PETITTINot AvailableStart: 11-16-2024 End: 10-98-5459aisafaxifgXvecvcbz Rola DO Work Phone: [facility] Work Phone: Start: 11-16-2024 End: 11-89-7329Aqxjlof encounter procedureBentania Canela DO Work Phone: firsent[facility] Phys[facility] GroupSt[facility] Work Phone: Start: 10-29-2024 End: 63-28-8121kwtbbzztbgQhwbtqdy Ball DO Work Phone: [facility] Work Phone: Start: 10-29-2024 End: 45-80-0284Evyevfb encounter procedureBentania Ball DO Work Phone: [facility] Work Phone: Start: 31-86-4458Mzy-patient / Non-visitBentania Ball DO Work Phone: [facility] GroupMilitary Health System Professional [facility] Work Phone: Start: 94-83-8434Gbf-patient / Non-visitBentania Ball DO Work Phone: [facility] GroupMilitary Health System Professional [facility] Work Phone: Start: 09-19-2024 End: 82-67-2811dnmfswhistYlpoakey Ball DO Work Phone: [facility] Work Phone: Start: 09-19-2024 End: 98-27-5260Zgqvlbq encounter procedureBentania Canela DO Work Phone: [facility] GroupPage [facility] Work Phone: Start: 08-29-2024 End: 84-49-7245Txdpxl follow up visit related to original pxBenjamin W Murcek DO Work Phone: noms ENT SANDUSKYComment on above:Mohs defect of neck (Primary Dx)Start: 08-29-2024 End: 61-48-1275hqhgakiaebPCSUODZL W MURCEKNot AvailableStart: 08-29-2024 End: 97-95-1510Vmtwys flowsheetBenjamin W Murcek DO Work Phone: noms ENT SANDUSKYStart: 08-29-2024 End: 19-96-6108Inygcl flowsheetBenjamin W Murcek DO Work Phone: NORL ENT SANDUSKYStart: 93-17-3321Ydy-patient / Non-visitIrving Canela DO Work Phone: [facility] Work Phone: Start: 08-28-2024 End: 35-40-3534Nohhvvg encounter procedureBejia Canela DO Work Phone: [facility]-Respiratory Therapy Work Phone: Start: 08-28-2024 End: 67-66-0186weijgsqbkeT Murali Alvaradocility:[facility] Hospitaltart: 08-27-2024 End: 78-99-4787Ztauwc flowsheetEmroosevelt Girard MD Work Phone: noms SWS DERMStart: 08-27-2024 End: 29-77-5605Ozbaki flowsheetEmroosevelt Girard MD Work Phone: noms SWS DERMStart: 08-27-2024 End: 87-32-8513Pkoslp outpatient visit 15 minutesEmily Chanel Girard MD Work Phone: noms SWS DERMComment on above:Seborrheic keratosis (Primary Dx); Lentigines; Actinic keratosis; History of malignant melanoma of skinStart: 08-27-2024 End: 15-95-1608yzhoaohjkiFNWGV A PETITTINot AvailableStart: 08-01-2024 End: 02-40-9831Avpdiv follow up visit related to original pxBenjamin W Murcek DO Work Phone: noms ENT SANDUSKYComment on above:Mohs defect of neck (Primary Dx)Start: 08-01-2024 End: 94-78-7206Ijvtjo flowsheetBenjamin W Murcek DO Work Phone: noms ENT SANDUSKYStart: 08-01-2024 End: 78-60-9255Xfclow flowsheetBenjamin W Murcek DO Work Phone: NOMS ENT SANDUSKYStart: 08-01-2024 End: 50-08-8464ajychfoifjSFSLGCAD W MURCEKNot AvailableStart: 12-44-7899Keg- patient / Non-visitBenjamin Ball DO Work Phone: [facility] Physician [facility] Work Phone: Start: 70-92-2623Wfw-patient / Non-visitBenjamin Ball DO Work Phone: [facility] Physician [facility] Work Phone: Start: 24-11-5831Jad-patient / Non-visitBenjamin Ball DO Work Phone: [facility] Physician [facility] Work Phone: Start: 22-38-8503Itv-patient / Non-visitBenjamin Ball DO Work Phone: [facility] Physician [facility] Work Phone: Start: 07-25-2024 End: 37-06-5346etscigtckpUZQPLEVX W MURCEKNot AvailableStart: 07-24-2024 End: 55-53-3423Xojaeu outpatient visit [address] [facility] HospitalwandaThe Hospitals of [facility] DO Work Phone: uh FirelandsComment on above:Coronary artery disease involving peoria coronary artery of peoria heart without angina pectoris; Bradycardia; H/O non-ST elevation myocardial infarction (NSTEMI); S/P PTCA (percutaneous transluminal coronary angioplasty); High risk medication use; Paroxysmal atrial fibrillation (Multi); Mixed hyperlipidemia; Former smoker; BMI 29.0-29.9,adultStart: 07-24-2024 End: 15-45-3605lrxbiozbxlZMXBHTCHabersham Medical Center AmbulatoryStart: 07-23-2024 End: 95-18-3221Rycwvh flowsheetBenjamin W Murcek DO Work Phone: NORE ENT SANDUSKYStart: 07-23-2024 End: 02-35-0021Qrjaih flowsheetBenjamin W Murcek DO Work Phone: noms ENT SANDUSKYStart: 07-23-2024 End: 69-91-8000Wbazxw outpatient new 45 minutesBentania Fonseca DO Work Phone: noms ENT SANDUSKYComment on above:Mohs defect of neck Start: 07-23-2024 End: 26-77-7659qsfggggpdaZBZTZNMC Alfred CHEVYot AvailableStart: 07-19-2024 End: 40-90-9278rdwxkmaehbADLALL E FLEMINGNot AvailableStart: 07-19-2024 End: 55-06-8081Jlzofdq encounter procedurePedro Wagner MD Work Phone: noms SWS DERMComment on above:Basal cell carcinoma of skin of scalp and neck (Primary Dx)Start: 07-19-2024 End: 20-78-2912mcbracnunwBlgxbubdwMercy Health St. [facility] Work Phone: Start: 07-19-2024 End: 28-27-1438Owdrjyd encounter procedureSampson Regional Medical Center Physician GroupSt. [facility] Work Phone: Start: 07-10-2024 End: 70-25-1591sljoempfgtNkuhsuiisMercy Health St. [facility]'s [facility] Work Phone: Start: 07-10-2024 End: 73-99-5275Hzkymrx encounter procedureSampson [facility] Physician [facility] Work Phone: Start: 05-21-2024 End: 25-09-7039Wtloqq Susan Girard MD Work Phone: noms SWS DERMStart: 05-21-2024 End: 74-57-4212Xdtakk Susan Girard MD Work Phone: noms SWS DERMStart: 05-21-2024 End: 20-36-7648Bjodmz outpatient visit 15 minutesEmroosevelt Girard MD Work Phone: noms SWS DERMComment on above:Seborrheic keratosis (Primary Dx); Lentigines; History of SCC (squamous cell carcinoma) of skin; History of malignant melanoma of skin; Actinic keratosis; Neoplasm of unspecified behavior of bone, soft tissue, and skinStart: 05-21-2024 End: 19-70-9383xrgipejnspLILKD A PETITTINot AvailableStart: 05-17-2024 End: 64-42-8650fzjsjbcmzxIierpkbwyMercy Health St. [facility]'s [facility] Work Phone: Start: 05-17-2024 End: 55-99-8136Otoshgz encounter procedureSampson Regional Medical Center Physician GroupSt. [facility] Work Phone: Start: 46-43-3388Ger-patient / Non-visitSampson Regional Medical Center Physician Group-[facility] Work Phone: Start: 03-29-2024 End: 48-37-2498Obxwgfb evaluation of patient and reportBreath Test Sree Cp Nsg Wl Work Phone: [facility] Comment on above:Diarrhea, unspecified type (Primary Dx)Start: 03-19-2024 End: 44-38-0864kxrufqrpobOtmigktonMercy Health St. [facility]'s [facility] Work Phone: Start: 03-19-2024 End: 68-30-6164Stnxmkg encounter procedureSampson Regional Medical [facility] Physician [facility] Work Phone: Start: 02-14-2024 End: 02-89-4618Cvvtjq flowsheetEmroosevelt Girard MD Work Phone: noms SWS DERMStart: 02-14-2024 End: 14-33-5334Jmkrnd flowsheetEmroosevelt Girard MD Work Phone: noms SWS DERMStart: 02-14-2024 End: 80-63-3838Zbunes outpatient visit 25 minutesEmroosevelt Girard MD Work Phone: noms [facility] DERMComment on above:Drug-induced photosensitivity (Primary Dx); Seborrheic keratosis; Lentigines; Actinic keratosis; History of malignant melanoma of skinStart: 02-13-2024 End: 21-11-5915qeyrzdnyauTmhjtdz R WATERSFacility:EU BellevueStart: 02-13-2024 End: 83-05-2591Khfaeiu encounter procedurePafannie CHAIREZ [facility] start: 02-02-2024 End: 35-94-0607gaohbljoteHB Miriam Juarez Work Phone: [facility] Work Phone: Start: 02-02-2024 End: 54-82-9402Fjwspxi encounter procedureMD Miriam Juarez Work Phone: [facility] Physician Group-[facility] Gastroenterology Work Phone: Start: 01-02-2024 End: 46-09-0296Argcsxndjn hospital visit by Maricarmen Pierce Stress Room 1 [facility] HospitalComment on above:Chest pain, unspecified typeStart: 01-02-2024 End: 78-87-8195wpxldbandgPNYRSYUACMC Healthcare System Glenbeightart: 12-28-2023 End: 40-40-2780Rxaron outpatient visit 25 [facility] Work Phone: [facility]Comsturgis hospital on above:Coronary artery disease involving pe[place] coronary artery of pe[place] heart without angina pectoris; Bradycardia; S/P PTCA (percutaneous transluminal coronary angioplasty); H/O non-ST elevation myocardial infarction (NSTEMI); Paroxysmal atrial fibrillation (Multi); High risk medication use; Hypertension, benign; Mixed hyperlipidemia; BMI 28.0-28.9,adult; Former smoker; Chest pain, unspecified typeStart: 12-28-2023 End: 12-08-1797jqhfwnyrfgXLIXXJRHabersham Medical Center AmbulatoryStart: 70-35-7276Red-patient / Non-visitMD Miriam Juarez Work Phone: [facility] Phys[facility] GroupMilitary Health System Professional Co Work Phone: Start: 21-01-1197Ocy-patient / Non-visitDO Irving Canela Work Phone: [facility] Group-[facility] Work Phone: Start: 11-22-2023 End: 29-45-9017pcqvgylqfdJB Irving Canela Work Phone: [facility] Work Phone: Start: 11-22-2023 End: 66-78-2219Mxtysuuj ReferredDO Irving Canela Work Phone: [facility]-LAB Path Spec Gian HospStart: 11-15-2023 End: 43-76-4671ebsrmduomkNJ Irving Canela Work Phone: [facility] Work Phone: Start: 11-15-2023 End: 10-53-3855Zxqnemt encounter procedureDO Irving Canela Work Phone: [facility] Work Phone: Start: 84-64-3216Glz-patient / Non-visitDO Irving Canela Work Phone: [facility] Group-[facility] Work Phone: Start: 83-13-6331Mnx-patient / Non-visitDO Irving Canela Work Phone: [facility] Work Phone: Start: 10-26-2023 End: 08-62-1116Joewbfxxm to same day surgery centerDO Irving Canela Work Phone: [facility]-Digestive Health Work Phone: Start: 10-26-2023 End: 32-82-2195krzxrocuwcDpnxpkos BallFacility:[facility] Start: 12-81-8859Vch-patient / Non-visitDO Irving Canela Work Phone: [facility] Work Phone: Start: 10-17-2023 End: 62-49-4729bwhqecrmakXI Irving Canela Work Phone: [facility] Work Phone: Start: 10-17-2023 End: 98-34-1541Zfithgx encounter procedureDO Irving Canela Work Phone: [facility] Work Phone: Start: 27-03-4318Sjc-patient / Non-visitDO Irving Canela Work Phone: [facility] Work Phone: Start: 09-23-2023 End: 93-44-6167surnczpjqbTT Irving Canela Work Phone: [facility] Work Phone: Start: 09-23-2023 End: 33-82-0148Nljhmtk encounter procedureDO Irving Canela Work Phone: [facility] Work Phone: Start: 09-14-2023 End: 17-28-8461lkrokepekeYY Irving Canela Work Phone: [facility] Work Phone: Start: 09-14-2023 End: 55-08-1835Dcfvdyo encounter procedureDO Irving Canela Work Phone: [facility] Work Phone: Start: 48-07-0205Lqk-patient / Non-visitDO Irving Canela Work Phone: [facility] Work Phone: Start: 08-29-2023 End: 53-16-8699Hsmaljo encounter procedureDO Irving Canela Work Phone: [facility]-Respiratory Therapy Work Phone: Start: 49-78-5916Nhi-patient / Non-visitDO Irving Canela Work Phone: [facility] Physician Group-[facility] Professional [employer] Work Phone: Start: 08-04-2023 End: 28-24-9897tulfqkdpgwQourvrov Ball Other [employer] Other Start: 36-19-4297Lzehdt outpatient visit 25 minutes Irving [facility]ela Medical ClinicStart: 07-25-2023 End: 12-60-9235Uqnsgu outpatient visit 25 minutesThiagodeedee Ferrer Tod DO Work Phone: [facility] HospitalComsturgis hospital on above:Bradycardia; H/O non-ST elevation myocardial infarction (NSTEMI); Paroxysmal atrial fibrillation (CMS/HCC); S/P PTCA (percutaneous transluminal coronary angioplasty)Start: 05-13-2023 End: 15-52-7233hqskhozjqqBteobvuk Ball Other [place] [employer] Other Start: 30-73-6268Keupxy outpatient visit 15 minutes Irving [facility]ela Medical ClinicStart: 05-04-2023 End: 63-11-0991mmtmccxpaoIsmpddbs Ball Other [facility] [employer] Other Start: 92-73-0966Uxbuah outpatient visit 25 minutes Irving [facility]ela Medical ClinicStart: 71-71-8316Dxcgecnqy encounterLawrence VeraDaphne Canela Medical ClinicStart: 04-21-2023 End: 78-54-1228Uhozddlhm to same day surgery centerDO Irving Canela Work Phone: [facility] Work Phone: Start: 04-21-2023 End: 96-83-3165getvptbexqQI Irving Canela Work Phone: [facility] Work Phone: Start: 03-25-2023 End: 58-73-6733zozlmslzdpUyzmjpha Ball Other [facility] [employer] Other Start: 62-11-6886Yqjvxksxm encounterBejarodsandhya CanelaVANDANAChad [facility] Medical ClinicStart: 11-77-6764MYJ, Provider: Florence Norman, Status: Pen, Time: 12:30 PMBenjamin Mariel Ball Work Phone: [phone]-WqaurRedwood Llcusky 250 DO Work Phone: Start: 54-86-6944kunulfecifTa. Florence Aden Facility:[id number]: 01-40-0463Frdaf UpdateBenjamin E Ball Work Phone: [phone]-KcbtsElbow Lake Medical CenterPend [place]re[place] 250 DO Work Phone: Start: 39-24-4483Ypbhg UpdateBenjamin E Ball Work Phone: [phone]-VygizTyler Hospitalusky 250 DO Work Phone: Start: 03-21-2023 End: 07-41-5493yiwgbronkcCF Irving Canela Work Phone: [facility] Work Phone: Start: 03-21-2023 End: 73-99-9154Oubdhdh encounter procedureDO Irving Canela Work Phone: [facility]-Respiratory Therapy Work Phone: Start: 29-85-1782cshvricnxnFy. Florence Aden Facility:[id number]: 03-01-2023 End: 08-23-6394lviasrtqapSdnzizmh McCormack Other [facility] [employer] Other Start: 13-14-3871Xbazkt outpatient new 45 minutes Markell Marquis GastroenterologyStart: 02-01-2023 End: 54-29-0626vnxpssubtoPcaanezx Ball Other [facility] [employer] Other Start: 94-07-3500Nhxtst outpatient visit 25 minutes Irving CanelaVANDANAG [facility] Medical ClinicStart: 60-04-3286Sn RenewalBenjamin E Ball Work Phone: [phone]-Domtb [facility] 250 DO Work Phone: Start: 39-73-5976Pssrmd outpatient visit 15 minutes Irving E Ball Work Phone: [phone]-Jnkkc [facility] [address] DO Work Phone: Start: 36-52-6440Kuosxzu encounter procedureBenjamin E Ball Work Phone: [phone]-Ijwjg [facility] 250 DO Work Phone: Start: 02-11-2332tlqosnnqpaBz. Florence Aden Facility:[id number]: 18-03-2959Bl RenewalBenjamin E Ball Work Phone: [phone]-Txxoc [facility] [address] DO Work Phone: Start: 53-23-4272xhruhehiicUtqgry Ibrahim Facility:[id number]: 35-42-5077Clzjkb outpatient visit 5 minutesBenjamin E Ball Work Phone: [phone]-Gpdki [facility] [address] DO Work Phone: Start: 42-85-5583Inmeybg encounter procedureBenjamin E Ball Work Phone: [phone]-Uhttm [facility] [address] DO Work Phone: Start: 50-38-3229iqglpbrzloYs. Florence Aden Facility:[id number]: 40-07-4880Mptbyo outpatient visit 25 minutesBenjamin E Ball Work Phone: [phone]-Bwjjf [facility] [address] DO Work Phone: Start: 27-68-6860siykyjszewIb. Florence Aden Facility:[id number]: 11-02-2022 End: 20-35-5238gvygzcczroKtncozow Ball Other [employer] Other Start: 25-66-0123Mdyqkjudahtm care manage srvc 14 day dischargeBenjamin BallFPG [facility] ClinicStart: 11-01-2022 End: 85-76-7701cohdchkploJzvitehy Ball Other [employer] Other Start: 04-93-9618Qckelyhzb encounterBenjamin BallFPG [facility] ClinicStart: 10-31-2022 End: 97-54-4559lhmxuzahgvKqacfwvw Ball Other [employer] Other Start: 37-54-5122Tjfqwpshe encounterBenjamin BallFPG [facility] ClinicStart: 10-29-2022 End: 91-11-8664nrqcaccuopZhnfljpp Ball Other [employer] Other Start: 58-14-3951Ofvyaqjof encounterBenjamin BallFPG [facility] ClinicStart: 54-97-5979Ehiusfjceo and management of inpatientDO Irving Canela Work Phone: [facility] Work Phone: Start: 16-36-7978gyejdgdfqls encounterDO Irving Canela Work Phone: [facility] Work Phone: Start: 10-26-2022 End: 01-08-5941xbduncvupmHshrochz Ball Other noInvest[employer] Other Start: 46-71-7477Fpdkilj encounter procedureBenjamin BallFPG [facility] ClinicStart: 10-20-2022 End: 62-76-7780wahrmgygxyOY IRVING BALLFacility:B7Fnmez: 31-12-9740Ce Renewal Irving E Ball Work Phone: [phone]-Iangw [facility] [address] DO Work Phone: Start: 10-15-2022 End: 70-05-4981rvfkxxtkppCP Irving Ball Work Phone: [facility] Work Phone: Start: 10-15-2022 End: 30-77-6147Xjmyezh encounter procedureDO Irving Ball Work Phone: [facility]-Respiratory Therapy Work Phone: Start: 10-01-2022 End: 18-03-5972ajxoobgqoeXwxrnwoi Ball Other [employer] Flare Code Other Start: 13-12-6113Rcyesm outpatient visit 25 minutes Irving BallVANDANAG [facility] ClinicStart: 09-30-2022 End: 22-91-0268dotmisibecWmoarfmg Ball Other U[employer] Other Start: 51-49-0505Iulkbcygq encounterBenjamin BallFPG [facility] ClinicStart: 07-73-8456Ohnqnmb encounter procedureBenjamin E Ball Work Phone: [phone]-Eksad [facility] [address] DO Work Phone: Start: 09-07-2022 End: 90-42-9193idljkyncyfIoasirbv Ball Other U[employer] Other Start: 44-99-5885Xzswnlkkw encounterBenjamin BallFPG [facility] ClinicStart: 09-02-2022 End: 40-50-0392xekaykzmuuQnpfdlnz Ball Other [employer] Other Start: 00-74-7892Ckecht outpatient visit 15 minutes Irving BallFPG [facility] ClinicStart: 55-32-7903Pw RenewalBenjamin E Ball Work Phone: [phone]-Axtbh [facility] [address] DO Work Phone: Start: 08-18-2022 End: 31-05-8292jneeyrzbrrGewwluim Ball Other [facility] [employer] Other Start: 84-55-0546Wcmjds outpatient visit 25 minutes Irving CanelaPB Canela Medical ClinicStart: 99-12-0187Eamuqv outpatient visit 15 minutesBenjamin E Ball Work Phone: [phone]-Ygfiz [facility] [address] DO Work Phone: Start: 76-12-0378rzcatnthieLq. Irving Canela Facility:[id number]: 07-12-2022 End: 88-79-4101rbxjfgzgpeAE Irving Canela Work Phone: [facility] Work Phone: Start: 07-12-2022 End: 23-22-3782Rjteylb encounter procedureDO Irving Canela Work Phone: [facility]-Respiratory Therapy Work Phone: Start: 06-15-2022 End: 97-64-0621jijcraaywvQP IRVING CANELAFacility:V6Iallw: 74-64-2074Joykmfc encounter procedureBenjamin E Ball Work Phone: [phone]-BvffnLifeCare Medical Centerusky 250 DO Work Phone: Start: 98-23-4414pwqrpqpunxCZ IRVING CANELAFacility:H1 Start: 05-13-2022 End: 77-91-0054uecjmnikezNGNF SOLIS .Facility:C8Tpbld: 04-20-2022 End: 11-12-7994zbcbsymwfpBU IRVING CANELAFacility:J5Svemx: 04-13-2022 End: 48-52-0526zfglqjibbbMM BEAU SIM .Facility:P1Yrkbn: 97-86-0017Kbkwuznpm for preprocedural laboratory examinationDR BEAU SIM .[facility] Start: 04-10-2022 End: 58-59-6874gnpgrlboozAZ IRVING BALLFacility:B0Tizti: 04-10-2022 End: 30-80-1236Zzxykjhxg for preprocedural laboratory examinationDR VILLATORO ROLAFacility:F5Lgcgg: 03-25-2022 End: 38-08-8263jebgqriyzdIH BEAU S SIM .Facility:E8[place]uron: 03-24-2022 End: 80-75-9308txniuacxxzJC Irving Ball Work Phone: [facility] Work Phone: Start: 03-24-2022 End: 55-76-4097Haoixhe encounter procedureDO Irving Canela Work Phone: [facility]-Respiratory Therapy Start: 03-09-2022 End: 18-81-3904isdteabbfkYZ BEAU S SIM .Facility:V5Wmqro: 67-42-5079Muwbqdf encounter procedureBenjamin E Ball Work Phone: [phone]-RvhjnMinneapolis VA Health Care SystemPend [place]re[place] 250 DO Work Phone: Start: 02-09-2022 End: 71-98-9626cllgmwkbgzZP BEAU S SIM .Facility:K8Blnbp: 01-26-2022 End: 94-05-5378cdkzgokvujLW BEAU S SIM .Facility:D6Qnomh: 01-19-2022 End: 36-46-1474gdiklvltbjCG PHILL EUBANKSFacility:F8Vrhqr: 83-02-7753Zbidavc encounter procedureBenjamin E Ball Work Phone: [phone]-JbunmTyler Hospitalusky 250 DO Work Phone: Start: 01-07-2022 End: 83-40-0758kkjucjhrinLD MARCIA E BRAUNFacility:I2Qhqxi: 99-18-0465Pnppsh outpatient visit 40 minutesBenjamin E Ball Work Phone: [phone]-Yhryl [facility] [address] DO Work Phone: Start: 12-29-2021 End: 66-93-9776mtlzrzlzrpZZ PHILL Bowerity:B7Swerx: 42-30-4246Msgyxu outpatient visit 25 minutesBenjamin E Ball Work Phone: [phone]-Wbygm [facility] [address] DO Work Phone: Start: 69-73-9749Fubsj health examinationBenjamin Ball Other [place] [employer] Other Start: 55-32-6737Wqhqrbm encounter procedureBenjamin E Ball Work Phone: [phone]-Uqgka [facility] [address] DO Work Phone: Start: 07-10-8441By RenewalBenjamin E Ball Work Phone: [phone]-XbkggJohnson Memorial Hospital [facility]-[place] 600 DO Work Phone: Start: 18-37-9669Hxupipu encounter procedureBenjamin E Ball Work Phone: [phone]-Nvhow [facility] [address] DO Work Phone: Start: 06-20-1489Zfsvkn outpatient visit 25 minutes Irving E Ball Work Phone: [phone]-KdoeqJohnson Memorial Hospital [facility]-[place] 600 DO Work Phone: Start: 34-92-0828Jfdwkhe encounter procedureBenjamin E Ball Work Phone: [phone]-Smppz [facility] [address] DO Work Phone: Start: 60-30-4693IQQEKEqrioqcy E Ball Work Phone: [phone]-Vzcky [facility] [address] DO Work Phone: Start: 65-06-3356Juactsi encounter procedureBenjamin E Ball Work Phone: [phone]-Cjqoj [facility] [address] DO Work Phone: Start: 78-37-3647Jdvhuzpgc encounterBenjamin E Ball Work Phone: [phone]-Nygly [facility] 250 DO Work Phone: Start: 41-78-3541YWVFFFreeuqtp E Ball Work Phone: [phone]-Nrrpv [facility] 250 DO Work Phone: Start: 25-87-0472Ad RenewalBenjamin E Ball Work Phone: [phone]-Soczb [facility] 250 DO Work Phone: Start: 60-24-3059Wrtkaq outpatient visit 25 minutes Irving E Ball Work Phone: [phone]-Utasr [facility] 250 DO Work Phone: Start: 27-83-2011Jwvblpu encounter procedureFlorence Aden DIRECTOR OF SOCIAL SERVICES-CHERRY DIPPER Work Phone: [phone]-Pcwgf [facility] 250 DO Work Phone: Start: 06-15-2018 End: 94-30-7139Hclrqgg encounter procedureDEFAULT PHYSICIANFacility:[facility] MEDICAL CENTERtart: 05-09-2018 End: 12-09-1832Ygytkoy encounter procedureZOHAIB AHMEDFacility:[facility] Procedures DateProcedureProcedure DetailPerforming ClinicianStart: 66-59-7358IIBTDKMAELM SKIN LESIONEmily Chanel Girard MD Work Phone: Start: 92-23-6077OLFF / NAIL BIOPSYEmily Chanel Girard MD Work Phone: Start: 52-36-4147DHCWMUAENGA SKIN LESIONEmroosevelt Girard MD Work Phone: Start: 73-37-2083MMZUCWUXERH SKIN LESIONEmily Chanel Girard MD Work Phone: Start: 00-26-0758Fqe routine ecg w/least 12 lds w/i&r Brendon Baron DO Work Phone: Start: 00-38-0976MGSZ SURGERYPedro Wagner MD Work Phone: Start: 04-52-3006ZZGS / NAIL BIOPSYEmily Chanel Girard MD Work Phone: Start: 90-37-3385HHNFBJLVPRY SKIN LESIONEmily Chanel Girard MD Work Phone: Start: 25-97-3584RKMKVRGLDFZ SKIN LESIONEmily Chanel Girard MD Work Phone: Start: 64-71-8149Zid routine ecg w/least 12 lds w/i&r Brendon Carissa Tod DO Work Phone: Start: 66-65-4210Ceddxfyp fiberoptic sigmoidoscopyDO Irving Canela Work Phone: Start: 10-20-2023E coli Shiga Toxin EIADO Irving Canela Work Phone: Start: 39-01-3341Hjkcqfsweh/Shigella ScreenDO Irving Canela Work Phone: Start: 93-48-3230Ogjfq chest X-rayDO Irving Canela Work Phone: Start: 60-20-9071Drf routine ecg w/least 12 lds w/i&r Brendon Carissa Tod [employer] Work Phone: Start: 98-25-1737YzjuumfascqfutafxuuxyfyjtpIE Irving Canela Work Phone: Start: 34-35-3858Pezkk chest X-rayDO Irving Canela Work Phone: Start: 71-66-9623Figgm chest X-rayDO Irving Canela Work Phone: Start: 26-37-0220Ofggl chest X-rayDO Irving Canela Work Phone: Start: 70-73-1286Bvtse chest X-rayDO Irving Canela Work Phone: Start: 12-50-8782Kfwpd colonoscopyBenjamin Mariel Canela Work Phone: Start: 15-32-3346Azxbjjvav for malignant neoplasm of colonBentania Canela Other Start: 99-74-7066Zqqcftr of external beam radiation therapyPatric CHAIREZ Start: 19-96-0002NdppzmndxpAttvbuv WATERS Start: 82-92-4719Qgbdvix prostatectomy99tests Start: 49-28-9200Gocfsbuhstp biopsy of prostate using ultrasound guidanceLynxFit for Google Glass back surgeryPaZebit ColonoscopyLynxFit for Google Glass Depression screeningBenjamin Rola Other Destructive procedureBenjamin E Rola Work Phone: History of placement of stent for coronary artery diseaseHistory of heart artery stentDO Irving Onfido Work Phone: Percutaneous transluminal coronary angioplastyBenjamin E Onfido Work Phone: Placement of stentLynxFit for Google Glass Procedure on backBenjamin E Ball Work Phone: Procedure on prostateBenjamin E Onfido Work Phone: TonsillectomyBenZebit Plan of Treatment DateCare ActivityDetailAuthorStart: 37-92-9334VHeT/Tdap/Td Vaccines (2 - Td or Tdap)DTaP/Tdap/Td Vaccines (2 - Td or Tdap)[facility] Start: 99-79-7968Iuhxg microalbumin profileDTaP,Tdap,Td Vaccine (2 - Td or Tdap) [facility]: 77-88-5248Srsycgtv ScreeningDiabetes ScreeningOhioHealth Berger Hospitaltart: 06-04-2025 End: 55-46-8273Yfnupzl encounter /09/2025 2:20 PM EST Office Visit [facility] [address] [place] [phone] Bashir Girard MD [address] [place] [address] NOMCarissa Pierce DermatologyStart: 03-05-2025 End: 90-18-3028Aoxdxmz encounter procedureNOMS SWS DERMComment on above:Arrived Start: 33-88-0043Ukssryszt vaccinationInfluenza Vaccine (#1)[facility] Start: 11-29-2024 End: 21-48-8452Rhahsdz encounter procedureNOMS SWS DERMComment on above:Arrived Start: 05-22-2025Medicare Annual Wellness VisitMedicare Annual Wellness Visit (AWV)[facility]: 08-[facility]2024 End: 80-09-9343Rgvklqs encounter procedureNOMS ENT SANDUSKYComment on above: ArrivedStart: 08-27-2024 End: 31-75-2270Jmwlxqv encounter procedureNOMS SWS DERMComment on above:Arrived Start: 08-01-2024 End: 85-28-1428Cfqgihl encounter kdtcwnoem00/05/2025 2:15 PM EST Office Visit [facility] [address] [place] [phone] Irving Fonseca, [address] [facility] [place] [address] ArrivedNO ENT JERRICAUSKYComment on above:ArrivedStart: 07-24-2024 End: 22-99-8324Hcabkhjjt aminotransferase [Enzymatic activity/volume] in Serum or Plasma by With P-5'-PAspartate Aminotransferase Lab Routine High risk medication use Paroxysmal atrial fibrillation (Multi) Expected: 07/24/2024 (Approximate), Expires: 07/24/2025[facility] Service Area Work Phone: Comment on above:Expected: 07/24/2024 (Approximate), Expires: 07/24/2025Start: 07-24-2024 End: 02-29-3064Dyirs metabolic 2000 panel - Serum or PlasmaBasic Metabolic Panel Lab Routine High risk medication use Paroxysmal atrial fibrillation (Multi) Ex pected: 07/24/2024 (Approximate), Expires: 07/24/2025[facility] Work Phone: Comment on above:Expected: 07/24/2024 (Approximate), Expires: 07/24/2025Start: 07-24-2024 End: 10-90-3083Ksjuqgoi Pulmonary Function Test (Spirometry/DLCO/Lung Volumes) Complete Pulmonary Function Test (Spirometry/DLCO/Lung Volumes) PFT Routine High risk medication use Paroxysmal atrial fibrillation (Multi) Expected: 07/24/2024 (Approximate), Expires: 07/24/2025Un[facility] Work Phone: Comment on above:Expected: 07/24/2024 (Approximate), Expires: 07/24/2025Start: 07-24-2024 End: 77-00-3663Nhcmgbk encounter eyuiedrxa64/28/2025 2:00 PM EST Office Visit [facility] [address] [place] [address] Brendon Baron DO [address] [facility] [address] [place] [address] [facility]: 07-24[facility]2024 End: 97-11-1004Bgrmhpavwfh [Units/volume] in Serum or PlasmaThyroid Stimulating Hormone Lab Routine High risk medication use Paroxysmal atrial fibrillation (Mul ti) Expected: 07/24/2024 (Approximate), Expires: 07/24/2025[facility] Work Phone: Comment on above:Expected: 07/24/2024 (Approximate), Expires: 07/24/2025Start: 07-24-2024 End: 17-20-3560PK Chest 2 ViewsXR chest 2 views Imaging Routine High risk medication use Paroxysmal atrial fibrillation (Multi) Expected: 07/24/2024 (Approximate), Expires: 07/24/2025[facility] Work Phone: Comment on above:Expected: 07/24/2024 (Approximate), Expires: 07/24/2025Start: 07-23-2024 End: 36-53-7390Cfxoxsa encounter bjuylgrzt16/27/2025 12:45 PM EST Office Visit [facility] [place] [address] [place] [phone] Irving Fonseca, DO [address] [place] [address] Basal cell carcinoma of skin of scalp and neckNOMS ENT SANDUSKYComment on above:Basal cell carcinoma of skin of scalp and neckStart: 05-21-2024 End: 78-40-7548Ietfxqo encounter procedureNOMS SWS DERMComment on above:Arrived Start: 03-29-2024 End: 98-33-8205Satwrainf aminotransferase [Enzymatic activity/volume] in Serum or Plasma by With P-5'-PAspartate Aminotransferase Lab Routine Paroxysmal atrial fibrillation (Multi) High risk medication use Expected: 03/29/2024 (Approximate), Expires: 12/27/2024[facility] Service Area Work Phone: Comment on above:Expected: 03/29/2024 (Approximate), Expires: 12/27/2024Start: 03-29-2024 End: 79-29-0802Tkuxo metabolic 2000 panel - Serum or PlasmaBasic Metabolic Panel Lab Routine Paroxysmal atrial fibrillation (Multi) High risk medication use Ex pected: 03/29/2024 (Approximate), Expires: 12/27/2024[facility] Work Phone: Comment on above:Expected: 03/29/2024 (Approximate), Expires: 12/27/2024Start: 03-29-2024 End: 58-14-3395Uvopb 1996 panel - Serum or PlasmaLipid Panel Lab Routine Mixed hyperlipidemia Expected: 03/29/2024 (Approximate), Expires: 12/27/2024[facility] Work Phone: Comment on above:Expected: 03/29/2024 (Approximate), Expires: 12/27/2024Start: 03-29-2024 End: 02-69-5659Kcytqniakds [Units/volume] in Serum or PlasmaThyroid Stimulating Hormone Lab Routine Paroxysmal atrial fibrillation (Multi) High risk medication use Expected: 03/29/2024 (Approximate), Expires: 12/27/2024Un[facility] Work Phone: Comment on above:Expected: 03/29/2024 (Approximate), Expires: 12/27/2024Start: 16-95-4056EJBDL-19 Vaccine ()COVID- 19 Vaccine ()[facility]Start: 19-71-0051Dbzon-19 Vaccine ()Covid-19 Vaccine ()[facility]: 65-66-8678Domkoitqg vaccinationInfluenza Vaccine (#1)[facility]: 02-14-2024 End: 12-72-4730Wjsgtbg encounter uvldpgpfx48/20/2024 1:15 PM EDT Office Visit [facility] [address] [place] [phone] Bashir Girard MD [address] [place] [address] ArrivedNOMS SWS DERMComment on above:ArrivedStart: 93-23-2472Qvsyujq [facility] Work Phone: Start: 12-28-2023 End: 10-18-1493LC Heart Perfusion W stress and W radionuclide IVNuclear Stress Test Cardiac Nuclear Medicine Routine Chest pain, unspecified type Expected: 12/28/2023 (Approximate), Expires: 12/27/2025[facility] Work Phone: Comment on above:Expected: 12/28/2023 (Approximate), Expires: 12/27/2025Start: 15-86-1293YuunjptsoMercy Health West Hospitaltart: 38-57-5432Xxonpgp [facility] Work Phone: Start: 73-53-1686FQKHR-19 Vaccine ( season) COVID-19 Vaccine ()[facility]Start: 87-20-6876UYL, Provider: Brendon Baron, Status: Pen, Time: 10:00 AMFUV, Provider: Brendon Baron, Status: Pen, Time: 10:00 [facility] [place] [address] DO Work Phone: Start: 74-93-5190Vqosbir Directive DiscussionAdvance Directive DiscussionOhioHealth Berger Hospitaltart: 21-84-6299YhpattausMercy Health West Hospitaltart: 72-64-5776JLW, Provider: Florence Norman, Status: Pen, Time: 9:00 AMFUV, Provider: Florence Norman, Status: Pen, Time: 9:00 [facility] [address] DO Work Phone: Start: 81-20-0622AZI, Provider: Florence Norman, Status: Pen, Time: 11:00 AMFUV, Provider: Florence Norman, Status: Pen, Time: 11:00 AM[facility] [address] DO Work Phone: Start: 18-36-0135MARWGNA, Provider: LILLIANA MORALEZ [employer]LECT[employer] SIGN WIRER 1,[id number], Status: Pen, Time: 11:15 AMBPCHECK, Provider: LILLIANA MORALEZ [employer]LECTR[employer] SIGN WIRER 1,[id number], Status: Pen, Time: 11:15 AMW[facility] [address] DO Work Phone: Start: 71-52-3669HATUO BEBE, Provider: LILLIANA MORALEZ [employer] SIGN WIRER 1,[id number], Status: Pen, Time: 11:00 AMEVENT BEBE, Provider: LILLIANA MORALEZ [employer]LECTR[employer] SIGN WIRER 1,[id number], Status: Pen, Time: 11:00 AMW[facility] [address] DO Work Phone: Start: 30-94-1194MhqjzwiwfKettering Health [facility]burg Start: 07-17-2364Oppkagxz admissionMercy Health West Hospitaltart: 99-55-6610Onooxwye to cardiologistMercy Health West Hospitaltart: 29-95-7767ZzxrysrgqMercy Health West Hospitaltart: 13-21-5543Ystrr chest X-rayXR chest 2V*[facility] Hospitaltart: 97-76-1059ZA Chest 2 Views [facility] Hospitaltart: 56-36-6654SUO, Provider: Brendon Baron, Status: Pen, Time: 10:20 AMFUV, Provider: Brendon Baron, Status: Pen, Time: 10:20 [facility]MPM[facility]-[place] [address] DO Work Phone: Start: 21-37-6842ANN, Provider: Brendon Baron, Status: Pen, Time: 1:30 PMFUV, Provider: Brendon Baron, Status: Pen, Time: 1:30 PMMP-[facility]-[place] [address] DO Work Phone: Start: 13-43-4201FDY, Provider: Brendon Ceja, Status: Pen, Time: 8:30 AMFUV, Provider: Brendon [place]ja, Status: Pen, Time: 8:30 AMMPMason [facility] Hospital [facility]-[place] [address] DO Work Phone: Start: 34-90-2259QHB, Provider: Brendon [place]ja, Status: Pen, Time: 3:30 PMFUV, Provider: Brendon [place]ja, Status: Pen, Time: 3:30 PMW[facility] [address] DO Work Phone: Start: 60-02-0409OHG, Provider: LILLIANA MORALEZ [employer]LECTR[employer] S[employer] WIRER 1,[id number], Status: Pen, Time: 1:00 PMEKG, Provider: LILLIANA MORALEZ [employer]LECT[employer] S[employer] WIRER 1,[id number], Status: Pen, Time: 1:00 PMMPMason General Hospital [facility]-[place] [address] DO Work Phone: Start: 07-93-7962XWL, Provider: Florence Norman, Status: Pen, Time: 9:30 AMFUV, Provider: Florence Norman, Status: Pen, Time: 9:30 AM-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-[place] [address] DO Work Phone: Start: 19-99-3720XER, Provider: Florence Norman, Status: Pen, Time: 9:00 AMFUV, Provider: Florence Norman, Status: Pen, Time: 9:00 AMMP-[facility] [address] DO Work Phone: Start: 61-65-9319VRV, Provider: Brendon Baron, Status: Pen, Time: 11:20 AMFUV, Provider: Brendon Baron, Status: Pen, Time: 11:20 AMMP-[facility]-[place] [address] DO Work Phone: Start: 62-71-6366Wflgrxovgrwx vaccinationPneumococcal Vaccine (2 of 2 - PCV)[facility]: 03-14-2018 Pneumococcal Vaccine: 65+ Years (2 - PCV)Pneumococcal Vaccine: 65+ Years (2 - PCV)[facility]: 97-44-2548Akascyoakypb Vaccine: 65+ Years (2 of 2 - PCV)Pneumococcal Vaccine: 65+ Years (2 of 2 - PCV)[facility]Start: 85-32-1823LOH High Risk: (Elderly (60+) or Population) (1 - 1-dose 75+ series)RSV High Risk: (Elderly (60+) or Population) (1 - 1-dose 75+ series)[facility]: 33-59-9927BNJ Vaccine (1 - 1-dose 75+ series)RSV Vaccine (1 - 1-dose 75+ series)[facility]: 84-50-8245Sqsatc Vaccines (2 of 3)Zoster Vaccines (2 of 3) [facility]: 44-89-4931XEI patients and/or patients aged 60+ years (1 - 1-dose 60+ series)RSV patients and/or patients aged 60+ years (1 - 1-dose 60+ series)[facility] Start: 28-27-2549TPbY/Tdap/Td Vaccines (1 - Tdap)DTaP/Tdap/Td Vaccines (1 - Tdap)[facility]: 65-01-6885Mkbpckg ScreeningAnxiety ScreeningOhioHealth [facility] Hospitaltart: 78-80-7868Lxfoyajbia ScreeningDepression ScreeningOhioHealth [facility] Hospitaltart: 23-25-0355Updxmrgm mellitus screeningDiabetes Screening[facility]: 38-70-1995Pgdyk panelLipid PanelUK [facility]: 04-19-1942Medicare Annual Wellness VisitMedicare Annual Wellness Visit (AWV)[facility]: 48-22-0440Nrrqbsl stimulating hormone measurementTSHillcrest Hospital Cushing – CushingBacteria identified in Stool by CultureKettering Health MiamisburgCalculated LDL cholesterol levelKettering Health [facility]amisburg Cholesterol.total/Cholesterol in HDL [Mass Ratio] in Serum or PlasmaKettering Health MiamisburgDermatopathology examDermatopathology exam Pathology and Cytology Timed Neoplasm of unspecified behavior of bone, soft tissue, and skin Release Upon Ordering for 1 Occurrences starting 05/21/2024[facility] Work Phone: comment on above:Release Upon Ordering for 1 Occurrences starting 05/21/2024ermatopathology examDermatopathology exam Pathology and Cytology Timed Neoplasm of unspecified behavior of bone, soft ti ssue, and skin Release Upon Ordering for 1 Occurrences starting 03/05/2025[facility] Work Phone: comment on above:Release Upon Ordering for 1 Occurrences starting 03/05/2025Elastase.pancreatic [Mass/mass] in StoolKettering Health MiamisburgGlucose measurement estimated from glycated hemoglobin [facility] MiamisburgHemoglobin A1c/Hemoglobin.total in Blood [facility] End: 93-62-3216MQ Heart Perfusion W stress and W radionuclide [facility] Service Area Work Phone: Comment on above:Once for 1 Occurrences starting 01/02/2024 until 4Patient EducationLicking Memorial Hospital Work Phone: [facility]Kn[facility] Work Phone: VLDL cholesterol measurementKettering Health MiamisburgXR Abdomen Single viewKettering Health MiamisburgXR Hip - right 2 [facility] Immunizations Immunization DateImmunizationNotesCare UppgrmykTwxnxfrj05-27-8192OQM, preF3, adj, pfBenjamin Ball DO Work Phone: [facility]10-31-2024Seasonal trivalent influenza vaccine, adjuvanted, preservative freeBenjamin Murcek DO Work Phone: [facility] CenterXehjsulisk38-42-7235hysvtddnk virus vaccine, unspecified formulationBashir Girard MD Work Phone: [facility] CenterVqqnptxcnl21-99-8851Yivazgwcl, Seasonal, Quadrivalent, AdjuvantedBenjamin Murcek DO Work Phone: [facility] CenterCkggruajpx76-29-3693NMWF-KHU-9 (COVID-19) vaccine, mRNA, spike protein, LNP, PF, 50 mcg/0.5 mLBenjamin Murcek DO Work Phone: [facility] CenterIngutaowhm83-69-0725dxcepebpb virus vaccine, unspecified formulationBrendon Baron DO Work Phone: [facility] Work Phone: [phone]aqlglv virus vaccine, unspecified formulationDO Irving Canela Work Phone: [facility]11-08-2023influenza, high dose seasonal, preservative-freeBenjamin Ball Other [place] [employer] Other [id number]-26 Moderna (BIvalent)Irving Canela Other [facility]11-03-2022Moderna SARS-CoV-2 VaccinationWilliadeedee Baron DO Work Phone: [facility] Work Phone: [phone] Quadrivalent 0.5 ML Intramuscular Prefilled SyringeBenjamin Mariel Canela Work Phone: [phone]-RduowCook [facility] 7[facility] DO Work Phone: [phone]qydzsi virus vaccine, split virus (incl. purified surface antigen)Irving Canela Other [facility] [employer] Other [id number] virus vaccine, unspecified formulationDO Irving Canela Work Phone: [facility]10-20-2022influenza, injectable, quadrivalent, preservative freeBrendon Baron DO Work Phone: [facility] Work Phone: [phone]myceq virus vaccine, unspecified formulationDO Irving Canela Work Phone: [facility]10-01-2022influenza, high dose seasonal, preservative-freeBenjamin Mariel Canela Work Phone: [phone]-XuyujCook Hospital 250 DO Work Phone: Comment on above:Series:01-74-0624Aaafozd SARS-CoV-2 VaccinationBenjamin Murcek DO Work Phone: [facility] CenterZerekphkjn54-28-5474Hgvkope SARS-CoV-2 VaccinationBenjamin Murcek DO Work Phone: [facility] CenterVukzysjxhc03-93-0891Zzturef COVID-19 Vaccine 100 MCG/0.5ML Intramuscular SuspensionBenjamin Mariel Canela Work Phone: [facility]10-04-2021influenza virus vaccine, split virus (incl. purified surface antigen)Irving Canela Other [facility] [employer] Other [id number] virus vaccine, unspecified formulationDO Irving Canela Work Phone: [facility]10-01-2021influenza virus vaccine, unspecified formulationBenjamin Murcek DO Work Phone: [facility] CenterGihevshdkj03-64-7859Tvsppzu COVID-19 Vaccine 100 MCG/0.5ML Intramuscular SuspensionBenjamin E Ball Work Phone: [facility]01-18-2021Moderna COVID-19 Vaccine 100 MCG/0.5ML Intramuscular SuspensionBenjamin E Ball Work Phone: [facility]10-19-2020influenza virus vaccine, split virus (incl. purified surface antigen)Irving Canela Other [place] [employer] Other 10514722-00-6713cdadheycw virus vaccine, unspecified formulationDO Irving Canela Work Phone: [facility]10-01-2020influenza virus vaccine, unspecified formulationBenjamin Murcek DO Work Phone: [facility] CenterBzprambkwp28-20-9244vlamzhb toxoid, reduced diphtheria toxoid, and acellular pertussis vaccine, adsorbedBenjamin Murcek DO Work Phone: [facility] CenterEthtulzbqk98-64-2857yovmprwio, high dose seasonal, preservative-freeWilliam Tod DO Work Phone: [facility] Work Phone: [phone] 630-769509957153-33-1826Dggntvsv trivalent influenza vaccine, adjuvanted, preservative freeBenjamin E Ball Work Phone: [phone]-XfpfsChildren's [place] 250 DO Work Phone: [phone] 538-119909026268-67-0843rxwdyayyv virus vaccine, unspecified formulationBenjamin Murcek DO Work Phone: [facility] CenterUcrszewlpp95-74-2543spnfnc vaccine recombinant Irving Murwojciech DO Work Phone: [facility] CenterAdqtajbncj17-34-5974dfjybd vaccine recombinant Irving Canela Work Phone: [phone]-BmgvwHeather Ville [address] DO Work Phone: [phone]nwaz vaccine recombinantBenjasandhya Muradrianak DO Work Phone: [facility] CenterMkmqaqyrta94-29-1326lqygzhbyr, injectable, quadrivalent, preservative freeBenjamin E Ball Work Phone: [phone]-MrmrzHeather Ville [address] DO Work Phone: [phone] 978-16841409294-66-2433swkntbnmh virus vaccine, unspecified formulationBentania Fonseca DO Work Phone: [facility] CenterFlsxafbxju81-24-6776utcxedrpx virus vaccine, split virus (incl. purified surface antigen)Irving Canela Other [facility] [employer] Other [id number] virus vaccine, unspecified formulationDO Irving Canela Work Phone: [facility]11-01-2017influenza virus vaccine, unspecified formulationBentania Fonseca DO Work Phone: [facility] CenterPuniietsnr20-67-7636pgsskchiq virus vaccine, split virus (incl. purified surface antigen)Irving Canela Other [facility] [employer] Other [id number] virus vaccine, unspecified formulationDO Irving Canela Work Phone: [facility]09-18-2017influenza, high dose seasonal, preservative-freeBenjamin E Ball Work Phone: [phone]-EsdrxHeather Ville [address] DO Work Phone: [phone]ssyksfrjw polysaccharide vaccine, 23 valentBenjamin E Rola Work Phone: [facility]10-01-2016influenza virus vaccine, unspecified formulationBenjamin Murcek DO Work Phone: [facility] CenterVhzskpuxew68-70-5102onyiosxlq virus vaccine, split virus (incl. purified surface antigen)Irving Canela Other [place] [employer] Other [id number] virus vaccine, unspecified formulationDO Irving Canela Work Phone: [facility]09-16-2016 pneumococcal conjugate vaccine, 13 valentBentania Ball Other [facility]09-30-2015influenza virus vaccine, split virus (incl. purified surface antigen)Irving Canela Other [place] [employer] Other [id number] virus vaccine, unspecified formulationDO Irving Canela Work Phone: [facility]05-19-2015zoster vaccine, liveBenjamin Mariel Canela Work Phone: [facility]10-08-2014tetanus and diphtheria toxoids, adsorbed, preservative free, for adult use (5 Lf of tetanus toxoid and 2 Lf of diphtheria toxoid)Irving Canela Other [facility]10-08-2009influenza virus vaccine, unspecified formulationBenjamin Murcek DO Work Phone: [facility] CenterNofegkvwgt30-13-1712ksjzefxup virus vaccine, unspecified formulationBenjamin Murcek DO Work Phone: [facility] CenterDxlxrvjorr32-45-4529pmkuawyjwpvm vaccine, unspecified formulationBenjamin Murcek DO Work Phone: [facility] Healthcare Payers DatePayer CategoryPayerPolicy [id number] supplemental policy (as second payer)[employer] MED[employer] SUPPLEMENT [id number] [facility] [id number] [id number] 2016Private Health [id number] 2007Medicare [id number] [id number] Health [id number] 70-74-2645Xpba-[id number] 2..1.912796.3.57[id number] 2..1.702004.3.57[id number] 2..1.192639.3.57[id number] 2.0.1.958237.3.57[id number] 2.0.1.690558.3.57[id number] 2.16.840.1.481558.3.57[id number] 2.16.840.1.537362.3.57[id number] 2.16840.1.519333.3.57[id number] 2.16.840.1.070737.3.57[id number] 2.16840.1.524925.3.57[id number] 2.840.1.913484.3.57[id number] 2.840.1.475647.3.57[id number] 2.16.840.1.539329.3.57[id number] 2.840.1.501560.3.57[id number] 2.840.1.234889.3.57[id number] 2.16840.1.386743.3.57[id number] 2.16840.1.232794.3.57[id number] 2.16840.1.450719.3.57[id number] 2.16840.1.060837.3.57[id number] 2.16.840.1.328620.3.57[id number] 2.16.840.1.920396.3.579.[id number] 2.16.840.1.873560.3.579.[id number] 2.16840.1.178186.3.57[id number] 2.16840.1.157714.3.57[id number] 2.16840.1.240525.3.57[id number] 2.840.1.558515.3.57[id number] 2.840.1.960442.3.57[id number] 2.16840.1.721393.3.57[id number] 2.840.1.245069.3.57[id number] 2.16840.1.009708.3.57[id number] 2.16840.1.332871.3.57[id number] 2.16840.1.757128.3.57[id number] 2.16840.1.701255.3.579.2.22[id number] 2.16.840.1.884665.3.579.2.775256-86-7826Igrxabi5616806 2.16.840.1.395839.3.579.[id number] 2.16.840.1.709220.3.57[id number] 2..840.1.356968.3.579.[id number] 2..840.1.919341.3.579.[id number] 2.16.840.1.830[id number] County Joel P[facility] [id number] 87lj395o-351z-[id number]-[id number] 2.16.840.1.70[id number] 2.840.1.229696.3.579.2.531 [id number] 2.840.1.296[id number] 2.0.1.549157.3.579.2.531 Social History DateTypeDetailFacilityStart: 07-25-2023 End: 99-95-3605Cyqutxcn alcohol occasionallyConsumes alcohol occasionally- [facility] [address] DO Work Phone: Comment on above:1-2 cups daily;quit ;Start: 03-10-2022 End: 38-29-7624Qcvodna smoking status NHISNever smoked tobacco (finding) [facility]: 05-57-4070Pxe Assigned At BirthMale [facility]art: 07-25-2023 End: 93-01-7917Iqy Assigned At BirthSycamore Medical Centertart: 04-21-2023 End: 06-80-3010Rrsqfdx smoking status NHISEx-smoker (finding)[facility]burgHistory of tobacco useCurrent smokerUnPremier Health Upper Valley Medical Center Work Phone: History of tobacco useCigarette SmokerUnPremier Health Upper Valley Medical Center Work Phone: Start: 07-25-2023 End: 56-76-7184Ibzplli intakeCurrent drinker of alcohol (finding)[facility] Work Phone: Start: 29-27-3417Indmnfw CommentoccasionalUniversBloomington Meadows Hospital Work Phone: Start: 90-95-0141Crx Assigned At BirthNot on file [facility] Work Phone: Start: 07-15-2023 End: 06-29-2943Wtqvhfml to SARS-CoV-2 (event)Not sureUnPremier Health Upper Valley Medical CenterTobast. [facility] NHISTobacco smoking consumption unknownMemorial Health System Selby General HospitalNational Score (1-100), lower number is lower zcip95QakqlmbwpMemorial Health System Selby General Hospital Start: 05-17-2024 End: 87-87-3158EvlWehx (finding)[facility] Hospitaltart: 05-12-2023 End: 11-76-6652Hkahvib use and exposureSmokeless tobacco non-userUnPremier Health [facility] Valley Medical Center Work Phone: NEGATED: Highlighted rowStart: NINFHistory of tobacco usePassive smokerNOMS Healthcare Goals DatePatient GoalDesired Activity/State Clinical Notes 12-30-2021 to 03-05-2025 Note Date & WylySkhmEzsvsxml41-11-7184 History of Present illness Narrative* Bashir Girard MD - 03/05/2025 1:30 PM EDT Images from the original note [...] medical history, medications, and allergies were reviewed. Patient denies fatigue, shortness of breath, enlarged lymph nodes, unintentional weight loss, or abdominal pain today. General Exam: alert, oriented to person, place, and time, normal affect, well appearing Unaccompanied Scalp, Examined Right leg Examined Head, Face Examined Left leg Examined Neck Examined Right foot Examined Chest Examined Left foot Examined Back Examined Buttocks Examined Patient kept underwear on Abdomen Examined Digits,nails: Examined Right arm Examined Left arm Examined Lymphatics: Examined Hands Examined no supraclavicular lymphadenopathy, no axillary lymphadenopathy Skin Exam 1. NEOPLASM OF UNSPECIFIED BEHAVIOR OF BONE, SOFT TISSUE, AND SKIN Mid Parietal Scalp Hyperkeratotic papule Lesion biopsy Type of biopsy: tangential [...] Dressing type: bandage Additional details: Photo taken yes Amount of lidocaine used: 0.5 cc Specimen A - Dermatopathology exam Differential Diagnosis: AK vs SCC Check Margins: No Size of lesion: 1.3 x 1.2 cm 2. ACTINIC KERATOSIS (12) Left Forearm - Posterior (4), Left Hand - Posterior (2), Mid Parietal Scalp, Right Elbow - Posterior, Right Forearm - Posterior (3), Right Hand - Posterior Erythematous scaly papules Patient was counseled regarding these sun-induced growths that can develop into squamous cell carcinoma if left untreated. Discussed treatment options, including cryotherapy and topical preparations.It was emphasized that any treated lesions that fail to resolve should be re-evaluated. Patient elected for treatment with Efudex as this has become a chronic issue. Educated on Efudex treatment. Apply to Scalp twice a day for two weeks. Discussed that treated areas will become red, crusty, and inflamed. If areas become too uncomfortable, patient may use OTC hydrocortisone cream to help decrease irritation and can discontinue treatment early. Sun exposure should be avoided during treatment. Patient instructed to contact office for any questions or issues during treatment. Lesions that fail toresolve once treated area is healed should be re- evaluated in the office. Handout given to patient Cryotherapy performed today; see procedure note Diagnosis: Actinic keratosis Indication: Precancerous Location: see skin exam Consent: Verbal consent was obtained and risks were discussed, including, but not limited to risks of scarring, darker or cognos lead pigmentary changes, recurrence, incomplete removal and infection. Method: Liquid nitrogen was used to treat the lesion(s) with two 5-10 second freeze-thaw cycles. Number of lesions treated: 12 Post-procedure instructions: Instructions were given orally and in writing. The office will be contacted if the lesion fails to resolve despite treatment, or if a side effect develops such as abnormal crusting, scabbing, redness or tenderness Cryotherapy, skin lesion - Left Forearm - Posterior (4), Left Hand - Posterior (2), Mid Parietal Scalp, Right Elbow - Posterior, Right Forearm - Posterior (3), Right Hand - Posterior Related Medications fluorouracil (Efudex) 5 % cream Apply to directed areas on the scalp twice a day x 14 days. Dispense 30 day supply but only use for14 days. 3. SEBORRHEIC KERATOSIS Generalized Stuck on verrucous, escobar-brown papules and plaques. Patient was counseled regarding these benign growths. Removal is normally not necessary, but they may be removed if they are symptomatic or for cosmetic reasons. 4. LENTIGINES Generalized Scattered escobar macules in sun-exposed areas. The patient was informed that lentigines are benign pigmented lesions that occur on sun-exposed andsun-damaged skin. No treatment is necessary. Recommended regular use of broad spectrum sunscreen SPF 30 or higher 5. HISTORY OF MALIGNANT MELANOMA OF SKIN Right [...] Next Visit: 3 months documented in this encounterUniversity Health Lakewood Medical CenterBonxvcalcn16-38-1398 Evaluation note* Diagnosis Onset Date Resolution Status Admit Date ASHD (arteriosclerotic heart disease) acuteSept2024 1:21pmEssential hypertensionacuteSept2024 1:21pmGastroesophageal reflux disease with esophagitis without hemorrhageacute March 01, 2025 1:21pmHip painacuteSept2024 1:21pmIron deficiency anemia due to chronic blood lossacuteMarch 01, 2025 1:21pmLung noduleacute March 01, 2025 1:21pmParoxysmal atrial fibrillationacuteSept2024 1:21pmPrimary insomniaacutept2024 1:21pm [facility] Work Phone: 1(690) 244-745706-05-2025 History of Present illness Narrative* Bashir Girard MD - 11/29/2024 1:35 PM EDT Skin Check Location: Patient requests a full [...] Left Tragus, Right Malar Cheek, Right [place], Right Parotid Area, Right [place], Right Wrist - Posterior Erythematous scaly papules [...] limited to risks of scarring, darker or cognos lead pigmentary changes, recurrence, incomplete removal and infection. [...] Left Tragus, Right Malar Cheek, Right [place], Right Parotid Area, Right [place], Right Wrist - Posterior 7. INFLAMMATORY PAPULE Left Nasal Sidewall [place] papule Favoring benign lesion. Will give lesion 3-4 weeks to resolve. Patient instructed to call in 3-4 weeks if lesion has not resolved for a biopsy. Next Visit: 3 months documented in this [facility]05-05[facility]2025 Evaluation note* Author Colleen Ochoa [facility] MiamisburgAuthoredMay 2024 11:43qw81-rarr-piv man with SIBO came today for follow up Colonoscopy in 03/2023 [...] mg 3 times daily for 14 days. [facility] Work Phone: 1([phone]) 866-557603-05-2025 History of Present illness Narrative* Irving Fonseca, - 08/29/2024 2:45 PM EST HPI Patient [...] see him back asneeded documented in this encounterUniversity Health Lakewood Medical CenterXhjewvkefs57-96-4963 [facility]DAY[facility] Main [place] [address] [place] [address] Pulmonary Function Signed Patient: Valentín Buckner MR#: [id number] : 1940 Date of Service:0 08/28/24 Age/Sex: 83 / M ADM Date: 5 Loc: RT Room: Type: [facility] Attending Dr: Alfred Baron DO Copies [...] Monty Cruz MD 08/28/241927 Signed By: 08/28/241929 [facility]03-03-2025 History of Present illness Narrative * Bashir [...] limited to risks of scarring, darker or cognos lead pigmentary changes, recurrence, incomplete removal and infection. [...] 3 month skin exam documented in this [facility]02-05-2025 History of Present illness Narrative* Irving Fonseca [...] back in a month documented in this [facility]01-28-2025 History of Present illness Narrative* Brendon Baron, DO - 07/24/2024 2:00 PM EST Subjective [...] history of ASHD with three-vessel PCI's in [place], last catheterization performed by myself, from 06/16 [...] Rfl: Assessment/Plan 1. Coronary artery disease involving peoria coronary artery of peoria heart without angina pectoris 2. Bradycardia Follow [...] exam, discussion and plan. documented in this encounterSt[facility] Work Phone: 1(177) 276-577801-28-2025 Instructions* Patient Instructions* Bita Cox RN - [...] Provided instructions on exercise. documented in this encounterSt. [facility] Hospital Work Phone: 1(329) 747-877701-27-2025 History of Present illness Narrative* Irving Fonseca DO - 07/23/2024 12:45 PM EST Allergies [...] has consented to proceed. documented in this encounterUniversity Health Lakewood Medical CenterKmujkmglgm15-14-7335 History of Present illness Narrative* Pedro Wagner [...] meds, nerve injury, and recurrence were addressed.) [place] Protocol: Procedure explained and questions answered to [...] sodium bicarbonate Procedure Details: Biopsy accession number: [id number] Biopsy lab: [facility] Date of biopsy: 05/21/2024 Frozen section biopsy [...] bid, 10 days Ambulatory referral to ENT [facility] Operative Type of repair: Referred for repair to Nohemy Fonseca DO Wound Care: A pressure dressing was placed on the surgical wound. Post-operative instructions were given in writing and were reviewed with the patient. A follow-up appointment was made, and instructions were given to follow-up sooner if necessary. Next visit: 08/27/2024 documented in this encounterUniversity Health Lakewood Medical CenterOeybhbmqzy36-28-9157 Evaluation note* Diagnosis Onset Date Resolution Status Admit Date Essential hypertension acuteJanuary 2024 1:46pmChronic obstructive pulmonary disease with (acute) lower respiratory infectionnoneactiveJanuary 2024 1:46pmAcute exacerbation of chronic obstructive airways diseasenoneactiveJanuary 2024 1:46pmASHD (arteriosclerotic heart disease)acuteJanuary 2024 11:23am Essential hypertensionacuteJanuary 2024 11:23amGastroesophageal reflux disease with esophagitis without hemorrhageacuteJanuary 2024 11:23amIron deficiency anemia due to chronic blood lossacuteJanuary 2024 11:23am Irritable bowel syndrome with diarrheaacuteJanuary 2024 11:23amParoxysmal atrial fibrillationacuteJanuary 2024 11:23amPrimary insomniaacuteJanuary 2024 11:23am [facility] Work Phone: 1(673) 362-406911-25-2024 History of Present illness Narrative* Bashir Girard [...] limited to risks of scarring, darker or cognos lead pigmentary changes, recurrence, incomplete removal and infection. [...] bone, soft tissue, and skin anterior neck [place] pearly papule Lesion biopsy Type of biopsy: [...] 3 month skin exam documented in this encounterUniversity Health Lakewood Medical CenterHofhhvhoua89-52-2446 Evaluation note* Diagnosis Onset Date Resolution Status Admit Date Acute bronchitis due to other specified organisms acuteMay 17, 2024 8:16amInsomniaacuteMay 17, 2024 8:16amSmall intestinal bacterial overgrowth (SIBO)acuteMay 17, 2024 8:16am [facility] Work Phone: 1([phone]) 217-529011-21-2024 Evaluation note* Diagnosis Onset Date Resolution Status Admit Date Acute bronchitis due to other specified organisms acuteMay 17, 2024 8:16amInsomniaacuteNov2023 8:16amSmall intestinal bacterial overgrowth (SIBO)acuteMay 17, 2024 8:16amEssential hypertensionacuteJanuary 2024 1:46pmChronic obstructive pulmonary disease with (acute) lower respiratory infectionnoneactiveJanuary 2024 1:46pmAcute exacerbation of chronic obstructive airways diseasenoneactiveJanuary 2024 1:46pmASHD (arteriosclerotic heart disease)acuteJanuary 2024 11:23am Essential hypertensionacuteJanuary 2024 11:23amGastroesophageal reflux disease with esophagitis without hemorrhageacuteJanuary 2024 11:23amIron deficiency anemia due to chronic blood lossacuteJanuary 2024 11:23am Irritable bowel syndrome with diarrheaacuteJanuary 2024 11:23amParoxysmal atrial fibrillationacuteJanuary 2024 11:23amPrimary insomniaacuteJanuary 2024 11:23am [facility] Work Phone: 1([phone]) 421-978910-03-2024 History of Present illness Narrative* Keiko Naik APRN.CNP - 03/29/2024 2:43 PM EDT Glucose - SIBO CPT 38578 Hydrogen Breath Test Valentín Buckner 1940 March 29, 2024 Referring Physician: Dr. Sung Ochoa Indication: NSG TEST INDICATIONS: Diarrhea R19.7 Weight: 196 lbs Location: [facility] Duration of Test: 2 Hours Hydrogen Methane [...] Signature: Keiko Naik APRN.CNP documented in this encounterMemorial Health System [facility] Hospital09-23-2024 Evaluation note* Diagnosis Onset Date Resolution Status Admit Date ASHD (arteriosclerotic heart disease) acuteMarch 19, 2024 11:25amEssential hypertensionacutept2023 11:25amGastroesophageal reflux disease with esophagitis without hemorrhageacute March 19, 2024 11:25amIron deficiency anemia due to chronic blood loss acuteSept2023 11:25amIrritable bowel syndrome with diarrheaacute March 19, 2024 11:25amParoxysmal atrial fibrillationacuteSept2023 11:25amPrimary insomniaacuteSept2023 11:25am [facility] Work Phone: 1([phone]) 211-380708-20-2024 History of Present illness Narrative* Bashir Girard [...] (6), Left Shoulder - Anterior, Left [place], Left [place], Right Forearm - Posterior (2) Erythematous scaly [...] limited to risks of scarring, darker or cognos lead pigmentary changes, recurrence, incomplete removal and infection. [...] Posterior (6),Left Shoulder - Anterior, Left [place], Left Yarsani, Right Forearm - Posterior (2) Related Medications [...] Next Visit: 3 months documented in this encounterUniversity Health Lakewood Medical CenterNfmqqebbyv57-93-7507 Evaluation note* Author [facility] CenterhotommieCarilion Clinicosvaldo 2023 11:57se92-azqw-hes man referred to the GI clinic for [...] is negative will consider Imodium or Bentyl [facility] Work Phone: 1([phone]) 487-550007-03-2024 History of Present illness Narrative* Brendon Baron, - 12/28/2023 10:30 AM EDT Subjective Valentín Buckner is a 83 y.o. male Chief Complaint Follow-up 83-year-old gentleman here for follow-up and had 1 emergency room visit for jaw/chest discomfort following a 3 mile bike ride. He was seen at [place] [facility], details of the ER note, ECGs and labs are reviewed Since that time, he has had no further events, he is even ridden his bike 3 miles and walked 1 milewithout any events. He has a history of ASHD with three-vessel PCI's in [place], last catheterization performed by myself, from 12/21 is reviewed revealing patent obtuse marginal branch [...] by mouth every Mon, Wed, Fri, Disp: 40 tablet, Rfl: 1 amLODIPine (Norvasc) [...] Rfl: Assessment/Plan 1. Coronary artery disease involving peoria coronary artery of peoria heart without angina pectoris 2. Bradycardia 3. [...] exam, discussion and plan. documented in this [facility] Work Phone: 1(399) 601-383807-03-2024 Instructions* Patient Instructions* Cass Rogers LPN - [...] through Care Everywhere. * Heart Healthy Diet (Panamanian) documented in this encounterSt. [facility] Hospital Work Phone: 1([phone]) 851-255804-22-2024 Hospital Discharge instructions Follow Up Care 10/17/2023 15:55:07 With:MIHAELA MORALES, Bethel Burgess, URL Address: [facility] [address], [place] [address]- [phone] When: Unknown [facility] 04-22-2024 Evaluation note* Author Colleen Ochoa [facility] MiamisburgAuthoredApril 2023 2:72jd54-fkwd-ldx man referred to the GI clinic for [...] colonic biopsies to assess for microscopic colitis [facility] Work Phone: 1([phone]) 172-556102-08-2024 Evaluation note* Encounter Date Diagnosis Assessment Notes Treatment Notes Treatment Clinical Notes Jul, ASHD (arteriosclerotic heart dis ease) (ICD-10 - I25.10) This patient is stable without activity related CP, dyspnea or lightheadedness. They are instructedto continue exercise and AHA diet plan. Continue secondary prevention measures. Jul,aroxysmal atrial fibrillation (ICD-10 - I48.0)This patient is in NSR or rate controlled. This patient is anticoagulated to prevent thromboembolic events. They are maintaining regular scheduled appts with their networks computer consultant.TT Jul,rimary hypertension (ICD-10 - I10)This patient is instructed to consume a healthy, low-fat, low-salt diet. They are also encouraged to continue exercise to achieve/maintain a normal BMI. Patient is instructed on home BP measurements: - rest for 5 minutes w/o talking.- positioned w/ feet on floor and arm supported.- average best 2/3 readings w/ goal < 135/85.- update office w/ homereadings in 2 weeks. Jul,Hyperlipidemia type II (ICD-10 - E78.01)Instructed on diet and exercise with continued statin therapy.Discussed the beneficial effects of lo wering cholesterol in reducing the risk for cerebrovascular and cardiovascular disease. Jul,Irritable bowel syndrome with diarrhea (ICD-10 - K58.0)INstructed on health, high fiber diet. INstructed to continue Metamucil. Avoid juices, milk and alcohol Jul,radycardia (ICD-10 - R00.1)Asymptomatic. Reduced Amiodarone to 100mg M/W/F Denies lightheadedness. No change necessasry Jul,Iron deficiency anemia (ICD-10 - D50.9)Completed GI evaluation and found to have esophagitis and duodenitis. COmpleted 3 mo course of PPI. He denies any further epigastric discomfort Jul,Overweight (ICD-10 - E66.3)This patient has been instructed on a low-fat, high-fiber diet. They are instructed to reduce calories, portion sizes and snacks. It is recommended that they exercise for 30 minutes, 3-5 times weekly. Jul,rimary insomnia (ICD-10 - F51.01)Healthy diet and exercise. COnsistent sleep routine. Avoid phone, TV, exercise and eating prior to HS [facility] Other 01-29-2024 History of Present illness Narrative* Brendon Baron, - 07/25/2023 1:00 PM EST Subjective Valentín [...] name below, I, Janie Prather LPN , [employer] attest that this documentation has been prepared under the direction and in the presence of Cassandra Baron DO. Assessment/Plan 1. Bradycardia 2. H/O non-ST elevation myocardial infarction (NSTEMI) 3. Paroxysmal atrial fibrillation (CMS/HCC) 4. S/P PTCA (percutaneous transluminal coronary angioplasty) documented in this [facility] Work Phone: 1(368) 491-622101-29-2024 Instructions* Patient Instructions* Janie Delgado LPN - [...] up per routine documented in this encounterSt. 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 Tylenol as needed Apr,Strain of right rotator cuff capsule, initial encounter (ICD-10 - S46.011A)Ice, heat and ROM exercises. Tylenol, Lidocaine and Voltaren Gel. Call if pain increases. [facility] Other 11-08-2023 Evaluation note* Encounter Date Diagnosis Assessment Notes Treatment Notes Treatment Clinical Notes Apr, ASHD (arteriosclerotic heart dis ease) (ICD-10 - I25.10) This patient is stable without activity related CP, dyspnea or lightheadedness. They are instructedto continue exercise and AHA diet plan. Continue secondary prevention measures. Apr,aroxysmal atrial fibrillation (ICD-10 - I48.0)This patient is in NSR or rate controlled. This patient is anticoagulated to prevent thromboembolic events. They are maintaining regular scheduled appts with their networks computer consultant. Apr,rimary hypertension (ICD-10 - I10)This patient is instructed to consume a healthy, low-fat, low-salt diet. They are also encouraged to continue exercise to achieve/maintain a normal BMI. Apr,Hyperlipidemia type II (ICD-10 - E78.01)Instructed on diet and exercise with continued statin therapy.Discussed the beneficial effects of lo wering cholesterol in reducing the risk for cerebrovascular and cardiovascular disease. Apr,Irritable bowel syndrome with diarrhea (ICD-10 - K58.0)Diet instructions and exercise. Reassured that all is normal s/p colonoscopy Apr,radycardia (ICD-10 - R00.1)Asymptomatic w/o CP, dyspnea or lightheadedness Cardiology decreased AMiodarone to 100mg M/W/F Apr,Iron deficiency anemia (ICD-10 - D50.9)Due to donating blood and esophagitis. Much improved, no longer taking Fe supplements. Continue PPI for now Apr,Overweight (ICD-10 - E66.3)This patient has been instructed on a low-fat, high-fiber diet. They are instructed to reduce calories, portion sizes and snacks. It is recommended that they exercise for 30 minutes, 3-5 times weekly. Apr,OtherNormal [facility] Other 10-26-2023 Procedure noteFirOhioHealth Nelsonville Health Center10-01-2023 Evaluation note* Author [facility] CampusAuthoredAugust 2023 11:96px31-wphd-qmf man referred to the GI clinic for [...] colonic biopsies to assess for microscopic colitis [facility] Work Phone: 1([phone]) 706-427310-01-2023 Evaluation note* Author [facility] CampusAuthoredMay 2024 11:64zi60-gpap-fmw man with SIBO came today for follow up Colonoscopy in 03/2023 [...] mg 3 times daily for 14 days. [facility] Work Phone: 1([phone]) 514-228709-29-2023 Evaluation note* Encounter Date Diagnosis Assessment Notes Treatment Notes Treatment Clinical Notes Feb, Primary hypertension (ICD-10 - I 10) [facility] Other 09-05-2023 Evaluation note* Encounter Date Diagnosis Assessment Notes Treatment Notes Treatment Clinical Notes Feb, Iron deficiency anemia (ICD-10 - D50.9) Feb,ERD (gastroesophageal reflux disease) (ICD-10 - K21.9)Patient reports nocturnal GERD and is not currently taking any medication to relieve this Paitent is to have EGD scheduled and prep instructions given today Risks and benefits of procedure explained to patient; patient verbalizes understanding. Feb,Frequent bowel movements (ICD-10 - R19.4)Patient reports multiple bowel movements daily that are very soft Patient reports that he never can completely evacuate his bowels Patient is to have colonosocopy scheduled today and prep instructions given today Risks and benefits of procedure explained to patient; patient verbalizes understanding. [facility]shi Other 08-08-2023 Evaluation note* Encounter Date Diagnosis Assessment Notes Treatment Notes Treatment Clinical Notes Jan, ASHD (arteriosclerotic heart dis ease) (ICD-10 - I25.10) This patient is stable without activity related CP, dyspnea or lightheadedness. They are instructedto continue exercise and AHA diet plan. Jan,aroxysmal atrial fibrillation (ICD-10 - I48.0)This patient is in NSR. This patient is anticoagulated to prevent thromboembolic events. They are maintaining regular scheduled appts with their networks computer consultant. No obvious bleeding complications Jan,rimary hypertension (ICD-10 - I10)This patient is instructed to consume a healthy, low-fat, low-salt diet. They are also encouraged to continue exercise to achieve/maintain a normal BMI. Jan,Hyperlipidemia type II (ICD-10 - E78.01)Instructed on diet and exercise with continued statin therapy.Discussed the beneficial effects of lo wering cholesterol in reducing the risk for cerebrovascular and cardiovascular disease. Jan,Irritable bowel syndrome with diarrhea (ICD-10 - K58.0)Healthy, high fiber diet. Stopped PPI and Fe Continue Metamucil f/u GI Jan,radycardia (ICD-10 - R00.1)Adjusted Amiodarone to 100mg qod HR remains in 50s but no adverse effects on endurance or ADL Jan,nemia, unspecified type (ICD-10 - D64.9)Fe deficiency - donates blood - AC - no obvious GI source of bleeding - recheck labs - GI referral later this month [facility] Other 05-09-2023 Evaluation note* Encounter Date Diagnosis Assessment Notes Treatment Notes Treatment Clinical Notes October, ASHD (arteriosclerotic heart dis ease) (ICD-10 - I25.10) This patient is stable without activity related CP, dyspnea or lightheadedness. They are instructedto continue exercise and AHA diet plan. October,aroxysmal atrial fibrillation (ICD-10 - I48.0)This patient is in NSR or rate controlled. This patient is anticoagulated to prevent thromboembolic events. They are maintaining regular scheduled appts with their networks computer consultant. October,rimary hypertension (ICD-10 - I10)This patient is instructed to consume a healthy, low-fat, low-salt diet. They are also encouraged to continue exercise to achieve/maintain a normal BMI. Patient is instructed on home BP measurements: - rest for 5 minutes w/o talking- positioned w/ feeton floor and arm supported- average best 2/3 readings w/ goal < 135-85 October,Hyperlipidemia type II (ICD-10 - E78.01)Instructed on diet and exercise with continued statin therapy.Discussed the beneficial effects of lo wering cholesterol in reducing the risk for cerebrovascular and cardiovascular disease. October,Irritable bowel syndrome with diarrhea (ICD-10 - K58.0)Reassured, heatlh/high fiber diet. No N/V, melena or hematochezia October,radycardia (ICD-10 - R00.1)Secondary to Amiodarone. Recently decreased to 100mg qod. F/U Cardiology [facility] Other 05-05-2023 Evaluation note* Encounter Date Diagnosis Assessment Notes Treatment Notes Treatment Clinical Notes October, Paroxysmal atrial fibrillation ( ICD-10 - I48.0) [facility] Other 05-02-2023 Evaluation note* Encounter Date Diagnosis [...] and exercise. Reviewed age-appropriate preventive testing recommended. October,SHD (arteriosclerotic heart disease) (ICD-10 - I25.10)This patient is stable without activity related CP, dyspnea or lightheadedness. They are instructedto continue exercise and AHA diet plan. October,Essential hypertension (ICD-10 - I10)This patient is instructed to consume a healthy, low-fat, low-salt diet. They are also encouraged to continue exercise to achieve/maintain a normal BMI. October,aroxysmal atrial fibrillation (ICD-10 - I48.0)This patient is in NSR or rate controlled. This patient is anticoagulated to prevent thromboembolic events. They are maintaining regular scheduled appts with their networks computer consultant. October,Hyperlipidemia type II (ICD-10 - E78.01)Instructed on diet and exercise with continued statin therapy.Discussed the beneficial effects of lo wering cholesterol in reducing the risk for cerebrovascular and cardiovascular disease. October,astroesophageal reflux disease with esophagitis without hemorrhage (ICD-10 - K21.00)Diet instructions: Smaller portions, avoid eating and laying flat, avoid eating or drinking prior to bedtime. Weight loss. Resume PPI Referral to GI to consider EGD October,Iron deficiency anemia due to chronic blood loss (ICD-10 - D50.0) Colonoscopy 2020 w/o abnormal findings. EGD to r/o PUD, gastritis, esophagitis etc Malabsorption due to PPI ? [facility] Other 04-07-2023 Evaluation note* Encounter Date Diagnosis Assessment Notes Treatment Notes Treatment Clinical Notes Sep, Essential hypertension (ICD-10 - I10) This patient is instructed to consume a healthy, low-fat, low-salt diet. They are also encouraged to continue exercise to achieve/maintain a normal BMI. Sep,SHD (arteriosclerotic heart disease) (ICD-10 - I25.10)This patient is stable without activity related CP, dyspnea or lightheadedness. They are instructedto continue exercise and AHA diet plan. Sep,aroxysmal atrial fibrillation (ICD-10 - I48.0)This patient is in NSR or rate controlled. This patient is anticoagulated to prevent thromboembolic events. They are maintaining regular scheduled appts with their networks computer consultant. Sep,Iron deficiency anemia due to chronic blood loss (ICD-10 - D50.0)Fe supplements qod. Recheck Ferritin, Fe, H/H in October. MOnitor for ongoing bleeding Sep,Rectal bleeding (ICD-10 - K62.5)This has resolved. AC continued. 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 Recent change in bowel habits to diarrhea. Dietary changes, d/c PPI, start Metamucil May require referral back to GI Sep,astroesophageal reflux disease without esophagitis (ICD-10 - K21.9) Asymptomatic Diet instructions Hold PPI and monitor for recurrent symptoms Sep,Irritable bowel syndrome with diarrhea (ICD-10 - K58.0)Healthy diet Start Metamucil May trial Levsin if continues Sep,Hyperlipidemia type II (ICD-10 - E78.01)Diet and exercise with continued statin therapy. [facility] Other 03-09-2023 Evaluation note* Encounter Date Diagnosis Assessment Notes Treatment Notes Treatment Clinical Notes Aug, Salpingitis of both eustachian t ubes (ICD-10 - H68.003) Flonase bid x 5 days, than qd. Valsalva multiple times No improvement, may require referral to ENT Aug,Fecal urgency (ICD-10 - R15.2)Diet instructions. Restart Metamucil [facility]shi Other 02-22-2023 Evaluation note* Encounter Date Diagnosis Assessment Notes Treatment Notes Treatment Clinical Notes Jul, Paroxysmal atrial fibrillation ( ICD-10 - I48.0) This patient is in NSR. This patient is anticoagulated to prevent thromboembolic events. They are maintaining regular scheduled appts with their networks computer consultant. Jul,SHD (arteriosclerotic heart disease) (ICD-10 - I25.10)This patient is stable without activity related CP, dyspnea or lightheadedness. They are instructedto continue exercise and AHA diet plan. Jul,Essential hypertension (ICD-10 - I10)This patient is instructed to consume a healthy, low-fat, low-salt diet. They are also encouraged to continue exercise to achieve/maintain a normal BMI. Jul,Hyperlipidemia type II (ICD-10 - E78.01)Diet and exercise with continued statin therapy. Jul,Lumbar spondylosis (ICD-10 - M47.816)The patient is instructed to avoid bending, twisting or lifting. They are to use intermittent heat and ice as needed. They may schedule a massage or gentle manipulation. They may safely use Tylenol as needed. Reviewed his MRI - offered referral to PT Jul,astroesophageal reflux disease with esophagitis without hemorrhage (ICD-10 - K21.00)Diet instructions: Smaller portions, avoid eating and laying flat, avoid eating or drinking prior to bedtime. Weight loss. Jul,Irritable bowel syndrome with diarrhea (ICD-10 - K58.0)Diet instructions, add Metamucl [facility]shi Other 11-17-2022 NoteCONSULTATION CONSULTATION DATE: 05/13/2022 This [...] patient is in agreement to this. [id number] NoteCONSULTATION CONSULTATION DATE: 03/25/2022 HISTORY OF PRESENT [...] followed up in the clinic post procedure.[facility] [id number] NoteCONSULTATION CONSULTATION DATE: 02/09/2022 CHIEF COMPLAINT: Low [...] like to proceed. CC: Irving Canela D.O.[facility] [id number] NoteCONSULTATION CONSULTATION DATE: 01/19/2022 CHIEF COMPLAINT: Chronic [...] CC: Brendon Ceja M.D. Irving Canela D.O.[facility] [id number] NotePROCEDURE: XR HIP RT 2 3V W [...] authenticated by: LYNDA BYNUM Date: 2021-12-30 11:33[facility] HospitalEvaluation + Plan note No data available for this section [facility] evaluation noteNo assessment information available [facility] Work Phone: Evaluation noteNo InformationNort Flare Code Other Evaluation note* Diagnosis Onset Date Resolution Status Coronary artery disease acuteDizzinessacuteDyspneaacuteEssential hypertensionacuteHistory of heart artery stentacuteHyperlipidemiaacutePre-syncopeacute [facility] Work Phone: Evaluation note* Diagnosis Onset Date Resolution Status Change in bowel function acute [facility] Work Phone: Evaluation note* Diagnosis Bradycardia Other specified cardiac dysrhythmias H/O non-ST elevation myocardial infarction (NSTEMI) Paroxysmal atrial fibrillation (CMS/HCC) Atrial fibrillation S/P PTCA (percutaneous transluminal coronary angioplasty) Postsurgical percutaneous transluminal coronary angioplasty status documented in this encounter [facility] Work Phone: Evaluation note* Diagnosis Onset Date Resolution Status ASHD (arteriosclerotic heart disease) acuteEssential hypertensionacuteGastroesophageal reflux disease with esophagitis without hemorrhageacuteIron deficiency anemia due to chronic blood lossacute Paroxysmal atrial fibrillationacute [facility] Work Phone: Evaluation note* Diagnosis Onset Date Resolution Status ASHD (arteriosclerotic heart disease) acuteEssential hypertensionacuteGastroesophageal reflux disease with esophagitis without hemorrhageacuteIron deficiency anemia due to chronic blood lossacute Paroxysmal atrial fibrillationacuteAbdominal painacuteIron deficiency anemia acuteIrritable bowel syndrome with diarrheaacuteAbdominal painacuteFecal urgency acuteGas bloat syndromeacuteGroin painacuteIron deficiency anemia due to chronic blood lossacuteLoose stoolsacute [facility] Work Phone: Evaluation note* Diagnosis Diarrhea, unspecified type- Primary [facility] Diagnosis Seborrheic keratosis- Primary Lentigines History of SCC (squamous cell carcinoma) of skin Personal history of other malignant neoplasm of skin History of malignant melanoma of skin Personal history of malignant melanoma of skin Actinic keratosis Neoplasm of unspecified behavior of bone, soft tissue, and skin [facility] Coronary artery disease involving pe[place] coronary artery of pe[place] heart without angina pectoris Bradycardia Other specified [...] pain, unspecified type documented in this encounter [facility] Work Phone: Evaluation note* Diagnosis Chest pain, unspecified type documented in this encounter [facility] Work Phone: Evaluation note* Diagnosis Drug-induced [...] HealthcareEvaluation note* Diagnosis Coronary artery disease involving pe[place] coronary artery of peoria heart without angina pectoris Bradycardia Other specified cardiac dysrhythmias H/O non-ST elevation myocardial infarction (NSTEMI) S/P PTCA (percutaneous transluminal coronary angioplasty) Postsurgical percutaneous transluminal coronary angioplasty status High risk medication use Paroxysmal atrial fibrillation (Multi) Atrial fibrillation Mixed hyperlipidemia Former smoker Personal history of tobacco use, presenting hazards to health BMI 29.0-29.9,adult documented in this encounter [facility] Work Phone: Evaluation note* Diagnosis Mohs [...] Inflammatory papule [facility] Diagnosis Seborrheic keratosis- Primary Neoplasm of unspecified behavior of bone, soft tissue, and skin Actinic keratosis Lentigines History of malignant melanoma of skin Personal history of malignant melanoma of skin documented in this encounter [facility] HealthcareHistory and physical note Author Karol Sage [facility] October 28, 2022 11:21pmNote Date/TimeMay 2022 11:01pmPeter Ville [id number] Hospitalist H&P Signed Patient: Valentín Buckner MR#: [id number] : 1940 Acct:[id number] Age/Sex: 82 / M Adm Date: 3 Loc: 3T Room: 4N0998-1 Type: ADM INOo Attending Dr: Karol Sage [...] Reports he is on Eliquis twice daily andhasnot taken his nighttime dose today. He reports he is allergic to Plavix. Denies any fevers, chills,nausea, vomiting, diarrhea, dysuria, hematochezia, melena, dysuria, weakness, [...] % (Auto) 24.4 % (.) 10/28/22 21:10 Bibb % (Auto) 11.8 % (.) 10/28/22 21:10 Eos % (Auto) 0.9 % (.) 10/28/22 21:10 Baso % (Auto) 0.4 % (.) 10/28/22 21:10 Nucleat RBC Rel Count 0.0 /100 WBC (0-0.5) 10/28/22 21:10 Neut # (Auto) 5.6 x10E3/uL (1.8-7.7) 10/28/22 21:10 Lymph # (Auto) 2.2 x10E3/uL (1.00-4.8) 10/28/22 21:10 Bibb # (Auto) 1.0 x10E3/uL (0.0-0.8) H 10/28/22 [...] Milly Documented By: Karol Sage MD 10/28/22 Signed By: <Electronically signed by Karol Sage MD> 10/28/221 <Electronically signed by DO NANDINI Pena> 10/28/22 2319 [facility] Work Phone: History general Narrative - Reported* Type Description Date Medical History Paroxysmal atrial fibrillation Medical HistoryNSTEMI (non-ST elevated myocardial infarction)Medical History Arthritis of hand, rightMedical HistoryRectal bleedingMedical HistoryPruritic rashMedical HistoryArthritis of right hipMedical HistoryPrimary insomniaMedical HistoryAdenomatous polyp of descending colonMedical HistoryLung noduleMedical HistoryEpisodic tension-type headache, not intractableMedical HistoryAcute seasonal allergic rhinitis due to pollenMedical HistoryParesthesiaMedical HistoryLeft carotid bruitMedical HistoryH/O prostate cancerMedical HistoryLumbar spondylosisMedical HistoryEssential hypertensionMedical HistoryHyperlipidemia type IIMedical HistoryAcute right hip painMedical HistoryLumbar painMedical HistoryEdema of both lower extremitiesMedical HistoryASHD (arteriosclerotic heart disease)Medical HistoryMalignant melanomaMedical HistoryIdiopathic neuropathyMedical HistoryBasal cell carcinomaMedical HistoryBRADYCARDIA, DRUG INDUCEDSurgical HistoryCATHERIZATION, HEART, [id number] HistoryCOLONOSCOPY 2011,2017,urgical HistoryDISECTOMY, LUMBARSurgical HistoryPTCA/STENT Surgical HistoryPCI/STENT [id number] HistorySEE SURGICAL [facility]shi Other History general Narrative - Reported* Type Description Date Medical History Paroxysmal atrial fibrillation Medical HistoryNSTEMI (non-ST elevated myocardial infarction)Medical History Arthritis of hand, rightMedical HistoryRectal bleedingMedical HistoryPruritic rashMedical HistoryArthritis of right hipMedical HistoryPrimary insomniaMedical HistoryAdenomatous polyp of descending colonMedical HistoryLung noduleMedical HistoryEpisodic tension-type headache, not intractableMedical HistoryAcute seasonal allergic rhinitis due to pollenMedical HistoryParesthesiaMedical HistoryLeft carotid bruitMedical HistoryH/O prostate cancerMedical HistoryLumbar spondylosisMedical HistoryEssential hypertensionMedical HistoryHyperlipidemia type IIMedical HistoryAcute right hip painMedical HistoryLumbar painMedical HistoryEdema of both lower extremitiesMedical HistoryASHD (arteriosclerotic heart disease)Medical HistoryMalignant melanomaMedical HistoryIdiopathic neuropathyMedical HistoryBasal cell carcinomaMedical HistoryBRADYCARDIA, DRUG INDUCEDMedical HistoryErosive esophagitis, duodenitisSurgical History CATHERIZATION, HEART, [id number],2017,urgical HistoryDISECTOMY, LUMBARSurgical HistoryPTCA/STENTSurgical HistoryPCI/STENT LAD 2016Surgical ZisgvanKskwxzpwpqq86/2023Surgical HistoryEGD w/ bx03/2023 Hospitalization HistorySEE SURGICAL HX [facility] [employer] Other History of Present illness Narrative* The [...] medication regimen. He denies medication side effects. [facility] 250 DO Work Phone: History of Present [...] medication regimen. He denies medication side effects. [facility] 600 DO Work Phone: History of Present illness Narrative* Patient returns in follow-up of problems as noted. This first time I am seeing him. In the past he was under the care of Dr. Baron and Florence Aden for coronary disease with intervention. Recently he is having problems with paroxysmal atrial fibrillation and bradycardia. Ultimately he was switchedto amiodarone with uatsdin of sinus rhythm, today, and a better [...] in several months and make additional recommendations. [facility] [place] DO Work Phone: History of Present illness Narrative* Patient returns in follow-up of problems as noted. This first time I am seeing him. In the past he was under the care of Dr. Baron and Florence Aden for coronary disease with intervention. Recently he is having problems with paroxysmal atrial fibrillation and bradycardia. Ultimately he was switchedto amiodarone with uatsdin of sinus rhythm, today, and a better [...] in several months and make additional recommendations. [facility] [place] [employer] 250 DO Work Phone: History of Present illness Narrative* The patient states he has been generally doing well since the last visit. Comorbid Illnesses: hypertension and hyperlipidemia. * Symptoms: denies chest pain at rest, denies exertional chest pain, denies dyspnea, stable fatigue, denies exercise intolerance, denies palpitations, denies edema, resolved dizziness and denies orthostatic dizziness. * Associated symptoms: no syncope. * Disease Monitoring: [facility] [employer] [facility] Work Phone: History of Present illness [...] medication regimen. He denies medication side effects. [facility] [employer] [facility] Work Phone: History of Present illness [...] medication regimen. He denies medication side effects. [facility] [employer] DO Work Phone: Hospital Discharge instructions Additional [...] if you have any problems. -Office number [phone] [facility] Work Phone: Hospital Discharge instructionsAmbulatory Orders* Breath test for SIBO Time Frame: 02/02/24, Location: [facility] Work Phone: Progress note No data available for this section [facility] reason for referral (narrative)* Reason Referral for Fe defi ciency anemia and GERD Diagnosis 1 Gastroesophageal ref lux disease with esophagitis without hemorrhage (K21.00) Referral Organization [facility] Rola Garcia C linconrad Referring Provider First Name Irving Referring Provider Last Name Rola Referring Provider Specialty Internal Me dicine Referred Organization [facility] Gastroenterolo gy Referred Provider Michael Bahena Referred Address [address],[place] [address] ,[place], [place],[address] Referred Provider Specialty Gastroentero logy Referral Priority Routine [place] Flare Code Other Reason for referral (narrative)No reason for referral [facility]Kn[facility] Work Phone: Summary Purpose Family History No Family History Records FoundUnknown Family Member Name Dates Details Family history of malignant neoplasm of colon: Father(V16.0, Z80.0) Status:ActiveFamily history of lung cancer: Father(V16.1, Z80.1) Status:ActiveFamily history of malignant neoplasm of breast: Sister(V16.3, Z80.3) Status:ActiveFamily history of PTCA: Sister(V17.49, Z82.49) Status:ActiveFamily history of dementia: Sister(V17.2, Z81.8) Status:ActiveFamily history of myocardial infarction: Brother(V17.3, Z82.49) Status:Active Unknown Family Member Name Dates Details Family history of malignant neoplasm of colon: Father(V16.0, Z80.0) Status:ActiveFamily history of lung cancer: Father(V16.1, Z80.1) Status:ActiveFamily history of malignant neoplasm of breast: Sister(V16.3, Z80.3) Status:ActiveFamily history of PTCA: Sister(V17.49, Z82.49) Status:ActiveFamily history of dementia: Sister(V17.2, Z81.8) Status:ActiveFamily history of myocardial infarction: Brother(V17.3, Z82.49) Status:Active Unknown Family Member Name Dates Details Family history of malignant neoplasm of colon: Father(V16.0, Z80.0) Status:ActiveFamily history of lung cancer: Father(V16.1, Z80.1) Status:ActiveFamily history of malignant neoplasm of breast: Sister(V16.3, Z80.3) Status:ActiveFamily history of PTCA: Sister(V17.49, Z82.49) Status:ActiveFamily history of dementia: Sister(V17.2, Z81.8) Status:ActiveFamily history of myocardial infarction: Brother(V17.3, Z82.49) Status:Active Unknown Family Member Name Dates Details Family history of malignant neoplasm of colon: Father(V16.0, Z80.0) Status:ActiveFamily history of lung cancer: Father(V16.1, Z80.1) Status:ActiveFamily history of malignant neoplasm of breast: Sister(V16.3, Z80.3) Status:ActiveFamily history of PTCA: Sister(V17.49, Z82.49) Status:ActiveFamily history of dementia: Sister(V17.2, Z81.8) Status:ActiveFamily history of myocardial infarction: Brother(V17.3, Z82.49) Status:Active Unknown Family Member Name Dates Details Family history of malignant neoplasm of colon: Father(V16.0, Z80.0) Status:ActiveFamily history of lung cancer: Father(V16.1, Z80.1) Status:ActiveFamily history of malignant neoplasm of breast: Sister(V16.3, Z80.3) Status:ActiveFamily history of PTCA: Sister(V17.49, Z82.49) Status:ActiveFamily history of dementia: Sister(V17.2, Z81.8) Status:ActiveFamily history of myocardial infarction: Brother(V17.3, Z82.49) Status:Active Unknown Family Member Name Dates Details Family history of malignant neoplasm of colon: Father(V16.0, Z80.0) Status:ActiveFamily history of lung cancer: Father(V16.1, Z80.1) Status:ActiveFamily history of malignant neoplasm of breast: Sister(V16.3, Z80.3) Status:ActiveFamily history of PTCA: Sister(V17.49, Z82.49) Status:ActiveFamily history of dementia: Sister(V17.2, Z81.8) Status:ActiveFamily history of myocardial infarction: Brother(V17.3, Z82.49) Status:Active Unknown Family Member Name Dates Details Family history of malignant neoplasm of colon: Father(V16.0, Z80.0) Status:ActiveFamily history of lung cancer: Father(V16.1, Z80.1) Status:ActiveFamily history of malignant neoplasm of breast: Sister(V16.3, Z80.3) Status:ActiveFamily history of PTCA: Sister(V17.49, Z82.49) Status:ActiveFamily history of dementia: Sister(V17.2, Z81.8) Status:ActiveFamily history of myocardial infarction: Brother(V17.3, Z82.49) Status:Active Unknown Family Member Name Dates Details Family history of malignant neoplasm of colon: Father(V16.0, Z80.0) Status:ActiveFamily history of lung cancer: Father(V16.1, Z80.1) Status:ActiveFamily history of malignant neoplasm of breast: Sister(V16.3, Z80.3) Status:ActiveFamily history of PTCA: Sister(V17.49, Z82.49) Status:ActiveFamily history of dementia: Sister(V17.2, Z81.8) Status:ActiveFamily history of myocardial infarction: Brother(V17.3, Z82.49) Status:Active Unknown Family Member Name Dates Details Family history of malignant neoplasm of colon: Father(V16.0, Z80.0) Status:ActiveFamily history of lung cancer: Father(V16.1, Z80.1) Status:ActiveFamily history of malignant neoplasm of breast: Sister(V16.3, Z80.3) Status:ActiveFamily history of PTCA: Sister(V17.49, Z82.49) Status:ActiveFamily history of dementia: Sister(V17.2, Z81.8) Status:ActiveFamily history of myocardial infarction: Brother(V17.3, Z82.49) Status:Active Unknown Family Member Name Dates Details Family history of malignant neoplasm of colon: Father(V16.0, Z80.0) Status:ActiveFamily history of lung cancer: Father(V16.1, Z80.1) Status:ActiveFamily history of malignant neoplasm of breast: Sister(V16.3, Z80.3) Status:ActiveFamily history of PTCA: Sister(V17.49, Z82.49) Status:ActiveFamily history of dementia: Sister(V17.2, Z81.8) Status:ActiveFamily history of myocardial infarction: Brother(V17.3, Z82.49) Status:Active Unknown Family Member Name Dates Details Family history of malignant neoplasm of colon: Father(V16.0, Z80.0) Status:ActiveFamily history of lung cancer: Father(V16.1, Z80.1) Status:ActiveFamily history of malignant neoplasm of breast: Sister(V16.3, Z80.3) Status:ActiveFamily history of PTCA: Sister(V17.49, Z82.49) Status:ActiveFamily history of dementia: Sister(V17.2, Z81.8) Status:ActiveFamily history of myocardial infarction: Brother(V17.3, Z82.49) Status:Active Unknown Family Member Name Dates Details Family history of malignant neoplasm of colon: Father(V16.0, Z80.0) Status:ActiveFamily history of lung cancer: Father(V16.1, Z80.1) Status:ActiveFamily history of malignant neoplasm of breast: Sister(V16.3, Z80.3) Status:ActiveFamily history of PTCA: Sister(V17.49, Z82.49) Status:ActiveFamily history of dementia: Sister(V17.2, Z81.8) Status:ActiveFamily history of myocardial infarction: Brother(V17.3, Z82.49) Status:Active Unknown Family Member Name Dates Details Family history of malignant neoplasm of colon: Father(V16.0, Z80.0) Status:ActiveFamily history of lung cancer: Father(V16.1, Z80.1) Status:ActiveFamily history of malignant neoplasm of breast: Sister(V16.3, Z80.3) Status:ActiveFamily history of PTCA: Sister(V17.49, Z82.49) Status:ActiveFamily history of dementia: Sister(V17.2, Z81.8) Status:ActiveFamily history of myocardial infarction: Brother(V17.3, Z82.49) Status:Active Unknown Family Member Name Dates Details Family history of malignant neoplasm of colon: Father(V16.0, Z80.0) Status:ActiveFamily history of lung cancer: Father(V16.1, Z80.1) Status:ActiveFamily history of malignant neoplasm of breast: Sister(V16.3, Z80.3) Status:ActiveFamily history of PTCA: Sister(V17.49, Z82.49) Status:ActiveFamily history of dementia: Sister(V17.2, Z81.8) Status:ActiveFamily history of myocardial infarction: Brother(V17.3, Z82.49) Status:Active Unknown Family Member Name Dates Details Family history of malignant neoplasm of colon: Father(V16.0, Z80.0) Status:ActiveFamily history of lung cancer: Father(V16.1, Z80.1) Status:ActiveFamily history of malignant neoplasm of breast: Sister(V16.3, Z80.3) Status:ActiveFamily history of PTCA: Sister(V17.49, Z82.49) Status:ActiveFamily history of dementia: Sister(V17.2, Z81.8) Status:ActiveFamily history of myocardial infarction: Brother(V17.3, Z82.49) Status:Active Unknown Family Member Name Dates Details Family history of malignant neoplasm of colon: Father(V16.0, Z80.0) Status:ActiveFamily history of lung cancer: Father(V16.1, Z80.1) Status:ActiveFamily history of malignant neoplasm of breast: Sister(V16.3, Z80.3) Status:ActiveFamily history of PTCA: Sister(V17.49, Z82.49) Status:ActiveFamily history of dementia: Sister(V17.2, Z81.8) Status:ActiveFamily history of myocardial infarction: Brother(V17.3, Z82.49) Status:Active Unknown Family Member Name Dates Details Family history of malignant neoplasm of colon: Father(V16.0, Z80.0) Status:ActiveFamily history of lung cancer: Father(V16.1, Z80.1) Status:ActiveFamily history of malignant neoplasm of breast: Sister(V16.3, Z80.3) Status:ActiveFamily history of PTCA: Sister(V17.49, Z82.49) Status:ActiveFamily history of dementia: Sister(V17.2, Z81.8) Status:ActiveFamily history of myocardial infarction: Brother(V17.3, Z82.49) Status:Active Unknown Family Member Name Dates Details Family history of malignant neoplasm of colon: Father(V16.0, Z80.0) Status:ActiveFamily history of lung cancer: Father(V16.1, Z80.1) Status:ActiveFamily history of malignant neoplasm of breast: Sister(V16.3, Z80.3) Status:ActiveFamily history of PTCA: Sister(V17.49, Z82.49) Status:ActiveFamily history of dementia: Sister(V17.2, Z81.8) Status:ActiveFamily history of myocardial infarction: Brother(V17.3, Z82.49) Status:Active Unknown Family Member Name Dates Details Family history of malignant neoplasm of colon: Father(V16.0, Z80.0) Status:ActiveFamily history of lung cancer: Father(V16.1, Z80.1) Status:ActiveFamily history of malignant neoplasm of breast: Sister(V16.3, Z80.3) Status:ActiveFamily history of PTCA: Sister(V17.49, Z82.49) Status:ActiveFamily history of dementia: Sister(V17.2, Z81.8) Status:ActiveFamily history of myocardial infarction: Brother(V17.3, Z82.49) Status:Active Unknown Family Member Name Dates Details Family history of malignant neoplasm of colon: Father(V16.0, Z80.0) Status:ActiveFamily history of lung cancer: Father(V16.1, Z80.1) Status:ActiveFamily history of malignant neoplasm of breast: Sister(V16.3, Z80.3) Status:ActiveFamily history of PTCA: Sister(V17.49, Z82.49) Status:ActiveFamily history of dementia: Sister(V17.2, Z81.8) Status:ActiveFamily history of myocardial infarction: Brother(V17.3, Z82.49) Status:Active Unknown Family Member Name Dates Details Family history of malignant neoplasm of colon: Father(V16.0, Z80.0) Status:ActiveFamily history of lung cancer: Father(V16.1, Z80.1) Status:ActiveFamily history of malignant neoplasm of breast: Sister(V16.3, Z80.3) Status:ActiveFamily history of PTCA: Sister(V17.49, Z82.49) Status:ActiveFamily history of dementia: Sister(V17.2, Z81.8) Status:ActiveFamily history of myocardial infarction: Brother(V17.3, Z82.49) Status:Active Unknown Family Member Name Dates Details Family history of malignant neoplasm of colon: Father(V16.0, Z80.0) Status:ActiveFamily history of lung cancer: Father(V16.1, Z80.1) Status:ActiveFamily history of malignant neoplasm of breast: Sister(V16.3, Z80.3) Status:ActiveFamily history of PTCA: Sister(V17.49, Z82.49) Status:ActiveFamily history of dementia: Sister(V17.2, Z81.8) Status:ActiveFamily history of myocardial infarction: Brother(V17.3, Z82.49) Status:Active Unknown Family Member Name Dates Details Family history of malignant neoplasm of colon: Father(V16.0, Z80.0) Status:ActiveFamily history of lung cancer: Father(V16.1, Z80.1) Status:ActiveFamily history of malignant neoplasm of breast: Sister(V16.3, Z80.3) Status:ActiveFamily history of PTCA: Sister(V17.49, Z82.49) Status:ActiveFamily history of dementia: Sister(V17.2, Z81.8) Status:ActiveFamily history of myocardial infarction: Brother(V17.3, Z82.49) Status:Active Unknown Family Member Name Dates Details Family history of malignant neoplasm of colon: Father(V16.0, Z80.0) Status:ActiveFamily history of lung cancer: Father(V16.1, Z80.1) Status:ActiveFamily history of malignant neoplasm of breast: Sister(V16.3, Z80.3) Status:ActiveFamily history of PTCA: Sister(V17.49, Z82.49) Status:ActiveFamily history of dementia: Sister(V17.2, Z81.8) Status:ActiveFamily history of myocardial infarction: Brother(V17.3, Z82.49) Status:Active Unknown Family Member Name Dates Details Family history of malignant neoplasm of colon: Father(V16.0, Z80.0) Status:ActiveFamily history of lung cancer: Father(V16.1, Z80.1) Status:ActiveFamily history of malignant neoplasm of breast: Sister(V16.3, Z80.3) Status:ActiveFamily history of PTCA: Sister(V17.49, Z82.49) Status:ActiveFamily history of dementia: Sister(V17.2, Z81.8) Status:ActiveFamily history of myocardial infarction: Brother(V17.3, Z82.49) Status:Active Unknown Family Member Name Dates Details Family history of malignant neoplasm of colon: Father(V16.0, Z80.0) Status:ActiveFamily history of lung cancer: Father(V16.1, Z80.1) Status:ActiveFamily history of malignant neoplasm of breast: Sister(V16.3, Z80.3) Status:ActiveFamily history of PTCA: Sister(V17.49, Z82.49) Status:ActiveFamily history of dementia: Sister(V17.2, Z81.8) Status:ActiveFamily history of myocardial infarction: Brother(V17.3, Z82.49) Status:Active Unknown Family Member Name Dates Details Family history of malignant neoplasm of colon: Father(V16.0, Z80.0) Status:ActiveFamily history of lung cancer: Father(V16.1, Z80.1) Status:ActiveFamily history of malignant neoplasm of breast: Sister(V16.3, Z80.3) Status:ActiveFamily history of PTCA: Sister(V17.49, Z82.49) Status:ActiveFamily history of dementia: Sister(V17.2, Z81.8) Status:ActiveFamily history of myocardial infarction: Brother(V17.3, Z82.49) Status:Active Unknown Family Member Name Dates Details Family history of malignant neoplasm of colon: Father(V16.0, Z80.0) Status:ActiveFamily history of lung cancer: Father(V16.1, Z80.1) Status:ActiveFamily history of malignant neoplasm of breast: Sister(V16.3, Z80.3) Status:ActiveFamily history of PTCA: Sister(V17.49, Z82.49) Status:ActiveFamily history of dementia: Sister(V17.2, Z81.8) Status:ActiveFamily history of myocardial infarction: Brother(V17.3, Z82.49) Status:Active Unknown Family Member Name Dates Details Family history of malignant neoplasm of colon: Father(V16.0, Z80.0) Status:ActiveFamily history of lung cancer: Father(V16.1, Z80.1) Status:ActiveFamily history of malignant neoplasm of breast: Sister(V16.3, Z80.3) Status:ActiveFamily history of PTCA: Sister(V17.49, Z82.49) Status:ActiveFamily history of dementia: Sister(V17.2, Z81.8) Status:ActiveFamily history of myocardial infarction: Brother(V17.3, Z82.49) Status:Active Unknown Family Member Name Dates Details Family history of malignant neoplasm of colon: Father(V16.0, Z80.0) Status:ActiveFamily history of lung cancer: Father(V16.1, Z80.1) Status:ActiveFamily history of malignant neoplasm of breast: Sister(V16.3, Z80.3) Status:ActiveFamily history of PTCA: Sister(V17.49, Z82.49) Status:ActiveFamily history of dementia: Sister(V17.2, Z81.8) Status:ActiveFamily history of myocardial infarction: Brother(V17.3, Z82.49) Status:Active Relationship Condition Age at Onset Recorded Date/T gary brother Myocardial infarction Unknown Unknown Family Member Name Dates Details Family history of malignant neoplasm of colon: Father(V16.0, Z80.0) Status:ActiveFamily history of lung cancer: Father(V16.1, Z80.1) Status:ActiveFamily history of malignant neoplasm of breast: Sister(V16.3, Z80.3) Status:ActiveFamily history of PTCA: Sister(V17.49, Z82.49) Status:ActiveFamily history of dementia: Sister(V17.2, Z81.8) Status:ActiveFamily history of myocardial infarction: Brother(V17.3, Z82.49) Status:Active Relationship Condition Age at Onset Recorded Date/T gary brother Myocardial infarction Unknown brotherDeceasedUnknownHeart diseaseUnknownfatherMalignant neoplasmUnknownFamily history of colon cancerUnknownDeceasedUnknownNot SpecifiedDeceasedUnknown Relationship Condition Age at Onset Recorded Date/T gary brother Myocardial infarction Unknown brotherDeceasedUnknownHeart diseaseUnknownfatherMalignant neoplasmUnknownFamily history of colon cancerUnknownDeceasedUnknownmotherDeceasedUnknown Advance Directives No Advanced Directives Records Found Advance Directive Response Recorded Date/ Time Advance Directives No February 2:38pm Advance Directive Response Recorded Date/ Time Advance Directives No February 1:38pm Hospital Course Note MR#: [id number] 2[facility] Pt. Name: Valentín Buckner Admitted: 05/09/2018 Discharged: 05/10/2018 Date of : 1940 Physician: Anna Hoyt MD [facility]: Dr. Irving Canela.PRINCIPAL PROBLEM:1. Chest pain, rule out acute coronary syndrome.2. History of CAD status post stents.3. Hypertension, well controlled.4. Unspecified dyslipidemia.CONSULTANTS: Cardiology.HOSPITAL COURSE: This is a 77-year-old male, who was seen at [facility] for concern for unstable angina. The [...] typical chest pain symptoms aswell. Workup at [facility] revealed an EKG that was normal [...] Ceja MD for review.Amiodarone Order sent to [facility] for testing due in October VALENTÍN BUCKNER [...] in 6 months Amiodarone Order sent to [facility] for testing due in FebruaryAmiodarone Order sent to [facility] for testing due in July 19Amiodarone Order sent to [facility] for testing due in September* Hospital f/u: 'doing ok' * VALENTÍN BUCKNER is being seen for follow-up of a hospitalization for dizziness. * Patient presents to the office ambulatory steady gait, is accompanied by his . Last evaluated in clinic Dr. Baron June 2022. At that time dose of amiodarone reduced 100 mg daily. * October 2022 presented to [facility] due to dizziness. Seen in consultation by [...] atrial fibrillation. We will proceed with 14-day Estorian. At this time amiodarone has been reduced [...] regarding bradycardia and he completed a 14-day Estorian. Results reviewed including no evidence of high-grade [...] Complaint i48.0 z79.899 Chief Complaint i48.0 z79.899 SOB/DizzinessReason for VisitCoronary artery disease Dizziness Dyspnea Essential hypertension History of heart artery stent Hyperlipidemia Pre-syncope Chief Complaint i48.0 z79.899 GERD, Change in Bowel HabitsReason for VisitChange in bowel function Chief Complaint Amb Documentation i48.0 z79.899 i48.0 z79.899 discuss low iron treatments Chief Complaint Amb Documentation i48.0 z79.899 i48.0 z79.899 discuss low iron treatments stomach painReason for VisitASHD (arteriosclerotic heart disease) Essential hypertension Gastroesophageal reflux disease with esophagitis without hemorrhage Iron deficiency anemia due to chronic blood loss Paroxysmal atrial fibrillation Chief Complaint Amb Documentation i48.0 z79.899 i48.0 z79.899 discuss low iron treatments stomach pain iron def anemiaReason for VisitASHD (arteriosclerotic heart disease) Essential hypertension Gastroesophageal reflux [...] loose stool loose stool Amb Documentation Medicare WellnessReason for VisitASHD (arteriosclerotic heart disease) Essential hypertension Gastroesophageal reflux [...] stool loose stool Amb Documentation Medicare Wellness UnknownReason for VisitASHD (arteriosclerotic heart disease) Essential hypertension Gastroesophageal reflux [...] Chief Complaint Medicare Wellness Unknown loose stools/fecal incontinenceReason for VisitASHD (arteriosclerotic heart disease) Essential hypertension Gastroesophageal reflux disease with esophagitis without hemorrhage Iron deficiency anemia due to chronic blood loss Irritable bowel syndrome with diarrhea Orchitis of both testicles Paroxysmal atrial fibrillation Medicare annual wellness visit, subsequent Chief Complaint loose stools/fecal i ncontinence 4 month follow upReason for VisitASHD (arteriosclerotic heart disease) Essential hypertension Gastroesophageal reflux disease with esophagitis without hemorrhage Iron deficiency anemia due to chronic blood loss Irritable bowel syndrome with diarrhea Paroxysmal atrial fibrillation Chief Complaint Admit Date 4 month follow up March 19, 2024 11:25am cough May 17, 2024 8:16am Reason for Visit Admit Date ASHD (arteriosclerotic heart disease) Se ptember 2023 11:25am Essential hypertension March 19, 2 024 11:25am Gastroesophageal reflux dise ase with [...] 10, 2024 1:46pm ASHD (arteriosclerotic heart disease) [facility] 2024 11:23am Essential hypertension July 19 11:23am [...] 10, 2024 1:46pm ASHD (arteriosclerotic heart disease) [facility] 2024 11:23am Essential hypertension July 19 11:23am [...] Visit Admit Date ASHD (arteriosclerotic heart disease) [facility] 2024 8:54am Paroxysmal atrial fibrillation August 8:54am [...] Visit Admit Date ASHD (arteriosclerotic heart disease) [facility] 2024 8:54am Paroxysmal atrial fibrillation August 8:54am Strain of gastrocnemius tendon of right lower extremity September 19, 2024 8:54am GERD (gastroesophageal reflux disease) M ay 2024 10:23am IBS (irritable bowel syndrome) October 29, 2024 10:23am Small intestinal bacterial overgrowth (S IBO) October 29, 2024 10:23am ASHD (arteriosclerotic heart disease) Tess y 2024 11:20am Essential hypertension November 16, 2024 11 :20am Gastroesophageal reflux dise ase with esophagitis without hemorrhage November 16, 2024 11:20am Iron deficiency anemia due to chronic bl ood loss November 16, 2024 11:20am Irritable bowel syndrome with diarrhea M ay 2024 11:20am Paroxysmal atrial fibrillation November 16, 2024 11:20am Primary insomnia November 16, 2024 11:20 am Medicare annual wellness visit, [facility] November 16, 2024 11:20am Chief Complaint Admit Date right tendon heel pain September 19, 2024 8:54am Diarrhea October 29, 2024 10:23a m Wellness November 16, 2024 11:20 am cough November 30, 2024 1:45p m Reason for Visit Admit Date ASHD (arteriosclerotic heart disease) [facility] 2024 8:54am Paroxysmal atrial fibrillation August 8:54am Strain of gastrocnemius tendon of right lower extremity September 19, 2024 8:54am GERD (gastroesophageal reflux disease) M 2024 10:23am Small intestinal bacterial overgrowth (S [...] 16, 2024 11:20am Medicare annual wellness visit, [facility] November 16, 2024 11:20am Chief Complaint Admit Date 4 month/R Hip Pain March 01, 2025 1:21pm Reason for Visit Admit Date ASHD (arteriosclerotic heart disease) Se pt2024 1:21pm Essential hypertension March 01 1:21pm Gastroesophageal reflux dise ase with esophagitis without hemorrhage March 01, 2025 1:21pm Hip pain March 01, 2025 1:21pm Iron deficiency anemia due to chronic bl ood loss March 01, 2025 1:21pm Lung nodule March 01, 2025 1:21pm Paroxysmal atrial fibrillation March 01, 2025 1:21pm Primary insomnia March 01, 2025 1:21pm Reason for Referral SpecialtyDiagnoses / ProceduresReferred By ContactReferred To ContactCardiology Diagnoses Chest pain, unspecified type Procedures Nuclear Stress Test CHG MYOCARDIAL SPECT MULTIPLE STUDIES Brendon Baron, DO [address] [place] [address] Referral IDStatusReasonStart DateExpiration DateVisits RequestedVisits [id number] Review Perform Procedure [id number] / ProceduresReferred By ContactReferred To Contact Diagnoses Paroxysmal atrial fibrillation (Multi) Procedures ECG 12 Lead Brendon Baron, DO [address] [place] [id number] Referral IDStatusReasonStart DateExpiration DateVisits RequestedVisits [id number]/3/20247/3/917083CsmxfbhsyErretdnvi / Procedures Referred By ContactReferred To ContactCardiology Diagnoses Coronary artery disease involving [place] coronary artery of [place] heart without angina pectoris Procedures Follow Up In Cardiology Brendon Baron, DO [address] [place] [id number] Brendon Baron, DO [address] [place] [id number] Referral IDStatusReasonStdayton DateExpiration DateVisits RequestedVisits [id number]/3/20247/3/550218GbblikvjySsnxexbub / Procedures Referred By ContactReferred To Contact Diagnoses Bradycardia Procedures ECG 12 Lead Brendon Baron, DO [address] [place] [address] Referral IDStatusReasonStart DateExpiration DateVisits RequestedVisits [id number]/29/20241/28/577432WcinnkqfbGysqdwrjk / Procedures Referred By ContactReferred To ContactCardiology Diagnoses Bradycardia H/O non-ST elevation myocardial infarction (NSTEMI) S/P PTCA (percutaneous transluminal coronary angioplasty) Procedures Follow Up In Cardiology Brendon Baron, DO [address] [place] [address] Brendon Baron, DO [address] [place] [address] Referral IDStatusReasonStart DateExpiration DateVisits RequestedVisits [id number]/29/20241/28/202511 Additional Source Comments (unrecognized sect ion and content) No Status Records FoundNo Status Records FoundNo Status Records FoundNo Status Records FoundNo Status Records FoundNo Status Records FoundNo Status Records FoundNo Status Records FoundNo Status Records Found INFORMATION SOURCE (unrecogn ized section and content) DATE CREATED AUTHOR 06/18/2018 [facility] DATE CREATED AUTHOR AUTHOR'S ORGANIZ ATION 10/24/2022 [facility] DATE CREATED AUTHOR AUTHOR'S ORGANIZ ATION 03/31/2023 [facility] DATE CREATED AUTHOR AUTHOR'S ORGANIZ ATION 04/01/2023 [email or web address] DATE CREATED AUTHOR AUTHOR'S ORGANIZ ATION 01/09/2024 [facility] DATE CREATED AUTHOR AUTHOR'S ORGANIZ ATION 02/15/2024 [facility] DATE CREATED AUTHOR AUTHOR'S ORGANIZ ATION 08/31/2024 [facility] DATE CREATED AUTHOR AUTHOR'S ORGANIZ ATION 09/02/2024 [facility] DATE CREATED AUTHOR AUTHOR'S ORGANIZ ATION 03/07/2025 [facility] EPIC Reason for Visit (unrecogniz ed section and content) ReasonCommentsAnnual ExamReasonCommentsBreath Hydrogen TestSIBO Hydrogen Breath Test Results.ReasonCommentsSkin CheckReasonCommentsFollow-upBellevue ER 12/15 SpecialtyDiagnoses / ProceduresReferred By ContactReferred To ContactCardiology Diagnoses Chest pain, unspecified type Procedures Nuclear Stress Test CHG MYOCARDIAL SPECT MULTIPLE STUDIES Brendon Baron, [address] [place] [address] Referral IDStatusReasonStdayton DateExpiration DateVisits RequestedVisits [id number] Review Perform Procedure [id number] Micrographic SurgeryReasonCommentsMohs ReconstructionNew patient mohs neckSpecialtyDiagnoses / ProceduresReferred By ContactReferred To ContactOtolaryngology Diagnoses Basal cell carcinoma of skin of scalp and neck Procedures [place] OFFICE/OUTPATIENT [facility] 60 MINUTES Pedro Wagner MD [address] [place] [address] Phone: tel: fax: Irving Fonseca, DO [address] [place] [address] Phone: tel: fax: Ref[facility]Status[facility] DateExpiration DateVisits RequestedVisits [id number] [facility] Required /[id number] ExamSpecialtyDiagnoses / Procedures Referred By ContactReferred To ContactCardiology Diagnoses Bradycardia H/O non-ST elevation myocardial infarction (NSTEMI) S/P PTCA (percutaneous transluminal coronary angioplasty) Procedures Follow Up In Cardiology Brendon Baron, [address] [facility] [address], [place] [address] Phone: tel: fax: Brendon Baron, DO [address] [facility] [address], [place] [address] Phone: tel: fax: Referral IDStatus[facility] DateExpiration DateVisits RequestedVisits [id number]/29/20241/137333BngvjqGxrmahmqEsmm defect of neck Mohs defect of neckReasonCommentsPost-op1 month mindi Care Teams (unrecognized sec tion and content) Team Status: Active Member Role Status Dates Irving Canela DO Primary Care Provider Active Team Status: Inactive Member Role Status Dates NON STAFF Primary Care Provider Active Start: May 17, 2024 End: May 17jacqueline Canela DOAttending ProviderActiveStart: May 17, 2024 End: May 17, 2024 [...] Status: Inactive Member Role Status Dates Irving Canlea DO Primary Care Provide r, Attending Provider Active Start: November 15, 2023 End: November 15, 2023 Team Status: Inactive Member Role Status Dates Miriam Juarez MD Attending Provider Active St art: November 22, 2023 End: November 22, 2023 Team Status: Active Member Role Status Dates Irving Canela DO Primary Care Provider Active Start: November 22, 2023 Miriam Juarez MDAttending ProviderActiveStart: November 22, 2023 Team Status: Active Member Role Status Dates Jalen Hutchison MD Attending Provider Active St art: December 16, 2023 Team Status: Inactive Member Role Status Dates Colleen Ochoa MD Attending Provider Active Start: February 02, 2024 End: February 02, 2024NON STAFFPrimary Care ProviderActiveStart: February 02, 2024 End: February 02, 2024 Team Status: Active Member Role Status Dates Irving Canela DO Primary Care Provider Active Start: August 26, 2023 Wesley Perez ProviderActiveStart: August 26, 2023 Team Status: Inactive Member Role Status Dates Irving Canela DO Primary Care Provider Active Start: August 29, 2023 End: August 29, 2023W Murali Baron DOAttending ProviderActiveStart: August 29, 2023 End: August 29, 2023 Team Status: Active Member Role Status Dates Irving Canela DO Primary Care Provider Active Start: September 01, 2023 W Murali Baron DOOther ProviderActiveStart: September 01, 2023 Monty Cruz , MDAttending ProviderActiveStart: September 01, 2023 Team Status: Inactive Member Role Status Dates Irving Ball , DO Primary Care Provide r, Attending Provider Active Start: September 14, 2023 End: September 14, 2023 Team Status: Inactive Member Role Status Dates Irving Canela DO Primary Care Provider Active Alfred Baron DOAttending ProviderActive Team Status: Active Member Role Status Dates Irving Canela DO Primary Care Provider Active Tyrone Amaya Jr ProviderActiveRuta Semaskiene , MDAdmit Provider, Attending ProviderActive Team Status: Inactive Member Role Status Dates Irving Canela DO Primary Care Provider Active Markell Hines , MDAttending ProviderActiveTeam MemberRelationship SpecialtyStart DateEnd Date Irving Canela DO PCP - General06/27/99 Team Status: Inactive Member Role Status Cindy Canela DO Primary Care Provide r, Attending Provider Active Start: September 23, 2023 End: September 23, 2023 Team Status: Active Member Role Status Cindy Canela DO Primary Care Provide r, Attending Provider Active Start: 2023 Team Status: Inactive Member Role Status Cindy Canela DO Primary Care Provider Active Start: October 17, 2023 End: October 17, 2023Imad Asaad , MDAttending ProviderActiveStart: October 17, 2023 End: October 17, 2023 Team Status: Active Member Role Status Cindy Canela DO Primary Care Provider Active Start: October 20, 2023 Imad Asaad , MDAttending ProviderActiveStart: October 20, 2023 Team Status: Inactive Member Role Status Cindy Canela DO Primary Care Provider Active Start: October 26, 2023 End: October 26, 2023Imad Asaad , MDAttending ProviderActiveStart: October 26, 2023 End: October 26, 2023 Team Status: Active Member Role Status Cindy Canela DO Primary Care Provider Active Start: October 26, 2023 Imad Asaad , MDAttending Provider, Other ProviderActiveStart: October 26, 2023 Team Status: Active Member Role Status Cindy Canela DO Primary Care Provider Active Start: October 29, 2023 Nora Carmichael ProviderActiveStart: October 29, 2023 Team Status: Inactive Member Role Status Cindy Canela DO Attending Provider Active Sta rt: March 19, 2024 End: March 19, 2024NON STAFFPrmission hospitalry Care ProviderActiveStart: March 19, 2024 End: March 19, 2024Team MemberRelationshipSpecialtyStart DateEnd Date Irving Canela DO [address] [facility] [place] [address] PCP - GeneralInternal Szbryquc95/3/24 Team Status: Active Member Role Status Dates NON STAFF Primary Care Provider Active Start: April 11, 2024 Miriam Juarez MDAttkulwinder ProviderActiveStart: April 11, 2024 Team MemberRelationshipSpecialtyStart DateEnd Date Irving Canela DO PCP - General06/27/99Team MemberRelationshipSpecialtyStart DateEnd Date Irving Canela DO [address] [place] [address] PCP - GeneralInternal Medicine12/28/23Team MemberRelationshipSpecialtyStart Date End Date Irving Canela DO [address] [place] [address] PCP - GeneralInternal Medicine12/28/23Team MemberRelationshipSpecialtyStart Date End Date Irving Canela DO [address] [place] [address] PCP - GeneralInternal Medicine12/28/23Team MemberRelationshipSpecialtyStart Date End Date Irving Canela DO [address] [place] [address] PCP - GeneralInternal Medicine12/28/23Team MemberRelationshipSpecialtyStart Date End Date Irving Canela MD [address] [facility] [place] [address] PCP - GeneralInternal Medicine07/23/24Team MemberRelationshipSpecialtyStart Date End Date Irving Canela MD [address] [facility] [place] [address] PCP - GeneralInternal Medicine07/23/24Team MemberRelationshipSpecialtyStart Date End Date Irving Canela DO [address] [place] [address] PCP - GeneralInternal Medicine12/28/23Team MemberRelationshipSpecialtyStart Date End Date Irving Canela MD [address] [facility] [place] [address] PCP - GeneralInternal Medicine07/23/24 Pedro Wagner MD [address] [place] [address] Referring PhysicianDermatology2 Irving Fonseca DO [address] [place] [address] Otolaryngology2Team MemberRelationshipSpecialtyStart DateEnd Date Irving Canela MD [address] [facility] [place] [address] PCP - GeneralInternal Medicine07/23/24 Pedro Wagner MD [address] [place] [address] Referring PhysicianDermatolog08/01/24 Irving Fonseca DO [address] [place] [address] Otolaryngology2Team MemberRelationshipSpecialtyStart DateEnd Date Irving Canela MD [address] [facility] [place] [phone] PCP - GeneralInternal Medicine07/23/24 Pedro Wagner MD [address] [place] [address] Referring PhysicianDermatolog08/01/24 Irving Fonseca DO [address] [place] [address] Otolaryngolog08/01/24Team MemberRelationshipSpecialtyStart DateEnd Date Irving Canela MD [address] [facility] [place] [phone] PCP - GeneralInternal Medicine07/23/24 Pedro Wagner MD [address] [place] [address] Referring PhysicianDermatology2 Irving Fonseca DO [address] [place] [address] Otolaryngolog08/01/24 Team Status: Active Member Role Status Dates Irving Canela DO Primary Care Provider Active Start: July 26, 2024 W Murali Baron , DOAttending ProviderActiveStart: July 26, 2024 Team Status: Active Member Role Status Dates Irving Canela DO Primary Care Provider Active Start: July 27, 2024 Elliott Vieira DOAttending ProviderActiveStart: July 27, 2024 Team Status: Active Member Role Status Dates Irving Canela DO Primary Care Provide r, Attending Provider Active Start: July 27, 2024 Team Status: Active Member Role Status Dates Irving Canela DO Primary Care Provider Active Start: July 30, 2024 Clare Lipscomb , CMAAttending ProviderActiveStart: July 30, 2024 Team Status: Inactive Member Role Status Dates Irving Canela DO Primary Care Provider Active Start: August 28, 2024 End: August 28, 2024W Murali Baron DOAttending ProviderActiveStart: August 28, 2024 End: August 28, 2024 Team Status: Active Member Role Status Dates Irving Canela DO Primary Care Provider Active Start: August 28, 2024 W Murali Baron DOOther ProviderActiveStart: August 28, 2024 Monty Cruz , MDAttending ProviderActiveStart: August 28, 2024 Team Status: Inactive Member Role Status Dates Irving Canela DO Primary Care Provide r, Attending Provider Active Start: September 19, 2024 End: September 19, 2024 Team Status: Active Member Role Status Dates Irving Canela DO Primary Care Provider Active Start: September 25, 2024 Miriam Ann , MDAttending ProviderActiveStart: September 25, 2024 Team Status: Active Member Role Status Dates rIving Canela DO Primary Care Provider Active Start: October 01, 2024 Miriam Ann , MDAttending ProviderActiveStart: October 01, 2024 Team Status: Inactive Member Role Status Dates Irving Canela DO Primary Care Provider Active Start: October 29, 2024 End: October 29, 2024Colleen Ochoa MDAttending ProviderActiveStart: October 29, 2024 End: October 29, 2024 Team Status: Inactive Member Role Status Dates Irving Canela DO Primary Care Provide r, Attending Provider Active Start: November 16, 2024 End: November 16, 2024Team MemberRelationshipSpecialtyStart DateEnd Date Irving Canela DO PCP - GeneralInternal Medicine07/23/24 Pedro Wagner MD [address] [facility] [address] [place] [address] Referring PhysicianDerkstology2 Irving Fonseca DO [address] [place] [address] Otolaryngolog08/01/24Team MemberRelationshipSpecialtyStart DateEnd Date Irving Canela DO PCP - [facility]Hon[facility]ern[facility]07/23/24 Pedro Wagner MD [address] [facility] [address] [place] [address] Referring PhysicianWvumedicine [facility]08/01/24 Irving Fonseca DO [address] [place] [address] Otolaryngolog08/01/24 Team Status: Inactive Member Role Status Dates Irving Canela DO Primary Care Provide r, Attending Provider Active Start: November 30, 2024 End: November 30, 2024 Team Status: Inactive Member Role Status Dates Irving Canela DO Primary Care Provider Active Start: March 01, 2025 End: March 01jacqueline Canela DOAttending ProviderActiveStart: March 01, 2025 End: March 01, 2025Team MemberRelationshipSpecialtyStart DateEnd Date Irving Canela DO [address] [place] [address] PCP - GeneralInternal Medicine07/23/24 Pedro Wagner MD [address] [place] [address] Referring PhysicianDermatolog08/01/24 Irving Fonseca DO [address] [place] [address] Otolaryngolog08/01/24Team MemberRelationshipSpecialtyStart DateEnd Date Irving Canela DO [address] [facility] [place] [phone] PCP - GeneralInternal Medicine07/23/24 Pedro Wagner MD [address] [place] [address] Referring PhysicianDermatolog08/01/24 Irving Fonseca, DO [address] [place] [address] Otolaryngolog08/01/24 Goals (unrecognized section and content) Goals may [...] or prosecute any alcohol or drug abuse patient.[facility] FOR RECORDS PERTAINING TO PATIENTS WHO [...] BE BASED ON THE PRIMARY CLINICAL RECORDS. [employer] [facility]. provides no warranty or guarantee of the accuracy or completeness of information in this document.
[2025-04-18 14:44] LABS: Hematocrit 49.6 % (42.0-54.0); Hemoglobin 16.6 g/dL (14.0-18.0); Immature Granulocytes Abs Auto 0.02 10^3/uL (0.00-0.03); Immature Granulocytes Pct Auto 0.2 % (0.0-0.5); Lymphocytes Absolute Auto 1.8 10^3/uL (1.2-3.8); Mean Corpuscular HGB Conc 33.5 g/dL (29.9-35.2); Mean Corpuscular Hemoglobin 31.7 pg (25.9-34.0); Mean Corpuscular Volume 94.8 fL (80.0-94.0); Platelet Count 204 10^3/uL (150-450); Red Blood Count 5.23 10^6/uL (4.70-6.10); White Blood Count 10.3 10^3/uL (4.0-11.0)
[2025-04-18 15:03] LABS: Alanine Aminotransferase 29 U/L (16-63); Albumin Globulin Ratio 1.2; Albumin Level 3.7 g/dL (3.4-5.0); Alkaline Phosphatase 73 U/L (46-116); Anion Gap 12.8; Aspartate Amino Transferase 18 U/L (15-37); Blood Urea Nitrogen 21.0 mg/dL (7.0-18.0); Calcium 9.0 mg/dL (8.5-10.1); Carbon Dioxide 28.6 mmol/L (21.0-32.0); Chloride 105 mmol/L (98-107); Estimated GFR (African America >60 (>=60 mL/min/1.73m^2); Estimated GFR (Non-African Ame >60 (>=60 mL/min/1.73m^2); Globulin 3.1 g/dL; Glucose 83 mg/dL (74-106); Potassium 4.4 mmol/L (3.5-5.1); Sodium 142 mmol/L (136-145); Total Protein 6.8 g/dL (6.4-8.2)
[2025-04-18 15:18] LABS: Iron 179.0 ug/dL (65.0-175.0); Percent Iron Saturation 51.6 %; Total Iron Binding Capacity 347.0 ug/dL (250.0-450.0)
[2025-04-18 15:48] LABS: Ferritin 75.0 ng/mL (26.0-388.0)
[2025-04-19 04:07] LABS: Vitamin B12 682 pg/mL (232-1245)
== END 2025-04-18 14:00 | disposition home or self-care (01) ==
LOC: LAB 14:06
PROVIDERS: PCP Internal Medicine; Visit Provider Internal Medicine Hematology & Oncology
DX: D50.9 Iron deficiency anemia, unspecified (principal); K90.9 Intestinal malabsorption, unspecified; D64.9 Anemia, unspecified
CPT/HCPCS: 36415; 80053; 82607; 82728; 83540; 83550; 85025

== ENCOUNTER 2025-04-23 12:51 | Outpatient (RCR) | payer MEDICARE, OTHER, SELFPAY | END 2025-04-26 23:59 | disposition home or self-care (01) | LOC: HEMC 12:51 | PROVIDERS: PCP Internal Medicine; Visit Provider Internal Medicine Hematology & Oncology | DX: D50.9 Iron deficiency anemia, unspecified (principal); Z85.46 Personal history of malignant neoplasm of prostate; Z79.01 Long term (current) use of anticoagulants; Z87.891 Personal history of nicotine dependence; K90.9 Intestinal malabsorption, unspecified; K21.9 Gastro-esophageal reflux disease without esophagitis; D64.9 Anemia, unspecified | CPT/HCPCS: G0463 ==